=== PATIENT | female | born 1970 | race Two or more races ===

== ENCOUNTER 2024-08-23 09:55 | Outpatient (RCR) | payer MEDICAID, SELFPAY ==
--- NOTE | 2024-09-04 23:59 | CTCFLWUP_ITS ---
[address] [address] FOLLOW UP NOTE DATE OF VISIT: 08/23/2024 NAME: YAQUELIN HOPPER MR#: [id number] Account #:? : 1970 AGE: 54 DIAGNOSIS: Severe thrombocytopenia secondary to moderate hypersplenism and cirrhosis liver . History of primary biliary cirrhosis. Ms. Hopper is being followed at [facility] liver program for possibl e liver transplant in the future. Obesity. Anemia multifactorial Postmenopausal bleeding, 11/14/2023. Hysteroscopy and endometrial biopsy, benign, 11/16/2023 Endometrial biopsy, no malignancy, 02/16/2024. CKD REASON FOR TODAY?S VISIT: This is an office follow-up visit. Ms. Hopper is here at [facility]. Labs show anemia and platelets 24 . No active bleeding . Patient complaining of bruisin g easily.. Patient is pending appointment with [facility], for possible hysterectomy. Patient denie s any cough, chest pain, shortness of breath or leg cramps. Denies black bloody stool, per rectum. Denies any nosebleeds or gum bleeds. HISTORY OF PRESENT ILLNESS: PREVIOUS NOTE: Yaquelin Hopper is a 54-year-old ENG speaking female with history of diabetes since 2000 currently on multiple agents, history of primary biliary cirrhos is diagnosed by Dr. Browning of [place] with liver biopsy few years ago he is referred to hematology c darlene because of chronic thrombocytopenia which was initially noted at least 3 years ago. Platelets have been less than 50 k . She does get occasional bruising. 03/27/2018: CT scan of the abdomen and pelvis with IV contrast? 03/27/2018: Platelet count 76,000, WBC 9.3, hemoglobin 12.2. 09/30/2018: Platelet count 53,000, WBC 5.2, hemoglobin 13.4. November 2018: Patient had cholecystectomy done. 01/27/2020: Platelet count 48,000, WBC 3.3, hemoglobin 12.4 02/29/2020: Ultrasound of the abdomen? 03/09/2020: CT scan of the abdomen and pelvis with contrast? 05/09/2020: MRI of the abdomen without contrast? 11/15/2020: WBC 2.7, ANC 1.7, hemoglobin 12.6, platelets 40,000. Creatinine 1.09, AFP 2.1. 01/30/2022: WBC 2.4, ANC 1.6, hemoglobin 12.2, MCV 93, platelets 33,000, T bili 0.7, alkaline phosphata se 93, AST 27, ALT 18. 08/25/2023: WBC 2.6, ANC 1.6, hemoglobin 9.9, MCV 97, platelets unable to perform due to clumps, per lab report, alk phos 97, AST 22, ALT 11. 10/26/2023: Iron saturation 13% 11/14 to 11/21/2023: Hospitalized due to postmenopausal bleeding at [facility], transfu sed 2 units of PRBC and 2 units of platelets. 11/16/2023: Hysteroscopy and endometrial biopsy: 12/05/2023: WBC 2.2, ANC 1.4, hemoglobin 10.2, MCV 96, Platelets 18,000, creatinine 1.36, AST 24, ALT 1 2, iron saturation 26%, ferritin 91, B12 is 872, folate is>20.0 12/12/2023: WBC 2.7, ANC 1.6, hemoglobin 10.7, MCV 95, platelets 37,000, creatinine 1.39, AST 22, ALT 13, serum iron 72, ferritin 104, B12 is 873, folate is>20.0 01/14/2024: WBC 3.2, ANC 2.0, hemoglobin 11.2, MCV 96, platelets 37,000, creatinine 1.32 02/16/2024: Ultrasound pelvis transabdominal 02/16/2024: [facility] note, endometrial biopsy results 02/27/2024: WBC 3.0, ANC 1.8 hemoglobin 8.2, MCV 101, platelets 39,000 03/09/2024: WBC 2.4, ANC 1.4, hemoglobin 9.2, MCV 103, platelets 34,000, creatinine 1.38, AST 22, ALT 13 03/22/2024: WBC 2.7, ANC 1.7, hemoglobin 10.6, MCV 100, platelets 33,000, iron saturation 20%, ferriti n 65, B12 869, AFP 2.6 04/04/2024: COVID positive 04/16/2024: WBC 2.8, ANC 1.7, hemoglobin 10.4, MCV 100, platelets 37,000, no iron saturation collected , serum iron 112, ferritin 123, B12 is 2055 05/13/2024: Abdominal ultrasound Findings: Absent gallbladder Common bile duct 0.6 cm Pancreatic head 3.7 cm Aorta obscured by bowel gas Liver 16.5 cm irregular contour no focal liver lesions Normal hepatopedal portal venous flow Patent IVC Right kidney 10.9 x 6.0 x 6.1 cm renal cortex 1.5 cm Left kidney 12.3 x 5.2 x 4.8 cm cortex 1.5 cm Moderate bilateral renal parenchymal scar formation Splenomegaly 17.4 cm with portal systemic collateral vessels medial to the spleen IMPRESSION: Absent gallbladder Normal common bile duct Cirrhosis Prominent splenomegaly Portal systemic collateral vessels medial to the spleen Moderate bilateral renal parenchymal scar formation 05/18/2024: WBC 1.5, ANC 0.7, hemoglobin 10.8, MCV 97, platelets 25,000, iron saturation 56%, ferritin 170, creatinine 1.72, AST 47, ALT 25 05/27/2024: WBC 2.4, ANC 1.1, hemoglobin 11.4, MCV 97, platelets 31,000, serum iron 105, ferritin 209, AFP 3.3 06/10/2024: WBC 1.5, ANC 0.8, hemoglobin 10.1, MCV 97, platelets 24,000 07/02/2024: WBC 3.2, ANC 2.0, hemoglobin 9.0, MCV 102, platelets 40,000, iron saturation, 43%, ferriti n 103 PAST MEDICAL HISTORY: Diabetes Recurrent Necrotising faciitis Primary biliary cirrhosis, following up with Dr. Browning and [facility] CKD, following up with Dr. Neil Gout Postmenopausal bleeding, pending [facility] appt. with [facility] PAST SURGICAL HISTORY: C-sections x 2 - 1995; 2001 I and D RLQ abd - 2007 I and D for necrotizing faciitis x 12 - 2014 Abscess left breast ? 2020 Hysteroscopy and biopsy, 11/16/2023 MEDICATIONS: Vitamin C [ascorbic acid] zinc Nephro-Kathrin [b-complex with vitamin c] propranolol ursodiol Vitamin D3 [cholecalciferol (vitamin d3)] atorvastatin gabapentin [place] [hydrocodone-acetaminophen] Basaglar KwikPen U-100 Insulin [insulin glargine,human recombinant analog] furosemide insulin aspart (niacinamide) colchicine Ozempic [semaglutide] medroxyPROGESTERone Medications last reconciled by [facility] on 07/11/2024 ALLERGIES: tramadol REVIEW OF SYSTEMS Neurological: No headache, seizures or blurring of vision. Gastrointestinal: No nausea, vomiting, diarrhea or constipation. Cardiovascular: No palpitations or angina pains. Respiratory: No cough, chest pain or shortness of breath. VITAL SIGNS: Date Time PHYSICAL EXAMINATION: Alert and oriented X 4 Oral cavity: No Lesions. Chest is clear to auscultation. No wheezes or rales audible. CVS: Rhythm regular, no murmurs. Abdomen:Truncal obesity. Bruising to upper and lower abdomen, hard to touch. Extremities: No pedal edema, no cyanosis. LABORATORY DATA: Date Time ASSESSMENT AND PLAN: #1 Thrombocytopenia secondary to moderate hypersplenism. Patient?s platelets have been progressively getting worse Will like to start her on promacta Discussed side effects of drug and patient will like to get another opinion before committing to prom acta Patient is still obese. advised weight loss History of primary biliary cirrhosis. Ms. Hopper is being followed at [facility] liver program for possibl e liver transplant in the future. Abdominal ultrasound done on 05/13/2024 showed cirrhosis, no focal liver lesions, prominent splenomega ly as detailed above. F/u with GI, DR. Browning, upcoming US of abdomen 07/23/2024. AFP 3.3 on 05/27/2024. EGD, normal according to patient, 2021, Dr. Gonzales. Colonosocpy, normal according to patient, Dr. Gonzales. Will refer to [facility] for opinion on management Get EGD and colonoscopy reports 2. CKD f/u with nephrology. #3 Anemia likely multifactorial including liver and kidney disease History of iron deficiency anemia but labs stable now 10/26/2023. Hemoglobin 9.0, MCV 92, iron satur ation 43%, ferritin 103 07/02/2024. Postmenopausal bleeding, 11/14/2023. Hysteroscopy and endometrial biopsy, benign, 11/16/2023 Endometrial biopsy, no malignancy, 02/16/2024. [facility] 02/[facility]24 to 02/20/2024 due to postmenopausal bleeding, bleeding improved af ter tranexamic acid. No further bleeding episodes. #4. DM Continue f/u with PCP for management. #6. Obesity. Lifestyle modifications and advised to speak to PCP for oxempic. Will start on promacta after she had opinion with Dr Eller Patient encouraged to follow up at [facility] and follow with us as needed basis RTC in 3-[address] Gresham Electronically Signed by: {Object.Sanct_ID2*PnP.NameFL}, {Object.Sanct_ID2*PnP.Suffix} on {Object.[place] ct_Date2@d01b} at {Object.Sanct_Time2@t3b} cc: Jose Petersen MD [facility], Referring: Vivi Petersen MD [facility] This document was completed utilizing speech recognition software. Grammatical errors, random word in sertions, pronoun errors, and incomplete sentences are an occasional consequence of this system due t o software limitations, ambient noise, and hardware issues. Any formal questions or concerns about e content, text or information contained within the body of this dictation should be directly address ed to the provider for clarification. Patient: HOPPERYAQUELINMelvin : 1970 MR#: [id number] Account #: ?? FOLLOW UP NOTE Page 9 of 9
== END 2024-08-28 23:59 | disposition home or self-care (01) ==
LOC: SCTC 09:55
PROVIDERS: PCP Family Medicine; Referring Provider Family Medicine; Visit Provider Internal Medicine Hematology & Oncology
DX: D69.6 Thrombocytopenia, unspecified (principal); D73.1 Hypersplenism; E11.22 Type 2 diabetes mellitus with diabetic chronic kidney disease; N18.9 Chronic kidney disease, unspecified; D63.1 Anemia in chronic kidney disease; E66.9 Obesity, unspecified; Z68.43 Body mass index [BMI] 50.0-59.9, adult
CPT/HCPCS: 99212; G0463

== ENCOUNTER → 2024-10-28 | Outpatient (CLI) | payer MEDICAID, SELFPAY ==
[2024-10-28 10:42] LABS: Basophils % (Auto) 0 % (0-2.5); Eosinophils # (Auto) 0.1 Thou/mm3 (0.0-0.5); Eosinophils % (Auto) 4 % (0-10); Hematocrit 29.5 % (36.0-46.0); Hemoglobin 9.7 g/dL (12.0-16.0); Immature Granulocytes % (Auto) 1 % (0-0); Immature Granulocytes Auto 0.03 Thou/mm3 (0.00-0.00); Lymphocytes # (Auto) 0.8 Thou/mm3 (1.0-4.8); Lymphocytes % (Auto) 22 % (10-50); Mean Corpuscular HGB Conc 32.9 g/dl (31.0-37.0); Mean Corpuscular Hemoglobin 31.6 pg (25.0-35.0); Mean Corpuscular Volume 96 fL (80-100); Monocytes # (Auto) 0.3 Thou/mm3 (0.0-0.8); Monocytes % (Auto) 9 % (0-12); Neutrophils # (Auto) 2.2 Thou/mm3 (1.8-7.7); Neutrophils % (Auto) 64 % (37-80); Nucleated Red Blood Cell % 0 /100 WBC (0); RDW Standard Deviation 49.5 fL (36.4-46.3); Red Blood Count 3.07 Miln/mm3 (4.00-5.20); White Blood Count 3.4 Thou/mm3 (3.6-11.0)
[2024-10-28 10:53] LABS: Platelet Count 39 Thou/mm3 (140-440)
[2024-10-28 11:16] LABS: Alanine Aminotransferase 20 U/L (10-49); Albumin, Serum 3.1 gm/dL (3.5-5.0); Albumin/Globulin Ratio 0.9 (1.2-2.2); Alkaline Phosphatase 59 U/L (46-116); Anion Gap 8 (7-16); Aspartate Amino Transferase 26 U/L (0-34); BUN/Creatinine Ratio 14 Ratio (12-20); Bilirubin,Total 1.4 mg/dL (0.3-1.2); Blood Urea Nitrogen 23 mg/dL (9-23); Calcium 9.3 mg/dL (8.3-10.6); Carbon Dioxide 26.7 mMol/L (20.0-31.0); Chloride 108 mMol/L (98-107); Creatinine (Component) 1.7 mg/dL (0.6-1.3); Globulin 3.4 gm/dL (2.3-3.5); Glucose 146 mg/dL (74-106); Osmolality,Calculated 291 (275-295); Potassium 4.2 mMol/L (3.4-5.1); Sodium 143 mMol/L (136-145); Total Protein 6.5 gm/dL (5.7-8.2); eGFR 35 See Note
[2024-10-28 12:15] LABS: Slide Review Platelets confirmed
== END | disposition home or self-care (01) ==
LOC: COPL 09:49 → SCTO 09:50
PROVIDERS: PCP Optometrist; Referring Provider Internal Medicine Hematology & Oncology; Visit Provider Internal Medicine Hematology & Oncology
DX: D69.59 Other secondary thrombocytopenia (principal)
CPT/HCPCS: 36415; 80053; 82105; 85025

== ENCOUNTER 2024-11-02 08:23 | Outpatient (RCR) | payer MEDICAID, SELFPAY | END 2024-11-26 23:59 | disposition home or self-care (01) | LOC: SCTC 08:23 | PROVIDERS: PCP Optometrist; Referring Provider Optometrist; Visit Provider Nurse Practitioner Family | DX: D69.6 Thrombocytopenia, unspecified (principal); E66.9 Obesity, unspecified; Z68.43 Body mass index [BMI] 50.0-59.9, adult; D73.1 Hypersplenism; K74.3 Primary biliary cirrhosis; D50.9 Iron deficiency anemia, unspecified | CPT/HCPCS: 99212; G0463 ==

== ENCOUNTER → 2024-11-29 | Outpatient (CLI) | payer MEDICAID, SELFPAY ==
[2024-11-29 10:56] LABS: Albumin, Serum 3.4 gm/dL (3.5-5.0); Anion Gap 7 (7-16); BUN/Creatinine Ratio 19 Ratio (12-20); Blood Urea Nitrogen 37 mg/dL (9-23); Calcium 8.8 mg/dL (8.3-10.6); Calcium (Corrected) 9.3 mg/dL (8.5-10.1); Chloride 115 mMol/L (98-107); Creatinine (Component) 1.9 mg/dL (0.6-1.3); Glucose 101 mg/dL (74-106); Osmolality,Calculated 297 (275-295); Phosphorous 4.1 mg/dL (2.4-5.1); Potassium 4.8 mMol/L (3.4-5.1); Sodium 145 mMol/L (136-145); eGFR 31 See Note
== END | disposition home or self-care (01) ==
LOC: COPL 09:52
PROVIDERS: PCP Family Medicine; Referring Provider Internal Medicine; Visit Provider Internal Medicine
DX: E11.22 Type 2 diabetes mellitus with diabetic chronic kidney disease (principal); E11.65 Type 2 diabetes mellitus with hyperglycemia; I12.9 Hypertensive chronic kidney disease with stage 1 through stage 4 chronic kidney disease, or unspecified chronic kidney disease; N18.31 Chronic kidney disease, stage 3a; E66.9 Obesity, unspecified; D69.6 Thrombocytopenia, unspecified; E88.09 Other disorders of plasma-protein metabolism, not elsewhere classified; K74.3 Primary biliary cirrhosis
CPT/HCPCS: 36415; 80069

== ENCOUNTER 2024-11-30 08:38 | Outpatient (RCR) | payer MEDICAID, SELFPAY | END 2024-12-27 23:59 | disposition home or self-care (01) | LOC: SCTC 08:38 | PROVIDERS: PCP Family Medicine; Referring Provider Family Medicine; Visit Provider Nurse Practitioner Family | DX: D69.6 Thrombocytopenia, unspecified (principal); D73.1 Hypersplenism; K74.5 Biliary cirrhosis, unspecified; D50.9 Iron deficiency anemia, unspecified | CPT/HCPCS: 99212; G0463 ==

== ENCOUNTER 2024-12-27 09:16 | Emergency (ER) | payer MEDICAID, SELFPAY ==
--- NOTE | 2024-12-27 | XR_ITS ---
Examination: MRI brain without intravenous contrast. Date and time of exam: December 27, 2024 1554 hours INDICATIONS: Tremors lower extremity spasticity beginning yesterday Technique: Multiple axial and sagittal images of the brain obtained. Siemens high-resolution 1.5 Evelyn short bore scanners utilized. Sagittal sections, T1-weighted, TR 500, TE 14, are performed. Axial sections proton-density and T2-weighted have been obtained. Inversion recovery axial images, TR 9, 260, TE 111, TI 2500. Diffusion weighted images, axial sections, TR 4800, TE 128, B value 1000 Axial sections, ADC map, TR 4800, TE 128 Findings: Enlargement of the sella turcica is not present. The optic chiasm and infundibular are not remarkable. Prepontine and interpeduncular cisterns are not enlarged. There is no localized enlargement of the medulla or mar. Fourth ventricle and cerebellar tonsils appear normal in position. No subacute area of hemorrhage density is seen. Mass in the cerebellopontine angle region is not evident. Globes symmetrical. Orbital musculature including medial lateral rectus muscles do not exhibit abnormality. Diffusion-weighted images demonstrate no focus of restricted diffusion. Increased white matter signal multiple punctate foci increased signal in the white matter Mass effect upon the ventricular system is not identified. Impression: Demyelinating disease
[2024-12-27 09:16] VITALS: BMI 52.1
[2024-12-27 09:24] VITALS: BP 165/76; PULSE 82; RESP 19; TEMP 37.2; O2SAT 97
--- NOTE | 2024-12-27 09:34 | EKG_ITS ---
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1970 Requested By: Zuhair Miller (KEZIA) Order Number: [id number] Reading MD: Zuhair Miller (APPEALS BOARD REFEREE) Measurements Intervals [place] Rate: 79 P: 21 CT: 145 QRS: -20 QRSD: 82 T: 62 QT: 356 QTc: 408 Interpretive Statements SINUS RHYTHM WITH OCCASIONAL VENTRICULAR PREMATURE COMPLEXES POSSIBLE ANTERIOR MYOCARDIAL INFARCTION , PROBABLY OLD [30 ms Q WAVE IN V3/V4, OR R < 0.2 mV IN V4] Compared to ECG 10/25/2023 15:41:52 Ventricular premature complex(es) now present Myocardial infarct finding now present T-wave abnormality no longer present /store/S0/[id number]/[id number].pdf
--- NOTE | 2024-12-27 09:34 | XR_ITS ---
Examination: CT brain head without contrast. 2-D sagittal coronal reconstructions Date and time of exam:December 27, 2024 0950 hours INDICATIONS: Onset slurred speech generalized body weakness today CTDI: vol (mGy):65.7 DLP: (mGycm):1361 Technique: Multiple CT axial sections of the brain have been obtained, 5 mm slice thickness. Contrast has not been administered. 2-D sagittal, coronal reconstructions have been obtained Low dose protocols were performed. One or more of the following dose reduction techniques were used; automated exposure control, adjustment of the mA and/or KV according to patient size, use of iterative reconstruction technique. Findings: No significant ventricular enlargement. Intra-axial or extra-axial hemorrhage density is not seen. No mass effect or midline shift Basal cisterns are not remarkable. Fourth ventricle is midline. Cranial vault intact. Impression: Negative for acute hemorrhage, mass effect or midline shift As clinically warranted, brain MRI follow-up would best assess for demyelinating disease, acute ischemic change
--- NOTE | 2024-12-27 09:34 | XR_ITS ---
Examination: PA lateral chest 2 views TECHNIQUE: Upright PA lateral chest 2 views Exam date and time: December 27, 2024 0945 hours Comparison October 25, 2023 INDICATIONS: Chest pain today. FINDINGS: Mild prominence left ventricle No lobar pneumonia or pulmonary edema Moderate osteopenia IMPRESSION: No lobar pneumonia or pulmonary edema
--- NOTE | 2024-12-27 09:35 | PD.EDRME ---
Rapid Medical Screening Exam RME Arrival date/time: 12/27/24 09:16 54-year-old female presents emerged from today complains of dizziness and weakness ongoing since yesterday Chief Complaint: General Adult/Misc Complain Vital signs: Vital Signs Temperature 99.0 F 12/27/24 09:24 Pulse Rate 82 12/27/24 09:24 Respiratory Rate 19 12/27/24 09:24 Blood Pressure 165/76 H 12/27/24 09:24 Pulse Oximetry (%) 97 12/27/24 09:24 Oxygen Delivery Method Room Air 12/27/24 09:24
[2024-12-27 10:19] LABS: Collection Type, Urine Clean Catch
[2024-12-27 10:36] LABS: Basophils % (Auto) 0 % (0-2.5); Eosinophils # (Auto) 0.2 Thou/mm3 (0.0-0.5); Eosinophils % (Auto) 5 % (0-10); Hematocrit 34.7 % (36.0-46.0); Hemoglobin 11.7 g/dL (12.0-16.0); Immature Granulocytes % (Auto) 0 % (0-0); Immature Granulocytes Auto 0.01 Thou/mm3 (0.00-0.00); Lymphocytes # (Auto) 0.7 Thou/mm3 (1.0-4.8); Lymphocytes % (Auto) 17 % (10-50); Mean Corpuscular HGB Conc 33.7 g/dl (31.0-37.0); Mean Corpuscular Hemoglobin 31.7 pg (25.0-35.0); Mean Corpuscular Volume 94 fL (80-100); Monocytes # (Auto) 0.3 Thou/mm3 (0.0-0.8); Monocytes % (Auto) 8 % (0-12); Neutrophils # (Auto) 2.9 Thou/mm3 (1.8-7.7); Neutrophils % (Auto) 70 % (37-80); Nucleated Red Blood Cell % 0 /100 WBC (0); RDW Standard Deviation 48.3 fL (36.4-46.3); Red Blood Count 3.69 Miln/mm3 (4.00-5.20); White Blood Count 4.2 Thou/mm3 (3.6-11.0)
[2024-12-27 10:45] LABS: Bacteria,Urine Rare; Bilirubin,Urine Negative (Negative); Blood,Urine Negative (Negative); Clarity,Urine Clear (Clear/Hazy); Color,Urine Yellow (Lt Yel-Yel); Glucose, Urine Negative (Negative); Ketones,Urine Negative (Negative); Leukocyte Esterase,Urine Negative (Negative); Nitrite,Urine Negative (Negative); Protein,Urine 1+ (Neg - Trace); RBC,Urine < 1 /hpf (0-3); Specific Gravity,Urine 1.017 (1.001-1.035); Squamous Epithelial Cell,Urine 10 /hpf (0-5); Urobilinogen,Urine Negative mg/dL (0.0-1.0); WBC,Urine 3 /hpf (0-5)
[2024-12-27 10:45] LABS: INR 1.3 (0.9-1.3); Partial Thromboplastin Time 26.3 Seconds (22.0-36.0)
[2024-12-27 10:47] LABS: B-Type Natriuretic Peptide 54 pg/mL (0-100)
[2024-12-27 10:50] LABS: Alanine Aminotransferase 21 U/L (10-49); Albumin, Serum 3.8 gm/dL (3.5-5.0); Alkaline Phosphatase 58 U/L (46-116); Anion Gap 10 (7-16); Aspartate Amino Transferase 34 U/L (0-34); BUN/Creatinine Ratio 16 Ratio (12-20); Bilirubin,Total 2.8 mg/dL (0.3-1.2); Blood Urea Nitrogen 31 mg/dL (9-23); Calcium 10.3 mg/dL (8.3-10.6); Calcium (Corrected) 10.5 mg/dL (8.5-10.1); Carbon Dioxide 22.9 mMol/L (20.0-31.0); Chloride 111 mMol/L (98-107); Creatinine (Component) 1.9 mg/dL (0.6-1.3); Estimated Creatinine Clearance 43.7 mL/min (>60); Globulin 3.9 gm/dL (2.3-3.5); Glucose 136 mg/dL (74-106); Osmolality,Calculated 295 (275-295); Potassium 4.9 mMol/L (3.4-5.1); Sodium 144 mMol/L (136-145); Total Protein 7.7 gm/dL (5.7-8.2); Troponin I < 0.020 ng/mL (0.0-0.045); eGFR 31 See Note
[2024-12-27 10:55] LABS: Platelet Count 35 Thou/mm3 (140-440)
[2024-12-27 10:59] LABS: Amphetamine/Methamp Scrn,U Negative (Negative); Barbiturate Screen,Urine Negative (Negative); Benzodiazepines Screen,Urine Negative (Negative); Benzoylecgonine Screen, Ur Negative (Negative); Fentanyl Screen,Urine Negative (Negative); Opiate Screen,Urine Negative (Negative); THC Screen,Urine Negative (Negative)
[2024-12-27 11:44] VITALS: BP 156/51; PULSE 80; RESP 22; TEMP 36.9; O2SAT 99
--- NOTE | 2024-12-27 12:12 | PD.EDADULT ---
ED General RME/HPI General Chief complaint: General Adult/Misc Complain Stated complaint: JOSEPH/WEAKNESS X 2DAY Arrival date/time: 12/27/24 09:16 RME / HPI RME / HPI narrative: 12/27/24 09:16 54-year-old female presents emerged from today complains of dizziness and weakness ongoing since yesterday DR. ROGEL MAIN ED EVALUATION: 54 year old female with past medical history significant for thrombocytopenia, diabetes mellitus, and neuropathy presents to the Emergency Department with complaints of bilateral leg and bilateral arm jerking/ twitching movements. The patient states like when she tries to move she starts twitching and is afraid she might fall. No fall, injury, or loss of consciousness. No pain at all. No dizziness or vision changes. PCP: [facility] Related Data Home Medications ?Medication ?Instructions ?Recorded ?Confirmed liraglutide 0.6 mg/0.1 mL (18 mg/3 1.8 mg subcut QDAY 03/28/18 11/19/23 mL) subcutaneous pen injector (Victoza 3-Jose) insulin glargine 100 unit/mL (3 35 unit subcut BID 09/30/18 11/19/23 mL) subcutaneous pen (Basaglar KwikPen U-100 Insulin) ursodiol 300 mg capsule 300 mg PO TID 09/30/18 11/19/23 hydrocodone 10 mg-acetaminophen 1 tab PO DAILY PRN Pain 01/27/20 11/19/23 325 mg tablet B-complex with vitamin C 1 tab PO QDAY 10/27/23 11/19/23 ascorbic acid (vitamin C) 1,000 mg 1,000 mg PO DAILY 10/27/23 11/19/23 tablet (Vitamin C) atorvastatin 10 mg tablet 10 mg PO HS 10/27/23 11/19/23 cholecalciferol (vitamin D3) 25 25 mcg PO QDAY 10/27/23 11/19/23 mcg (1,000 unit) tablet (Vitamin D3) furosemide 20 mg tablet 20 mg PO DAILY 10/27/23 11/19/23 gabapentin 400 mg capsule 400 mg PO BID 10/27/23 11/19/23 insulin aspart U-100 100 unit/mL 10 unit subcut TIDPC 10/27/23 11/19/23 (3 mL) subcutaneous pen propranolol 10 mg tablet 10 mg PO BID 10/27/23 11/19/23 tizanidine 2 mg capsule 2 mg PO HSPRN PRN Muscle Spasm 10/27/23 11/19/23 Previous Rx's ?Medication ?Instructions ?Recorded zinc sulfate 50 mg zinc (220 mg) 220 mg (4.4 x 50 mg zinc (220 mg)) 09/08/21 capsule PO QDAY #30 caps medroxyprogesterone 10 mg tablet 10 mg PO QDAY 30 days #30 tabs 11/18/23 Allergies Allergy/AdvReac Type Severity Reaction Status Date / Time tramadol Allergy Severe Hives Verified 12/27/24 09:19 Review of Systems Review of Systems Systems Reviewed: All systems reviewed, normal except as documented Past Medical History Past Medical History CARDIAC: Positive Hypercholesterolemia and Hypertension GASTROINTESTINAL: Positive Gastrointestinal Disorders (fatty liver disease) and Obesity ENT: Positive Cataracts ENDOCRINE: Positive Endocrine Disorders and Diabetes Mellitus Type 2 HEMATOLOGIC: Positive Blood Disorders OTHER HISTORY: Positive MRSA (2007) and Chicken Pox Family History FAMILY HISTORY: Positive Family Cardiac Disorders and Family Surgery Surgical History SURGICAL: Positive Abdominal Surgery (Gall bladder removal) and Tubal Ligation Social History SMOKING STATUS: Former smoker SECOND HAND EXPOSURE: Yes SUBSTANCE USE: does not use ALCOHOL: Never ED Exam Narrative Physical exam: GENERAL APPEARANCE: alert and oriented x 4, well-developed, well-nourished, no acute distress, obese VITALS: All vitals were reviewed and the pulse ox is 99% on room air, which is normal according to my interpretation. HEENT: Normocephalic, atraumatic; pupils equal, round, reactive to light; EOMI; mucous membranes pink, moist; oropharynx clear NECK: Supple LUNGS: CTABL; no wheezes, no rales, no rhonchi HEART: Regular rate, regular rhythm; normal S1, S2; no murmurs ABDOMEN: non distended; normal BS; soft, no tenderness, no guarding, no rebound; no masses, no organomegaly, no hernia BACK: no CVA tenderness EXTREMITIES: atraumatic; no edema NEUROLOGIC: mild clonic jerking movement of the lower extremities; awake; alert and oriented x4; cranial nerves II-XII grossly intact PSYCHIATRIC: appropriate mood and affect SKIN: warm, dry, normal color; no rashes Course Quality Measures none Orders Category Date Time Status EKG (ED ONLY) *Do not use* NOW Care 12/27/24 09:34 Completed MRI Screening NOW Care 12/27/24 14:52 Active Consult to Neurology / Tele-Neurology Stat Cons 12/27/24 14:[address] head/brain wo con Stat Exams 12/27/24 09:34 Completed EKG (ED Only) Stat Exams 12/27/24 09:34 Draft MR head/brain wo con Stat Exams 12/27/24 Completed XR chest 2V Stat Exams 12/27/24 09:34 Completed B-Type Natriuretic Peptide Stat Lab 12/27/24 10:20 Completed CBC Stat Lab 12/27/24 10:20 Completed Comprehensive Metabolic Panel Stat Lab 12/27/24 10:20 Completed Drug Screen,Urine Stat Lab 12/27/24 10:08 Completed Magnesium Stat Lab 12/27/24 10:20 Completed Partial Thromboplastin Time Stat Lab 12/27/24 10:20 Completed Prothrombin Time with INR Stat Lab 12/27/24 10:20 Completed Troponin I Stat Lab 12/27/24 10:20 Completed Urinalysis Stat Lab 12/27/24 10:08 Completed Vital Signs Vital signs: Vital Signs Temperature 99.0 F 12/27/24 09:24 Pulse Rate 82 12/27/24 09:24 Respiratory Rate 19 12/27/24 09:24 Blood Pressure 165/76 H 12/27/24 09:24 Pulse Oximetry (%) 97 12/27/24 09:24 Oxygen Delivery Method Room Air 12/27/24 09:24 [facility] Patient data External records reviewed:: [facility] previous records (Reviewed oncology note for Thrombocytopenia, by Dr. Gresham, dated 09/04/24.) Clinical information provided by:: patient Social determinants that could affect healthcare access:: none Patient has the following chronic illnesses:: thrombocytopenia, diabetes mellitus, and neuropathy How is presenting disease/condition affected by chronic disease/condition?: exacerbated by Evaluation data The following diagnostics were reviewed and interpreted by me:: lab results, radiology exam(s) and EKG tracing(s) (EKG#1: EKG at 0939 hours. Interpreted by me: sinus rhythm, rate 79, no acute ischemic changes) Lab and/or radiology exams considered but not ordered:: none Interpretation Summary: Procedure(s): CT head/brain wo con Accession Number(s): [id number] cc: Paul PATTERSON),Zuhair MAST; Flip Ferraro MD; Gustavo Alfonso MD~ Examination: CT brain head without contrast. 2-D sagittal coronal reconstructions Date and time of exam:December 27, 2024 0950 hours INDICATIONS: Onset slurred speech generalized body weakness today CTDI: vol (mGy):65.7 DLP: (mGycm):1361 Technique: Multiple CT axial sections of the brain have been obtained, 5 mm slice thickness. Contrast has not been administered. 2-D sagittal, coronal reconstructions have been obtained Low dose protocols were performed. One or more of the following dose reduction techniques were used; automated exposure control, adjustment of the mA and/or KV according to patient size, use of iterative reconstruction technique. Findings: No significant ventricular enlargement. Intra-axial or extra-axial hemorrhage density is not seen. No mass effect or midline shift Basal cisterns are not remarkable. Fourth ventricle is midline. Cranial vault intact. Impression: Negative for acute hemorrhage, mass effect or midline shift As clinically warranted, brain MRI follow-up would best assess for demyelinating disease, acute ischemic change Dictated By: Gustavo Alfonso MD Procedure(s): XR chest 2V Accession Number(s): [id number] cc: Paul (KEZIA),Zuhair MAST; Gustavo Alfonso MD~ Examination: PA lateral chest 2 views TECHNIQUE: Upright PA lateral chest 2 views Exam date and time: December 27, 2024 0945 hours Comparison October 25, 2023 INDICATIONS: Chest pain today. FINDINGS: Mild prominence left ventricle No lobar pneumonia or pulmonary edema Moderate osteopenia IMPRESSION: No lobar pneumonia or pulmonary edema Dictated By: Gustavo Alfonso MD Procedure(s): MR head/brain wo con Accession Number(s): [id number] cc: Flip Ferraro MD; Gustavo Alfonso MD; Daniella Rogel MD~ Examination: MRI brain without intravenous contrast. Date and time of exam: December 27, 2024 1554 hours INDICATIONS: Tremors lower extremity spasticity beginning yesterday Technique: Multiple axial and sagittal images of the brain obtained. Siemens high-resolution 1.5 Evelyn short bore scanners utilized. Sagittal sections, T1-weighted, TR 500, TE 14, are performed. Axial sections proton-density and T2-weighted have been obtained. Inversion recovery axial images, TR 9, 260, TE 111, TI 2500. Diffusion weighted images, axial sections, TR 4800, TE 128, B value 1000 Axial sections, ADC map, TR 4800, TE 128 Findings: Enlargement of the sella turcica is not present. The optic chiasm and infundibular are not remarkable. Prepontine and interpeduncular cisterns are not enlarged. There is no localized enlargement of the medulla or mar. Fourth ventricle and cerebellar tonsils appear normal in position. No subacute area of hemorrhage density is seen. Mass in the cerebellopontine angle region is not evident. Globes symmetrical. Orbital musculature including medial lateral rectus muscles do not exhibit abnormality. Diffusion-weighted images demonstrate no focus of restricted diffusion. Increased white matter signal multiple punctate foci increased signal in the white matter Mass effect upon the ventricular system is not identified. Impression: Demyelinating disease Dictated By: Gustavo Alfonso MD Medications Medications considered but not ordered:: none Medication administrations:: see above if any Consultations Consultation(s) initiated? (list below): Yes Consultation #1 (Physician, Specialty, Details): Discussed test HPI, PMHx, lab, radiology results and/or management with Dr. Choe. Recommends MRI of the brain and then we will see about admission after MRI. Time: 14:52 Diagnosis Differential Diagnosis ED Complaint MDM: tremors, myoclonic jerking, electrolyte imbalance Most likely diagnosis given after review of the tests above:: Muscle spasticity Admission Indicated Admission indicated?: not indicated Explain why admission is indicated or not indicated:: No final disposition plan at this time, still pending diagnostic tests. Patient signout to the manufacturing supervisor 2nd shift provider. Admission Request Was there a request for admission?: No Disposition Plan Disposition Plan: other (specify) (Patient signout to the manufacturing supervisor 2nd shift provider, pending Dr. Choe's consult and final disposition.) Medical Decision Making MDM Narrative MDM Narrative: Xenia Arteaga am scribing for and in the presence of Dr. Rogel. Differential Diagnosis Differential Diagnosis: tremors, myoclonic jerking, electrolyte imbalance Lab Data 12/27/24 10:20 12/27/24 10:20 Labs: Lab Results 12/27/24 12/27/24 Range/Units 10:08 10:20 WBC 4.2 (3.6-11.0) Thou/mm3 RBC 3.69 L (4.00-5.20) Miln/mm3 Hgb 11.7 L (12.0-16.0) g/dL Hct 34.7 L (36.0-46.0) % MCV 94 (80-100) fL MCH 31.7 (25.0-35.0) pg MCHC 33.7 (31.0-37.0) g/dl RDW Std Deviation 48.3 H (36.4-46.3) fL Plt Count 35 L (140-440) Thou/mm3 Neut % (Auto) 70 (37-80) % Lymph % (Auto) 17 (10-50) % [place] % (Auto) 8 (0-12) % Eos % (Auto) 5 (0-10) % Baso % (Auto) 0 (0-2.5) % Neut # (Auto) 2.9 (1.8-7.7) Thou/mm3 Lymph # (Auto) 0.7 L (1.0-4.8) Thou/mm3 [place] # (Auto) 0.3 (0.0-0.8) Thou/mm3 Eos # (Auto) 0.2 (0.0-0.5) Thou/mm3 Baso # (Auto) 0.0 (0.0-0.2) Thou/mm3 Immature Gran # (Auto) 0.01 H (0.00-0.00) Thou/mm3 Absolute Nucleated RBC 0.00 (0.00-0.00) Thou/mm3 Immature Gran % 0 (0-0) % Nucleated RBC % 0 (0) /100 WBC PT 14.0 H (9.0-12.2) Seconds INR 1.3 (0.9-1.3) APTT 26.3 (22.0-36.0) Seconds Sodium 144 (136-145) mMol/L Potassium 4.9 (3.4-5.1) mMol/L Chloride 111 H (98-107) mMol/L Carbon Dioxide 22.9 (20.0-31.0) mMol/L Anion Gap 10 (7-16) BUN 31 H (9-23) mg/dL Creatinine 1.9 H (0.6-1.3) mg/dL Estim Creat Clear Calc 43.7 L (>60) mL/min eGFR 31 L (60 - ) See Note BUN/Creatinine Ratio 16 (12-20) Ratio Glucose 136 H (74-106) mg/dL Calculated Osmolality 295 (275-295) Calcium 10.3 (8.3-10.6) mg/dL Corrected Calcium 10.5 H (8.5-10.1) mg/dL Magnesium 2.0 (1.6-2.6) mg/dL Total Bilirubin 2.8 H (0.3-1.2) mg/dL AST 34 (0-34) U/L ALT 21 (10-49) U/L Alkaline Phosphatase 58 (46-116) U/L Troponin I < 0.020 (0.0-0.045) ng/mL B-Natriuretic Peptide 54 (0-100) pg/mL Total Protein 7.7 (5.7-8.2) gm/dL Albumin 3.8 (3.5-5.0) gm/dL Globulin 3.9 H (2.3-3.5) gm/dL Albumin/Globulin Ratio 1.0 L (1.2-2.2) Ur Collection Type Clean Catch Urine Color Yellow (Lt Yel-Yel) Urine Clarity Clear (Clear/Hazy) Urine pH 6.0 (5.0-7.0) Ur Specific [place] 1.017 (1.001-1.035) Urine Protein 1+ A (Neg - Trace) Urine Glucose (UA) Negative (Negative) Urine Ketones Negative (Negative) Urine Blood Negative (Negative) Urine Nitrite Negative (Negative) Urine Bilirubin Negative (Negative) Urine Urobilinogen (Auto) Negative (0.0-1.0) mg/dL Ur Leukocyte Esterase Negative (Negative) Urine RBC < 1 (0-3) /hpf Urine WBC 3 (0-5) /hpf Ur Squamous Epith Cells 10 H (0-5) /hpf Urine Bacteria Rare (None) Urine Opiates Screen Negative (Negative) Urine Fentanyl Screen Negative (Negative) Ur Barbiturates Screen Negative (Negative) U Amphetamin/Meth Scrn Negative (Negative) U Benzodiazepines Scrn Negative (Negative) U Cocaine Metab Screen Negative (Negative) U Marijuana (THC) Screen Negative (Negative) Misc Test Result Platelets confirmed Discharge Plan Prescriptions/Referrals Prescriptions/Med Rec: No Action hydrocodone-acetaminophen 10-325 mg tablet 1 tab PO DAILY PRN (Reason: Pain) Patient Comments: TAKE ONE TABLET BY MOUTH THREE TIMES DAILY NEEDED FOR PAIN Rx Instructions: 1-2 tabs Victoza 3-Jose 0.6 mg/0.1 mL (18 mg/3 mL) Pen Injector 1.8 mg SUB-Q QDAY ursodiol 300 mg Capsule 300 mg PO TID insulin glargine [Basaglar KwikPen U-100 Insulin] 100 unit/mL (3 mL) Insulin Pen 35 unit SUBCUT BID zinc sulfate 50 mg zinc (220 mg) Capsule 220 mg PO QDAY Qty: 30 0RF gabapentin 400 mg capsule 400 mg PO BID Patient Comments: TAKE ONE CAPSULE BY MOUTH TWICE DAILY FOR NERVE PAIN propranolol 10 mg tablet 10 mg PO BID Patient Comments: TAKE ONE TABLET BY MOUTH TWICE DAILY FOR BLOOD PRESSURE atorvastatin 10 mg tablet 10 mg PO HS Patient Comments: TAKE ONE TABLET BY MOUTH EVERY DAY FOR CHOLESTEROL furosemide 20 mg tablet 20 mg PO DAILY Patient Comments: TAKE ONE TABLET BY MOUTH EVERY MORNING A DIURETIC cholecalciferol (vitamin D3) [Vitamin D3] 25 mcg (1,000 unit) Tablet 25 mcg PO QDAY insulin aspart U-100 100 unit/mL (3 mL) Insulin Pen 10 unit SUBCUT TIDPC Rx Instructions: TID after meals B-complex with vitamin C Tablet 1 tab PO QDAY ascorbic acid (vitamin C) [Vitamin C] 1,000 mg Tablet 1,000 mg PO DAILY tizanidine 2 mg capsule 2 mg PO HSPRN PRN (Reason: Muscle Spasm) Patient Comments: TAKE ONE CAPSULE BY MOUTH TWICE DAILY NEEDED FOR MUSCLE SPASMS Rx Instructions: 1-2 tabs medroxyprogesterone 10 mg tablet 10 mg PO QDAY 30 Days Qty: 30 0RF Patient Comments: TAKE 4 TABLETS BY MOUTH EVERY DAY Rx Instructions: 1 tablet daily Referrals: Flip Ferraro MD [Primary Care Provider] - In 1 week Problem List Clinical Impression: Muscle spasticity Patient/Caregiver Discharge Instructions Print Language: Chinese
[2024-12-27 12:20] LABS: Slide Review Platelets confirmed
[2024-12-27 14:06] VITALS: BP 160/76; PULSE 81; RESP 16; TEMP 37.2; O2SAT 100
[2024-12-27 18:22] VITALS: BP 184/66; PULSE 80; RESP 20; TEMP 37.1; O2SAT 98
--- NOTE | 2024-12-27 19:15 | PD.EDADDENDU ---
Emergency Room Addendum <Thao Phillips - Last Filed: 12/27/24 21:51> Addendum Narrative: 1800 -- Care assumed from Dr. Rogel (emergency physician). Past medical, surgical, social and family history reviewed. Vitals and home medications reviewed. Results and treatment plan discussed. I will assume the care of the patient at this time and will follow the patient, pending neurology consultation by Dr. Choe and final disposition. Please refer to the emergency department record for history and examination from initial visit. The following addendum documentation note is intended to reflect any pending information, findings, or radiology results not included in the patient?s initial chart. 1829 -- Dr. Choe (neurologist) is at bedside performing a lumbar puncture. 1999 -- Dr. Choe noted that the patient exhibits signs consistent with orthostatic tremors. She recommended a 3-hour observation period in the ED prior to discharge (~1030PM). Dr. Choe has discussed the outpatient management plan directly with the patient and will be following up accordingly. She also stated that she will be ordering the necessary send-out tests for the CSF samples collected during the procedure. <Lara Ferraro - Last Filed: 12/27/24 23:11> Addendum Narrative: 1800 -- Care assumed from Dr. Rogel (emergency physician). Past medical, surgical, social and family history reviewed. Vitals and home medications reviewed. Results and treatment plan discussed. I will assume the care of the patient at this time and will follow the patient, pending neurology consultation by Dr. Choe and final disposition. Please refer to the emergency department record for history and examination from initial visit. The following addendum documentation note is intended to reflect any pending information, findings, or radiology results not included in the patient?s initial chart. 183 -- Dr. Choe (neurologist) is at bedside performing a lumbar puncture. 1999 -- Dr. Choe noted that the patient exhibits signs consistent with orthostatic tremors. She recommended a 3-hour observation period in the ED prior to discharge (~1030PM). Dr. Choe has discussed the outpatient management plan directly with the patient and will be following up accordingly. She also stated that she will be ordering the necessary send-out tests for the CSF samples collected during the procedure. 2310 -- Patient has remained stable while under my observation. Patient is stable to be discharged home and is to follow-up with Dr. Choe as discussed. MD Attestation <Thao Phillips - Last Filed: 12/27/24 21:51> MD Attestation Scribe Attestation: I, Rama Phillips, am scribing for and in the presence of Dr. Whipple. Provider Notation: Although this document has been carefully reviewed, there may still be some phonetic and other typographical errors. These errors are purely grammatical due to imperfections in the software program and should not be construed in any way to compromise the substance of the patient's medical care during this visit.
[2024-12-27 20:10] LABS: Coccid Serology, CF CSF (UCD)* See Sep Rpt
[2024-12-27 20:37] LABS: CSF Cell Count Tube # Tube # 4; CSF Color Colorless (Colorless); CSF, Appearance Clear (Clear)
[2024-12-27 20:38] LABS: CSF White Blood Cell 0 /cmm
[2024-12-27 20:41] LABS: CSF Red Blood Cell 103 /cmm
[2024-12-27 20:42] LABS: Glucose,CSF 64 mg/dL (40-70); Protein Total,CSF 65 mg/dL (8-32)
[2024-12-27 23:16] VITALS: BP 184/66; PULSE 89; RESP 24; O2SAT 96
--- NOTE | 2024-12-27 23:24 | PD.NEUROCONS ---
History of Present Illness Data of Consult Primary Care Provider: Flip Ferraro MD Consult Narrative cc:: cc: Meds Home Medications and Allergies Home Medications ?Medication ?Instructions ?Recorded ?Confirmed ?Type liraglutide 0.6 mg/0.1 mL (18 mg/3 1.8 mg subcut QDAY 03/28/18 11/19/23 History mL) subcutaneous pen injector (Victoza 3-Jose) insulin glargine 100 unit/mL (3 35 unit subcut BID 09/30/18 11/19/23 History mL) subcutaneous pen (Basaglar KwikPen U-100 Insulin) ursodiol 300 mg capsule 300 mg PO TID 09/30/18 11/19/23 History hydrocodone 10 mg-acetaminophen 1 tab PO DAILY PRN Pain 01/27/20 11/19/23 History 325 mg tablet B-complex with vitamin C 1 tab PO QDAY 10/27/23 11/19/23 History ascorbic acid (vitamin C) 1,000 mg 1,000 mg PO DAILY 10/27/23 11/19/23 History tablet (Vitamin C) atorvastatin 10 mg tablet 10 mg PO HS 10/27/23 11/19/23 History cholecalciferol (vitamin D3) 25 25 mcg PO QDAY 10/27/23 11/19/23 History mcg (1,000 unit) tablet (Vitamin D3) furosemide 20 mg tablet 20 mg PO DAILY 10/27/23 11/19/23 History gabapentin 400 mg capsule 400 mg PO BID 10/27/23 11/19/23 History insulin aspart U-100 100 unit/mL 10 unit subcut TIDPC 10/27/23 11/19/23 History (3 mL) subcutaneous pen propranolol 10 mg tablet 10 mg PO BID 10/27/23 11/19/23 History tizanidine 2 mg capsule 2 mg PO HSPRN PRN Muscle Spasm 10/27/23 11/19/23 History Allergies Allergy/AdvReac Type Severity Reaction Status Date / Time tramadol Allergy Severe Hives Verified 12/27/24 09:19 Exam - Neurology Vital Signs Temp Pulse Resp BP Pulse Ox O2 Del Method 98.8 F 89 24 H 184/66 H 96 Room Air 12/27/24 18:22 12/27/24 23:16 12/27/24 23:16 12/27/24 23:16 12/27/24 23:16 12/27/24 23:16 Results Labs 12/27/24 10:20 12/27/24 10:20 Labs: Short CBC 12/27/24 Range/Units 10:20 WBC 4.2 (3.6-11.0) Thou/mm3 Hgb 11.7 L (12.0-16.0) g/dL Hct 34.7 L (36.0-46.0) % Plt Count 35 L (140-440) Thou/mm3 BMP 12/27/24 10:20 Sodium 144 Potassium 4.9 Chloride 111 H Carbon Dioxide 22.9 BUN 31 H Creatinine 1.9 H Glucose 136 H Calcium 10.3 Cardiac Enzymes 12/27/24 Range/Units 10:20 Troponin I < 0.020 (0.0-0.045) ng/mL Liver Function 12/27/24 Range/Units 10:20 Total Bilirubin 2.8 H (0.3-1.2) mg/dL AST 34 (0-34) U/L ALT 21 (10-49) U/L Alkaline Phosphatase 58 (46-116) U/L Albumin 3.8 (3.5-5.0) gm/dL Urine 12/27/24 Range/Units 10:08 Urine Color Yellow (Lt Yel-Yel) Urine Clarity Clear (Clear/Hazy) Urine pH 6.0 (5.0-7.0) Ur Specific [place] 1.017 (1.001-1.035) Urine Protein 1+ A (Neg - Trace) Urine Glucose (UA) Negative (Negative)
--- NOTE | 2024-12-27 23:24 | EVENTNT_ITS ---
Documentation for date of: 12/27/24
--- NOTE | 2024-12-27 23:24 | PD.EVENT ---
Documentation for date of: 12/27/24
[2024-12-31 06:39] LABS: VDRL, CSF Qual* NON-REACTIVE
[2024-12-31 13:47] LABS: Albumin, CSF 33.2 mg/dL (8.0-42.0); IgG Index, CSF 0.51 (<0.70); IgG, CSF 7.8 mg/dL (0.8-7.7); IgG, Serum 1570 mg/dL (600-1640); Synthesis Rate IgG, CSF -0.2 mg/24 h (-9.9 TO +3.3)
[2025-01-03 06:59] LABS: Albumin, Serum 3.4 g/dL (3.6-5.1)
== END 2024-12-27 23:29 | disposition home or self-care (01) ==
PROVIDERS: Nurse Practitioner Primary Care; Psychiatry & Neurology Neurology; Emergency Provider Emergency Medicine; PCP Family Medicine
DX: G37.9 Demyelinating disease of central nervous system, unspecified (principal); R07.9 Chest pain, unspecified; I49.3 Ventricular premature depolarization; R47.81 Slurred speech; R53.1 Weakness
CPT/HCPCS: 36415; 70450; 70551; 71046; 80053; 80307; 81001; 82040; 82042; 82164; 82784; 82945; 83735; 83873; 83880; 83916; 84157; 84484; 85025; 85610; 85730; 86171; 86592; 89051; 93005; 99284

== ENCOUNTER 2025-01-04 22:11 | Inpatient (IN) | payer MEDICAID, SELFPAY ==
[2025-01-04 22:13] VITALS: BMI 33.8
--- NOTE | 2025-01-04 22:15 | EKG_ITS ---
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
[2025-01-04 22:28] VITALS: BP 179/74; PULSE 102; RESP 22; TEMP 38.8; O2SAT 95
--- NOTE | 2025-01-04 22:32 | XR_ITS ---
Examination: PA chest single view Technique: Upright PA chest single view Exam date and time: January 04, 2025 1040 hrs. Comparison December 27, 2024 Indications: Chest pain fever today. Findings: Mild cardiac contour Mild vascular congestion. No lobar pneumonia or pulmonary edema Moderate osteopenia Impression: Mild enlargement cardiac contour Mild vascular congestion
--- NOTE | 2025-01-04 22:34 | PD.EDRME ---
Rapid Medical Screening Exam RME Arrival date/time: 01/04/25 22:11 54F with history of thrombocytopenia and DM presents to ED with 1 day of CP, SOB, N/V, and fevers/chills. Patient was recently here where she got an LP. Chief Complaint: Chest Pain Vital signs: Vital Signs Temperature 101.9 F H 01/04/25 22:28 Pulse Rate 102 H 01/04/25 22:28 Respiratory Rate 22 H 01/04/25 22:28 Blood Pressure 179/74 H 01/04/25 22:28 Pulse Oximetry (%) 95 01/04/25 22:28 Oxygen Delivery Method Room Air 01/04/25 22:28
--- NOTE | 2025-01-04 22:52 | PD.EDCHEST ---
ED Chest Pain RME/HPI General Chief Complaint: Chest Pain Stated Complaint: FEVER, VOMITING, CHEST PAIN, SOB Time Seen by Provider: 01/04/25 22:57 Source: patient and family Arrival date/time: 01/04/25 22:11 Mode of arrival: ambulatory RME / HPI RME / HPI narrative: This section includes all my notes and documentations, including HPI, PE, and ED course.? David Green MD HPI: 54-year-old female with a past medical history of hyperlipidemia, hypertension, type II diabetes mellitus, cirrhosis, and ITP-related thrombocytopenia presents to the ED via private vehicle for evaluation of chest pain. Symptom onset began around 5:00 PM, about 5 hours prior to arrival today. She describes the pain as mild, rating it 4/10 in intensity. She also reports fever at home of 102.6?F and endorses headache. She denies cough, sore throat, urinary symptoms, or other associated complaints. She is not currently taking any anticoagulant medications. No other complaints reported. ROS: All negative except as documented in HPI. Physical Exam: General:? Alert and oriented X 3.? No acute distress when remaining still.? Fever noted. Eyes:? Conjunctivae and lids clear. PERRL. EOMI. ENT:? No nasal congestion.? Pharynx normal. TM normal bilaterally. Neck:? Supple. Heart:? RRR. Lungs:? No respiratory distress.? Good air movement with no rhonchi or wheezing or rails. Abdomen:? Soft with equivocal epigastric tenderness. Back: No CVA tenderness. Legs:? No clubbing, cyanosis, edema. Skin:? Warm and dry.? Neuro:? Alert and oriented X 3.? Cranial nerves II to XII grossly normal. No peripheral motor deficits. I reviewed all diagnostic test results. My interpretation of the EKG is sinus rhythm with no acute ST?T changes. My interpretation of the chest x-ray is increased vascular congestion. My review of the gallbladder US report is no gallbladder disease. My review of the chest/abdomen/pelvis CT report is: Cirrhosis and gastroesophageal varices. Blood tests and urine tests remarkable for WBC 2.1, PLT 22, elevated lactic acid, CR 2.5, Mg 1.5, troponin 0.061, procalcitonin 7.51, and severe UTI. COVID/influenza/strep/RSV negative. At this point, diagnoses include Sepsis, UTI (lower urinary tract infection), Thrombocytopenia, Chest pain, Cirrhosis, Acute kidney injury superimposed on CKD, Hypomagnesemia. Treatment here included Acetaminophen, IV fluid, Ceftriaxone, Magnesium Sulfate, Ketorolac Tromethamine, Morphine Sulfate. Patient remained stable. I discussed the case with our hospitalist. About the presentation and exam and diagnostics and treatments here. And need of further care in the hospital. Will accept the patient. David Green MD Related Data Home Medications ?Medication ?Instructions ?Recorded ?Confirmed liraglutide 0.6 mg/0.1 mL (18 mg/3 1.8 mg subcut QDAY 03/28/18 11/19/23 mL) subcutaneous pen injector (Victoza 3-Jose) insulin glargine 100 unit/mL (3 35 unit subcut BID 09/30/18 11/19/23 mL) subcutaneous pen (Basaglar KwikPen U-100 Insulin) ursodiol 300 mg capsule 300 mg PO TID 09/30/18 11/19/23 hydrocodone 10 mg-acetaminophen 1 tab PO DAILY PRN Pain 01/27/20 11/19/23 325 mg tablet B-complex with vitamin C 1 tab PO QDAY 10/27/23 11/19/23 ascorbic acid (vitamin C) 1,000 mg 1,000 mg PO DAILY 10/27/23 11/19/23 tablet (Vitamin C) atorvastatin 10 mg tablet 10 mg PO HS 10/27/23 11/19/23 cholecalciferol (vitamin D3) 25 25 mcg PO QDAY 10/27/23 11/19/23 mcg (1,000 unit) tablet (Vitamin D3) furosemide 20 mg tablet 20 mg PO DAILY 10/27/23 11/19/23 gabapentin 400 mg capsule 400 mg PO BID 10/27/23 11/19/23 insulin aspart U-100 100 unit/mL 10 unit subcut TIDPC 10/27/23 11/19/23 (3 mL) subcutaneous pen propranolol 10 mg tablet 10 mg PO BID 10/27/23 11/19/23 tizanidine 2 mg capsule 2 mg PO HSPRN PRN Muscle Spasm 10/27/23 11/19/23 Previous Rx's ?Medication ?Instructions ?Recorded zinc sulfate 50 mg zinc (220 mg) 220 mg (4.4 x 50 mg zinc (220 mg)) 09/08/21 capsule PO QDAY #30 caps medroxyprogesterone 10 mg tablet 10 mg PO QDAY 30 days #30 tabs 11/18/23 Allergies Allergy/AdvReac Type Severity Reaction Status Date / Time tramadol Allergy Severe Hives Verified 01/04/25 22:13 Review of Systems Review of Systems Systems Reviewed: All systems reviewed, normal except as documented Past Medical History Past Medical History NEUROLOGIC: Negative Neurological Disorders or Seizures CARDIAC: Positive Hypercholesterolemia and Hypertension; Negative Cardiac Disorders or Congestive Heart Failure RESPIRATORY: Negative Chronic Obstructive Pulmonary Disease (COPD) or Asthma GASTROINTESTINAL: Positive Gastrointestinal Disorders (fatty liver disease), Cirrhosis and Obesity GENITOURINARY: Negative Genitourinary Disorders or Renal Disease MUSCULOSKELETAL: Negative Musculoskeletal Disorders ENT: Positive Cataracts ENDOCRINE: Positive Endocrine Disorders and Diabetes Mellitus Type 2; Negative Diabetes Mellitus Type 1 HEMATOLOGIC: Positive Blood Disorders; Negative Sickle Cell Disease OTHER HISTORY: Positive MRSA (2007) and Chicken Pox; Negative Autoimmune Disease, Blood Transfusions, Blood Transfusion Reaction, Anesthesia Reactions or Cancer Family History FAMILY HISTORY: Positive Family Cardiac Disorders and Family Surgery; Negative Family Psychiatric Problems, Family Respiratory Disorders, Family Gastrointestinal Problems, Family Cancer or Family Anesthesia Reaction Surgical History SURGICAL: Positive Abdominal Surgery (Gall bladder removal) and Tubal Ligation Social History SMOKING STATUS: Former smoker SECOND HAND EXPOSURE: Yes SUBSTANCE USE: does not use Course Course Course Narrative: 2227 Sepsis alert initiated. Orders made at this time are congruent with ED Adult Sepsis Order List. Re-evaluation is to be completed. 2299 Sepsis reassessment performed consisting of lab review, vitals, physical exam including auscultation of heart, lungs, and visual evaluation of capillary refills, mucosal membranes and extremities. Quality Measures Current suspected stage: sepsis Possible source: unknown Blood cultures ordered: yes Antibiotic ordered: Yes Pertinent labs: 01/04/25 01/05/25 22:57 03:20 Lactic Acid 2.8 H mMol/L 3.4 H mMol/L (0.4-2.0) (0.4-2.0) Procalcitonin 7.51 H ng/ml (0.0-0.49) sepsis Orders Category Date Time Status Admit to Inpatient Status Routine Admission 01/05/25 04:11 Active Bedside Blood Glucose ACHS Care 01/05/25 04:14 Active Bedside COVID-19 Antigen Test NOW Care 01/04/25 22:15 Active Bedside Influenza A&B Antigen Test NOW Care 01/04/25 22:15 Completed COVID-19 Screening Questionnaire NOW Care 01/05/25 03:56 Active Decision to Admit X1 Care 01/05/25 03:56 Completed EKG (ED ONLY) *Do not use* NOW Care 01/04/25 22:15 Completed Insert IV NOW Care 01/04/25 22:31 Active Straight [In and Out Catheter] X1 Care 01/04/25 22:58 Active Consult to Cardiology Routine Cons 01/05/25 04:[address] chest abdomen pelvis wo Stat Exams 01/05/25 00:08 Ordered EKG (ED Only) Stat Exams 01/04/25 22:15 Draft US gall bladder Stat Exams 01/05/25 00:09 Taken XR chest 1V portable Stat Exams 01/04/25 22:32 Completed B-Type Natriuretic Peptide Stat Lab 01/04/25 22:57 Completed Blood Culture (Lab) Stat Lab 01/04/25 22:50 Received CBC Stat Lab 01/04/25 22:59 Completed CRP [C-Reactive Protein] Stat Lab 01/04/25 22:57 Completed Comprehensive Metabolic Panel Stat Lab 01/04/25 22:57 Completed ESR [Sed Rate (ESR)] Stat Lab 01/04/25 22:59 Completed Free T4 (Free Thyroxine) Stat Lab 01/04/25 22:57 Completed Lactate (Lactic Acid) Stat Lab 01/04/25 22:57 Completed Lactic Acid, 3 HR Stat Lab 01/05/25 03:20 Completed Lipase Stat Lab 01/04/25 22:57 Completed Magnesium Stat Lab 01/04/25 22:57 Completed Zavala Screen Stat Lab 01/04/25 22:57 Received Procalcitonin Stat Lab 01/04/25 22:57 Completed RSV [Respiratory Syncytial Virus Ag] Stat Lab 01/05/25 02:01 Completed Strep A Rapid Stat Lab 01/05/25 02:01 Completed TSH [Thyroid Stimulating Hormone] Stat Lab 01/04/25 22:57 Completed Troponin I Stat Lab 01/04/25 22:57 Completed Troponin I Stat Lab 01/05/25 01:56 Completed Urinalysis, C/S if Indicated Stat Lab 01/04/25 23:55 Completed Acetaminophen Tab [Tylenol ES Tab] Med 01/04/25 22:35 Discontinued 1,000 mg PO X1 ONE Acetaminophen Tab [Tylenol Tab] Med 01/05/25 04:01 Once 650 mg PO X1 ONE Cefepime Inj [Maxipime Inj] 1 gm Med 01/05/25 04:12 Ordered SODIUM CHLORIDE 0.9% (Popper) [Ns 0.9% (P)] 50 ml IV Q12HR Cefepime Inj [Maxipime Inj] 1 gm Med 01/05/25 04:45 Active SODIUM CHLORIDE 0.9% (Popper) [Ns 0.9% (P)] 50 ml IV X1 Dextrose 50% Syr [D50w Syringe Abboject] Med 01/05/25 04:14 Ordered 25 ml IV Q15MIN PRN Dextrose 50% Syr [D50w Syringe Abboject] Med 01/05/25 04:14 Ordered 50 ml IV Q15MIN PRN Glucagon Inj Med 01/05/25 04:14 Ordered 1 mg IM Q15MIN PRN INSULIN LISPRO (AdmeLOG) [HumaLOG] Med 01/05/25 07:30 Ordered See Protocol SC AC Insulin Glargine Inj [Lantus Inj] Med 01/05/25 09:00 Ordered 35 unit SC BID Ketorolac Inj [Toradol Inj] Med 01/04/25 22:58 Discontinued 30 mg IVP X1 ONE Magnesium Sulfate 2 GM Ivpb [Magnesium Sulfate Ivpb] Med 01/05/25 00:08 Discontinued 2 gm in 50 ml IV X1 Morphine Inj Med 01/05/25 02:58 Discontinued 4 mg IVP X1 ONE Ringers Lactated 1000 ml [Lactated Ringers] 1,000 ml Med 01/05/25 04:02 Ordered IV 999 mls/hr Sodium Chloride 0.9% 1000 ml [Ns] 1,000 ml Med 01/04/25 22:31 Discontinued IV 999 mls/hr cefTRIAXone/D5w 1gm IV premix [Rocephin/D5w 1gm IV Med 01/04/25 22:32 Discontinued premix] 1 gm in 50 ml IV X1 Vital Signs Vital signs: Vital Signs Temperature 101.9 F H 01/04/25 22:28 Pulse Rate 102 H 01/04/25 22:28 Respiratory Rate 22 H 01/04/25 22:28 Blood Pressure 179/74 H 01/04/25 22:28 Pulse Oximetry (%) 95 01/04/25 22:28 Oxygen Delivery Method Room Air 01/04/25 22:28 Chest Pain MDM Narrative MDM Narrative:: Scribe Attestation: I, Rama Phillips am scribing for and in the presence of Dr. Green. Provider Notation: Although this document has been carefully reviewed, there may still be some phonetic and other typographical errors. These errors are purely grammatical due to imperfections in the software program and should not be construed in any way to compromise the substance of the patient's medical care during this visit. Patient data External records reviewed:: [facility] previous records (Chart review reveals a recent ED visit on 12/27/2024 for muscle spasticity, during which a bedside lumbar puncture was performed by Dr. Choe (Neurology). CSF cultures were obtained and are pending outpatient follow-up.) Clinical information provided by:: patient and family Social determinants that could affect healthcare access:: none Patient has the following chronic illnesses:: HLD, HTN, NAFLD, DM2, Cirrhosis PSHx: cholecystectomy, tubal ligation How is presenting disease/condition affected by chronic disease/condition?: uneffected by Evaluation data The following diagnostics were reviewed and interpreted by me:: lab results, radiology exam(s) and EKG tracing(s) Lab and/or radiology exams considered but not ordered:: None Interpretation Summary: Sepsis, UTI (lower urinary tract infection), Thrombocytopenia, Chest pain, Cirrhosis, Acute kidney injury superimposed on CKD, Hypomagnesemia Medications / Prescriptions Medications or Prescriptions considered but not ordered:: None Medication administrations:: Medication Administration History Dextrose (Dextrose 50%-Water Inj 50 Ml Syringe) 25 ml IV Q15MIN PRN PRN Reason: BG 50-70 responsive npo pt Stop: 02/04/25 04:13 Dextrose (Dextrose 50%-Water Inj 50 Ml Syringe) 50 ml IV Q15MIN PRN PRN Reason: BG <50 OR BG <70 & pt unresponsive Stop: 02/04/25 04:13 Glucagon (Glucagon Inj 1 Mg Vial) 1 mg IM Q15MIN PRN PRN Reason: BG <70, and no IV access Lactated Ringer's (Lactated Ringers) 1,000 mls @ 999 mls/hr IV .Q1H1M ONE Stop: 01/05/25 05:02 Cefepime HCl 1 gm/ Sodium (Chloride) 50 mls @ 100 mls/hr IV Q12HR SHERYL Stop: 01/12/25 04:11 Cefepime HCl 1 gm/ Sodium (Chloride) 50 mls @ 100 mls/hr IV X1 ONE Stop: 01/05/25 05:14 Insulin Glargine (Insulin Glargine (Lantus) 5 Unit/0.05 Ml (Per 5 Units)) 35 unit SC BID SHERYL Stop: 02/04/25 08:59 Insulin Human Lispro (Insulin Lispro (Admelog) 1 Unit/0.01 Ml Unit) 0 unit SC AC [facility]; Protocol Stop: 02/04/25 07:29 Discontinued Medications Acetaminophen (Acetaminophen 500 Mg Tablet) 1,000 mg PO X1 ONE Stop: 01/04/25 22:36 Last Admin: 01/04/25 22:58 Dose: 1,000 mg Documented By: EF Acetaminophen (Acetaminophen 325 Mg Tablet) 650 mg PO X1 ONE Stop: 01/05/25 04:02 Sodium Chloride (Ns) 1,000 mls @ 999 mls/hr IV .Q1H1M ONE Stop: 01/04/25 23:31 Last Infusion: 01/05/25 00:46 Dose: Infused Documented By: Admin: 01/04/25 22:59 Dose: 999 mls/hr Documented By: EF Ceftriaxone Sodium/Dextrose (Rocephin/D5w 1gm Iv Premix) 1 gm in 50 mls @ 100 mls/hr IV X1 ONE Stop: 01/04/25 23:01 Last Infusion: 01/04/25 23:28 Dose: Infused Documented By: Admin: 01/04/25 22:58 Dose: 100 mls/hr Documented By: LUIS Magnesium Sulfate (Magnesium Sulfate Ivpb) 2 gm in 50 mls @ 25 mls/hr IV X1 ONE Stop: 01/05/25 02:07 Last Infusion: 01/05/25 02:36 Dose: Infused Documented By: Admin: 01/05/25 00:36 Dose: 25 mls/hr Documented By: JOSE Ketorolac Tromethamine (Ketorolac Inj 30 Mg/Ml Vial) 30 mg IVP X1 ONE Stop: 01/04/25 22:59 Last Admin: 01/04/25 23:15 Dose: 30 mg Documented By: BARRON Morphine Sulfate (Morphine Sulf Inj 10 Mg/Ml Vial) 4 mg IVP X1 ONE Stop: 01/05/25 02:59 Last Admin: 01/05/25 03:18 Dose: 4 mg Documented By: EF Treatment here included Acetaminophen, IV fluid, Ceftriaxone, Magnesium Sulfate, Ketorolac Tromethamine, Morphine Sulfate. Consultations Consultation(s) initiated? (list below): No Diagnosis Chest Pain Differential Diagnosis: pneumothorax, stable angina, unstable angina pectoris, atypical chest pain, st elevation myocardial infarction, costochondritis, chest pain, biliary colic and other (UTI, pneumonia, COVID, influenza, RSV, strep, sepsis) Most likely diagnosis given after review of the tests above:: Sepsis, UTI (lower urinary tract infection), Thrombocytopenia, Chest pain, Cirrhosis, Acute kidney injury superimposed on CKD, Hypomagnesemia Admission Indicated Admission indicated?: indicated Explain why admission is indicated or not indicated:: Sepsis, UTI (lower urinary tract infection), Thrombocytopenia, Chest pain, Cirrhosis, Acute kidney injury superimposed on CKD, Hypomagnesemia Admission Request Was there a request for admission?: Yes Admission Attestation Admission request attestation: Discussed case with Hospitalist service regarding admission. Discussed patients ED course, exam findings, labs, and radiology results. The Hospitalist [agrees] to accept the patient for admission. Disposition Plan Disposition Plan: Admit Critical Care Time Critical Care Time Critical Care Time: Yes Total Critical Care Time (min.): 35 Attestation: The high probability of sudden, clinically significant deterioration in the patient?s condition required the highest level of my preparedness to intervene urgently. ? The services I provided to this patient were to treat and/or prevent clinically significant deterioration. Services included the following: chart data review, reviewing nursing notes and/or old charts, documentation time, homemaking rehabilitation consultant collaboration regarding findings and treatment options, medication orders and management, direct patient care, vital sign assessments and ordering, interpreting and reviewing diagnostic studies and lab tests. ? Aggregate critical care time includes only time during which I was engaged in work directly related to the patient?s care, as described above, whether at bedside or elsewhere in the Emergency Department. It did not include time spent performing other reported procedures or the services of residents, students, nurses or physician assistants. Discharge Plan Plan Patient Disposition: Admit Acute Care w/in Hospital Prescriptions/Referrals Prescriptions/Med Rec: No Action hydrocodone-acetaminophen 10-325 mg tablet 1 tab PO DAILY PRN (Reason: Pain) Patient Comments: TAKE ONE TABLET BY MOUTH THREE TIMES DAILY NEEDED FOR PAIN Rx Instructions: 1-2 tabs Victoza 3-Jose 0.6 mg/0.1 mL (18 mg/3 mL) Pen Injector 1.8 mg SUB-Q QDAY ursodiol 300 mg Capsule 300 mg PO TID insulin glargine [Basaglar KwikPen U-100 Insulin] 100 unit/mL (3 mL) Insulin Pen 35 unit SUBCUT BID zinc sulfate 50 mg zinc (220 mg) Capsule 220 mg PO QDAY Qty: 30 0RF gabapentin 400 mg capsule 400 mg PO BID Patient Comments: TAKE ONE CAPSULE BY MOUTH TWICE DAILY FOR NERVE PAIN propranolol 10 mg tablet 10 mg PO BID Patient Comments: TAKE ONE TABLET BY MOUTH TWICE DAILY FOR BLOOD PRESSURE atorvastatin 10 mg tablet 10 mg PO HS Patient Comments: TAKE ONE TABLET BY MOUTH EVERY DAY FOR CHOLESTEROL furosemide 20 mg tablet 20 mg PO DAILY Patient Comments: TAKE ONE TABLET BY MOUTH EVERY MORNING A DIURETIC cholecalciferol (vitamin D3) [Vitamin D3] 25 mcg (1,000 unit) Tablet 25 mcg PO QDAY insulin aspart U-100 100 unit/mL (3 mL) Insulin Pen 10 unit SUBCUT TIDPC Rx Instructions: TID after meals B-complex with vitamin C Tablet 1 tab PO QDAY ascorbic acid (vitamin C) [Vitamin C] 1,000 mg Tablet 1,000 mg PO DAILY tizanidine 2 mg capsule 2 mg PO HSPRN PRN (Reason: Muscle Spasm) Patient Comments: TAKE ONE CAPSULE BY MOUTH TWICE DAILY NEEDED FOR MUSCLE SPASMS Rx Instructions: 1-2 tabs medroxyprogesterone 10 mg tablet 10 mg PO QDAY 30 Days Qty: 30 0RF Patient Comments: TAKE 4 TABLETS BY MOUTH EVERY DAY Rx Instructions: 1 tablet daily Referrals: Franko Aguilar MD [Primary Care Provider] - In 1 week Problem List Clinical Impression: Sepsis, UTI (lower urinary tract infection), Thrombocytopenia, Chest pain, Cirrhosis, Acute kidney injury superimposed on CKD, Hypomagnesemia Patient/Caregiver Discharge Instructions Print Language: Faroese Stand Alone Forms: Lucie Award Info., Patient Portal Info Letter
[2025-01-04 22:58] VITALS: TEMP 38.8
[2025-01-04] MEDS: cefTRIAXone/D5w 1gm IV premix 1 GM/50 ML BAG IV (22:58)
[2025-01-04] MEDS: ACETAMINOPHEN 500 MG TABLET 1000 MG PO (22:58)
--- NOTE | 2025-01-04 22:58 | PD.EDFEVER ---
ED Fever RME/HPI General Chief Complaint: Chest Pain Stated Complaint: FEVER, VOMITING, CHEST PAIN, SOB Time Seen by Provider: 01/04/25 22:57 Source: patient and family Arrival date/time: 01/04/25 22:11 Mode of arrival: ambulatory Limitations: no limitations RME / HPI RME / HPI Narrative: 01/04/25 22:11 54F with history of thrombocytopenia and DM presents to ED with 1 day of CP, SOB, N/V, and fevers/chills. Patient was recently here where she got an LP. This section includes all my notes and documentations, including HPI, PE, and ED course.? David Green MD HPI: ROS: All negative except as documented in HPI. Physical Exam: General:? Alert and oriented.? No acute distress when remaining still.? Eyes:? Conjunctivae and lids clear. ENT:? No nasal congestion.? ? Neck:? Supple. Heart:? RRR. Lungs:? No respiratory distress.? Good air movement.? No rhonchi, wheezing, rales.? Abdomen:? Soft and nontender.? Legs:? No clubbing, cyanosis, edema. Skin:? Warm and dry.? Neuro:? Alert and oriented X 3.? I reviewed all diagnostic test results. My interpretation of the EKG is My interpretation of the chest x-ray is My review of the CT report is Blood tests and urine tests At this point, diagnoses include Treatment here included Significant improvement Not yet done: I discussed the case with our hospitalist. About the presentation and exam and diagnostics and treatments here. And need of further care in the hospital. Will accept the patient. Not yet done: Based on my best medical judgment, made decision no further evaluation or treatment indicated at this time. Patient understands and agrees to the discharge instructions customized and printed, see below. David Green MD Related Data Home Medications ?Medication ?Instructions ?Recorded ?Confirmed liraglutide 0.6 mg/0.1 mL (18 mg/3 1.8 mg subcut QDAY 03/28/18 11/19/23 mL) subcutaneous pen injector (Victoza 3-Jose) insulin glargine 100 unit/mL (3 35 unit subcut BID 09/30/18 11/19/23 mL) subcutaneous pen (Basaglar KwikPen U-100 Insulin) ursodiol 300 mg capsule 300 mg PO TID 09/30/18 11/19/23 hydrocodone 10 mg-acetaminophen 1 tab PO DAILY PRN Pain 01/27/20 11/19/23 325 mg tablet B-complex with vitamin C 1 tab PO QDAY 10/27/23 11/19/23 ascorbic acid (vitamin C) 1,000 mg 1,000 mg PO DAILY 10/27/23 11/19/23 tablet (Vitamin C) atorvastatin 10 mg tablet 10 mg PO HS 10/27/23 11/19/23 cholecalciferol (vitamin D3) 25 25 mcg PO QDAY 10/27/23 11/19/23 mcg (1,000 unit) tablet (Vitamin D3) furosemide 20 mg tablet 20 mg PO DAILY 10/27/23 11/19/23 gabapentin 400 mg capsule 400 mg PO BID 10/27/23 11/19/23 insulin aspart U-100 100 unit/mL 10 unit subcut TIDPC 10/27/23 11/19/23 (3 mL) subcutaneous pen propranolol 10 mg tablet 10 mg PO BID 10/27/23 11/19/23 tizanidine 2 mg capsule 2 mg PO HSPRN PRN Muscle Spasm 10/27/23 11/19/23 Previous Rx's ?Medication ?Instructions ?Recorded zinc sulfate 50 mg zinc (220 mg) 220 mg (4.4 x 50 mg zinc (220 mg)) 09/08/21 capsule PO QDAY #30 caps medroxyprogesterone 10 mg tablet 10 mg PO QDAY 30 days #30 tabs 11/18/23 Allergies Allergy/AdvReac Type Severity Reaction Status Date / Time tramadol Allergy Severe Hives Verified 01/04/25 22:13 Physical Exam General Limitations: no limitations ED Exam General Limitations: Present no limitations Course Orders Category Date Time Status Bedside COVID-19 Antigen Test NOW Care 01/04/25 22:15 Active Bedside Influenza A&B Antigen Test NOW Care 01/04/25 22:15 Active EKG (ED ONLY) *Do not use* NOW Care 01/04/25 22:15 Completed Insert IV NOW Care 01/04/25 22:31 Active EKG (ED Only) Stat Exams 01/04/25 22:15 Draft XR chest 1V portable Stat Exams 01/04/25 22:32 Taken B-Type Natriuretic Peptide Stat Lab 01/04/25 22:31 Ordered Blood Culture (Lab) Stat Lab 01/04/25 22:31 Ordered CBC Stat Lab 01/04/25 22:31 Ordered Comprehensive Metabolic Panel Stat Lab 01/04/25 22:31 Ordered Lactate (Lactic Acid) Stat Lab 01/04/25 22:31 Ordered Lipase Stat Lab 01/04/25 22:31 Ordered Magnesium Stat Lab 01/04/25 22:31 Ordered Procalcitonin Stat Lab 01/04/25 22:31 Ordered Troponin I Stat Lab 01/04/25 22:31 Ordered Urinalysis, C/S if Indicated Stat Lab 01/04/25 22:31 Ordered Acetaminophen Tab [Tylenol ES Tab] Med 01/04/25 22:35 Discontinued 1,000 mg PO X1 ONE Sodium Chloride 0.9% 1000 ml [Ns] 1,000 ml Med 01/04/25 22:31 Active IV 999 mls/hr cefTRIAXone/D5w 1gm IV premix [Rocephin/D5w 1gm IV Med 01/04/25 22:32 Active premix] 1 gm in 50 ml IV X1 Vital Signs Vital signs: Vital Signs Temperature 101.9 F H 01/04/25 22:28 Pulse Rate 102 H 01/04/25 22:28 Respiratory Rate 22 H 01/04/25 22:28 Blood Pressure 179/74 H 01/04/25 22:28 Pulse Oximetry (%) 95 01/04/25 22:28 Oxygen Delivery Method Room Air 01/04/25 22:28 Fever Medications / Prescriptions Medication administrations:: Medication Administration History Sodium Chloride (Ns) 1,000 mls @ 999 mls/hr IV .Q1H1M ONE Stop: 01/04/25 23:31 Ceftriaxone Sodium/Dextrose (Rocephin/D5w 1gm Iv Premix) 1 gm in 50 mls @ 100 mls/hr IV X1 ONE Stop: 01/04/25 23:01 Discontinued Medications Acetaminophen (Acetaminophen 500 Mg Tablet) 1,000 mg PO X1 ONE Stop: 01/04/25 22:36 Discharge Plan Prescriptions/Referrals Prescriptions/Med Rec: No Action hydrocodone-acetaminophen 10-325 mg tablet 1 tab PO DAILY PRN (Reason: Pain) Patient Comments: TAKE ONE TABLET BY MOUTH THREE TIMES DAILY NEEDED FOR PAIN Rx Instructions: 1-2 tabs Victoza 3-Jose 0.6 mg/0.1 mL (18 mg/3 mL) Pen Injector 1.8 mg SUB-Q QDAY ursodiol 300 mg Capsule 300 mg PO TID insulin glargine [Basaglar KwikPen U-100 Insulin] 100 unit/mL (3 mL) Insulin Pen 35 unit SUBCUT BID zinc sulfate 50 mg zinc (220 mg) Capsule 220 mg PO QDAY Qty: 30 0RF gabapentin 400 mg capsule 400 mg PO BID Patient Comments: TAKE ONE CAPSULE BY MOUTH TWICE DAILY FOR NERVE PAIN propranolol 10 mg tablet 10 mg PO BID Patient Comments: TAKE ONE TABLET BY MOUTH TWICE DAILY FOR BLOOD PRESSURE atorvastatin 10 mg tablet 10 mg PO HS Patient Comments: TAKE ONE TABLET BY MOUTH EVERY DAY FOR CHOLESTEROL furosemide 20 mg tablet 20 mg PO DAILY Patient Comments: TAKE ONE TABLET BY MOUTH EVERY MORNING A DIURETIC cholecalciferol (vitamin D3) [Vitamin D3] 25 mcg (1,000 unit) Tablet 25 mcg PO QDAY insulin aspart U-100 100 unit/mL (3 mL) Insulin Pen 10 unit SUBCUT TIDPC Rx Instructions: TID after meals B-complex with vitamin C Tablet 1 tab PO QDAY ascorbic acid (vitamin C) [Vitamin C] 1,000 mg Tablet 1,000 mg PO DAILY tizanidine 2 mg capsule 2 mg PO HSPRN PRN (Reason: Muscle Spasm) Patient Comments: TAKE ONE CAPSULE BY MOUTH TWICE DAILY NEEDED FOR MUSCLE SPASMS Rx Instructions: 1-2 tabs medroxyprogesterone 10 mg tablet 10 mg PO QDAY 30 Days Qty: 30 0RF Patient Comments: TAKE 4 TABLETS BY MOUTH EVERY DAY Rx Instructions: 1 tablet daily Patient/Caregiver Discharge Instructions Print Language: Singaporean
[2025-01-04] MEDS: SODIUM CHLORIDE 0.9% 1000 ML 1,000 ML 999 ML IV (22:59)
[2025-01-04 23:00] VITALS: BP 142/66; PULSE 105; RESP 18; O2SAT 97
[2025-01-04 23:05] LABS: Lactate (Lactic Acid) 2.8 mMol/L (0.4-2.0)
[2025-01-04 23:11] LABS: Basophils % (Auto) 1 % (0-2.5); Eosinophils % (Auto) 2 % (0-10); Hematocrit 31.5 % (36.0-46.0); Hemoglobin 11.1 g/dL (12.0-16.0); Immature Granulocytes % (Auto) 1 % (0-0); Immature Granulocytes Auto 0.01 Thou/mm3 (0.00-0.00); Lymphocytes # (Auto) 0.2 Thou/mm3 (1.0-4.8); Lymphocytes % (Auto) 7 % (10-50); Mean Corpuscular HGB Conc 35.2 g/dl (31.0-37.0); Mean Corpuscular Hemoglobin 31.9 pg (25.0-35.0); Mean Corpuscular Volume 91 fL (80-100); Monocytes # (Auto) 0.1 Thou/mm3 (0.0-0.8); Monocytes % (Auto) 3 % (0-12); Neutrophils # (Auto) 1.9 Thou/mm3 (1.8-7.7); Neutrophils % (Auto) 87 % (37-80); Nucleated Red Blood Cell % 0 /100 WBC (0); RDW Standard Deviation 47.3 fL (36.4-46.3); Red Blood Count 3.48 Miln/mm3 (4.00-5.20)
[2025-01-04] MEDS: KETOROLAC INJ 30 MG/ML VIAL IVP (23:15)
[2025-01-04 23:22] LABS: Platelet Count 22 Thou/mm3 (140-440); White Blood Count 2.1 Thou/mm3 (3.6-11.0)
[2025-01-04 23:38] LABS: B-Type Natriuretic Peptide 178 pg/mL (0-100)
[2025-01-04 23:51] LABS: Alanine Aminotransferase 24 U/L (10-49); Albumin, Serum 3.7 gm/dL (3.5-5.0); Albumin/Globulin Ratio 1.1 (1.2-2.2); Alkaline Phosphatase 81 U/L (46-116); Anion Gap 12 (7-16); Aspartate Amino Transferase 35 U/L (0-34); BUN/Creatinine Ratio 14 Ratio (12-20); Bilirubin,Total 3.1 mg/dL (0.3-1.2); Blood Urea Nitrogen 35 mg/dL (9-23); Calcium 9.7 mg/dL (8.3-10.6); Calcium (Corrected) 9.9 mg/dL (8.5-10.1); Chloride 112 mMol/L (98-107); Creatinine (Component) 2.5 mg/dL (0.6-1.3); Estimated Creatinine Clearance 25.8 mL/min (>60); Free T4 (Free Thyroxine) 1.27 ng/dL (0.89-1.76); Globulin 3.5 gm/dL (2.3-3.5); Glucose 186 mg/dL (74-106); Lipase 225 U/L (12-53); Magnesium 1.5 mg/dL (1.6-2.6); Osmolality,Calculated 299 (275-295); Potassium 3.9 mMol/L (3.4-5.1); Procalcitonin 7.51 ng/ml (0.0-0.49); Sodium 144 mMol/L (136-145); Thyroid Stimulating Hormone 2.75 uIU/mL (0.55-4.78); Total Protein 7.2 gm/dL (5.7-8.2); eGFR 22 See Note
[2025-01-04 23:58] LABS: Troponin I 0.061 ng/mL (0.0-0.045)
[2025-01-05] VITALS (17 sets, daily range): BP systolic 146–180; BP diastolic 58–89; PULSE 80–96; RESP 16–97; TEMP 36.4–38.1; O2SAT 95–98
--- NOTE | 2025-01-05 00:08 | XR_ITS ---
Examination: CT chest, without intravenous contrast. CT abdomen, without intravenous contrast. CT pelvis, without intravenous contrast. 2-D sagittal and coronal reconstructions. 3-D reconstructions. Date and time of exam:January 05, 2025 0203 hrs. Indications: Chest pain shortness of breath fever chills beginning 9.5 hours ago CTDI vol (mgy) 22.5 DLP (MGycm)[id number] Technique: Multiple CT images, 3.0 mm slice thickness, obtained chest, abdomen, pelvis, with the high-resolution 64 slice scanner.. Sagittal and coronal 2-D reconstructions are obtained. 3-D reconstructions Low dose protocols were performed. One or more of the following dose reduction techniques were used; automated exposure control, adjustment of the mA and/or KV according to patient size, use of iterative reconstruction technique. Findings: No thoracic aortic aneurysm dilatation Pulmonary artery segments do not show significant enlargement Mild enlargement cardiac contour No paratracheal tracheobronchial or bronchopulmonary adenopathy 4 mm pulmonary nodule right lower lobe No pneumonia or pulmonary edema Cirrhosis, liver nodular in contour Absent gallbladder Marked splenomegaly Portosystemic collateral vessels medial to the spleen Perigastric varices No pancreatic mass Moderate renal parenchymal scar formation, no hydronephrosis No bowel obstruction Normal appendix No diverticulitis Contracted urinary bladder 24 mm endometrial stripe Moderate osteopenia Impression: Mild enlargement cardiac contour 4 mm pulmonary nodule right lower lobe No pneumonia or pulmonary edema Cirrhosis Marked splenomegaly Perigastric varices No bowel obstruction Normal appendix Recommend pelvic sonography to assess abnormally thickened endometrial stripe
--- NOTE | 2025-01-05 00:09 | XR_ITS ---
Examination: Abdomen sonogram, Limited Date and time of exam: January 05, 2025 0123 hrs. Indications: Epigastric pain beginning 8 hours ago Technique: Real-time bourgeois scale transabdominal sonographic images of the upper abdomen obtained. Findings: Absent gallbladder Common bile duct 0.8 cm no stones Pancreatic head appears prominent 4.1 Liver 15.9 cm probable perigastric varix, slow flow in the portal vein, dilated splenic vein, liver irregular in contour Patent IVC Impression: Cirrhosis Gastroesophageal varices
[2025-01-05 00:12] LABS: Sed Rate (ESR) 8 mm/hr (0-30); Slide Review Platelets confirmed
[2025-01-05 00:20] LABS: C-Reactive Protein < 0.5 mg/dL (0.0-0.9)
[2025-01-05 00:25] LABS: Collection Type, Urine Clean Catch
[2025-01-05] MEDS: Magnesium Sulfate 2 GM Ivpb 2 GM/50 ML BAG IV (00:36)
[2025-01-05 00:55] LABS: Bacteria,Urine 4+; Bilirubin,Urine Negative (Negative); Blood,Urine 3+ (Negative); Color,Urine Yellow (Lt Yel-Yel); Culture Indicated,Urine Contaminated; Glucose, Urine Negative (Negative); Ketones,Urine Negative (Negative); Leukocyte Esterase,Urine Positive (Negative); Nitrite,Urine Negative (Negative); Protein,Urine 2+ (Neg - Trace); RBC,Urine 89 /hpf (0-3); Specific Gravity,Urine 1.018 (1.001-1.035); Squamous Epithelial Cell,Urine 21 /hpf (0-5); WBC,Urine 563 /hpf (0-5)
[2025-01-05 00:56] LABS: Clarity,Urine Turbid (Clear/Hazy)
[2025-01-05 02:03] LABS: Reflex Lactate? Y
[2025-01-05 02:30] LABS: Troponin I 0.061 ng/mL (0.0-0.045)
[2025-01-05 02:55] LABS: Respiratory Syncytial Virus Ag Negative (Negative); Strep A Rapid Negative (Negative)
[2025-01-05] MEDS: MORPHINE SULF INJ 10 MG/ML VIAL 4 MG IVP (03:18)
--- NOTE | 2025-01-05 03:23 | PRELIM_ITS ---
Right upper quadrant abdominal ultrasound with Doppler and wave Doppler spectral analysis. January 05, 2025 0123 hours Clinical history: RUQ tenderness Technique: Grayscale and color flow images of the right upper quadrant are provided. Hepatic and portal veins were also imaged with color flow images. Comparison: None. Findings: The sonography worksheet is not available at the time of this report. The liver demonstrates scars echogenicity. Irregular liver margins. No intrahepatic biliary ductal dilatation. No gallbladder calculus, wall thickening or pericholecystic fluid is demonstrated. The common bile duct is normal in caliber at 11.0 mm. The pancreas is unremarkable to the extent visualized. The portal vein is patent with hepatopetal flow normal wave Doppler spectral analysis. The hepatic artery is patent with normal blood flow and wave Doppler spectral analysis. The inferior vena cava is patent with normal wave Doppler spectral analysis. Probable gastroesophageal varices. Impression: Cirrhosis. The portal vein is patent with hepatopetal flow. Probable gastroesophageal varices. Report Electronically Signed By: Nayan Santoro 01/05/2025 3:22:33 AM [EST]
[2025-01-05 03:26] LABS: Lactic Acid, 3 HR 3.4 mMol/L (0.4-2.0)
--- NOTE | 2025-01-05 03:30 | PRELIM_ITS ---
CT scan of the chest, abdomen and pelvis without intravenous contrast (axial sections with sagittal and coronal reformats) January 05, 2025 at 0203 hours Clinical History: Chest pain and abdominal pain. Comparison: No prior study is available for comparison. Findings: The lungs are clear. There is no pleural effusion or pneumothorax. The aorta is within normal limits for age on this noncontrast study. No evidence of mediastinal mass or lymphadenopathy. There is no pericardial effusion. The pancreas, adrenals and kidneys are unremarkable on this noncontrast study. Irregular liver margins. Status post cholecystectomy. Splenomegaly with anteroposterior diameter of 18.5 cm. No evidence of bowel obstruction. The appendix is within normal limits. The uterus and ovaries are within normal limits. The urinary bladder is unremarkable. There is no free air. Trace of perihepatic ascites. The osseous structures are unremarkable. Coronary arteries calcifications. Endometrial thickening. Large gastroesophageal varices. Impression: 1. Cirrhosis associated with splenomegaly and trace of ascites. 2. Large gastroesophageal varices. 3. Coronary arteries calcifications. If acute myocardial infarction is clinically suspected consider correlation with troponin. 4. Endometrial thickening, consider correlation with pelvic ultrasound. Report Electronically Signed By: Nayan Santoro 01/05/2025 3:29:52 AM [EST]
--- NOTE | 2025-01-05 04:00 | PD.EVENT ---
Documentation for date of: 01/05/25 Event Note Event Note: A 54-year-old female presented to the ER with the chief complaint of fever and chest pain. She reports the onset of fever around 5:00 PM on the day of presentation, with temperatures peaking at 103.1?F and associated chills. She also reports chest pain rated at 7/10 at the time of evaluation, previously 10/10, described as radiating to the back and initially beginning as painful throat discomfort while at a restaurant earlier that afternoon. Associated symptoms include headache and approximately six episodes of vomiting. She denies cough, dyspnea at rest, dysuria, and diarrhea. She also complains of persistent back pain in the region of recent lumbar puncture sites, extending to the mid-scapular area. Due to these symptoms, she came to the ER. 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 Surgical history includes C-sections, multiple I&Ds for necrotizing fasciitis, abscess drainage, and recent hysteroscopy with biopsy. Current medications include Gabapentin, Propranolol, Ursodiol, Ozempic, Basaglar, Atorvastatin, Aspart Insulin, Furosemide, Medroxyprogesterone, Vitamin D, Ferrous Sulfate, Nephron Kathrin, Vitamin C, Zinc, and Colchicine. Social history includes former tobacco use (quit in 2016) and rare alcohol use. She lives with family for easier access to medical appointments and is functionally independent without assistive devices. A liver transplant has been deferred pending weight loss. She is followed by cardiology but has not had an angiogram. She had a lumbar puncture last week for new-onset twitching, and prior MRI brain showed demyelinating disease. In the ER, vital signs recorded as temp 101.9?F, HR 102 bpm, RR 22, BP 179/74 mmHg. Sepsis alert was called. Labs revealed WBC 2.1, Hgb 11.1, Plt 22, Na 144, K 3.9, BUN 35, Cr 2.5(1.9 a week ago), glucose 186, lactic acid 2.8, magnesium 1.5, total bilirubin 3.1, AST 35, ALT 24, troponin 0.061, BNP 178, and procalcitonin 7.51. UA showed turbidity with WBC 563 and RBC 89. CXR showed mild cardiomegaly and vascular congestion. Abdominal US demonstrated cirrhosis with hepatopetal flow and probable gastroesophageal varices. CT revealed cirrhosis with splenomegaly, trace ascites, large gastroesophageal varices, coronary artery calcifications, and endometrial thickening. EKG revealed sinus tachycardia. Despite administration of morphine, chest pain persisted, though headache improved. The patient is going to be admitted for further management. #Sepsis Assessment: Fever (Tmax 103.1?F), HR 102, RR 22, WBC 2.1, Cr 2.5 (baseline 1.9), lactate 2.8, procalcitonin 7.51, immunocompromised (cirrhosis, thrombocytopenia, CKD) ? meets SIRS (3/4). UA positive. Plan: - Broad-spectrum IV antibiotics - Blood/urine culture - Monitor vitals, strict I&Os, lactic acid trending - IV fluids - Monitor for clinical deterioration/septic shock #Chest Pain, r/o ACS Assessment: Pleuritic chest pain radiating to back, improved but persistent post-morphine; sinus tachycardia, normal troponin trend, no ECG ischemia, CXR without acute infiltrate. Coronary arteries calcifications on CT. Plan: - Continue telemetry monitoring - Serial troponins and ECGs - Analgesia with non-NSAID regimen (due to CKD/cirrhosis) - Monitor for progression or new focal deficits - Cardiology consult #Thrombocytopenia (Chronic, secondary to cirrhosis/hypersplenism) Assessment: Plt 22, stable chronic severe thrombocytopenia. Plan: - Platelet transfusion if bleeding, prior to invasive procedures, or <20 - Monitor for signs of spontaneous bleeding - Avoid anticoagulation unless strongly indicated #Chronic Liver Disease - Primary Biliary Cirrhosis Assessment: Decompensated features (ascites, varices), total bili 3.1, history of transplant evaluation, stable LFTs. Plan: - Continue Ursodiol - GI/hepatology outpatient f/u - Monitor LFTs, ammonia, coagulation panel - Sodium restriction, diuretics for ascites if symptomatic - Consider propranolol #Acute on Chronic Kidney Disease Assessment: Baseline Cr 1.9, now 2.5; at risk for JULIUS in sepsis and volume shifts. Plan: - Renal dosing of medications - Monitor daily BMP - Avoid nephrotoxic agents #Obesity (Class II) Assessment: BMI 33.8. Plan: - Reinforce dietary recommendations - Encourage mobilization as tolerated - Outpatient weight management and transplant re-evaluation #Multifactorial Anemia Assessment: Hgb 11.1, chronic condition in setting of CKD, cirrhosis, possible GI losses. Plan: - Monitor CBC daily - Iron supplementation continuation
[2025-01-05] MEDS: ACETAMINOPHEN 325 MG TABLET 650 MG PO (04:41)
[2025-01-05] MEDS: RINGERS LACTATED 1000 ML 1,000 ML 999 ML IV (04:42)
[2025-01-05] MEDS: CEFEPIME INJ 1 GM in SODIUM CHLORIDE 0.9% (Popper) 50 ML IV (04:42)
--- NOTE | 2025-01-05 04:46 | PD.RESHP ---
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 The patient reported that she had a really good day, and towards the evening ate in a restaurant and went home when she started feeling chills. She took her temperature and it was 102.6, followed by 103 degree F. She had few episodes of vomiting, after which she developed chest pain, radiating from epigastric to mid chest, 10 /10 in intensity. She denied any headache, lightheadedness, cough, SOB, abdominal pain, any changes in bowel or bladder habit or leg swelling. In the ED her vitals were significant for temperature 101.9 degree of, HR 102, RR 22 and blood pressure 179/74. Sepsis alert was called. Labs were significant for WBC 2.1, hemoglobin 11.1, platelet 22, sodium 144, potassium 3.9, BUN 35, creatinine 2.5 with previous creatinine 1.9 a week ago, blood sugar 186, lactic acid 2.8, magnesium 1.5, total bilirubin 3.1, AST 35, ALT 24, troponin 0.061, BNP 178 and Pro-Feliberto 7.51. UA revealed turbid urine with WBC 563 and RBC 89. CXR significant for mild cardiomegaly and vascular congestion, abdominal US revealed cirrhosis with hepatopetal flow and possible gastroesophageal varices. CT abdomen revealed cirrhosis with splenomegaly, trace ascites, large gastroesophageal varices, coronary artery calcifications, and endometrial thickening. EKG revealed sinus tachycardia. PMH: As mentioned above SHX: , multiple I&D for necrotizing fasciitis secondary to MRSA infection, recent hysteroscopy with biopsy. Medications: Gabapentin, propranolol, ursodiol, Ozempic, Basaglar, atorvastatin, aspart insulin, furosemide, Medroxyprogesteron, vitamin D, ferrous sulfate, Nephro-Kathrin, vitamin C, zinc, colchicine. Social history: Former smoker quit in 2016, occasional alcohol use, denies any illicit drug use. Allergies: Tramadol gives hives, hydroxyzine gives hives Patient admitted to telemetry unit for further management of sepsis secondary to UTI. Review of Systems Review of Systems Systems Reviewed: All systems reviewed, normal except as documented Exam Vital Signs Temp Pulse Resp BP Pulse Ox O2 Del Method 100.6 F H 95 20 179/67 H 95 Room Air 01/05/25 04:41 01/05/25 03:57 01/05/25 03:57 01/05/25 03:57 01/05/25 03:57 01/05/25 03:57 Narrative Exam General: Morbidly obese female, no acute distress, Alert and Oriented x 3 HEENT: Moist mucous membranes, oropharynx clear Neck: Supple, No masses, No JVD CVS: S1S2 Regular rate and rhythm, No murmurs, rubs or gallops Lungs: Clear to auscultation with no accessory use, no wheeze no rhonchi Abd: Soft, NT/ND, +BS, no organomegaly Ext: No edema, warm and well perfused Skin: No rash Psych: Appropriate mood and affect Results: Labs 01/05/25 04:50 01/05/25 04:50 Labs: Short CBC 01/04/25 Range/Units 22:59 WBC 2.1 L (3.6-11.0) Thou/mm3 Hgb 11.1 L (12.0-16.0) g/dL Hct 31.5 L (36.0-46.0) % Plt Count 22 L* D (140-440) Thou/mm3 BMP 01/04/25 22:57 Sodium 144 Potassium 3.9 Chloride 112 H Carbon Dioxide 20.0 BUN 35 H Creatinine 2.5 H Glucose 186 H Calcium 9.7 Cardiac Enzymes 01/04/25 01/05/25 Range/Units 22:57 01:56 Troponin I 0.061 H* 0.061 H* (0.0-0.045) ng/mL Liver Function 01/04/25 Range/Units 22:57 Total Bilirubin 3.1 H (0.3-1.2) mg/dL AST 35 H (0-34) U/L ALT 24 (10-49) U/L Alkaline Phosphatase 81 (46-116) U/L Albumin 3.7 (3.5-5.0) gm/dL Urine 01/04/25 Range/Units 23:55 Urine Color Yellow (Lt Yel-Yel) Urine Clarity Turbid A (Clear/Hazy) Urine pH 6.0 (5.0-7.0) Ur Specific [place] 1.018 (1.001-1.035) Urine Protein 2+ A (Neg - Trace) Urine Glucose (UA) Negative (Negative) Quality Measures Quality Measures sepsis Current suspected stage: sepsis Possible source: unknown Blood cultures ordered: yes Antibiotic ordered: Yes Medications Home Medications and Allergies Home Medications ?Medication ?Instructions ?Recorded ?Confirmed ?Type liraglutide 0.6 mg/0.1 mL (18 mg/3 1.8 mg subcut QDAY 03/28/18 11/19/23 History mL) subcutaneous pen injector (Victoza 3-Jose) insulin glargine 100 unit/mL (3 35 unit subcut BID 09/30/18 11/19/23 History mL) subcutaneous pen (Basaglar KwikPen U-100 Insulin) ursodiol 300 mg capsule 300 mg PO TID 09/30/18 11/19/23 History hydrocodone 10 mg-acetaminophen 1 tab PO DAILY PRN Pain 01/27/20 11/19/23 History 325 mg tablet B-complex with vitamin C 1 tab PO QDAY 10/27/23 11/19/23 History ascorbic acid (vitamin C) 1,000 mg 1,000 mg PO DAILY 10/27/23 11/19/23 History tablet (Vitamin C) atorvastatin 10 mg tablet 10 mg PO HS 10/27/23 11/19/23 History cholecalciferol (vitamin D3) 25 25 mcg PO QDAY 10/27/23 11/19/23 History mcg (1,000 unit) tablet (Vitamin D3) furosemide 20 mg tablet 20 mg PO DAILY 10/27/23 11/19/23 History gabapentin 400 mg capsule 400 mg PO BID 10/27/23 11/19/23 History insulin aspart U-100 100 unit/mL 10 unit subcut TIDPC 10/27/23 11/19/23 History (3 mL) subcutaneous pen propranolol 10 mg tablet 10 mg PO BID 10/27/23 11/19/23 History tizanidine 2 mg capsule 2 mg PO HSPRN PRN Muscle Spasm 10/27/23 11/19/23 History Allergies Allergy/AdvReac Type Severity Reaction Status Date / Time tramadol Allergy Severe Hives Verified 01/04/25 22:13 Visit Medications Acetaminophen (Acetaminophen 325 Mg Tablet) 650 mg PO Q6H PRN PRN Reason: PAIN SCALE 1-3 (mild Stop: 02/04/25 04:30 Hydrocodone Bitart/Acetaminophen (Hydrocodone/Apap 5/325 Tablet) 1 tab PO Q4HR PRN PRN Reason: PAIN SCALE 4-6 (Moderate Stop: 01/10/25 04:30 Dextrose (Dextrose 50%-Water Inj 50 Ml Syringe) 25 ml IV Q15MIN PRN PRN Reason: BG 50-70 responsive npo pt Stop: 02/04/25 04:13 Dextrose (Dextrose 50%-Water Inj 50 Ml Syringe) 50 ml IV Q15MIN PRN PRN Reason: BG <50 OR BG <70 & pt unresponsive Stop: 02/04/25 04:13 Glucagon (Glucagon Inj 1 Mg Vial) 1 mg IM Q15MIN PRN PRN Reason: BG <70, and no IV access Hydromorphone HCl (Hydromorphone Inj 2 Mg/Ml Vial) 0.5 mg IVP Q4H PRN PRN Reason: PAIN SCALE 7-10 (Severe Stop: 01/10/25 04:30 Lactated Ringer's (Lactated Ringers) 1,000 mls @ 999 mls/hr IV .Q1H1M ONE Stop: 01/05/25 05:02 Last Admin: 01/05/25 04:42 Dose: 999 mls/hr Cefepime HCl 1 gm/ Sodium (Chloride) 50 mls @ 100 mls/hr IV Q12HR SHERYL Stop: 01/12/25 04:11 Cefepime HCl 1 gm/ Sodium (Chloride) 50 mls @ 100 mls/hr IV X1 ONE Stop: 01/05/25 05:14 Last Admin: 01/05/25 04:42 Dose: 100 mls/hr Insulin Glargine (Insulin Glargine (Lantus) 5 Unit/0.05 Ml (Per 5 Units)) 35 unit SC BID SHERYL Stop: 02/04/25 08:59 Insulin Human Lispro (Insulin Lispro (Admelog) 1 Unit/0.01 Ml Unit) 0 unit SC AC SHERYL; Protocol Stop: 02/04/25 07:29 Ondansetron HCl (Ondansetron Inj 2 Mg/Ml Inj 2 Ml) 4 mg IV Q6H PRN; Protocol PRN Reason: NAUSEA OR VOMITING Stop: 02/04/25 04:30 Pantoprazole Sodium (Pantoprazole Inj 40 Mg Vial) 40 mg IVP QDAY SHERYL Stop: 02/04/25 08:59 Discontinued Medications Acetaminophen (Acetaminophen 500 Mg Tablet) 1,000 mg PO X1 ONE Stop: 01/04/25 22:36 Last Admin: 01/04/25 22:58 Dose: 1,000 mg Acetaminophen (Acetaminophen 325 Mg Tablet) 650 mg PO X1 ONE Stop: 01/05/25 04:02 Last Admin: 01/05/25 04:41 Dose: 650 mg Sodium Chloride (Ns) 1,000 mls @ 999 mls/hr IV .Q1H1M ONE Stop: 01/04/25 23:31 Last Infusion: 01/05/25 00:46 Dose: Infused Ceftriaxone Sodium/Dextrose (Rocephin/D5w 1gm Iv Premix) 1 gm in 50 mls @ 100 mls/hr IV X1 ONE Stop: 01/04/25 23:01 Last Infusion: 01/04/25 23:28 Dose: Infused Magnesium Sulfate (Magnesium Sulfate Ivpb) 2 gm in 50 mls @ 25 mls/hr IV X1 ONE Stop: 01/05/25 02:07 Last Infusion: 01/05/25 02:36 Dose: Infused Ketorolac Tromethamine (Ketorolac Inj 30 Mg/Ml Vial) 30 mg IVP X1 ONE Stop: 01/04/25 22:59 Last Admin: 01/04/25 23:15 Dose: 30 mg Morphine Sulfate (Morphine Sulf Inj 10 Mg/Ml Vial) 4 mg IVP X1 ONE Stop: 01/05/25 02:59 Last Admin: 01/05/25 03:18 Dose: 4 mg Assessment & Plan Plan The patient is a 54-year-old female with significant past medical history of severe thrombocytopenia 2/2 cirrhosis and hypersplenism, PBC, recurrent necrotizing fasciitis, obesity, CKD, multiple staph infection requiring I&D's presented to ED with chief complaint of fever and chills associated with nausea and vomiting is admitted to telemetry unit for further management of sepsis secondary to UTI. #Sepsis secondary to UTI #Lactic acidosis Patient met 3/4 SIRS criteria with temperature 101.9, heart rate 102, WBC 2.1 and source of infection as UTI with WBC 563 and RBC 89, leukocyte esterase positive, 4+ urine bacteria, lactic acid 2.8, Pro-Feliberto 7.51 Presented with severe chills, fever, nausea and vomiting. Patient received 2 L of IV bolus fluid in the ED, and 1 g IV ceftriaxone - Started on cefepime 2 g every 12 hourly - Blood and urine culture ordered - Daily a.m. labs for CBC, CMP and electrolytes #Severe thrombocytopenia Patient has history of severe thrombocytopenia secondary to cirrhosis and hypersplenism Platelet level of 22 during presentation, no cassi bleeding assessed - Continue to monitor platelet level and transfuse as needed #NSTEMI, likely type II Presented with chest pain, but most likely associated with severe vomiting EKG revealed sinus tachycardia, no ST or T wave changes, troponin 0.061 - Trend troponin until delta is received #Hypomagnesemia Presented with magnesium of 1.5 - 2 g of magnesium sulfate given - Monitor magnesium level daily, and replete as needed #JULIUS on stage IIIb CKD Likely prerenal in the setting of sepsis Presented with creatinine of 2.5, baseline creatinine 1.9 - Patient received 2 L of IV bolus crystalloid fluid - Avoid nephrotoxic drugs - Renally dose medications - Daily a.m. 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 Presented with total bilirubin of 3.1 - Continue to monitor liver function test daily in the a.m. #Mild anemia Likely multifactorial in the setting 2/2 CKD stage IIIb, with possible GI bleed versus iron deficiency anemia -Continue to monitor H&H daily Health maintenance: Dispo: Patient admitted to telemetry unit for further management of sepsis secondary to UTI Diet: Carb consistent diet DVT prophylaxis: SCDs CODE STATUS: Full code The patient's management plan was discussed with my attending physician MD Chino Radford MD, PGY2 Attending Provider Attestation/Addendum Pt was evaluated and plan formulated together with the housestaff team. I have reviewed the residents note above and agree with most of its content. Please refer to the residents note for additional details.
[2025-01-05 04:56] LABS: Basophils % (Auto) 0 % (0-2.5); Eosinophils % (Auto) 0 % (0-10); Monocytes # (Auto) 0.1 Thou/mm3 (0.0-0.8); Monocytes % (Auto) 4 % (0-12); Nucleated Red Blood Cell % 0 /100 WBC (0)
[2025-01-05 04:58] LABS: Hematocrit 29.3 % (36.0-46.0); Hemoglobin 10.1 g/dL (12.0-16.0); Immature Granulocytes % (Auto) 1 % (0-0); Immature Granulocytes Auto 0.02 Thou/mm3 (0.00-0.00); Lymphocytes # (Auto) 0.2 Thou/mm3 (1.0-4.8); Lymphocytes % (Auto) 6 % (10-50); Mean Corpuscular HGB Conc 34.5 g/dl (31.0-37.0); Mean Corpuscular Volume 93 fL (80-100); Neutrophils # (Auto) 2.7 Thou/mm3 (1.8-7.7); Neutrophils % (Auto) 89 % (37-80); Red Blood Count 3.16 Miln/mm3 (4.00-5.20)
[2025-01-05 05:03] LABS: Platelet Count 18 Thou/mm3 (140-440)
[2025-01-05 05:20] LABS: Alanine Aminotransferase 22 U/L (10-49); Albumin, Serum 3.4 gm/dL (3.5-5.0); Albumin/Globulin Ratio 1.1 (1.2-2.2); Alkaline Phosphatase 72 U/L (46-116); Anion Gap 12 (7-16); Aspartate Amino Transferase 34 U/L (0-34); BUN/Creatinine Ratio 14 Ratio (12-20); Bilirubin,Total 3.5 mg/dL (0.3-1.2); Blood Urea Nitrogen 40 mg/dL (9-23); Calcium (Corrected) 9.5 mg/dL (8.5-10.1); Carbon Dioxide 20.3 mMol/L (20.0-31.0); Cardiac Risk Estimate 2.2 RATIO (3.7-5.6); Chloride 112 mMol/L (98-107); Cholesterol 85 mg/dL (132-200); Creatinine (Component) 2.9 mg/dL (0.6-1.3); Estimated Creatinine Clearance 22.3 mL/min (>60); Globulin 3.1 gm/dL (2.3-3.5); Glucose 177 mg/dL (74-106); HDL Cholesterol 38 mg/dL (40-60); LDL Cholesterol,Calculated 28 mg/dL (0-130); Magnesium 1.6 mg/dL (1.6-2.6); Osmolality,Calculated 300 (275-295); Potassium 5.1 mMol/L (3.4-5.1); Sodium 144 mMol/L (136-145); Thyroid Stimulating Hormone 1.63 uIU/mL (0.55-4.78); Total Protein 6.5 gm/dL (5.7-8.2); Triglycerides 97 mg/dL (30-150); eGFR 19 See Note
[2025-01-05 05:34] LABS: Troponin I 0.055 ng/mL (0.0-0.045)
--- NOTE | 2025-01-05 07:45 | PC.NURSE ---
breakfast tray provided.
[2025-01-05 08:05] LABS: Slide Review Platelets confirmed
--- NOTE | 2025-01-05 08:09 | PC.CC ---
Patient is a 54 year-old female who presents to the hospital for Sepsis. Ebony ASHLEY made [id number] contact with patient. ASW introduced self, role, and reason for visit. Patient appeared alert and oriented to self, location, and situation. Patient was pleasant and engaged in initial assessment. Patient confirmed information on demographics and reports she lives with her sister, Cristin and her son Eduardo. Patient reports that her medical decision maker in the event she is unable to make her own decision is her sister, Cristin Hopper . At home patient ambulates independently and completes her own ADLs. Patient does not require any DME. Patient is seen for primary care at [facility] and uses [facility] for prescription medication. Upon discharge the patient plans to return home. administrative services specialist to follow up with any discharge needs.
[2025-01-05 08:48] LABS: Lactate (Lactic Acid) 3.2 mMol/L (0.4-2.0)
[2025-01-05 09:16] LABS: Troponin I 0.042 ng/mL (0.0-0.045)
[2025-01-05 09:34] LABS: INR 1.5 (0.9-1.3); Prothrombin Time 15.6 Seconds (9.0-12.2)
[2025-01-05 10:09] LABS: Collection Type, Urine Clean Catch
[2025-01-05 10:22] LABS: Bilirubin,Urine Negative (Negative); Blood,Urine 2+ (Negative); Color,Urine Yellow (Lt Yel-Yel); Glucose, Urine Negative (Negative); Hyaline Casts,Urine < 1 /hpf (0-1); Ketones,Urine Negative (Negative); Leukocyte Esterase,Urine Positive (Negative); Nitrite,Urine Negative (Negative); PH,Urine 5.5 (5.0-7.0); Protein,Urine 2+ (Neg - Trace); RBC,Urine 36 /hpf (0-3); Specific Gravity,Urine 1.019 (1.001-1.035); Squamous Epithelial Cell,Urine 5 /hpf (0-5); Urobilinogen,Urine Negative mg/dL (0.0-1.0); WBC,Urine 825 /hpf (0-5)
[2025-01-05 10:30] LABS: Clarity,Urine Cloudy (Clear/Hazy); Culture Indicated,Urine Yes
--- NOTE | 2025-01-05 10:35 | ESCONSULT_ITS ---
<Statement entered by Hadley Aquino MD - 01/06/25 01:10> I have personally seen and examined the patient separately on the above date of service and discussed the plan of care with the resident. I reviewed the resident Dr. Willis Ta consultation progress note and agree with the resident findings and plan in the note above and have also edited the documentation to reflect my findings and plan. A 54-year-old female with a past medical history of morbid obesity, cirrhosis with esophageal varices, severe thrombocytopenia less than 20,000, primary biliary cholangitis, CKD stage III, obstructive sleep apnea, recurrent staph infections and necrotizing fasciitis, now with pancytopenia presented to the emergency department for further evaluation of nausea vomiting, fever and chills which is discomfort. Patient does complain of some chest discomfort a pressure-like sensation mostly in the substernal area and epigastric which she describes 10/10 in intensity started around 5 PM yesterday after eating dinner radiated to the back and lasted for less than 5 minutes. She has been having this intermittent pain on and off and she feels worse on laying down is better with sitting but does not distinguish any pain difference with respiration of note patient does follow with cardiology in [place] and she did have echocardiogram previously and does have some family history of CAD with brothers as well as mother with some stents. Patient also complained of self-reported fever of 102.6 and an L3-and in the emergency room also temperature was elevated to 100 2F. Patient just complained of some epigastric pain also along with a fever and chills denied any kind of other PND or orthopnea or dizziness or syncope or fall or palpitations are leg swelling. She does have some shortness of breath at baseline given her obesity. In the emergency department patient did have an elevated temperature of 102 F, blood pressure elevated 117/74 mmHg, heart rate of 192/min and respirations were 18 to 20/min. Labs showed severe pancytopenia with WBC of 3, platelets of 22,000 and then 18,000, hemoglobin of less than 10, magnesium of 1.5 creatinine of 2.5, patient creatinine is around 1.7, T. bili 3.1, lipase 225, BNP 178, procalcitonin elevated to 7.5. Initial troponin was 0.06 and the repeat troponin decreased to 0.05. Sodium 144, potassium 5.1, BUN 40, glucose 177, lactate 2.7, LFTs normal except for the bilirubin at 3.5 TSH normal at 1.63 Free T1.27,, LDL 28 total cholesterol 85, HDL 38 cholesterol 85 TG 97. EKG showed sinus tachycardia with nonspecific T wave changes unchanged from previous EKGs. Chest x-ray with pulm vascular congestion and cardiomegaly. A CT abdominal pelvis was performed which showed 4 mm pulmonary nodule in right lower lobe, cirrhosis, splenomegaly, perigastric varices, thickened endometrial stripe. US gallbladder showed CBD 0.8 cm without stones, prominent pancreatic head L4 0.1 cm, patent IVC, gastroesophageal varices. PSHx: , multiple I&D for nec fasc 2/2 MRSA infection, recent hysteroscopy with biopsy Medications: Gabapentin, propranolol, ursodiol, Ozempic, Basaglar, atorvastatin, aspart insulin, furosemide, Medroxyprogesteron, vitamin D, ferrous sulfate, Nephro-Kathrin, vitamin C, zinc, colchicine Social history: Smoked 6 to 10 cigarettes/day for 10 years (quit 2015), occasional alcohol use, denies illicit drug use, lives with oldest son and niece for convenience given multiple doctor's appointments Allergies: Tramadol gives hives, hydroxyzine gives hives Assessment and plan: 1. Elevated troponins-NSTEMI type II demand ischemia 2. Atypical chest pain-rule out pericarditis 3. Sepsis secondary to possible UTI 4. Cirrhosis with gastroesophageal varices and thrombocytopenia 5. Pulmonary biliary cholangitis 6. JULIUS on CKD stage IIIb 7. Gastroesophageal varices 8. Pancytopenia including thrombocytopenia 9. Lactic acidosis 10. Chronic anemia 11. Hypomagnesemia 12. Morbid obesity 13. PHUONG on CPAP 14. History of recurrent staph infections and necrotizing fasciitis Patient pain has both atypical and typical features but she gives some history of increased chest pain or chest pressure on lying down but cannot differentiate with inspiration or expiration. Does not appear to be acute coronary syndrome. Troponin is elevated only minimally at 0.06 which could be secondary to supply/demand mismatch and downtrending. Patient does not have any chest pain during my interview today. EKG showed normal sinus rhythm without any acute ST- T changes. Recommend to check echocardiogram to rule out regional wall motion abnormalities and to evaluate LV function RV function as well as diastolic function. No need to trend further troponins and no heparin drip given the severe thrombocytopenia TSH and lipid profile in normal range as noted above. Check A1c. She does have cysts only worsening chest pressure on lying down and improved with sitting but no changes much with respiration and no ST T changes history of pericarditis on the EKG but will check an ESR and CRP with echocardiogram for any kind of pericardial effusion to see if patient has any evidence of pericarditis. Otherwise patient appears to have presented with sepsis secondary to possible UTI as the UA was positive with cloudy urine as well as elevated WBC. Pancytopenia seen. Further management as per primary team regarding the sepsis. Patient also has evidence of cirrhosis with gastroesophageal varices in the severe thrombocytopenia which primary team will continue to workup. Etiology of cirrhosis thought to be primary biliary cholangitis. JULIUS on CKD stage III Hypomagnesemia-1.5-recommend aggressive electrolyte replacement. Management of rest of the medical conditions as per primary team and other consultants. Thank you for the consult and allowing me to participate in the care of the patient. Cardiology will continue to follow. Hadley Aquino M.D. Interventional Cardiology HPI Data of Consult Patient: new to practice Requesting Physician: Yonis Smith MD Admitting Provider: Mika Mccarty MD Attending Provider: Yonis Smith MD Primary Care Provider: Franko Aguilar MD Consult Narrative History of present illness: Sharonda Hopper is a 54-year-old female with a past medical history of primary biliary cholangitis, cirrhosis, severe thrombocytopenia (follows at cancer center), CKD (follows Dr. Neil), sleep apnea, and recurrent staph infections and necrotizing fasciitis who presents with chest discomfort, nausea, vomiting, and fever. After eating dinner with her family, states that around 5 PM she developed 10/10, throbbing chest discomfort in her epigastrium and substernal region that radiated to her back that self resolved within minutes. Subsequently developed nausea, 6 episodes of nonbloody emesis, epistaxis, and had a self-reported fever of 102.6 and 103 ?F. Endorses some shortness of breath but she attributes it to pain. Otherwise, denies palpitations, orthopnea, paroxysmal nocturnal dyspnea, but does have some lower extremity swelling. Of note, patient states she has had episodes of chest discomfort for a while now and due to her family history of coronary artery disease (stents placed in 2 brothers in their 50s and 60s, mother, and questionably in father), she follows with administration physician, Dr. Lima, in [place]. States that she has undergone echocardiogram and does not recall ever being told of any abnormalities, no stress test or angiogram. This is the worst her chest pain has ever gotten and has never had it radiate to the back before. Additionally, patient states that chest discomfort is worse when in laying position and improves when sitting and leaning forward. Subsequently came to ED and found to have BP 179/74, HR 102, temp 101.9 ?F. Labs show pancytopenia (WBC 3, Hgb 10, platelets 18), K 3.9, Mg 1.5, Cr 2.5 (BL 1.5-1.7), T. bili 3.1, BNP 178, lipase 225, Pro-Feliberto 7.5. Troponin 0.06 -> 0.06 -> 0.05. UA contaminated but showed 4+ bacteria, 563 WBC, 89 RBC, LE positive. EKG showed sinus tachycardia, heart rate 101, nonspecific T wave abnormalities but unchanged from prior EKG a week earlier. CXR showed mild vascular congestion and enlarged cardiac contour. CT A/P showed 4 mm pulmonary nodule in RLL, cirrhosis, splenomegaly, perigastric varices, thickened endometrial stripe. US gallbladder showed CBD 0.8 cm without stones, prominent pancreatic head L4 0.1 cm, patent IVC, gastroesophageal varices. PSHx: , multiple I&D for nec fasc 2/2 MRSA infection, recent hysteroscopy with biopsy Medications: Gabapentin, propranolol, ursodiol, Ozempic, Basaglar, atorvastatin, aspart insulin, furosemide, Medroxyprogesteron, vitamin D, ferrous sulfate, Nephro-Kathrin, vitamin C, zinc, colchicine Social history: Smoked 6 to 10 cigarettes/day for 10 years (quit 2016), occasional alcohol use, denies illicit drug use, lives with oldest son and niece for convenience given multiple doctor's appointments Allergies: Tramadol gives hives, hydroxyzine gives hives cc:: cc: Yonis Smith MD Review of Systems Review of Systems Systems Reviewed: All systems reviewed, normal except as documented Exam Vital Signs Temp Pulse Resp BP Pulse Ox O2 Del Method 98.9 F 88 18 165/70 H 96 Room Air 01/05/25 10:18 01/05/25 10:18 01/05/25 10:18 01/05/25 10:18 01/05/25 10:18 01/05/25 10:18 Narrative Exam General: AOx3, pleasant, obese, mild distress from pain, able to speak full sentences, answers questions appropriately HEENT: NC/AT, mucous membranes moist, bilateral sclera anicteric Cardiovascular: S1/S2 auscultated with possible third sound, regular rate and rhythm Pulmonary: clear to auscultation bilaterally, no rales/rhonchi/wheezes Abdominal: tenderness to palpation in epigastrium, obese, soft, non-distended, no rebound/guarding Musculoskeletal: 1+ bilateral lower extremity pitting edema, normal ROM Skin: hirsutism, possible early venous stasis changes, warm and dry, intact, no rashes Neuro: CN II-XII intact, no focal deficits Results Labs 01/05/25 04:50 01/05/25 04:50 Labs: Short CBC 01/04/25 01/05/25 Range/Units 22:59 04:50 WBC 2.1 L 3.0 L D (3.6-11.0) Thou/mm3 Hgb 11.1 L 10.1 L (12.0-16.0) g/dL Hct 31.5 L 29.3 L (36.0-46.0) % Plt Count 22 L* D 18 L* (140-440) Thou/mm3 BMP 01/04/25 01/05/25 22:57 04:50 Sodium 144 144 Potassium 3.9 5.1 D Chloride 112 H 112 H Carbon Dioxide 20.0 20.3 BUN 35 H 40 H Creatinine 2.5 H 2.9 H Glucose 186 H 177 H Calcium 9.7 9.0 Cardiac Enzymes 01/04/25 01/05/25 01/05/25 Range/Units 22:57 01:56 04:50 Troponin I 0.061 H* 0.061 H* 0.055 H* (0.0-0.045) ng/mL 01/05/25 Range/Units 08:40 Troponin I 0.042 (0.0-0.045) ng/mL Liver Function 01/04/25 01/05/25 Range/Units 22:57 04:50 Total Bilirubin 3.1 H 3.5 H (0.3-1.2) mg/dL AST 35 H 34 (0-34) U/L ALT 24 22 (10-49) U/L Alkaline Phosphatase 81 72 (46-116) U/L Albumin 3.7 3.4 L (3.5-5.0) gm/dL Urine 01/04/25 01/05/25 Range/Units 23:55 09:55 Urine Color Yellow Yellow (Lt Yel-Yel) Urine Clarity Turbid A Cloudy A (Clear/Hazy) Urine pH 6.0 5.5 (5.0-7.0) Ur Specific [place] 1.018 1.019 (1.001-1.035) Urine Protein 2+ A 2+ A (Neg - Trace) Urine Glucose (UA) Negative Negative (Negative) Quality Measures Quality Measures sepsis Current suspected stage: ruled out Possible source: unknown Blood cultures ordered: yes Antibiotic ordered: Yes Medications Home Medications and Allergies Home Medications ?Medication ?Instructions ?Recorded ?Confirmed ?Type liraglutide 0.6 mg/0.1 mL (18 mg/3 1.8 mg subcut QDAY 03/28/18 11/19/23 History mL) subcutaneous pen injector (Victoza 3-Jose) insulin glargine 100 unit/mL (3 35 unit subcut BID 11/1701/05/25 History mL) subcutaneous pen (Basaglar KwikPen U-100 Insulin) ursodiol 300 mg capsule 300 mg PO TID 09/30/1801/05 History hydrocodone 10 mg-acetaminophen 1 tab PO DAILY PRN [place] n 01/27/20 01/05/25 History 325 mg tablet B-complex with vitamin C 1 tab PO QDAY 10/27/2301/05 History ascorbic acid (vitamin C) 1,000 mg 1,000 mg PO DAILY 0 10/27/23 01/05/25 History tablet (Vitamin C) atorvastatin 10 mg tablet 10 mg PO HS 10/27/23 5 History cholecalciferol (vitamin D3) 25 25 mcg PO QDAY 4 01/05/25 History mcg (1,000 unit) tablet (Vitamin D3) furosemide 20 mg tablet 20 mg PO DAILY 10/27/23/06/23 History gabapentin 400 mg capsule 400 mg PO BID 10/27/2301/05 History insulin aspart U-100 100 unit/mL 10 unit subcut TIDPC 10/27/23 01/05/25 History (3 mL) subcutaneous pen propranolol 10 mg tablet 10 mg PO BID 10/27/23 History tizanidine 2 mg capsule 2 mg PO HSPRN PRN [place] sm 10/27/23 11/19/23 History diclofenac sodium 1 % topical gel 2 g topical .every 6 hr 01/05/25 01/05/25 History ferrous sulfate 325 mg (65 mg 325 mg PO 2XD 01/05/25 0 01/05/25 History iron) tablet (FeroSul) medroxyprogesterone 10 mg tablet 10 mg PO 3XD 01/05/25 01/05/25 History semaglutide 0.25 mg or 0.5 mg (2 0.5 mg subcut .abdullahi [place] 01/05/25 01/05/25 History mg/3 mL) subcutaneous pen injector (Ozempic) tizanidine 2 mg tablet 2 mg PO QPM 01/05/25 5 History zinc sulfate 50 mg zinc (220 mg) 50 mg PO QDAY 5 01/05/25 History capsule Allergies Allergy/AdvReac Type Severity Reaction Status Date / Time tramadol Allergy Severe Hives Verified 01/04/25 22:13 Visit Medications Acetaminophen (Acetaminophen 325 Mg Tablet) 650 mg PO Q6H PRN PRN Reason: PAIN SCALE 1-3 (mild Stop: 02/04/25 04:30 Hydrocodone Bitart/Acetaminophen (Hydrocodone/Apap 5/325 Tablet) 1 tab PO Q4HR PRN PRN Reason: PAIN SCALE 4-6 (Moderate Stop: 01/10/25 04:30 Dextrose (Dextrose 50%-Water Inj 50 Ml Syringe) 25 ml IV Q15MIN PRN PRN Reason: BG 50-70 responsive npo pt Stop: 02/04/25 04:13 Dextrose (Dextrose 50%-Water Inj 50 Ml Syringe) 50 ml IV Q15MIN PRN PRN Reason: BG <50 OR BG <70 & pt unresponsive Stop: 02/04/25 04:13 Glucagon (Glucagon Inj 1 Mg Vial) 1 mg IM Q15MIN PRN PRN Reason: BG <70, and no IV access Hydromorphone HCl (Hydromorphone Inj 2 Mg/Ml Vial) 0.5 mg IVP Q4H PRN PRN Reason: PAIN SCALE 7-10 (Severe Stop: 01/10/25 04:30 Cefepime HCl 1 gm/ Sodium (Chloride) 50 mls @ 100 mls/hr IV Q12HR [facility] Stop: 01/12/25 20:59 Insulin Glargine (Insulin Glargine (Lantus) 5 Unit/0.05 Ml (Per 5 Units)) 15 unit SC BID [facility] Stop: 02/04/25 08:59 Insulin Human Lispro (Insulin Lispro (Admelog) 1 Unit/0.01 Ml Unit) 0 unit SC AC [facility]; Protocol Stop: 02/04/25 07:29 Last Admin: 01/05/25 07:30 Dose: Not Given Ondansetron HCl (Ondansetron Inj 2 Mg/Ml Inj 2 Ml) 4 mg IV Q6H PRN; Protocol PRN Reason: NAUSEA OR VOMITING Stop: 02/04/25 04:30 Pantoprazole Sodium (Pantoprazole Inj 40 Mg Vial) 40 mg IVP QDAY [facility] Stop: 02/04/25 08:59 Discontinued Medications Acetaminophen (Acetaminophen 500 Mg Tablet) 1,000 mg PO X1 ONE Stop: 01/04/25 22:36 Last Admin: 01/04/25 22:58 Dose: 1,000 mg Acetaminophen (Acetaminophen 325 Mg Tablet) 650 mg PO X1 ONE Stop: 01/05/25 04:02 Last Admin: 01/05/25 04:41 Dose: 650 mg Sodium Chloride (Ns) 1,000 mls @ 999 mls/hr IV .Q1H1M ONE Stop: 01/04/25 23:31 Last Infusion: 01/05/25 00:46 Dose: Infused Ceftriaxone Sodium/Dextrose (Rocephin/D5w 1gm Iv Premix) 1 gm in 50 mls @ 100 mls/hr IV X1 ONE Stop: 01/04/25 23:01 Last Infusion: 01/04/25 23:28 Dose: Infused Magnesium Sulfate (Magnesium Sulfate Ivpb) 2 gm in 50 mls @ 25 mls/hr IV X1 ONE Stop: 01/05/25 02:07 Last Infusion: 01/05/25 02:36 Dose: Infused Lactated Ringer's (Lactated Ringers) 1,000 mls @ 999 mls/hr IV .Q1H1M ONE Stop: 01/05/25 05:02 Last Infusion: 01/05/25 07:53 Dose: Infused Cefepime HCl 1 gm/ Sodium (Chloride) 50 mls @ 100 mls/hr IV X1 ONE Stop: 01/05/25 05:14 Last Infusion: 01/05/25 05:12 Dose: Infused Ketorolac Tromethamine (Ketorolac Inj 30 Mg/Ml Vial) 30 mg IVP X1 ONE Stop: 01/04/25 22:59 Last Admin: 01/04/25 23:15 Dose: 30 mg Morphine Sulfate (Morphine Sulf Inj 10 Mg/Ml Vial) 4 mg IVP X1 ONE Stop: 01/05/25 02:59 Last Admin: 01/05/25 03:18 Dose: 4 mg Assessment & Plan Plan Sharonda Hopper is a 54-year-old female with a past medical history of primary biliary cholangitis, cirrhosis, severe thrombocytopenia (follows at [facility] [place]), CKD (follows Dr. Neil), sleep apnea, and recurrent staph infections and necrotizing fasciitis who presents with chest discomfort, nausea, vomiting, and fever. Cardiology consulted for ACS rule-out given atypical chest discomfort and elevated troponins. #NSTEMI type II, demand ischemia #Hypertensive urgency #Atypical chest pain #Elevated troponins Presents with atypical chest pain that is to the back elevated troponins that peaked at 0.06 and now downtrending. EKG showed sinus tachycardia with nonspecific T wave abnormalities but unchanged from prior EKG approximately 1 week earlier. States that she follows up with Dr. Lima in [place] and has undergone echo without any reported abnormalities, no stress test or angiogram. Elevated troponins likely demand ischemia in setting of hypertensive urgency with max recorded BP of 184/66 as patient does not take any antihypertensives at home and had episode of epistaxis. ? Follow-up cardiac echo ? Poor surgical candidate given cirrhosis and severe thrombocytopenia ? Recommend goal of reducing BP to <160/<100 mmHg without lowering MAP > 25-30% over first several hours #? Pericarditis Additionally, patient states that chest discomfort is worse when in laying position and improves when sitting and leaning forward. ESR and CRP noted to be within normal limits, but will follow-up with echo to further evaluate. ? Follow-up cardiac echo #Sepsis secondary to UTI #Lactic acidosis #Severe thrombocytopenia #Hypomagnesemia #JULIUS on stage IIIb CKD #Cirrhosis 2/2 #Primary biliary cholangitis #Hyperbilirubinemia #Mild anemia ? Management per primary team and other consultants ----- Plan discussed with attending physician Dr. Miles Ta MD PGY-1 Internal Medicine
[2025-01-05] MEDS: HYDROcodone/APAP 5/325 TABLET 1 TAB PO (10:38)
[2025-01-05] MEDS: PANTOPRAZOLE INJ 40 MG VIAL IVP (10:39)
[2025-01-05] MEDS: INSULIN GLARGINE (Lantus) 5 UNIT/0.05 ML (PER 5 UNITS) 15 UNIT SC ×2 (10:39→20:52)
[2025-01-05 11:46] LABS: Reflex Lactate? Y
--- NOTE | 2025-01-05 11:48 | ESPR_ITS ---
Documentation for date of: 01/05/25 Subjective Subjective Interval history: Patient seen and examined at bedside. Patient admitted overnight for sepsis secondary to UTI. Patient denies any symptoms of urinary tract infection, urine analysis was contaminated, patient's likely source of sepsis gastroenteritis. Patient does have a complicated history of PBC and cirrhosis, follows Dr. Wren outpatient, recently had EGD done showed gastric portal varices. Patient was referred to [place] for further management. Patient follows Dr. 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 Patient follows cancer treatment center Dr. 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 Neil for chronic kidney disease Antibiotic therapy will be changed to ciprofloxacin IV, cefepime discontinued Patient will be started on IV maintenance fluid, had elevated lactate, will continue to monitor. Gastroenterology will be consulted considering patient's advanced cirrhosis with significant thrombocytopenia and INR of 1.5. Exam Vital Signs Temp Pulse Resp BP Pulse Ox O2 Del Method 98.9 F 88 18 165/70 H 96 Room Air 01/05/25 10:18 01/05/25 10:18 01/05/25 10:18 01/05/25 10:18 01/05/25 10:18 01/05/25 10:18 Narrative Exam Physical Exam General: Awake and in no acute distress. Conversational and non-toxic appearing. HEENT: Normocephalic, atraumatic, mucous membranes moist. Heart: Regular rate and rhythm, no murmurs. Lungs: Clear to auscultation with no wheezing or crackles. Reduced breath sounds right due to patient's body habitus. Abdomen: Soft, obese nondistended, tender in epigastrium, left upper quadrant, positive bowel sounds. ?No guarding or rebound tenderness. No signs of ascites. Neurologic: Alert and oriented x3, no gross neurological deficit, and patient able to move all 4 extremities. Extremities: Trace bilateral lower extremity edema noted. Skin: No rash or ecchymoses. Objective Labs 01/06/25 04:15 01/06/25 04:15 Labs: Laboratory Results - last 24 hr 01/04/25 01/04/25 01/04/25 22:57 22:59 23:55 WBC 2.1 L RBC 3.48 L Hgb 11.1 L Hct 31.5 L MCV 91 MCH 31.9 MCHC 35.2 RDW Std Deviation 47.3 H Plt Count 22 L* D Neut % (Auto) 87 H Lymph % (Auto) 7 L [place] % (Auto) 3 Eos % (Auto) 2 Baso % (Auto) 1 Neut # (Auto) 1.9 Lymph # (Auto) 0.2 L [place] # (Auto) 0.1 Eos # (Auto) 0.0 Baso # (Auto) 0.0 Immature Gran # (Auto) 0.01 H Absolute Nucleated RBC 0.00 Immature Gran % 1 H Nucleated RBC % 0 ESR 8 PT INR Sodium 144 Potassium 3.9 Chloride 112 H Carbon Dioxide 20.0 Anion Gap 12 BUN 35 H Creatinine 2.5 H Estim Creat Clear Calc 25.8 L eGFR 22 L BUN/Creatinine Ratio 14 Glucose 186 H Calculated Osmolality 299 H Lactic Acid 2.8 H Calcium 9.7 Corrected Calcium 9.9 Magnesium 1.5 L Total Bilirubin 3.1 H AST 35 H ALT 24 Alkaline Phosphatase 81 Troponin I 0.061 H* C-Reactive Prot, Quant < 0.5 B-Natriuretic Peptide 178 H Total Protein 7.2 Albumin 3.7 Globulin 3.5 Albumin/Globulin Ratio 1.1 L Triglycerides Cholesterol LDL Cholesterol, Calc HDL Cholesterol Cholesterol/HDL Ratio Lipase 225 H Procalcitonin 7.51 H TSH 2.75 Free T4 1.27 Ur Collection Type Clean Catch Urine Color Yellow Urine Clarity Turbid A Urine pH 6.0 Ur Specific [place] 1.018 Urine Protein 2+ A Urine Glucose (UA) Negative Urine Ketones Negative Urine Blood 3+ A Urine Nitrite Negative Urine Bilirubin Negative Urine Urobilinogen (Auto) 2.0 Ur Leukocyte Esterase Positive Urine RBC 89 H Urine WBC 563 H Ur Squamous Epith Cells 21 H Urine Bacteria 4+ A Hyaline Casts Ur Culture Indicated? Contaminated RSV Rapid Group A Strep Rapid Misc Test Result Platelets confirmed 01/05/25 01/05/25 01/05/25 01:56 02:01 03:20 WBC RBC Hgb Hct MCV MCH MCHC RDW Std Deviation Plt Count Neut % (Auto) Lymph % (Auto) [place] % (Auto) Eos % (Auto) Baso % (Auto) Neut # (Auto) Lymph # (Auto) [place] # (Auto) Eos # (Auto) Baso # (Auto) Immature Gran # (Auto) Absolute Nucleated RBC Immature Gran % Nucleated RBC % ESR PT INR Sodium Potassium Chloride Carbon Dioxide Anion Gap BUN Creatinine Estim Creat Clear Calc eGFR BUN/Creatinine Ratio Glucose Calculated Osmolality Lactic Acid 3.4 H Calcium Corrected Calcium Magnesium Total Bilirubin AST ALT Alkaline Phosphatase Troponin I 0.061 H* C-Reactive Prot, Quant B-Natriuretic Peptide Total Protein Albumin Globulin Albumin/Globulin Ratio Triglycerides Cholesterol LDL Cholesterol, Calc HDL Cholesterol Cholesterol/HDL Ratio Lipase Procalcitonin TSH Free T4 Ur Collection Type Urine Color Urine Clarity Urine pH Ur Specific [place] Urine Protein Urine Glucose (UA) Urine Ketones Urine Blood Urine Nitrite Urine Bilirubin Urine Urobilinogen (Auto) Ur Leukocyte Esterase Urine RBC Urine WBC Ur Squamous Epith Cells Urine Bacteria Hyaline Casts Ur Culture Indicated? RSV Rapid Negative Group A Strep Rapid Negative Misc Test Result 01/05/25 01/05/25 01/05/25 04:50 08:40 09:55 WBC 3.0 L D RBC 3.16 L Hgb 10.1 L Hct 29.3 L MCV 93 MCH 32.0 MCHC 34.5 RDW Std Deviation 49.0 H Plt Count 18 L* Neut % (Auto) 89 H Lymph % (Auto) 6 L [place] % (Auto) 4 Eos % (Auto) 0 Baso % (Auto) 0 Neut # (Auto) 2.7 Lymph # (Auto) 0.2 L [place] # (Auto) 0.1 Eos # (Auto) 0.0 Baso # (Auto) 0.0 Immature Gran # (Auto) 0.02 H Absolute Nucleated RBC 0.00 Immature Gran % 1 H Nucleated RBC % 0 ESR PT 15.6 H INR 1.5 H Sodium 144 Potassium 5.1 D Chloride 112 H Carbon Dioxide 20.3 Anion Gap 12 BUN 40 H Creatinine 2.9 H Estim Creat Clear Calc 22.3 L eGFR 19 L BUN/Creatinine Ratio 14 Glucose 177 H Calculated Osmolality 300 H Lactic Acid 3.2 H Calcium 9.0 Corrected Calcium 9.5 Magnesium 1.6 Total Bilirubin 3.5 H AST 34 ALT 22 Alkaline Phosphatase 72 Troponin I 0.055 H* 0.042 C-Reactive Prot, Quant B-Natriuretic Peptide Total Protein 6.5 Albumin 3.4 L Globulin 3.1 Albumin/Globulin Ratio 1.1 L Triglycerides 97 Cholesterol 85 L LDL Cholesterol, Calc 28 HDL Cholesterol 38 L Cholesterol/HDL Ratio 2.2 L Lipase Procalcitonin TSH 1.63 Free T4 Ur Collection Type Clean Catch Urine Color Yellow Urine Clarity Cloudy A Urine pH 5.5 Ur Specific [place] 1.019 Urine Protein 2+ A Urine Glucose (UA) Negative Urine Ketones Negative Urine Blood 2+ A Urine Nitrite Negative Urine Bilirubin Negative Urine Urobilinogen (Auto) Negative Ur Leukocyte Esterase Positive Urine RBC 36 H Urine WBC 825 H Ur Squamous Epith Cells 5 Urine Bacteria None Hyaline Casts < 1 Ur Culture Indicated? Yes RSV Rapid Group A Strep Rapid Misc Test Result Platelets confirmed Quality Measures Quality Measures sepsis Current suspected stage: ruled out Possible source: unknown Blood cultures ordered: yes Antibiotic ordered: Yes Assessment & Plan Assessment Current Active Medications: Generic Name Dose Route Start Last Admin Trade Name Freq PRN Reason Stop Dose Admin Acetaminophen 325 mg 01/05/25 10:55 Acetaminophen 325 Mg Tablet PO 02/04/25 04:30 Q6H PRN PAIN SCALE 1-3 (mild Hydrocodone Bitart/Acetaminophen 1 tab 01/05/25 04:31 01/05/25 10:38 Hydrocodone/Apap 5/325 Tablet PO 01/10/25 04:30 1 tab Q4HR PRN Administration PAIN SCALE 4-6 (Moderate Dextrose 25 ml 01/05/25 04:14 Dextrose 50%-Water Inj 50 Ml Syringe IV 02/04/25 04:13 Q15MIN PRN BG 50-70 responsive npo pt Dextrose 50 ml 01/05/25 04:14 Dextrose 50%-Water Inj 50 Ml Syringe IV 02/04/25 04:13 Q15MIN PRN BG <50 OR BG <70 & pt unresponsive Glucagon 1 mg 01/05/25 04:14 Glucagon Inj 1 Mg Vial IM Q15MIN PRN BG <70, and no IV access Hydromorphone HCl 0.5 mg 01/05/25 04:31 Hydromorphone Inj 2 Mg/Ml Vial IVP 01/10/25 04:30 Q4H PRN PAIN SCALE 7-10 (Severe Lactated Ringer's 1,000 mls @ 75 mls/hr 01/05/25 10:52 Lactated Ringers IV 02/04/25 10:51 .[id number] [facility] Ciprofloxacin/Dextrose 400 mg in 200 mls @ 200 mls/hr 01/05/25 10:53 Cipro Ivpb IV 01/12/25 10:52 Q12HR [facility] Insulin Glargine 15 unit 01/05/25 09:00 01/05/25 10:39 Insulin Glargine (Lantus) 5 Unit/0.05 Ml (Per 5 Units) SC 02/04/25 08:59 15 unit BID SHERYL Administration Insulin Human Lispro 0 unit 01/05/25 07:30 01/05/25 07:30 Insulin Lispro (Admelog) 1 Unit/0.01 Ml Unit SC 02/04/25 07:29 Not Given AC SHERYL Protocol Ondansetron HCl 4 mg 01/05/25 04:31 Ondansetron Inj 2 Mg/Ml Inj 2 Ml IV 02/04/25 04:30 Q6H PRN NAUSEA OR VOMITING Protocol Pantoprazole Sodium 40 mg 01/05/25 09:00 01/05/25 10:39 Pantoprazole Inj 40 Mg Vial IVP 02/04/25 08:59 40 mg QDAY SHERYL Administration Plan Assessment and plan: Summary: The patient is a 54-year-old female with significant past medical history of 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 #Sepsis secondary to gastroenteritis #Lactic acidosis #Ruled out urinary tract infection Patient met 4/4 SIRS criteria with temperature 101.9, heart rate 102, respiratory rate 22, WBC 2.1 and source of infection as gastroenteritis, endorgan damage as evidenced by acute kidney injury, lactic acid 2.8, Pro-Feliberto 7.51. qSOFA score 1 Initially urine analysis showed with WBC 563 and RBC 89, leukocyte esterase positive, 4+ urine bacteria, patient's urine had increased squamous cells and she was repeated repeat UA is negative for bacteria. Presented with severe chills, fever, nausea and vomiting. Patient reports eating hamburger before getting symptoms. Patient received 2 L of IV bolus fluid in the ED, and 1 g IV ceftriaxone. Patient was started on cefepime by night team. -Started on IV ciprofloxacin (01/05- -IV maintenance fluids LR -follow-up blood urine culture -Monitor closely. 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 Neil for chronic kidney disease - Patient received 2 L of IV bolus crystalloid fluid - IV maintenance fluids LR - Avoid nephrotoxic drugs - Renally dose medications - Daily a.m. labs for renal panel - Will consider nephrology consult in a.m. 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 Presented with total bilirubin of 3.1 INR 1.5, significant thrombocytopenia, platelet count 18,[address] Wren outpatient, recently had EGD done showed gastric portal varices. Patient was referred to [facility] for further management. Plan: -Resume home dose ursodiol -Resume home dose propranolol -Resume home dose p.o. Lasix -Monitor INR daily -Continue to monitor liver function test daily in the a.m. -GI consulted, appreciate recommendations #Severe thrombocytopenia Patient has history of severe thrombocytopenia secondary to cirrhosis and hypersplenism Follows cancer treatment center Dr. Gresham for thrombocytopenia Platelet level of 22 during presentation, no cassi bleeding assessed - Continue to monitor platelet level and transfuse as needed #NSTEMI, likely type II # Trace bilateral pitting edema Presented with chest pain, but most likely associated with severe vomiting EKG revealed sinus tachycardia, no ST or T wave changes, troponin 0.[address] 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 Reports extensive history of cardiac disease in family Troponin 0.061-> 0.061-> 0.055 Does have trace bilateral pitting edema on examination, there is concern of heart failure. -Follow echocardiogram - Cardiology consulted, appreciate recommendations #Electrolyte abnormalities #Hypomagnesemia - Corrected replace electrolytes as needed #Mild anemia Likely multifactorial in the setting 2/2 CKD stage IIIb, with possible GI bleed versus iron deficiency anemia -Continue to monitor H&H daily #Dysfunctional uterine bleeding #Thickened endometrium Patient complains of on and off vaginal bleeding Does have finding of thickened endometrium on CT scan Patient follows [facility] outpatient, reports scheduled for hysterectomy in future Plan: - Resumed home dose medroxyprogesterone 3 times daily #Gout Patient reports history of gout Plan: Resume home dose colchicine #Chronic pain Resume home dose gabapentin Will hold tizanidine considering patient is on ciprofloxacin Health maintenance: Dispo: Patient admitted to telemetry unit for further management of sepsis secondary to UTI Diet: Carb consistent diet DVT prophylaxis: SCDs CODE STATUS: Full code Case discussed with Attending Dr. Smith. Sonia Lang PGY1 Disclaimer: This note was dictated by speech recognition. Minor errors in architectural technician may be present due to voice recognition software. Attending Provider Attestation/Addendum I reviewed labs, imaging, EKG, home medications and prior available records. Face to face evaluation was performed by me. I have personally examined the patient and discussed assessment and plan with the IM team. I reviewed the resident note and agree with the plan with exceptions as below. Liver cirrhosis Primary biliary cirrhosis Sepsis secondary to acute gastroenteritis versus SBP Pancytopenia Non-STEMI JULIUS on CKD Insulin-dependent diabetes mellitus with hyperglycemia Started the patient on ciprofloxacin Follow-up cultures Trend WBC Monitor platelet level and monitor for bleeding She received gentle IV fluids Monitor kidney function. Avoid nephrotoxins Continue insulin long-acting plus sliding scale insulin and monitor fingersticks Troponin peaked Consulted cardiology given the chest pain and elevated troponin Ordered PT evaluation
[2025-01-05] MEDS: CIPROFLOXACIN/D5w 400 MG IVPB 400 MG/200 ML BAG 200 MG IV ×2 (11:50→20:51)
[2025-01-05] MEDS: RINGERS LACTATED 1000 ML 1,000 ML 75 ML IV (11:50)
[2025-01-05] MEDS: INSULIN LISPRO (AdmeLOG) 1 UNIT/0.01 ML UNIT SC ×2 (12:03→16:49)
[2025-01-05 12:13] LABS: Lactic Acid, 3 HR 2.7 mMol/L (0.4-2.0)
[2025-01-05 12:55] LABS: Mono Screen Negative (Negative)
[2025-01-05] MEDS: HYDROmorphone INJ 2 MG/ML VIAL 0.5 MG IVP ×2 (14:32→20:51)
[2025-01-05] MEDS: LABETALOL INJ 5 MG/ML VIAL 20 ML 10 MG IVP (18:23)
[2025-01-05] MEDS: PROPRANOLOL 10 MG TABLET PO (20:50)
[2025-01-05] MEDS: ursodioL 300 MG CAPSULE PO (20:51)
[2025-01-05] MEDS: MEDRoxyPROGESTERone ACET 2.5 MG TABLET 10 MG PO (20:51)
[2025-01-05] MEDS: COLCHICINE 0.6 MG TABLET PO (20:51)
[2025-01-05] MEDS: GABAPENTIN 100 MG CAPSULE 400 MG PO (20:51)
--- NOTE | 2025-01-05 22:39 | PD.IMCONS ---
HPI Data of Consult Requesting Physician: Yonis Smith MD Primary Care Provider: Franko Aguilar MD Consult Narrative Reason for consult: Chest pain, abnormal CTAP History of present illness: 54-year-old female presented to hospital with nausea vomiting chest pain and a temperature of 102 ?F He was admitted with sepsis secondary to UTI lactic acidosis NSTEMI type II CT scan of the chest abdomen pelvis without contrast showed cirrhosis with marked splenomegaly Gallbladder ultrasound showed absent gallbladder perigastric varices Patient has history of hyperlipidemia and hypertension diabetes mellitus type 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 Her chronic liver disease related to ROSE as well as possible history of primary biliary cirrhosis At 1 point she was on a transplant list taken off because of the marked obesity cc:: cc: Yonis Smith MD Review of Systems Review of Systems Systems Reviewed: All systems reviewed, normal except as documented Past Medical History Surgical History OTHER SURGICAL HX: As in the history of present illness Meds Home Medications and Allergies Home Medications ?Medication ?Instructions ?Recorded ?Confirmed ?Type liraglutide 0.6 mg/0.1 mL (18 mg/3 1.8 mg subcut QDAY 03/28/18 11/19/23 History mL) subcutaneous pen injector (Victoza 3-Jose) insulin glargine 100 unit/mL (3 35 unit subcut BID 09/30/18 01/05/25 History mL) subcutaneous pen (Basaglar KwikPen U-100 Insulin) ursodiol 300 mg capsule 300 mg PO TID 09/30/18 01/05/25 History hydrocodone 10 mg-acetaminophen 1 tab PO DAILY PRN Pain 01/27/20 01/05/25 History 325 mg tablet B-complex with vitamin C 1 tab PO QDAY 10/27/23 01/05/25 History ascorbic acid (vitamin C) 1,000 mg 1,000 mg PO DAILY 10/27/23 01/05/25 History tablet (Vitamin C) atorvastatin 10 mg tablet 10 mg PO HS 10/27/23 01/05/25 History cholecalciferol (vitamin D3) 25 25 mcg PO QDAY 10/27/23 01/05/25 History mcg (1,000 unit) tablet (Vitamin D3) furosemide 20 mg tablet 20 mg PO DAILY 10/27/23 01/05/25 History gabapentin 400 mg capsule 400 mg PO BID 10/27/23 01/05/25 History insulin aspart U-100 100 unit/mL 10 unit subcut TIDPC 10/27/23 01/05/25 History (3 mL) subcutaneous pen propranolol 10 mg tablet 10 mg PO BID 10/27/23 01/05/25 History tizanidine 2 mg capsule 2 mg PO HSPRN PRN Muscle Spasm 10/27/23 11/19/23 History diclofenac sodium 1 % topical gel 2 g topical .every 6 hr 01/05/25 01/05/25 History ferrous sulfate 325 mg (65 mg 325 mg PO 2XD 01/05/25 01/05/25 History iron) tablet (FeroSul) medroxyprogesterone 10 mg tablet 10 mg PO 3XD 01/05/25 01/05/25 History semaglutide 0.25 mg or 0.5 mg (2 0.5 mg subcut .abdullahi week 01/05/25 01/05/25 History mg/3 mL) subcutaneous pen injector (Ozempic) tizanidine 2 mg tablet 2 mg PO QPM 01/05/25 01/05/25 History zinc sulfate 50 mg zinc (220 mg) 50 mg PO QDAY 01/05/25 01/05/25 History capsule Allergies Allergy/AdvReac Type Severity Reaction Status Date / Time tramadol Allergy Severe Hives Verified 01/04/25 22:13 Exam Vital Signs Temp Pulse Resp BP Pulse Ox O2 Del Method 97.5 F 86 16 172/70 H 97 Room Air 01/05/25 20:00 01/05/25 20:50 01/05/25 20:00 01/05/25 20:50 01/05/25 20:00 01/05/25 20:00 Constitutional Comments: Chronically ill-appearing Routine Respiratory Exam Comments: Normal to auscultation Routine Abdominal Exam Comments: Positive for ascites Results Labs 01/05/25 04:50 01/05/25 04:50 Labs: Short CBC 01/04/25 01/05/25 Range/Units 22:59 04:50 WBC 2.1 L 3.0 L D (3.6-11.0) Thou/mm3 Hgb 11.1 L 10.1 L (12.0-16.0) g/dL Hct 31.5 L 29.3 L (36.0-46.0) % Plt Count 22 L* D 18 L* (140-440) Thou/mm3 BMP 01/04/25 01/05/25 22:57 04:50 Sodium 144 144 Potassium 3.9 5.1 D Chloride 112 H 112 H Carbon Dioxide 20.0 20.3 BUN 35 H 40 H Creatinine 2.5 H 2.9 H Glucose 186 H 177 H Calcium 9.7 9.0 Cardiac Enzymes 01/04/25 01/05/25 01/05/25 Range/Units 22:57 01:56 04:50 Troponin I 0.061 H* 0.061 H* 0.055 H* (0.0-0.045) ng/mL 01/05/25 Range/Units 08:40 Troponin I 0.042 (0.0-0.045) ng/mL Liver Function 01/04/25 01/05/25 Range/Units 22:57 04:50 Total Bilirubin 3.1 H 3.5 H (0.3-1.2) mg/dL AST 35 H 34 (0-34) U/L ALT 24 22 (10-49) U/L Alkaline Phosphatase 81 72 (46-116) U/L Albumin 3.7 3.4 L (3.5-5.0) gm/dL Urine 01/04/25 01/05/25 Range/Units 23:55 09:55 Urine Color Yellow Yellow (Lt Yel-Yel) Urine Clarity Turbid A Cloudy A (Clear/Hazy) Urine pH 6.0 5.5 (5.0-7.0) Ur Specific [place] 1.018 1.019 (1.001-1.035) Urine Protein 2+ A 2+ A (Neg - Trace) Urine Glucose (UA) Negative Negative (Negative) Assessment and Plan Additional Assessment & Plan Additional Plan: # Cirrhosis liver ROES versus PBC with splenomegaly ascites and portosystemic collaterals # Chest pain cardiology on board # Sepsis due to UTI # JULIUS on CKD # Essential hypertension # Anasarca Plan Patient can have clear liquid diet N.p.o. tomorrow at 11:00 Consent obtained for fiberoptic esophagogastroduodenoscopy with possible therapeutic intervention under intravenous moderate sedation No biopsies because of the thrombocytopenia on the procedure Will follow the patient Antimitochondrial antibody ordered with the titers Thank you for the opportunity to participate in care of this patient
[2025-01-05] MEDS: DiphenhydrAMINE INJ 50 MG/ML VIAL 12.5 MG IV (23:20)
[2025-01-06] VITALS (16 sets, daily range): BP systolic 134–163; BP diastolic 65–88; PULSE 72–95; RESP 14–96; TEMP 36.2–36.8; O2SAT 92–100; BMI 52.9
[2025-01-06] MEDS: RINGERS LACTATED 1000 ML 1,000 ML 75 ML IV (03:20)
[2025-01-06] MEDS: MEDRoxyPROGESTERone ACET 2.5 MG TABLET 10 MG PO ×3 (05:18→20:34)
[2025-01-06] MEDS: ursodioL 300 MG CAPSULE PO ×3 (05:18→20:33)
[2025-01-06 05:43] LABS: Basophils % (Auto) 0 % (0-2.5); Eosinophils # (Auto) 0.1 Thou/mm3 (0.0-0.5); Eosinophils % (Auto) 2 % (0-10); Hematocrit 27.5 % (36.0-46.0); Hemoglobin 9.5 g/dL (12.0-16.0); Immature Granulocytes % (Auto) 1 % (0-0); Immature Granulocytes Auto 0.02 Thou/mm3 (0.00-0.00); Lymphocytes # (Auto) 0.5 Thou/mm3 (1.0-4.8); Lymphocytes % (Auto) 13 % (10-50); Mean Corpuscular HGB Conc 34.5 g/dl (31.0-37.0); Mean Corpuscular Hemoglobin 32.1 pg (25.0-35.0); Mean Corpuscular Volume 93 fL (80-100); Monocytes # (Auto) 0.4 Thou/mm3 (0.0-0.8); Monocytes % (Auto) 11 % (0-12); Neutrophils # (Auto) 2.8 Thou/mm3 (1.8-7.7); Neutrophils % (Auto) 73 % (37-80); Nucleated Red Blood Cell % 0 /100 WBC (0); RDW Standard Deviation 51.4 fL (36.4-46.3); Red Blood Count 2.96 Miln/mm3 (4.00-5.20); White Blood Count 3.8 Thou/mm3 (3.6-11.0)
[2025-01-06 05:47] LABS: Platelet Count 18 Thou/mm3 (140-440); Slide Review Platelets confirmed
[2025-01-06 05:51] LABS: INR 1.7 (0.9-1.3); Prothrombin Time 18.2 Seconds (9.0-12.2)
[2025-01-06 06:27] LABS: Alanine Aminotransferase 22 U/L (10-49); Albumin, Serum 3.2 gm/dL (3.5-5.0); Albumin/Globulin Ratio 1.1 (1.2-2.2); Alkaline Phosphatase 59 U/L (46-116); Anion Gap 10 (7-16); Aspartate Amino Transferase 38 U/L (0-34); BUN/Creatinine Ratio 18 Ratio (12-20); Bilirubin,Total 2.5 mg/dL (0.3-1.2); Blood Urea Nitrogen 53 mg/dL (9-23); Calcium 8.7 mg/dL (8.3-10.6); Calcium (Corrected) 9.3 mg/dL (8.5-10.1); Carbon Dioxide 21.3 mMol/L (20.0-31.0); Chloride 110 mMol/L (98-107); Creatinine (Component) 2.9 mg/dL (0.6-1.3); Estimated Creatinine Clearance 28.9 mL/min (>60); Globulin 2.9 gm/dL (2.3-3.5); Glucose 176 mg/dL (74-106); Osmolality,Calculated 299 (275-295); Phosphorous 4.1 mg/dL (2.4-5.1); Potassium 4.9 mMol/L (3.4-5.1); Sodium 141 mMol/L (136-145); Total Protein 6.1 gm/dL (5.7-8.2); eGFR 19 See Note
[2025-01-06] MEDS: INSULIN LISPRO (AdmeLOG) 1 UNIT/0.01 ML UNIT SC (07:38)
[2025-01-06] MEDS: HYDROcodone/APAP 5/325 TABLET 1 TAB PO (07:39)
[2025-01-06] MEDS: PANTOPRAZOLE INJ 40 MG VIAL IVP (09:43)
[2025-01-06] MEDS: PROPRANOLOL 10 MG TABLET PO ×2 (09:43→20:33)
[2025-01-06] MEDS: COLCHICINE 0.6 MG TABLET PO (09:43)
[2025-01-06] MEDS: GABAPENTIN 100 MG CAPSULE 400 MG PO (09:44)
[2025-01-06] MEDS: Furosemide 20 MG TABLET PO (09:44)
--- NOTE | 2025-01-06 10:05 | ECHO_ITS ---
Transthoracic Echo Report Ht (in): 62 Wt (lb): 289 Exam Location: [facility] Status: Inpatient Spinning Operator: DANIEL Mejia^^^^ Indications: Procedure Performed: BP: 137 / 81 HR: 81 Technical Quality: Fair MEASUREMENTS (Male / Female) Normal Values 2D ECHO LV Diastolic Diameter PLAX 5.0 cm 4.2 - 5.9 / 3.9 - 5.3 cm LV Systolic Diameter PLAX 3.3 cm IVS Diastolic Thickness 1.1 cm 0.6 - 1.0 / 0.6 - 0.9 cm LVPW Diastolic Thickness 1.3 cm 0.6 - 1.0 / 0.6 - 0.9 cm LV Relative Wall Thickness 0.5 LVOT Diameter 1.6 cm Aortic Root Diameter 3.2 cm LA Systolic Diameter LX 3.8 cm 3.0 - 4.0 / 2.7 - 3.8 cm LV Ejection Fraction MOD 4C 68.5 % LV Cardiac Index MOD 4C 3825.0 cm?/min?m? LV Ejection Fraction 4C AL 70.1 % LV Cardiac Index 4C AL 4212.3 cm?/min?m? LA Volume Index 43.6 cm?/m? 16 - 28 cm?/m? DOPPLER AV Peak Velocity 240.0 cm/s AV Peak Gradient 23.0 mmHg AV Mean Gradient 14.0 mmHg AV Velocity Time Integral 56.3 cm LVOT Peak Velocity 129.0 cm/s LVOT Peak Gradient 6.7 mmHg LVOT Velocity Time Integral 39.9 cm LVOT Cardiac Index 2618.2 cm?/min?m? AV Area Cont Eq vti 1.4 cm? AV Area Cont Eq pk 1.1 cm? MV Area PHT 4.5 cm? MR Peak Velocity 573.0 cm/s MR Peak Gradient 131.3 mmHg Mitral E Point Velocity 121.0 cm/s Mitral A Point Velocity 134.0 cm/s Mitral E to A Ratio 0.9 TR Peak Velocity 338.8 cm/s TR Peak Gradient 45.9 mmHg PV Peak Velocity 125.0 cm/s PV Peak Gradient 6.3 mmHg RVOT Peak Velocity 69.5 cm/s FINDINGS Left Ventricle Normal left ventricular size, wall thickness, systolic function with no obvious regional wall motion abnormalities. There is grade II diastolic dysfunction of the left ventricle (pseudonormal filling pattern).the left ventricular ejection fraction is normal, estimated at 55-60%. Right Ventricle The right ventricle is normal in size and systolic function. The estimated right ventricular systolic pressure, 48 mmHg. Left Atrium Mildly increased left atrial volume 43.6 mL/m?. Right Atrium The right atrium is normal by two-dimensional imaging, color flow and Doppler imaging with no structural abnormalities, no thrombus formation present. Atrial Septum The interatrial septum appears normal with no evidence of a shunt. Aorta The aorta is normal by two-dimensional, color flow and Doppler interrogation. Mitral Valve Mild mitral annular calcification. Mild mitral regurgitation. Aortic Valve Mild aortic valve stenosis, mean gradient 14 mmHg, GREG 1.4 cm?. Tricuspid Valve There is mild to moderate tricuspid valve regurgitation. Pulmonic Valve The pulmonic valve is not well visualized. There is no significant pulmonic valve regurgitation. Vessels The pulmonary artery appears normal. The inferior vena cava pulmonary and hepatic veins appear normal. Pericardium The pericardium is normal by two-dimensional imaging. There is no significant pericardial effusion. CONCLUSIONS Indication: Elevated troponins Normal LV size and function with an LVEF of 55 to 60%. Diastolic dysfunction Stage I Normal RV size and function with moderately elevated RVSP at 45 and 50 mmHg. Mild aortic stenosis with a V-max of 2.6 m/s and mean PG of 30 mmHg. Moderate TR, mild to moderate MR, mild MAC Hadley Aquino (Electronically Signed) Final Date: 06 January 2025 19:56
--- NOTE | 2025-01-06 10:11 | PD.RESPRO ---
Documentation for date of: 01/06/25 Subjective Subjective Interval history: Patient seen and examined at bedside labs and vitals reviewed. Patient's INR around the range 1.5?1.7, bilirubin trended down to 2.5, platelet count stable at 18,000. Patient's renal function did not improve with IV fluids, will consult nephrology today Patient's blood culture positive for GNR, will start on cefepime renally dosed. Patient's lactate did trend down yesterday Patient on clear liquid diet currently scheduled for EGD later today with gastroenterology Will continue to monitor closely, pending echocardiogram as well. Exam Vital Signs Temp Pulse Resp BP Pulse Ox O2 Del Method 97.6 F 82 14 153/79 H 99 Room Air 01/06/25 08:00 01/06/25 09:44 01/06/25 08:00 01/06/25 09:44 01/06/25 08:00 01/06/25 08:00 Narrative Exam Physical Exam General: Awake and in no acute distress. Conversational and non-toxic appearing. HEENT: Normocephalic, atraumatic, mucous membranes moist. Heart: Regular rate and rhythm, no murmurs. Lungs: Clear to auscultation with no wheezing or crackles. Reduced breath sounds right due to patient's body habitus. Abdomen: Soft, obese nondistended, tender in epigastrium, left upper quadrant, positive bowel sounds. ?No guarding or rebound tenderness. No signs of ascites. Neurologic: Alert and oriented x3, no gross neurological deficit, and patient able to move all 4 extremities. Extremities: Trace bilateral lower extremity edema noted. Skin: No rash or ecchymoses. Objective Labs 01/06/25 04:15 01/06/25 04:15 Labs: Laboratory Results - last 24 hr 01/04/25 01/05/25 01/05/25 22:57 09:55 12:10 WBC RBC Hgb Hct MCV MCH MCHC RDW Std Deviation Plt Count Neut % (Auto) Lymph % (Auto) [place] % (Auto) Eos % (Auto) Baso % (Auto) Neut # (Auto) Lymph # (Auto) [place] # (Auto) Eos # (Auto) Baso # (Auto) Immature Gran # (Auto) Absolute Nucleated RBC Immature Gran % Nucleated RBC % PT INR Sodium Potassium Chloride Carbon Dioxide Anion Gap BUN Creatinine Estim Creat Clear Calc eGFR BUN/Creatinine Ratio Glucose Calculated Osmolality Lactic Acid 2.7 H Calcium Corrected Calcium Phosphorus Magnesium Total Bilirubin AST ALT Alkaline Phosphatase Total Protein Albumin Globulin Albumin/Globulin Ratio Ur Collection Type Clean Catch Urine Color Yellow Urine Clarity Cloudy A Urine pH 5.5 Ur Specific [place] 1.019 Urine Protein 2+ A Urine Glucose (UA) Negative Urine Ketones Negative Urine Blood 2+ A Urine Nitrite Negative Urine Bilirubin Negative Urine Urobilinogen (Auto) Negative Ur Leukocyte Esterase Positive Urine RBC 36 H Urine WBC 825 H Ur Squamous Epith Cells 5 Urine Bacteria None Hyaline Casts < 1 Ur Culture Indicated? Yes Monoscreen Negative Misc Test Result 01/06/25 04:15 WBC 3.8 RBC 2.96 L Hgb 9.5 L Hct 27.5 L MCV 93 MCH 32.1 MCHC 34.5 RDW Std Deviation 51.4 H Plt Count 18 L* Neut % (Auto) 73 Lymph % (Auto) 13 [place] % (Auto) 11 Eos % (Auto) 2 Baso % (Auto) 0 Neut # (Auto) 2.8 Lymph # (Auto) 0.5 L [place] # (Auto) 0.4 Eos # (Auto) 0.1 Baso # (Auto) 0.0 Immature Gran # (Auto) 0.02 H Absolute Nucleated RBC 0.00 Immature Gran % 1 H Nucleated RBC % 0 PT 18.2 H INR 1.7 H Sodium 141 Potassium 4.9 Chloride 110 H Carbon Dioxide 21.3 Anion Gap 10 BUN 53 H Creatinine 2.9 H Estim Creat Clear Calc 28.9 L eGFR 19 L BUN/Creatinine Ratio 18 Glucose 176 H Calculated Osmolality 299 H Lactic Acid Calcium 8.7 Corrected Calcium 9.3 Phosphorus 4.1 Magnesium 2.0 Total Bilirubin 2.5 H D AST 38 H ALT 22 Alkaline Phosphatase 59 Total Protein 6.1 Albumin 3.2 L Globulin 2.9 Albumin/Globulin Ratio 1.1 L Ur Collection Type Urine Color Urine Clarity Urine pH Ur Specific [place] Urine Protein Urine Glucose (UA) Urine Ketones Urine Blood Urine Nitrite Urine Bilirubin Urine Urobilinogen (Auto) Ur Leukocyte Esterase Urine RBC Urine WBC Ur Squamous Epith Cells Urine Bacteria Hyaline Casts Ur Culture Indicated? Monoscreen Misc Test Result Platelets confirmed Quality Measures Quality Measures sepsis Current suspected stage: ruled out Possible source: unknown Blood cultures ordered: yes Antibiotic ordered: Yes Assessment & Plan Assessment Current Active Medications: Generic Name Dose Route Start Last Admin Trade Name Jimmieq PRN Reason Stop Dose Admin Acetaminophen 325 mg 01/05/25 10:55 Acetaminophen 325 Mg Tablet PO 02/04/25 04:30 Q6H PRN PAIN SCALE 1-3 (mild Hydrocodone Bitart/Acetaminophen 1 tab 01/05/25 04:31 01/06/25 07:39 Hydrocodone/Apap 5/325 Tablet PO 01/10/25 04:30 1 tab Q4HR PRN Administration PAIN SCALE 4-6 (Moderate Colchicine 0.6 mg 01/06/25 09:30 01/06/25 09:43 Colchicine 0.6 Mg Tablet PO 02/04/25 20:59 0.6 mg DAILY SHERYL Administration Dextrose 25 ml 01/05/25 04:14 Dextrose 50%-Water Inj 50 Ml Syringe IV 02/04/25 04:13 Q15MIN PRN BG 50-70 responsive npo pt Dextrose 50 ml 01/05/25 04:14 Dextrose 50%-Water Inj 50 Ml Syringe IV 02/04/25 04:13 Q15MIN PRN BG <50 OR BG <70 & pt unresponsive Furosemide 20 mg 01/06/25 09:00 01/06/25 09:44 Furosemide 20 Mg Tablet PO 02/05/25 08:59 20 mg DAILY SHERYL Administration Gabapentin 400 mg 01/05/25 21:00 01/06/25 09:44 Gabapentin 100 Mg Capsule PO 02/04/25 20:59 400 mg BID SHERYL Administration Glucagon 1 mg 01/05/25 04:14 Glucagon Inj 1 Mg Vial IM Q15MIN PRN BG <70, and no IV access Hydromorphone HCl 0.5 mg 01/05/25 04:31 01/05/25 20:51 Hydromorphone Inj 2 Mg/Ml Vial IVP 01/10/25 04:30 0.5 mg Q4H PRN Administration PAIN SCALE 7-10 (Severe Cefepime HCl 2 gm/ Sodium 50 mls @ 100 mls/hr 01/06/25 10:15 Chloride IV 01/13/25 10:14 DAILY [facility] Insulin Glargine 15 unit 01/05/25 09:00 01/06/25 09:44 Insulin Glargine (Lantus) 5 Unit/0.05 Ml (Per 5 Units) SC 02/04/25 08:59 Not Given BID [facility] Insulin Human Lispro 0 unit 01/05/25 07:30 01/06/25 07:38 Insulin Lispro (Admelog) 1 Unit/0.01 Ml Unit SC 02/04/25 07:29 2 unit AC SHERYL Administration Protocol Medroxyprogesterone Acetate 10 mg 01/05/25 22:00 01/06/25 05:18 Medroxyprogesterone Acet 2.5 Mg Tablet PO 02/04/25 21:59 10 mg TID SHERYL Administration Ondansetron HCl 4 mg 01/05/25 04:31 Ondansetron Inj 2 Mg/Ml Inj 2 Ml IV 02/04/25 04:30 Q6H PRN NAUSEA OR VOMITING Protocol Pantoprazole Sodium 40 mg 01/05/25 09:00 01/06/25 09:43 Pantoprazole Inj 40 Mg Vial IVP 02/04/25 08:59 40 mg QDAY SHERYL Administration Propranolol HCl 10 mg 01/05/25 21:00 01/06/25 09:43 Propranolol 10 Mg Tablet PO 02/04/25 20:59 10 mg BID SHERYL Administration Ursodiol 300 mg 01/05/25 22:00 01/06/25 05:18 Ursodiol 300 Mg Capsule PO 02/04/25 21:59 300 mg TID SHERYL Administration Plan Assessment and plan: Summary: The patient is a 54-year-old female with significant past medical history of 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 #Sepsis secondary to gastroenteritis #GNR bacteremia #Lactic acidosis #Ruled out urinary tract infection Patient met 4/4 SIRS criteria with temperature 101.9, heart rate 102, respiratory rate 22, WBC 2.1 and source of infection as gastroenteritis, endorgan damage as evidenced by acute kidney injury, lactic acid 2.8, Pro-Feliberto 7.51. qSOFA score 1 Initially urine analysis showed with WBC 563 and RBC 89, leukocyte esterase positive, 4+ urine bacteria, patient's urine had increased squamous cells and she was repeated repeat UA is negative for bacteria. Presented with severe chills, fever, nausea and vomiting. Patient reports eating hamburger before getting symptoms. Patient received 2 L of IV bolus fluid in the ED, and 1 g IV ceftriaxone. Patient was started on cefepime by night team. Patient had mild allergic reaction to ciprofloxacin, had itching was given hydroxyzine overnight, considering blood culture positive for GNR -Started on IV cefepime (01/06- -follow-up blood urine culture -Monitor closely. #JULIUS on stage IIIb CKD Likely prerenal in the setting of sepsis Presented with creatinine of 2.5, baseline creatinine 1.[address] instructor [address] Neil for chronic kidney disease Patient received 2 L of IV bolus crystalloid fluid got IV maintenance fluids LR overnight Plan: -Consulted nephrology, appreciate recommendations - Avoid nephrotoxic drugs - Renally dose medications - Daily a.m. labs for renal panel - Will hold Lasix per nephrology recs. 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 Presented with total bilirubin of 3.1 INR 1.5, significant thrombocytopenia, platelet count 18,[address] Wren outpatient, recently had EGD done showed gastric portal varices. Patient was referred to [facility] for further management. Plan: -Resume home dose ursodiol -Resume home dose propranolol -Hold home dose p.o. Lasix per nephrology recommendations -Monitor INR daily -Continue to monitor liver function test daily in the a.m. -GI consulted, appreciate recommendations #Severe thrombocytopenia Patient has history of severe thrombocytopenia secondary to cirrhosis and hypersplenism Follows cancer treatment center Dr. G[place]am for thrombocytopenia Platelet level of 22 during presentation, no cassi bleeding assessed - Continue to monitor platelet level and transfuse as needed #NSTEMI, likely type II # Trace bilateral pitting edema Presented with chest pain, but most likely associated with severe vomiting EKG revealed sinus tachycardia, no ST or T wave changes, troponin 0.[address] Lima, patient [facility] liaison at [facility], reports having echocardiogram done, no stress test done outpatient. Reports extensive history of cardiac disease in family Troponin 0.061-> 0.061-> 0.055 Does have trace bilateral pitting edema on examination, there is concern of heart failure. -Follow echocardiogram - Cardiology consulted, appreciate recommendations #Electrolyte abnormalities #Hypomagnesemia - Corrected replace electrolytes as needed #Mild anemia Likely multifactorial in the setting 2/2 CKD stage IIIb, with possible GI bleed versus iron deficiency anemia -Continue to monitor H&H daily #Dysfunctional uterine bleeding #Thickened endometrium Patient complains of on and off vaginal bleeding Does have finding of thickened endometrium on CT scan Patient follows [facility] outpatient, reports scheduled for hysterectomy in future Plan: - Resumed home dose medroxyprogesterone 3 times daily #Gout Patient reports history of gout Plan: Resume home dose colchicine #Chronic pain Resume home dose gabapentin Will hold tizanidine considering patient is on ciprofloxacin Health maintenance: Dispo: Patient admitted to telemetry unit for further management of sepsis secondary to UTI Diet: Carb consistent diet DVT prophylaxis: SCDs CODE STATUS: Full code Case discussed with Attending Dr. Smith. Sonia Lang PGY1 Disclaimer: This note was dictated by speech recognition. Minor errors in public health outreach worker may be present due to voice recognition software.
--- NOTE | 2025-01-06 10:18 | PD.RESPRO ---
Documentation for date of: 01/06/25 Subjective Subjective Interval history: No acute overnight events reported. Seen and examined at bedside and patient just had echo done. States that she continues to have epigastric and chest discomfort that improves from 10/10 to 7/10 with Dilaudid. Also states that she takes [place] 10 at home. Endorses that she feels short of breath when laying on her back and improves when laying on her side or sitting up. Also endorsed nausea but no vomiting, blood in urine, and aches under her ears/near angle of mandible bilaterally. Currently plans are to to undergo EGD. Vital signs stable, telemetry reviewed and heart rate in 80s and normal sinus rhythm. CBC significant for platelet count of 18, hemoglobin 9.5. CHEM panel showed K 4.9, Mg 2.0, improvement in T. bili from 3.5 to 2.5, creatinine 2.9. Exam Vital Signs Temp Pulse Resp BP Pulse Ox O2 Del Method 97.6 F 82 14 153/79 H 99 Room Air 01/06/25 08:00 01/06/25 09:44 01/06/25 08:00 01/06/25 09:44 01/06/25 08:00 01/06/25 08:00 Narrative Exam General: AOx3, pleasant, obese, mild distress from pain, able to speak full sentences, answers questions appropriately HEENT: NC/AT, mucous membranes moist, bilateral sclera anicteric Cardiovascular: S1/S2 auscultated with possible third sound, regular rate and rhythm Pulmonary: clear to auscultation bilaterally, no rales/rhonchi/wheezes Abdominal: tenderness to palpation in epigastrium, obese, soft, non-distended, no rebound/guarding Musculoskeletal: 1+ bilateral lower extremity pitting edema, normal ROM Skin: hirsutism, possible early venous stasis changes, warm and dry, intact, no rashes Neuro: CN II-XII intact, no focal deficits Objective Labs 01/06/25 04:15 01/06/25 04:15 Labs: Laboratory Results - last 24 hr 01/04/25 01/05/25 01/05/25 22:57 09:55 12:10 WBC RBC Hgb Hct MCV MCH MCHC RDW Std Deviation Plt Count Neut % (Auto) Lymph % (Auto) [place] % (Auto) Eos % (Auto) Baso % (Auto) Neut # (Auto) Lymph # (Auto) [place] # (Auto) Eos # (Auto) Baso # (Auto) Immature Gran # (Auto) Absolute Nucleated RBC Immature Gran % Nucleated RBC % PT INR Sodium Potassium Chloride Carbon Dioxide Anion Gap BUN Creatinine Estim Creat Clear Calc eGFR BUN/Creatinine Ratio Glucose Calculated Osmolality Lactic Acid 2.7 H Calcium Corrected Calcium Phosphorus Magnesium Total Bilirubin AST ALT Alkaline Phosphatase Total Protein Albumin Globulin Albumin/Globulin Ratio Ur Collection Type Clean Catch Urine Color Yellow Urine Clarity Cloudy A Urine pH 5.5 Ur Specific [place] 1.019 Urine Protein 2+ A Urine Glucose (UA) Negative Urine Ketones Negative Urine Blood 2+ A Urine Nitrite Negative Urine Bilirubin Negative Urine Urobilinogen (Auto) Negative Ur Leukocyte Esterase Positive Urine RBC 36 H Urine WBC 825 H Ur Squamous Epith Cells 5 Urine Bacteria None Hyaline Casts < 1 Ur Culture Indicated? Yes Monoscreen Negative Misc Test Result 01/06/25 04:15 WBC 3.8 RBC 2.96 L Hgb 9.5 L Hct 27.5 L MCV 93 MCH 32.1 MCHC 34.5 RDW Std Deviation 51.4 H Plt Count 18 L* Neut % (Auto) 73 Lymph % (Auto) 13 [place] % (Auto) 11 Eos % (Auto) 2 Baso % (Auto) 0 Neut # (Auto) 2.8 Lymph # (Auto) 0.5 L [place] # (Auto) 0.4 Eos # (Auto) 0.1 Baso # (Auto) 0.0 Immature Gran # (Auto) 0.02 H Absolute Nucleated RBC 0.00 Immature Gran % 1 H Nucleated RBC % 0 PT 18.2 H INR 1.7 H Sodium 141 Potassium 4.9 Chloride 110 H Carbon Dioxide 21.3 Anion Gap 10 BUN 53 H Creatinine 2.9 H Estim Creat Clear Calc 28.9 L eGFR 19 L BUN/Creatinine Ratio 18 Glucose 176 H Calculated Osmolality 299 H Lactic Acid Calcium 8.7 Corrected Calcium 9.3 Phosphorus 4.1 Magnesium 2.0 Total Bilirubin 2.5 H D AST 38 H ALT 22 Alkaline Phosphatase 59 Total Protein 6.1 Albumin 3.2 L Globulin 2.9 Albumin/Globulin Ratio 1.1 L Ur Collection Type Urine Color Urine Clarity Urine pH Ur Specific [place] Urine Protein Urine Glucose (UA) Urine Ketones Urine Blood Urine Nitrite Urine Bilirubin Urine Urobilinogen (Auto) Ur Leukocyte Esterase Urine RBC Urine WBC Ur Squamous Epith Cells Urine Bacteria Hyaline Casts Ur Culture Indicated? Monoscreen Misc Test Result Platelets confirmed Quality Measures Quality Measures sepsis Current suspected stage: ruled out Possible source: unknown Blood cultures ordered: yes Antibiotic ordered: Yes Assessment & Plan Assessment Current Active Medications: Generic Name Dose Route Start Last Admin Trade Name Freq PRN Reason Stop Dose Admin Acetaminophen 325 mg 01/05/25 10:55 Acetaminophen 325 Mg Tablet PO 02/04/25 04:30 Q6H PRN PAIN SCALE 1-3 (mild Hydrocodone Bitart/Acetaminophen 1 tab 01/05/25 04:31 01/06/25 07:39 Hydrocodone/Apap 5/325 Tablet PO 01/10/25 04:30 1 tab Q4HR PRN Administration PAIN SCALE 4-6 (Moderate Colchicine 0.6 mg 01/06/25 09:30 01/06/25 09:43 Colchicine 0.6 Mg Tablet PO 02/04/25 20:59 0.6 mg DAILY SHERYL Administration Dextrose 25 ml 01/05/25 04:14 Dextrose 50%-Water Inj 50 Ml Syringe IV 02/04/25 04:13 Q15MIN PRN BG 50-70 responsive npo pt Dextrose 50 ml 01/05/25 04:14 Dextrose 50%-Water Inj 50 Ml Syringe IV 02/04/25 04:13 Q15MIN PRN BG <50 OR BG <70 & pt unresponsive Furosemide 20 mg 01/06/25 09:00 01/06/25 09:44 Furosemide 20 Mg Tablet PO 02/05/25 08:59 20 mg DAILY SHERYL Administration Gabapentin 400 mg 01/05/25 21:00 01/06/25 09:44 Gabapentin 100 Mg Capsule PO 02/04/25 20:59 400 mg BID SHERYL Administration Glucagon 1 mg 01/05/25 04:14 Glucagon Inj 1 Mg Vial IM Q15MIN PRN BG <70, and no IV access Hydromorphone HCl 0.5 mg 01/05/25 04:31 01/05/25 20:51 Hydromorphone Inj 2 Mg/Ml Vial IVP 01/10/25 04:30 0.5 mg Q4H PRN Administration PAIN SCALE 7-10 (Severe Cefepime HCl 2 gm/ Sodium 50 mls @ 100 mls/hr 01/06/25 10:15 Chloride IV 01/13/25 10:14 DAILY SHERYL Insulin Glargine 15 unit 01/05/25 09:00 01/06/25 09:44 Insulin Glargine (Lantus) 5 Unit/0.05 Ml (Per 5 Units) SC 02/04/25 08:59 Not Given BID SHERYL Insulin Human Lispro 0 unit 01/05/25 07:30 01/06/25 07:38 Insulin Lispro (Admelog) 1 Unit/0.01 Ml Unit SC 02/04/25 07:29 2 unit AC SHERYL Administration Protocol Medroxyprogesterone Acetate 10 mg 01/05/25 22:00 01/06/25 05:18 Medroxyprogesterone Acet 2.5 Mg Tablet PO 02/04/25 21:59 10 mg TID SHERYL Administration Ondansetron HCl 4 mg 01/05/25 04:31 Ondansetron Inj 2 Mg/Ml Inj 2 Ml IV 02/04/25 04:30 Q6H PRN NAUSEA OR VOMITING Protocol Pantoprazole Sodium 40 mg 01/05/25 09:00 01/06/25 09:43 Pantoprazole Inj 40 Mg Vial IVP 02/04/25 08:59 40 mg QDAY SHERYL Administration Propranolol HCl 10 mg 01/05/25 21:00 01/06/25 09:43 Propranolol 10 Mg Tablet PO 02/04/25 20:59 10 mg BID SHERYL Administration Ursodiol 300 mg 01/05/25 22:00 01/06/25 05:18 Ursodiol 300 Mg Capsule PO 02/04/25 21:59 300 mg TID SHERYL Administration Plan Sharonda Hopper is a 54-year-old female with a past medical history of primary biliary cholangitis, cirrhosis, severe thrombocytopenia (follows at cancer center), CKD (follows Dr. Neil), sleep apnea, and recurrent staph infections and necrotizing fasciitis who presents with chest discomfort, nausea, vomiting, and fever. Cardiology consulted for ACS rule-out given atypical chest discomfort and elevated troponins. #NSTEMI type II, demand ischemia #Hypertensive urgency #Atypical chest pain #Elevated troponins Presents with atypical chest pain that is to the back elevated troponins that peaked at 0.06 and now downtrending. EKG showed sinus tachycardia with nonspecific T wave abnormalities but unchanged from prior EKG approximately 1 week earlier. States that she follows up with Dr. Lima in [place] and has undergone echo without any reported abnormalities, no stress test or angiogram. Elevated troponins likely demand ischemia in setting of hypertensive urgency with max recorded BP of 184/66 as patient does not take any antihypertensives at home and had episode of epistaxis. Troponins down trended to within normal limits. A1c 7.3%. ? Follow-up cardiac echo ? Poor surgical candidate given cirrhosis and severe thrombocytopenia ? Currently on propranolol 10 mg PO BID, consider uptitrating as needed as HR tolerates given mildly elevated BPs #? Pericarditis Additionally, patient states that chest discomfort is worse when in laying position and improves when sitting and leaning forward. ESR and CRP noted to be within normal limits, but will follow-up with echo to further evaluate. ? Follow-up cardiac echo #Sepsis secondary to UTI #Lactic acidosis #Severe thrombocytopenia #Hypomagnesemia #JULIUS on stage IIIb CKD #Cirrhosis 2/2 #Primary biliary cholangitis #Hyperbilirubinemia #Mild anemia ? Management per primary team and other consultants ----- Plan discussed with attending physician Dr. Miles Ta MD PGY-1 Internal Medicine Attending Provider Attestation/Addendum I have personally seen and examined the patient separately on the above date of service and discussed the plan of care with the resident. I reviewed the resident Dr. Willis Ta consultation progress note and agree with the resident findings and plan in the note above and have also edited the documentation to reflect my findings and plan. Hadley Aquino M.D. Interventional Cardiology
[2025-01-06] MEDS: CEFEPIME INJ 2 GM in SODIUM CHLORIDE 0.9% (Popper) 50 ML IV (11:17)
--- NOTE | 2025-01-06 11:29 | PD.RESCONSUL ---
HPI Data of Consult Consult date: 01/06/25 Requesting Physician: Yonis Smith MD Admitting Provider: Mika Mccarty MD Attending Provider: Yonis Smith MD Primary Care Provider: Franko Aguilar MD Consult Narrative Reason for consult: JULIUS History of present illness: Ms. 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 Admitted for sepsis secondary to UTI. She reports mild stomach pain and decreased appetite which started after eating half a burger and fries at [employer] last week. Associated with that was acute episode of chest pain, retrosternal, lasting about 2 minutes. Additionally, reports symptoms of fever of 102 and nausea and recurrent vomiting that started 2 days ago. At the same time, she began experiencing mild,, radiating to her back, appears to be positional, worsening with laying back, not related to activity, not worsened by deep inspiration. Denied headaches, chills, abnormal weight changes, seizures, recent or active respiratory illness, cough, chest pain, SOB, abdominal pain, dysuria, hematuria, or changes in urinary frequency. She has 2 months of intermittent SOB when laying flat. Recently was diagnosed with sleep apnea, pending CPAP. She admits to recurrent bilateral lower extremity edema for which she was prescribed LASIX [address] Morgan. She is diagnosed of IDDM and 2011 for which she has been on INSULIN, with A1C around 7.5. She's had CKD for about 4 to 5 years, sees Dr. Morgan, recently told she's had worsening renal function scheduled for follow-up later this month. Cirrhosis was diagnosed in 2019 for which she follows up with [facility]. Reports postmenopausal bleed. Currently having active symptoms. Earlier this month, she presented to ED with bilateral LE/UE spams. Initially thought she was experiencing seizures, but clarified that there was no loss of consciousness or incontinence. The provider suggested they might be spasms rather than focal seizures. Currently seeing Dr. Choe. On presentation she was septic with workup significant for T101, HR 102, RR 22, BP 179/74, WBC 2.1, Hgb 11.1, PLT 22, sodium 144, potassium 3.9, BUN/Cr 35/2.5, BS 186, LA 2.8, magnesium 1.5, TB 3.1, AST 35, ALT 24, Trope 0.061, BNP 178, PRO-DIAZ 7.5. UA was turbid with WBCs 563, RBCs 89, 2+ RBCs, 2+ protein. EKG showed sinus tachycardia on EKG, HR 101. CXR vascular congestion. CT CAP splenomegaly, perigastric varices, cirrhosis, splenomegaly, 4 mm pulmonary nodule of right lobe. Gallbladder ultrasound showed gastroesophageal varices and cirrhosis. She received adequate amount of fluid, currently on maintenance. CR appears to have worsened despite adequate fluids, currently, CR 2.9. Home FUROSEMIDE 20 mg was restarted today. Reports normal urine output. Currently n.p.o. for EGD later today. Cardiology team following for NSTEMI. Echocardiogram was taken, pending final read. Primary team also suspecting pericarditis. She was recently started on CHOLCHICINE outpatient for gout, which likely worsened renal function. Nephrology was consulted for elevated creatinine levels and will undergo further evaluation for postmenopausal bleeding. cc:: cc: Yonis Smith MD Exam Vital Signs Temp Pulse Resp BP Pulse Ox O2 Del Method 97.6 F 82 14 153/79 H 99 Room Air 01/06/25 08:00 01/06/25 09:44 01/06/25 08:00 01/06/25 09:44 01/06/25 08:00 01/06/25 08:00 Narrative Exam GENERAL Obese middle-aged female, on room air, NAD. HEENT NCAT.?JOSE FRANCISCO. Oral mucosa is moist. Patent Nares NECK Supple, nontender, no thyromegaly, no meningismus, no JVD, no step offs CHEST Suspected grade 1 systolic murmur, tachycardic, normal rhythm. No rubs or gallops Trace bibasilar crackles, no wheezing. Symmetrical chest rise. No intercostal subcostal retraction Atraumatic, nontender, no crepitus, symmetrical expansion. ABDOMEN Soft, flat, nontender. No guarding/rebound tenderness/masses. Bowel sounds presents EXTREMITIES No edema/cyanosis.? SKIN Warm and dry, no jaundice/rashes. NEUROMUSCULAR No lumbar or midline, no CVA, no paraspinal muscle spasm or tenderness. Moves all 4 extremities well, with full ROM and good CSM. ORTIZ x4, CN II-XII grossly intact. No focal neurologic deficits. PSYCHIATRY Normal mood and affect, cooperative, no SI or HI or hallucinations. Results Labs 01/06/25 04:15 01/06/25 04:15 Labs: Short CBC 01/06/25 Range/Units 04:15 WBC 3.8 (3.6-11.0) Thou/mm3 Hgb 9.5 L (12.0-16.0) g/dL Hct 27.5 L (36.0-46.0) % Plt Count 18 L* (140-440) Thou/mm3 BMP 01/06/25 04:15 Sodium 141 Potassium 4.9 Chloride 110 H Carbon Dioxide 21.3 BUN 53 H Creatinine 2.9 H Glucose 176 H Calcium 8.7 Liver Function 01/06/25 Range/Units 04:15 Total Bilirubin 2.5 H D (0.3-1.2) mg/dL AST 38 H (0-34) U/L ALT 22 (10-49) U/L Alkaline Phosphatase 59 (46-116) U/L Albumin 3.2 L (3.5-5.0) gm/dL Quality Measures Quality Measures sepsis Current suspected stage: sepsis Possible source: unknown Blood cultures ordered: yes Antibiotic ordered: Yes Medications Home Medications and Allergies Home Medications ?Medication ?Instructions ?Recorded ?Confirmed ?Type liraglutide 0.6 mg/0.1 mL (18 mg/3 1.8 mg subcut QDAY 03/28/18 11/19/23 History mL) subcutaneous pen injector (Victoza 3-Jose) insulin glargine 100 unit/mL (3 35 unit subcut BID 09/30/18 01/05/25 History mL) subcutaneous pen (Basaglar KwikPen U-100 Insulin) ursodiol 300 mg capsule 300 mg PO TID 09/30/18 01/05/25 History hydrocodone 10 mg-acetaminophen 1 tab PO DAILY PRN Pain 01/27/20 01/05/25 History 325 mg tablet B-complex with vitamin C 1 tab PO QDAY 10/27/23 01/05/25 History ascorbic acid (vitamin C) 1,000 mg 1,000 mg PO DAILY 10/27/23 01/05/25 History tablet (Vitamin C) atorvastatin 10 mg tablet 10 mg PO HS 10/27/23 01/05/25 History cholecalciferol (vitamin D3) 25 25 mcg PO QDAY 10/27/23 01/05/25 History mcg (1,000 unit) tablet (Vitamin D3) furosemide 20 mg tablet 20 mg PO DAILY 10/27/23 01/05/25 History gabapentin 400 mg capsule 400 mg PO BID 10/27/23 01/05/25 History insulin aspart U-100 100 unit/mL 10 unit subcut TIDPC 10/27/23 01/05/25 History (3 mL) subcutaneous pen propranolol 10 mg tablet 10 mg PO BID 10/27/23 01/05/25 History tizanidine 2 mg capsule 2 mg PO HSPRN PRN Muscle Spasm 10/27/23 11/19/23 History diclofenac sodium 1 % topical gel 2 g topical .every 6 hr 01/05/25 01/05/25 History ferrous sulfate 325 mg (65 mg 325 mg PO 2XD 01/05/25 01/05/25 History iron) tablet (FeroSul) medroxyprogesterone 10 mg tablet 10 mg PO 3XD 01/05/25 01/05/25 History semaglutide 0.25 mg or 0.5 mg (2 0.5 mg subcut .abdullahi week 01/05/25 01/05/25 History mg/3 mL) subcutaneous pen injector (Ozempic) tizanidine 2 mg tablet 2 mg PO QPM 01/05/25 01/05/25 History zinc sulfate 50 mg zinc (220 mg) 50 mg PO QDAY 01/05/25 01/05/25 History capsule Allergies Allergy/AdvReac Type Severity Reaction Status Date / Time tramadol Allergy Severe Hives Verified 01/06/25 18:15 Visit Medications Acetaminophen (Acetaminophen 325 Mg Tablet) 325 mg PO Q6H PRN PRN Reason: PAIN SCALE 1-3 (mild Stop: 02/04/25 04:30 Hydrocodone Bitart/Acetaminophen (Hydrocodone/Apap 5/325 Tablet) 1 tab PO Q4HR PRN PRN Reason: PAIN SCALE 4-6 (Moderate Stop: 01/10/25 04:30 Last Admin: 01/06/25 07:39 Dose: 1 tab Colchicine (Colchicine 0.6 Mg Tablet) 0.6 mg PO DAILY SHERYL Stop: 02/04/25 20:59 Last Admin: 01/06/25 09:43 Dose: 0.6 mg Dextrose (Dextrose 50%-Water Inj 50 Ml Syringe) 25 ml IV Q15MIN PRN PRN Reason: BG 50-70 responsive npo pt Stop: 02/04/25 04:13 Dextrose (Dextrose 50%-Water Inj 50 Ml Syringe) 50 ml IV Q15MIN PRN PRN Reason: BG <50 OR BG <70 & pt unresponsive Stop: 02/04/25 04:13 Furosemide (Furosemide 20 Mg Tablet) 20 mg PO DAILY [facility] Stop: 02/05/25 08:59 Last Admin: 01/06/25 09:44 Dose: 20 mg Gabapentin (Gabapentin 100 Mg Capsule) 400 mg PO BID [facility] Stop: 02/04/25 20:59 Last Admin: 01/06/25 09:44 Dose: 400 mg Glucagon (Glucagon Inj 1 Mg Vial) 1 mg IM Q15MIN PRN PRN Reason: BG <70, and no IV access Hydromorphone HCl (Hydromorphone Inj 2 Mg/Ml Vial) 0.5 mg IVP Q4H PRN PRN Reason: PAIN SCALE 7-10 (Severe Stop: 01/10/25 04:30 Last Admin: 01/05/25 20:51 Dose: 0.5 mg Cefepime HCl 2 gm/ Sodium (Chloride) 50 mls @ 100 mls/hr IV DAILY [facility] Stop: 01/13/25 10:14 Last Admin: 01/06/25 11:17 Dose: 100 mls/hr Insulin Glargine (Insulin Glargine (Lantus) 5 Unit/0.05 Ml (Per 5 Units)) 15 unit SC BID [facility] Stop: 02/04/25 08:59 Last Admin: 01/06/25 09:44 Dose: Not Given Insulin Human Lispro (Insulin Lispro (Admelog) 1 Unit/0.01 Ml Unit) 0 unit SC AC [facility]; Protocol Stop: 02/04/25 07:29 Last Admin: 01/06/25 07:38 Dose: 2 unit Medroxyprogesterone Acetate (Medroxyprogesterone Acet 2.5 Mg Tablet) 10 mg PO TID [facility] Stop: 02/04/25 21:59 Last Admin: 01/06/25 05:18 Dose: 10 mg Ondansetron HCl (Ondansetron Inj 2 Mg/Ml Inj 2 Ml) 4 mg IV Q6H PRN; Protocol PRN Reason: NAUSEA OR VOMITING Stop: 02/04/25 04:30 Pantoprazole Sodium (Pantoprazole Inj 40 Mg Vial) 40 mg IVP QDAY SHERYL Stop: 02/04/25 08:59 Last Admin: 01/06/25 09:43 Dose: 40 mg Propranolol HCl (Propranolol 10 Mg Tablet) 10 mg PO BID SHERYL Stop: 02/04/25 20:59 Last Admin: 01/06/25 09:43 Dose: 10 mg Ursodiol (Ursodiol 300 Mg Capsule) 300 mg PO TID SHERYL Stop: 02/04/25 21:59 Last Admin: 01/06/25 05:18 Dose: 300 mg Discontinued Medications Acetaminophen (Acetaminophen 500 Mg Tablet) 1,000 mg PO X1 ONE Stop: 01/04/25 22:36 Last Admin: 01/04/25 22:58 Dose: 1,000 mg Acetaminophen (Acetaminophen 325 Mg Tablet) 650 mg PO X1 ONE Stop: 01/05/25 04:02 Last Admin: 01/05/25 04:41 Dose: 650 mg Acetaminophen (Acetaminophen 325 Mg Tablet) 650 mg PO Q6H PRN PRN Reason: PAIN SCALE 1-3 (mild Stop: 02/04/25 04:30 Colchicine (Colchicine 0.6 Mg Tablet) 0.6 mg PO BID [facility] Stop: 02/04/25 20:59 Last Admin: 01/05/25 20:51 Dose: 0.6 mg Diphenhydramine HCl (Diphenhydramine Inj 50 Mg/Ml Vial) 12.5 mg IV X1 ONE Stop: 01/05/25 23:13 Last Admin: 01/05/25 23:20 Dose: 12.5 mg Sodium Chloride (Ns) 1,000 mls @ 999 mls/hr IV .Q1H1M ONE Stop: 01/04/25 23:31 Last Infusion: 01/05/25 00:46 Dose: Infused Ceftriaxone Sodium/Dextrose (Rocephin/D5w 1gm Iv Premix) 1 gm in 50 mls @ 100 mls/hr IV X1 ONE Stop: 01/04/25 23:01 Last Infusion: 01/04/25 23:28 Dose: Infused Magnesium Sulfate (Magnesium Sulfate Ivpb) 2 gm in 50 mls @ 25 mls/hr IV X1 ONE Stop: 01/05/25 02:07 Last Infusion: 01/05/25 02:36 Dose: Infused Lactated Ringer's (Lactated Ringers) 1,000 mls @ 999 mls/hr IV .Q1H1M ONE Stop: 01/05/25 05:02 Last Infusion: 01/05/25 07:53 Dose: Infused Cefepime HCl 1 gm/ Sodium (Chloride) 50 mls @ 100 mls/hr IV Q12HR SHERYL Stop: 01/12/25 20:59 Cefepime HCl 1 gm/ Sodium (Chloride) 50 mls @ 100 mls/hr IV X1 ONE Stop: 01/05/25 05:14 Last Infusion: 01/05/25 05:12 Dose: Infused Lactated Ringer's (Lactated Ringers) 1,000 mls @ 75 mls/hr IV .[id number] SHERYL Stop: 02/04/25 10:51 Last Admin: 01/06/25 03:20 Dose: 75 mls/hr Ciprofloxacin/Dextrose (Cipro Ivpb) 400 mg in 200 mls @ 200 mls/hr IV Q12HR SHERYL Stop: 01/12/25 10:52 Last Admin: 01/06/25 09:56 Dose: Not Given Ketorolac Tromethamine (Ketorolac Inj 30 Mg/Ml Vial) 30 mg IVP X1 ONE Stop: 01/04/25 22:59 Last Admin: 01/04/25 23:15 Dose: 30 mg Labetalol HCl (Labetalol Inj 5 Mg/Ml Vial 20 Ml) 10 mg IVP X1 ONE Stop: 01/05/25 18:09 Last Admin: 01/05/25 18:23 Dose: 10 mg Morphine Sulfate (Morphine Sulf Inj 10 Mg/Ml Vial) 4 mg IVP X1 ONE Stop: 01/05/25 02:59 Last Admin: 01/05/25 03:18 Dose: 4 mg Tizanidine HCl (Tizanidine Hcl 2 Mg Tablet) 2 mg PO QPM SHERYL Stop: 02/04/25 20:59 Assessment & Plan Plan 50-year-old female PMHx of CKD (Dr Neil), 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 Admitted for sepsis secondary to UTI. Has worsening renal function since admission. JULIUS on CKD 3B JULIUS in setting of sepsis. volume loss, vomiting. Likely CKD 3B based on GFR 31 from 11/2024. Presented with CR 2.5 > 2.9 (baseline 1.9). UA cloudy with 2+ protein, 2+ blood, +LE, WBC 825 Noted trace bibasilar crackles on exam. No LE edema on exam. ? Discontinue LASIX ? Continue maintanance IVF ? Prefer PREDNISONE over CHOLCHINE which was started recently outpatient fro gout. ? Pending urine nitrogen and creatinine ? Renally dose meds, avoid overdiuresis and NEPHROTOXINS ? Daily CMP Sepsis secondary to gastroenteritis ?GNR bacteremia Lactic acidosis Ruled out urinary tract infection Cirrhosis secondary to PBC Hyperbilirubinemia Gastric and esophageal varices by history Severe thrombocytopenia NSTEMI, likely type II Trace bilateral pitting edema Electrolyte abnormalities Hypomagnesemia Mild anemia Dysfunctional uterine bleeding Thickened endometrium Gout Chronic pain ? Managed by primary team. Thank you for the opportunity to participate in the patient's care Case was discussed with attending, Dr. [place]. Sonali Amaya, DO PGYI Attending Provider Attestation/Addendum Patient seen and examined with resident physician Dr. Lyon. Note reviewed, agree with findings and recommendations. Patient admitted with sepsis, GI symptoms of nausea, vomiting. Going for endoscopy. Clinically looks rather hypovolemic. Agree with IV fluids for now. She is morbidly obese with a BMI of 52.9. Hold diuretics. Plan of care discussed with primary care. Patient going for endoscopy today with Dr. Ny. Thank you Yonis for allowing me to participate in the care of Ms. Hopper
[2025-01-06 12:45] LABS: HCG,Qualitative Serum Negative
[2025-01-06 13:22] LABS: Glucose Estimated Average 163 mg/dL (80-131); Hemoglobin A1C 7.3 % Hgb (4.8-6.0)
[2025-01-06 16:30] LABS: Creatinine,Urine 98 mg/dL (30-125); Patient Height,Urine 62 Inches; Patient Weight,Urine 289 Pounds; Serum Creatinine Result 2.9 mg/dL
[2025-01-06] MEDS: SODIUM CHLORIDE 0.45 % 1,000 ML 100 ML IV (16:39)
[2025-01-06] MEDS: RINGERS LACTATED 1000 ML 1,000 ML 125 ML IV (17:40)
--- NOTE | 2025-01-06 18:05 | SUR.PHASEI ---
Pt. arrived to recovery via [place], AAOx3, no c/o pain or nausea at this time, VSS, lung sounds clear, equal expansion landry., pt. receiving 5 liters 02 via NC, blood glucose assessed on arrival 139. Report received from Ary BONNER and Dr. Browning.
--- NOTE | 2025-01-06 18:26 | SUR.PHASEI ---
Called and gave report on pt. s/p procedure to Lucia BONNER on telemetry unit.
--- NOTE | 2025-01-06 18:30 | SUR.PHASEI ---
Pt. transferred to room 264 via ALEAH munson, no c/o pain or nausea at this time, Lucia BONNER assumed care of pt.
[2025-01-06] MEDS: GABAPENTIN 100 MG, GABAPENTIN 300 MG 400 MG PO (20:33)
[2025-01-06] MEDS: INSULIN GLARGINE (Lantus) 5 UNIT/0.05 ML (PER 5 UNITS) 15 UNIT SC (20:33)
--- NOTE | 2025-01-06 20:43 | PC.NURSE ---
Pt requested 2200 meds be given early so she can sleep. You approved.
[2025-01-06 21:59] LABS: Collection Time,Urine 24 Hours; Creatinine 24 Hour,Urine 1.3 gm/24hr (0.6-1.5); Creatinine Clearance Urine 23 mL/min (90-139); Total Volume,Urine 1280 mL (600-1800)
[2025-01-07] VITALS (10 sets, daily range): BP systolic 124–159; BP diastolic 60–89; PULSE 74–95; RESP 14–100; TEMP 36.1–36.7; O2SAT 94–99; BMI 53.4
[2025-01-07] MEDS: ursodioL 300 MG CAPSULE PO ×3 (05:28→21:15)
[2025-01-07] MEDS: MEDRoxyPROGESTERone ACET 2.5 MG TABLET 10 MG PO ×3 (05:28→21:15)
[2025-01-07 05:45] LABS: Basophils % (Auto) 1 % (0-2.5); Eosinophils # (Auto) 0.1 Thou/mm3 (0.0-0.5); Eosinophils % (Auto) 4 % (0-10); Hematocrit 26.6 % (36.0-46.0); Hemoglobin 9.2 g/dL (12.0-16.0); Immature Granulocytes % (Auto) 0 % (0-0); Immature Granulocytes Auto 0.01 Thou/mm3 (0.00-0.00); Lymphocytes # (Auto) 0.5 Thou/mm3 (1.0-4.8); Lymphocytes % (Auto) 14 % (10-50); Mean Corpuscular HGB Conc 34.6 g/dl (31.0-37.0); Mean Corpuscular Hemoglobin 32.3 pg (25.0-35.0); Mean Corpuscular Volume 93 fL (80-100); Monocytes # (Auto) 0.5 Thou/mm3 (0.0-0.8); Monocytes % (Auto) 14 % (0-12); Neutrophils # (Auto) 2.3 Thou/mm3 (1.8-7.7); Neutrophils % (Auto) 68 % (37-80); Nucleated Red Blood Cell % 0 /100 WBC (0); RDW Standard Deviation 50.9 fL (36.4-46.3); Red Blood Count 2.85 Miln/mm3 (4.00-5.20); White Blood Count 3.3 Thou/mm3 (3.6-11.0)
[2025-01-07 05:53] LABS: INR 1.3 (0.9-1.3); Prothrombin Time 14.3 Seconds (9.0-12.2)
[2025-01-07 05:59] LABS: Platelet Count 26 Thou/mm3 (140-440)
[2025-01-07 06:01] LABS: Slide Review Platelets confirmed
[2025-01-07 06:06] LABS: Alanine Aminotransferase 19 U/L (10-49); Alkaline Phosphatase 54 U/L (46-116); Anion Gap 7 (7-16); Aspartate Amino Transferase 28 U/L (0-34); BUN/Creatinine Ratio 20 Ratio (12-20); Bilirubin,Total 1.6 mg/dL (0.3-1.2); Blood Urea Nitrogen 49 mg/dL (9-23); Calcium 8.6 mg/dL (8.3-10.6); Calcium (Corrected) 9.4 mg/dL (8.5-10.1); Carbon Dioxide 22.7 mMol/L (20.0-31.0); Chloride 110 mMol/L (98-107); Creatinine (Component) 2.4 mg/dL (0.6-1.3); Estimated Creatinine Clearance 34.9 mL/min (>60); Globulin 2.9 gm/dL (2.3-3.5); Glucose 224 mg/dL (74-106); Magnesium 1.9 mg/dL (1.6-2.6); Osmolality,Calculated 299 (275-295); Phosphorous 3.7 mg/dL (2.4-5.1); Potassium 4.8 mMol/L (3.4-5.1); Sodium 140 mMol/L (136-145); Total Protein 5.9 gm/dL (5.7-8.2); eGFR 23 See Note
--- NOTE | 2025-01-07 08:03 | ESPR_ITS ---
Documentation for date of: 01/07/25 Subjective Subjective Interval history: Patient seen and examined at bedside. Patient's renal function improved overnight, nephrology consulted. Recommended holding fluids for now. Will follow kidney function in a.m. Patient's bilirubin INR and platelet count is improved compared to yesterday. Patient is status post EGD, EGD findings significant for esophageal varices grade 1, gastric varices. Gastric varices were not banded as patient had thrombocytopenia Otherwise patient's clinical status is improved, will monitor renal function in a.m. ordered physical therapy Anticipate discharge in the next 24 hours if renal function is improving or stable. Exam Vital Signs Temp Pulse Resp BP Pulse Ox O2 Del Method O2 Flow Rate 97.0 F 95 18 146/60 H 95 Room Air 2 01/07/25 04:00 01/07/25 04:00 01/07/25 04:00 01/07/25 04:00 01/07/25 04:00 01/07/25 04:00 01/06/25 18:10 Narrative Exam General: AOx3, pleasant, obese, mild distress from pain, able to speak full sentences, answers questions appropriately HEENT: NC/AT, mucous membranes moist, bilateral sclera anicteric Cardiovascular: S1/S2 auscultated with possible third sound, regular rate and rhythm Pulmonary: clear to auscultation bilaterally, no rales/rhonchi/wheezes Abdominal: tenderness to palpation in epigastrium, obese, soft, non-distended, no rebound/guarding Musculoskeletal: 1+ bilateral lower extremity pitting edema, normal ROM Skin: hirsutism, possible early venous stasis changes, warm and dry, intact, no rashes Neuro: CN II-XII intact, no focal deficits Objective Labs 01/07/25 05:03 01/07/25 05:03 Labs: Laboratory Results - last 24 hr 01/06/25 01/06/25 01/07/25 04:15 11: 05:03 WBC 3.3 L RBC 2.85 L Hgb 9.2 L Hct 26.6 L MCV 93 MCH 32.3 MCHC 34.6 RDW Std Deviation 50.9 H Plt Count 26 L* D Neut % (Auto) 68 Lymph % (Auto) 14 [place] % (Auto) 14 H Eos % (Auto) 4 Baso % (Auto) 1 Neut # (Auto) 2.3 Lymph # (Auto) 0.5 L [place] # (Auto) 0.5 Eos # (Auto) 0.1 Baso # (Auto) 0.0 Immature Gran # (Auto) 0.01 H Absolute Nucleated RBC 0.00 Immature Gran % 0 Nucleated RBC % 0 PT 14.3 H D INR 1.3 Sodium 140 Potassium 4.8 Chloride 110 H Carbon Dioxide 22.7 Anion Gap 7 BUN 49 H Creatinine 2.4 H D Estim Creat Clear Calc 34.9 L eGFR 23 L BUN/Creatinine Ratio [address] Glu mg/dL 163 H Hemoglobin A1c 7.3 H Calculated Osmolality 299 H Calcium 8.6 Corrected Calcium 9.4 Phosphorus 3.7 Magnesium 1.9 Total Bilirubin 1.6 H D AST 28 ALT 19 Alkaline Phosphatase 54 Total Protein 5.9 Albumin 3.0 L Globulin 2.9 Albumin/Globulin Ratio 1.0 L HCG, Qual Negative Ur Random Urea Nitrogn 866.0 Urine Collection Time 24 Urine Total Volume 1280 Ur Creatinine mg% 98 Ur Creatinine 24 Hour 1.3 Height (in) 62 Weight (lb) 289 Creatinine Clearance 23 L Misc Test Result Platelets confirmed Quality Measures Quality Measures sepsis Current suspected stage: sepsis Possible source: unknown Blood cultures ordered: yes Antibiotic ordered: Yes Assessment & Plan Assessment Current Active Medications: Generic Name Dose Route Start Last Admin Trade Name Freq PRN Reason Stop Dose Admin Acetaminophen 325 mg 01/05/25 10:55 Acetaminophen 325 Mg Tablet PO 02/04/25 04:30 Q6H PRN PAIN SCALE 1-3 (mild Hydrocodone Bitart/Acetaminophen 1 tab 01/05/25 04:31 01/06/25 07:39 Hydrocodone/Apap 5/325 Tablet PO 01/10/25 04:30 1 tab Q4HR PRN Administration PAIN SCALE 4-6 (Moderate Colchicine 0.6 mg 01/06/25 09:30 01/06/25 09:43 Colchicine 0.6 Mg Tablet PO 02/04/25 20:59 0.6 mg DAILY SHERYL Administration Dextrose 25 ml 01/05/25 04:14 Dextrose 50%-Water Inj 50 Ml Syringe IV 02/04/25 04:13 Q15MIN PRN BG 50-70 responsive npo pt Dextrose 50 ml 01/05/25 04:14 Dextrose 50%-Water Inj 50 Ml Syringe IV 02/04/25 04:13 Q15MIN PRN BG <50 OR BG <70 & pt unresponsive Furosemide 20 mg 01/06/25 09:00 01/06/25 09:44 Furosemide 20 Mg Tablet PO 02/05/25 08:59 20 mg DAILY SHERYL Administration Gabapentin 100 mg/ Gabapentin 400 mg 01/06/25 21:00 01/06/25 20:33 300 mg PO 02/04/25 20:59 400 mg BID SHERYL Administration Glucagon 1 mg 01/05/25 04:14 Glucagon Inj 1 Mg Vial IM Q15MIN PRN BG <70, and no IV access Hydromorphone HCl 0.5 mg 01/05/25 04:31 01/05/25 20:51 Hydromorphone Inj 2 Mg/Ml Vial IVP 01/10/25 04:30 0.5 mg Q4H PRN Administration PAIN SCALE 7-10 (Severe Cefepime HCl 2 gm/ Sodium 50 mls @ 100 mls/hr 01/06/25 10:15 01/06/25 19:30 Chloride IV 01/13/25 10:14 Infused DAILY SHERYL Infusion Insulin Glargine 15 unit 01/05/25 09:00 01/06/25 20:33 Insulin Glargine (Lantus) 5 Unit/0.05 Ml (Per 5 Units) SC 02/04/25 08:59 15 unit BID SHERYL Administration Insulin Human Lispro 0 unit 01/05/25 07:30 01/06/25 19:36 Insulin Lispro (Admelog) 1 Unit/0.01 Ml Unit SC 02/04/25 07:29 Not Given AC [facility] Protocol Medroxyprogesterone Acetate 10 mg 01/05/25 22:00 01/07/25 05:28 Medroxyprogesterone Acet 2.5 Mg Tablet PO 02/04/25 21:59 10 mg TID SHERYL Administration Ondansetron HCl 4 mg 01/05/25 04:31 Ondansetron Inj 2 Mg/Ml Inj 2 Ml IV 02/04/25 04:30 Q6H PRN NAUSEA OR VOMITING Protocol Pantoprazole Sodium 40 mg 01/05/25 09:00 01/06/25 09:43 Pantoprazole Inj 40 Mg Vial IVP 02/04/25 08:59 40 mg QDAY SHERYL Administration Propranolol HCl 10 mg 01/05/25 21:00 01/06/25 20:33 Propranolol 10 Mg Tablet PO 02/04/25 20:59 10 mg BID SHERYL Administration Ursodiol 300 mg 01/05/25 22:00 01/07/25 05:28 Ursodiol 300 Mg Capsule PO 02/04/25 21:59 300 mg TID SHERYL Administration Plan Assessment and plan: Summary: The patient is a 54-year-old female with significant past medical history of 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 #Sepsis secondary to gastroenteritis #GNR bacteremia #Lactic acidosis #Ruled out urinary tract infection Patient met 4/4 SIRS criteria with temperature 101.9, heart rate 102, respiratory rate 22, WBC 2.1 and source of infection as gastroenteritis, endorgan damage as evidenced by acute kidney injury, lactic acid 2.8, Pro-Feliberto 7.51. qSOFA score 1 Initially urine analysis showed with WBC 563 and RBC 89, leukocyte esterase positive, 4+ urine bacteria, patient's urine had increased squamous cells and she was repeated repeat UA is negative for bacteria. Presented with severe chills, fever, nausea and vomiting. Patient reports eating hamburger before getting symptoms. Patient received 2 L of IV bolus fluid in the ED, and 1 g IV ceftriaxone. Patient was started on cefepime by night team. Patient had mild allergic reaction to ciprofloxacin, had itching was given hydroxyzine overnight, considering blood culture positive for GNR -Started on IV cefepime (01/06- -follow-up blood culture for speciation -Monitor closely. #JULIUS on stage IIIb CKD, including Likely prerenal in the setting of sepsis Presented with creatinine of 2.5, baseline creatinine 1.[address] Neil for chronic kidney disease Patient received 2 L of IV bolus crystalloid fluid got IV maintenance fluids LR overnight Patient was given half NS overnight per nephrology recommendations renal function is improved Plan: -Consulted nephrology, appreciate recommendations - Avoid nephrotoxic drugs - Renally dose medications - Daily a.m. labs for renal panel - Will hold Lasix per nephrology recs. 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 Presented with total bilirubin of 3.1 INR 1.5, significant thrombocytopenia, platelet count 18,[address] Wren outpatient, recently had EGD done showed gastric portal varices. Patient was referred to [facility] for further management. EGD 01/06/2025: Significant for grade 1 esophageal varices, gastric varices gastritis Plan: -Resume home dose ursodiol -Resume home dose propranolol -Hold home dose p.o. Lasix per nephrology recommendations -Continue daily IV Protonix -Monitor INR daily -Continue to monitor liver function test daily in the a.m. -GI consulted, appreciate recommendations #Severe thrombocytopenia Patient has history of severe thrombocytopenia secondary to cirrhosis and hypersplenism Follows cancer treatment [facility] Dr. Gresham for thrombocytopenia Platelet level of 22 during presentation, no cassi bleeding assessed - Continue to monitor platelet level and transfuse as needed #NSTEMI, likely type II #Trace bilateral pitting edema #Mild aortic stenosis #Diastolic dysfunction stage I Presented with chest pain, but most likely associated with severe vomiting EKG revealed sinus tachycardia, no ST or T wave changes, troponin 0.[address] 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 Reports extensive history of cardiac disease in family Troponin 0.061-> 0.061-> 0.055 Does have trace bilateral pitting edema on examination, there is concern of heart failure. Echocardiogram 01/06/2025: Normal LV size and function with an LVEF of 55 to 60%. Diastolic dysfunction Stage I Normal RV size and function with moderately elevated RVSP at 45 and 50 mmHg. Mild aortic stenosis with a V-max of 2.6 m/s and mean PG of 30 mmHg. Moderate TR, mild to moderate MR, mild MAC - Cardiology consulted, appreciate recommendations #Electrolyte abnormalities #Hypomagnesemia - Corrected replace electrolytes as needed #Mild anemia Likely multifactorial in the setting 2/2 CKD stage IIIb, with possible GI bleed versus iron deficiency anemia -Continue to monitor H&H daily #Dysfunctional uterine bleeding #Thickened endometrium Patient complains of on and off vaginal bleeding Does have finding of thickened endometrium on CT scan Patient follows [facility] outpatient, reports scheduled for hysterectomy in future Plan: - Resumed home dose medroxyprogesterone 3 times daily #Gout Patient reports history of gout Plan: Resume home dose colchicine #Chronic pain Resume home dose gabapentin Will hold tizanidine considering patient is on ciprofloxacin Health maintenance: Dispo: Patient admitted to telemetry unit for further management of sepsis secondary to UTI Diet: Carb consistent diet DVT prophylaxis: SCDs CODE STATUS: Full code Case discussed with Attending Dr. Smith. Sonia Lang PGY1 Disclaimer: This note was dictated by speech recognition. Minor errors in product sales representative may be present due to voice recognition software. Attending Provider Attestation/Addendum I reviewed labs, imaging, EKG, home medications and prior available records. Face to face evaluation was performed by me. I have personally examined the patient and discussed assessment and plan with the IM team. I reviewed the resident note and agree with the plan with exceptions as below. Liver cirrhosis Primary biliary cirrhosis Sepsis secondary to acute gastroenteritis versus SBP Pancytopenia Non-STEMI JULIUS on CKD Insulin-dependent diabetes mellitus with hyperglycemia Got allergy to ciprofloxacin (rash) Changed antibiotics to cefipime Follow-up cultures: showed gram negative rods Trend WBC: Stable Monitor platelet level and monitor for bleeding: Slightly improved Liver US showed gastritis and esophageal vaaricies. Started Protonix 40 mg daily. Consulted GI: Status post EGD that showed esophageal varices but no banding secondary to thrombocytopenia Monitor kidney function: Creatinine improved after IV hydration. Avoid nephrotoxins. Nephrology is following and okay to discharge from nephrology standpoint Continue insulin long-acting plus sliding scale insulin and monitor fingersticks Troponin peaked continue ursodiol and propranolol Consulted cardiology given the chest pain and elevated troponin: recommended echo that showed preserved EF of 55 to 60%, elevated RVSP of 45-50, and stage I diastolic dysfunction Ordered PT evaluation May discharge tomorrow 01/08 if creatinine continues to improve, pending full results of the blood cultures, stable CBC, and further cardiology recommendations
[2025-01-07] MEDS: INSULIN LISPRO (AdmeLOG) 1 UNIT/0.01 ML UNIT SC ×3 (08:13→17:50)
[2025-01-07] MEDS: PANTOPRAZOLE INJ 40 MG VIAL IVP (08:14)
[2025-01-07] MEDS: CEFEPIME INJ 2 GM in SODIUM CHLORIDE 0.9% (Popper) 50 ML IV (08:14)
[2025-01-07] MEDS: PROPRANOLOL 10 MG TABLET PO ×2 (08:15→21:15)
[2025-01-07] MEDS: COLCHICINE 0.6 MG TABLET PO (08:15)
[2025-01-07] MEDS: GABAPENTIN 100 MG, GABAPENTIN 300 MG 400 MG PO ×2 (08:16→21:14)
[2025-01-07] MEDS: INSULIN GLARGINE (Lantus) 5 UNIT/0.05 ML (PER 5 UNITS) 15 UNIT SC ×2 (08:21→21:15)
--- NOTE | 2025-01-07 08:43 | ESPR_ITS ---
Documentation for date of: 01/07/25 Subjective Subjective Interval history: Ms. 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 Admitted for sepsis secondary to UTI. She reports mild stomach pain and decreased appetite which started after eating half a burger and fries at [employer] last week. Associated with that was acute episode of chest pain, retrosternal, lasting about 2 minutes. Additionally, reports symptoms of fever of 102 and nausea and recurrent vomiting that started 2 days ago. At the same time, she began experiencing mild,, radiating to her back, appears to be positional, worsening with laying back, not related to activity, not worsened by deep inspiration. Denied headaches, chills, abnormal weight changes, seizures, recent or active respiratory illness, cough, chest pain, SOB, abdominal pain, dysuria, hematuria, or changes in urinary frequency. She has 2 months of intermittent SOB when laying flat. Recently was diagnosed with sleep apnea, pending CPAP. She admits to recurrent bilateral lower extremity edema for which she was prescribed LASIX [address] Morgan. She is diagnosed of IDDM and 2011 for which she has been on INSULIN, with A1C around 7.5. She's had CKD for about 4 to 5 years, sees Dr. Morgan, recently told she's had worsening renal function scheduled for follow-up later this month. Cirrhosis was diagnosed in 2019 for which she follows up with [facility]. Reports postmenopausal bleed. Currently having active symptoms. Earlier this month, she presented to ED with bilateral LE/UE spams. Initially thought she was experiencing seizures, but clarified that there was no loss of consciousness or incontinence. The provider suggested they might be spasms rather than focal seizures. Currently seeing Dr. Choe. On presentation she was septic with workup significant for T101, HR 102, RR 22, BP 179/74, WBC 2.1, Hgb 11.1, PLT 22, sodium 144, potassium 3.9, BUN/Cr 35/2.5, BS 186, LA 2.8, magnesium 1.5, TB 3.1, AST 35, ALT 24, Trope 0.061, BNP 178, PRO-DIAZ 7.5. UA was turbid with WBCs 563, RBCs 89, 2+ RBCs, 2+ protein. EKG showed sinus tachycardia on EKG, HR 101. CXR vascular congestion. CT CAP splenomegaly, perigastric varices, cirrhosis, splenomegaly, 4 mm pulmonary nodule of right lobe. Gallbladder ultrasound showed gastroesophageal varices and cirrhosis. She received adequate amount of fluid, currently on maintenance. CR appears to have worsened despite adequate fluids, currently, CR 2.9. Home FUROSEMIDE 20 mg was restarted today. Reports normal urine output. Currently n.p.o. for EGD later today. Cardiology team following for NSTEMI. Echocardiogram was taken, pending final read. Primary team also suspecting pericarditis. She was recently started on CHOLCHICINE outpatient for gout, which likely worsened renal function. Nephrology was consulted for elevated creatinine levels and will undergo further evaluation for postmenopausal bleeding. 01/07/2025 examined at bedside. Appears well today. Reports feeling better this morning. Denies fever, chills, headaches, chest pain, sob, cough, GI or urinary symptoms. Renal function improving, CR 2.4, EGFR 23. 24-hour urine output 680 cc. Will continue with oral hydration for now. Exam Vital Signs Temp Pulse Resp BP Pulse Ox O2 Del Method O2 Flow Rate 97.2 F 79 26 H 159/70 H 94 L Room Air 2 01/07/25 08:00 01/07/25 08:00 01/07/25 08:00 01/07/25 08:00 01/07/25 08:00 01/07/25 08:00 01/06/25 18:10 Narrative Exam GENERAL * Obese middle-aged female, on room air, NAD. HEENT * NCAT.?[place]ANCIS[place]. Oral mucosa is moist. Patent Nares NECK * Supple, nontender, no thyromegaly, no meningismus, no JVD, no step offs CHEST * Suspected grade 1 systolic murmur, tachycardic, normal rhythm. No rubs or gallops * CTAB, no wheezing. Symmetrical chest rise. No intercostal subcostal retraction * Atraumatic, nontender, no crepitus, symmetrical expansion. ABDOMEN * Soft, flat, nontender. No guarding/rebound tenderness/masses. * Bowel sounds presents EXTREMITIES * No edema/cyanosis.? SKIN * Warm and dry, no jaundice/rashes. NEUROMUSCULAR * No lumbar or midline, no CVA, no paraspinal muscle spasm or tenderness. * Moves all 4 extremities well, with full ROM and good CSM. * ORTIZ x4, CN II-XII grossly intact. * No focal neurologic deficits. PSYCHIATRY * Normal mood and affect, cooperative, no SI or HI or hallucinations. Objective Labs 01/08/25 04:32 01/08/25 04:32 Labs: Laboratory Results - last 24 hr 01/06/25 01/06/25 01/07/25 04:15 11:25 05:03 WBC 3.3 L RBC 2.85 L Hgb 9.2 L Hct 26.6 L MCV 93 MCH 32.3 MCHC 34.6 RDW Std Deviation 50.9 H Plt Count 26 L* D Neut % (Auto) 68 Lymph % (Auto) 14 [place] % (Auto) 14 H Eos % (Auto) 4 Baso % (Auto) 1 Neut # (Auto) 2.3 Lymph # (Auto) 0.5 L [place] # (Auto) 0.5 Eos # (Auto) 0.1 Baso # (Auto) 0.0 Immature Gran # (Auto) 0.01 H Absolute Nucleated RBC 0.00 Immature Gran % 0 Nucleated RBC % 0 PT 14.3 H D INR 1.3 Sodium 140 Potassium 4.8 Chloride 110 H Carbon Dioxide 22.7 Anion Gap 7 BUN 49 H Creatinine 2.4 H D Estim Creat Clear Calc 34.9 L eGFR 23 L BUN/Creatinine Ratio [address] Glu mg/dL 163 H Hemoglobin A1c 7.3 H Calculated Osmolality 299 H Calcium 8.6 Corrected Calcium 9.4 Phosphorus 3.7 Magnesium 1.9 Total Bilirubin 1.6 H D AST 28 ALT 19 Alkaline Phosphatase 54 Total Protein 5.9 Albumin 3.0 L Globulin 2.9 Albumin/Globulin Ratio 1.0 L HCG, Qual Negative Ur Random Urea Nitrogn 866.0 Urine Collection Time 24 Urine Total Volume 1280 Ur Creatinine mg% 98 Ur Creatinine 24 Hour 1.3 Height (in) 62 Weight (lb) 289 Creatinine Clearance 23 L Misc Test Result Platelets confirmed Quality Measures Quality Measures sepsis Current suspected stage: sepsis Possible source: unknown Blood cultures ordered: yes Antibiotic ordered: Yes Assessment & Plan Assessment Current Active Medications: Generic Name Dose Route Start Last Admin Trade Name Freq PRN Reason Stop Dose Admin Acetaminophen 325 mg 01/05/25 10:55 Acetaminophen 325 Mg Tablet PO 02/04/25 04:30 Q6H PRN PAIN SCALE 1-3 (mild Hydrocodone Bitart/Acetaminophen 1 tab 01/05/25 04:31 01/06/25 07:39 Hydrocodone/Apap 5/325 Tablet PO 01/10/25 04:30 1 tab Q4HR PRN Administration PAIN SCALE 4-6 (Moderate Colchicine 0.6 mg 01/06/25 09:30 01/06/25 09:43 Colchicine 0.6 Mg Tablet PO 02/04/25 20:59 0.6 mg DAILY SHERYL Administration Dextrose 25 ml 01/05/25 04:14 Dextrose 50%-Water Inj 50 Ml Syringe IV 02/04/25 04:13 Q15MIN PRN BG 50-70 responsive npo pt Dextrose 50 ml 01/05/25 04:14 Dextrose 50%-Water Inj 50 Ml Syringe IV 02/04/25 04:13 Q15MIN PRN BG <50 OR BG <70 & pt unresponsive Furosemide 20 mg 01/06/25 09:00 01/06/25 09:44 Furosemide 20 Mg Tablet PO 02/05/25 08:59 20 mg DAILY SHERYL Administration Gabapentin 100 mg/ Gabapentin 400 mg 01/06/25 21:00 01/06/25 20:33 300 mg PO 02/04/25 20:59 400 mg BID SHERYL Administration Glucagon 1 mg 01/05/25 04:14 Glucagon Inj 1 Mg Vial IM Q15MIN PRN BG <70, and no IV access Hydromorphone HCl 0.5 mg 01/05/25 04:31 01/05/25 20:51 Hydromorphone Inj 2 Mg/Ml Vial IVP 01/10/25 04:30 0.5 mg Q4H PRN Administration PAIN SCALE 7-10 (Severe Cefepime HCl 2 gm/ Sodium 50 mls @ 100 mls/hr 01/06/25 10:15 01/06/25 19:30 Chloride IV 01/13/25 10:14 Infused DAILY SHERYL Infusion Insulin Glargine 15 unit 01/05/25 09:00 01/06/25 20:33 Insulin Glargine (Lantus) 5 Unit/0.05 Ml (Per 5 Units) SC 02/04/25 08:59 15 unit BID SHERYL Administration Insulin Human Lispro 0 unit 01/05/25 07:30 01/06/25 19:36 Insulin Lispro (Admelog) 1 Unit/0.01 Ml Unit SC 02/04/25 07:29 Not Given AC SHERYL Protocol Medroxyprogesterone Acetate 10 mg 01/05/25 22:00 01/07/25 05:28 Medroxyprogesterone Acet 2.5 Mg Tablet PO 02/04/25 21:59 10 mg TID SHERYL Administration Ondansetron HCl 4 mg 01/05/25 04:31 Ondansetron Inj 2 Mg/Ml Inj 2 Ml IV 02/04/25 04:30 Q6H PRN NAUSEA OR VOMITING Protocol Pantoprazole Sodium 40 mg 01/05/25 09:00 01/06/25 09:43 Pantoprazole Inj 40 Mg Vial IVP 02/04/25 08:59 40 mg QDAY SHERYL Administration Propranolol HCl 10 mg 01/05/25 21:00 01/06/25 20:33 Propranolol 10 Mg Tablet PO 02/04/25 20:59 10 mg BID SHERYL Administration Ursodiol 300 mg 01/05/25 22:00 01/07/25 05:28 Ursodiol 300 Mg Capsule PO 02/04/25 21:59 300 mg TID SHERYL Administration Plan 50-year-old female PMHx of CKD (Dr Neil), 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 Admitted for sepsis secondary to UTI. Has worsening renal function since admission. Renal function improving overall. Will continue with oral hydration. JULIUS on CKD 3B JULIUS in setting of sepsis. volume loss, vomiting. Likely CKD 3B based on GFR 31 from 11/2024. Presented with CR 2.5 > 2.9 (baseline 1.9). UA cloudy with 2+ protein, 2+ blood, +LE, WBC 825 No signs of fluid overload, lungs clear to auscultation, no lower extremity edema CR 2.4, BUN 49, EGFR 23. ? Current oral hydration ? Prefer PREDNISONE over CHOLCHINE which was started recently outpatient fro gout. ? Pending urine nitrogen and creatinine ? Renally dose meds, avoid overdiuresis and NEPHROTOXINS ? Daily CMP Sepsis secondary to gastroenteritis ?GNR bacteremia Lactic acidosis Ruled out urinary tract infection Cirrhosis secondary to PBC Hyperbilirubinemia Gastric and esophageal varices by history Severe thrombocytopenia NSTEMI, likely type II Trace bilateral pitting edema Electrolyte abnormalities Hypomagnesemia Mild anemia Dysfunctional uterine bleeding Thickened endometrium Gout Chronic pain ? Managed by primary team. Thank you for the opportunity to participate in the patient's care Case was discussed with attending, Dr. [place]. Sonali Amaya DO PGYI Attending Provider Attestation/Addendum Patient seen and examined with resident physician Dr. Lyon. Note reviewed, agree with findings and recommendations. Patient admitted with sepsis, GI symptoms of nausea, vomiting. Patient had endoscopy yesterday. She is feeling much better today. She is morbidly obese with a BMI of 52.9. Hold diuretics. Creatinine improved to 2.4. Recommended to ambulate
--- NOTE | 2025-01-07 09:18 | ESPR_ITS ---
Documentation for date of: 01/07/25 Subjective Subjective Interval history: No acute overnight events reported. Seen and examined at bedside and patient states that yesterday evening she had another episode of chest pain that woke her up from her sleep priot to EGD. Pain was substernal, subsided within 10 minutes without intervention, and did not radiate anywhere (including jaws, neck, back). Underwent EGD on 01/06 that showed grade 1 esophageal varices, gastritis, and gastric varices in fundus and no interventions done. Echo on 01/06 showed EF 55-60%, grade 1 diastolic dysfunction, normal LV size and function; RVSP 45-50 mmHg with normal RV size and function, mild with Vmax 2.6 m/s, PG of 30 mmHg; no signs of pericarditis or any WMA. BP 151/89, otherwise vital signs stable. Labs reviewed and hgb stable at 9.2, platelets 26, K 4.8, Mg 1.9, t bili 1.6, Cr improving at 2.4. Exam Vital Signs Temp Pulse Resp BP Pulse Ox O2 Del Method O2 Flow Rate 97.2 F 79 26 H 159/70 H 94 L Room Air 2 01/07/25 08:00 01/07/25 08:15 01/07/25 08:00 01/07/25 08:15 01/07/25 08:00 01/07/25 08:00 01/06/25 18:10 Narrative Exam General: AOx3, pleasant, obese, mild distress from pain, able to speak full sentences, answers questions appropriately HEENT: NC/AT, mucous membranes moist, bilateral sclera anicteric Cardiovascular: S1/S2 auscultated with possible third sound, regular rate and rhythm Pulmonary: clear to auscultation bilaterally, no rales/rhonchi/wheezes Abdominal: tenderness to palpation in epigastrium, obese, soft, non-distended, no rebound/guarding Musculoskeletal: 1+ bilateral lower extremity pitting edema, normal ROM Skin: hirsutism, possible early venous stasis changes, warm and dry, intact, no rashes Neuro: CN II-XII intact, no focal deficits Objective Labs 01/07/25 05:03 01/07/25 05:03 Labs: Laboratory Results - last 24 hr 01/04/25 01/06/25 01/06/25 22:59 04:15 11:25 WBC 2.1 L RBC 3.48 L Hgb 11.1 L Hct 31.5 L MCV 91 MCH 31.9 MCHC 35.2 RDW Std Deviation 47.3 H Plt Count 22 L* D Neut % (Auto) 87 H Lymph % (Auto) 7 L [place] % (Auto) 3 Eos % (Auto) 2 Baso % (Auto) 1 Neut # (Auto) 1.9 Lymph # (Auto) 0.2 L [place] # (Auto) 0.1 Eos # (Auto) 0.0 Baso # (Auto) 0.0 Immature Gran # (Auto) 0.01 H Absolute Nucleated RBC 0.00 Immature Gran % 1 H Nucleated RBC % 0 ESR 8 PT INR Sodium Potassium Chloride Carbon Dioxide Anion Gap BUN Creatinine Estim Creat Clear Calc eGFR BUN/Creatinine Ratio Glucose Estimated Ave Glu mg/dL 163 H Hemoglobin A1c 7.3 H Calculated Osmolality Calcium Corrected Calcium Phosphorus Magnesium Total Bilirubin AST ALT Alkaline Phosphatase Total Protein Albumin Globulin Albumin/Globulin Ratio HCG, Qual Negative Ur Random Urea Nitrogn 866.0 Urine Collection Time 24 Urine Total Volume 1280 Ur Creatinine mg% 98 Ur Creatinine 24 Hour 1.3 Height (in) 62 Weight (lb) 289 Creatinine Clearance 23 L Misc Test Result Platelets confirmed 01/07/25 05:03 WBC 3.3 L RBC 2.85 L Hgb 9.2 L Hct 26.6 L MCV 93 MCH 32.3 MCHC 34.6 RDW Std Deviation 50.9 H Plt Count 26 L* D Neut % (Auto) 68 Lymph % (Auto) 14 [place] % (Auto) 14 H Eos % (Auto) 4 Baso % (Auto) 1 Neut # (Auto) 2.3 Lymph # (Auto) 0.5 L [place] # (Auto) 0.5 Eos # (Auto) 0.1 Baso # (Auto) 0.0 Immature Gran # (Auto) 0.01 H Absolute Nucleated RBC 0.00 Immature Gran % 0 Nucleated RBC % 0 ESR PT 14.3 H D INR 1.3 Sodium 140 Potassium 4.8 Chloride 110 H Carbon Dioxide 22.7 Anion Gap 7 BUN 49 H Creatinine 2.4 H D Estim Creat Clear Calc 34.9 L eGFR 23 L BUN/Creatinine Ratio [address]ucose [address] Glu mg/dL Hemoglobin A1c Calculated Osmolality 299 H Calcium 8.6 Corrected Calcium 9.4 Phosphorus 3.7 Magnesium 1.9 Total Bilirubin 1.6 H D AST 28 ALT 19 Alkaline Phosphatase 54 Total Protein 5.9 Albumin 3.0 L Globulin 2.9 Albumin/Globulin Ratio 1.0 L HCG, Qual Ur Random Urea Nitrogn Urine Collection Time Urine Total Volume Ur Creatinine mg% Ur Creatinine 24 Hour Height (in) Weight (lb) Creatinine Clearance Misc Test Result Platelets confirmed Quality Measures Quality Measures sepsis Current suspected stage: ruled out Possible source: unknown Blood cultures ordered: yes Antibiotic ordered: Yes Assessment & Plan Assessment Current Active Medications: Generic Name Dose Route Start Last Admin Trade Name Freq PRN Reason Stop Dose Admin Acetaminophen 325 mg 01/05/25 10:55 Acetaminophen 325 Mg Tablet PO 02/04/25 04:30 Q6H PRN PAIN SCALE 1-3 (mild Hydrocodone Bitart/Acetaminophen 1 tab 01/05/25 04:31 01/06/25 07:39 Hydrocodone/Apap 5/325 Tablet PO 01/10/25 04:30 1 tab Q4HR PRN Administration PAIN SCALE 4-6 (Moderate Colchicine 0.6 mg 01/06/25 09:30 01/07/25 08:15 Colchicine 0.6 Mg Tablet PO 02/04/25 20:59 0.6 mg DAILY SHERYL Administration Dextrose 25 ml 01/05/25 04:14 Dextrose 50%-Water Inj 50 Ml Syringe IV 02/04/25 04:13 Q15MIN PRN BG 50-70 responsive npo pt Dextrose 50 ml 01/05/25 04:14 Dextrose 50%-Water Inj 50 Ml Syringe IV 02/04/25 04:13 Q15MIN PRN BG <50 OR BG <70 & pt unresponsive Furosemide 20 mg 01/06/25 09:00 01/06/25 09:44 Furosemide 20 Mg Tablet PO 02/05/25 08:59 20 mg DAILY SHERYL Administration Gabapentin 100 mg/ Gabapentin 400 mg 01/06/25 21:00 01/07/25 08:16 300 mg PO 02/04/25 20:59 400 mg BID SHERYL Administration Glucagon 1 mg 01/05/25 04:14 Glucagon Inj 1 Mg Vial IM Q15MIN PRN BG <70, and no IV access Hydromorphone HCl 0.5 mg 01/05/25 04:31 01/05/25 20:51 Hydromorphone Inj 2 Mg/Ml Vial IVP 01/10/25 04:30 0.5 mg Q4H PRN Administration PAIN SCALE 7-10 (Severe Cefepime HCl 2 gm/ Sodium 50 mls @ 100 mls/hr 01/06/25 10:15 01/07/25 08:14 Chloride IV 01/13/25 10:14 100 mls/hr DAILY SHERYL Administration Insulin Glargine 15 unit 01/05/25 09:00 01/07/25 08:21 Insulin Glargine (Lantus) 5 Unit/0.05 Ml (Per 5 Units) SC 02/04/25 08:59 15 unit BID SHERYL Administration Insulin Human Lispro 0 unit 01/05/25 07:30 01/07/25 08:13 Insulin Lispro (Admelog) 1 Unit/0.01 Ml Unit SC 02/04/25 07:29 2 unit AC SHERYL Administration Protocol Medroxyprogesterone Acetate 10 mg 01/05/25 22:00 01/07/25 05:28 Medroxyprogesterone Acet 2.5 Mg Tablet PO 02/04/25 21:59 10 mg TID SHERYL Administration Ondansetron HCl 4 mg 01/05/25 04:31 Ondansetron Inj 2 Mg/Ml Inj 2 Ml IV 02/04/25 04:30 Q6H PRN NAUSEA OR VOMITING Protocol Pantoprazole Sodium 40 mg 01/05/25 09:00 01/07/25 08:14 Pantoprazole Inj 40 Mg Vial IVP 02/04/25 08:59 40 mg QDAY SHERYL Administration Propranolol HCl 10 mg 01/05/25 21:00 01/07/25 08:15 Propranolol 10 Mg Tablet PO 02/04/25 20:59 10 mg BID SHERYL Administration Ursodiol 300 mg 01/05/25 22:00 01/07/25 05:28 Ursodiol 300 Mg Capsule PO 02/04/25 21:59 300 mg TID SHERYL Administration Plan Sharonda Hopper is a 54-year-old female with a past medical history of primary biliary cholangitis, cirrhosis, severe thrombocytopenia (follows at cancer center), CKD (follows Dr. Neil), sleep apnea, and recurrent staph infections and necrotizing fasciitis who presents with chest discomfort, nausea, vomiting, and fever. Cardiology consulted for ACS rule-out given atypical chest discomfort and elevated troponins. #NSTEMI type II, demand ischemia #Hypertensive urgency #Atypical chest pain #Elevated troponins Presents with atypical chest pain that is to the back elevated troponins that peaked at 0.06 and now downtrending. EKG showed sinus tachycardia with nonspecific T wave abnormalities but unchanged from prior EKG approximately 1 week earlier. States that she follows up with Dr. Lima in [place] and has undergone echo without any reported abnormalities, no stress test or angiogram. Elevated troponins likely demand ischemia in setting of hypertensive urgency with max recorded BP of 184/66 as patient does not take any antihypertensives at home and had episode of epistaxis. Troponins down trended to within normal limits. A1c 7.3%. Echo on 01/06 showed EF 55-60%, grade 1 diastolic dysfunction, normal LV size and function; RVSP 45-50 mmHg with normal RV size and function, mild with Vmax 2.6 m/s, PG of 30 mmHg; no signs of pericarditis or any WMA. ? Poor surgical candidate given cirrhosis and severe thrombocytopenia ? Currently on propranolol 10 mg PO BID, consider uptitrating as needed as HR tolerates given mildly elevated BPs #Pericarditis ruled out Additionally, patient states that chest discomfort is worse when in laying position and improves when sitting and leaning forward. ESR and CRP noted to be within normal limits. Echo on 01/06 showed EF 55-60%, grade 1 diastolic dysfunction, normal LV size and function; RVSP 45-50 mmHg with normal RV size and function, mild with Vmax 2.6 m/s, PG of 30 mmHg; no signs of pericarditis or any WMA. #Sepsis secondary to UTI #Lactic acidosis #Severe thrombocytopenia #Hypomagnesemia #JULIUS on stage IIIb CKD #Cirrhosis 2/2 #Primary biliary cholangitis #Hyperbilirubinemia #Mild anemia ? Management per primary team and other consultants ----- Plan discussed with attending physician Dr. Miles Ta MD PGY-1 Internal Medicine
[2025-01-07] MEDS: HYDROmorphone INJ 2 MG/ML VIAL 0.5 MG IVP ×2 (09:24→21:24)
--- NOTE | 2025-01-07 10:23 | PC.SS ---
Follow up note: Pending neprology consult. Blood cultures are positive. Pt will return home upon dc.
--- NOTE | 2025-01-07 19:15 | PD.IMPROG ---
Documentation for date of: 01/07/25 Subjective Subjective Interval history: Hemoglobin marker 9.2 and 28.6 with a platelet count of 26,000 upper endoscopy showed gastric varices 1+ not large in for band ligation And also gastric varices in the fundic portion stomach left long because of the thrombocytopenia Exam Vital Signs Temp Pulse Resp BP Pulse Ox O2 Del Method O2 Flow Rate 98.1 F 74 20 124/84 99 Room Air 2 01/07/25 16:00 01/07/25 16:00 01/07/25 16:00 01/07/25 16:00 01/07/25 16:00 01/07/25 16:00 01/06/25 18:10 Objective Labs 01/07/25 05:03 01/07/25 05:03 Labs: Laboratory Results - last 24 hr 01/04/25 01/06/25 01/07/25 22:59 11:25 05:03 WBC 2.1 L 3.3 L RBC 3.48 L 2.85 L Hgb 11.1 L 9.2 L Hct 31.5 L 26.6 L MCV 91 93 MCH 31.9 32.3 MCHC 35.2 34.6 RDW Std Deviation 47.3 H 50.9 H Plt Count 22 L* D 26 L* D Neut % (Auto) 87 H 68 Lymph % (Auto) 7 L 14 [place] % (Auto) 3 14 H Eos % (Auto) 2 4 Baso % (Auto) 1 1 Neut # (Auto) 1.9 2.3 Lymph # (Auto) 0.2 L 0.5 L [place] # (Auto) 0.1 0.5 Eos # (Auto) 0.0 0.1 Baso # (Auto) 0.0 0.0 Immature Gran # (Auto) 0.01 H 0.01 H Absolute Nucleated RBC 0.00 0.00 Immature Gran % 1 H 0 Nucleated RBC % 0 0 ESR 8 PT 14.3 H D INR 1.3 Sodium 140 Potassium 4.8 Chloride 110 H Carbon Dioxide 22.7 Anion Gap 7 BUN 49 H Creatinine 2.4 H D Estim Creat Clear Calc 34.9 L eGFR 23 L BUN/Creatinine Ratio 20 Glucose 224 H Calculated Osmolality 299 H Calcium 8.6 Corrected Calcium 9.4 Phosphorus 3.7 Magnesium 1.9 Total Bilirubin 1.6 H D AST 28 ALT 19 Alkaline Phosphatase 54 Total Protein 5.9 Albumin 3.0 L Globulin 2.9 Albumin/Globulin Ratio 1.0 L Urine Collection Time 24 Urine Total Volume 1280 Ur Creatinine 24 Hour 1.3 Creatinine Clearance 23 L Misc Test Result Platelets confirmed Platelets confirmed Impressions Impression: 1+ esophageal varices Gastric fundic varices Patient should be considered as an outpatient for a possible TIPS shunt placement And once the platelet count improves consider upper endoscopy with band ligation of the varices there is the gastric fundic varices Assessment & Plan A&P Narrative # Cirrhosis liver ROSE versus PBC with splenomegaly ascites and portosystemic collaterals # Chest pain cardiology on board # Sepsis due to UTI # JULIUS on CKD # Essential hypertension # Anasarca Plan Patient can have clear liquid diet N.p.o. tomorrow at 11:00 Consent obtained for fiberoptic esophagogastroduodenoscopy with possible therapeutic intervention under intravenous moderate sedation No biopsies because of the thrombocytopenia on the procedure Will follow the patient Antimitochondrial antibody ordered with the titers Thank you for the opportunity to participate in care of this patient Time Spent With Patient Time: Total time spent is greater than 50% in coordination of care (as documented) at patient's floor/unit and/or counseling patient:
[2025-01-08] VITALS (7 sets, daily range): BP systolic 133–162; BP diastolic 59–93; PULSE 75–81; RESP 13–99; TEMP 36.1–36.4; O2SAT 96–98; BMI 53.5
[2025-01-08] MEDS: ursodioL 300 MG CAPSULE PO ×2 (05:06→14:24)
[2025-01-08] MEDS: MEDRoxyPROGESTERone ACET 2.5 MG TABLET 10 MG PO ×2 (05:06→14:24)
[2025-01-08 05:33] LABS: Basophils % (Auto) 0 % (0-2.5); Eosinophils # (Auto) 0.1 Thou/mm3 (0.0-0.5); Eosinophils % (Auto) 4 % (0-10); Hematocrit 27.3 % (36.0-46.0); Hemoglobin 8.9 g/dL (12.0-16.0); Immature Granulocytes % (Auto) 1 % (0-0); Immature Granulocytes Auto 0.04 Thou/mm3 (0.00-0.00); Lymphocytes # (Auto) 0.5 Thou/mm3 (1.0-4.8); Lymphocytes % (Auto) 19 % (10-50); Mean Corpuscular HGB Conc 32.6 g/dl (31.0-37.0); Mean Corpuscular Hemoglobin 31.9 pg (25.0-35.0); Mean Corpuscular Volume 98 fL (80-100); Monocytes # (Auto) 0.5 Thou/mm3 (0.0-0.8); Monocytes % (Auto) 18 % (0-12); Neutrophils # (Auto) 1.6 Thou/mm3 (1.8-7.7); Neutrophils % (Auto) 57 % (37-80); Nucleated Red Blood Cell % 0 /100 WBC (0); Red Blood Count 2.79 Miln/mm3 (4.00-5.20)
[2025-01-08 05:51] LABS: INR 1.3 (0.9-1.3); Prothrombin Time 14.1 Seconds (9.0-12.2)
[2025-01-08 06:02] LABS: Alanine Aminotransferase 16 U/L (10-49); Albumin, Serum 2.9 gm/dL (3.5-5.0); Alkaline Phosphatase 56 U/L (46-116); Anion Gap 5 (7-16); Aspartate Amino Transferase 22 U/L (0-34); BUN/Creatinine Ratio 21 Ratio (12-20); Blood Urea Nitrogen 42 mg/dL (9-23); Calcium 8.8 mg/dL (8.3-10.6); Calcium (Corrected) 9.7 mg/dL (8.5-10.1); Carbon Dioxide 22.7 mMol/L (20.0-31.0); Chloride 110 mMol/L (98-107); Estimated Creatinine Clearance 42.2 mL/min (>60); Globulin 2.9 gm/dL (2.3-3.5); Glucose 231 mg/dL (74-106); Magnesium 1.8 mg/dL (1.6-2.6); Osmolality,Calculated 293 (275-295); Phosphorous 3.1 mg/dL (2.4-5.1); Potassium 4.9 mMol/L (3.4-5.1); Sodium 138 mMol/L (136-145); Total Protein 5.8 gm/dL (5.7-8.2); eGFR 29 See Note
[2025-01-08 06:41] LABS: Platelet Count 26 Thou/mm3 (140-440); White Blood Count 2.8 Thou/mm3 (3.6-11.0)
--- NOTE | 2025-01-08 06:44 | PC.NURSE ---
In chart assisting primary rn.
[2025-01-08] MEDS: INSULIN LISPRO (AdmeLOG) 1 UNIT/0.01 ML UNIT SC ×2 (07:30→11:27)
[2025-01-08 08:59] LABS: Slide Review Platelets confirmed
[2025-01-08] MEDS: COLCHICINE 0.6 MG TABLET PO (09:48)
[2025-01-08] MEDS: CEFEPIME INJ 2 GM in SODIUM CHLORIDE 0.9% (Popper) 50 ML IV (09:48)
[2025-01-08] MEDS: PROPRANOLOL 10 MG TABLET PO (09:48)
[2025-01-08] MEDS: PANTOPRAZOLE INJ 40 MG VIAL IVP (09:48)
[2025-01-08] MEDS: GABAPENTIN 100 MG, GABAPENTIN 300 MG 400 MG PO (09:49)
[2025-01-08] MEDS: INSULIN GLARGINE (Lantus) 5 UNIT/0.05 ML (PER 5 UNITS) 15 UNIT SC (09:49)
--- NOTE | 2025-01-08 11:11 | ESPR_ITS ---
Documentation for date of: 01/08/25 Subjective Subjective Interval history: Ms. 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 Admitted for sepsis secondary to UTI. She reports mild stomach pain and decreased appetite which started after eating half a burger and fries at [employer] last week. Associated with that was acute episode of chest pain, retrosternal, lasting about 2 minutes. Additionally, reports symptoms of fever of 102 and nausea and recurrent vomiting that started 2 days ago. At the same time, she began experiencing mild,, radiating to her back, appears to be positional, worsening with laying back, not related to activity, not worsened by deep inspiration. Denied headaches, chills, abnormal weight changes, seizures, recent or active respiratory illness, cough, chest pain, SOB, abdominal pain, dysuria, hematuria, or changes in urinary frequency. She has 2 months of intermittent SOB when laying flat. Recently was diagnosed with sleep apnea, pending CPAP. She admits to recurrent bilateral lower extremity edema for which she was prescribed LASIX [address] Morgan. She is diagnosed of IDDM and 2011 for which she has been on INSULIN, with A1C around 7.5. She's had CKD for about 4 to 5 years, sees Dr. Morgan, recently told she's had worsening renal function scheduled for follow-up later this month. Cirrhosis was diagnosed in 2019 for which she follows up with [facility]. Reports postmenopausal bleed. Currently having active symptoms. Earlier this month, she presented to ED with bilateral LE/UE spams. Initially thought she was experiencing seizures, but clarified that there was no loss of consciousness or incontinence. The provider suggested they might be spasms rather than focal seizures. Currently seeing Dr. Choe. On presentation she was septic with workup significant for T101, HR 102, RR 22, BP 179/74, WBC 2.1, Hgb 11.1, PLT 22, sodium 144, potassium 3.9, BUN/Cr 35/2.5, BS 186, LA 2.8, magnesium 1.5, TB 3.1, AST 35, ALT 24, Trope 0.061, BNP 178, PRO-DIAZ 7.5. UA was turbid with WBCs 563, RBCs 89, 2+ RBCs, 2+ protein. EKG showed sinus tachycardia on EKG, HR 101. CXR vascular congestion. CT CAP splenomegaly, perigastric varices, cirrhosis, splenomegaly, 4 mm pulmonary nodule of right lobe. Gallbladder ultrasound showed gastroesophageal varices and cirrhosis. She received adequate amount of fluid, currently on maintenance. CR appears to have worsened despite adequate fluids, currently, CR 2.9. Home FUROSEMIDE 20 mg was restarted today. Reports normal urine output. Currently n.p.o. for EGD later today. Cardiology team following for NSTEMI. Echocardiogram was taken, pending final read. Primary team also suspecting pericarditis. She was recently started on CHOLCHICINE outpatient for gout, which likely worsened renal function. Nephrology was consulted for elevated creatinine levels and will undergo further evaluation for postmenopausal bleeding. 01/07/2025 examined at bedside. Appears well today. Reports feeling better this morning. Denies fever, chills, headaches, chest pain, sob, cough, GI or urinary symptoms. Renal function improving, CR 2.4, EGFR 23. 24-hour urine output 680 cc. Will continue with oral hydration for now. 01/08/2025 examined at bedside. Complaining of back pain, has chronic back pain, added CYCLOBENZAPRINE. Denies fever, chills, headaches, chest pain, sob, cough, GI or urinary symptoms. Renal function improving, CR 2.0, BUN 42, EGFR 29, euvolemic on exam, -1.6L fluids overall. Continue holding IVF. Resume home LASIX 20 mg on discharge. Exam Vital Signs Temp Pulse Resp BP Pulse Ox O2 Del Method O2 Flow Rate 97.0 F 77 23 H 133/84 H 97 Room Air 2 01/08/25 08:00 01/08/25 09:48 01/08/25 08:00 01/08/25 09:48 01/08/25 08:00 01/08/25 08:00 01/06/25 18:10 Narrative Exam General: AOx3, pleasant, obese, mild distress from pain, able to speak full sentences, answers questions appropriately HEENT: NC/AT, mucous membranes moist, bilateral sclera anicteric Cardiovascular: S1/S2 auscultated with possible third sound, regular rate and rhythm Pulmonary: clear to auscultation bilaterally, no rales/rhonchi/wheezes Abdominal: tenderness to palpation in epigastrium, obese, soft, non-distended, no rebound/guarding Musculoskeletal: No edema, normal ROM Skin: hirsutism, possible early venous stasis changes, warm and dry, intact, no rashes Neuro: CN II-XII intact, no focal deficits Objective Labs 01/08/25 04:32 01/08/25 04:32 Labs: Laboratory Results - last 24 hr 01/08/25 04:32 WBC 2.8 L RBC 2.79 L Hgb 8.9 L Hct 27.3 L MCV 98 MCH 31.9 MCHC 32.6 RDW Std Deviation 52.0 H Plt Count 26 L* Neut % (Auto) 57 Lymph % (Auto) 19 [place] % (Auto) 18 H Eos % (Auto) 4 Baso % (Auto) 0 Neut # (Auto) 1.6 L Lymph # (Auto) 0.5 L [place] # (Auto) 0.5 Eos # (Auto) 0.1 Baso # (Auto) 0.0 Immature Gran # (Auto) 0.04 H Absolute Nucleated RBC 0.00 Immature Gran % 1 H Nucleated RBC % 0 PT 14.1 H INR 1.3 Sodium 138 Potassium 4.9 Chloride 110 H Carbon Dioxide 22.7 Anion Gap 5 L BUN 42 H Creatinine 2.0 H Estim Creat Clear Calc 42.2 L eGFR 29 L BUN/Creatinine Ratio 21 H Glucose 231 H Calculated Osmolality 293 Calcium 8.8 Corrected Calcium 9.7 Phosphorus 3.1 Magnesium 1.8 Total Bilirubin 2.0 H AST 22 ALT 16 Alkaline Phosphatase 56 Total Protein 5.8 Albumin 2.9 L Globulin 2.9 Albumin/Globulin Ratio 1.0 L Misc Test Result Platelets confirmed Quality Measures Quality Measures sepsis Current suspected stage: sepsis Possible source: unknown Blood cultures ordered: yes Antibiotic ordered: Yes Assessment & Plan Assessment Current Active Medications: Generic Name Dose Route Start Last Admin Trade Name Freq PRN Reason Stop Dose Admin Acetaminophen 325 mg 01/05/25 10:55 Acetaminophen 325 Mg Tablet PO 02/04/25 04:30 Q6H PRN PAIN SCALE 1-3 (mild Hydrocodone Bitart/Acetaminophen 1 tab 01/05/25 04:31 01/06/25 07:39 Hydrocodone/Apap 5/325 Tablet PO 01/10/25 04:30 1 tab Q4HR PRN Administration PAIN SCALE 4-6 (Moderate Colchicine 0.6 mg 01/06/25 09:30 01/08/25 09:48 Colchicine 0.6 Mg Tablet PO 02/04/25 20:59 0.6 mg DAILY SHERYL Administration Dextrose 25 ml 01/05/25 04:14 Dextrose 50%-Water Inj 50 Ml Syringe IV 02/04/25 04:13 Q15MIN PRN BG 50-70 responsive npo pt Dextrose 50 ml 01/05/25 04:14 Dextrose 50%-Water Inj 50 Ml Syringe IV 02/04/25 04:13 Q15MIN PRN BG <50 OR BG <70 & pt unresponsive Furosemide 20 mg 01/06/25 09:00 01/06/25 09:44 Furosemide 20 Mg Tablet PO 02/05/25 08:59 20 mg DAILY SHERYL Administration Gabapentin 100 mg/ Gabapentin 400 mg 01/06/25 21:00 01/08/25 09:49 300 mg PO 02/04/25 20:59 400 mg BID SHERYL Administration Glucagon 1 mg 01/05/25 04:14 Glucagon Inj 1 Mg Vial IM Q15MIN PRN BG <70, and no IV access Hydromorphone HCl 0.5 mg 01/05/25 04:31 01/07/25 21:24 Hydromorphone Inj 2 Mg/Ml Vial IVP 01/10/25 04:30 0.5 mg Q4H PRN Administration PAIN SCALE 7-10 (Severe Cefepime HCl 2 gm/ Sodium 50 mls @ 100 mls/hr 01/06/25 10:15 01/08/25 09:48 Chloride IV 01/13/25 10:14 100 mls/hr DAILY SHERYL Administration Insulin Glargine 15 unit 01/05/25 09:00 01/08/25 09:49 Insulin Glargine (Lantus) 5 Unit/0.05 Ml (Per 5 Units) SC 02/04/25 08:59 15 unit BID SHERYL Administration Insulin Human Lispro 0 unit 01/05/25 07:30 01/08/25 07:30 Insulin Lispro (Admelog) 1 Unit/0.01 Ml Unit SC 02/04/25 07:29 2 unit AC SHERYL Administration Protocol Medroxyprogesterone Acetate 10 mg 01/05/25 22:00 01/08/25 05:06 Medroxyprogesterone Acet 2.5 Mg Tablet PO 02/04/25 21:59 10 mg TID SHERYL Administration Ondansetron HCl 4 mg 01/05/25 04:31 Ondansetron Inj 2 Mg/Ml Inj 2 Ml IV 02/04/25 04:30 Q6H PRN NAUSEA OR VOMITING Protocol Pantoprazole Sodium 40 mg 01/05/25 09:00 01/08/25 09:48 Pantoprazole Inj 40 Mg Vial IVP 02/04/25 08:59 40 mg QDAY SHERYL Administration Propranolol HCl 10 mg 01/05/25 21:00 01/08/25 09:48 Propranolol 10 Mg Tablet PO 02/04/25 20:59 10 mg BID SEHRYL Administration Ursodiol 300 mg 01/05/25 22:00 01/08/25 05:06 Ursodiol 300 Mg Capsule PO 02/04/25 21:59 300 mg TID SHERYL Administration Plan 50-year-old female PMHx of CKD (Dr Neil), 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 Admitted for sepsis secondary to UTI. Has worsening renal function since admission. Renal function improving overall. Will continue with oral hydration. Cleared for discharge from nephrology's perspective. Send on home LASIX 20 mg daily. JULIUS on CKD 3B JULIUS in setting of sepsis. volume loss, vomiting. Likely CKD 3B based on GFR 31 from 11/2024. Presented with CR 2.5 > 2.9 (baseline 1.9). UA cloudy with 2+ protein, 2+ blood, +LE, WBC 825 No signs of fluid overload, lungs clear to auscultation, no lower extremity edema CR 2.0, BUN 42, GFR 29. Euvolemic on exam ? Current oral hydration ? Renally dose meds, avoid overdiuresis and NEPHROTOXINS ? Daily CMP ? Resume home LASIX on discharge Sepsis secondary to gastroenteritis ?GNR bacteremia Lactic acidosis Ruled out urinary tract infection Cirrhosis secondary to PBC Hyperbilirubinemia Gastric and esophageal varices by history Severe thrombocytopenia NSTEMI, likely type II Trace bilateral pitting edema Electrolyte abnormalities Hypomagnesemia Mild anemia Dysfunctional uterine bleeding Thickened endometrium Gout Chronic pain ? Managed by primary team. Thank you for the opportunity to participate in the patient's care Case was discussed with attending, Dr. [place]. Sonali Amaya DO PGYI Attending Provider Attestation/Addendum Patient seen and examined with resident physician Dr. Lyon. Note reviewed, agree with findings and recommendations. Patient admitted with sepsis, GI symptoms of nausea, vomiting. Patient had endoscopy yesterday. She is feeling much better today. She is morbidly obese with a BMI of 52.9. Creatinine improved to 2.0 renal ravi stable for discharge on Lasix. Follow- up with her medical asst.. Recommended to ambulate
[2025-01-08] MEDS: CYCLObenzaPRINE 5 MG TABLET PO (11:28)
--- NOTE | 2025-01-08 11:38 | ESDS_ITS ---
<Statement entered by Mika Jaime MD - 01/13/25 11:45> Patient seen and examined at bedside with resident. Agree with assessment and plan as dictated below. Patient cleared for discharge at this time. Advised follow-up with primary care within 1 week. Given additional doses of antibiotics to complete full course for gram-negative bacteremia. Mika Jaime MD Planned Discharge Date 01/08/25 DS: Providers Provider Date of admission: 01/05/25 04:11 Primary care physician: Franko Aguilar MD Admitting Provider: Mika Mccarty MD Attending Provider on Admission: Yonis Smith MD Consults: 01/05/25 04:13 Consult to Cardiology Routine Comment: chest pain Consulting Provider: Hadley Aquino 01/05/25 10:55 Consult to Gastroenterology Routine Comment: PBC, Cirrhosis Consulting Provider: Kajal Ny 01/05/25 15:40 [facility] Referral - Transportation Routine Comment: Positive screening for transportation needs. [facility] Referral - Utilities Routine Comment: Positive screening for utility assistance needs. 01/06/25 10:01 Consult to Nephrology Routine Comment: JULIUS on CKD Consulting Provider: Lynette Montana 01/07/25 08:00 Referral Physical Therapy Routine Comment: Physician Instructions: Attending Provider on DC: Mika Jaime MD Discharging Provider: Mika Jaime MD Anticipated date of discharge: 01/08/25 DS: Diagnosis Problem List Completed Was Problem List Reviewed/Reconciled?: Yes Hospital Course Hospital Course Hospital course: Hospital course: Ms. 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 Gresham), CKD Stage III (follows Dr Neil), dysfunctional uterine bleeding, recurrent necrotizing fasciitis, diabetes mellitus type 2 and recurrent chest pain (follows Dr. Lima) who presented to [facility] ED/05/2025 chief complaint of chest pain and abdominal pain. Patient was found to be septic, initially the source was thought to be urinary tract infection, but pa tient had significant nausea and vomiting secondary to gastroenteritis. Cardiology was consulted due to elevated troponin and chest pain, patient was found to have NSTEMI type II secondary to demand supply mismatch, gastroenterology was consulted considering underlying PBC and patient's complaining of blood likely from the nosebleed, patient underwent EGD and was found to have esophageal varices and gastric varices which were not banded. Nephrology was consulted for patient's edema and acute kidney injury with trace bleeding noted and improvement IV fluids. With the progression of hospital course patient was found to have bacteremia which was identified as E. coli patient was on IV antibiotics throughout the hospital course. Patient's symptoms did improve with the progression of hospital course, physical therapy was consulted and patient had no significant requirement of PT outpatient. Further plan is to discharge patient home on Augmentin to to complete her antibiotic therapy for bacteremia and follow-up with gastroenterology in 1 week. Patient to follow-up with primary care physician, nephrology, cardiology and hematology. Patient. Patient is stable for discharged, patient responded to hospital. Discharge diagnosis: #Sepsis secondary to bacteremia #E. coli bacteremia #Gastroenteritis #Ruled out UTI #Acute kidney injury on CKD stage IIIb #Cirrhosis #Primary biliary cirrhosis #Hyperbilirubinemia #Metabolic dysfunction associated steatotic liver disease #Morbid obesity #Hyperbilirubinemia #Grade 1 esophageal varices #Gastric varices #Status post EGD 01/06/2025 #Severe thrombocytopenia #NSTEMI, likely type II #Trace bilateral pitting edema #Mild aortic stenosis #Diastolic dysfunction stage I #Electrolyte abnormalities #Hypomagnesemia #Dysfunctional uterine bleeding #Thickened endometrium # Gout # Anemia # Chronic pain Case discussed with Attending Dr. Jaime. Sonia Lang PGY1 Disclaimer: This note was dictated by speech recognition. Minor errors in industrial ecology technician may be present due to voice recognition software. Status at Discharge Functional status at discharge: independent ambulation Overall status at discharge: patient is progressing back to baseline Time Spent with Patient Time attestation: Total time spent providing and/or coordinating discharge services: Greater than 35 minutes Time spent: Greater than 30 minutes Exam Vital Signs Temp Pulse Resp BP Pulse Ox O2 Del Method O2 Flow Rate 97.0 F 77 23 H 133/84 H 97 Room Air 2 01/08/25 08:00 01/08/25 09:48 01/08/25 08:00 01/08/25 09:48 01/08/25 08:00 01/08/25 08:00 01/06/25 18:10 Narrative Exam General: AOx3, pleasant, obese, mild distress from pain, able to speak full sentences, answers questions appropriately HEENT: NC/AT, mucous membranes moist, bilateral sclera anicteric Cardiovascular: S1/S2 auscultated with possible third sound, regular rate and rhythm Pulmonary: clear to auscultation bilaterally, no rales/rhonchi/wheezes Abdominal: tenderness to palpation in epigastrium, obese, soft, non-distended, no rebound/guarding Musculoskeletal: 1+ bilateral lower extremity pitting edema, normal ROM Skin: hirsutism, possible early venous stasis changes, warm and dry, intact, no rashes Neuro: CN II-XII intact, no focal deficits Discharge Plan Plan Patient Disposition: HOME (Self Care) Patient condition on transfer: Stable Care Plan Goals: Continue Augmentin to complete the course of antibiotic, for underlying bacteremia. Continue all home medications. Follow-up with primary care physician in 1 to 2 weeks. Follow-up with switch tender in 1 week. Discuss EGD findings of grade 1 esophageal varices and gastric varices. Follow-up with lift team technician in 1 week. Follow-up with MEASUREMENT ADVISOR regarding thickened endometrial lining and intermittent bleeding in 1 week. Follow-up with assistant professor of life sciences in 2 to 4 weeks. Return to emergency department if symptoms worsen. Prescriptions/Referrals Prescriptions/Med Rec: New amoxicillin-pot clavulanate 875-125 mg tablet 1 tab PO BID 11 Days Qty: 22 0RF colchicine 0.6 mg Tablet 0.6 mg PO DAILY 30 Days Qty: 30 0RF Continued hydrocodone-acetaminophen 10-325 mg tablet 1 tab PO DAILY PRN (Reason: Pain) Patient Comments: TAKE ONE TABLET BY MOUTH THREE TIMES DAILY NEEDED FOR PAIN Rx Instructions: 1-2 tabs ursodiol 300 mg Capsule 300 mg PO TID insulin glargine [Basaglar KwikPen U-100 Insulin] 100 unit/mL (3 mL) Insulin Pen 35 unit SUBCUT BID gabapentin 400 mg capsule 400 mg PO BID Patient Comments: TAKE ONE CAPSULE BY MOUTH TWICE DAILY FOR NERVE PAIN propranolol 10 mg tablet 10 mg PO BID Patient Comments: TAKE ONE TABLET BY MOUTH TWICE DAILY FOR BLOOD PRESSURE atorvastatin 10 mg tablet 10 mg PO HS Patient Comments: TAKE ONE TABLET BY MOUTH EVERY DAY FOR CHOLESTEROL cholecalciferol (vitamin D3) [Vitamin D3] 25 mcg (1,000 unit) Tablet 25 mcg PO QDAY insulin aspart U-100 100 unit/mL (3 mL) Insulin Pen 10 unit SUBCUT TIDPC Rx Instructions: TID after meals B-complex with vitamin C Tablet 1 tab PO QDAY ascorbic acid (vitamin C) [Vitamin C] 1,000 mg Tablet 1,000 mg PO DAILY tizanidine 2 mg capsule 2 mg PO HSPRN PRN (Reason: Muscle Spasm) Patient Comments: TAKE ONE CAPSULE BY MOUTH TWICE DAILY NEEDED FOR MUSCLE SPASMS Rx Instructions: 1-2 tabs Ozempic 0.25 mg or 0.5 mg (2 mg/3 mL) pen injector 0.5 mg SUBCUT .abdullahi week Patient Comments: INJECT 0.5 MG SUBCUTANEOUSLY EVERY WEEK FOR DIABETES ferrous sulfate [FeroSul] 325 mg (65 mg iron) tablet 325 mg PO 2XD Patient Comments: TAKE ONE TABLET BY MOUTH TWICE DAILY WITH ORANGE JUICE diclofenac sodium 1 % gel 2 g TOPICAL .every 6 hr Patient Comments: APPLY TWO GRAM EXTERNALLY EVERY 6 HOURS NEEDED FOR PAIN medroxyprogesterone 10 mg tablet 10 mg PO 3XD Rx Instructions: 3 tablets daily zinc sulfate 50 mg zinc (220 mg) Capsule 50 mg PO QDAY furosemide 20 mg tablet 20 mg PO DAILY Qty: 7 0RF Patient Comments: TAKE ONE TABLET BY MOUTH EVERY MORNING A DIURETIC Discontinued liraglutide [Victoza 3-Jose] 0.6 mg/0.1 mL (18 mg/3 mL) Pen Injector 1.8 mg SUB-Q QDAY tizanidine 2 mg tablet 2 mg PO QPM Patient Comments: TAKE ONE TABLET BY MOUTH TWICE DAILY NEEDED FOR MUSCLE SPASMS Referrals: Franko Aguilar MD [Primary Care Provider] - Patient/Caregiver Discharge Instructions Discharge Activity: activity as tolerated Other Discharge Activity Instructions:: Continue Augmentin to complete the course of antibiotic, for underlying bacteremia. Continue all home medications. Follow-up with primary care physician in 1 to 2 weeks. Follow-up with switch tender in 1 week. Discuss EGD findings of grade 1 esophageal varices and gastric varices. Follow-up with lift team technician in 1 week. Follow-up with MEASUREMENT ADVISOR regarding thickened endometrial lining and intermittent bleeding in 1 week. Follow-up with assistant professor of life sciences in 2 to 4 weeks. Return to emergency department if symptoms worsen. Other Discharge Diet Instructions: Low-sodium diet, fluid restriction less than 2 L in a day. Education Materials: Sepsis, Identifying Your Heart Risks, Understanding Sepsis, ED Bacteremia, Suspected (Adult) Print Language: Italian Stand Alone Forms: Lucie Award Info., Patient Portal Info Letter Discharge Order Discharge Orders: Discharge (Routine); Ordered 01/08/25 Ordered By: Sonia Lang Quality Discharge Quality Measures VTE prophylaxis
--- NOTE | 2025-01-08 13:34 | PD.IMPROG ---
Documentation for date of: 01/08/25 Subjective Subjective Interval history: No acute overnight events reported. No new cardiac complaints. Underwent EGD on 01/06 that showed grade 1 esophageal varices, gastritis, and gastric varices in fundus and no interventions done. Echo on 01/06 showed EF 55-60%, grade 1 diastolic dysfunction, normal LV size and function; RVSP 45-50 mmHg with normal RV size and function, mild with Vmax 2.6 m/s, PG of 30 mmHg; no signs of pericarditis or any WMA. BP 151/89, otherwise vital signs stable. Exam Vital Signs Temp Pulse Resp BP Pulse Ox O2 Del Method O2 Flow Rate 97.5 F 75 18 162/71 H 96 Room Air 2 01/08/25 12:00 01/08/25 12:00 01/08/25 12:00 01/08/25 12:00 01/08/25 12:00 01/08/25 12:00 01/06/25 18:10 Narrative Exam General: AOx3, pleasant, obese, mild distress from pain, able to speak full sentences, answers questions appropriately HEENT: NC/AT, mucous membranes moist, bilateral sclera anicteric Cardiovascular: S1/S2 auscultated with possible third sound, regular rate and rhythm Pulmonary: clear to auscultation bilaterally, no rales/rhonchi/wheezes Abdominal: tenderness to palpation in epigastrium, obese, soft, non-distended, no rebound/guarding Musculoskeletal: 1+ bilateral lower extremity pitting edema, normal ROM Skin: hirsutism, possible early venous stasis changes, warm and dry, intact, no rashes Neuro: CN II-XII intact, no focal deficits Objective Labs 01/08/25 04:32 01/08/25 04:32 Labs: Laboratory Results - last 24 hr 01/08/25 04:32 WBC 2.8 L RBC 2.79 L Hgb 8.9 L Hct 27.3 L MCV 98 MCH 31.9 MCHC 32.6 RDW Std Deviation 52.0 H Plt Count 26 L* Neut % (Auto) 57 Lymph % (Auto) 19 [place] % (Auto) 18 H Eos % (Auto) 4 Baso % (Auto) 0 Neut # (Auto) 1.6 L Lymph # (Auto) 0.5 L Tyler # (Auto) 0.5 Eos # (Auto) 0.1 Baso # (Auto) 0.0 Immature Gran # (Auto) 0.04 H Absolute Nucleated RBC 0.00 Immature Gran % 1 H Nucleated RBC % 0 PT 14.1 H INR 1.3 Sodium 138 Potassium 4.9 Chloride 110 H Carbon Dioxide 22.7 Anion Gap 5 L BUN 42 H Creatinine 2.0 H Estim Creat Clear Calc 42.2 L eGFR 29 L BUN/Creatinine Ratio 21 H Glucose 231 H Calculated Osmolality 293 Calcium 8.8 Corrected Calcium 9.7 Phosphorus 3.1 Magnesium 1.8 Total Bilirubin 2.0 H AST 22 ALT 16 Alkaline Phosphatase 56 Total Protein 5.8 Albumin 2.9 L Globulin 2.9 Albumin/Globulin Ratio 1.0 L Misc Test Result Platelets confirmed Assessment & Plan A&P Raya Hopper is a 54-year-old female with a past medical history of primary biliary cholangitis, cirrhosis, severe thrombocytopenia (follows at [facility] [place]), CKD (follows Dr. Neil), sleep apnea, and recurrent staph infections and necrotizing fasciitis who presents with chest discomfort, nausea, vomiting, and fever. Cardiology consulted for ACS rule-out given atypical chest discomfort and elevated troponins. #NSTEMI type II, demand ischemia #Hypertensive urgency #Atypical chest pain #Elevated troponins Presents with atypical chest pain that is to the back elevated troponins that peaked at 0.06 and now downtrending. EKG showed sinus tachycardia with nonspecific T wave abnormalities but unchanged from prior EKG approximately 1 week earlier. States that she follows up with Dr. Lima in [place] and has undergone echo without any reported abnormalities, no stress test or angiogram. Elevated troponins likely demand ischemia in setting of hypertensive urgency with max recorded BP of 184/66 as patient does not take any antihypertensives at home and had episode of epistaxis. Troponins down trended to within normal limits. A1c 7.3%. Echo on 01/06 showed EF 55-60%, grade 1 diastolic dysfunction, normal LV size and function; RVSP 45-50 mmHg with normal RV size and function, mild with Vmax 2.6 m/s, PG of 30 mmHg; no signs of pericarditis or any WMA. ? Poor surgical candidate given cirrhosis and severe thrombocytopenia ? Currently on propranolol 10 mg PO BID, consider uptitrating as needed as HR tolerates given mildly elevated BPs #Pericarditis ruled out Additionally, patient states that chest discomfort is worse when in laying position and improves when sitting and leaning forward. ESR and CRP noted to be within normal limits. Echo on 01/06 showed EF 55-60%, grade 1 diastolic dysfunction, normal LV size and function; RVSP 45-50 mmHg with normal RV size and function, mild with Vmax 2.6 m/s, PG of 30 mmHg; no signs of pericarditis or any WMA. #Sepsis secondary to UTI #Lactic acidosis #Severe thrombocytopenia #Hypomagnesemia #JULIUS on stage IIIb CKD #Cirrhosis 2/2 #Primary biliary cholangitis #Hyperbilirubinemia #Mild anemia Management of rest of the medical conditions as per primary team and other consultants. Thank you for the consult and allowing me to participate in the care of the patient. Cardiology will continue to follow. Hadley Aquino M.D. Interventional Cardiology Time Spent With Patient Time: Total time spent is greater than 50% in coordination of care (as documented) at patient's floor/unit and/or counseling patient:
--- NOTE | 2025-01-08 13:55 | PD.IMPROG ---
Documentation for date of: 01/08/25 Subjective Subjective Interval history: Case discussed with internal medicine team okay to discharge patient home I will see the patient back in follow-up Exam Vital Signs Temp Pulse Resp BP Pulse Ox O2 Del Method O2 Flow Rate 97.5 F 75 18 162/71 H 96 Room Air 2 01/08/25 12:00 01/08/25 12:00 01/08/25 12:00 01/08/25 12:00 01/08/25 12:00 01/08/25 12:00 01/06/25 18:10 Objective Labs 01/08/25 04:32 01/08/25 04:32 Labs: Laboratory Results - last 24 hr 01/08/25 04:32 WBC 2.8 L RBC 2.79 L Hgb 8.9 L Hct 27.3 L MCV 98 MCH 31.9 MCHC 32.6 RDW Std Deviation 52.0 H Plt Count 26 L* Neut % (Auto) 57 Lymph % (Auto) 19 [place] % (Auto) 18 H Eos % (Auto) 4 Baso % (Auto) 0 Neut # (Auto) 1.6 L Lymph # (Auto) 0.5 L [place] # (Auto) 0.5 Eos # (Auto) 0.1 Baso # (Auto) 0.0 Immature Gran # (Auto) 0.04 H Absolute Nucleated RBC 0.00 Immature Gran % 1 H Nucleated RBC % 0 PT 14.1 H INR 1.3 Sodium 138 Potassium 4.9 Chloride 110 H Carbon Dioxide 22.7 Anion Gap 5 L BUN 42 H Creatinine 2.0 H Estim Creat Clear Calc 42.2 L eGFR 29 L BUN/Creatinine Ratio 21 H Glucose 231 H Calculated Osmolality 293 Calcium 8.8 Corrected Calcium 9.7 Phosphorus 3.1 Magnesium 1.8 Total Bilirubin 2.0 H AST 22 ALT 16 Alkaline Phosphatase 56 Total Protein 5.8 Albumin 2.9 L Globulin 2.9 Albumin/Globulin Ratio 1.0 L Misc Test Result Platelets confirmed Impressions Impression: Gastric varices left alone because of thrombocytopenia 1+ esophageal varices Outpatient follow-up Assessment & Plan A&P Narrative Sharonda Hopper is a 54-year-old female with a past medical history of primary biliary cholangitis, cirrhosis, severe thrombocytopenia (follows at cancer center), CKD (follows Dr. Neil), sleep apnea, and recurrent staph infections and necrotizing fasciitis who presents with chest discomfort, nausea, vomiting, and fever. Cardiology consulted for ACS rule-out given atypical chest discomfort and elevated troponins. #NSTEMI type II, demand ischemia #Hypertensive urgency #Atypical chest pain #Elevated troponins Presents with atypical chest pain that is to the back elevated troponins that peaked at 0.06 and now downtrending. EKG showed sinus tachycardia with nonspecific T wave abnormalities but unchanged from prior EKG approximately 1 week earlier. States that she follows up with Dr. Lima in [place] and has undergone echo without any reported abnormalities, no stress test or angiogram. Elevated troponins likely demand ischemia in setting of hypertensive urgency with max recorded BP of 184/66 as patient does not take any antihypertensives at home and had episode of epistaxis. Troponins down trended to within normal limits. A1c 7.3%. Echo on 01/06 showed EF 55-60%, grade 1 diastolic dysfunction, normal LV size and function; RVSP 45-50 mmHg with normal RV size and function, mild with Vmax 2.6 m/s, PG of 30 mmHg; no signs of pericarditis or any WMA. ? Poor surgical candidate given cirrhosis and severe thrombocytopenia ? Currently on propranolol 10 mg PO BID, consider uptitrating as needed as HR tolerates given mildly elevated BPs #Pericarditis ruled out Additionally, patient states that chest discomfort is worse when in laying position and improves when sitting and leaning forward. ESR and CRP noted to be within normal limits. Echo on 01/06 showed EF 55-60%, grade 1 diastolic dysfunction, normal LV size and function; RVSP 45-50 mmHg with normal RV size and function, mild with Vmax 2.6 m/s, PG of 30 mmHg; no signs of pericarditis or any WMA. #Sepsis secondary to UTI #Lactic acidosis #Severe thrombocytopenia #Hypomagnesemia #JULIUS on stage IIIb CKD #Cirrhosis 2/2 #Primary biliary cholangitis #Hyperbilirubinemia #Mild anemia Management of rest of the medical conditions as per primary team and other consultants. Thank you for the consult and allowing me to participate in the care of the patient. Cardiology will continue to follow. Hadley Aquino M.D. Interventional Cardiology Time Spent With Patient Time: Total time spent is greater than 50% in coordination of care (as documented) at patient's floor/unit and/or counseling patient:
--- NOTE | 2025-01-08 16:19 | PC.NURSE ---
Pt verbalized understanding of [address] Lang notified of BP 152/65 ok to still discharge. Dr. Lang notified of platelets 25 ok to still discharge. Pt verbalized feels safe and ready to go home. Dr. Montana called and ok to discharge. Dr. Ny called and ok to discharge.
== END 2025-01-08 15:20 | disposition home or self-care (01) | DRG 720 ==
LOC: SERX 01-05 03:57 → SERHOLD 01-05 04:37 → S2NX 01-05 15:20
PROVIDERS: Physician Assistant; Specialist; Student in an Organized Health Care Education/Training Program; Admitting Provider Internal Medicine; Emergency Provider Emergency Medicine; PCP Internal Medicine; Visit Provider Student in an Organized Health Care Education/Training Program
PROC: 0DJ08ZZ Inspection of Upper Intestinal Tract, Via Natural or Artificial Opening Endoscopic (ICD-10-PCS; CPT 43239; principal; 2025-01-06 17:30)
DX: A41.50 Gram-negative sepsis, unspecified (principal); N18.32 Chronic kidney disease, stage 3b; I12.9 Hypertensive chronic kidney disease with stage 1 through stage 4 chronic kidney disease, or unspecified chronic kidney disease; E78.5 Hyperlipidemia, unspecified; E11.22 Type 2 diabetes mellitus with diabetic chronic kidney disease; D73.1 Hypersplenism; K74.3 Primary biliary cirrhosis; D69.59 Other secondary thrombocytopenia; N39.0 Urinary tract infection, site not specified; I21.A1 Myocardial infarction type 2; E83.42 Hypomagnesemia; N17.9 Acute kidney failure, unspecified; D63.1 Anemia in chronic kidney disease; D63.8 Anemia in other chronic diseases classified elsewhere; E66.812 Obesity, class 2; Z87.891 Personal history of nicotine dependence; Z68.33 Body mass index [BMI] 33.0-33.9, adult; Z68.43 Body mass index [BMI] 50.0-59.9, adult; D61.818 Other pancytopenia; D84.9 Immunodeficiency, unspecified; E11.65 Type 2 diabetes mellitus with hyperglycemia; E86.1 Hypovolemia; E87.20 Acidosis, unspecified; G47.33 Obstructive sleep apnea (adult) (pediatric); G89.29 Other chronic pain; I16.0 Hypertensive urgency; I85.00 Esophageal varices without bleeding; K29.70 Gastritis, unspecified, without bleeding; K52.9 Noninfective gastroenteritis and colitis, unspecified; K76.0 Fatty (change of) liver, not elsewhere classified; K83.09 Other cholangitis; M1A.9XX0 Chronic gout, unspecified, without tophus (tophi); M72.6 Necrotizing fasciitis; R65.20 Severe sepsis without septic shock; I86.4 Gastric varices; T36.8X5A Adverse effect of other systemic antibiotics, initial encounter; Z79.4 Long term (current) use of insulin; R93.89 Abnormal findings on diagnostic imaging of other specified body structures; Z79.899 Other long term (current) drug therapy; Z86.14 Personal history of Methicillin resistant Staphylococcus aureus infection; N93.8 Other specified abnormal uterine and vaginal bleeding; Z99.81 Dependence on supplemental oxygen
CPT/HCPCS: 36415; 71045; 71250; 74176; 76705; 80053; 80061; 81001; 82575; 83036; 83605; 83690; 83735; 83880; 84100; 84145; 84439; 84443; 84484; 84540; 84703; 85025; 85610; 85652; 86140; 86308; 87040; 87077; 87086; 87186; 87400; 87634; 87651; 87811; 93005; 93306; 96361; 96365; 96366; 96367; 96372; 96375; 97161; 99291; J0692; J0696; J0744; J1200; J1815; J1885; J2270; J2470; J3475; J3490; J7030; J7050; J7120; A9270; J1920

== ENCOUNTER 2025-01-20 14:03 | Outpatient (RCR) | payer MEDICAID, SELFPAY | END 2025-01-26 23:59 | disposition home or self-care (01) | LOC: SCTC 14:03 | PROVIDERS: Referring Provider Nurse Practitioner Family; Visit Provider Nurse Practitioner Family | DX: D69.6 Thrombocytopenia, unspecified (principal); D73.1 Hypersplenism; E66.9 Obesity, unspecified; Z68.43 Body mass index [BMI] 50.0-59.9, adult; K74.3 Primary biliary cirrhosis | CPT/HCPCS: 99212; G0463 ==

== ENCOUNTER → 2025-01-24 | Outpatient (CLI) | payer MEDICAID, SELFPAY ==
[2025-01-24 10:57] LABS: Alanine Aminotransferase 16 U/L (10-49); Albumin, Serum 3.4 gm/dL (3.5-5.0); Albumin/Globulin Ratio 1.1 (1.2-2.2); Alkaline Phosphatase 62 U/L (46-116); Anion Gap 7 (7-16); Aspartate Amino Transferase 33 U/L (0-34); BUN/Creatinine Ratio 18 Ratio (12-20); Bilirubin,Total 1.8 mg/dL (0.3-1.2); Blood Urea Nitrogen 41 mg/dL (9-23); Calcium 9.1 mg/dL (8.3-10.6); Calcium (Corrected) 9.6 mg/dL (8.5-10.1); Carbon Dioxide 23.8 mMol/L (20.0-31.0); Chloride 112 mMol/L (98-107); Creatinine (Component) 2.3 mg/dL (0.6-1.3); Globulin 3.2 gm/dL (2.3-3.5); Glucose 128 mg/dL (74-106); Osmolality,Calculated 297 (275-295); Potassium 4.7 mMol/L (3.4-5.1); Sodium 143 mMol/L (136-145); Total Protein 6.6 gm/dL (5.7-8.2); eGFR 25 See Note
[2025-01-24 11:03] LABS: Ferritin 78 ng/mL (7.3-270.7); Iron 126 mcg/dL (50-170); Percent Iron Saturation 42 % (20-55); Total Iron Binding Capacity 298 mcg/dL (250-425); Unsaturated Iron Binding 172 (225-295)
[2025-01-24 11:04] LABS: Folate > 24.00 ng/mL (>5.38); Vitamin B12 1127 pg/mL (211-911)
[2025-01-24 11:34] LABS: Basophils % (Auto) 0 % (0-2.5); Eosinophils # (Auto) 0.1 Thou/mm3 (0.0-0.5); Eosinophils % (Auto) 4 % (0-10); Hematocrit 28.9 % (36.0-46.0); Hemoglobin 9.3 g/dL (12.0-16.0); Immature Granulocytes % (Auto) 1 % (0-0); Immature Granulocytes Auto 0.01 Thou/mm3 (0.00-0.00); Immature Reticulocyte Fraction 16.2 % (3.0-15.9); Lymphocytes # (Auto) 0.4 Thou/mm3 (1.0-4.8); Lymphocytes % (Auto) 26 % (10-50); Mean Corpuscular HGB Conc 32.2 g/dl (31.0-37.0); Mean Corpuscular Hemoglobin 32.1 pg (25.0-35.0); Mean Corpuscular Volume 100 fL (80-100); Monocytes # (Auto) 0.2 Thou/mm3 (0.0-0.8); Monocytes % (Auto) 12 % (0-12); Neutrophils % (Auto) 58 % (37-80); Nucleated Red Blood Cell % 0 /100 WBC (0); RDW Standard Deviation 55.6 fL (36.4-46.3); Reticulocyte % (Auto) 3.9 % (0.5-1.5); Reticulocyte Absolute Auto 114.3 Biln/L (25.0-75.0)
[2025-01-24 11:40] LABS: White Blood Count 1.7 Thou/mm3 (3.6-11.0)
[2025-01-24 11:41] LABS: Platelet Count 29 Thou/mm3 (140-440)
[2025-01-24 12:38] LABS: Slide Review Platelets confirmed
[2025-01-24 12:43] LABS: Path Review Blood Smear Sent to Pathologist
== END | disposition home or self-care (01) ==
LOC: SCTO 09:04
PROVIDERS: PCP Family Medicine; Referring Provider Nurse Practitioner Family; Visit Provider Nurse Practitioner Family
DX: D69.59 Other secondary thrombocytopenia (principal)
CPT/HCPCS: 36415; 80053; 82105; 82607; 82728; 82746; 83540; 83550; 85025; 85046

== ENCOUNTER 2025-02-09 10:08 | Outpatient (RCR) | payer MEDICAID, SELFPAY | END 2025-02-26 23:59 | disposition home or self-care (01) | LOC: SCTC 10:08 | PROVIDERS: PCP Family Medicine; Referring Provider Family Medicine; Visit Provider Nurse Practitioner Family | DX: D69.6 Thrombocytopenia, unspecified (principal); D73.1 Hypersplenism; D64.9 Anemia, unspecified; N93.9 Abnormal uterine and vaginal bleeding, unspecified | CPT/HCPCS: 99212; G0463 ==

== ENCOUNTER 2025-03-03 15:25 | Outpatient (RCR) | payer MEDICAID, SELFPAY | END 2025-03-28 23:59 | disposition home or self-care (01) | LOC: SCTC 15:25 | PROVIDERS: PCP Family Medicine; Referring Provider Family Medicine; Visit Provider Nurse Practitioner Family | DX: D69.6 Thrombocytopenia, unspecified (principal); D73.1 Hypersplenism; K74.60 Unspecified cirrhosis of liver; N93.8 Other specified abnormal uterine and vaginal bleeding; E11.9 Type 2 diabetes mellitus without complications; E66.9 Obesity, unspecified | CPT/HCPCS: 99212; G0463 ==

== ENCOUNTER 2025-03-25 18:22 | Inpatient (IN) | payer MEDICAID, SELFPAY ==
[2025-03-25 19:05] VITALS: BP 155/67; PULSE 108; RESP 20; TEMP 39.4; O2SAT 93; BMI 69.7
--- NOTE | 2025-03-25 19:13 | XR_ITS ---
Examination: PA chest single view TECHNIQUE: Upright PA chest single view Date and time: March 25, 2025 1942 hours INDICATIONS: Fever shortness of breath headache chest pain beginning 2 days ago. FINDINGS: Normal heart size Lungs are clear. The osseous structures are intact IMPRESSION: No active disease
--- NOTE | 2025-03-25 19:13 | EKG_ITS ---
[facility] Test Date: 2025-03-25 Pat Name: YAQUELIN STONE Department: Room: - Gender: Female Ivf Embryologist: : 1970 Requested By: Edvin Yao Order Number: [id number] Reading MD: Edvin Yao Measurements Intervals [place] Rate: 105 P: 24 WI: 133 QRS: -25 QRSD: 84 T: 75 QT: 303 QTc: 401 Interpretive Statements SINUS TACHYCARDIA WITH OCCASIONAL ECTOPIC PREMATURE COMPLEXES POSSIBLE ANTERIOR MYOCARDIAL INFARCTION , OF INDETERMINATE AGE [30 ms Q WAVE IN V3/V4, OR R < 0.2 mV IN V4] Compared to ECG 01/04/2025 22:25:02 Myocardial infarct finding now present Short WI interval no longer present T-wave abnormality no longer present /store/S0/[id number]/[id number].pdf
--- NOTE | 2025-03-25 19:16 | PD.EDRME ---
Rapid Medical Screening Exam [facility] Arrival date/time: 03/25/25 18:22 54F with history of cirrhosis 2/2 to PBC and NAFLD (follows Dr. 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 Gresham), CKD Stage III (follows Dr Neil), dysfunctional uterine bleeding, recurrent necrotizing fasciitis, diabetes mellitus type 2 and recurrent chest pain (follows Dr. Lima) presents to ED with several days of fevers/chills, JOSEPH, excess phlegm production, back pain, chest pain, and some bloody emesis. No gross ab pain. Chief Complaint: Fever Vital signs: Vital Signs Temperature 102.9 F H 03/25/25 19:05 Pulse Rate 108 H 03/25/25 19:05 Respiratory Rate 20 03/25/25 19:05 Blood Pressure 155/67 H 03/25/25 19:05 Pulse Oximetry (%) 93 L 03/25/25 19:05 Oxygen Delivery Method Room Air 03/25/25 19:05
[2025-03-25 19:42] LABS: Lactate (Lactic Acid) 2.4 mMol/L (0.4-2.0)
[2025-03-25 19:49] LABS: Basophils # (Auto) 0.0 Thou/mm3 (0.0-0.2); Basophils % (Auto) 1 % (0-2.5); Eosinophils # (Auto) 0.1 Thou/mm3 (0.0-0.5); Eosinophils % (Auto) 3 % (0-10); Hematocrit 27.8 % (36.0-46.0); Hemoglobin 9.5 g/dL (12.0-16.0); Immature Granulocytes Auto 0.02 Thou/mm3 (0.00-0.00); Lymphocytes # (Auto) 0.1 Thou/mm3 (1.0-4.8); Lymphocytes % (Auto) 7 % (10-50); Mean Corpuscular HGB Conc 34.2 g/dl (31.0-37.0); Mean Corpuscular Hemoglobin 32.5 pg (25.0-35.0); Mean Corpuscular Volume 95 fL (80-100); Monocytes # (Auto) 0.2 Thou/mm3 (0.0-0.8); Monocytes % (Auto) 9 % (0-12); Neutrophils # (Auto) 1.4 Thou/mm3 (1.8-7.7); Neutrophils % (Auto) 80 % (37-80); Nucleated Red Blood Cell # 0.00 Thou/mm3 (0.00-0.00); Nucleated Red Blood Cell % 0 /100 WBC (0); RDW Standard Deviation 53.8 fL (36.4-46.3); Red Blood Count 2.92 Miln/mm3 (4.00-5.20)
[2025-03-25 20:03] LABS: B-Type Natriuretic Peptide 103 pg/mL (0-100)
[2025-03-25 20:12] LABS: Alanine Aminotransferase 21 U/L (10-49); Albumin, Serum 3.4 gm/dL (3.5-5.0); Albumin/Globulin Ratio 1.0 (1.2-2.2); Alkaline Phosphatase 65 U/L (46-116); Anion Gap 11 (7-16); Aspartate Amino Transferase 30 U/L (0-34); BUN/Creatinine Ratio 12 Ratio (12-20); Bilirubin,Total 2.9 mg/dL (0.3-1.2); Blood Urea Nitrogen 40 mg/dL (9-23); Calcium 8.9 mg/dL (8.3-10.6); Calcium (Corrected) 9.4 mg/dL (8.5-10.1); Carbon Dioxide 18.7 mMol/L (20.0-31.0); Chloride 108 mMol/L (98-107); Creatinine (Component) 3.4 mg/dL (0.6-1.3); Estimated Creatinine Clearance 29.6 mL/min (>60); Globulin 3.3 gm/dL (2.3-3.5); Glucose 238 mg/dL (74-106); Lipase 85 U/L (12-53); Osmolality,Calculated 293 (275-295); Potassium 5.1 mMol/L (3.4-5.1); Procalcitonin 29.10 ng/ml (0.0-0.49); Sodium 138 mMol/L (136-145); Total Protein 6.7 gm/dL (5.7-8.2); Troponin I 0.027 ng/mL (0.0-0.045); White Blood Count 1.8 Thou/mm3 (3.6-11.0); eGFR 15 See Note
[2025-03-25 20:13] LABS: Platelet Count 15 Thou/mm3 (140-440)
[2025-03-25 20:31] LABS: Slide Review Platelets confirmed
[2025-03-25 21:26] LABS: Collection Type, Urine Clean Catch
[2025-03-25 21:46] VITALS: BP 151/59; PULSE 98; RESP 20; TEMP 37.9; O2SAT 97
--- NOTE | 2025-03-25 21:47 | PC.NURSE ---
RECEIVED PT FROM EVETTE MERAZ AT THIS TIME.
[2025-03-25 21:52] LABS: Bacteria,Urine 3+; Bilirubin,Urine Negative (Negative); Blood,Urine 2+ (Negative); Clarity,Urine Turbid (Clear/Hazy); Color,Urine Yellow (Lt Yel-Yel); Glucose, Urine Negative (Negative); Ketones,Urine Negative (Negative); Leukocyte Esterase,Urine Positive (Negative); Nitrite,Urine Negative (Negative); PH,Urine 5.5 (5.0-7.0); Protein,Urine 1+ (Neg - Trace); RBC,Urine 75 /hpf (0-3); Specific Gravity,Urine 1.018 (1.001-1.035); Squamous Epithelial Cell,Urine 30 /hpf (0-5); Transitional Epi Cells,Urine < 1 /hpf (0-5); Urobilinogen,Urine Negative mg/dL (0.0-1.0); WBC,Urine 79 /hpf (0-5)
[2025-03-25] MEDS: ONDANSETRON INJ 2 MG/ML INJ 2 ML 4 MG IV (21:57)
[2025-03-25] MEDS: SODIUM CHLORIDE 0.9% 1000 ML 1,000 ML 999 ML IV (21:59)
[2025-03-25] MEDS: cefTRIAXone/D5w 1gm IV premix 1 GM/50 ML BAG IV (22:00)
[2025-03-25 22:01] VITALS: TEMP 37.9
[2025-03-25] MEDS: ACETAMINOPHEN 500 MG TABLET PO (22:01)
--- NOTE | 2025-03-25 22:36 | EDNOTE_ITS ---
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 Gresham), CKD Stage III (follows Dr Neil), dysfunctional uterine bleeding, recurrent necrotizing fasciitis, diabetes mellitus type 2 and recurrent chest pain (follows Dr. Lima) presents to ED with several days of fevers/chills, JOSEPH, excess phlegm production, back pain, chest pain, and some bloody emesis. No gross ab pain. DR ROGEL MAIN ED EVALUATION: 54 y/o female with Hx of Thrombocytopenia, Hypertension, Cirrhosis, Colitis, Obesity, Diabetes Mellitus Type 2, and CKD Stage III presents to ED c/o 104.9F fever, chest pain, pounding headache, and lower back and hip pain x 1 day. Patient also reports chills, fever, sweats, shortness of breath, vomiting, and severe headache 2 days ago. She took Ibuprofen at home and reduced fever to 100.5F. Patient does is not treated with steroids for Thrombocytopenia, but reports an upcoming appointment with a new stallion manager on 04/20/2025 in [place]. Patient denies numbness, tingling, blurred vision or any other associated symptoms or aggravating factors. No modifying factors, no radiation, no migrati on. No other pain reported overall. Related Data Home Medications ?Medication ?Instructions ?Recorded ?Confirmed insulin glargine 100 unit/mL (3 35 unit subcut BID 11/1701/05/25 mL) subcutaneous pen (Basaglar KwikPen U-100 Insulin) ursodiol 300 mg capsule 300 mg PO TID 09/30/1801/05 hydrocodone 10 mg-acetaminophen 1 tab PO DAILY PRN Sabas n 01/27/20 01/05/25 325 mg tablet B-complex with vitamin C 1 tab PO QDAY 10/27/2301/05 ascorbic acid (vitamin C) 1,000 mg 1,000 mg PO DAILY 0 10/27/23 01/05/25 tablet (Vitamin C) atorvastatin 10 mg tablet 10 mg PO HS 10/27/23 5 cholecalciferol (vitamin D3) 25 25 mcg PO QDAY 4 01/05/25 mcg (1,000 unit) tablet (Vitamin D3) gabapentin 400 mg capsule 400 mg PO BID 10/27/2301/05 insulin aspart U-100 100 unit/mL 10 unit subcut TIDPC 10/27/23 01/05/25 (3 mL) subcutaneous pen propranolol 10 mg tablet 10 mg PO BID 10/27/23 tizanidine 2 mg capsule 2 mg PO HSPRN PRN Muscle [place] sm 10/27/23 11/19/23 diclofenac sodium 1 % topical gel 2 g topical .every 6 hr 01/05/25 01/05/25 ferrous sulfate 325 mg (65 mg 325 mg PO 2XD 01/05/25 0 01/05/25 iron) tablet (FeroSul) medroxyprogesterone 10 mg tablet 10 mg PO 3XD 01/05/25 01/05/25 semaglutide 0.25 mg or 0.5 mg (2 0.5 mg subcut .abdullahi [place] 01/05/25 01/05/25 mg/3 mL) subcutaneous pen injector (Ozempic) zinc sulfate 50 mg zinc (220 mg) 50 mg PO QDAY 5 01/05/25 capsule Previous Rx's ?Medication ?Instructions ?Recorded furosemide 20 mg tablet 20 mg PO DAILY Shortness of 01/08/25 Breath, Increased weight by 1-2kg in a day #7 tabs Allergies Allergy/AdvReac Type Severity Reaction Status Date / Time tramadol Allergy Severe Hives Verified 03/25/25 18:27 ciprofloxacin Allergy Mild Rash Verified 03/25/25 18:27 Review of Systems Review of Systems Systems Reviewed: All systems reviewed, normal except as documented Past Medical History Past Medical History CARDIAC: Positive Hypercholesterolemia and Hypertension GASTROINTESTINAL: Positive Gastrointestinal Disorders, Cirrhosis, Colitis and Obesity REPRODUCTIVE: Positive Previous Pregnancies MUSCULOSKELETAL: Positive Gout ENT: Positive Cataracts ENDOCRINE: Positive Endocrine Disorders and Diabetes Mellitus Type 2 HEMATOLOGIC: Positive Blood Disorders and Anemia PSYCHO/SOCIAL: Positive Anxiety OTHER HISTORY: Positive Blood Transfusions, MRSA and Chicken Pox Family History FAMILY HISTORY: Positive Family Cardiac Disorders and Family Surgery Surgical History SURGICAL: Positive Abdominal Surgery, Tubal Ligation and Section Social History SMOKING STATUS: Former smoker SECOND HAND EXPOSURE: Yes Past Medical History Comments PMH COMMENT: Thrombocytopenia Physical Exam Narrative Physical exam: GENERAL APPEARANCE: alert and oriented x 4, well-developed, well-nourished, no acute distress VITALS: All vitals were reviewed and the pulse ox is 97% on room air, which is normal according to my interpretation. HEENT: Normocephalic, atraumatic; pupils equal, round, reactive to light; EOMI; mucous membranes pink, moist; oropharynx clear NECK: Supple LUNGS: CTABL; no wheezes, no rales, no rhonchi HEART: Tachycardia, regular rhythm; normal S1, S2; no murmurs ABDOMEN: non distended; normal BS; soft, no tenderness, no guarding, no rebound; no masses, no organomegaly, no hernia, obese BACK: no CVA tenderness, tenderness to BL SI joints EXTREMITIES: atraumatic; no edema NEUROLOGIC: awake; alert and oriented x4; cranial nerves II-XII grossly intact; no focal sensory or motor deficits PSYCHIATRIC: appropriate mood and affect SKIN: warm, dry, normal color; no rashes Course Course Course Narrative: CXR is ordered for determining the etiology of shortness of breath. Quality Measures none Orders Category Date Time Status Admit to Inpatient Status Routine Admission 03/26/25 05:02 Active Patient Condition Routine Admission 03/26/25 05:01 Ordered Bedside Blood Glucose ACHS Care 03/26/25 05:06 Active Bedside Blood Glucose NOW Care 03/26/25 05:07 Active Bedside COVID-19 Antigen Test NOW Care 03/25/25 19:26 Completed Bedside Influenza A&B Antigen Test NOW Care 03/25/25 19:13 Completed COVID-19 Screening Questionnaire NOW Care 03/26/25 05:07 Active EKG (ED ONLY) *Do not use* NOW Care 03/25/25 19:13 Completed Insert IV NOW Care 03/25/25 19:13 Active Notify provider NEEDED Care 03/26/25 05:01 Active Sequential Compression Device QSHIFT Care 03/26/25 05:06 Active Strict Intake and Output Routine Care 03/26/25 05:03 Ordered Diet Carbohydrate Consistent Low Diet 03/26/[address] abdomen pelvis wo con Stat Exams 03/25/25 23:[address] lumbar spine wo con Stat Exams 03/25/25 23:04 Taken EKG (ED Only) Stat Exams 03/25/25 19:13 Draft US liver Stat Exams 03/26/25 05:12 Ordered XR chest 1V portable Stat Exams 03/25/25 19:13 Completed B-Type Natriuretic Peptide Stat Lab 03/25/25 19:24 Completed Blood Culture (Lab) Stat Lab 03/25/25 19:26 Received CBC AM DRAW Lab 03/27/25 05:00 Ordered CBC AM DRAW Lab 03/28/25 05:00 Ordered CBC AM DRAW Lab 03/29/25 05:00 Ordered CBC Routine Lab 03/26/25 05:05 Ordered CBC Stat Lab 03/25/25 19:24 Completed CMP [Comprehensive Metabolic Panel] AM DRAW Lab 03/27/25 05:00 Ordered CMP [Comprehensive Metabolic Panel] AM DRAW Lab 03/28/25 05:00 Ordered CMP [Comprehensive Metabolic Panel] AM DRAW Lab 03/29/25 05:00 Ordered Cocci Serology IgM with reflex to IgG [Cocci Serology, Lab 03/26/25 05:31 Ordered Unk History] Stat Comprehensive Metabolic Panel Routine Lab 03/26/25 05:05 Ordered Comprehensive Metabolic Panel Stat Lab 03/25/25 19:24 Completed Lactate (Lactic Acid) Stat Lab 03/25/25 19:24 Completed Lactic Acid, 3 HR Stat Lab 03/25/25 23:09 Completed Lipase Stat Lab 03/25/25 19:24 Completed Lipid Panel AM DRAW Lab 03/27/25 05:00 Ordered Lipid Panel AM DRAW Lab 03/28/25 05:00 Ordered Lipid Panel AM DRAW Lab 03/29/25 05:00 Ordered Magnesium AM DRAW Lab 03/27/25 05:00 Ordered Magnesium AM DRAW Lab 03/28/25 05:00 Ordered Magnesium AM DRAW Lab 03/29/25 05:00 Ordered Magnesium Routine Lab 03/26/25 05:05 Ordered Partial Thromboplastin Time Routine Lab 03/27/25 05:06 Ordered Phosphorous AM DRAW Lab 03/27/25 05:00 Ordered Phosphorous AM DRAW Lab 03/28/25 05:00 Ordered Phosphorous AM DRAW Lab 03/29/25 05:00 Ordered Phosphorous Routine Lab 03/27/25 05:05 Ordered Procalcitonin Stat Lab 03/25/25 19:24 Completed Prothrombin Time with INR Routine Lab 03/27/25 05:06 Ordered Troponin I Stat Lab 03/25/25 19:24 Completed Urinalysis Stat Lab 03/25/25 21:00 Completed Urinalysis Stat Lab 03/26/25 05:07 Ordered Urine Culture Stat Lab 03/26/25 05:06 Ordered Acetaminophen Tab [Tylenol ES Tab] Med 03/25/25 19:14 Discontinued 500 mg PO X1 ONE Acetaminophen Tab [Tylenol Tab] Med 03/26/25 05:01 Active 650 mg PO Q6H PRN Acetaminophen Tab [Tylenol Tab] Med 03/26/25 05:01 Active 650 mg PO Q6H PRN Dextrose 50% Syr [D50w Syringe Abboject] Med 03/26/25 05:06 Active 25 ml IV Q15MIN PRN Dextrose 50% Syr [D50w Syringe Abboject] Med 03/26/25 05:06 Active 50 ml IV Q15MIN PRN Glucagon Inj Med 03/26/25 05:06 Active 1 mg IM Q15MIN PRN HYDROmorphone INJ [Dilaudid Inj] Med 03/26/25 05:01 Pending 1 mg IVP Q4H PRN INSULIN LISPRO (AdmeLOG) [HumaLOG] Med 03/26/25 07:30 Active See Protocol SC AC Insulin Glargine Inj [Lantus Inj] Med 03/26/25 21:00 Active 10 unit SC HS Lactulose Syrup [Enulose Syrup] Med 03/26/25 05:12 Discontinued 10 gm PO X1 ONE Lidocaine 5% Patch Med 03/26/25 05:17 Discontinued 1 patch TOP X1 ONE Morphine Inj Med 03/26/25 01:39 Discontinued 5 mg IVP X1 ONE Octreotide Acet Inj [SandoSTATIN Inj] Med 03/25/25 19:13 Discontinued 50 mcg IV X1 ONE Ondansetron Inj [Zofran Inj] Med 03/25/25 19:13 Discontinued 4 mg IV X1 ONE Ondansetron Inj [Zofran Inj] Med 03/26/25 05:01 Active 4 mg IVP Q6H PRN Ondansetron Inj [Zofran Inj] Med 03/26/25 01:40 Discontinued 4 mg IVP X1 ONE Pantoprazole Inj [Protonix Inj] Med 03/26/25 09:00 Active 40 mg IVP Q12HR Pantoprazole Inj [Protonix Inj] Med 03/25/25 19:13 Discontinued 80 mg IVP X1 ONE Pharmacy Renal Dose Adjustment Med 03/26/25 05:12 Pending 1 each XX PRN PRN Piper/Tazo 2.25 gm [Zosyn] Med 03/26/25 05:15 Pending 2.25 gm in 50 ml IV Q6H Piper/Tazo 2.25 gm [Zosyn] Med 03/26/25 05:30 Active 2.25 gm in 50 ml IV X1 Senna [Senokot] Med 03/26/25 05:01 Active 1 tab PO BID PRN Sodium Chloride 0.9% 1000 ml [Ns] 1,000 ml Med 03/25/25 19:13 Discontinued IV 999 mls/hr cefTRIAXone/D5w 1gm IV premix [Rocephin/D5w 1gm IV Med 03/25/25 19:18 Discontinued premix] 1 gm in 50 ml IV X1 oxyCODONE/APAP 5/325 [Percocet 5/325] Med 03/26/25 05:01 Active 1 tab PO Q6H PRN Code Status Routine Oth 03/26/25 05:01 Ordered Oxygen Delivery PRN RT 03/26/25 05:01 Active Vital Signs Vital signs: Vital Signs Temperature 102.9 F H 03/25/25 19:05 Pulse Rate 108 H 03/25/25 19:05 Respiratory Rate 20 03/25/25 19:05 Blood Pressure 155/67 H 03/25/25 19:05 Pulse Oximetry (%) 93 L 03/25/25 19:05 Oxygen Delivery Method Room Air 03/25/25 19:05 Fever MDM Narrative MDM Narrative:: Scribe Attestation: Lisa Arteaga am scribing for and in the presence of Dr. Rogel. Provider Notation: Although this document has been carefully reviewed, there may still be some phonetic and other typographical errors.? These errors are purely grammatical due to imperfections in the software program and should not be construed in any way to? compromise the substance of the patient's medical care during this visit. Urine is contaminated therefore unable to interpret properly. Patient data External records reviewed:: [facility] previous records (Reviewed prior ED records from 01/04/25. Patient was seen for Acute kidney injury superimposed on CKD.) Clinical information provided by:: patient Social determinants that could affect healthcare access:: none Patient has the following chronic illnesses:: Hypercholesterolemia, Hypertension, Cirrhosis, Colitis, Obesity, Gout, Cataracts, Diabetes Mellitus Type 2, Anemia, Thrombocytopenia, Anxiety, CKD Stage III How is presenting disease/condition affected by chronic disease/condition?: exacerbated by Evaluation data The following diagnostics were reviewed and interpreted by me:: lab results, radiology exam(s) and EKG tracing(s) (1927: EKG manual reading, my interpretation: sinus tachycardia, rate: 105 bpm, Q-wave in III and aVF, poor R- wave progression, occasional PVC, no acute ischemic changes.) Lab and/or radiology exams considered but not ordered:: None Interpretation Summary: RADIOLOGY Chest X-Ray: Patient: YAQUELIN STONE. Record#: [id number] Birthdate: 1970 Age/Sex: 54 / F Location: [facility] Attending Dr: Ordering Physician: Edvin Yao PA-C Date of Service: 03/25/25 Procedure(s): XR chest 1V portable Accession Number(s): [id number] cc: Franko Aguilar MD; Gustavo Alfonso MD; Edvin Yao PA-C~ Examination: PA chest single view TECHNIQUE: Upright PA chest single view Date and time: March 25, 2025 1942 hours INDICATIONS: Fever shortness of breath headache chest pain beginning 2 days ago. FINDINGS: Normal heart size Lungs are clear. The osseous structures are intact IMPRESSION: No active disease Dictated By: Gustavo Alfonso MD Signed By: <Electronically signed by Gustavo Alfonso MD in OV> 03/25/252032 Abdomen/Pelvis CT: CT scan of the abdomen and pelvis without intravenous contrast (axial sections with sagittal and coronal reformats) March 26, 2025 0049 hours Clinical History: sepsis Comparison: None Findings: The lung bases are clear. The liver demonstrates surface nodularity, suggestive of cirrhosis. There are multiple collaterals in the upper gastroesophageal region. Gallbladder is surgically absent. There is a stent within the distal common bile duct . There is moderate splenomegaly. The pancreas, kidneys and adrenals are unremarkable on this noncontrast study. No evidence of bowel obstruction. The appendix is within normal limits . There is no mesenteric or retroperitoneal adenopathy. The urinary bladder is incompletely distended at the time of examination . Uterus and adnexa are unremarkable. There are multiple colonic diverticula without evidence of diverticulitis. There is no free fluid or free a ir.Degenerative changes are identified in the spine. Impression: No evidence of acute intra-abdominal or pelvic pathology. Findings suggestive of cirrhosis of liver with portal hypertension. Other findings as described above. Report Electronically Signed By: Rosa Maher 03/26/2025 3:15:17 AM [EST] L-Spine CT: CT scan of the lumbar spine without intravenous contrast (axial sections with sagittal and coronal reformats) March 26, 2025 0052 hours Clinical History: low back pain, sacroiliac joint pain, fever Comparison: No prior study is available for comparison. Findings: There is no fracture or subluxation.Degenerative changes are noted in the form of multilevel marginal osteophytes, reduced disc spaces and facet arthropathy, without spinal canal or neural foraminal stenosis. Vacuum phenomenon is seen at the T10-L1 level. Degenerative changes are noted at the sacroiliac joints in the form of small periarticular osteophytes and subchondral sclerosis. The soft tissues are unremarkable. Impression: No evidence of fracture, subluxation or significant soft tissue injury. Mild degenerative changes as described. Report Electronically Signed By: Rosa Maher 03/26/2025 3:15:27 AM [EST] Medications / Prescriptions Medications or Prescriptions considered but not ordered:: None Medication administrations:: Medication Administration History Acetaminophen (Acetaminophen 325 Mg Tablet) 650 mg PO Q6H PRN PRN Reason: Fever >101.5 Stop: 04/25/25 05:00 Acetaminophen (Acetaminophen 325 Mg Tablet) 650 mg PO Q6H PRN PRN Reason: PAIN SCALE 1-3 (mild Stop: 04/25/25 05:00 Dextrose (Dextrose 50%-Water Inj 50 Ml Syringe) 25 ml IV Q15MIN PRN PRN Reason: BG 50-70 responsive npo pt Stop: 04/25/25 05:05 Dextrose (Dextrose 50%-Water Inj 50 Ml Syringe) 50 ml IV Q15MIN PRN PRN Reason: BG <50 OR BG <70 & pt unresponsive Stop: 04/25/25 05:05 Glucagon (Glucagon Inj 1 Mg Vial) 1 mg IM Q15MIN PRN PRN Reason: BG <70, and no IV access Hydromorphone HCl (Hydromorphone Inj 2 Mg/Ml Vial) 1 mg IVP Q4H PRN PRN Reason: PAIN Stop: 03/31/25 05:00 Piperacillin/Tazobactam/Dextrose (Zosyn) 2.25 gm in 50 mls @ 100 mls/hr IV Q6H SHERYL Stop: 04/02/25 05:14 Piperacillin/Tazobactam/Dextrose (Zosyn) 2.25 gm in 50 mls @ 100 mls/hr IV X1 ONE Stop: 03/26/25 05:59 Insulin Glargine (Insulin Glargine (Lantus) 5 Unit/0.05 Ml (Per 5 Units)) 10 unit SC [facility] Stop: 04/25/25 20:59 Insulin Human Lispro (Insulin Lispro (Admelog) 1 Unit/0.01 Ml Unit) 0 unit SC AC SHERYL; Protocol Stop: 04/25/25 07:29 Ondansetron HCl (Ondansetron Inj 2 Mg/Ml Inj 2 Ml) 4 mg IVP Q6H PRN; Protocol PRN Reason: NAUSEA OR VOMITING Stop: 04/25/25 05:00 Oxycodone/Acetaminophen (Oxycodone/Apap 5/325 Tablet) 1 tab PO Q6H PRN PRN Reason: PAIN SCALE 4-6 (Moderate Stop: 03/31/25 05:00 Pantoprazole Sodium (Pantoprazole Inj 40 Mg Vial) 40 mg IVP Q12HR SHERYL Stop: 04/25/25 08:59 Pharmacy Consult (Pharmacy Renal Dose Adjustment 1 Ea) 1 each XX PRN PRN PRN Reason: CONSULT Stop: 04/25/25 05:11 Sennosides (Senna Tablet) 1 tab PO BID PRN; Protocol PRN Reason: CONSTIPATION Stop: 04/25/25 05:00 Discontinued Medications Acetaminophen (Acetaminophen 500 Mg Tablet) 500 mg PO X1 ONE Stop: 03/25/25 19:15 Last Admin: 03/25/25 22:01 Dose: 500 mg Documented By: CVL Sodium Chloride (Ns) 1,000 mls @ 999 mls/hr IV .Q1H1M ONE Stop: 03/25/25 20:13 Last Infusion: 03/25/25 23:02 Dose: Infused Documented By: Admin: 03/25/25 21:59 Dose: 999 mls/hr Documented By: CVL Ceftriaxone Sodium/Dextrose (Rocephin/D5w 1gm Iv Premix) 1 gm in 50 mls @ 100 mls/hr IV X1 ONE Stop: 03/25/25 19:47 Last Infusion: 03/25/25 22:44 Dose: Infused Documented By: Admin: 03/25/25 22:00 Dose: 100 mls/hr Documented By: CVL Lactulose (Lactulose Syrup 20 Gm/30 Ml Udc) 10 gm PO X1 ONE; Protocol Stop: 03/26/25 05:13 Lidocaine (Lidocaine 5% 1 Patch) 1 patch TOP X1 ONE Stop: 03/26/25 05:18 Morphine Sulfate (Morphine Sulf Inj 10 Mg/Ml Vial) 5 mg IVP X1 ONE Stop: 03/26/25 01:40 Last Admin: 03/26/25 02:17 Dose: 5 mg Documented By: CVL Octreotide Acetate (Octreotide Acet Inj 50 Mcg/Ml Vial) 50 mcg IV X1 ONE Stop: 03/25/25 19:14 Last Admin: 03/25/25 23:03 Dose: Not Given Documented By: CVL Non-Admin Reason: Change of Condition Ondansetron HCl (Ondansetron Inj 2 Mg/Ml Inj 2 Ml) 4 mg IV X1 ONE; Protocol Stop: 03/25/25 19:14 Last Admin: 03/25/25 21:57 Dose: 4 mg Documented By: CVL Ondansetron HCl (Ondansetron Inj 2 Mg/Ml Inj 2 Ml) 4 mg IVP X1 ONE; Protocol Stop: 03/26/25 01:41 Last Admin: 03/26/25 02:15 Dose: 4 mg Documented By: CVL Pantoprazole Sodium (Pantoprazole Inj 40 Mg Vial) 80 mg IVP X1 ONE Stop: 03/25/25 19:14 Last Admin: 03/25/25 23:03 Dose: Not Given Documented By: CVL Non-Admin Reason: Change of Condition See above Consultations Consultation(s) initiated? (list below): Yes Consultation #1 (Physician, Specialty, Details): Discussed with Dr. Dominguez for admission. Reviewed the patient?s HPI, PMHx, lab and/or radiology results. Discussed treatment plan. Will consult an admission to the hospitalist. Time: 03:57 Diagnosis Fever Differential Diagnosis: fever of unknown origin, gastroenteritis, community acquired pneumonia, pyelonephritis, viral infection, sepsis and influ keny Most likely diagnosis given after review of the tests above:: Sepsis, Thrombocytopenia, Neutropenia Admission Indicated Admission indicated?: indicated Explain why admission is indicated or not indicated:: Sepsis, Thrombocytopenia, Neutropenia Admission Request Was there a request for admission?: Yes Admission Attestation Admission request attestation: Discussed case with [] from Hospitalist service regarding admission. Discussed patients ED course, exam findings, labs, and radiology results. The Hospitalist [agrees,declines] to accept the patient for admission. Disposition Plan Disposition Plan: Admit Discharge Plan Plan Patient Disposition: Admit Acute Care w/in Hospital Prescriptions/Referrals Prescriptions/Med Rec: No Action hydrocodone-acetaminophen 10-325 mg tablet 1 tab PO DAILY PRN (Reason: Pain) Patient Comments: TAKE ONE TABLET BY MOUTH THREE TIMES DAILY NEEDED FOR PAIN Rx Instructions: 1-2 tabs ursodiol 300 mg Capsule 300 mg PO TID insulin glargine [Basaglar KwikPen U-100 Insulin] 100 unit/mL (3 mL) Insulin Pen 35 unit SUBCUT BID gabapentin 400 mg capsule 400 mg PO BID Patient Comments: TAKE ONE CAPSULE BY MOUTH TWICE DAILY FOR NERVE PAIN propranolol 10 mg tablet 10 mg PO BID Patient Comments: TAKE ONE TABLET BY MOUTH TWICE DAILY FOR BLOOD PRESSURE atorvastatin 10 mg tablet 10 mg PO HS Patient Comments: TAKE ONE TABLET BY MOUTH EVERY DAY FOR CHOLESTEROL cholecalciferol (vitamin D3) [Vitamin D3] 25 mcg (1,000 unit) Tablet 25 mcg PO QDAY insulin aspart U-100 100 unit/mL (3 mL) Insulin Pen 10 unit SUBCUT TIDPC Rx Instructions: TID after meals B-complex with vitamin C Tablet 1 tab PO QDAY ascorbic acid (vitamin C) [Vitamin C] 1,000 mg Tablet 1,000 mg PO DAILY tizanidine 2 mg capsule 2 mg PO HSPRN PRN (Reason: Muscle Spasm) Patient Comments: TAKE ONE CAPSULE BY MOUTH TWICE DAILY NEEDED FOR MUSCLE SPASMS Rx Instructions: 1-2 tabs Ozempic 0.25 mg or 0.5 mg (2 mg/3 mL) pen injector 0.5 mg SUBCUT .abdullahi week Patient Comments: INJECT 0.5 MG SUBCUTANEOUSLY EVERY WEEK FOR DIABETES ferrous sulfate [FeroSul] 325 mg (65 mg iron) tablet 325 mg PO 2XD Patient Comments: TAKE ONE TABLET BY MOUTH TWICE DAILY WITH ORANGE JUICE diclofenac sodium 1 % gel 2 g TOPICAL .every 6 hr Patient Comments: APPLY TWO GRAM EXTERNALLY EVERY 6 HOURS NEEDED FOR PAIN medroxyprogesterone 10 mg tablet 10 mg PO 3XD Rx Instructions: 3 tablets daily zinc sulfate 50 mg zinc (220 mg) Capsule 50 mg PO QDAY furosemide 20 mg tablet 20 mg PO DAILY Qty: 7 0RF Patient Comments: TAKE ONE TABLET BY MOUTH EVERY MORNING A DIURETIC Referrals: Franko Aguilar MD [Primary Care Provider] - In 1 week Problem List Clinical Impression: Sepsis, Thrombocytopenia, Neutropenia Patient/Caregiver Discharge Instructions Print Language: [place]serratian Stand Alone Forms: Lucie Award Info., Patient Portal Info Letter
[2025-03-25 22:39] LABS: Reflex Lactate? Y
[2025-03-25 22:49] VITALS: TEMP 37.7
[2025-03-25 22:50] VITALS: BP 132/51; PULSE 97; RESP 16; TEMP 37.7
--- NOTE | 2025-03-25 23:04 | XR_ITS ---
Examination: CT lumbar spine, without contrast. 2-D sagittal reconstructions. 2-D coronal reconstructions. 3-D reconstructions. Date and time of exam:March 26, 2025, 12:52 AM INDICATIONS: Onset low back pain this week CTDI: vol (mGy):74 DLP: (mGycm):2022 Technique: Multiple 1.25 mm axial sections of the lumbar spine without intravenous contrast have been obtained. 2-D sagittal and coronal reconstructions have been obtained. 3-D reconstructions have been obtained. Low dose protocols were performed. One or more of the following dose reduction techniques were used; automated exposure control, adjustment of the mA and/or KV according to patient size, use of iterative reconstruction technique. Findings: Prominent osteopenia. Adequate alignment lumbar vertebral bodies. No lumbar vertebral body compression fracture Moderate degenerative disc disease T12-L1 L5-S1 6 mm central lumbar disc bulge L4-L5 5 mm central lumbar disc bulge IMPRESSION: No lumbar fracture L5-S1 6 mm simple lumbar disc bulge L4-L5 5 mm on the lumbar disc bulge
--- NOTE | 2025-03-25 23:04 | XR_ITS ---
Examination: CT abdomen and pelvis without contrast. Coronal 3-D reconstructions. Sagittal 2-D reconstructions. Date and time of exam:March 26, 2025, 0049 hours Comparison January 05, 2025. INDICATIONS: Sepsis alert today with abdominal pain. CTDI: vol (mGy): 25. DLP: (mGycm): 1404. Technique: Axial images of the abdomen have been obtained, 3 mm slice thickness Intravenous contrast material has not been administered. Low dose protocols were performed. One or more of the following dose reduction techniques were used; automated exposure control, adjustment of the mA and/or KV according to patient size, use of iterative reconstruction technique. Findings: Cirrhosis, liver is irregular in contour and no focal liver lesions Massive splenomegaly Absent gallbladder No pancreatic mass Portosystemic collateral vessels medial to the spleen Aorta normal size No hydronephrosis Normal appendix No bowel obstruction Colonic diverticulosis, no diverticulitis Bladder intact IMPRESSION: Cirrhosis Massive splenomegaly Portal hypertension
[2025-03-25 23:24] LABS: Lactic Acid, 3 HR 1.5 mMol/L (0.4-2.0)
[2025-03-25 23:56] LABS: HIV (1&2) Antibody Rapid Non-Reactive
[2025-03-26] VITALS (15 sets, daily range): BP systolic 132–163; BP diastolic 50–75; PULSE 78–91; RESP 16–20; TEMP 36.6–37.8; O2SAT 92–100
--- NOTE | 2025-03-26 01:35 | PC.NURSE ---
PT BEEN C/O LOWER BACK PAIN, DR. WATT AWARE AND NEW ORDER GIVEN AND CARRIED OUT.
[2025-03-26] MEDS: ONDANSETRON INJ 2 MG/ML INJ 2 ML 4 MG IVP (02:15)
[2025-03-26] MEDS: MORPHINE SULF INJ 10 MG/ML VIAL 5 MG IVP (02:17)
--- NOTE | 2025-03-26 03:15 | PRELIM_ITS ---
CT scan of the abdomen and pelvis without intravenous contrast (axial sections with sagittal and coronal reformats) March 26, 2025 0049 hours Clinical History: sepsis Comparison: None Findings: The lung bases are clear. The liver demonstrates surface nodularity, suggestive of cirrhosis. There are multiple collaterals in the upper gastroesophageal region. Gallbladder is surgically absent. There is a stent within the distal common bile duct . There is moderate splenomegaly. The pancreas, kidneys and adrenals are unremarkable on this noncontrast study. No evidence of bowel obstruction. The appendix is within normal limits . There is no mesenteric or retroperitoneal adenopathy. The urinary bladder is incompletely distended at the time of examination . Uterus and adnexa are unremarkable. There are multiple colonic diverticula without evidence of diverticulitis. There is no free fluid or free air.Degenerative changes are identified in the spine. Impression: No evidence of acute intra-abdominal or pelvic pathology. Findings suggestive of cirrhosis of liver with portal hypertension. Other findings as described above. Report Electronically Signed By: Rosa Maher 03/26/2025 3:15:17 AM [EST]
--- NOTE | 2025-03-26 03:15 | PRELIM_ITS ---
CT scan of the lumbar spine without intravenous contrast (axial sections with sagittal and coronal reformats) March 26, 2025 0052 hours Clinical History: low back pain, sacroiliac joint pain, fever Comparison: No prior study is available for comparison. Findings: There is no fracture or subluxation.Degenerative changes are noted in the form of multilevel marginal osteophytes, reduced disc spaces and facet arthropathy, without spinal canal or neural foraminal stenosis. Vacuum phenomenon is seen at the T10-L1 level. Degenerative changes are noted at the sacroiliac joints in the form of small periarticular osteophytes and subchondral sclerosis. The soft tissues are unremarkable. Impression: No evidence of fracture, subluxation or significant soft tissue injury. Mild degenerative changes as described. z Report Electronically Signed By: Rosa Maher 03/26/2025 3:15:27 AM [EST]
--- NOTE | 2025-03-26 05:12 | XR_ITS ---
Examination: Abdomen sonogram, Limited Date and time of exam: March 18, 2025 0757 hours INDICATIONS: Elevated total bilirubin on laboratory examination today Technique: Real-time bourgeois scale transabdominal sonographic images of the upper abdomen obtained. Findings: Absent gallbladder Common bile duct 0.6 cm no stones Pancreatic head 3.2 cm Liver 14.2 cm irregular contour Normal hepatopedal portal venous flow Patent IVC IMPRESSION: Normal common bile duct, no common bile duct stones Cirrhosis, no focal liver lesions
--- NOTE | 2025-03-26 05:18 | PD.RESHP ---
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 Gresham and going to follow new tiger machine operator), CKD Stage III (follows Dr Neil), dysfunctional uterine bleeding, recurrent necrotizing fasciitis, diabetes mellitus type 2 and recurrent chest pain (follows Dr. Lima) presented to the ED on 03/26/2025 chief complaint of recurrent episodes of fever/chills spiking up to 104. She reported that she started having fever since Friday and she took ibuprofen which only relieved it partially. She also had associated headache and pain in the ribs due to episodes of vomiting x 2. She reported the vomitus contained digested food particles with mild frothy phlegm. She had nosebleeding which she said might have contributed to her frothy phlegm. She also reported to have some back pain. This morning, she noticed that she had another fever spike of 101 when she took ibuprofen however fever went up to 104.9 when she decided to come to the ER. She reported that she visited content management specialist and initially dose of Lasix was increased due to fluid overload and able but the dose was reduced due to decreasing kidney functions by content management specialist, Dr. Neil. Of note she reported that she had a CT abdomen with contrast on Friday as she is possibly getting a procedure similar to TIPS recommended by GI specialist for her liver cirrhosis. She is also due for appointment to follow-up with a new tiger machine operator for thrombocytopenia and neutropenia recommended by tiger machine operator Dr. Gresham. She denied any burning or dysuria. She reported to have mild chest discomfort rated as 2/10. In the ED, patient was hypertensive blood pressure 155/67, heart rate 108, respiratory rate 20 and febrile with 102.9. She was saturating well on room air. Labs were significant for pancytopenia with white count 1.8, hemoglobin 9.5, platelet count 15. Chemistry panel showed sodium 138, potassium 5.1. Non-anion gap metabolic acidosis. Bicarb 18.7. Elevated kidney functions with BUN 40 and creatinine 3.4. GFR 15. Blood glucose 238. Lactic acid 1.5. T. bili 2.9. BNP 103. Lipase was 85. Procalcitonin 29.10 urinalysis was contaminated therefore repeated. Based on first urinalysis patient does have proteinuria, blood, RBC, WBC, squamous epithelial cells and bacteria. HIV negative. Cocci serology ordered. Chest x-ray showed no acute pathology. EKG showed sinus rhythm with frequent PVCs. QTc 401. CT abdomen pelvis without contrast showed no evidence of intra abdominal pathology. Liver cirrhosis with portal hypertension seen. CT lumbar spine showed no evidence of fracture. Degenerative changes only. Sepsis alert was initiated. Blood cultures were sent. In the ED, patient received Tylenol 500 mg p.o. x 1, normal saline 1 L x 1, Rocephin 1 g x 1, morphine 5 mg IV x 1, octreotide 50 mcg x 1, Zofran 4 mg x 2 and Protonix 80 mg IV x 1. Blood cultures were ordered. Of note, patient was admitted previously for bacteremia in December 2024. She did had an EGD in December which showed varices which were not banded. PMH: As mentioned above SHX: , multiple I&D for necrotizing fasciitis secondary to MRSA infection, recent hysteroscopy with biopsy. Social history: Former smoker quit in 2015, occasional alcohol use, denies any illicit drug use. Allergies: Tramadol gives hives, hydroxyzine gives hives Home medications: Gabapentin, propranolol, ursodiol, Ozempic, Basaglar, atorvastatin, aspart insulin, furosemide, Medroxyprogesteron, vitamin D, ferrous sulfate, Nephro-Kathrin, vitamin C, zinc, colchicine. Patient is admitted for further workup and management of sepsis likely possible source urine in the setting of immunocompromised state. Review of Systems Review of Systems Systems Reviewed: All systems reviewed, normal except as documented Past Medical History Past Medical History CARDIAC: Positive Hypercholesterolemia and Hypertension GASTROINTESTINAL: Positive Gastrointestinal Disorders, Cirrhosis, Colitis and Obesity REPRODUCTIVE: Positive Previous Pregnancies MUSCULOSKELETAL: Positive Gout ENT: Positive Cataracts ENDOCRINE: Positive Endocrine Disorders and Diabetes Mellitus Type 2 HEMATOLOGIC: Positive Blood Disorders and Anemia PSYCHO/SOCIAL: Positive Anxiety OTHER HISTORY: Positive Blood Transfusions, MRSA and Chicken Pox Family History FAMILY HISTORY: Positive Family Cardiac Disorders and Family Surgery Surgical History SURGICAL: Positive Abdominal Surgery, Tubal Ligation and Section Social History SMOKING STATUS: Former smoker SECOND HAND EXPOSURE: Yes Past Medical History Comments PMH COMMENT: Thrombocytopenia Exam Vital Signs Temp Pulse Resp BP Pulse Ox O2 Del Method 99.0 F 85 18 152/64 H 97 Room Air 03/26/25 04:22 03/26/25 04:22 03/26/25 04:22 03/26/25 04:22 03/26/25 04:22 03/26/25 04:22 Narrative Exam GENERAL APPEARANCE: AxOx4, obese female in no acute distress. HEENT: NC, AT. MMM. EOMI, clear conjunctiva, oropharynx clear. NECK: Supple without lymphadenopathy. No stiffness or restricted ROM. HEART: Regular rate and regular rhythm, normal S1/S2, no m/r/g LUNGS: CTAB, moving air well. No crackles or wheezes are heard. ABDOMEN: Soft, nontender, nondistended with good bowel sounds heard. BACK: No CVAT, no obvious deformity. Mild sacroiliac pain EXTREMITIES: Without cyanosis, clubbing or edema. NEUROLOGICAL: Grossly nonfocal. Alert and oriented, moving all 4 extremities. CN not formally tested but appear grossly intact. Observed to ambulate with normal gait. Skin: Warm and dry without any rash. Psych: Appropriate mood and affect Results: Labs 03/26/25 05:48 03/26/25 05:48 Labs: Short CBC 03/25/25 Range/Units 19:24 WBC 1.8 L (3.6-11.0) Thou/mm3 Hgb 9.5 L (12.0-16.0) g/dL Hct 27.8 L (36.0-46.0) % Plt Count 15 L* (140-440) Thou/mm3 BMP 03/25/25 19:24 Sodium 138 Potassium 5.1 Chloride 108 H Carbon Dioxide 18.7 L BUN 40 H Creatinine 3.4 H Glucose 238 H Calcium 8.9 Cardiac Enzymes 03/25/25 Range/Units 19:24 Troponin I 0.027 (0.0-0.045) ng/mL Liver Function 03/25/25 Range/Units 19:24 Total Bilirubin 2.9 H (0.3-1.2) mg/dL AST 30 (0-34) U/L ALT 21 (10-49) U/L Alkaline Phosphatase 65 (46-116) U/L Albumin 3.4 L (3.5-5.0) gm/dL Urine 06/27/25 Range/Units 21:00 Urine Color Yellow (Lt Yel-Yel) Urine Clarity Turbid A (Clear/Hazy) Urine pH 5.5 (5.0-7.0) Ur Specific [place] 1.018 (1.001-1.035) Urine Protein 1+ A (Neg - Trace) Urine Glucose (UA) Negative (Negative) Quality Measures Quality Measures VTE prophylaxis (SCDs) Medications Home Medications and Allergies Home Medications ?Medication ?Instructions ?Recorded ?Confirmed ?Type insulin glargine 100 unit/mL (3 35 unit subcut BID 09/30/18 01/05/25 History mL) subcutaneous pen (Basaglar KwikPen U-100 Insulin) ursodiol 300 mg capsule 300 mg PO TID 09/30/18 01/05/25 History hydrocodone 10 mg-acetaminophen 1 tab PO DAILY PRN Pain 01/27/20 01/05/25 History 325 mg tablet B-complex with vitamin C 1 tab PO QDAY 10/27/23 01/05/25 History ascorbic acid (vitamin C) 1,000 mg 1,000 mg PO DAILY 10/27/23 01/05/25 History tablet (Vitamin C) atorvastatin 10 mg tablet 10 mg PO HS 10/27/23 01/05/25 History cholecalciferol (vitamin D3) 25 25 mcg PO QDAY 10/27/23 01/05/25 History mcg (1,000 unit) tablet (Vitamin D3) gabapentin 400 mg capsule 400 mg PO BID 10/27/23 01/05/25 History insulin aspart U-100 100 unit/mL 10 unit subcut TIDPC 10/27/23 01/05/25 History (3 mL) subcutaneous pen propranolol 10 mg tablet 10 mg PO BID 10/27/23 01/05/25 History tizanidine 2 mg capsule 2 mg PO HSPRN PRN Muscle Spasm 10/27/23 11/19/23 History diclofenac sodium 1 % topical gel 2 g topical .every 6 hr 01/05/25 01/05/25 History ferrous sulfate 325 mg (65 mg 325 mg PO 2XD 01/05/25 01/05/25 History iron) tablet (FeroSul) medroxyprogesterone 10 mg tablet 10 mg PO 3XD 01/05/25 01/05/25 History semaglutide 0.25 mg or 0.5 mg (2 0.5 mg subcut .abdullahi week 01/05/25 01/05/25 History mg/3 mL) subcutaneous pen injector (Ozempic) zinc sulfate 50 mg zinc (220 mg) 50 mg PO QDAY 01/05/25 01/05/25 History capsule Allergies Allergy/AdvReac Type Severity Reaction Status Date / Time tramadol Allergy Severe Hives Verified 03/25/25 18:27 ciprofloxacin Allergy Mild Rash Verified 03/25/25 18:27 Visit Medications Acetaminophen (Acetaminophen 325 Mg Tablet) 650 mg PO Q6H PRN PRN Reason: Fever >101.5 Stop: 04/25/25 05:00 Acetaminophen (Acetaminophen 325 Mg Tablet) 650 mg PO Q6H PRN PRN Reason: PAIN SCALE 1-3 (mild Stop: 04/25/25 05:00 Dextrose (Dextrose 50%-Water Inj 50 Ml Syringe) 25 ml IV Q15MIN PRN PRN Reason: BG 50-70 responsive npo pt Stop: 04/25/25 05:05 Dextrose (Dextrose 50%-Water Inj 50 Ml Syringe) 50 ml IV Q15MIN PRN PRN Reason: BG <50 OR BG <70 & pt unresponsive Stop: 04/25/25 05:05 Glucagon (Glucagon Inj 1 Mg Vial) 1 mg IM Q15MIN PRN PRN Reason: BG <70, and no IV access Hydromorphone HCl (Hydromorphone Inj 2 Mg/Ml Vial) 1 mg IVP Q4H PRN PRN Reason: PAIN Stop: 03/31/25 05:00 Piperacillin/Tazobactam/Dextrose (Zosyn) 2.25 gm in 50 mls @ 100 mls/hr IV Q6H SHERYL Stop: 04/02/25 05:14 Insulin Glargine (Insulin Glargine (Lantus) 5 Unit/0.05 Ml (Per 5 Units)) 10 unit SC HS SHERYL Stop: 04/25/25 20:59 Insulin Human Lispro (Insulin Lispro (Admelog) 1 Unit/0.01 Ml Unit) 0 unit SC AC SHERYL; Protocol Stop: 04/25/25 07:29 Lactulose (Lactulose Syrup 20 Gm/30 Ml Udc) 10 gm PO X1 ONE; Protocol Stop: 03/26/25 05:13 Ondansetron HCl (Ondansetron Inj 2 Mg/Ml Inj 2 Ml) 4 mg IVP Q6H PRN; Protocol PRN Reason: NAUSEA OR VOMITING Stop: 04/25/25 05:00 Oxycodone/Acetaminophen (Oxycodone/Apap 5/325 Tablet) 1 tab PO Q6H PRN PRN Reason: PAIN SCALE 4-6 (Moderate Stop: 03/31/25 05:00 Pantoprazole Sodium (Pantoprazole Inj 40 Mg Vial) 40 mg IVP Q12HR SHERYL Stop: 04/25/25 08:59 Pharmacy Consult (Pharmacy Renal Dose Adjustment 1 Ea) 1 each XX PRN PRN PRN Reason: CONSULT Stop: 04/25/25 05:11 Sennosides (Senna Tablet) 1 tab PO BID PRN; Protocol PRN Reason: CONSTIPATION Stop: 04/25/25 05:00 Discontinued Medications Acetaminophen (Acetaminophen 500 Mg Tablet) 500 mg PO X1 ONE Stop: 03/25/25 19:15 Last Admin: 03/25/25 22:01 Dose: 500 mg Sodium Chloride (Ns) 1,000 mls @ 999 mls/hr IV .Q1H1M ONE Stop: 03/25/25 20:13 Last Infusion: 03/25/25 23:02 Dose: Infused Ceftriaxone Sodium/Dextrose (Rocephin/D5w 1gm Iv Premix) 1 gm in 50 mls @ 100 mls/hr IV X1 ONE Stop: 03/25/25 19:47 Last Infusion: 03/25/25 22:44 Dose: Infused Morphine Sulfate (Morphine Sulf Inj 10 Mg/Ml Vial) 5 mg IVP X1 ONE Stop: 03/26/25 01:40 Last Admin: 03/26/25 02:17 Dose: 5 mg Octreotide Acetate (Octreotide Acet Inj 50 Mcg/Ml Vial) 50 mcg IV X1 ONE Stop: 03/25/25 19:14 Last Admin: 03/25/25 23:03 Dose: Not Given Ondansetron HCl (Ondansetron Inj 2 Mg/Ml Inj 2 Ml) 4 mg IV X1 ONE; Protocol Stop: 03/25/25 19:14 Last Admin: 03/25/25 21:57 Dose: 4 mg Ondansetron HCl (Ondansetron Inj 2 Mg/Ml Inj 2 Ml) 4 mg IVP X1 ONE; Protocol Stop: 03/26/25 01:41 Last Admin: 03/26/25 02:15 Dose: 4 mg Pantoprazole Sodium (Pantoprazole Inj 40 Mg Vial) 80 mg IVP X1 ONE Stop: 03/25/25 19:14 Last Admin: 03/25/25 23:03 Dose: Not Given Assessment & Plan Plan The patient is a 54-year-old female with significant past medical history of 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 She is admitted to telemetry for further workup and management of sepsis due to UTI. #Sepsis likely source/secondary to UTI -in setting of immunocompromised state ?Patient presented with fever spikes started 3 days ago associated with vomiting x 2. She denied any dysuria or burning sensation in urination. ?In the ED, patient was hypertensive blood pressure 155/67, heart rate 108, respiratory rate 20 and febrile with 102.9. She was saturating well on room air. Labs were significant for pancytopenia with white count 1.8, hemoglobin 9.5, platelet count 15.?Chemistry panel showed sodium 138, potassium 5.1. Non-anion gap metabolic acidosis. Bicarb 18.7. Elevated kidney functions with BUN 40 and creatinine 3.4. GFR 15. Blood glucose 238. Lactic acid 1.5. T. bili 2.9. BNP 103. Lipase was 85. Procalcitonin 29.10. ?Urinalysis was contaminated therefore repeated. Based on first urinalysis patient does have proteinuria, blood, RBC, WBC, squamous epithelial cells and bacteria. HIV negative. Cocci serology ordered. ?EKG showed sinus rhythm with frequent PVCs. QTc 401. ?CT abdomen pelvis without contrast showed no evidence of intra abdominal pathology. Liver cirrhosis with portal hypertension seen. CT lumbar spine showed no evidence of fracture. Degenerative changes only. ?Sepsis alert was initiated. Blood cultures were sent. In the ED, patient received Tylenol 500 mg p.o. x 1, normal saline 1 L x 1, Rocephin 1 g x 1, morphine 5 mg IV x 1, octreotide 50 mcg x 1, Zofran 4 mg x 2 and Protonix 80 mg IV x 1. ?Of note, patient was admitted previously for bacteremia in December 2024. HIV negative. Plan: ? Started IV Zosyn 2.25 g Q6 hourly renally dosed ? Follow-up on blood and urine cultures ? Pain management as needed ? Protonix 40 mg IV every 12 hourly ?Repeating urinalysis as first urinalysis is likely contaminated ?Source of sepsis is unknown at this point most likely attributed to urine. CT abdomen did report stent in the CBD therefore liver ultrasound was ordered to evaluate common bile duct size ? Patient denied any right upper quadrant tenderness or elevation in liver enzymes therefore MRCP was not proceeded ?Ordered cocci to rule out valley fever given sepsis #JULIUS on stage IIIb CKD, including #Non-anion gap metabolic acidosis ?Likely prerenal due to contrast nephropathy vs in the setting of sepsis ?Elevated BUN 40 and creatinine 3.4 baseline creatinine 2.3 ?Follows content management specialist Dr. Neil for chronic kidney disease Plan: - Ordered sodium bicarbonate 650 mg x 1 - Consulted nephrology, appreciate recommendations - Avoid nephrotoxic drugs - Renally dose medications - Daily a.m. 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 Follows Dr. Wren outpatient, recently had EGD done showed gastric portal varices. Patient was referred to [facility] for further management. EGD 01/06/2025: Significant for grade 1 esophageal varices, gastric varices gastritis Patient had [address] abdomen only showed liver cirrhosis with portal hypertension. Patient had an CT abdomen with contrast on Wednesday 03/21 as she is getting a procedure similar to TIPS. Plan: -Resume home dose ursodiol -Resume home dose propranolol -Hold home dose p.o. Lasix due to JULIUS -Continue IV Protonix every 12 hourly -Monitor INR daily -Continue to monitor liver function test daily in the a.m. #Severe thrombocytopenia Patient has history of severe thrombocytopenia secondary to cirrhosis and hypersplenism Follows cancer treatment center Dr. Gresham for thrombocytopenia Plan: ? Patient had appointment with new tiger machine operator next week - Continue to monitor platelet level and transfuse as needed #History of mild aortic stenosis #Diastolic dysfunction stage I Presented with substernal chest pain, but most likely associated with severe vomiting EKG revealed sinus tachycardia, no ST or T wave changes, troponin 0.[address] Lima, car shakeout operator at [facility], reports having echocardiogram done, no stress test done outpatient. Reports extensive history of cardiac disease in family Troponin I was negative Echocardiogram 01/06/2025: Normal LV size and function with an LVEF of 55 to 60%. Diastolic dysfunction Stage I Normal RV size and function with moderately elevated RVSP at 45 and 50 mmHg. Mild aortic stenosis with a V-max of 2.6 m/s and mean PG of 30 mmHg. Moderate TR, mild to moderate MR, mild MAC Plan: ?Outpatient cardiology follow-up ?Monitor for chest pain #Pancytopenia Likely multifactorial in the setting 2/2 CKD stage IIIb, with possible GI bleed versus iron deficiency anemia ? White count 1.8, hemoglobin 9.5, platelet 15 Plan: -Continue to monitor H&H daily ? Neutropenic precautions #Dysfunctional uterine bleeding #Thickened endometrium Patient follows OB?DIGITAL RESEARCH ANALYST outpatient, reports scheduled for hysterectomy in future Plan: - Resumed home dose medroxyprogesterone 3 times daily #Gout Patient reports history of gout Plan: Holding home colchicine due to JULIUS #Chronic pain Resume home dose gabapentin Health maintenance: Diet: Carb consistent diet with renal GI prophylaxis: Protonix 40 mg IV every 12 hourly DVT prophylaxis: SCDs CODE STATUS: Full code Dispo: Patient admitted to telemetry unit for further management of sepsis secondary to UTI. Patient was seen and discussed with attending physician, Dr.Macaranas Dr Alberto MD PGY-2 Attending Provider Attestation/Addendum 54-year-old obese lady with liver cirrhosis, history of gastric and esophageal varices, chronic severe thrombocytopenia secondary to hypersplenism was admitted for fever secondary to complicated UTI. Patient was started on empiric antibiotic treatment. Patient has been having on and off fever for few days. She denies headache. She has no chest pain. She has no abdominal pain. Patient does not report of active GI bleeding. I discussed with and supervised the resident physician who took care of this patient. I agree with the assessment and plan as above.
[2025-03-26] MEDS: LACTULOSE SYRUP 20 GM/30 ML UDC 10 GM PO (05:35)
[2025-03-26] MEDS: LIDOCAINE 5% 1 PATCH TOP (05:37)
[2025-03-26] MEDS: PIPER/TAZO 2.25 GM 2.25 GM/50 ML BAG IV (06:00)
[2025-03-26 06:24] LABS: Eosinophils # (Auto) 0.0 Thou/mm3 (0.0-0.5); Hematocrit 25.5 % (36.0-46.0); Immature Granulocytes Auto 0.01 Thou/mm3 (0.00-0.00); Lymphocytes # (Auto) 0.2 Thou/mm3 (1.0-4.8); Neutrophils % (Auto) 74 % (37-80)
[2025-03-26 06:26] LABS: Basophils # (Auto) 0.0 Thou/mm3 (0.0-0.2); Basophils % (Auto) 1 % (0-2.5); Nucleated Red Blood Cell # 0.00 Thou/mm3 (0.00-0.00); Nucleated Red Blood Cell % 0 /100 WBC (0); Red Blood Count 2.58 Miln/mm3 (4.00-5.20)
[2025-03-26 06:29] LABS: White Blood Count 1.3 Thou/mm3 (3.6-11.0)
[2025-03-26 06:31] LABS: Eosinophils % (Auto) 2 % (0-10); Lymphocytes % (Auto) 16 % (10-50); Mean Corpuscular HGB Conc 34.1 g/dl (31.0-37.0); Mean Corpuscular Hemoglobin 33.7 pg (25.0-35.0); Mean Corpuscular Volume 99 fL (80-100); Monocytes # (Auto) 0.1 Thou/mm3 (0.0-0.8); Monocytes % (Auto) 7 % (0-12); Neutrophils # (Auto) 1.0 Thou/mm3 (1.8-7.7); RDW Standard Deviation 56.4 fL (36.4-46.3)
[2025-03-26 06:47] LABS: Alanine Aminotransferase 19 U/L (10-49); Albumin, Serum 3.0 gm/dL (3.5-5.0); Albumin/Globulin Ratio 1.0 (1.2-2.2); Alkaline Phosphatase 53 U/L (46-116); Anion Gap 9 (7-16); Aspartate Amino Transferase 27 U/L (0-34); BUN/Creatinine Ratio 14 Ratio (12-20); Bilirubin,Total 2.3 mg/dL (0.3-1.2); Blood Urea Nitrogen 48 mg/dL (9-23); Calcium 8.5 mg/dL (8.3-10.6); Calcium (Corrected) 9.3 mg/dL (8.5-10.1); Carbon Dioxide 19.6 mMol/L (20.0-31.0); Chloride 110 mMol/L (98-107); Creatinine (Component) 3.4 mg/dL (0.6-1.3); Estimated Creatinine Clearance 29.6 mL/min (>60); Globulin 2.9 gm/dL (2.3-3.5); Glucose 219 mg/dL (74-106); Magnesium 2.0 mg/dL (1.6-2.6); Osmolality,Calculated 297 (275-295); Potassium 5.0 mMol/L (3.4-5.1); Sodium 139 mMol/L (136-145); Total Protein 5.9 gm/dL (5.7-8.2); eGFR 15 See Note
[2025-03-26 06:58] LABS: Hemoglobin 8.7 g/dL (12.0-16.0)
[2025-03-26 06:59] LABS: Platelet Count 17 Thou/mm3 (140-440)
[2025-03-26 07:10] LABS: Slide Review Platelets confirmed
--- NOTE | 2025-03-26 07:44 | PC.LAC ---
RECEIVED REPORT FORM HA MACHUCA. PATIENT ASSESSMENT COMPLETED, PATIENT WITH COMPLAINT OF CHRONIC BACK PAIN 2/10 ON PAIN SCALE. PATIENT ALERT AND ORIENTED WITH NO COMPLAINTS AT TIME FO ASSESSMENT. CALL LIGHT WITHIN REACH. WILL CONTINUE TO MONITOR.
[2025-03-26] MEDS: INSULIN LISPRO (AdmeLOG) 1 UNIT/0.01 ML UNIT SC ×3 (08:04→18:17)
[2025-03-26] MEDS: GABAPENTIN 100 MG CAPSULE 400 MG PO ×2 (08:43→20:28)
--- NOTE | 2025-03-26 09:22 | PC.NURSE ---
PATIENT ATE 75% OF BREAKFAST. PATIENT DENIES COMPLAINT AT THIS TIME, PATIENT RESTING WITH CALL LIGHT WITHIN REACH. CONTINUING TO WAIT ON ORDERED MEDICATION FROM PHARMACY.
[2025-03-26] MEDS: PROPRANOLOL 10 MG TABLET PO ×2 (09:34→20:29)
[2025-03-26] MEDS: VIT B12/Vit C/FA (Nephrovite) TABLET 1 TAB PO (09:37)
[2025-03-26] MEDS: ZINC GLUCONATE 50 MG TABLET PO (09:39)
[2025-03-26] MEDS: ASCORBIC ACID 250 MG TABLET 500 MG PO ×2 (09:39→20:28)
[2025-03-26] MEDS: SODIUM BICARBONATE 650 MG TABLET PO (10:50)
[2025-03-26 10:51] LABS: Collection Type, Urine Clean Catch
[2025-03-26 11:08] LABS: Bacteria,Urine Rare; Bilirubin,Urine Negative (Negative); Blood,Urine 2+ (Negative); Clarity,Urine Turbid (Clear/Hazy); Color,Urine Yellow (Lt Yel-Yel); Glucose, Urine Negative (Negative); Ketones,Urine Negative (Negative); Leukocyte Esterase,Urine Positive (Negative); Nitrite,Urine Negative (Negative); PH,Urine 6.0 (5.0-7.0); Protein,Urine Trace (Neg - Trace); RBC,Urine 18 /hpf (0-3); Specific Gravity,Urine 1.019 (1.001-1.035); Squamous Epithelial Cell,Urine 6 /hpf (0-5); Urobilinogen,Urine Negative mg/dL (0.0-1.0); WBC,Urine 47 /hpf (0-5)
--- NOTE | 2025-03-26 13:24 | PD.RESPRO ---
Documentation for date of: 03/26/25 Subjective Subjective Interval history: Patient seen and examined at bedside. Patient admitted overnight for urinary tract infection, complicated UTI in setting of immunocompromise state. Patient also noted to have acute kidney injury, bilateral lower extremity edema noted, patient did receive 1 L fluid in ED. Will start patient on IV diuresis, suspicion of cardiorenal syndrome, ordered Lasix 40mg x 1. Liver ultrasound ordered by night team shows normal CBD. Patient otherwise alert and oriented x 3, has no current complaints, denies any fevers postadmission. Will follow-up blood culture, urine culture and continue IV antibiotics. Exam Vital Signs Temp Pulse Resp BP Pulse Ox O2 Del Method 99.0 F 85 20 132/55 H 98 Room Air 03/26/25 07:41 03/26/25 13:15 03/26/25 13:15 03/26/25 13:15 03/26/25 13:15 03/26/25 13:15 Narrative Exam GENERAL APPEARANCE: AxOx4, obese female in no acute distress. HEENT: NC, AT. MMM. EOMI, clear conjunctiva, oropharynx clear. NECK: Supple without lymphadenopathy. No stiffness or restricted ROM. HEART: Regular rate and regular rhythm, normal S1/S2, no m/r/g LUNGS: CTAB, moving air well. No crackles or wheezes are heard. ABDOMEN: Soft, nontender, nondistended with good bowel sounds heard. Palpable spleen. BACK: No CVAT, no obvious deformity. Mild sacroiliac pain EXTREMITIES: 2 + bilateral lower extremity edema NEUROLOGICAL: Grossly nonfocal. Alert and oriented, moving all 4 extremities. CN not formally tested but appear grossly intact. Skin: Warm and dry without any rash. Psych: Appropriate mood and affect Objective Labs 03/26/25 05:48 03/26/25 05:48 Labs: Laboratory Results - last 24 hr 03/25/25 03/25/25 03/25/25 19:24 21:00 23:09 WBC 1.8 L RBC 2.92 L Hgb 9.5 L Hct 27.8 L MCV 95 MCH 32.5 MCHC 34.2 RDW Std Deviation 53.8 H Plt Count 15 L* Neut % (Auto) 80 Lymph % (Auto) 7 L [place] % (Auto) 9 Eos % (Auto) 3 Baso % (Auto) 1 Neut # (Auto) 1.4 L Lymph # (Auto) 0.1 L [place] # (Auto) 0.2 Eos # (Auto) 0.1 Baso # (Auto) 0.0 Immature Gran # (Auto) 0.02 H Absolute Nucleated RBC 0.00 Immature Gran % 1 H Nucleated RBC % 0 Sodium 138 Potassium 5.1 Chloride 108 H Carbon Dioxide 18.7 L Anion Gap 11 BUN 40 H Creatinine 3.4 H Estim Creat Clear Calc 29.6 L eGFR 15 L BUN/Creatinine Ratio 12 Glucose 238 H Calculated Osmolality 293 Lactic Acid 2.4 H 1.5 Calcium 8.9 Corrected Calcium 9.4 Magnesium Total Bilirubin 2.9 H AST 30 ALT 21 Alkaline Phosphatase 65 Troponin I 0.027 B-Natriuretic Peptide 103 H Total Protein 6.7 Albumin 3.4 L Globulin 3.3 Albumin/Globulin Ratio 1.0 L Lipase 85 H Procalcitonin 29.10 H Ur Collection Type Clean Catch Urine Color Yellow Urine Clarity Turbid A Urine pH 5.5 Ur Specific [place] 1.018 Urine Protein 1+ A Urine Glucose (UA) Negative Urine Ketones Negative Urine Blood 2+ A Urine Nitrite Negative Urine Bilirubin Negative Urine Urobilinogen (Auto) Negative Ur Leukocyte Esterase Positive Urine RBC 75 H Urine WBC 79 H Ur Squamous Epith Cells 30 H Ur Transition Epith Cell < 1 Urine Bacteria 3+ A HIV 1&2 Antibody Rapid Non-Reactive Misc Test Result Platelets confirmed 03/26/25 03/26/25 05:48 10:15 WBC 1.3 L RBC 2.58 L Hgb 8.7 L Hct 25.5 L MCV 99 MCH 33.7 MCHC 34.1 RDW Std Deviation 56.4 H Plt Count 17 L* Neut % (Auto) 74 Lymph % (Auto) 16 [place] % (Auto) 7 Eos % (Auto) 2 Baso % (Auto) 1 Neut # (Auto) 1.0 L Lymph # (Auto) 0.2 L [place] # (Auto) 0.1 Eos # (Auto) 0.0 Baso # (Auto) 0.0 Immature Gran # (Auto) 0.01 H Absolute Nucleated RBC 0.00 Immature Gran % 1 H Nucleated RBC % 0 Sodium 139 Potassium 5.0 Chloride 110 H Carbon Dioxide 19.6 L Anion Gap 9 BUN 48 H Creatinine 3.4 H Estim Creat Clear Calc 29.6 L eGFR 15 L BUN/Creatinine Ratio 14 Glucose 219 H Calculated Osmolality 297 H Lactic Acid Calcium 8.5 Corrected Calcium 9.3 Magnesium 2.0 Total Bilirubin 2.3 H D AST 27 ALT 19 Alkaline Phosphatase 53 Troponin I B-Natriuretic Peptide Total Protein 5.9 Albumin 3.0 L Globulin 2.9 Albumin/Globulin Ratio 1.0 L Lipase Procalcitonin Ur Collection Type Clean Catch Urine Color Yellow Urine Clarity Turbid A Urine pH 6.0 Ur Specific [place] 1.019 Urine Protein Trace Urine Glucose (UA) Negative Urine Ketones Negative Urine Blood 2+ A Urine Nitrite Negative Urine Bilirubin Negative Urine Urobilinogen (Auto) Negative Ur Leukocyte Esterase Positive Urine RBC 18 H Urine WBC 47 H Ur Squamous Epith Cells 6 H Ur Transition Epith Cell Urine Bacteria Rare HIV 1&2 Antibody Rapid Misc Test Result Platelets confirmed Quality Measures Quality Measures VTE prophylaxis (SCDs) Assessment & Plan Assessment Current Active Medications: Generic Name Dose Route Start Last Admin Trade Name Freq PRN Reason Stop Dose Admin Acetaminophen 650 mg 03/26/25 05:01 Acetaminophen 325 Mg Tablet PO 04/25/25 05:00 Q6H PRN Fever >101.5 Acetaminophen 650 mg 03/26/25 05:01 Acetaminophen 325 Mg Tablet PO 04/25/25 05:00 Q6H PRN PAIN SCALE 1-3 (mild Ascorbic Acid 500 mg 03/26/25 09:00 03/26/25 09:39 Ascorbic Acid 250 Mg Tablet PO 04/25/25 08:59 500 mg BID SHERYL Administration Atorvastatin Calcium 10 mg 03/26/25 21:00 Atorvastatin Calcium 10 Mg Tablet PO 04/25/25 20:59 HS SHERYL Dextrose 25 ml 03/26/25 05:06 Dextrose 50%-Water Inj 50 Ml Syringe IV 04/25/25 05:05 Q15MIN PRN BG 50-70 responsive npo pt Dextrose 50 ml 03/26/25 05:06 Dextrose 50%-Water Inj 50 Ml Syringe IV 04/25/25 05:05 Q15MIN PRN BG <50 OR BG <70 & pt unresponsive Gabapentin 400 mg 03/26/25 09:00 03/26/25 08:43 Gabapentin 100 Mg Capsule PO 04/25/25 08:59 400 mg BID SHERYL Administration Glucagon 1 mg 03/26/25 05:06 Glucagon Inj 1 Mg Vial IM Q15MIN PRN BG <70, and no IV access Hydromorphone HCl 1 mg 03/26/25 05:01 Hydromorphone Inj 2 Mg/Ml Vial IVP 03/31/25 05:00 Q4H PRN PAIN 7-10 Piperacillin/Tazobactam/Dextrose 3.375 gm in 50 mls @ 12.5 mls/hr 03/26/25 14:00 Zosyn IV 04/02/25 13:59 Q8HR [facility] Protocol Insulin Glargine 10 unit 03/26/25 21:00 Insulin Glargine (Lantus) 5 Unit/0.05 Ml (Per 5 Units) SC 04/25/25 20:59 HS [facility] Insulin Human Lispro 0 unit 03/26/25 07:30 03/26/25 11:53 Insulin Lispro (Admelog) 1 Unit/0.01 Ml Unit SC 04/25/25 07:29 1 unit AC SHERYL Administration Protocol Medroxyprogesterone Acetate 10 mg 03/26/25 09:00 03/26/25 09:35 Medroxyprogesterone Acet 2.5 Mg Tablet PO 04/25/25 08:59 10 mg BID SHERYL Administration Ondansetron HCl 4 mg 03/26/25 05:01 Ondansetron Inj 2 Mg/Ml Inj 2 Ml IVP 04/25/25 05:00 Q6H PRN NAUSEA OR VOMITING Protocol Oxycodone/Acetaminophen 1 tab 03/26/25 05:01 Oxycodone/Apap 5/325 Tablet PO 03/31/25 05:00 Q6H PRN PAIN SCALE 4-6 (Moderate Pantoprazole Sodium 40 mg 03/26/25 09:00 03/26/25 08:44 Pantoprazole Inj 40 Mg Vial IVP 04/25/25 08:59 40 mg Q12HR SHERYL Administration Pharmacy Consult 1 each 03/26/25 05:12 Pharmacy Renal Dose Adjustment 1 Ea XX 04/25/25 05:11 PRN PRN CONSULT Propranolol HCl 10 mg 03/26/25 09:00 03/26/25 09:34 Propranolol 10 Mg Tablet PO 04/25/25 08:59 10 mg BID SHERYL Administration Sennosides 1 tab 03/26/25 05:01 Senna Tablet PO 04/25/25 05:00 BID PRN CONSTIPATION Protocol Ursodiol 300 mg 03/26/25 09:15 03/26/25 09:37 Ursodiol 300 Mg Capsule PO 04/25/25 09:14 300 mg TID SHERYL Administration Vitamin B Complex/Vit C/Folic Acid 1 tab 03/26/25 09:00 03/26/25 09:37 Vit B12/Vit C/Fa (Nephrovite) Tablet PO 04/25/25 08:59 1 tab QDAY SHERYL Administration Zinc Gluconate 50 mg 03/26/25 09:00 03/26/25 09:39 Zinc Gluconate 50 Mg Tablet PO 04/25/25 08:59 50 mg QDAY SHERYL Administration Plan The patient is a 54-year-old female with significant past medical history of 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 She is admitted to telemetry for further workup and management of sepsis due to UTI. #Complicated urinary tract infection ?In setting of immunocompromised state, patient SIRS positive in the emergency department, sofa score 8 however patient does have underlying chronic issues, low suspicion of sepsis, sepsis ruled out. ?Patient presented with fever spikes started 3 days ago associated with vomiting x 2. She denied any dysuria or burning sensation in urination. ?In the ED, patient met sepsis criteria SIRS 4/4. Labs were significant for pancytopenia with white count 1.8, hemoglobin 9.5, platelet count 15. ?Lactate unremarkable in ED, Pro-Feliberto elevated at 29.10, normal anion gap metabolic acidosis noted on admission. ?Urinalysis from 03/25 likely contaminated, repeat urinalysis shows urine blood 2+, RBC 18, WBC 47, squamous cell noted to be 6, bacteriuria ?EKG showed sinus rhythm with frequent PVCs. QTc 401. ?CT abdomen pelvis without contrast showed no evidence of intra abdominal pathology. Liver cirrhosis with portal hypertension seen. CT lumbar spine showed no evidence of fracture. Degenerative changes only. ?Sepsis alert was initiated in the emergency department. Blood cultures were sent. ?Of note, patient was admitted previously for bacteremia in December 2024. Plan: ? Continue IV Zosyn 2.25 g Q6 hourly renally dosed ? Follow-up on blood and urine cultures ? Pain management as needed ? Liver ultrasound unremarkable ? 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 Plan: - Patient will be given Lasix 40 mg IV x 1, will follow renal function in a.m. 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 Follows Dr. Wren outpatient, recently had EGD done showed gastric portal varices. Patient was referred to [place] for further management. EGD 01/06/2025: Significant for grade 1 esophageal varices, gastric varices gastritis Patient had [address] abdomen only showed liver cirrhosis with portal hypertension. Patient had an CT abdomen with contrast on Wednesday 03/21 as she is getting a procedure similar to TIPS. Plan: -Resume home dose ursodiol -Resume home dose propranolol -Hold home dose p.o. Lasix due to JULIUS -Continue IV Protonix every 12 hourly -Monitor INR daily -Continue to monitor liver function test daily in the a.m. #Severe thrombocytopenia Patient has history of severe thrombocytopenia secondary to cirrhosis and hypersplenism Follows cancer treatment center Dr. Gresham for thrombocytopenia Plan: - Continue to monitor platelet level and transfuse as needed, will transfuse if platelet less than 10,000 #History of mild aortic stenosis #Diastolic dysfunction stage I Presented with substernal chest pain, but most likely associated with severe vomiting EKG revealed sinus tachycardia, no ST or T wave changes, troponin 0.[address] 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 Reports extensive history of cardiac disease in family Troponin I was negative Echocardiogram 01/06/2025: Normal LV size and function with an LVEF of 55 to 60%. Diastolic dysfunction Stage I Normal RV size and function with moderately elevated RVSP at 45 and 50 mmHg. Mild aortic stenosis with a V-max of 2.6 m/s and mean PG of 30 mmHg. Moderate TR, mild to moderate MR, mild MAC Plan: ?Outpatient cardiology follow-up ?Monitor for chest pain #Pancytopenia Likely multifactorial in the setting 2/2 CKD stage IIIb, with possible GI bleed versus iron deficiency anemia ? White count 1.8, hemoglobin 9.5, platelet 15 Plan: -Continue to monitor H&H daily ? 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 Case discussed with Attending Dr. Tracey. Sonia Lang PGY1 Disclaimer: This note was dictated by speech recognition. Minor errors in bench assembly inspector may be present due to voice recognition software. Attending Provider Attestation/Addendum , Which is where she resides on minimal oxygen I have discussed and was present for the essential components of the history, physical examination, diagnosis, and treatment plan with the resident. I agree with the patient's care as documented by the resident and amended herein by me. Micah Tracey DO. Patient seen and evaluated this AM. Vital signs stable at time of bedside visit, Tmax overnight 102.9, patient on room air, SpO2 98%. Significant labs included WBC of 1.3, hemoglobin 8.7, platelet count 17, chloride 110, bicarb 19.6, BUN 48, creatinine 3.4, baseline appears to be 1.9-2.0, T. bili 2.3 however she does have a history of elevated bilirubin, urinalysis overnight was positive, cocci testing pending, HIV testing negative. A liver ultrasound performed was unremarkable with the exception of cirrhosis which the patient has a history of, patient had a lumbar CT demonstrating no acute fracture however chronic disc bulges in the lumbar region. Abdominal CT demonstrated cirrhosis, massive splenomegaly and portal hypertension. EKG demonstrated sinus tachycardia and chest x-ray was unremarkable. Patient was subsequently admitted overnight for complicated urinary tract infection in setting of an immunocompromised patient. I do not think the patient is septic despite high sofa score, score is high due to chronic liver issues but the patient clinically looks stable and well. Will continue Zosyn for now and continue to follow-up with cultures. Will also follow-up with other serologies that were ordered. May attempt to diurese the patient considering bilateral pitting edema. I am also concerned about the patient's thrombocytopenia which is chronic in this patient, she has been in the teens before however will monitor closely for any signs of bleeding, may need platelet transfusion however may be consumed quite readily in setting of splenomegaly. Will continue to monitor closely, the patient does follow with outpatient nephrology, hepatology and hematology, see resident note for additional details Although this document has been carefully reviewed, there may still be some phonetic and other typographical errors. These errors are purely grammatical due to imperfections in the software program and should not be construed in any way to compromise the substance of the patient's medical care during this visit.
[2025-03-26] MEDS: PIPER/TAZO 3.375 GM PREMIX 3.375 GM/50 ML BAG IV ×2 (13:55→21:33)
[2025-03-26 14:30] LABS: Cocci Serology, IgM Negative (Negative)
[2025-03-26] MEDS: FUROSEMIDE INJ 10 MG/ML 4ML VIAL 40 MG IVP (18:17)
[2025-03-26] MEDS: HYDROmorphone INJ 2 MG/ML VIAL 1 MG IVP (18:45)
[2025-03-26] MEDS: ATORVASTATIN CALCIUM 10 MG TABLET PO (20:29)
[2025-03-26] MEDS: INSULIN GLARGINE (Lantus) 5 UNIT/0.05 ML (PER 5 UNITS) 10 UNIT SC (20:31)
[2025-03-26] MEDS: NYSTATIN PWD 15 GM BTL TOP (21:59)
[2025-03-27] VITALS (10 sets, daily range): BP systolic 116–153; BP diastolic 56–67; PULSE 72–89; RESP 17–20; TEMP 36–36.8; O2SAT 95–97; BMI 52.7
[2025-03-27] MEDS: PIPER/TAZO 3.375 GM PREMIX 3.375 GM/50 ML BAG IV ×3 (05:03→20:52)
[2025-03-27 06:29] LABS: Basophils # (Auto) 0.0 Thou/mm3 (0.0-0.2); Basophils % (Auto) 0 % (0-2.5); Eosinophils # (Auto) 0.0 Thou/mm3 (0.0-0.5); Eosinophils % (Auto) 2 % (0-10); Hematocrit 24.4 % (36.0-46.0); Immature Granulocytes Auto 0.01 Thou/mm3 (0.00-0.00); Lymphocytes # (Auto) 0.2 Thou/mm3 (1.0-4.8); Lymphocytes % (Auto) 14 % (10-50); Mean Corpuscular HGB Conc 34.4 g/dl (31.0-37.0); Mean Corpuscular Hemoglobin 33.3 pg (25.0-35.0); Mean Corpuscular Volume 97 fL (80-100); Monocytes # (Auto) 0.4 Thou/mm3 (0.0-0.8); Monocytes % (Auto) 20 % (0-12); Neutrophils # (Auto) 1.1 Thou/mm3 (1.8-7.7); Neutrophils % (Auto) 64 % (37-80); Nucleated Red Blood Cell # 0.00 Thou/mm3 (0.00-0.00); Nucleated Red Blood Cell % 0 /100 WBC (0); RDW Standard Deviation 56.1 fL (36.4-46.3); Red Blood Count 2.52 Miln/mm3 (4.00-5.20)
[2025-03-27 06:33] LABS: INR 1.3 (0.9-1.3); Partial Thromboplastin Time 28.7 Seconds (22.0-36.0); Prothrombin Time 14.2 Seconds (9.0-12.2)
[2025-03-27 06:34] LABS: Hemoglobin 8.4 g/dL (12.0-16.0); White Blood Count 1.8 Thou/mm3 (3.6-11.0)
[2025-03-27 06:36] LABS: Platelet Count 15 Thou/mm3 (140-440)
[2025-03-27 07:08] LABS: Slide Review Platelets confirmed
[2025-03-27 07:20] LABS: Alanine Aminotransferase 18 U/L (10-49); Albumin, Serum 3.1 gm/dL (3.5-5.0); Albumin/Globulin Ratio 1.0 (1.2-2.2); Alkaline Phosphatase 52 U/L (46-116); Anion Gap 8 (7-16); Aspartate Amino Transferase 26 U/L (0-34); BUN/Creatinine Ratio 16 Ratio (12-20); Bilirubin,Total 2.1 mg/dL (0.3-1.2); Blood Urea Nitrogen 51 mg/dL (9-23); Calcium 8.5 mg/dL (8.3-10.6); Calcium (Corrected) 9.2 mg/dL (8.5-10.1); Carbon Dioxide 22.0 mMol/L (20.0-31.0); Cardiac Risk Estimate 5.0 RATIO (3.7-5.6); Chloride 109 mMol/L (98-107); Cholesterol 51 mg/dL (132-200); Creatinine (Component) 3.1 mg/dL (0.6-1.3); Estimated Creatinine Clearance 26.4 mL/min (>60); Globulin 3.0 gm/dL (2.3-3.5); Glucose 198 mg/dL (74-106); HDL Cholesterol < 10 mg/dL (40-60); LDL Cholesterol,Calculated 11 mg/dL (0-130); Magnesium 1.9 mg/dL (1.6-2.6); Osmolality,Calculated 297 (275-295); Phosphorous 3.5 mg/dL (2.4-5.1); Potassium 4.4 mMol/L (3.4-5.1); Sodium 139 mMol/L (136-145); Total Protein 6.1 gm/dL (5.7-8.2); Triglycerides 149 mg/dL (30-150); eGFR 17 See Note
[2025-03-27] MEDS: INSULIN LISPRO (AdmeLOG) 1 UNIT/0.01 ML UNIT SC ×3 (08:28→17:58)
[2025-03-27] MEDS: ASCORBIC ACID 250 MG TABLET 500 MG PO ×2 (08:29→20:43)
[2025-03-27] MEDS: GABAPENTIN 100 MG CAPSULE 400 MG PO ×2 (08:29→20:42)
[2025-03-27] MEDS: VIT B12/Vit C/FA (Nephrovite) TABLET 1 TAB PO (08:30)
[2025-03-27] MEDS: ZINC GLUCONATE 50 MG TABLET PO (08:30)
[2025-03-27] MEDS: PROPRANOLOL 10 MG TABLET PO ×2 (08:30→20:44)
[2025-03-27] MEDS: FUROSEMIDE INJ 10 MG/ML 4ML VIAL 40 MG IVP (08:46)
[2025-03-27] MEDS: HYDROmorphone INJ 2 MG/ML VIAL 1 MG IVP ×2 (11:03→18:36)
[2025-03-27] MEDS: NYSTATIN PWD 15 GM BTL TOP ×2 (12:02→20:51)
--- NOTE | 2025-03-27 12:06 | PD.RESPRO ---
Documentation for date of: 03/27/25 Subjective Subjective Interval history: Patient seen and examined at bedside, currently complains of some back pain. Patient's pain regimen changed to [place] for moderate to severe pain, Dilaudid for breakthrough and lidocaine patches as needed for back pain. Patient does report using nystatin/otc powder for excessive sweating below her abdominal fold, will start the patient on the same. Otherwise improvement in renal function noted with IV diuresis. Started on scheduled Lasix. Preliminary blood cultures show GNR 2/2, will continue with IV Zosyn, previously patient was noted to have E. coli in blood in December which was sensitive to Zosyn. Pending speciation, will continue with IV diuresis, nephrology is following. Exam Vital Signs Temp Pulse Resp BP Pulse Ox O2 Del Method 97.7 F 82 20 153/66 H 95 Room Air 03/27/25 08:00 03/27/25 08:46 03/27/25 08:00 03/27/25 08:46 03/27/25 08:00 03/27/25 08:00 Narrative Exam GENERAL APPEARANCE: AxOx4, obese female in no acute distress. HEENT: NC, AT. MMM. EOMI, clear conjunctiva, oropharynx clear. NECK: Supple without lymphadenopathy. No stiffness or restricted ROM. HEART: Regular rate and regular rhythm, normal S1/S2, no m/r/g LUNGS: CTAB, moving air well. No crackles or wheezes are heard. ABDOMEN: Soft, nontender, nondistended with good bowel sounds heard. Palpable spleen. BACK: No CVAT, no obvious deformity. Mild sacroiliac pain EXTREMITIES: 2 + bilateral lower extremity edema NEUROLOGICAL: Grossly nonfocal. Alert and oriented, moving all 4 extremities. CN not formally tested but appear grossly intact. Skin: Warm and dry without any rash. Psych: Appropriate mood and affect Objective Labs 03/27/25 05:40 03/27/25 05:40 Labs: Laboratory Results - last 24 hr 03/26/25 03/27/25 05:48 05:40 WBC 1.8 L RBC 2.52 L Hgb 8.4 L Hct 24.4 L MCV 97 MCH 33.3 MCHC 34.4 RDW Std Deviation 56.1 H Plt Count 15 L* Neut % (Auto) 64 Lymph % (Auto) 14 [place] % (Auto) 20 H Eos % (Auto) 2 Baso % (Auto) 0 Neut # (Auto) 1.1 L Lymph # (Auto) 0.2 L Leon # (Auto) 0.4 Eos # (Auto) 0.0 Baso # (Auto) 0.0 Immature Gran # (Auto) 0.01 H Absolute Nucleated RBC 0.00 Immature Gran % 1 H Nucleated RBC % 0 PT 14.2 H INR 1.3 APTT 28.7 Sodium 139 Potassium 4.4 D Chloride 109 H Carbon Dioxide 22.0 Anion Gap 8 BUN 51 H Creatinine 3.1 H Estim Creat Clear Calc 26.4 L eGFR 17 L BUN/Creatinine Ratio 16 Glucose 198 H Calculated Osmolality 297 H Calcium 8.5 Corrected Calcium 9.2 Phosphorus 3.5 Magnesium 1.9 Total Bilirubin 2.1 H AST 26 ALT 18 Alkaline Phosphatase 52 Total Protein 6.1 Albumin 3.1 L Globulin 3.0 Albumin/Globulin Ratio 1.0 L Triglycerides 149 Cholesterol 51 L LDL Cholesterol, Calc 11 HDL Cholesterol < 10 L Cholesterol/HDL Ratio 5.0 Coccidioides IgM Ab Negative Misc Test Result Platelets confirmed Quality Measures Quality Measures VTE prophylaxis (SCDs) Assessment & Plan Assessment Current Active Medications: Generic Name Dose Route Start Last Admin Trade Name Freq PRN Reason Stop Dose Admin Acetaminophen 650 mg 03/26/25 05:01 Acetaminophen 325 Mg Tablet PO 04/25/25 05:00 Q6H PRN Fever >101.5 Acetaminophen 650 mg 03/26/25 05:01 Acetaminophen 325 Mg Tablet PO 04/25/25 05:00 Q6H PRN PAIN SCALE 1-3 (mild Hydrocodone Bitart/Acetaminophen 1 tab 03/27/25 11:03 Hydrocodone/Apap 5/325 Tablet PO 04/01/25 11:02 Q6HR PRN PAIN SCALE 4-10(Mod-Sev Ascorbic Acid 500 mg 03/26/25 09:00 03/27/25 08:29 Ascorbic Acid 250 Mg Tablet PO 04/25/25 08:59 500 mg BID SHERYL Administration Atorvastatin Calcium 10 mg 03/26/25 21:00 03/26/25 20:29 Atorvastatin Calcium 10 Mg Tablet PO 04/25/25 20:59 10 mg HS SHERYL Administration Dextrose 25 ml 03/26/25 05:06 Dextrose 50%-Water Inj 50 Ml Syringe IV 04/25/25 05:05 Q15MIN PRN BG 50-70 responsive npo pt Dextrose 50 ml 03/26/25 05:06 Dextrose 50%-Water Inj 50 Ml Syringe IV 04/25/25 05:05 Q15MIN PRN BG <50 OR BG <70 & pt unresponsive Furosemide 40 mg 03/27/25 09:00 03/27/25 08:46 Furosemide Inj 10 Mg/Ml 4ml Vial IVP 04/26/25 08:59 40 mg QDAY SHERYL Administration Gabapentin 400 mg 03/26/25 09:00 03/27/25 08:29 Gabapentin 100 Mg Capsule PO 04/25/25 08:59 400 mg BID SHERYL Administration Glucagon 1 mg 03/26/25 05:06 Glucagon Inj 1 Mg Vial IM Q15MIN PRN BG <70, and no IV access Hydromorphone HCl 1 mg 03/27/25 11:05 Hydromorphone Inj 2 Mg/Ml Vial IVP 03/31/25 05:00 Q4H PRN BREAKTHROUGH PAIN (SEVERE) Protocol Piperacillin/Tazobactam/Dextrose 3.375 gm in 50 mls @ 12.5 mls/hr 03/26/25 14:00 03/27/25 05:03 Zosyn IV 04/02/25 13:59 12.5 mls/hr Q8HR SHREYL Administration Protocol Insulin Glargine 10 unit 03/26/25 21:00 03/26/25 20:31 Insulin Glargine (Lantus) 5 Unit/0.05 Ml (Per 5 Units) SC 04/25/25 20:59 10 unit HS SHERYL Administration Insulin Human Lispro 0 unit 03/26/25 07:30 03/27/25 12:02 Insulin Lispro (Admelog) 1 Unit/0.01 Ml Unit SC 04/25/25 07:29 1 unit AC SHERYL Administration Protocol Lidocaine 1 patch 03/27/25 11:03 Lidocaine 5% 1 Patch TOP 04/26/25 11:02 UD PRN Back Pain Protocol Medroxyprogesterone Acetate 10 mg 03/26/25 09:00 03/27/25 08:30 Medroxyprogesterone Acet 2.5 Mg Tablet PO 04/25/25 08:59 10 mg BID SHERYL Administration Nystatin 0 gm 03/27/25 11:15 03/27/25 12:02 Nystatin Pwd 15 Gm Btl TOP 04/26/25 11:14 1 applicatio BID SHERYL Administration Ondansetron HCl 4 mg 03/26/25 05:01 Ondansetron Inj 2 Mg/Ml Inj 2 Ml IVP 04/25/25 05:00 Q6H PRN NAUSEA OR VOMITING Protocol Pantoprazole Sodium 40 mg 03/26/25 09:00 03/27/25 08:46 Pantoprazole Inj 40 Mg Vial IVP 04/25/25 08:59 40 mg Q12HR SHERYL Administration Pharmacy Consult 1 each 03/26/25 05:12 Pharmacy Renal Dose Adjustment 1 Ea XX 04/25/25 05:11 PRN PRN CONSULT Propranolol HCl 10 mg 03/26/25 09:00 03/27/25 08:30 Propranolol 10 Mg Tablet PO 04/25/25 08:59 10 mg BID SHERYL Administration Sennosides 1 tab 03/26/25 05:01 Senna Tablet PO 04/25/25 05:00 BID PRN CONSTIPATION Protocol Ursodiol 300 mg 03/26/25 09:15 03/27/25 05:04 Ursodiol 300 Mg Capsule PO 04/25/25 09:14 300 mg TID SHERYL Administration Vitamin B Complex/Vit C/Folic Acid 1 tab 03/26/25 09:00 03/27/25 08:30 Vit B12/Vit C/Fa (Nephrovite) Tablet PO 04/25/25 08:59 1 tab QDAY SHERYL Administration Zinc Gluconate 50 mg 03/26/25 09:00 03/27/25 08:30 Zinc Gluconate 50 Mg Tablet PO 04/25/25 08:59 50 mg QDAY SHERYL Administration Plan The patient is a 54-year-old female with significant past medical history of 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 She is admitted to telemetry for further workup and management of sepsis due to UTI. #Complicated urinary tract infection #GNR bacteremia-pending speciation ?In setting of immunocompromised state, patient SIRS positive in the emergency department, sofa score 8 however patient does have underlying chronic issues, low suspicion of sepsis, sepsis ruled out. ?Patient presented with fever spikes started 3 days ago associated with vomiting x 2. She denied any dysuria or burning sensation in urination. ?In the ED, patient met sepsis criteria SIRS 4/4. Labs were significant for pancytopenia with white count 1.8, hemoglobin 9.5, platelet count 15. ?Lactate unremarkable in ED, Pro-Feliberto elevated at 29.10, normal anion gap metabolic acidosis noted on admission. ?Urinalysis from 03/25 likely contaminated, repeat urinalysis shows urine blood 2+, RBC 18, WBC 47, squamous cell noted to be 6, bacteriuria ?EKG showed sinus rhythm with frequent PVCs. QTc 401. ?CT abdomen pelvis without contrast showed no evidence of intra abdominal pathology. Liver cirrhosis with portal hypertension seen. CT lumbar spine showed no evidence of fracture. Degenerative changes only. ?Sepsis alert was initiated in the emergency department. Blood cultures were sent. ?Of note, patient was admitted previously for bacteremia in December 2024. Plan: ? Continue IV Zosyn 2.25 g Q6 hourly renally dosed ? Follow-up on blood and urine cultures ? Pain management as needed ? Liver ultrasound unremarkable ? Cocci IgM negative ? Neutropenic precautions #JULIUS on stage IIIb CKD, including #Non-anion gap metabolic acidosis ?Likely cardiorenal, 2+ bilateral lower extremity edema noted versus prerenal due to contrast nephropathy vs in the setting of UTI ?Elevated BUN 40 and creatinine 3.4 baseline creatinine 2.3 ?Follows aviation consultant Dr. Neil for chronic kidney disease ?Patient had an CT abdomen with contrast on Wednesday 03/21 as she is getting a procedure similar to TIPS. Plan: - Will continue with Lasix 40 mg IV daily - Consulted nephrology, appreciate recommendations - Avoid nephrotoxic drugs - Renally dose medications #Acute decompensated heart failure, EF 55 to 60% #History of mild aortic stenosis #Diastolic dysfunction stage I Presented with substernal chest pain, but most likely associated with severe vomiting EKG revealed sinus tachycardia, no ST or T wave changes, troponin 0.[address] Lima, retail parts professional at [facility], reports having echocardiogram done, no stress test done outpatient. Reports extensive history of cardiac disease in family Troponin I was negative Echocardiogram 01/06/2025: Normal LV size and function with an LVEF of 55 to 60%. Diastolic dysfunction Stage I Normal RV size and function with moderately elevated RVSP at 45 and 50 mmHg. Mild aortic stenosis with a V-max of 2.6 m/s and mean PG of 30 mmHg. 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 Follows Dr. Wren outpatient, recently had EGD done showed gastric portal varices. Patient was referred to [facility] for further management. EGD 01/06/2025: Significant for grade 1 esophageal varices, gastric varices gastritis Patient had [address] abdomen only showed liver cirrhosis with portal hypertension. Patient had an CT abdomen with contrast on Wednesday 03/21 as she is getting a procedure similar to TIPS. Plan: -Resume home dose ursodiol -Resume home dose propranolol -Hold home dose p.o. Lasix due to JULIUS -Continue IV Protonix every 12 hourly -Monitor INR daily -Continue to monitor liver function test daily in the a.m. #Severe thrombocytopenia Patient has history of severe thrombocytopenia secondary to cirrhosis and hypersplenism Follows cancer treatment center Dr. Gresham for thrombocytopenia Plan: - Continue to monitor platelet level and transfuse as needed, will transfuse if platelet less than 10,000 #Pancytopenia Likely multifactorial in the setting 2/2 CKD stage IIIb, with possible GI bleed versus iron deficiency anemia ? White count 1.8, hemoglobin 9.5, platelet 15 Plan: -Continue to monitor H&H daily ? Neutropenic precautions #Dysfunctional uterine bleeding #Thickened endometrium Patient follows OB?[employer] CUSTODIAN outpatient, reports scheduled for hysterectomy in future Plan: - Resumed home dose medroxyprogesterone 3 times daily #Gout Patient reports history of gout Plan: Holding home colchicine due to JULIUS #Chronic pain Resume home dose gabapentin Health maintenance: Diet: Carb consistent diet with renal GI prophylaxis: Protonix 40 mg IV every 12 hourly DVT prophylaxis: SCDs CODE STATUS: Full code Dispo: Patient admitted to telemetry unit for further management of urinary tract infection in setting of neutropenia and acute kidney injury Case discussed with Attending Dr. Tracey. Sonia Lang PGY1 Disclaimer: This note was dictated by speech recognition. Minor errors in new account interviewer may be present due to voice recognition software. Attending Provider Attestation/Addendum I have discussed and was present for the essential components of the history, physical examination, diagnosis, and treatment plan with the resident. I agree with the patient's care as documented by the resident and amended herein by me. Micah Tracey DO. Patient seen and evaluated this AM. No acute events overnight, vital signs stable, patient afebrile, patient doing well, no subjective complaints. Significant labs include a WBC of 1.8, hemoglobin stable at 8.4, slight dip in platelet count today to 15. BUN 51, creatinine 3.1. Blood cultures demonstrating GNRs thus far. Final speciation pending. At this time we will continue Zosyn for UTI and bacteremia, will likely consult infectious disease tomorrow considering the patient's immunocompromise state and now bacteremia. Will hold on platelet transfusion unless it gets to below 10 as the patient has no signs of bleeding at this time. Will continue to monitor closely however patient is doing very well at this point. Although this document has been carefully reviewed, there may still be some phonetic and other typographical errors. These errors are purely grammatical due to imperfections in the software program and should not be construed in any way to compromise the substance of the patient's medical care during this visit.
--- NOTE | 2025-03-27 14:40 | PD.NEPHCONS ---
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 Gresham and going to follow new improvement specialist), CKD Stage III (follows with me), dysfunctional uterine bleeding, recurrent necrotizing fasciitis, diabetes mellitus type 2 and recurrent chest pain (follows Dr. Lima) presented to the ED on 03/26/2025 chief complaint of recurrent episodes of fever/chills spiking up to 104. Nephrology is consulted for JULIUS on CKD. Pt complaints of SOB cc:: cc: Avila Garsia MD Review of Systems Review of Systems Systems Reviewed: All systems reviewed, normal except as documented Meds Home Medications and Allergies Home Medications ?Medication ?Instructions ?Recorded ?Confirmed ?Type insulin glargine 100 unit/mL (3 35 unit subcut BID 09/30/18 03/27/25 History mL) subcutaneous pen (Basaglar KwikPen U-100 Insulin) ursodiol 300 mg capsule 300 mg PO TID 09/30/18 03/27/25 History hydrocodone 10 mg-acetaminophen 1 tab PO DAILY PRN Pain 01/27/20 03/27/25 History 325 mg tablet B-complex with vitamin C 1 tab PO QDAY 10/27/23 03/27/25 History ascorbic acid (vitamin C) 1,000 mg 1,000 mg PO DAILY 10/27/23 03/27/25 History tablet (Vitamin C) atorvastatin 10 mg tablet 10 mg PO HS 10/27/23 03/27/25 History cholecalciferol (vitamin D3) 25 25 mcg PO QDAY 10/27/23 03/27/25 History mcg (1,000 unit) tablet (Vitamin D3) gabapentin 400 mg capsule 400 mg PO BID 10/27/23 03/27/25 History insulin aspart U-100 100 unit/mL 10 unit subcut TIDPC 10/27/23 03/27/25 History (3 mL) subcutaneous pen propranolol 10 mg tablet 10 mg PO BID 10/27/23 03/27/25 History tizanidine 2 mg capsule 2 mg PO HSPRN PRN Muscle Spasm 10/27/23 03/27/25 History diclofenac sodium 1 % topical gel 2 g topical .every 6 hr 01/05/25 03/27/25 History ferrous sulfate 325 mg (65 mg 325 mg PO 2XD 01/05/25 03/27/25 History iron) tablet (FeroSul) medroxyprogesterone 10 mg tablet 10 mg PO 3XD 01/05/25 03/27/25 History semaglutide 0.25 mg or 0.5 mg (2 0.5 mg subcut .abdullahi week 01/05/25 03/27/25 History mg/3 mL) subcutaneous pen injector (Ozempic) zinc sulfate 50 mg zinc (220 mg) 50 mg PO QDAY 01/05/25 03/27/25 History capsule colchicine 0.6 mg tablet 0.6 mg PO QDAY 03/27/25 03/27/25 History Allergies Allergy/AdvReac Type Severity Reaction Status Date / Time tramadol Allergy Severe Hives Verified 03/25/25 18:27 ciprofloxacin Allergy Mild Rash Verified 03/25/25 18:27 Exam Vital Signs Temp Pulse Resp BP Pulse Ox O2 Del Method 97.7 F 82 20 153/66 H 95 Room Air 03/27/25 08:00 03/27/25 08:46 03/27/25 08:00 03/27/25 08:46 03/27/25 08:00 03/27/25 08:00 Narrative Exam Heart s1, s2 Chest landry basal crackles ext plus 1 edema Results Labs 03/27/25 05:40 03/27/25 05:40 Labs: Short CBC 03/27/25 Range/Units 05:40 WBC 1.8 L (3.6-11.0) Thou/mm3 Hgb 8.4 L (12.0-16.0) g/dL Hct 24.4 L (36.0-46.0) % Plt Count 15 L* (140-440) Thou/mm3 BMP 03/27/25 05:40 Sodium 139 Potassium 4.4 D Chloride 109 H Carbon Dioxide 22.0 BUN 51 H Creatinine 3.1 H Glucose 198 H Calcium 8.5 Liver Function 03/27/25 Range/Units 05:40 Total Bilirubin 2.1 H (0.3-1.2) mg/dL AST 26 (0-34) U/L ALT 18 (10-49) U/L Alkaline Phosphatase 52 (46-116) U/L Albumin 3.1 L (3.5-5.0) gm/dL Assessment & Plan Assessment and plan (1) Acute kidney injury superimposed on CKD: Status: Acute Assessment and plan: Creat is improving c/w supportive care avoid nephrotoxic meds discussed with primary team will monitor (2) Neutropenia: Status: Acute (3) Sepsis: Status: Acute (4) Cellulitis: Status: Acute (5) Diabetes: Status: Acute
--- NOTE | 2025-03-27 15:31 | PC.SS ---
This is 54-year-old, , single female who presented to the ED for vomiting, chills and fever. Patient appeared alert and oriented to self, place and situation. Patient was pleasant. Patient reported that she resides at home with her two sons, sister and nephew. Patient is independent with all ADLs, no DME use. Patient has a shower chair. Patient assigned her son, Jonatan as her medical decision maker. Patient's PCP is Dr. Aguilar. Patient follows-up with several specialties: Dr. Estrella, Dr. Neil, and Dr. Lima. When medically clear, patient will return home, no need for transportation.
[2025-03-27] MEDS: ATORVASTATIN CALCIUM 10 MG TABLET PO (20:44)
[2025-03-27] MEDS: INSULIN GLARGINE (Lantus) 5 UNIT/0.05 ML (PER 5 UNITS) 10 UNIT SC (21:01)
[2025-03-28] VITALS (8 sets, daily range): BP systolic 114–147; BP diastolic 48–79; PULSE 68–80; RESP 12–25; TEMP 36–36.7; O2SAT 93–98; BMI 52.7
[2025-03-28] MEDS: PIPER/TAZO 3.375 GM PREMIX 3.375 GM/50 ML BAG IV ×3 (05:31→21:41)
[2025-03-28 06:19] LABS: Basophils # (Auto) 0.0 Thou/mm3 (0.0-0.2); Basophils % (Auto) 0 % (0-2.5); Eosinophils # (Auto) 0.1 Thou/mm3 (0.0-0.5); Eosinophils % (Auto) 3 % (0-10); Hematocrit 25.2 % (36.0-46.0); Immature Granulocytes Auto 0.03 Thou/mm3 (0.00-0.00); Lymphocytes # (Auto) 0.4 Thou/mm3 (1.0-4.8); Lymphocytes % (Auto) 16 % (10-50); Mean Corpuscular HGB Conc 33.3 g/dl (31.0-37.0); Mean Corpuscular Hemoglobin 32.7 pg (25.0-35.0); Mean Corpuscular Volume 98 fL (80-100); Monocytes # (Auto) 0.4 Thou/mm3 (0.0-0.8); Monocytes % (Auto) 15 % (0-12); Neutrophils # (Auto) 1.6 Thou/mm3 (1.8-7.7); Neutrophils % (Auto) 64 % (37-80); Nucleated Red Blood Cell # 0.00 Thou/mm3 (0.00-0.00); Nucleated Red Blood Cell % 0 /100 WBC (0); RDW Standard Deviation 56.6 fL (36.4-46.3); Red Blood Count 2.57 Miln/mm3 (4.00-5.20)
[2025-03-28 06:38] LABS: Alanine Aminotransferase 17 U/L (10-49); Albumin, Serum 3.0 gm/dL (3.5-5.0); Albumin/Globulin Ratio 1.0 (1.2-2.2); Alkaline Phosphatase 47 U/L (46-116); Anion Gap 9 (7-16); Aspartate Amino Transferase 23 U/L (0-34); BUN/Creatinine Ratio 17 Ratio (12-20); Bilirubin,Total 1.7 mg/dL (0.3-1.2); Blood Urea Nitrogen 53 mg/dL (9-23); Calcium 8.3 mg/dL (8.3-10.6); Calcium (Corrected) 9.1 mg/dL (8.5-10.1); Carbon Dioxide 22.2 mMol/L (20.0-31.0); Chloride 109 mMol/L (98-107); Creatinine (Component) 3.2 mg/dL (0.6-1.3); Estimated Creatinine Clearance 25.6 mL/min (>60); Globulin 3.0 gm/dL (2.3-3.5); Glucose 190 mg/dL (74-106); Magnesium 1.9 mg/dL (1.6-2.6); Osmolality,Calculated 298 (275-295); Phosphorous 4.1 mg/dL (2.4-5.1); Potassium 4.0 mMol/L (3.4-5.1); Sodium 140 mMol/L (136-145); Total Protein 6.0 gm/dL (5.7-8.2); eGFR 17 See Note
[2025-03-28 06:47] LABS: White Blood Count 2.4 Thou/mm3 (3.6-11.0)
[2025-03-28 06:48] LABS: Hemoglobin 8.4 g/dL (12.0-16.0); Platelet Count 23 Thou/mm3 (140-440)
[2025-03-28 07:49] LABS: Slide Review Platelets confirmed
[2025-03-28] MEDS: INSULIN LISPRO (AdmeLOG) 1 UNIT/0.01 ML UNIT SC ×3 (08:21→17:45)
[2025-03-28] MEDS: GABAPENTIN 100 MG CAPSULE 400 MG PO ×2 (08:47→21:37)
[2025-03-28] MEDS: ZINC GLUCONATE 50 MG TABLET PO (08:48)
[2025-03-28] MEDS: FUROSEMIDE INJ 10 MG/ML 4ML VIAL 40 MG IVP (08:48)
[2025-03-28] MEDS: ASCORBIC ACID 250 MG TABLET 500 MG PO ×2 (08:48→21:38)
[2025-03-28] MEDS: VIT B12/Vit C/FA (Nephrovite) TABLET 1 TAB PO (08:48)
[2025-03-28] MEDS: PROPRANOLOL 10 MG TABLET PO ×2 (08:48→21:38)
[2025-03-28] MEDS: HYDROmorphone INJ 2 MG/ML VIAL 1 MG IVP ×3 (08:49→21:52)
[2025-03-28] MEDS: NYSTATIN PWD 15 GM BTL TOP ×2 (08:50→21:38)
--- NOTE | 2025-03-28 09:06 | PC.SS ---
Follow up note: On IV antibiotic Waiting for blood cultures. Pt will return home upon dc.
--- NOTE | 2025-03-28 11:29 | PD.IDPROG ---
Subjective Subjective Interval history: heavy set 54 y/o with ultram and cipro allergies noted. medical problems noted. urine noted. Exam Vital Signs Temp Pulse Resp BP Pulse Ox O2 Del Method 98.0 F 75 12 140/59 H 96 Room Air 03/28/25 08:00 03/28/25 08:48 03/28/25 08:00 03/28/25 08:48 03/28/25 08:00 03/28/25 08:00 Objective - Internal Medicine Labs 03/28/25 04:58 03/28/25 04:58 Labs: Laboratory Results - last 24 hr 03/28/25 04:58 WBC 2.4 L RBC 2.57 L Hgb 8.4 L Hct 25.2 L MCV 98 MCH 32.7 MCHC 33.3 RDW Std Deviation 56.6 H Plt Count 23 L* D Neut % (Auto) 64 Lymph % (Auto) 16 [place] % (Auto) 15 H Eos % (Auto) 3 Baso % (Auto) 0 Neut # (Auto) 1.6 L Lymph # (Auto) 0.4 L [place] # (Auto) 0.4 Eos # (Auto) 0.1 Baso # (Auto) 0.0 Immature Gran # (Auto) 0.03 H Absolute Nucleated RBC 0.00 Immature Gran % 1 H Nucleated RBC % 0 Sodium 140 Potassium 4.0 Chloride 109 H Carbon Dioxide 22.2 Anion Gap 9 BUN 53 H Creatinine 3.2 H Estim Creat Clear Calc 25.6 L eGFR 17 L BUN/Creatinine Ratio 17 Glucose 190 H Calculated Osmolality 298 H Calcium 8.3 Corrected Calcium 9.1 Phosphorus 4.1 Magnesium 1.9 Total Bilirubin 1.7 H AST 23 ALT 17 Alkaline Phosphatase 47 Total Protein 6.0 Albumin 3.0 L Globulin 3.0 Albumin/Globulin Ratio 1.0 L Misc Test Result Platelets confirmed Assessment & Plan A&P Narrative uti, esbl hld pbc thrombocytopenia from pbc low counts from pbc ckd 3-4 zosyn should work as well as merrem in this setting and the relatively short course of 1 week is noted. po options limited but may look at po cefuroxime as early as wed for home then if progress continues bactrim off the table with ckd ppi not a home med, so ok to stop if hgb stable. it is started by admin routinely but pt is not intubated so prevention of stress ulceration of limited value and quite uncertain in this setting. she is a full code. hiv is neg. will get full hep panel so it is on file, but problem more likely related to pbc as noted before it would be ravi to have a goals of care discussion with pt and family if you can Time Spent With Patient Time: Total time spent is greater than 50% in coordination of care (as documented) at patient's floor/unit and/or counseling patient:
[2025-03-28 12:56] LABS: HIV (1&2) Antibody Rapid Non-Reactive
[2025-03-28 13:17] LABS: Cocci Serology, IgG Negative (Negative)
--- NOTE | 2025-03-28 13:22 | ESCONSULT_ITS ---
RE: YAQUELIN STONE : 1970 DATE OF CONSULTATION: 03/28/2025 REFERRING PHYSICIAN: Dr. Garsia. REASON FOR CONSULTATION: Bacteremia with E. coli, and recurrent bacteremia. HISTORY OF PRESENT ILLNESS: The patient has had bacteremia with E. coli in December. Because of that, I am going to repeat the blood cultures and she has no source. She received therapy at that time. It was reasonable and appropriate. She improved and was eventually released. Her urine cultures were negative at the time, but she may have been pre-treated as she was this time as well. Urine was not obtained until the . She was admitted at that time. She admits to having some urinary symptoms. PAST MEDICAL HISTORY: Includes diabetes noting that She has some edema. She follows with an outpt primary provider. She has fatty liver disease, thrombocytopenia, chronic kidney disease and again is diabetic. PAST SURGICAL HISTORY: Includes prior cholecystectomy, two C-sections. She described the C-sections and a tubal ligation. She had tubal ligation after her last baby. ALLERGIES: ULTRAM AND CIPRO CAUSING ITCHING AND RASHES. IMMUNIZATIONS: Last tetanus is unknown. She does take flu shot every year. She has not had COVID vaccine or pneumococcal vaccine. FAMILY HISTORY: Positive for diabetes and hypertension. SOCIAL HISTORY: She lives with her sister and her sister's son and her two children. She is a former smoker and quit in 2015. There is no alcohol or drug use noted. She drinks alcohol most in very extreme moderation and very occasionally. She cut back further once her liver disease dx was made, although the source seems to be fatty liver. ASSESSMENT AND PLAN: The patient is a heavyset woman who reportedly had PBC, but does not appear to have that nor does imaging suggest that. She is not on any gogo which is usually considered a drug of choice. She follows with [facility] here locally here in [place] and goes to see Dr. Wren in [place]. She reports no other primary care doctors or specialists that she sees. She is listed as being a full code, but that probably needs to be discussed further with the primary care team. Her medical problems include hyperlipidemia suggested by her medications. fatty liver disease with cirrhosis and possibly Diabetes, A1c is pending. The examination shows her to be heavyset. She is a fair historian though and looks to be much improved. If repeat blood cultures are cleared and she is doing well, I may transition her to oral therapy by cefuroxime by Friday. DT: 12:08:38 TT: 12:33:00 Ref: [id number] - TID: [id number] MTDD
[2025-03-28 13:26] LABS: Hepatitis A Antibody IgM Non Reactive (Non React); Hepatitis B Core Antibody IgM Non Reactive (Non React); Hepatitis B Surface Antigen Non Reactive (Non React); Hepatitis C Antibody Non Reactive (Non React)
[2025-03-28 15:05] LABS: Glucose Estimated Average 117 mg/dL (80-131); Hemoglobin A1C 5.7 % Hgb (4.8-6.0)
--- NOTE | 2025-03-28 15:35 | ESPR_ITS ---
Documentation for date of: 03/28/25 Subjective Subjective Interval history: No acute events overnight.?Patient seen and examined at bedside this AM.?Patient was sitting up in bed feeling well, no acute complaints. Labs and vitals were reviewed.?No fevers overnight. Patient is pancytopenic secondary to end stage liver disease, labs show an improved WBC and platelet count today. Creatinine has been variable, today 3.2, JULIUS on CKD in the setting of infection. Urine culture was contaminated however blood cultures from 03/25/2025 showed E. coli bacteremia, ID recommended to continue with IV Zosyn and transition to PO cefuroxime by Friday. ID also re-ordered new set of cultures today. Patient has cipro allergy which is noted. Review of systems otherwise negative except what is mentioned above. Exam Vital Signs Temp Pulse Resp BP Pulse Ox O2 Del Method 96.8 F 77 25 H 121/52 L 93 L Room Air 03/28/25 12:00 03/28/25 12:00 03/28/25 12:00 03/28/25 12:00 03/28/25 12:03/28/25 12:00 Narrative Exam GENERAL APPEARANCE: AxOx4, obese female in no acute distress. HEENT: NC, AT. MMM. EOMI, clear conjunctiva, oropharynx clear. NECK: Supple without lymphadenopathy. No stiffness or restricted ROM. HEART: Regular rate and regular rhythm, normal S1/S2, no m/r/g LUNGS: CTAB, moving air well. No crackles or wheezes are heard. ABDOMEN: Soft, nontender, nondistended with good bowel sounds heard. Palpable spleen. BACK: No CVAT, no obvious deformity. Mild sacroiliac pain EXTREMITIES: 2 + bilateral lower extremity edema NEUROLOGICAL: Grossly nonfocal. Alert and oriented, moving all 4 extremities. CN not formally tested but appear grossly intact. Skin: Warm and dry without any rash. Psych: Appropriate mood and affect Objective Labs 03/28/25 04:58 03/28/25 04:58 Labs: Laboratory Results - last 24 hr 03/26/25 03/28/25 05:48 04:58 WBC 2.4 L RBC 2.57 L Hgb 8.4 L Hct 25.2 L MCV 98 MCH 32.7 MCHC 33.3 RDW Std Deviation 56.6 H Plt Count 23 L* D Neut % (Auto) 64 Lymph % (Auto) 16 [place] % (Auto) 15 H Eos % (Auto) 3 Baso % (Auto) 0 Neut # (Auto) 1.6 L Lymph # (Auto) 0.4 L [place] # (Auto) 0.4 Eos # (Auto) 0.1 Baso # (Auto) 0.0 Immature Gran # (Auto) 0.03 H Absolute Nucleated RBC 0.00 Immature Gran % 1 H Nucleated RBC % 0 Sodium 140 Potassium 4.0 Chloride 109 H Carbon Dioxide 22.2 Anion Gap 9 BUN 53 H Creatinine 3.2 H Estim Creat Clear Calc 25.6 L eGFR 17 L BUN/Creatinine Ratio 17 [address]ucose [address] Glu mg/dL 117 Hemoglobin A1c 5.7 Calculated Osmolality 298 H Calcium 8.3 Corrected Calcium 9.1 Phosphorus 4.1 Magnesium 1.9 Total Bilirubin 1.7 H AST 23 ALT 17 Alkaline Phosphatase 47 Total Protein 6.0 Albumin 3.0 L Globulin 3.0 Albumin/Globulin Ratio 1.0 L Coccidioides IgG Ab Negative Hepatitis A IgM Ab Non Reactive Hep Bs Antigen Non Reactive Hep B Core IgM Ab Non Reactive Hepatitis C Antibody Non Reactive HIV 1&2 Antibody Rapid Non-Reactive Misc Test Result Platelets confirmed Quality Measures Quality Measures VTE prophylaxis (SCDs) Assessment & Plan Assessment Current Active Medications: Generic Name Dose Route Start Last Admin Trade Name Jimmieq PRN Reason Stop Dose Admin Acetaminophen 650 mg 03/26/25 05:01 Acetaminophen 325 Mg Tablet PO 04/25/25 05:00 Q6H PRN Fever >101.5 Acetaminophen 650 mg 03/26/25 05:01 Acetaminophen 325 Mg Tablet PO 04/25/25 05:00 Q6H PRN PAIN SCALE 1-3 (mild Hydrocodone Bitart/Acetaminophen 1 tab 03/28/25 07:58 Hydrocodone/Apap 5/325 Tablet PO 04/01/25 11:02 Q6HR PRN PAIN SCALE 4-6 Ascorbic Acid 500 mg 03/26/25 09:00 03/28/25 08:48 Ascorbic Acid 250 Mg Tablet PO 04/25/25 08:59 500 mg BID SHERYL Administration Atorvastatin Calcium 10 mg 03/26/25 21:00 03/27/25 20:44 Atorvastatin Calcium 10 Mg Tablet PO 04/25/25 20:59 10 mg HS SHERYL Administration Dextrose 25 ml 03/26/25 05:06 Dextrose 50%-Water Inj 50 Ml Syringe IV 04/25/25 05:05 Q15MIN PRN BG 50-70 responsive npo pt Dextrose 50 ml 03/26/25 05:06 Dextrose 50%-Water Inj 50 Ml Syringe IV 04/25/25 05:05 Q15MIN PRN BG <50 OR BG <70 & pt unresponsive Furosemide 40 mg 03/27/25 09:00 03/28/25 08:48 Furosemide Inj 10 Mg/Ml 4ml Vial IVP 04/26/25 08:59 40 mg QDAY SHERYL Administration Gabapentin 400 mg 03/26/25 09:00 03/28/25 08:47 Gabapentin 100 Mg Capsule PO 04/25/25 08:59 400 mg BID SHERYL Administration Glucagon 1 mg 03/26/25 05:06 Glucagon Inj 1 Mg Vial IM Q15MIN PRN BG <70, and no IV access Hydromorphone HCl 1 mg 03/27/25 11:05 03/28/25 14:38 Hydromorphone Inj 2 Mg/Ml Vial IVP 03/31/25 05:00 1 mg Q4H PRN Administration BREAKTHROUGH PAIN (SEVERE) Protocol Piperacillin/Tazobactam/Dextrose 3.375 gm in 50 mls @ 12.5 mls/hr 03/26/25 14:00 03/28/25 14:29 Zosyn IV 04/02/25 13:59 12.5 mls/hr Q8HR SHERYL Administration Protocol Insulin Glargine 10 unit 03/26/25 21:00 03/27/25 21:01 Insulin Glargine (Lantus) 5 Unit/0.05 Ml (Per 5 Units) SC 04/25/25 20:59 10 unit HS SHERYL Administration Insulin Human Lispro 0 unit 03/26/25 07:30 03/28/25 12:09 Insulin Lispro (Admelog) 1 Unit/0.01 Ml Unit SC 04/25/25 07:29 2 unit AC SHERYL Administration Protocol Lidocaine 1 patch 03/27/25 11:03 Lidocaine 5% 1 Patch TOP 04/26/25 11:02 UD PRN Back Pain Protocol Medroxyprogesterone Acetate 10 mg 03/26/25 09:00 03/28/25 08:52 Medroxyprogesterone Acet 2.5 Mg Tablet PO 04/25/25 08:59 10 mg BID SHERYL Administration Nystatin 0 gm 03/27/25 11:15 03/28/25 08:50 Nystatin Pwd 15 Gm Btl TOP 04/26/25 11:14 1 applicatio BID SHERYL Administration Ondansetron HCl 4 mg 03/26/25 05:01 Ondansetron Inj 2 Mg/Ml Inj 2 Ml IVP 04/25/25 05:00 Q6H PRN NAUSEA OR VOMITING Protocol Pantoprazole Sodium 40 mg 03/26/25 09:00 03/28/25 08:49 Pantoprazole Inj 40 Mg Vial IVP 04/25/25 08:59 40 mg Q12HR SHERYL Administration Pharmacy Consult 1 each 03/26/25 05:12 Pharmacy Renal Dose Adjustment 1 Ea XX 04/25/25 05:11 PRN PRN CONSULT Propranolol HCl 10 mg 03/26/25 09:00 03/28/25 08:48 Propranolol 10 Mg Tablet PO 04/25/25 08:59 10 mg BID SHERYL Administration Sennosides 1 tab 03/26/25 05:01 Senna Tablet PO 04/25/25 05:00 BID PRN CONSTIPATION Protocol Ursodiol 300 mg 03/26/25 09:15 03/28/25 14:28 Ursodiol 300 Mg Capsule PO 04/25/25 09:14 300 mg TID SHERYL Administration Vitamin B Complex/Vit C/Folic Acid 1 tab 03/26/25 09:00 03/28/25 08:48 Vit B12/Vit C/Fa (Nephrovite) Tablet PO 04/25/25 08:59 1 tab QDAY SHERYL Administration Zinc Gluconate 50 mg 03/26/25 09:00 03/28/25 08:48 Zinc Gluconate 50 Mg Tablet PO 04/25/25 08:59 50 mg QDAY SHERYL Administration Plan The patient is a 54-year-old female with significant past medical history of 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 She is admitted to telemetry for further workup and management of sepsis due to UTI. #Complicated urinary tract infection #E. coli bacteremia ?In setting of immunocompromised state, patient SIRS positive in the emergency department, sofa score 8 however patient does have underlying chronic issues, low suspicion of sepsis, sepsis ruled out. ?Patient presented with fever spikes started 3 days ago associated with vomiting x 2. She denied any dysuria or burning sensation in urination. ?In the ED, patient met sepsis criteria SIRS 4/4. Labs were significant for pancytopenia with white count 1.8, hemoglobin 9.5, platelet count 15. ?Lactate unremarkable in ED, Pro-Feliberto elevated at 29.10, normal anion gap metabolic acidosis noted on admission. ?Urinalysis from 03/25 likely contaminated, repeat urinalysis shows urine blood 2+, RBC 18, WBC 47, squamous cell noted to be 6, bacteriuria ?CT abdomen pelvis without contrast showed no evidence of intra abdominal pathology. Liver cirrhosis with portal hypertension seen. CT lumbar spine showed no evidence of fracture. Degenerative changes only. ?Liver ultrasound showed cirrhosis ?Sepsis alert was initiated in the emergency department. Blood cultures were sent. ?Of note, patient was admitted previously for bacteremia in December 2024. ?03/25/2025 Blood cultures show E. coli bacteremia, ID consulted Plan: ? Continue IV Zosyn 3.375 g q8h ? Pain management as needed ? Cocci IgM negative ? Neutropenic precautions #JULIUS on stage IIIb CKD, including #Non-anion gap metabolic acidosis - resolved ?Likely cardiorenal, 2+ bilateral lower extremity edema noted versus prerenal due to contrast nephropathy vs in the setting of UTI ?Elevated BUN 40 and creatinine 3.4 baseline creatinine 2.3 ?Follows production generalist Dr. Neil for chronic kidney disease ?Patient had an CT abdomen with contrast on Wednesday 03/21 as she is getting a procedure similar to TIPS. Plan: - Will continue with Lasix 40 mg IV daily - Consulted nephrology, appreciate recommendations - Avoid nephrotoxic drugs - Renally dose medications #Heart failure with preserved EF 55 to 60%, not in exacerbation #History of mild aortic stenosis #Diastolic dysfunction stage I Presented with substernal chest pain, but most likely associated with severe vomiting EKG revealed sinus tachycardia, no ST or T wave changes, troponin 0.[address] Lima, catalogue librarian at [facility], reports having echocardiogram done, no stress test done outpatient. Reports extensive history of cardiac disease in family Troponin I was negative Echocardiogram 01/06/2025: Normal LV size and function with an LVEF of 55 to 60%. Diastolic dysfunction Stage I Normal RV size and function with moderately elevated RVSP at 45 and 50 mmHg. Mild aortic stenosis with a V-max of 2.6 m/s and mean PG of 30 mmHg. 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 Follows Dr. Wren outpatient, recently had EGD done showed gastric portal varices. Patient was referred to [facility] for further management. EGD 01/06/2025: Significant for grade 1 esophageal varices, gastric varices gastritis Patient had [address] abdomen only showed liver cirrhosis with portal hypertension. Patient had an CT abdomen with contrast on Wednesday 03/21 as she is getting a procedure similar to TIPS. Plan: -Resume home dose ursodiol -Resume home dose propranolol -Hold home dose p.o. Lasix due to JULIUS -Continue IV Protonix every 12 hourly -Monitor INR daily -Continue to monitor liver function test daily in the a.m. #Severe thrombocytopenia Patient has history of severe thrombocytopenia secondary to cirrhosis and hypersplenism Follows cancer treatment center Dr. Gresham for thrombocytopenia Plan: - Continue to monitor platelet level and transfuse as needed, will transfuse if platelet less than 10,000 #Pancytopenia Likely multifactorial in the setting 2/2 CKD stage IIIb, with possible GI bleed versus iron deficiency anemia ? White count 1.8, hemoglobin 9.5, platelet 15 Plan: - Continue to monitor H&H daily ? Neutropenic precautions #Dysfunctional uterine bleeding #Thickened endometrium Patient follows [facility] outpatient, reports scheduled for hysterectomy in future Plan: - Resumed home dose medroxyprogesterone 3 times daily #Gout Patient reports history of gout Plan: Holding home colchicine due to JULIUS #Chronic pain - Resume home dose gabapentin Health maintenance: Diet: Carb consistent diet with renal GI prophylaxis: Protonix 40 mg IV every 12 hourly DVT prophylaxis: SCDs CODE STATUS: Full code Dispo: Patient admitted to telemetry unit for further management of urinary tract infection in setting of neutropenia and acute kidney injury Patient plan of care was discussed with the attending physician, Dr. Tracey. Sheila Sam, PGY-2 Attending Provider Attestation/Addendum I have discussed and was present for the essential components of the history, physical examination, diagnosis, and treatment plan with the resident. I agree with the patient's care as documented by the resident and amended herein by me. Micah Tracey, DO. Patient seen and evaluated this AM. No acute events overnight, vital signs stable, patient afebrile, significant labs included WBC 2.4, hemoglobin 8.4, platelet count up trended to 23, BUN 53, creatinine slightly worse at 3.2. Urine cultures on 03/25 demonstrating E. coli, per infectious disease recommendations will continue Zosyn for approximately 1 week however may switch to p.o. cefuroxime on Friday. Patient will remain in the hospital until then. Appreciate specialist recommendations. Although this document has been carefully reviewed, there may still be some phonetic and other typographical errors. These errors are purely grammatical due to imperfections in the software program and should not be construed in any way to compromise the substance of the
[2025-03-28] MEDS: ATORVASTATIN CALCIUM 10 MG TABLET PO (21:39)
[2025-03-28] MEDS: INSULIN GLARGINE (Lantus) 5 UNIT/0.05 ML (PER 5 UNITS) 10 UNIT SC (21:53)
[2025-03-29] VITALS (9 sets, daily range): BP systolic 118–145; BP diastolic 52–76; PULSE 71–111; RESP 15–18; TEMP 36.1–36.7; O2SAT 90–98; BMI 51.9
[2025-03-29] MEDS: HYDROmorphone INJ 2 MG/ML VIAL 1 MG IVP ×4 (02:57→23:55)
[2025-03-29] MEDS: PIPER/TAZO 3.375 GM PREMIX 3.375 GM/50 ML BAG IV (05:48)
[2025-03-29 06:03] LABS: Basophils # (Auto) 0.0 Thou/mm3 (0.0-0.2); Basophils % (Auto) 0 % (0-2.5); Eosinophils # (Auto) 0.1 Thou/mm3 (0.0-0.5); Eosinophils % (Auto) 3 % (0-10); Hematocrit 26.8 % (36.0-46.0); Hemoglobin 9.2 g/dL (12.0-16.0); Immature Granulocytes Auto 0.15 Thou/mm3 (0.00-0.00); Lymphocytes # (Auto) 0.6 Thou/mm3 (1.0-4.8); Lymphocytes % (Auto) 18 % (10-50); Mean Corpuscular HGB Conc 34.3 g/dl (31.0-37.0); Mean Corpuscular Hemoglobin 32.9 pg (25.0-35.0); Mean Corpuscular Volume 96 fL (80-100); Monocytes # (Auto) 0.5 Thou/mm3 (0.0-0.8); Monocytes % (Auto) 15 % (0-12); Neutrophils # (Auto) 2.1 Thou/mm3 (1.8-7.7); Neutrophils % (Auto) 60 % (37-80); Nucleated Red Blood Cell # 0.02 Thou/mm3 (0.00-0.00); Nucleated Red Blood Cell % 1 /100 WBC (0); RDW Standard Deviation 55.5 fL (36.4-46.3); Red Blood Count 2.80 Miln/mm3 (4.00-5.20); White Blood Count 3.5 Thou/mm3 (3.6-11.0)
[2025-03-29 06:07] LABS: Platelet Count 26 Thou/mm3 (140-440)
[2025-03-29 06:29] LABS: Glucose Estimated Average 117 mg/dL (80-131); Hemoglobin A1C 5.7 % Hgb (4.8-6.0)
[2025-03-29 06:32] LABS: Alanine Aminotransferase 17 U/L (10-49); Albumin, Serum 3.3 gm/dL (3.5-5.0); Albumin/Globulin Ratio 1.1 (1.2-2.2); Alkaline Phosphatase 52 U/L (46-116); Anion Gap 10 (7-16); Aspartate Amino Transferase 28 U/L (0-34); BUN/Creatinine Ratio 14 Ratio (12-20); Bilirubin,Total 2.2 mg/dL (0.3-1.2); Blood Urea Nitrogen 48 mg/dL (9-23); Calcium 8.7 mg/dL (8.3-10.6); Calcium (Corrected) 9.3 mg/dL (8.5-10.1); Carbon Dioxide 22.8 mMol/L (20.0-31.0); Chloride 108 mMol/L (98-107); Creatinine (Component) 3.5 mg/dL (0.6-1.3); Estimated Creatinine Clearance 23.2 mL/min (>60); Globulin 3.1 gm/dL (2.3-3.5); Glucose 201 mg/dL (74-106); Magnesium 2.0 mg/dL (1.6-2.6); Osmolality,Calculated 299 (275-295); Phosphorous 4.9 mg/dL (2.4-5.1); Potassium 4.4 mMol/L (3.4-5.1); Sodium 141 mMol/L (136-145); Total Protein 6.4 gm/dL (5.7-8.2); eGFR 15 See Note
[2025-03-29] MEDS: INSULIN LISPRO (AdmeLOG) 1 UNIT/0.01 ML UNIT SC ×3 (07:22→17:35)
[2025-03-29] MEDS: PROPRANOLOL 10 MG TABLET PO ×2 (08:32→21:12)
[2025-03-29] MEDS: ZINC GLUCONATE 50 MG TABLET PO (08:32)
[2025-03-29] MEDS: VIT B12/Vit C/FA (Nephrovite) TABLET 1 TAB PO (08:32)
[2025-03-29] MEDS: ASCORBIC ACID 250 MG TABLET 500 MG PO ×2 (08:32→21:10)
[2025-03-29] MEDS: GABAPENTIN 100 MG CAPSULE 400 MG PO ×2 (08:32→21:10)
[2025-03-29] MEDS: NYSTATIN PWD 15 GM BTL TOP ×2 (08:38→21:12)
--- NOTE | 2025-03-29 09:05 | CHAP ---
Visited with patient giving encouragement, comfort and prayer.
[2025-03-29] MEDS: cefTRIAXone/D5w 1gm IV premix 1 GM/50 ML BAG IV (09:09)
[2025-03-29 09:48] LABS: Slide Review Platelets confirmed
[2025-03-29] MEDS: FUROSEMIDE INJ 10 MG/ML 4ML VIAL 40 MG IVP (11:41)
--- NOTE | 2025-03-29 14:28 | PD.RESPRO ---
Documentation for date of: 03/29/25 Subjective Subjective Interval history: Overnight events: No acute events overnight. Patient was seen and examined at bedside. AM vitals and labs reviewed. Patient was pleasant and easy to talk to. She was eager to continue her treatment at the hospital and did not have any complaints today. She has not noticed any new painful sensations and overall feels better than compared to when she was first admitted. Her AM Cr is 3.5, slightly elevated compared to yesterday where her Cr was 3.2. However, there does not appear to be any significant trend in her Cr over the past few days as it hovers from 3.1-3.5. eGFR continues to be low at 15. Review of systems otherwise negative except for what is mentioned above. Exam Vital Signs Temp Pulse Resp BP Pulse Ox O2 Del Method 97.8 F 71 18 127/67 97 Room Air 03/29/25 12:00 03/29/25 12:00 03/29/25 12:00 03/29/25 12:00 03/29/25 12:03/29/25 12:00 Narrative Exam Physical Exam: General: Alert, no acute distress. Skin: Warm, dry, intact, no obvious rash. Head: Normocephalic, atraumatic. Eye: Normal conjunctiva, PERRL. Cardiovascular: Regular rate and rhythm, no murmur, +S1/S2. Respiratory: Lungs are clear to auscultation, respirations unlabored, no crackles, no wheezing. Gastrointestinal: Soft, nontender, non-distended. No guarding or rebound tenderness. Extremities: No edema, no cyanosis, no clubbing. 2+ radial pulse bilaterally, 2+ posterior tibial pulse bilaterally. Neuro: No focal deficits observed. Conversant, moving all extremities. No overt cerebellar signs/incoordination. Psychiatric: Cooperative, appropriate affect. Objective Labs 03/30/25 05:13 03/30/25 05:13 Labs: Laboratory Results - last 24 hr 03/28/25 03/29/25 04:58 05:03 WBC 3.5 L D RBC 2.80 L Hgb 9.2 L Hct 26.8 L MCV 96 MCH 32.9 MCHC 34.3 RDW Std Deviation 55.5 H Plt Count 26 L* Neut % (Auto) 60 Lymph % (Auto) 18 [place] % (Auto) 15 H Eos % (Auto) 3 Baso % (Auto) 0 Neut # (Auto) 2.1 Lymph # (Auto) 0.6 L [place] # (Auto) 0.5 Eos # (Auto) 0.1 Baso # (Auto) 0.0 Immature Gran # (Auto) 0.15 H Absolute Nucleated RBC 0.02 H Immature Gran % 4 H Nucleated RBC % 1 H Sodium 141 Potassium 4.4 Chloride 108 H Carbon Dioxide 22.8 Anion Gap 10 BUN 48 H Creatinine 3.5 H Estim Creat Clear Calc 23.2 L eGFR 15 L BUN/Creatinine Ratio [address] Glu mg/dL 117 117 Hemoglobin A1c 5.7 5.7 Calculated Osmolality 299 H Calcium 8.7 Corrected Calcium 9.3 Phosphorus 4.9 Magnesium 2.0 Total Bilirubin 2.2 H D AST 28 ALT 17 Alkaline Phosphatase 52 Total Protein 6.4 Albumin 3.3 L Globulin 3.1 Albumin/Globulin Ratio 1.1 L Misc Test Result Platelets confirmed Quality Measures Quality Measures VTE prophylaxis (SCDs) Assessment & Plan Assessment Current Active Medications: Generic Name Dose Route Start Last Admin Trade Name Freq PRN Reason Stop Dose Admin Acetaminophen 650 mg 03/26/25 05:01 Acetaminophen 325 Mg Tablet PO 04/25/25 05:00 Q6H PRN Fever >101.5 Acetaminophen 650 mg 03/26/25 05:01 Acetaminophen 325 Mg Tablet PO 04/25/25 05:00 Q6H PRN PAIN SCALE 1-3 (mild Hydrocodone Bitart/Acetaminophen 1 tab 03/28/25 07:58 Hydrocodone/Apap 5/325 Tablet PO 04/01/25 11:02 Q6HR PRN PAIN SCALE 4-6 Ascorbic Acid 500 mg 03/26/25 09:00 03/29/25 08:32 Ascorbic Acid 250 Mg Tablet PO 04/25/25 08:59 500 mg BID SHERYL Administration Atorvastatin Calcium 10 mg 03/26/25 21:00 03/28/25 21:39 Atorvastatin Calcium 10 Mg Tablet PO 04/25/25 20:59 10 mg HS SHERYL Administration Dextrose 25 ml 03/26/25 05:06 Dextrose 50%-Water Inj 50 Ml Syringe IV 04/25/25 05:05 Q15MIN PRN BG 50-70 responsive npo pt Dextrose 50 ml 03/26/25 05:06 Dextrose 50%-Water Inj 50 Ml Syringe IV 04/25/25 05:05 Q15MIN PRN BG <50 OR BG <70 & pt unresponsive Furosemide 40 mg 03/27/25 09:00 03/28/25 08:48 Furosemide Inj 10 Mg/Ml 4ml Vial IVP 04/26/25 08:59 40 mg QDAY SHERYL Administration Gabapentin 400 mg 03/26/25 09:00 03/29/25 08:32 Gabapentin 100 Mg Capsule PO 04/25/25 08:59 400 mg BID SHERYL Administration Glucagon 1 mg 03/26/25 05:06 Glucagon Inj 1 Mg Vial IM Q15MIN PRN BG <70, and no IV access Hydromorphone HCl 1 mg 03/27/25 11:05 03/29/25 08:31 Hydromorphone Inj 2 Mg/Ml Vial IVP 03/31/25 05:00 1 mg Q4H PRN Administration BREAKTHROUGH PAIN (SEVERE) Protocol Ceftriaxone Sodium/Dextrose 1 gm in 50 mls @ 100 mls/hr 03/29/25 08:44 03/29/25 09:09 Rocephin/D5w 1gm Iv Premix IV 04/05/25 08:43 100 mls/hr QDAY SHERYL Administration Insulin Glargine 3 unit 03/29/25 21:00 Insulin Glargine (Lantus) 5 Unit/0.05 Ml (Per 5 Units) SC 04/28/25 20:59 HS SHERYL Insulin Human Lispro 0 unit 03/26/25 07:30 03/29/25 11:41 Insulin Lispro (Admelog) 1 Unit/0.01 Ml Unit SC 04/25/25 07:29 2 unit AC SHERYL Administration Protocol Lidocaine 1 patch 03/27/25 11:03 Lidocaine 5% 1 Patch TOP 04/26/25 11:02 UD PRN Back Pain Protocol Medroxyprogesterone Acetate 10 mg 03/26/25 09:00 03/29/25 10:32 Medroxyprogesterone Acet 2.5 Mg Tablet PO 04/25/25 08:59 10 mg BID SHERYL Administration Nystatin 0 gm 03/27/25 11:15 03/29/25 08:38 Nystatin Pwd 15 Gm Btl TOP 04/26/25 11:14 1 applicatio BID SHERYL Administration Ondansetron HCl 4 mg 03/26/25 05:01 Ondansetron Inj 2 Mg/Ml Inj 2 Ml IVP 04/25/25 05:00 Q6H PRN NAUSEA OR VOMITING Protocol Pantoprazole Sodium 40 mg 03/26/25 09:00 03/29/25 08:31 Pantoprazole Inj 40 Mg Vial IVP 04/25/25 08:59 40 mg Q12HR SHERYL Administration Pharmacy Consult 1 each 03/26/25 05:12 Pharmacy Renal Dose Adjustment 1 Ea XX 04/25/25 05:11 PRN PRN CONSULT Propranolol HCl 10 mg 03/26/25 09:00 03/29/25 08:32 Propranolol 10 Mg Tablet PO 04/25/25 08:59 10 mg BID SHERYL Administration Sennosides 1 tab 03/26/25 05:01 Senna Tablet PO 04/25/25 05:00 BID PRN CONSTIPATION Protocol Ursodiol 300 mg 03/26/25 09:15 03/29/25 14:18 Ursodiol 300 Mg Capsule PO 04/25/25 09:14 300 mg TID SHERYL Administration Vitamin B Complex/Vit C/Folic Acid 1 tab 03/26/25 09:00 03/29/25 08:32 Vit B12/Vit C/Fa (Nephrovite) Tablet PO 04/25/25 08:59 1 tab QDAY SHERYL Administration Zinc Gluconate 50 mg 03/26/25 09:00 03/29/25 08:32 Zinc Gluconate 50 Mg Tablet PO 04/25/25 08:59 50 mg QDAY SHERYL Administration Plan Mrs. Hopper is a 54 year old lady who has a relevant past medical history of liver cirrhosis 2/2 PBC & NAFLD, hypersplenism, and CKD III followed [address] Dr. Neil, who presented from home with fevers, chills, SOB, and a temperature of over 104F. Nephrology was consulted due to the patient's CKD III as Dr. Neil is her outpatient [employer]. #JULIUS on CKD III Prior history of seeing Dr. Neil. eGFR 19-41 in prior hospital visits. BUN 40 and Cr 3.4 on admission. - Continue to monitor Cr and eGFR - Avoid nephrotoxic medications - Nephrology will continue to follow and plan for appropriate outpatient followup Rest of conditions to continue current management per primary team: - Sepsis likely due to UTI in setting of immunocompromised state - Liver cirrhosis 2/2 PBC & NAFLD - Severe thrombocytopenia 2/2 liver cirrhosis & hypersplenism Patient was discussed with the Nephrology attending, Dr. Neil. Thank you for allowing us to participate in the care of this patient. Blanco Burgos, PGY-1 Attending Provider Attestation/Addendum Pt is seen and examined. labs reviewed. notes reviewed. agree with assessment and plan and findings of resident. Nathaniel Neil MD
--- NOTE | 2025-03-29 14:50 | ESPR_ITS ---
Documentation for date of: 03/29/25 Senior resident attestation: Patient evaluated at the bedside, currently being treated for E. coli bacteremia, the patient had intermediate sensitivity to Zosyn on microbiology, switched to ceftriaxone 2g qday per sensitivity. Pending infectious disease recommendations, regarding continuing IV antibiotic for the duration of treatment or switching to p.o. antibiotic cefuroxime. Pancytopenia noted, patient has massive splenomegaly and cirrhosis. Noted hyperglycemia, increased patient's sliding scale insulin to ACHS and step 2. Increased glargine to 8 units nightly. Patient evaluated and examined at the bedside, plan of care discussed with rest of the team including my attending physician, except as noted. Quresh PGY3 Subjective Subjective Interval history: No acute events overnight. Patient seen and examined at bedside this AM. Patient was sitting up in bed feeling well. Endorses lower back pain, which is chronic for her. Labs and vitals were reviewed.?No fevers overnight. Patient is pancytopenic secondary to end stage liver disease, labs show worsening WBC but improved platelet count today. Creatinine increased to 3.5, indicating worsening JULIUS on CKD in the setting of infection. Blood cultures from 03/25/2025 showed E. coli bacteremia, sensitive to ceftriaxone and intermediate sensitivity to Zosyn. ID recommended to transition to PO cefuroxime by Friday. Blood cultures from 03/28/25 negative for growth. Patient has cipro allergy. Review of systems otherwise negative except what is mentioned above. Exam Vital Signs Temp Pulse Resp BP Pulse Ox O2 Del Method 97.8 F 71 18 127/67 97 Room Air 03/29/25 12:03/29/25 12:03/29/25 12:03/29/25 12:03/29/25 12:03/29/25 12:00 Narrative Exam GENERAL APPEARANCE: AxOx4, obese female in no acute distress. HEART: Regular rate and regular rhythm, normal S1/S2, no m/r/g LUNGS: CTAB, moving air well. No crackles or wheezes are heard. ABDOMEN: Soft, nontender, nondistended with good bowel sounds heard. Palpable spleen. BACK: No CVAT, no obvious deformity. Mild sacroiliac pain EXTREMITIES: 1+ lower extremity edema bilaterally NEUROLOGICAL: Grossly nonfocal. Alert and oriented, moving all 4 extremities. CN not formally tested but appear grossly intact. Skin: Warm and dry without any rash. Psych: Appropriate mood and affect Objective Labs 03/30/25 05:13 03/29/25 05:03 Labs: Laboratory Results - last 24 hr 03/28/25 03/29/25 04:58 05:03 WBC 3.5 L D RBC 2.80 L Hgb 9.2 L Hct 26.8 L MCV 96 MCH 32.9 MCHC 34.3 RDW Std Deviation 55.5 H Plt Count 26 L* Neut % (Auto) 60 Lymph % (Auto) 18 [place] % (Auto) 15 H Eos % (Auto) 3 Baso % (Auto) 0 Neut # (Auto) 2.1 Lymph # (Auto) 0.6 L [place] # (Auto) 0.5 Eos # (Auto) 0.1 Baso # (Auto) 0.0 Immature Gran # (Auto) 0.15 H Absolute Nucleated RBC 0.02 H Immature Gran % 4 H Nucleated RBC % 1 H Sodium 141 Potassium 4.4 Chloride 108 H Carbon Dioxide 22.8 Anion Gap 10 BUN 48 H Creatinine 3.5 H Estim Creat Clear Calc 23.2 L eGFR 15 L BUN/Creatinine Ratio [address] Glu mg/dL 117 117 Hemoglobin A1c 5.7 5.7 Calculated Osmolality 299 H Calcium 8.7 Corrected Calcium 9.3 Phosphorus 4.9 Magnesium 2.0 Total Bilirubin 2.2 H D AST 28 ALT 17 Alkaline Phosphatase 52 Total Protein 6.4 Albumin 3.3 L Globulin 3.1 Albumin/Globulin Ratio 1.1 L Misc Test Result Platelets confirmed Quality Measures Quality Measures VTE prophylaxis (SCDs) Assessment & Plan Assessment Current Active Medications: Generic Name Dose Route Start Last Admin Trade Name Freq PRN Reason Stop Dose Admin Acetaminophen 650 mg 03/26/25 05:01 Acetaminophen 325 Mg Tablet PO 04/25/25 05:00 Q6H PRN Fever >101.5 Acetaminophen 650 mg 03/26/25 05:01 Acetaminophen 325 Mg Tablet PO 04/25/25 05:00 Q6H PRN PAIN SCALE 1-3 (mild Hydrocodone Bitart/Acetaminophen 1 tab 03/28/25 07:58 Hydrocodone/Apap 5/325 Tablet PO 04/01/25 11:02 Q6HR PRN PAIN SCALE 4-6 Ascorbic Acid 500 mg 03/26/25 09:00 03/29/25 08:32 Ascorbic Acid 250 Mg Tablet PO 04/25/25 08:59 500 mg BID SHERYL Administration Atorvastatin Calcium 10 mg 03/26/25 21:00 03/28/25 21:39 Atorvastatin Calcium 10 Mg Tablet PO 04/25/25 20:59 10 mg HS SHERYL Administration Dextrose 25 ml 03/26/25 05:06 Dextrose 50%-Water Inj 50 Ml Syringe IV 04/25/25 05:05 Q15MIN PRN BG 50-70 responsive npo pt Dextrose 50 ml 03/26/25 05:06 Dextrose 50%-Water Inj 50 Ml Syringe IV 04/25/25 05:05 Q15MIN PRN BG <50 OR BG <70 & pt unresponsive Furosemide 40 mg 03/27/25 09:00 03/28/25 08:48 Furosemide Inj 10 Mg/Ml 4ml Vial IVP 04/26/25 08:59 40 mg QDAY SHERYL Administration Gabapentin 400 mg 03/26/25 09:00 03/29/25 08:32 Gabapentin 100 Mg Capsule PO 04/25/25 08:59 400 mg BID SHERYL Administration Glucagon 1 mg 03/26/25 05:06 Glucagon Inj 1 Mg Vial IM Q15MIN PRN BG <70, and no IV access Hydromorphone HCl 1 mg 03/27/25 11:05 03/29/25 08:31 Hydromorphone Inj 2 Mg/Ml Vial IVP 03/31/25 05:00 1 mg Q4H PRN Administration BREAKTHROUGH PAIN (SEVERE) Protocol Ceftriaxone Sodium/Dextrose 1 gm in 50 mls @ 100 mls/hr 03/29/25 08:44 03/29/25 09:09 Rocephin/D5w 1gm Iv Premix IV 04/05/25 08:43 100 mls/hr QDAY SHERYL Administration Insulin Glargine 3 unit 03/29/25 21:00 Insulin Glargine (Lantus) 5 Unit/0.05 Ml (Per 5 Units) SC 04/28/25 20:59 HS SHERYL Insulin Human Lispro 0 unit 03/26/25 07:30 03/29/25 11:41 Insulin Lispro (Admelog) 1 Unit/0.01 Ml Unit SC 04/25/25 07:29 2 unit AC SHERYL Administration Protocol Lidocaine 1 patch 03/27/25 11:03 Lidocaine 5% 1 Patch TOP 04/26/25 11:02 UD PRN Back Pain Protocol Medroxyprogesterone Acetate 10 mg 03/26/25 09:00 03/29/25 10:32 Medroxyprogesterone Acet 2.5 Mg Tablet PO 04/25/25 08:59 10 mg BID SHERYL Administration Nystatin 0 gm 03/27/25 11:15 03/29/25 08:38 Nystatin Pwd 15 Gm Btl TOP 04/26/25 11:14 1 applicatio BID SHERYL Administration Ondansetron HCl 4 mg 03/26/25 05:01 Ondansetron Inj 2 Mg/Ml Inj 2 Ml IVP 04/25/25 05:00 Q6H PRN NAUSEA OR VOMITING Protocol Pantoprazole Sodium 40 mg 03/26/25 09:00 03/29/25 08:31 Pantoprazole Inj 40 Mg Vial IVP 04/25/25 08:59 40 mg Q12HR SHERYL Administration Pharmacy Consult 1 each 03/26/25 05:12 Pharmacy Renal Dose Adjustment 1 Ea XX 04/25/25 05:11 PRN PRN CONSULT Propranolol HCl 10 mg 03/26/25 09:00 03/29/25 08:32 Propranolol 10 Mg Tablet PO 04/25/25 08:59 10 mg BID SHERYL Administration Sennosides 1 tab 03/26/25 05:01 Senna Tablet PO 04/25/25 05:00 BID PRN CONSTIPATION Protocol Ursodiol 300 mg 03/26/25 09:15 03/29/25 14:18 Ursodiol 300 Mg Capsule PO 04/25/25 09:14 300 mg TID SHERYL Administration Vitamin B Complex/Vit C/Folic Acid 1 tab 03/26/25 09:00 03/29/25 08:32 Vit B12/Vit C/Fa (Nephrovite) Tablet PO 04/25/25 08:59 1 tab QDAY SHERYL Administration Zinc Gluconate 50 mg 03/26/25 09:00 03/29/25 08:32 Zinc Gluconate 50 Mg Tablet PO 04/25/25 08:59 50 mg QDAY SHERYL Administration Plan The patient is a 54-year-old female with significant past medical history of 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 She is admitted to telemetry for further workup and management of sepsis due to UTI. #Complicated urinary tract infection #E. coli bacteremia ?In setting of immunocompromised state, patient SIRS positive in the emergency department, sofa score 8 however patient does have underlying chronic issues, low suspicion of sepsis, sepsis ruled out. ?Patient presented with fever spikes started 3 days ago associated with vomiting x 2. She denied any dysuria or burning sensation in urination. ?In the ED, patient met sepsis criteria SIRS 4/4. Labs were significant for pancytopenia with white count 1.8, hemoglobin 9.5, platelet count 15. ?Lactate unremarkable in ED, Pro-Feliberto elevated at 29.10, normal anion gap metabolic acidosis noted on admission. ?Urinalysis from 03/25 likely contaminated, repeat urinalysis shows urine blood 2+, RBC 18, WBC 47, squamous cell noted to be 6, bacteriuria ?CT abdomen pelvis without contrast showed no evidence of intra abdominal pathology. Liver cirrhosis with portal hypertension seen. CT lumbar spine showed no evidence of fracture. Degenerative changes only. ?Liver ultrasound showed cirrhosis ?Sepsis alert was initiated in the emergency department. Blood cultures were sent. ?Of note, patient was admitted previously for bacteremia in December 2024. ?03/25/2025 Blood cultures show E. coli bacteremia, ? Cocci IgM negative -03/28/2025 Repeat blood cultures negative Plan: ? Start on IV ceftriaxone 1g based on culture sensitivity - Discontinue IV Zosyn (intermediate sensitivity) - Per ID, consider transition to cefuroxime PO if repeat cultures are negative ? Pain management as needed ? 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 Plan: - Lasix 40 mg IV 1 dose today per cardiology - clear for discharge from nephrology standpoint per Dr. Neil - Avoid nephrotoxic drugs - Renally dose medications #Heart failure with preserved EF 55 to 60%, not in exacerbation #History of mild aortic stenosis #Diastolic dysfunction stage I Presented with substernal chest pain, but most likely associated with severe vomiting EKG revealed sinus tachycardia, no ST or T wave changes, troponin 0.[address] 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 Reports extensive history of cardiac disease in family Troponin I was negative Echocardiogram 01/06/2025: Normal LV size and function with an LVEF of 55 to 60%. Diastolic dysfunction Stage I Normal RV size and function with moderately elevated RVSP at 45 and 50 mmHg. Mild aortic stenosis with a V-max of 2.6 m/s and mean PG of 30 mmHg. Moderate TR, mild to moderate MR, mild MAC Plan: ?s/p Lasix 40 mg 1 dose as above. 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 Follows Dr. Wren outpatient, recently had EGD done showed gastric portal varices. Patient was referred to [facility] for further management. EGD 01/06/2025: Significant for grade 1 esophageal varices, gastric varices gastritis Patient had [address] abdomen only showed liver cirrhosis with portal hypertension. Patient had an CT abdomen with contrast on Wednesday 03/21 as she is getting a procedure similar to TIPS. Plan: -Resume home dose ursodiol -Resume home dose propranolol -Hold home dose p.o. Lasix due to JULIUS -Continue IV Protonix every 12 hourly -Continue to monitor liver function test daily in the a.m. #Severe thrombocytopenia Patient has history of severe thrombocytopenia secondary to cirrhosis and hypersplenism Follows cancer treatment center Dr. Gresham for thrombocytopenia Plan: - Continue to monitor platelet level and transfuse as needed, will transfuse if platelet less than 10,000 #Pancytopenia Likely multifactorial in the setting 2/2 CKD stage IIIb, with possible GI bleed versus iron deficiency anemia ? White count 1.8, hemoglobin 9.5, platelet 15 Plan: - Continue to monitor H&H daily ? Neutropenic precautions #Dysfunctional uterine bleeding #Thickened endometrium Patient follows OB?[facility] outpatient, reports scheduled for hysterectomy in future Plan: - Resumed home dose medroxyprogesterone 3 times daily #Gout Patient reports history of gout Plan: - Holding home colchicine due to JULIUS #Chronic pain - Continue home gabapentin Health maintenance: Diet: Carb consistent diet with renal GI prophylaxis: Protonix 40 mg IV every 12 hourly DVT prophylaxis: SCDs CODE STATUS: Full code Dispo: Patient admitted to telemetry unit for further management of urinary tract infection in setting of neutropenia and acute kidney injury Patient plan of care was discussed with the attending physician, Dr. Tracey. Sonia Ward, PGY-1 Attending Provider Attestation/Addendum I have discussed and was present for the essential components of the history, physical examination, diagnosis, and treatment plan with the resident. I agree with the patient's care as documented by the resident and amended herein by me. Micah Tracey DO. Although this document has been carefully reviewed, there may still be some phonetic and other typographical errors. These errors are purely grammatical due to imperfections in the software program and should not be construed in any way to compromise the substance of the patient's medical care during this visit.
[2025-03-29] MEDS: LIDOCAINE 5% 1 PATCH TOP (17:34)
[2025-03-29] MEDS: ATORVASTATIN CALCIUM 10 MG TABLET PO (21:10)
[2025-03-29] MEDS: INSULIN GLARGINE (Lantus) 5 UNIT/0.05 ML (PER 5 UNITS) SC (21:11)
[2025-03-30] VITALS (7 sets, daily range): BP systolic 110–145; BP diastolic 51–78; PULSE 70–82; RESP 16–20; TEMP 36.4–36.9; O2SAT 96–98
[2025-03-30] MEDS: HYDROmorphone INJ 2 MG/ML VIAL 1 MG IVP ×3 (05:20→17:24)
[2025-03-30 05:54] LABS: Basophils # (Auto) 0.0 Thou/mm3 (0.0-0.2); Basophils % (Auto) 0 % (0-2.5); Eosinophils # (Auto) 0.1 Thou/mm3 (0.0-0.5); Eosinophils % (Auto) 5 % (0-10); Hematocrit 26.8 % (36.0-46.0); Hemoglobin 9.0 g/dL (12.0-16.0); Immature Granulocytes Auto 0.19 Thou/mm3 (0.00-0.00); Lymphocytes # (Auto) 0.8 Thou/mm3 (1.0-4.8); Lymphocytes % (Auto) 25 % (10-50); Mean Corpuscular HGB Conc 33.6 g/dl (31.0-37.0); Mean Corpuscular Hemoglobin 33.0 pg (25.0-35.0); Mean Corpuscular Volume 98 fL (80-100); Monocytes # (Auto) 0.3 Thou/mm3 (0.0-0.8); Monocytes % (Auto) 11 % (0-12); Neutrophils # (Auto) 1.6 Thou/mm3 (1.8-7.7); Neutrophils % (Auto) 53 % (37-80); Nucleated Red Blood Cell # 0.03 Thou/mm3 (0.00-0.00); Nucleated Red Blood Cell % 1 /100 WBC (0); RDW Standard Deviation 56.2 fL (36.4-46.3); Red Blood Count 2.73 Miln/mm3 (4.00-5.20); White Blood Count 3.1 Thou/mm3 (3.6-11.0)
[2025-03-30 06:01] LABS: Platelet Count 34 Thou/mm3 (140-440)
[2025-03-30 06:37] LABS: Alanine Aminotransferase 18 U/L (10-49); Albumin, Serum 3.3 gm/dL (3.5-5.0); Albumin/Globulin Ratio 1.0 (1.2-2.2); Alkaline Phosphatase 67 U/L (46-116); Anion Gap 7 (7-16); Aspartate Amino Transferase 26 U/L (0-34); BUN/Creatinine Ratio 17 Ratio (12-20); Bilirubin,Total 1.9 mg/dL (0.3-1.2); Blood Urea Nitrogen 59 mg/dL (9-23); Calcium 8.6 mg/dL (8.3-10.6); Calcium (Corrected) 9.2 mg/dL (8.5-10.1); Carbon Dioxide 25.1 mMol/L (20.0-31.0); Chloride 110 mMol/L (98-107); Creatinine (Component) 3.5 mg/dL (0.6-1.3); Estimated Creatinine Clearance 23.3 mL/min (>60); Globulin 3.2 gm/dL (2.3-3.5); Glucose 306 mg/dL (74-106); Magnesium 2.1 mg/dL (1.6-2.6); Osmolality,Calculated 311 (275-295); Phosphorous 4.2 mg/dL (2.4-5.1); Potassium 5.0 mMol/L (3.4-5.1); Sodium 142 mMol/L (136-145); Total Protein 6.5 gm/dL (5.7-8.2); eGFR 15 See Note
[2025-03-30] MEDS: INSULIN LISPRO (AdmeLOG) 1 UNIT/0.01 ML UNIT SC ×3 (07:46→17:23)
[2025-03-30 07:59] LABS: Slide Review Platelets confirmed
[2025-03-30] MEDS: GABAPENTIN 100 MG CAPSULE 400 MG PO (08:27)
[2025-03-30] MEDS: FUROSEMIDE INJ 10 MG/ML 4ML VIAL 40 MG IVP (08:28)
[2025-03-30] MEDS: PROPRANOLOL 10 MG TABLET PO (08:28)
[2025-03-30] MEDS: VIT B12/Vit C/FA (Nephrovite) TABLET 1 TAB PO (08:28)
[2025-03-30] MEDS: ASCORBIC ACID 250 MG TABLET 500 MG PO (08:28)
[2025-03-30] MEDS: ZINC GLUCONATE 50 MG TABLET PO (08:28)
[2025-03-30] MEDS: cefTRIAXone/D5w 1gm IV premix 1 GM/50 ML BAG IV (08:30)
--- NOTE | 2025-03-30 08:36 | PD.RESPRO ---
Documentation for date of: 03/30/25 Exam Vital Signs Temp Pulse Resp BP Pulse Ox O2 Del Method 97.5 F 73 20 133/59 H 97 Room Air 03/30/25 04:00 03/30/25 04:00 03/30/25 04:00 03/30/25 04:00 03/30/25 04:00 03/30/25 04:00 Objective Labs 03/30/25 05:13 03/30/25 05:13 Labs: Laboratory Results - last 24 hr 03/29/25 03/30/25 05:03 05:13 WBC 3.1 L RBC 2.73 L Hgb 9.0 L Hct 26.8 L MCV 98 MCH 33.0 MCHC 33.6 RDW Std Deviation 56.2 H Plt Count 34 L D Neut % (Auto) 53 Lymph % (Auto) 25 [place] % (Auto) 11 Eos % (Auto) 5 Baso % (Auto) 0 Neut # (Auto) 1.6 L Lymph # (Auto) 0.8 L [place] # (Auto) 0.3 Eos # (Auto) 0.1 Baso # (Auto) 0.0 Immature Gran # (Auto) 0.19 H Absolute Nucleated RBC 0.03 H Immature Gran % 6 H Nucleated RBC % 1 H Sodium 142 Potassium 5.0 D Chloride 110 H Carbon Dioxide 25.1 Anion Gap 7 BUN 59 H Creatinine 3.5 H Estim Creat Clear Calc 23.3 L eGFR 15 L BUN/Creatinine Ratio 17 Glucose 306 H D Calculated Osmolality 311 H Calcium 8.6 Corrected Calcium 9.2 Phosphorus 4.2 Magnesium 2.1 Total Bilirubin 1.9 H AST 26 ALT 18 Alkaline Phosphatase 67 D Total Protein 6.5 Albumin 3.3 L Globulin 3.2 Albumin/Globulin Ratio 1.0 L Misc Test Result Platelets confirmed Platelets confirmed Quality Measures Quality Measures VTE prophylaxis (SCDs) Assessment & Plan Assessment Current Active Medications: Generic Name Dose Route Start Last Admin Trade Name Freq PRN Reason Stop Dose Admin Acetaminophen 650 mg 03/26/25 05:01 Acetaminophen 325 Mg Tablet PO 04/25/25 05:00 Q6H PRN Fever >101.5 Acetaminophen 650 mg 03/26/25 05:01 Acetaminophen 325 Mg Tablet PO 04/25/25 05:00 Q6H PRN PAIN SCALE 1-3 (mild Hydrocodone Bitart/Acetaminophen 1 tab 03/28/25 07:58 Hydrocodone/Apap 5/325 Tablet PO 04/01/25 11:02 Q6HR PRN PAIN SCALE 4-6 Ascorbic Acid 500 mg 03/26/25 09:00 03/29/25 21:10 Ascorbic Acid 250 Mg Tablet PO 04/25/25 08:59 500 mg BID SHERYL Administration Atorvastatin Calcium 10 mg 03/26/25 21:00 03/29/25 21:10 Atorvastatin Calcium 10 Mg Tablet PO 04/25/25 20:59 10 mg HS SHERYL Administration Dextrose 25 ml 03/26/25 05:06 Dextrose 50%-Water Inj 50 Ml Syringe IV 04/25/25 05:05 Q15MIN PRN BG 50-70 responsive npo pt Dextrose 50 ml 03/26/25 05:06 Dextrose 50%-Water Inj 50 Ml Syringe IV 04/25/25 05:05 Q15MIN PRN BG <50 OR BG <70 & pt unresponsive Furosemide 40 mg 03/27/25 09:00 03/28/25 08:48 Furosemide Inj 10 Mg/Ml 4ml Vial IVP 04/26/25 08:59 40 mg QDAY SHERYL Administration Gabapentin 400 mg 03/26/25 09:00 03/29/25 21:10 Gabapentin 100 Mg Capsule PO 04/25/25 08:59 400 mg BID SHERYL Administration Glucagon 1 mg 03/26/25 05:06 Glucagon Inj 1 Mg Vial IM Q15MIN PRN BG <70, and no IV access Hydromorphone HCl 1 mg 03/27/25 11:05 03/30/25 05:20 Hydromorphone Inj 2 Mg/Ml Vial IVP 03/31/25 05:00 1 mg Q4H PRN Administration BREAKTHROUGH PAIN (SEVERE) Protocol Ceftriaxone Sodium/Dextrose 1 gm in 50 mls @ 100 mls/hr 03/29/25 08:44 03/29/25 09:09 Rocephin/D5w 1gm Iv Premix IV 04/05/25 08:43 100 mls/hr QDAY SHERYL Administration Insulin Glargine 8 unit 03/30/25 21:00 Insulin Glargine (Lantus) 5 Unit/0.05 Ml (Per 5 Units) SC 04/29/25 20:59 HS SHERYL Insulin Human Lispro 0 unit 03/30/25 07:30 03/30/25 07:46 Insulin Lispro (Admelog) 1 Unit/0.01 Ml Unit SC 04/29/25 07:29 4 unit ACHS SHERYL Administration Protocol Lidocaine 1 patch 03/27/25 11:03 03/29/25 17:34 Lidocaine 5% 1 Patch TOP 04/26/25 11:02 1 patch UD PRN Administration Back Pain Protocol Medroxyprogesterone Acetate 10 mg 03/26/25 09:00 03/29/25 21:11 Medroxyprogesterone Acet 2.5 Mg Tablet PO 04/25/25 08:59 10 mg BID SHERYL Administration Nystatin 0 gm 03/27/25 11:15 03/29/25 21:12 Nystatin Pwd 15 Gm Btl TOP 04/26/25 11:14 1 applicatio BID SHERYL Administration Ondansetron HCl 4 mg 03/26/25 05:01 Ondansetron Inj 2 Mg/Ml Inj 2 Ml IVP 04/25/25 05:00 Q6H PRN NAUSEA OR VOMITING Protocol Pantoprazole Sodium 40 mg 03/26/25 09:00 03/29/25 21:11 Pantoprazole Inj 40 Mg Vial IVP 04/25/25 08:59 40 mg Q12HR SHERYL Administration Pharmacy Consult 1 each 03/26/25 05:12 Pharmacy Renal Dose Adjustment 1 Ea XX 04/25/25 05:11 PRN PRN CONSULT Propranolol HCl 10 mg 03/26/25 09:00 03/29/25 21:12 Propranolol 10 Mg Tablet PO 04/25/25 08:59 10 mg BID SHERYL Administration Sennosides 1 tab 03/26/25 05:01 Senna Tablet PO 04/25/25 05:00 BID PRN CONSTIPATION Protocol Ursodiol 300 mg 03/26/25 09:15 03/30/25 05:14 Ursodiol 300 Mg Capsule PO 04/25/25 09:14 300 mg TID SHERYL Administration Vitamin B Complex/Vit C/Folic Acid 1 tab 03/26/25 09:00 03/29/25 08:32 Vit B12/Vit C/Fa (Nephrovite) Tablet PO 04/25/25 08:59 1 tab QDAY SHERYL Administration Zinc Gluconate 50 mg 03/26/25 09:00 03/29/25 08:32 Zinc Gluconate 50 Mg Tablet PO 04/25/25 08:59 50 mg QDAY SHERYL Administration
[2025-03-30] MEDS: NYSTATIN PWD 15 GM BTL TOP (09:00)
--- NOTE | 2025-03-30 09:12 | PC.SS ---
Follow up note: Blood cultures pending. Dr. Daniel's recommendations pending. On IV antibiotic. Pt will return home upon dc.
--- NOTE | 2025-03-30 09:51 | ESDS_ITS ---
Planned Discharge Date 03/30/25 DS: Providers Provider Date of admission: 03/26/25 06:02 Primary care physician: Franko Aguilar MD Admitting Provider: Avila Garsia MD Attending Provider on Admission: Avila Garsia MD Consults: 03/26/25 06:06 Consult to Nephrology Routine Comment: Consulting Provider: Nathaniel Neil 03/26/25 18:39 [facility] Referral - Nutrition Routine Comment: Positive screening for nutrition needs. [facility] Referral - Transportation Routine Comment: Positive screening for transportation needs. [facility] Referral - Utilities Routine Comment: Positive screening for utility assistance needs. 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 ED Course: ED vitals: temp 102.9, 155/67, HR 108, RR 20, 93% on RA ED labs: EKG revealed sinus tachycardia, no ST or T wave changes, troponin 0.061. Elevated BUN 40, creatinine 3.4. UA and blood cultures ordered. CXR ordered. ED meds: Tylenol 500 mg p.o. x 1, normal saline 1 L x 1, Rocephin 1 g x 1, morphine 5 mg IV x 1, octreotide 50 mcg x 1, Zofran 4 mg x 2 and Protonix 80 mg IV x 1. Reason for hospitalization: Patient was admitted to telemetry for further work up and management of sepsis secondary to UTI, met sepsis criteria SIRS 4/4 and also had elevated pro-alex and normal anion gap metabolic acidosis. Labs were signficant for pancytopenia and thrombocytopenia secondary to cirrhosis and hypersplenism for which she follows Dr. Gresham. Repeat urinalysis showed urine blood and WBC 47. Blood culture was positive for E coli bacterimia. Of note, patient was admitted previously for bacteremia in December 2024 but was not treated with proper antibiotics. Infectious disease was consulted and agreed with treatment with IV Zosyn. This was later changed to IV ceftriaxone based on culture sensitivity. Recommended transition to cefuroxime PO as repeat blood cultures were negative. Patient presented with elevated creatinine and developed lower extremity edema after a few days. Nephrology and cardiology were consulted. Based on patient's history of CKD (follows Dr. 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 WBC and platelet count improved without intervention. Home colchicine for gout was held due to UJLIUS but all other home meds were resumed inpatient. Discharge Recommendations: Recommend continuing antibiotic cefuroxime twice daily for 7 more days to complete treatment for bacterial infection. Please follow-up with your primary care provider within 3 to 5 days of discharge from hospital to go over your recent medications. In case of worsening symptoms, recurrent fever or mental status changes, please return to the emergency room. Hospital Diagnoses: #Complicated urinary tract infection #E. coli bacteremia #JULIUS on stage IIIb CKD, including #Non-anion gap metabolic acidosis - resolved #Heart failure with preserved EF 55 to 60%, not in exacerbation #History of mild aortic stenosis #Diastolic dysfunction stage I #Liver Cirrhosis secondary to #PBC #Hyperbilirubinemia #Hx Grade 1 esophageal varices #Hx of Gastric varices #Status post EGD 01/06/2025 #Severe thrombocytopenia #Pancytopenia #Dysfunctional uterine bleeding #Thickened endometrium #Gout #Chronic pain Disposition: Safe discharge to home. Time Spent with Patient Time attestation: Total time spent providing and/or coordinating discharge services: at least 30 minutes of care coordination Time spent: Greater than 30 minutes Exam Vital Signs Temp Pulse Resp BP Pulse Ox O2 Del Method 97.8 F 77 16 139/59 H 98 Room Air 03/30/25 08:00 03/30/25 08:28 03/30/25 08:00 03/30/25 08:28 03/30/25 08:00 03/30/25 08:00 Narrative Exam GENERAL APPEARANCE: AxOx4, obese female in no acute distress. HEART: Regular rate and regular rhythm, normal S1/S2, no m/r/g LUNGS: CTAB, moving air well. No crackles or wheezes are heard. ABDOMEN: Soft, nontender, nondistended with good bowel sounds heard. Palpable spleen. BACK: No CVAT, no obvious deformity. Mild sacroiliac pain, chronic. EXTREMITIES: No lower extremity edema bilaterally NEUROLOGICAL: Grossly nonfocal. Alert and oriented, moving all 4 extremities. CN not formally tested but appear grossly intact. Skin: Warm and dry without any rash. Psych: Appropriate mood and affect Discharge Plan Plan Patient Disposition: HOME (Self Care) Patient condition on transfer: Stable Care Plan Goals: Recommend continuing antibiotic cefuroxime twice daily for 7 more days to complete treatment for bacterial infection. Please follow-up with your primary care provider within 3 to 5 days of discharge from hospital to go over your recent medications. In case of worsening symptoms, recurrent fever or mental status changes, please return to the emergency room. Prescriptions/Referrals Prescriptions/Med Rec: New cefuroxime axetil 250 mg Tablet 250 mg PO BID 7 Days Qty: 14 0RF Continued hydrocodone-acetaminophen 10-325 mg tablet 1 tab PO DAILY PRN (Reason: Pain) Patient Comments: TAKE ONE TABLET BY MOUTH THREE TIMES DAILY NEEDED FOR PAIN Rx Instructions: 1-2 tabs ursodiol 300 mg Capsule 300 mg PO TID insulin glargine [Basaglar KwikPen U-100 Insulin] 100 unit/mL (3 mL) Insulin Pen 35 unit SUBCUT BID gabapentin 400 mg capsule 400 mg PO BID Patient Comments: TAKE ONE CAPSULE BY MOUTH TWICE DAILY FOR NERVE PAIN propranolol 10 mg tablet 10 mg PO BID Patient Comments: TAKE ONE TABLET BY MOUTH TWICE DAILY FOR BLOOD PRESSURE atorvastatin 10 mg tablet 10 mg PO HS Patient Comments: TAKE ONE TABLET BY MOUTH EVERY DAY FOR CHOLESTEROL cholecalciferol (vitamin D3) [Vitamin D3] 25 mcg (1,000 unit) Tablet 25 mcg PO QDAY insulin aspart U-100 100 unit/mL (3 mL) Insulin Pen 10 unit SUBCUT TIDPC Rx Instructions: TID after meals B-complex with vitamin C Tablet 1 tab PO QDAY ascorbic acid (vitamin C) [Vitamin C] 1,000 mg Tablet 1,000 mg PO DAILY tizanidine 2 mg capsule 2 mg PO HSPRN PRN (Reason: Muscle Spasm) Patient Comments: TAKE ONE CAPSULE BY MOUTH TWICE DAILY NEEDED FOR MUSCLE SPASMS Rx Instructions: 1-2 tabs Ozempic 0.25 mg or 0.5 mg (2 mg/3 mL) pen injector 0.5 mg SUBCUT .abdullahi week Patient Comments: INJECT 0.5 MG SUBCUTANEOUSLY EVERY WEEK FOR DIABETES ferrous sulfate [FeroSul] 325 mg (65 mg iron) tablet 325 mg PO 2XD Patient Comments: TAKE ONE TABLET BY MOUTH TWICE DAILY WITH ORANGE JUICE diclofenac sodium 1 % gel 2 g TOPICAL .every 6 hr Patient Comments: APPLY TWO GRAM EXTERNALLY EVERY 6 HOURS NEEDED FOR PAIN medroxyprogesterone 10 mg tablet 10 mg PO 3XD Rx Instructions: 3 tablets daily zinc sulfate 50 mg zinc (220 mg) Capsule 50 mg PO QDAY furosemide 20 mg tablet 20 mg PO DAILY Qty: 7 0RF Patient Comments: TAKE ONE TABLET BY MOUTH EVERY MORNING A DIURETIC colchicine 0.6 mg tablet 0.6 mg PO QDAY Referrals: Franko Aguilar MD [Primary Care Provider] - Patient/Caregiver Discharge Instructions Education Materials: Urinary Tract Infections in Women, Sepsis, ED CYSTITIS Female Adult Print Language: Yoruba Stand Alone Forms: Lucie Award Info., Patient Portal Info Letter Discharge Order Discharge Orders: Discharge (Routine); Ordered 03/30/25 Ordered By: Viktor Jyoner Quality Discharge Quality Measures VTE prophylaxis Attestestation MD Attestation I have discussed and was present for the essential components of the history, physical examination, diagnosis, and treatment plan with the resident. I agree with the patient's care as documented by the resident and amended herein by me. Micah Tracey DO. Although this document has been carefully reviewed, there may still be some phonetic and other typographical errors. These errors are purely grammatical due to imperfections in the software program and should not be construed in any way to compromise the substance of the patient's medical care during this visit.
--- NOTE | 2025-03-30 12:51 | PD.IDPROG ---
Subjective Subjective Interval history: bc neg. dc planning noted. Exam Vital Signs Temp Pulse Resp BP Pulse Ox O2 Del Method 97.8 F 77 16 139/59 H 98 Room Air 03/30/25 08:00 03/30/25 08:28 03/30/25 08:00 03/30/25 08:28 03/30/25 08:00 03/30/25 08:00 Narrative Exam limited eval today Objective - Internal Medicine Labs 03/30/25 05:13 03/30/25 05:13 Labs: Laboratory Results - last 24 hr 03/30/25 05:13 WBC 3.1 L RBC 2.73 L Hgb 9.0 L Hct 26.8 L MCV 98 MCH 33.0 MCHC 33.6 RDW Std Deviation 56.2 H Plt Count 34 L D Neut % (Auto) 53 Lymph % (Auto) 25 [place] % (Auto) 11 Eos % (Auto) 5 Baso % (Auto) 0 Neut # (Auto) 1.6 L Lymph # (Auto) 0.8 L [place] # (Auto) 0.3 Eos # (Auto) 0.1 Baso # (Auto) 0.0 Immature Gran # (Auto) 0.19 H Absolute Nucleated RBC 0.03 H Immature Gran % 6 H Nucleated RBC % 1 H Sodium 142 Potassium 5.0 D Chloride 110 H Carbon Dioxide 25.1 Anion Gap 7 BUN 59 H Creatinine 3.5 H Estim Creat Clear Calc 23.3 L eGFR 15 L BUN/Creatinine Ratio 17 Glucose 306 H D Calculated Osmolality 311 H Calcium 8.6 Corrected Calcium 9.2 Phosphorus 4.2 Magnesium 2.1 Total Bilirubin 1.9 H AST 26 ALT 18 Alkaline Phosphatase 67 D Total Protein 6.5 Albumin 3.3 L Globulin 3.2 Albumin/Globulin Ratio 1.0 L Misc Test Result Platelets confirmed Assessment & Plan A&P Narrative uti, with bacteremia hld fatty liver disease thrombocytopenia from liver disease low counts from liver disease presumably and appear to be chronic ckd 3-4, likely dm in origin zosyn should work as well as merrem in this setting and the relatively short course of 1 week is noted. po options limited but may look at po cefuroxime as early as wed for home then if progress continues bactrim off the table with ckd she is a full code. hiv is neg. will get full hep panel so it is on file, but problem more likely related to fatty liver as per u/s and not pbc it would be ravi to have a goals of care discussion with pt and family if you can will see again prn Time Spent With Patient Time: Total time spent is greater than 50% in coordination of care (as documented) at patient's floor/unit and/or counseling patient:
== END 2025-03-30 19:48 | disposition home or self-care (01) | DRG 720 ==
LOC: SERX 03-26 06:07 → SERHOLD 03-26 06:08 → S2NX 03-26 18:07
PROVIDERS: Internal Medicine Infectious Disease; Physician Assistant; Student in an Organized Health Care Education/Training Program; Admitting Provider Internal Medicine; Emergency Provider Emergency Medicine; PCP Internal Medicine; Visit Provider Student in an Organized Health Care Education/Training Program
DX: A41.51 Sepsis due to Escherichia coli [E. coli] (principal); K74.60 Unspecified cirrhosis of liver; I13.0 Hypertensive heart and chronic kidney disease with heart failure and stage 1 through stage 4 chronic kidney disease, or unspecified chronic kidney disease; N18.32 Chronic kidney disease, stage 3b; D61.818 Other pancytopenia; E87.20 Acidosis, unspecified; I49.3 Ventricular premature depolarization; Z87.891 Personal history of nicotine dependence; D84.9 Immunodeficiency, unspecified; E66.9 Obesity, unspecified; Z68.43 Body mass index [BMI] 50.0-59.9, adult; F41.9 Anxiety disorder, unspecified; K76.6 Portal hypertension; N17.9 Acute kidney failure, unspecified; E11.22 Type 2 diabetes mellitus with diabetic chronic kidney disease; N93.8 Other specified abnormal uterine and vaginal bleeding; M10.9 Gout, unspecified; G89.29 Other chronic pain; N39.0 Urinary tract infection, site not specified; D69.59 Other secondary thrombocytopenia; D73.1 Hypersplenism; E11.65 Type 2 diabetes mellitus with hyperglycemia; L03.90 Cellulitis, unspecified; I50.30 Unspecified diastolic (congestive) heart failure; K72.10 Chronic hepatic failure without coma; M72.6 Necrotizing fasciitis; I85.10 Secondary esophageal varices without bleeding; R04.0 Epistaxis; E78.00 Pure hypercholesterolemia, unspecified; Z79.85 Long-term (current) use of injectable non-insulin antidiabetic drugs; Z88.1 Allergy status to other antibiotic agents; R93.89 Abnormal findings on diagnostic imaging of other specified body structures; I86.4 Gastric varices
CPT/HCPCS: 36415; 71045; 72131; 74176; 76705; 80053; 80061; 80074; 81001; 83036; 83605; 83690; 83735; 83880; 84100; 84145; 84484; 85025; 85610; 85730; 86331; 86635; 86703; 87040; 87077; 87081; 87086; 87186; 87400; 87811; 93005; 96365; 96366; 96367; 96372; 96375; 96376; 99285; J0696; J1171; J1815; J1938; J2270; J2405; J2470; J2543; J3490; J7030; A9270

== ENCOUNTER → 2025-04-13 | Outpatient (CLI) | payer MEDICAID, SELFPAY ==
[2025-04-13 10:35] LABS: Basophils # (Auto) 0.0 Thou/mm3 (0.0-0.2); Basophils % (Auto) 1 % (0-2.5); Eosinophils # (Auto) 0.1 Thou/mm3 (0.0-0.5); Eosinophils % (Auto) 4 % (0-10); Hematocrit 26.1 % (36.0-46.0); Hemoglobin 8.9 g/dL (12.0-16.0); Immature Granulocytes Auto 0.00 Thou/mm3 (0.00-0.00); Lymphocytes # (Auto) 0.4 Thou/mm3 (1.0-4.8); Lymphocytes % (Auto) 23 % (10-50); Mean Corpuscular HGB Conc 34.1 g/dl (31.0-37.0); Mean Corpuscular Hemoglobin 33.5 pg (25.0-35.0); Mean Corpuscular Volume 98 fL (80-100); Monocytes # (Auto) 0.2 Thou/mm3 (0.0-0.8); Monocytes % (Auto) 9 % (0-12); Neutrophils # (Auto) 1.2 Thou/mm3 (1.8-7.7); Neutrophils % (Auto) 63 % (37-80); Nucleated Red Blood Cell # 0.00 Thou/mm3 (0.00-0.00); Nucleated Red Blood Cell % 0 /100 WBC (0); RDW Standard Deviation 59.6 fL (36.4-46.3); Red Blood Count 2.66 Miln/mm3 (4.00-5.20)
[2025-04-13 10:44] LABS: Platelet Count 28 Thou/mm3 (140-440); White Blood Count 1.9 Thou/mm3 (3.6-11.0)
[2025-04-13 11:01] LABS: Albumin, Serum 3.1 gm/dL (3.5-5.0); Anion Gap 9 (7-16); BUN/Creatinine Ratio 17 Ratio (12-20); Blood Urea Nitrogen 34 mg/dL (9-23); Calcium 9.2 mg/dL (8.3-10.6); Calcium (Corrected) 9.9 mg/dL (8.5-10.1); Carbon Dioxide 22.3 mMol/L (20.0-31.0); Chloride 115 mMol/L (98-107); Creatinine (Component) 2.0 mg/dL (0.6-1.3); Glucose 109 mg/dL (74-106); Osmolality,Calculated 299 (275-295); Phosphorous 4.9 mg/dL (2.4-5.1); Potassium 5.2 mMol/L (3.4-5.1); Sodium 146 mMol/L (136-145); eGFR 29 See Note
[2025-04-13 12:30] LABS: Slide Review Platelets confirmed
== END | disposition home or self-care (01) ==
LOC: COPL 08:51
PROVIDERS: PCP Internal Medicine; Referring Provider Internal Medicine; Visit Provider Internal Medicine
DX: I12.9 Hypertensive chronic kidney disease with stage 1 through stage 4 chronic kidney disease, or unspecified chronic kidney disease (principal); E11.22 Type 2 diabetes mellitus with diabetic chronic kidney disease; N18.31 Chronic kidney disease, stage 3a; D69.6 Thrombocytopenia, unspecified; E11.65 Type 2 diabetes mellitus with hyperglycemia; E66.9 Obesity, unspecified; E88.09 Other disorders of plasma-protein metabolism, not elsewhere classified; K74.3 Primary biliary cirrhosis; N17.9 Acute kidney failure, unspecified; R60.9 Edema, unspecified
CPT/HCPCS: 36415; 80069; 85025

== ENCOUNTER → 2025-04-22 | Outpatient (CLI) | payer MEDICAID, SELFPAY ==
[2025-04-22 08:55] LABS: Misc Send Out* See Sep Rpt
[2025-04-22 09:27] LABS: Basophils # (Auto) 0.0 Thou/mm3 (0.0-0.2); Basophils % (Auto) 1 % (0-2.5); Eosinophils # (Auto) 0.1 Thou/mm3 (0.0-0.5); Eosinophils % (Auto) 5 % (0-10); Hematocrit 27.6 % (36.0-46.0); Hemoglobin 9.2 g/dL (12.0-16.0); Immature Granulocytes Auto 0.00 Thou/mm3 (0.00-0.00); Immature Reticulocyte Fraction 19.8 % (3.0-15.9); Lymphocytes # (Auto) 0.5 Thou/mm3 (1.0-4.8); Lymphocytes % (Auto) 26 % (10-50); Mean Corpuscular HGB Conc 33.3 g/dl (31.0-37.0); Mean Corpuscular Hemoglobin 33.7 pg (25.0-35.0); Mean Corpuscular Volume 101 fL (80-100); Monocytes # (Auto) 0.2 Thou/mm3 (0.0-0.8); Monocytes % (Auto) 8 % (0-12); Neutrophils # (Auto) 1.2 Thou/mm3 (1.8-7.7); Neutrophils % (Auto) 60 % (37-80); Nucleated Red Blood Cell # 0.00 Thou/mm3 (0.00-0.00); Nucleated Red Blood Cell % 0 /100 WBC (0); RDW Standard Deviation 57.1 fL (36.4-46.3); Red Blood Count 2.73 Miln/mm3 (4.00-5.20); Reticulocyte % (Auto) 3.4 % (0.5-1.5); Reticulocyte Absolute Auto 93.1 Biln/L (25.0-75.0); Reticulocyte Hgb Content 35.4 pg (28.0-35.0)
[2025-04-22 09:36] LABS: Platelet Count 22 Thou/mm3 (140-440); White Blood Count 2.0 Thou/mm3 (3.6-11.0)
[2025-04-22 09:48] LABS: Folate > 24.00 ng/mL (>5.38); Vitamin B12 1050 pg/mL (211-911)
[2025-04-22 09:53] LABS: Slide Review Platelets confirmed
[2025-04-22 09:56] LABS: Alanine Aminotransferase 14 U/L (10-49); Albumin, Serum 3.2 gm/dL (3.5-5.0); Albumin/Globulin Ratio 1.0 (1.2-2.2); Alkaline Phosphatase 59 U/L (46-116); Anion Gap 11 (7-16); Aspartate Amino Transferase 29 U/L (0-34); BUN/Creatinine Ratio 14 Ratio (12-20); Bilirubin,Total 1.5 mg/dL (0.3-1.2); Blood Urea Nitrogen 31 mg/dL (9-23); Calcium 9.0 mg/dL (8.3-10.6); Calcium (Corrected) 9.6 mg/dL (8.5-10.1); Carbon Dioxide 23.4 mMol/L (20.0-31.0); Chloride 115 mMol/L (98-107); Creatinine (Component) 2.2 mg/dL (0.6-1.3); Globulin 3.1 gm/dL (2.3-3.5); Glucose 112 mg/dL (74-106); LDH (Lactate Dehydrogenase) 242 U/L (120-246); Osmolality,Calculated 303 (275-295); Potassium 4.7 mMol/L (3.4-5.1); Sodium 149 mMol/L (136-145); Total Protein 6.3 gm/dL (5.7-8.2); eGFR 26 See Note
[2025-04-22 10:02] LABS: Ferritin 88 ng/mL (7.3-270.7); Iron 88 mcg/dL (50-170); Percent Iron Saturation 31 % (20-55); Total Iron Binding Capacity 277 mcg/dL (250-425); Unsaturated Iron Binding 189 (225-295)
[2025-04-27 06:40] LABS: Erythropoietin (EPO)* 26.8 mIU/mL (2.6-18.5)
== END | disposition home or self-care (01) ==
LOC: SCTO 08:36
PROVIDERS: PCP Family Medicine; Referring Provider Nurse Practitioner Family; Visit Provider Nurse Practitioner Family
DX: D69.59 Other secondary thrombocytopenia (principal)
CPT/HCPCS: 36415; 80053; 82607; 82668; 82728; 82746; 83540; 83550; 83615; 85025; 85046

== ENCOUNTER 2025-04-28 14:03 | Outpatient (RCR) | payer MEDICAID, SELFPAY | END 2025-04-28 23:59 | disposition home or self-care (01) | LOC: SCTC 14:03 | PROVIDERS: PCP Internal Medicine; Referring Provider Internal Medicine; Visit Provider Nurse Practitioner Family | DX: D69.6 Thrombocytopenia, unspecified (principal); K74.60 Unspecified cirrhosis of liver; Z87.440 Personal history of urinary (tract) infections; E11.22 Type 2 diabetes mellitus with diabetic chronic kidney disease; N18.9 Chronic kidney disease, unspecified; D63.1 Anemia in chronic kidney disease; R16.1 Splenomegaly, not elsewhere classified; K76.6 Portal hypertension | CPT/HCPCS: 99212; G0463 ==

== ENCOUNTER 2025-05-08 06:01 | Observation (INO) | payer MEDICAID, SELFPAY ==
--- NOTE | 2025-05-08 06:04 | EKG_ITS ---
[facility] Test Date: 2025-05-08 Pat Name: YAQUELIN STONE Department: Room: - Gender: Female Valuer: : [id number] Requested By: ED Temporary Provider Order Number: [id number] Reading MD: ED Temporary Provider Measurements Intervals [place] Rate: 78 P: 11 ME: 161 QRS: -17 QRSD: 93 T: 58 QT: 369 QTc: 422 Interpretive Statements SINUS RHYTHM Compared to ECG 03/25/2025 19:28:39 Sinus tachycardia no longer present Myocardial infarct finding no longer present /store/S0/[id number].pdf
--- NOTE | 2025-05-08 06:23 | XR_ITS ---
Examination: AP chest single view Technique AP upright portable chest single view Date and time: May 08, 2025 0712 hours Comparison March 25, 2025 INDICATIONS: Chest pain shortness of breath today FINDINGS: Mild prominence left ventricle No pneumonia or pulmonary edema. Moderate osteopenia Impression : No pneumonia or pulmonary edema
--- NOTE | 2025-05-08 06:25 | PD.EDADULT ---
ED General RME/HPI General Chief complaint: General Adult/Misc Complain Stated complaint: SHAKY,FEELS WEIRD Time Seen by Provider: 05/08/25 06:23 Arrival date/time: 05/08/25 06:01 Related Data Home Medications ?Medication ?Instructions ?Recorded ?Confirmed insulin glargine 100 unit/mL (3 35 unit subcut BID 09/30/18 03/27/25 mL) subcutaneous pen (Basaglar KwikPen U-100 Insulin) ursodiol 300 mg capsule 300 mg PO TID 09/30/18 03/27/25 hydrocodone 10 mg-acetaminophen 1 tab PO DAILY PRN Pain 01/27/20 03/27/25 325 mg tablet B-complex with vitamin C 1 tab PO QDAY 10/27/23 03/27/25 ascorbic acid (vitamin C) 1,000 mg 1,000 mg PO DAILY 10/27/23 03/27/25 tablet (Vitamin C) atorvastatin 10 mg tablet 10 mg PO HS 10/27/23 03/27/25 cholecalciferol (vitamin D3) 25 25 mcg PO QDAY 10/27/23 03/27/25 mcg (1,000 unit) tablet (Vitamin D3) gabapentin 400 mg capsule 400 mg PO BID 10/27/23 03/27/25 insulin aspart U-100 100 unit/mL 10 unit subcut TIDPC 10/27/23 03/27/25 (3 mL) subcutaneous pen propranolol 10 mg tablet 10 mg PO BID 10/27/23 03/27/25 tizanidine 2 mg capsule 2 mg PO HSPRN PRN Muscle Spasm 10/27/23 03/27/25 diclofenac sodium 1 % topical gel 2 g topical .every 6 hr 01/05/25 03/27/25 ferrous sulfate 325 mg (65 mg 325 mg PO 2XD 01/05/25 03/27/25 iron) tablet (FeroSul) medroxyprogesterone 10 mg tablet 10 mg PO 3XD 01/05/25 03/27/25 semaglutide 0.25 mg or 0.5 mg (2 0.5 mg subcut .abdullahi week 01/05/25 03/27/25 mg/3 mL) subcutaneous pen injector (Ozempic) zinc sulfate 50 mg zinc (220 mg) 50 mg PO QDAY 01/05/25 03/27/25 capsule colchicine 0.6 mg tablet 0.6 mg PO QDAY 03/27/25 03/27/25 Previous Rx's ?Medication ?Instructions ?Recorded furosemide 20 mg tablet 20 mg PO DAILY Shortness of 01/08/25 Breath, Increased weight by 1-2kg in a day #7 tabs Allergies Allergy/AdvReac Type Severity Reaction Status Date / Time tramadol Allergy Severe Hives Verified 05/08/25 06:02 ciprofloxacin Allergy Mild Rash Verified 05/08/25 06:02 Course Orders Category Date Time Status EKG (ED ONLY) *Do not use* NOW Care 05/08/25 06:04 Completed Fingerstick [Bedside Blood Glucose] NOW Care 05/08/25 06:04 Active EKG (ED Only) Stat Exams 05/08/25 06:04 Draft XR chest 2V Stat Exams 05/08/25 06:23 Ordered Ammonia Stat Lab 05/08/25 06:23 Ordered B-Type Natriuretic Peptide Stat Lab 05/08/25 06:23 Ordered CBC Stat Lab 05/08/25 06:23 Ordered Comprehensive Metabolic Panel Stat Lab 05/08/25 06:23 Ordered Drug Screen,Urine Stat Lab 05/08/25 06:23 Ordered LDH (Lactate Dehydrogenase) Stat Lab 05/08/25 06:23 Ordered Magnesium Stat Lab 05/08/25 06:23 Ordered Partial Thromboplastin Time Stat Lab 05/08/25 06:23 Ordered Prothrombin Time with INR Stat Lab 05/08/25 06:23 Ordered Troponin I Stat Lab 05/08/25 06:23 Ordered Urinalysis Stat Lab 05/08/25 06:23 Ordered VBG [Venous Blood Gas] Stat Lab 05/08/25 06:24 Ordered Discharge Plan Prescriptions/Referrals Prescriptions/Med Rec: No Action hydrocodone-acetaminophen 10-325 mg tablet 1 tab PO DAILY PRN (Reason: Pain) Patient Comments: TAKE ONE TABLET BY MOUTH THREE TIMES DAILY NEEDED FOR PAIN Rx Instructions: 1-2 tabs ursodiol 300 mg Capsule 300 mg PO TID insulin glargine [Basaglar KwikPen U-100 Insulin] 100 unit/mL (3 mL) Insulin Pen 35 unit SUBCUT BID gabapentin 400 mg capsule 400 mg PO BID Patient Comments: TAKE ONE CAPSULE BY MOUTH TWICE DAILY FOR NERVE PAIN propranolol 10 mg tablet 10 mg PO BID Patient Comments: TAKE ONE TABLET BY MOUTH TWICE DAILY FOR BLOOD PRESSURE atorvastatin 10 mg tablet 10 mg PO HS Patient Comments: TAKE ONE TABLET BY MOUTH EVERY DAY FOR CHOLESTEROL cholecalciferol (vitamin D3) [Vitamin D3] 25 mcg (1,000 unit) Tablet 25 mcg PO QDAY insulin aspart U-100 100 unit/mL (3 mL) Insulin Pen 10 unit SUBCUT TIDPC Rx Instructions: TID after meals B-complex with vitamin C Tablet 1 tab PO QDAY ascorbic acid (vitamin C) [Vitamin C] 1,000 mg Tablet 1,000 mg PO DAILY tizanidine 2 mg capsule 2 mg PO HSPRN PRN (Reason: Muscle Spasm) Patient Comments: TAKE ONE CAPSULE BY MOUTH TWICE DAILY NEEDED FOR MUSCLE SPASMS Rx Instructions: 1-2 tabs Ozempic 0.25 mg or 0.5 mg (2 mg/3 mL) pen injector 0.5 mg SUBCUT .abdullahi week Patient Comments: INJECT 0.5 MG SUBCUTANEOUSLY EVERY WEEK FOR DIABETES ferrous sulfate [FeroSul] 325 mg (65 mg iron) tablet 325 mg PO 2XD Patient Comments: TAKE ONE TABLET BY MOUTH TWICE DAILY WITH ORANGE JUICE diclofenac sodium 1 % gel 2 g TOPICAL .every 6 hr Patient Comments: APPLY TWO GRAM EXTERNALLY EVERY 6 HOURS NEEDED FOR PAIN medroxyprogesterone 10 mg tablet 10 mg PO 3XD Rx Instructions: 3 tablets daily zinc sulfate 50 mg zinc (220 mg) Capsule 50 mg PO QDAY furosemide 20 mg tablet 20 mg PO DAILY Qty: 7 0RF Patient Comments: TAKE ONE TABLET BY MOUTH EVERY MORNING A DIURETIC colchicine 0.6 mg tablet 0.6 mg PO QDAY Patient/Caregiver Discharge Instructions Print Language: Malay
--- NOTE | 2025-05-08 06:36 | PD.EDADULT ---
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 Son additionally reports the patient has had several episodes of vomiting since last night and is repeating herself which is new. Per son, the patient was last known well at midnight and at 03:00 AM today had complained of feeling weird . In the ED, patient repeatedly states I'm constipated and appears mildly confused. She denies cough, shortness of breath, abdominal pain, or urinary symptoms. Related Data Home Medications ?Medication ?Instructions ?Recorded ?Confirmed insulin glargine 100 unit/mL (3 35 unit subcut BID 09/30/18 03/27/25 mL) subcutaneous pen (Basaglar KwikPen U-100 Insulin) ursodiol 300 mg capsule 300 mg PO TID 09/30/18 03/27/25 hydrocodone 10 mg-acetaminophen 1 tab PO DAILY PRN Pain 01/27/20 03/27/25 325 mg tablet B-complex with vitamin C 1 tab PO QDAY 10/27/23 03/27/25 ascorbic acid (vitamin C) 1,000 mg 1,000 mg PO DAILY 10/27/23 03/27/25 tablet (Vitamin C) atorvastatin 10 mg tablet 10 mg PO HS 10/27/23 03/27/25 cholecalciferol (vitamin D3) 25 25 mcg PO QDAY 10/27/23 03/27/25 mcg (1,000 unit) tablet (Vitamin D3) gabapentin 400 mg capsule 400 mg PO BID 10/27/23 03/27/25 insulin aspart U-100 100 unit/mL 10 unit subcut TIDPC 10/27/23 03/27/25 (3 mL) subcutaneous pen propranolol 10 mg tablet 10 mg PO BID 10/27/23 03/27/25 tizanidine 2 mg capsule 2 mg PO HSPRN PRN Muscle Spasm 10/27/23 03/27/25 diclofenac sodium 1 % topical gel 2 g topical .every 6 hr 01/05/25 03/27/25 ferrous sulfate 325 mg (65 mg 325 mg PO 2XD 01/05/25 03/27/25 iron) tablet (FeroSul) medroxyprogesterone 10 mg tablet 10 mg PO 3XD 01/05/25 03/27/25 semaglutide 0.25 mg or 0.5 mg (2 0.5 mg subcut .abdullahi week 01/05/25 03/27/25 mg/3 mL) subcutaneous pen injector (Ozempic) zinc sulfate 50 mg zinc (220 mg) 50 mg PO QDAY 01/05/25 03/27/25 capsule colchicine 0.6 mg tablet 0.6 mg PO QDAY 03/27/25 03/27/25 Previous Rx's ?Medication ?Instructions ?Recorded furosemide 20 mg tablet 20 mg PO DAILY Shortness of 01/08/25 Breath, Increased weight by 1-2kg in a day #7 tabs Allergies Allergy/AdvReac Type Severity Reaction Status Date / Time tramadol Allergy Severe Hives Verified 05/08/25 06:02 ciprofloxacin Allergy Mild Rash Verified 05/08/25 06:02 Review of Systems Review of Systems Systems Reviewed: All systems reviewed, normal except as documented Past Medical History Past Medical History CARDIAC: Positive Edema and Hypertension RESPIRATORY: Positive Sleep Apnea GASTROINTESTINAL: Positive Gastrointestinal Disorders, Cirrhosis, Esophageal Varices, Irritable Bowel and Obesity GENITOURINARY: Positive Renal Disease REPRODUCTIVE: Positive Previous Pregnancies MUSCULOSKELETAL: Positive Arthritis, Degenerative Disk Disease and Gout ENT: Positive Cataracts ENDOCRINE: Positive Endocrine Disorders and Diabetes Mellitus Type 2 HEMATOLOGIC: Positive Blood Disorders and Anemia PSYCHO/SOCIAL: Positive Depression and Anxiety OTHER HISTORY: Positive Blood Transfusions, MRSA, Chicken Pox and Measles Family History FAMILY HISTORY: Positive Family Cardiac Disorders and Family Surgery Surgical History SURGICAL: Positive Abdominal Surgery, Tubal Ligation and Section Social History SMOKING STATUS: Never smoker SECOND HAND EXPOSURE: Yes SUBSTANCE USE: does not use ED Exam Narrative Physical exam: GENERAL APPEARANCE: Awake, mildly confused, well-developed, morbidly obese HEENT: Normocephalic, atraumatic; pupils equal, round, reactive to light; EOMI; slight scleral icterus; mucous membranes pink, moist; oropharynx clear NECK: Supple LUNGS: CTABL; no wheezes, no rales, no rhonchi HEART: Regular rate, regular rhythm; normal S1, S2; no murmurs ABDOMEN: surgical scar noted, small spot of ecchymosis to right mid abdomen; non distended; normal BS; soft, no tenderness, no guarding, no rebound; no masses, no organomegaly, no hernia EXTREMITIES: atraumatic; 2+ swelling to bilateral lower extremities with peripheral vascular disease changes NEUROLOGIC: awake; mildly confused; cranial nerves II-XII grossly intact PSYCHIATRIC: appropriate mood and affect SKIN: warm, dry, normal color; no rashes Course Course Course Narrative: Labs were reviewed showing thrombocytopenia and leukopenia. CKD that is stable compared to previous labs. Noted significantly elevated ammonia level (232). Lactulose has been ordered. Mild increase in total bilirubin from 1.5 last month (04/24/2025) to 2.1 currently. Chest XRAY interpreted by me shows cardiomegaly with no significant interval change from prior imaging. Patient will require admission. Will discuss further management with the hospitalist team. I spoke with hospitalist team regarding admission and will come evaluate the patient. Quality Measures none Orders Category Date Time Status Bedside COVID-19 Antigen Test NOW Care 05/08/25 06:54 Active Bedside Influenza A&B Antigen Test NOW Care 05/08/25 06:55 Active COVID-19 Screening Questionnaire NOW Care 05/08/25 08:08 Active Decision to Admit X1 Care 05/08/25 08:08 Active EKG (ED ONLY) *Do not use* NOW Care 05/08/25 06:04 Completed Fingerstick [Bedside Blood Glucose] NOW Care 05/08/25 06:[address] abdomen pelvis wo con Stat Exams 05/08/25 08:[address] head/brain wo con Stat Exams 05/08/25 07:34 Completed EKG (ED Only) Stat Exams 05/08/25 06:04 Draft XR chest 2V Stat Exams 05/08/25 06:23 Completed Ammonia Stat Lab 05/08/25 07:04 Completed B-Type Natriuretic Peptide Stat Lab 05/08/25 07:04 Completed CBC Stat Lab 05/08/25 07:04 Completed Comprehensive Metabolic Panel Stat Lab 05/08/25 07:04 Completed Drug Screen,Urine Stat Lab 05/08/25 06:23 Ordered LDH (Lactate Dehydrogenase) Stat Lab 05/08/25 07:04 Completed Magnesium Stat Lab 05/08/25 07:04 Completed Partial Thromboplastin Time Stat Lab 05/08/25 07:04 Completed Prothrombin Time with INR Stat Lab 05/08/25 07:04 Completed Troponin I Stat Lab 05/08/25 07:04 Completed Urinalysis Stat Lab 05/08/25 06:23 Ordered VBG [Venous Blood Gas] Stat Lab 05/08/25 08:09 Completed Lactulose Syrup [Enulose Syrup] Med 05/08/25 08:05 Discontinued 20 gm PO X1 ONE Discharge Plan Plan Patient Disposition: Admit Acute Care w/in Hospital Problem List Clinical Impression: Hepatic encephalopathy, Thrombocytopenia, Leukocytopenia, CKD (chronic kidney disease) MDM Narrative [facility] hospital course: IAnu am scribing for and in the presence of Dr. Drake. Clinical Information Provided by patient Medical Records Reviewed [facility] (I reviewed admission from 03/25/2025 through 03/30/2025) Meds/Rx Considered, not Ordered None Labs/Rad/Tests considered, not Ordered None Chronic Illness/Social Conditions which may negatively complicate care or outcome(s)-explain: Liver disease EKG Interpretation EKG #1: Date/time of EK05/08/2025 @ 06:08 AM. EKG interpretation: Normal sinus rhythm, no STEMI, rate 78. Lab Interpretation Labs: see narrative above Imaging Radiology reports / interpretation(s): Ordering Physician: Britany Drake MD Date of Service: 05/08/25 Procedure(s): XR chest 2V Accession Number(s): [id number] cc: Flip Ferraro MD; Gustavo Alfonso MD; Britany Drake MD~ Examination: AP chest single view Technique AP upright portable chest single view Date and time: May 08, 2025 0712 hours Comparison March 25, 2025 INDICATIONS: Chest pain shortness of breath today FINDINGS: Mild prominence left ventricle No pneumonia or pulmonary edema. Moderate osteopenia Impression : No pneumonia or pulmonary edema Dictated By: Gustavo Alfonso MD Signed By: <Electronically signed by Gustavo Alfonso MD in [place]> 05/08/25 0752 Ordering Physician: Britany Drake MD Date of Service: 05/08/25 Procedure(s): CT head/brain wo con Accession Number(s): [id number] cc: Flip Ferraro MD; Gustavo Alfonso MD; Britany Drake MD~ Examination: CT brain head without contrast. 2-D sagittal coronal reconstructions Date and time of exam:2024, 0825 hours Comparison December 27, 2024 INDICATIONS: Altered mental status this morning, onset slurred speech generalized body weakness December 27, 2024, brain MRI December 27, 2024, demyelinating disease CTDI: vol (mGy):82.5 DLP: (mGycm):1689 Technique: Multiple CT axial sections of the brain have been obtained, 5 mm slice thickness. Contrast has not been administered. 2-D sagittal, coronal reconstructions have been obtained Low dose protocols were performed. One or more of the following dose reduction techniques were used; automated exposure control, adjustment of the mA and/or KV according to patient size, use of iterative reconstruction technique. Findings: No significant ventricular enlargement. Intra-axial or extra-axial hemorrhage density is not seen. No mass effect or midline shift Basal cisterns are not remarkable. Fourth ventricle is midline. Cranial vault intact. Significant chronic maxillary sinus disease Impression: Negative for acute hemorrhage, mass effect or midline shift As clinically warranted, repeat brain MRI follow-up would best assess for progression of demyelinating disease compared to brain MRI December 27, 2024 Dictated By: Gustavo Alfonso MD Signed By: <Electronically signed by Gustavo Alfonso MD in OV> 05/08/25 0930 Ordering Physician: Zuhair Miller NP, NP Date of Service: 05/08/25 Procedure(s): CT abdomen pelvis wo con Accession Number(s): [id number] cc: Paul (KEZIA),Zuhair MAST; Flip Ferraro MD; Gustavo Alfonso MD~ Examination: CT abdomen and pelvis without contrast. Coronal 3-D reconstructions. Sagittal 2-D reconstructions. Date and time of exam:May 08, 2025, 0827 hours Comparison March 26, 2025 INDICATIONS: Nausea vomiting tremors this morning, diagnosis cirrhosis CTDI: vol (mGy): 26.2. DLP: (mGycm): 1526. Technique: Axial images of the abdomen have been obtained, 3 mm slice thickness Intravenous contrast material has not been administered. Low dose protocols were performed. One or more of the following dose reduction techniques were used; automated exposure control, adjustment of the mA and/or KV according to patient size, use of iterative reconstruction technique. Findings: Cirrhosis, liver nodular in contour No focal liver lesions Significant splenomegaly Absent gallbladder Portosystemic collateral vessels medial to the spleen Perigastric varices No pancreatic mass Moderate renal parenchymal scar formation, no hydronephrosis Normal appendix No bowel obstruction No diverticulitis Anteverted uterus No adnexal mass No bladder mass or bladder calculi Significant osteopenia IMPRESSION: Cirrhosis Significant splenomegaly Perigastric varices Moderate bilateral renal parenchymal scar formation, no hydronephrosis Normal appendix No bowel obstruction Dictated By: Gustavo Alfonso MD Signed By: <Electronically signed by Gustavo Alfonso MD in OV> 05/08/25 0927 Medication Administration(s) Medication Administration History Furosemide (Furosemide Inj 10 Mg/Ml 4ml Vial) 40 mg IVP QDAY SHERYL Stop: 06/07/25 09:29 Lactulose (Lactulose Syrup 20 Gm/30 Ml Udc) 20 gm PO TID SHERYL; Protocol Stop: 06/07/25 13:59 Spironolactone (Spironolactone 25 Mg Tablet) 50 mg PO BID SHERYL Stop: 06/07/25 20:59 Discontinued Medications Lactulose (Lactulose Syrup 20 Gm/30 Ml Udc) 20 gm PO X1 ONE; Protocol Stop: 05/08/25 08:06 See above Consultations/Discussions re: Management Consult #1: Date/time: 05/08/25 8:14 am Physician, specialty, service, details: I spoke with residents working with hospitalist Dr. Mann. Discussed patients PMHx, HPI, ED course, exam findings, labs, and radiology results. Will come evaluate patient in the ED. Diagnosis Most likely dx, and/or detailed dx discussion: Hepatic encephalopathy Thrombocytopenia Leukocytopenia CKD Dispositon Disposition: Admit
--- NOTE | 2025-05-08 06:45 | PC.NURSE ---
Pt present to ER with c/o uncontrollable shaking, repeating words, pt denies pain at this time, pt also denies any fall or recent illness
[2025-05-08 07:02] VITALS: BMI 49.0
--- NOTE | 2025-05-08 07:34 | XR_ITS ---
Examination: CT brain head without contrast. 2-D sagittal coronal reconstructions Date and time of exam:2024, 0825 hours Comparison December 27, 2024 INDICATIONS: Altered mental status this morning, onset slurred speech generalized body weakness December 27, 2024, brain MRI December 27, 2024, demyelinating disease CTDI: vol (mGy):82.5 DLP: (mGycm):1689 Technique: Multiple CT axial sections of the brain have been obtained, 5 mm slice thickness. Contrast has not been administered. 2-D sagittal, coronal reconstructions have been obtained Low dose protocols were performed. One or more of the following dose reduction techniques were used; automated exposure control, adjustment of the mA and/or KV according to patient size, use of iterative reconstruction technique. Findings: No significant ventricular enlargement. Intra-axial or extra-axial hemorrhage density is not seen. No mass effect or midline shift Basal cisterns are not remarkable. Fourth ventricle is midline. Cranial vault intact. Significant chronic maxillary sinus disease Impression: Negative for acute hemorrhage, mass effect or midline shift As clinically warranted, repeat brain MRI follow-up would best assess for progression of demyelinating disease compared to brain MRI December 27, 2024
[2025-05-08 07:39] LABS: B-Type Natriuretic Peptide 27 pg/mL (0-100)
[2025-05-08 07:42] LABS: Alanine Aminotransferase 17 U/L (10-49); Albumin, Serum 3.6 gm/dL (3.5-5.0); Albumin/Globulin Ratio 1.1 (1.2-2.2); Alkaline Phosphatase 65 U/L (46-116); Anion Gap 11 (7-16); Aspartate Amino Transferase 35 U/L (0-34); BUN/Creatinine Ratio 17 Ratio (12-20); Bilirubin,Total 2.1 mg/dL (0.3-1.2); Blood Urea Nitrogen 38 mg/dL (9-23); Calcium 9.0 mg/dL (8.3-10.6); Calcium (Corrected) 9.3 mg/dL (8.5-10.1); Carbon Dioxide 18.2 mMol/L (20.0-31.0); Chloride 111 mMol/L (98-107); Creatinine (Component) 2.3 mg/dL (0.6-1.3); Estimated Creatinine Clearance 37.4 mL/min (>60); Globulin 3.2 gm/dL (2.3-3.5); Glucose 202 mg/dL (74-106); LDH (Lactate Dehydrogenase) 300 U/L (120-246); Magnesium 1.7 mg/dL (1.6-2.6); Osmolality,Calculated 294 (275-295); Potassium 4.9 mMol/L (3.4-5.1); Sodium 140 mMol/L (136-145); Total Protein 6.8 gm/dL (5.7-8.2); Troponin I < 0.020 ng/mL (0.0-0.045); eGFR 25 See Note
[2025-05-08 07:53] LABS: Ammonia 232 uMol/L (11-32)
[2025-05-08 07:56] LABS: Basophils # (Auto) 0.0 Thou/mm3 (0.0-0.2); Basophils % (Auto) 0 % (0-2.5); Eosinophils # (Auto) 0.1 Thou/mm3 (0.0-0.5); Eosinophils % (Auto) 3 % (0-10); Hematocrit 27.3 % (36.0-46.0); Hemoglobin 9.2 g/dL (12.0-16.0); Immature Granulocytes Auto 0.01 Thou/mm3 (0.00-0.00); Lymphocytes # (Auto) 0.5 Thou/mm3 (1.0-4.8); Lymphocytes % (Auto) 22 % (10-50); Mean Corpuscular HGB Conc 33.7 g/dl (31.0-37.0); Mean Corpuscular Hemoglobin 33.3 pg (25.0-35.0); Mean Corpuscular Volume 99 fL (80-100); Monocytes # (Auto) 0.2 Thou/mm3 (0.0-0.8); Monocytes % (Auto) 8 % (0-12); Neutrophils # (Auto) 1.6 Thou/mm3 (1.8-7.7); Neutrophils % (Auto) 66 % (37-80); Nucleated Red Blood Cell # 0.00 Thou/mm3 (0.00-0.00); Nucleated Red Blood Cell % 0 /100 WBC (0); RDW Standard Deviation 52.2 fL (36.4-46.3); Red Blood Count 2.76 Miln/mm3 (4.00-5.20); White Blood Count 2.4 Thou/mm3 (3.6-11.0)
[2025-05-08 08:02] LABS: Platelet Count 23 Thou/mm3 (140-440)
[2025-05-08 08:03] LABS: Slide Review Platelets confirmed
[2025-05-08 08:17] LABS: Base Excess, Venous -4 (-3-3); O2 Saturation, Venous 91 % (96-97); PCO2, Venous 33 mmHg (36-56); PO2, Venous 60 mmHg (15-58); pH, Venous 7.40 (7.33-7.66)
--- NOTE | 2025-05-08 08:18 | XR_ITS ---
Examination: CT abdomen and pelvis without contrast. Coronal 3-D reconstructions. Sagittal 2-D reconstructions. Date and time of exam:May 08, 2025, 0827 hours Comparison March 26, 2025 INDICATIONS: Nausea vomiting tremors this morning, diagnosis cirrhosis CTDI: vol (mGy): 26.2. DLP: (mGycm): 1526. Technique: Axial images of the abdomen have been obtained, 3 mm slice thickness Intravenous contrast material has not been administered. Low dose protocols were performed. One or more of the following dose reduction techniques were used; automated exposure control, adjustment of the mA and/or KV according to patient size, use of iterative reconstruction technique. Findings: Cirrhosis, liver nodular in contour No focal liver lesions Significant splenomegaly Absent gallbladder Portosystemic collateral vessels medial to the spleen Perigastric varices No pancreatic mass Moderate renal parenchymal scar formation, no hydronephrosis Normal appendix No bowel obstruction No diverticulitis Anteverted uterus No adnexal mass No bladder mass or bladder calculi Significant osteopenia IMPRESSION: Cirrhosis Significant splenomegaly Perigastric varices Moderate bilateral renal parenchymal scar formation, no hydronephrosis Normal appendix No bowel obstruction
[2025-05-08 08:26] LABS: INR 1.3 (0.9-1.3); Partial Thromboplastin Time 20.0 Seconds (22.0-36.0); Prothrombin Time 13.5 Seconds (9.0-12.2)
[2025-05-08 10:00] VITALS: BP 173/73; PULSE 88; RESP 16; TEMP 36.9; O2SAT 96
[2025-05-08] MEDS: LACTULOSE SYRUP 20 GM/30 ML UDC PO ×3 (10:05→21:58)
[2025-05-08 10:06] VITALS: BP 173/73; PULSE 89
[2025-05-08] MEDS: FUROSEMIDE INJ 10 MG/ML 4ML VIAL 40 MG IVP (10:06)
[2025-05-08 10:42] LABS: Collection Type, Urine Clean Catch
[2025-05-08 11:05] LABS: Bacteria,Urine 3+; Bilirubin,Urine Negative (Negative); Blood,Urine Trace (Negative); Clarity,Urine Clear (Clear/Hazy); Color,Urine Lt-Yellow (Lt Yel-Yel); Glucose, Urine Negative (Negative); Ketones,Urine Negative (Negative); Leukocyte Esterase,Urine Positive (Negative); Nitrite,Urine Negative (Negative); PH,Urine 6.0 (5.0-7.0); Protein,Urine Negative (Neg - Trace); RBC,Urine 1 /hpf (0-3); Specific Gravity,Urine 1.011 (1.001-1.035); Squamous Epithelial Cell,Urine 3 /hpf (0-5); Urobilinogen,Urine Negative mg/dL (0.0-1.0); WBC,Urine 6 /hpf (0-5)
[2025-05-08 11:12] VITALS: BMI 50.0
[2025-05-08 11:29] LABS: Amphetamine/Methamp Scrn,U Negative (Negative); Barbiturate Screen,Urine Negative (Negative); Benzodiazepines Screen,Urine Negative (Negative); Benzoylecgonine Screen, Ur Negative (Negative); Fentanyl Screen,Urine Negative (Negative); Opiate Screen,Urine Negative (Negative); THC Screen,Urine Negative (Negative)
[2025-05-08 12:00] VITALS: BP 121/73; PULSE 89; RESP 18; TEMP 36.2; O2SAT 99
--- NOTE | 2025-05-08 12:07 | ESHP_ITS ---
<Statement entered by Lexa Ferraro MD - 05/08/25 20:46> Patient was examined and case was reviewed with team including attending physician. Note reviewed, I agree with most of its contents and agree with the patient's care as documented by Dr. Reddy 54 year old female with PMHx of Hypertension, primary biliary cirrhosis, CKD stage IV, insulin-dependent type 2 diabetes, HFpEF (LVEF 55 to 60%) who presented to the ED due to nausea, vomiting, constipation and confusion. In the ED patient was found to have ammonia levels in the 300s and due to her mental status was admitted for Hepatic Encephalopathy. Lactulose ordered. Patient looked clinically dry however with +2 pitting edema on physical exam. IVFs were considered but due to patient having HFpEF will withhold from IVF's. Diuretics to be resumed and optimized for management of cirrhosis. Rifaximin and Ursodiol ordered. Will continue to monitor for improvement in ecncephalopathy. Patient also noted to have UTI and started on IV Abx namely rocephin. Case discussed with my attending Dr. Mackenzie Ferraro MD PGY-2 Documentation for date of: 05/08/25 HPI History of Present Illness History of present illness: Ms. Hopper is a 54 year old female with PMHx cirrhosis 2/2 PBC and NAFLD, thrombocytopenia 2/2 cirrhosis and hypersplenism, CKD stage 3 (follows with Dr. Neil), hypertension, insulin-dependent type 2 diabetes, HFpEF (LVEF 55 to 60%) who presented to the ED 05/08 with shaking, subjective fevers x1 day, N/V, constipation, mild confusion. Denies cough, shortness of breath, abdominal pain, urinary sx. Admitted for hepatic encephalopathy. Patient was evaluted at bedside. Patient reports that she has been feeling more shaky for the past several months. This causes her to feel unstable and has been very sedentary as she feels she is at risk of falling. Lives at home with her son, Eduardo, who is her primary senior security architect. She also reports that she fluctuates between constipation and diarrhea, currently in constipation state and has not had a BM for several days. Denies hematemesis. She notes that she had malaise, fatigue, chills, N/V, and subjective fever x 1 day. She did not take any over the counter medications for fever or nausea. She did not receive any antiemetics in the ED, but she notes that her nausea resolved without intervention. Upon examination, patient reported that she feels much better but continues to have diffuse abdominal pressure and shaking of the extremities b/l when she tries to change seated position. She denies current N/V, urinary sx, headache. Of note, patient was previously hospitalized 03/26-03/30 for E coli bacteremia, tx with Cefuroxime. ED course: Afebrile, HR 89, RR 16, BP 173/73, spO2 96%. Labs significant for leukopenia, normocytic normochromic anemia, thrombocytopenia, elevated coags (PT 13.5), Cl elevated 111, bicarb 18.2, BUN 38, Cr 2.3 PMHx: Cirrhosis 2/2 PBC, NAFLD, CKD stage 3, severe thrombocytopenia 2/2 cirrhosis and moderate hypersplenism, recurrent necrotizing fasciitis, HTN, T2DM, gout, Grade 1 esophageal varices, gastric varices Allergies: Tramadol (hives), ciprofloxacin (hives) Home meds: Gabapentin 400 mg BID Propranolol 10 mg BID Ursodiol 300 mg TID Ozempic 0.5 mg once per week Basaglar 35U BID Atorvastatin 10 mg daily Aspart 10U with meals Lasix 20 mg daily Medroxyprogesterone 10 mg BID Vit D3 1000U daily Ferrous sulfate 325 mg BID Arlene-Kathrin daily Vit C 1000 mg daily Zinc 50 mg daily Colchicine 0.6 mg BID SgHx: I&D of necrotizing fasciitis, cholecystectomy, appendectomy SHx: Quit smoking 2015 (previously smoked 2-3 cigarettes on social occasions), quit drinking May 2024 (previously only on social occasions), denies recreational drug use FHx: Mom - CHF, T2DM, Alzheimer's disease Dad - CHF, T2DM Sister - HTN, T2DM Review of Systems Review of Systems Narrative Review of Systems: 14 point ROS negative other than HPI Exam Vital Signs Temp Pulse Resp BP Pulse Ox O2 Del Method 98.5 F 89 16 173/73 H 96 Room Air 05/08/25 10:00 05/08/25 10:06 05/08/25 10:00 05/08/25 10:06 05/08/25 10:05/08/25 10:00 Narrative Exam General: No acute distress, well nourished, obese habitus Eye: PERRL, EOMI, normal conjunctiva, no scleral icterus HENT: Normocephalic, atraumatic, normal hearing, dry oral mucosa Neck: Supple, non-tender, no JVD, no lymphadenopathy Lungs: Clear to auscultation bilaterally, non-labored respirations, symmetric chest rise, no use of accessory muscles Heart: Normal S1 and S2, no S3 or S4 appreciated. Normal rate and regular rhythm, no murmurs, rubs gallops, or edema. Peripheral pulses intact bilaterally, capillary refill brisk distally, 2+ pitting edema. no sacral edema Abdomen: Soft, non-tender, +distension, normal bowel sounds. No guarding or rebound tenderness. Musculoskeletal: Normal range of motion and strength, no tenderness or swelling Skin: Skin is warm, dry, no rashes or lesions. Neurologic: Alert, awake and oriented x3. CN II-XII grossly intact. +asterixis. No focal neuro deficits. No signs of meningeal irritation noted. Psychiatric: Cooperative, appropriate mood and affect Results: Labs 05/09/25 05:30 05/09/25 05:30 Labs: Short CBC 05/08/25 Range/Units 07:04 WBC 2.4 L (3.6-11.0) Thou/mm3 Hgb 9.2 L (12.0-16.0) g/dL Hct 27.3 L (36.0-46.0) % Plt Count 23 L* (140-440) Thou/mm3 BMP 05/08/25 07:04 Sodium 140 Potassium 4.9 Chloride 111 H Carbon Dioxide 18.2 L BUN 38 H Creatinine 2.3 H Glucose 202 H Calcium 9.0 Cardiac Enzymes 05/08/25 Range/Units 07:04 Troponin I < 0.020 (0.0-0.045) ng/mL Liver Function 05/08/25 Range/Units 07:04 Total Bilirubin 2.1 H (0.3-1.2) mg/dL AST 35 H (0-34) U/L ALT 17 (10-49) U/L Alkaline Phosphatase 65 (46-116) U/L Albumin 3.6 (3.5-5.0) gm/dL Urine 05/08/25 Range/Units 10:24 Urine Color Lt-Yellow (Lt Yel-Yel) Urine Clarity Clear (Clear/Hazy) Urine pH 6.0 (5.0-7.0) Ur Specific [place] 1.011 (1.001-1.035) Urine Protein Negative (Neg - Trace) Urine Glucose (UA) Negative (Negative) ABG Interpretation ABG results: 05/08/25 08:09 VBG pH 7.40 VBG pCO2 33 L VBG pO2 60 H VBG Base Excess -4 L Quality Measures Quality Measures none Medications Home Medications and Allergies Home Medications ?Medication ?Instructions ?Recorded ?Confirmed ?Type insulin glargine 100 unit/mL (3 35 unit subcut BID 11/1705/08/25 History mL) subcutaneous pen (Basaglar KwikPen U-100 Insulin) ursodiol 300 mg capsule 300 mg PO TID 09/30/1805/08 History ascorbic acid (vitamin C) 1,000 mg 1,000 mg PO DAILY 0 10/27/23 05/08/25 History tablet (Vitamin C) atorvastatin 10 mg tablet 10 mg PO HS 10/27/23 5 History cholecalciferol (vitamin D3) 25 25 mcg PO QDAY 4 05/08/25 History mcg (1,000 unit) tablet (Vitamin D3) gabapentin 400 mg capsule 400 mg PO BID 10/27/2305/08 History insulin aspart U-100 100 unit/mL 10 unit subcut TIDPC 10/27/23 05/08/25 History (3 mL) subcutaneous pen propranolol 10 mg tablet 10 mg PO BID 10/27/23 History medroxyprogesterone 10 mg tablet 10 mg PO 3XD 01/05/25 05/08/25 History semaglutide 0.25 mg or 0.5 mg (2 0.5 mg subcut .abdullahi orozco 01/05/25 05/08/25 History mg/3 mL) subcutaneous pen injector (Ozempic) zinc sulfate 50 mg zinc (220 mg) 50 mg PO QDAY 5 05/08/25 History capsule colchicine 0.6 mg tablet 0.6 mg PO QDAY 03/27/2504/29 History hydrocodone 10 mg-acetaminophen 1 tab PO Q12H PRN pain 05/08/25 05/08/25 History 325 mg tablet medroxyprogesterone 5 mg tablet 5 mg PO DAILY 05/08/25 05/08/25 History Allergies Allergy/AdvReac Type Severity Reaction Status Date / Time tramadol Allergy Severe Hives Verified 05/08/25 06:02 ciprofloxacin Allergy Mild Rash Verified 05/08/25 06:02 Iodinated Contrast Media Allergy Verified 05/08/25 16:14 Visit Medications Furosemide (Furosemide Inj 10 Mg/Ml 4ml Vial) 40 mg IVP QDAY SHERYL Stop: 06/07/25 09:29 Last Admin: 05/08/25 10:06 Dose: 40 mg Lactulose (Lactulose Syrup 20 Gm/30 Ml Udc) 20 gm PO TID SHERYL; Protocol Stop: 06/07/25 13:59 Spironolactone (Spironolactone 25 Mg Tablet) 50 mg PO BID SHERYL Stop: 06/07/25 20:59 Discontinued Medications Lactulose (Lactulose Syrup 20 Gm/30 Ml Udc) 20 gm PO X1 ONE; Protocol Stop: 05/08/25 08:06 Last Admin: 05/08/25 10:05 Dose: 20 gm Assessment & Plan Plan Ms. Hopper is a 54 year old female with PMHx cirrhosis 2/2 PBC and NAFLD, thrombocytopenia 2/2 cirrhosis and hypersplenism, CKD stage 3 (follows with Dr. Neil), hypertension, insulin-dependent type 2 diabetes, HFpEF (LVEF 55 to 60%) who presented to the ED 05/08 with shaking, subjective fevers x1 day, N/V, constipation, mild confusion. Denies cough, shortness of breath, abdominal pain, urinary sx. Admitted for hepatic encephalopathy. 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 Has abdominal pressure, distension Ammonia 232 Plan: - Lactulose 20 g PO TID - Rifaximin 550 mg BID - Continue home ursodiol 300 mg PO TID - CTM for BM #UTI #Hematuria Hx of recurrent UTIs Previous hospitalization 2/2 E.coli bacteremia, complicated UTI Currently denies urinary sx UA + leukocyte esterase, 2+ blood, 18 RBC, 47 WBC, 6 squamous epithelial cells, 3+ bacteria Plan: - Ceftriaxone 1 g daily x5 days (05/08 - 05/13) - Pending urine cx #CKD stage 3 Initial BUN 38, Cr 2.3 Close to baseline function Follows with Dr. Neil Plan: - CTM with CMP - Avoid neprhotoxic agents - Renally dose medications #Leukopenia - chronic #Thrombocytopenia - chronic 2/2 cirrhosis and moderate hypersplenism No s/s active bleeding Plan: - CTM with daily CBC - Transfuse plt if plt <10 + no procedure + no active bleed, if plt < 20 + low risk procedure, if plt <50 + high risk procedure #HFpEF (LVEF 55-60%) Currently euvolemic Some third spacing, as pt has some b/l LE pitting edema. Dry mucous membranes. No sacral edema appreciated on exam. BNP 27 WNL Plan: - Hold home lasix - CTM fluid status daily #Hypertension Home med: Propranolol 10 mg PO BID Plan: - Continue home Propranolol 10 mg PO BID - CTM vitals #Insulin-dependent type 2 diabetes mellitus Home meds: Basaglar 35U BID, Aspart 10U with meals Plan: - ISS #Gout No acute flare Plan: -Hold home colchicine Dispo: Mgmt of hepatic encephalopathy Diet: Renal Bowel Reg: Lactulose VTE ppx: heparin 5000U subQ q8h GI ppx: none (will CTM for s/s acid reflux) Code status: Full Plan discussed with Dr. Oswald and Dr. Mackenzie Reddy MD PGY1 Attending Provider Attestation/Addendum I, Maria Fernanda Mann DO, attest that I was physically present for the blank portions of the service and evaluated the patient with the resident and I reviewed and discussed the case with the resident and agree with the resident's findings and plans of care as documented above Patient is a 54-year-old female with past medical history of cirrhosis secondary to PBC, CKD stage III, hypertension, IDDM type II, HFpEF who was brought into the ED due to confusion and tremors. Patient denies any chest pain, shortness of breath, fevers or chills otherwise, patient states that she had notedly been more tremulous for the past few months. However, her son noted that the patient was very confused and answering questions inappropriately in a nonsensical manner. She also reports feeling constipated for several days. Upon evaluation in the ED, patient was noted to have an elevated ammonia level of 232. Patient does have asterixis on exam. She has elevated bilirubin likely secondary to PBC. She is afebrile otherwise. Patient appears to be back at baseline at this time. Will start patient on lactulose and observe on med/surge at this time. Patient states that she had seen a GI in the past and was diagnosed with PBC. However, patient does not take any medications at home. She had previously received a lactulose here in the hospital before, but never received a prescription. Patient will likely need to be discharged on lactulose titratable to 2-3 bowel movements daily. Patient takes Lasix at home due to bilateral lower extremity edema. Patient otherwise denies any dysuria. She is currently on Rocephin due to concern for decompensated cirrhosis. Will follow-up with urine cultures in the meantime.
[2025-05-08 14:45] LABS: Path Review Blood Smear Sent to Pathologist
[2025-05-08] MEDS: cefTRIAXone/D5w 1gm IV premix 1 GM/50 ML BAG IV (15:52)
[2025-05-08] MEDS: GABAPENTIN 100 MG, GABAPENTIN 300 MG 400 MG PO ×2 (15:53→20:43)
[2025-05-08] MEDS: CHOLECALCIFEROL (Vitamin D3) 1,000 IU TABLET 1000 IU PO (15:53)
[2025-05-08] MEDS: ASCORBIC ACID 250 MG TABLET 1000 MG PO (15:53)
[2025-05-08 16:00] VITALS: BP 153/61; PULSE 81; RESP 18; TEMP 36.3; O2SAT 97
[2025-05-08] MEDS: INSULIN LISPRO (AdmeLOG) 1 UNIT/0.01 ML UNIT SC (18:18)
[2025-05-08] MEDS: ZINC SULFATE 220 MG CAPSULE PO (18:18)
[2025-05-08 20:00] VITALS: BP 130/53; PULSE 87; PULSE 88; RESP 17; TEMP 36.1; O2SAT 99
[2025-05-08] MEDS: INSULIN LISPRO (AdmeLOG) 1 UNIT/0.01 ML UNIT 5 UNIT SC (20:42)
[2025-05-08 20:43] VITALS: BP 130/53; PULSE 87
[2025-05-08] MEDS: ATORVASTATIN CALCIUM 10 MG TABLET PO (20:43)
[2025-05-08] MEDS: PROPRANOLOL 10 MG TABLET PO (20:43)
[2025-05-08] MEDS: HYDROmorphone INJ 2 MG/ML VIAL 1 MG IVP (21:57)
[2025-05-09] VITALS (8 sets, daily range): BP systolic 135–165; BP diastolic 46–84; PULSE 71–93; RESP 16–18; TEMP 36.1–36.2; O2SAT 98–100; BMI 50.3
[2025-05-09] MEDS: LACTULOSE SYRUP 20 GM/30 ML UDC PO (05:25)
[2025-05-09 06:30] LABS: Basophils # (Auto) 0.0 Thou/mm3 (0.0-0.2); Basophils % (Auto) 0 % (0-2.5); Eosinophils # (Auto) 0.0 Thou/mm3 (0.0-0.5); Eosinophils % (Auto) 1 % (0-10); Hematocrit 27.3 % (36.0-46.0); Hemoglobin 9.4 g/dL (12.0-16.0); Immature Granulocytes Auto 0.02 Thou/mm3 (0.00-0.00); Lymphocytes # (Auto) 0.5 Thou/mm3 (1.0-4.8); Lymphocytes % (Auto) 16 % (10-50); Mean Corpuscular HGB Conc 34.4 g/dl (31.0-37.0); Mean Corpuscular Hemoglobin 33.6 pg (25.0-35.0); Mean Corpuscular Volume 98 fL (80-100); Monocytes # (Auto) 0.3 Thou/mm3 (0.0-0.8); Monocytes % (Auto) 9 % (0-12); Neutrophils # (Auto) 2.2 Thou/mm3 (1.8-7.7); Neutrophils % (Auto) 72 % (37-80); Nucleated Red Blood Cell # 0.00 Thou/mm3 (0.00-0.00); Nucleated Red Blood Cell % 0 /100 WBC (0); RDW Standard Deviation 52.6 fL (36.4-46.3); Red Blood Count 2.80 Miln/mm3 (4.00-5.20); White Blood Count 3.0 Thou/mm3 (3.6-11.0)
[2025-05-09 07:07] LABS: Platelet Count 25 Thou/mm3 (140-440)
[2025-05-09 07:14] LABS: Alanine Aminotransferase 17 U/L (10-49); Albumin, Serum 3.4 gm/dL (3.5-5.0); Albumin/Globulin Ratio 1.1 (1.2-2.2); Alkaline Phosphatase 57 U/L (46-116); Anion Gap 12 (7-16); Aspartate Amino Transferase 36 U/L (0-34); BUN/Creatinine Ratio 14 Ratio (12-20); Bilirubin,Total 2.8 mg/dL (0.3-1.2); Blood Urea Nitrogen 32 mg/dL (9-23); Calcium 9.3 mg/dL (8.3-10.6); Calcium (Corrected) 9.8 mg/dL (8.5-10.1); Carbon Dioxide 20.1 mMol/L (20.0-31.0); Chloride 112 mMol/L (98-107); Creatinine (Component) 2.3 mg/dL (0.6-1.3); Estimated Creatinine Clearance 35.2 mL/min (>60); Globulin 3.1 gm/dL (2.3-3.5); Glucose 237 mg/dL (74-106); Magnesium 1.7 mg/dL (1.6-2.6); Osmolality,Calculated 301 (275-295); Phosphorous 4.9 mg/dL (2.4-5.1); Potassium 4.9 mMol/L (3.4-5.1); Sodium 144 mMol/L (136-145); Total Protein 6.5 gm/dL (5.7-8.2); eGFR 25 See Note
[2025-05-09] MEDS: INSULIN LISPRO (AdmeLOG) 1 UNIT/0.01 ML UNIT SC ×3 (07:35→17:18)
[2025-05-09 07:41] LABS: Glucose Estimated Average 140 mg/dL (80-131); Hemoglobin A1C 6.5 % Hgb (4.8-6.0)
--- NOTE | 2025-05-09 08:01 | PD.RESPRO ---
Documentation for date of: 05/09/25 Subjective Subjective Interval history: Pt evaluated at bedside today. Pt is alert and oriented x4. No acute overnight events. Pt reports that she has been having constant back pain since last night and is requesting pain control medications. She reports that her constipation and confusion are much improved. Pt reports that she still has some N/V with one episode of vomiting last night, but reports improvement in comparison to the time of admission. She states that she hasn't noted any episodes of fever since her time of admission. Pt was notified of the current plan and does not have any further questions or concerns at this time. Exam Vital Signs Temp Pulse Resp BP Pulse Ox O2 Del Method 97.0 F 82 17 139/57 H 98 Room Air 05/09/25 04:00 05/09/25 07:50 05/09/25 04:00 05/09/25 04:00 05/09/25 04:00 05/09/25 04:00 Narrative Exam General: No acute distress, well nourished, obese habitus Eye: PERRL, EOMI, normal conjunctiva, no scleral icterus HENT: Normocephalic, atraumatic, normal hearing, dry oral mucosa Neck: Supple, non-tender, no JVD, no lymphadenopathy Lungs: Clear to auscultation bilaterally, non-labored respirations, symmetric chest rise, no use of accessory muscles Heart: Normal S1 and S2, no S3 or S4 appreciated. Normal rate and regular rhythm, no murmurs, rubs gallops, or edema. Peripheral pulses intact bilaterally, capillary refill brisk distally, 2+ pitting edema. Abdomen: Soft, non-tender, +distension, normal bowel sounds. No guarding or rebound tenderness. Musculoskeletal: Normal range of motion and strength, no tenderness or swelling Skin: Skin is warm, dry, no rashes or lesions. Neurologic: Alert, awake and oriented x3. CN II-XII grossly intact. +asterixis. No focal neuro deficits. No signs of meningeal irritation noted. Psychiatric: Cooperative, appropriate mood and affect Objective Objective Narrative Objective Narrative: Pt is alert and oriented x4. Pt has clear breath sounds bilaterally and cardiac exam yields regular rate and rhythm w/o murmur. Abdomen is nontender to palpation but remains distended. Labs 05/09/25 05:30 05/09/25 05:30 Labs: Laboratory Results - last 24 hr 05/08/25 05/08/25 05/08/25 07:04 08:09 10:24 WBC 2.4 L RBC 2.76 L Hgb 9.2 L Hct 27.3 L MCV 99 MCH 33.3 MCHC 33.7 RDW Std Deviation 52.2 H Plt Count 23 L* Neut % (Auto) 66 Lymph % (Auto) 22 [place] % (Auto) 8 Eos % (Auto) 3 Baso % (Auto) 0 Neut # (Auto) 1.6 L Lymph # (Auto) 0.5 L [place] # (Auto) 0.2 Eos # (Auto) 0.1 Baso # (Auto) 0.0 Immature Gran # (Auto) 0.01 H Absolute Nucleated RBC 0.00 Immature Gran % 0 Nucleated RBC % 0 Smear Path Review Sent to Pathologist PT 13.5 H INR 1.3 APTT 20.0 L VBG pH 7.40 VBG pCO2 33 L VBG pO2 60 H VBG O2 Sat (Sergio) 91 L VBG Base Excess -4 L Sodium Potassium Chloride Carbon Dioxide Anion Gap BUN Creatinine Estim Creat Clear Calc eGFR BUN/Creatinine Ratio Glucose Estimated Ave Glu mg/dL Hemoglobin A1c Calculated Osmolality Calcium Corrected Calcium Phosphorus Magnesium Total Bilirubin AST ALT Alkaline Phosphatase Total Protein Albumin Globulin Albumin/Globulin Ratio Ur Collection Type Clean Catch Urine Color Lt-Yellow Urine Clarity Clear Urine pH 6.0 Ur Specific [place] 1.011 Urine Protein Negative Urine Glucose (UA) Negative Urine Ketones Negative Urine Blood Trace Urine Nitrite Negative Urine Bilirubin Negative Urine Urobilinogen (Auto) Negative Ur Leukocyte Esterase Positive Urine RBC 1 Urine WBC 6 H Ur Squamous Epith Cells 3 Urine Bacteria 3+ A Urine Opiates Screen Negative Urine Fentanyl Screen Negative Ur Barbiturates Screen Negative U Amphetamin/Meth Scrn Negative U Benzodiazepines Scrn Negative U Cocaine Metab Screen Negative U Marijuana (THC) Screen Negative Misc Test Result Platelets confirmed 05/09/25 05:30 WBC 3.0 L RBC 2.80 L Hgb 9.4 L Hct 27.3 L MCV 98 MCH 33.6 MCHC 34.4 RDW Std Deviation 52.6 H Plt Count 25 L* Neut % (Auto) 72 Lymph % (Auto) 16 [place] % (Auto) 9 Eos % (Auto) 1 Baso % (Auto) 0 Neut # (Auto) 2.2 Lymph # (Auto) 0.5 L [place] # (Auto) 0.3 Eos # (Auto) 0.0 Baso # (Auto) 0.0 Immature Gran # (Auto) 0.02 H Absolute Nucleated RBC 0.00 Immature Gran % 1 H Nucleated RBC % 0 Smear Path Review PT INR APTT VBG pH VBG pCO2 VBG pO2 VBG O2 Sat (Sergio) VBG Base Excess Sodium 144 Potassium 4.9 Chloride 112 H Carbon Dioxide 20.1 Anion Gap 12 BUN 32 H Creatinine 2.3 H Estim Creat Clear Calc 35.2 L eGFR 25 L BUN/Creatinine Ratio [address] Glu mg/dL 140 H Hemoglobin A1c 6.5 H Calculated Osmolality 301 H Calcium 9.3 Corrected Calcium 9.8 Phosphorus 4.9 Magnesium 1.7 Total Bilirubin 2.8 H D AST 36 H ALT 17 Alkaline Phosphatase 57 Total Protein 6.5 Albumin 3.4 L Globulin 3.1 Albumin/Globulin Ratio 1.1 L Ur Collection Type Urine Color Urine Clarity Urine pH Ur Specific [place] Urine Protein Urine Glucose (UA) Urine Ketones Urine Blood Urine Nitrite Urine Bilirubin Urine Urobilinogen (Auto) Ur Leukocyte Esterase Urine RBC Urine WBC Ur Squamous Epith Cells Urine Bacteria Urine Opiates Screen Urine Fentanyl Screen Ur Barbiturates Screen U Amphetamin/Meth Scrn U Benzodiazepines Scrn U Cocaine Metab Screen U Marijuana (THC) Screen Misc Test Result ABG Interpretation ABG results: 05/08/25 08:09 VBG pH 7.40 VBG pCO2 33 L VBG pO2 60 H VBG Base Excess -4 L Quality Measures Quality Measures none Assessment & Plan Assessment Current Active Medications: Generic Name Dose Route Start Last Admin Trade Name Freq PRN Reason Stop Dose Admin Ascorbic Acid 1,000 mg 05/08/25 13:30 05/08/25 15:53 Ascorbic Acid 250 Mg Tablet PO 06/07/25 13:29 1,000 mg DAILY SHERYL Administration Atorvastatin Calcium 10 mg 05/08/25 21:00 05/08/25 20:43 Atorvastatin Calcium 10 Mg Tablet PO 06/07/25 20:59 10 mg HS SHERYL Administration Dextrose 25 ml 05/08/25 15:31 Dextrose 50%-Water Inj 50 Ml Syringe IV 06/07/25 15:30 Q15MIN PRN BG 50-70 responsive npo pt Dextrose 50 ml 05/08/25 15:31 Dextrose 50%-Water Inj 50 Ml Syringe IV 06/07/25 15:30 Q15MIN PRN BG <50 OR BG <70 & pt unresponsive Furosemide 40 mg 05/08/25 09:30 05/08/25 10:06 Furosemide Inj 10 Mg/Ml 4ml Vial IVP 06/07/25 09:29 40 mg QDAY SHERYL Administration Gabapentin 100 mg/ Gabapentin 400 mg 05/08/25 13:45 05/08/25 20:43 300 mg PO 06/07/25 13:44 400 mg BID SHERYL Administration Glucagon 1 mg 05/08/25 15:31 Glucagon Inj 1 Mg Vial IM Q15MIN PRN BG <70, and no IV access Heparin Sodium (Porcine) 5,000 unit 05/08/25 14:00 05/09/25 05:20 Heparin Sod Inj 5000 Unit/Ml Vial SC 05/22/25 13:59 Not Given Q8HR SHERYL Ceftriaxone Sodium/Dextrose 1 gm in 50 mls @ 100 mls/hr 05/08/25 13:35 05/08/25 15:52 Rocephin/D5w 1gm Iv Premix IV 05/15/25 13:34 100 mls/hr QDAY SHERYL Administration Ibuprofen 600 mg 05/08/25 13:34 Ibuprofen Tab 600 Mg Tablet PO 06/07/25 13:33 Q6H PRN PAIN SCALE 1-3 (mild Protocol Ibuprofen 200 mg 05/08/25 13:41 Ibuprofen Tab 200 Mg Tablet PO 06/07/25 13:25 Q6HR PRN Fever > 100.4 Insulin Human Lispro 0 unit 05/08/25 17:00 05/09/25 07:35 Insulin Lispro (Admelog) 1 Unit/0.01 Ml Unit SC 06/07/25 16:59 2 unit AC SHERYL Administration Protocol Lactulose 20 gm 05/08/25 14:00 05/09/25 05:25 Lactulose Syrup 20 Gm/30 Ml Udc PO 06/07/25 13:59 20 gm TID SHERYL Administration Protocol Ondansetron HCl 4 mg 05/08/25 13:26 Ondansetron Inj 2 Mg/Ml Inj 2 Ml IVP 06/07/25 13:25 Q6HR PRN NAUSEA OR VOMITING Protocol Propranolol HCl 10 mg 05/08/25 21:00 05/08/25 20:43 Propranolol 10 Mg Tablet PO 06/07/25 20:59 10 mg BID SHERYL Administration Rifaximin 550 mg 05/08/25 13:30 05/08/25 20:43 Rifaximin 550 Mg Tablet PO 05/15/25 13:29 550 mg BID SHERYL Administration Ursodiol 300 mg 05/08/25 22:00 05/09/25 05:25 Ursodiol 300 Mg Capsule PO 06/07/25 21:59 300 mg TID SHERYL Administration Vitamin D 1,000 iu 05/08/25 13:30 05/08/25 15:53 Cholecalciferol (Vitamin D3) 1,000 Iu Tablet PO 06/07/25 13:29 1,000 iu QDAY SHERYL Administration Zinc Sulfate 220 mg 05/08/25 18:15 05/08/25 18:18 Zinc Sulfate 220 Mg Capsule PO 06/07/25 18:14 220 mg QDAY SHERYL Administration Plan #Hepatic encephalopathy #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 Abdominal/Chest CT on 05/08 showed massive splenomegaly, evidence of cirrhosis, and evidence of perigastric varices. Pt reports abdominal pressure sensation and abdomen is distended on exam. Ammonia level taken on 05/08 was 272 - Lactulose 20 g PO TID - Rifaximin 550 mg BID - Continue home ursodiol 300 mg PO TID #UTI #Hematuria Pt has history of previous hospitalization for recurrent UTI's. Pt currently denies having any UTI symptoms or changes in urination. UA done on 05/08 showed (+) leukocyte esterase, 2+ blood, 18 RBC, 47 WBC, 6 squamous epithelial cells, 3+ bacteria Plan: - Ceftriaxone 1 g daily x5 days (05/08 - 05/13) - Pending urine cx #CKD stage 3 CMP on 05/09 showed BUN 32, Cr 2.3 which is close to baseline function Follows with Semaph[employer] Operator Dr. Neil Plan: - CTM with daily CMP - Avoid nephrotoxic agents - Renally dose medications #Leukopenia - chronic #Thrombocytopenia - chronic 2/2 cirrhosis and moderate hypersplenism No s/s active bleeding Plan: - CTM with daily CBC - Transfuse plt if plt <10 + no procedure + no active bleed, if plt < 20 + low risk procedure, if plt <50 + high risk procedure #Hypertension Most recent BP 151/84. Home med: Propranolol 10 mg PO BID Plan: - Continue home Propranolol 10 mg PO BID - Start amlodipine 10mg - CTM vitals #Insulin-dependent type 2 diabetes mellitus Most recent bedside glucose 215. Range of bedside blood glucose 161-271. Home meds: Basaglar 35U BID, Aspart 10U with meals Plan: - ISS - Lantus 5 units Plan was reviewed by Senior Resident Dr. Darek Ferraro and attending physician Dr. Mann
[2025-05-09] MEDS: cefTRIAXone/D5w 1gm IV premix 1 GM/50 ML BAG IV (08:10)
[2025-05-09] MEDS: ZINC SULFATE 220 MG CAPSULE PO (08:11)
[2025-05-09] MEDS: ASCORBIC ACID 250 MG TABLET 1000 MG PO (08:11)
[2025-05-09] MEDS: GABAPENTIN 100 MG, GABAPENTIN 300 MG 400 MG PO (08:11)
[2025-05-09] MEDS: PROPRANOLOL 10 MG TABLET PO (08:12)
[2025-05-09] MEDS: CHOLECALCIFEROL (Vitamin D3) 1,000 IU TABLET 1000 IU PO (08:12)
[2025-05-09 08:26] LABS: Slide Review Platelets confirmed
[2025-05-09] MEDS: LIDOCAINE 5% 1 PATCH TOP (10:30)
[2025-05-09] MEDS: INSULIN GLARGINE (Lantus) 5 UNIT/0.05 ML (PER 5 UNITS) 10 UNIT SC (10:37)
--- NOTE | 2025-05-09 11:25 | PC.CC ---
Preemptive PA submitted for Xifaxan - approved through 05/09/26.
--- NOTE | 2025-05-09 13:40 | PC.SS ---
Patient Sharonda Hopper is a 54 Year old female admitted for Nausea, vomiting. SS met with patient at bedside to discuss discharge plan and verify demographic information. Patient reported she lives at home with family. Patient reports her sister, Cristin Hopper is her surrogate decision maker, [phone]. Patient reports that prior to admission she was able to ambulate. Patient does have a 3 in 1 commode. Patient is able to complete ADL's with minimal assistance. Pharmacy of choice is [facility]. PCP is Flip Ferraro. At time of discharge patient will return back home. Family will provide transportation. Next of kin; Sister, Cristin Hopper Discharge plan: Home
--- NOTE | 2025-05-09 13:54 | ESDS_ITS ---
<Statement entered by Maria Fernanda Mann DO - 05/10/25 08:26> I, Maria Fernanda Mann DO, attest that I was physically present for the blank portions of the service and evaluated the patient with the resident and I reviewed and discussed the case with the resident and agree with the resident's findings and plans of care as documented above <Statement entered by Lexa Ferraro MD - 05/09/25 20:24> Patient was examined and case was reviewed with team including attending physician. Note reviewed, I agree with most of its contents and agree with the patient's care. Lexa Ferraro MD PGY-2 Planned Discharge Date 05/09/25 DS: Providers Provider Date of admission: 05/08/25 09:15 Primary care physician: Flip Ferraro MD Admitting Provider: Maria Fernanda Mann DO Attending Provider on Admission: Maria Fernanda Mann DO Attending Provider on DC: Maria Fernanda Mann DO Discharging Provider: Haydee Robles DS: Diagnosis Problem List Completed Was Problem List Reviewed/Reconciled?: Yes Hospital Course Hospital Course Hospital course: 54 year old female with PMHx of Hypertension, primary biliary cirrhosis, CKD stage IV, insulin-dependent type 2 diabetes, HFpEF (LVEF 55 to 60%) who presented to the ED due to nausea, vomiting, constipation and confusion. In the ED patient was found to have ammonia levels in the 300s and due to her mental status was admitted for Hepatic Encephalopathy. Lactulose 20 g PO TID and Rifaximin 550 mg BID were given to decrease pt's ammonia levels. Pt was also continued home meds of ursodiol 300 mg PO TID during the course of her hospitalization. Pt also showed clinical signs of UTI and was given IV Ceftrixone 1 gm in 50ml at a rate of 100 ml/hr. 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 Should your symptoms recur or worsen patient is instructed to return to the ED. Status at Discharge Cognitive/behavioral status at discharge: Pt is alert and oriented x4 at time of discharge. She is able to ambulate independently and without support. Time Spent with Patient Time attestation: Total time spent providing and/or coordinating discharge services: Time spent: Greater than 30 minutes Exam Vital Signs Temp Pulse Resp BP Pulse Ox O2 Del Method 97 F 983 H 16 135/46 H 100 Room Air 05/09/25 11:38 05/09/25 11:38 05/09/25 11:38 05/09/25 11:38 05/09/25 11:38 05/09/25 11:38 Discharge Plan Plan Patient Disposition: HOME (Self Care) Care Plan Goals: Please follow up with primary care physician within 1 week of discharge You have been prescribed lactulose please take this medication until you reach goal of 3x Bowel movements per day to prevent accumulation of ammonia in your system Please continue to follow up with GI Please take your medications as prescribed. Should your symptoms recur or worsen patient is instructed to return to the ED. Prescriptions/Referrals Prescriptions/Med Rec: New lactulose 10 gram/15 mL solution 20 g PO TID Qty: 3000 0RF cephalexin 500 mg capsule 500 mg PO BID 6 Days Qty: 12 0RF Continued ursodiol 300 mg Capsule 300 mg PO TID insulin glargine [Basaglar KwikPen U-100 Insulin] 100 unit/mL (3 mL) Insulin Pen 35 unit SUBCUT BID gabapentin 400 mg capsule 400 mg PO BID Patient Comments: TAKE ONE CAPSULE BY MOUTH TWICE DAILY FOR NERVE PAIN propranolol 10 mg tablet 10 mg PO BID Patient Comments: TAKE ONE TABLET BY MOUTH TWICE DAILY FOR BLOOD PRESSURE atorvastatin 10 mg tablet 10 mg PO HS Patient Comments: TAKE ONE TABLET BY MOUTH EVERY DAY FOR CHOLESTEROL cholecalciferol (vitamin D3) [Vitamin D3] 25 mcg (1,000 unit) Tablet 25 mcg PO QDAY insulin aspart U-100 100 unit/mL (3 mL) Insulin Pen 10 unit SUBCUT TIDPC Rx Instructions: TID after meals ascorbic acid (vitamin C) [Vitamin C] 1,000 mg Tablet 1,000 mg PO DAILY Ozempic 0.25 mg or 0.5 mg (2 mg/3 mL) pen injector 0.5 mg SUBCUT .abdullahi Patient Comments: INJECT 0.5 MG SUBCUTANEOUSLY EVERY WEEK FOR DIABETES medroxyprogesterone 10 mg tablet 10 mg PO 3XD Rx Instructions: 3 tablets daily zinc sulfate 50 mg zinc (220 mg) Capsule 50 mg PO QDAY furosemide 20 mg tablet 20 mg PO DAILY Qty: 7 0RF Patient Comments: TAKE ONE TABLET BY MOUTH EVERY MORNING A DIURETIC medroxyprogesterone 5 mg tablet 5 mg PO DAILY Patient Comments: TAKE ONE TABLET BY MOUTH EVERY DAY hydrocodone-acetaminophen 10-325 mg tablet 1 tab PO Q12H PRN (Reason: pain) Patient Comments: TAKE ONE TABLET BY MOUTH EVERY TWELVE HOURS NEEDED FOR PAIN colchicine 0.6 mg tablet 0.6 mg PO QDAY Referrals: Flip Ferraro MD [Primary Care Provider] - Patient/Caregiver Discharge Instructions Education Materials: CKD Dc Print Language: Estonian Stand Alone Forms: Lucie Award Info., Patient Portal Info Letter Discharge Order Discharge Orders: Discharge (Routine); Ordered 05/09/25 Ordered By: Maria Fernanda Mann Quality Discharge Quality Measures none
== END 2025-05-09 18:10 | disposition home or self-care (01) ==
LOC: SERX 07:51 → SERHOLD 09:51 → S3NX 05-09 06:55 → SERHOLD 05-09 14:11 → S3NX 05-09 14:11
PROVIDERS: Student in an Organized Health Care Education/Training Program; Admitting Provider Internal Medicine; Emergency Provider Family Medicine; PCP Family Medicine; Visit Provider Internal Medicine
DX: K74.3 Primary biliary cirrhosis (principal); K76.82 Hepatic encephalopathy; K76.0 Fatty (change of) liver, not elsewhere classified; N39.0 Urinary tract infection, site not specified; E11.22 Type 2 diabetes mellitus with diabetic chronic kidney disease; I13.0 Hypertensive heart and chronic kidney disease with heart failure and stage 1 through stage 4 chronic kidney disease, or unspecified chronic kidney disease; N18.4 Chronic kidney disease, stage 4 (severe); I50.32 Chronic diastolic (congestive) heart failure; D69.6 Thrombocytopenia, unspecified; D72.819 Decreased white blood cell count, unspecified; I86.4 Gastric varices; K59.00 Constipation, unspecified; G37.9 Demyelinating disease of central nervous system, unspecified
CPT/HCPCS: 36415; 70450; 71046; 74176; 80053; 80307; 81001; 82140; 82803; 83036; 83615; 83735; 83880; 84100; 84484; 85025; 85610; 85730; 87086; 87400; 87811; 93005; 93225; 96374; 96375; 99284; G0378; J0696; J1171; J1200; J1644; J1815; J1938; J3490; A9270

== ENCOUNTER 2025-06-30 09:48 | Outpatient (RCR) | payer MEDICAID, SELFPAY | END 2025-07-29 23:59 | disposition home or self-care (01) | LOC: SCTC 09:48 | PROVIDERS: PCP Family Medicine; Referring Provider Family Medicine; Visit Provider Nurse Practitioner Family | DX: D69.6 Thrombocytopenia, unspecified (principal); K74.3 Primary biliary cirrhosis; E11.22 Type 2 diabetes mellitus with diabetic chronic kidney disease; N18.9 Chronic kidney disease, unspecified; D63.1 Anemia in chronic kidney disease; Z79.85 Long-term (current) use of injectable non-insulin antidiabetic drugs; Z79.4 Long term (current) use of insulin; K76.6 Portal hypertension; N93.9 Abnormal uterine and vaginal bleeding, unspecified; E66.9 Obesity, unspecified | CPT/HCPCS: 99212; G0463 ==

== ENCOUNTER 2025-07-24 20:42 | Inpatient (IN) | payer MEDICAID, SELFPAY ==
[2025-07-24 20:44] VITALS: BMI 52.1
--- NOTE | 2025-07-24 20:48 | EKG_ITS ---
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
[2025-07-24 22:12] VITALS: BP 115/58; PULSE 90; RESP 20; TEMP 37.4; O2SAT 95
--- NOTE | 2025-07-24 22:18 | XR_ITS ---
EXAMINATION: PA chest single view TECHNIQUE: Upright PA chest single view Date and time: July 24, 2025, 10:17 p.m. INDICATIONS: Shortness of breath chest pain 6 months FINDINGS: Mild prominence left ventricle Mild vascular congestion. No pneumonia or pulmonary edema. The osseous structures are intact IMPRESSION: Mild prominence left ventricle Mild vascular congestion
--- NOTE | 2025-07-24 22:20 | PD.EDRME ---
Rapid Medical Screening Exam E Arrival date/time: 07/24/25 20:42 This is a case of 55-year-old female with no medical history came into the emergency room due to chest pain shortness of breath infection no bleeding and palpitation on and off for 6 months worsening symptoms this patient decided to start consult her in the emergency room Chief Complaint: Chest Pain Time Seen by Provider: 07/24/25 22:18 Vital signs: Vital Signs Temperature 99.3 F 07/24/25 22:12 Pulse Rate 90 07/24/25 22:12 Respiratory Rate 20 07/24/25 22:12 Blood Pressure 115/58 L 07/24/25 22:12 Pulse Oximetry (%) 95 07/24/25 22:12 Oxygen Delivery Method Room Air 07/24/25 22:12 Exam: Obese abdominal exam benign nonsurgical no guarding no rebound no rigidity and RRR clear breath sounds Clinical Impression: Chest pain
[2025-07-24 22:37] LABS: Basophils # (Auto) 0.0 Thou/mm3 (0.0-0.2); Basophils % (Auto) 1 % (0-2.5); Eosinophils # (Auto) 0.0 Thou/mm3 (0.0-0.5); Eosinophils % (Auto) 1 % (0-10); Hematocrit 23.2 % (36.0-46.0); Immature Granulocytes Auto 0.03 Thou/mm3 (0.00-0.00); Lymphocytes # (Auto) 0.1 Thou/mm3 (1.0-4.8); Lymphocytes % (Auto) 7 % (10-50); Mean Corpuscular HGB Conc 32.8 g/dl (31.0-37.0); Mean Corpuscular Hemoglobin 32.1 pg (25.0-35.0); Mean Corpuscular Volume 98 fL (80-100); Monocytes # (Auto) 0.3 Thou/mm3 (0.0-0.8); Monocytes % (Auto) 13 % (0-12); Neutrophils # (Auto) 1.5 Thou/mm3 (1.8-7.7); Neutrophils % (Auto) 77 % (37-80); Nucleated Red Blood Cell # 0.00 Thou/mm3 (0.00-0.00); Nucleated Red Blood Cell % 0 /100 WBC (0); RDW Standard Deviation 56.7 fL (36.4-46.3); Red Blood Count 2.37 Miln/mm3 (4.00-5.20); White Blood Count 2.0 Thou/mm3 (3.6-11.0)
[2025-07-24 22:39] LABS: Hemoglobin 7.6 g/dL (12.0-16.0)
[2025-07-24 22:43] LABS: Platelet Count 16 Thou/mm3 (140-440)
[2025-07-24 22:56] LABS: Alanine Aminotransferase 16 U/L (10-49); Albumin, Serum 3.1 gm/dL (3.5-5.0); Albumin/Globulin Ratio 1.3 (1.2-2.2); Alkaline Phosphatase 67 U/L (46-116); Anion Gap 13 (7-16); Aspartate Amino Transferase 33 U/L (0-34); BUN/Creatinine Ratio 17 Ratio (12-20); Bilirubin,Total 2.5 mg/dL (0.3-1.2); Blood Urea Nitrogen 66 mg/dL (9-23); Calcium 8.2 mg/dL (8.3-10.6); Calcium (Corrected) 8.9 mg/dL (8.5-10.1); Carbon Dioxide 15.1 mMol/L (20.0-31.0); Chloride 109 mMol/L (98-107); Creatinine (Component) 3.9 mg/dL (0.6-1.3); Estimated Creatinine Clearance 21.0 mL/min (>60); Globulin 2.4 gm/dL (2.3-3.5); Glucose 380 mg/dL (74-106); Osmolality,Calculated 308 (275-295); Potassium 4.7 mMol/L (3.4-5.1); Sodium 137 mMol/L (136-145); Total Protein 5.5 gm/dL (5.7-8.2); Troponin I < 0.020 ng/mL (0.0-0.045); eGFR 13 See Note
[2025-07-24 22:57] LABS: D-Dimer 1200 ng/mL (<600)
[2025-07-24 23:00] LABS: B-Type Natriuretic Peptide 223 pg/mL (0-100)
[2025-07-24 23:09] LABS: Collection Type, Urine Clean Catch
[2025-07-24 23:20] LABS: Bacteria,Urine 3+; Bilirubin,Urine Negative (Negative); Blood,Urine 3+ (Negative); Clarity,Urine Turbid (Clear/Hazy); Color,Urine Yellow (Lt Yel-Yel); Glucose, Urine Negative (Negative); Hyaline Casts,Urine 1 /hpf (0-1); Ketones,Urine Negative (Negative); Leukocyte Esterase,Urine Positive (Negative); Nitrite,Urine Negative (Negative); PH,Urine 5.5 (5.0-7.0); Protein,Urine 1+ (Neg - Trace); RBC,Urine 297 /hpf (0-3); Specific Gravity,Urine 1.020 (1.001-1.035); Squamous Epithelial Cell,Urine 3 /hpf (0-5); Urobilinogen,Urine Negative mg/dL (0.0-1.0); WBC,Urine 38 /hpf (0-5)
[2025-07-24 23:25] LABS: HCG Qualitative,Urine Negative
[2025-07-24 23:52] VITALS: BP 136/49; PULSE 86; RESP 19; TEMP 37.7; O2SAT 99
[2025-07-25] VITALS (25 sets, daily range): BP systolic 125–179; BP diastolic 45–71; PULSE 82–93; RESP 14–98; TEMP 36.4–37.7; O2SAT 95–99; BMI 52.1
[2025-07-25 00:48] LABS: Slide Review Platelets confirmed
--- NOTE | 2025-07-25 00:58 | PD.EDCHEST ---
ED Chest Pain RME/HPI General Chief Complaint: Chest Pain Stated Complaint: CHEST PAIN, JOSEPH, FEVER, UTI, VAGINAL BLEEDING Time Seen by Provider: 07/24/25 22:18 Arrival date/time: 07/24/25 20:42 RME / HPI RME / HPI narrative: 07/24/25 20:42 This is a case of 55-year-old female with no medical history came into the emergency room due to chest pain shortness of breath infection no bleeding and palpitation on and off for 6 months worsening symptoms this patient decided to start consult her in the emergency room Dr. Rowland?s Main ED Evaluation: 55yo female s/p hysteroscopy/D&C and implementation of IUD presenting with reported fever x 2-3 days with associated chills and abdominal cramping. No dysuria or frequency. Patient reports ongoing vaginal bleeding using 4 pads. No lightheadedness, dizziness, or near syncope. PMH includes DM, HTN, thrombocytopenia, cirrhosis. PSH includes , tubal litigation, cholecystectomy. Related Data Home Medications ?Medication ?Instructions ?Recorded ?Confirmed insulin glargine 100 unit/mL (3 35 unit subcut BID 09/30/18 05/08/25 mL) subcutaneous pen (Basaglar KwikPen U-100 Insulin) ursodiol 300 mg capsule 300 mg PO TID 09/30/18 05/08/25 ascorbic acid (vitamin C) 1,000 mg 1,000 mg PO DAILY 10/27/23 05/08/25 tablet (Vitamin C) atorvastatin 10 mg tablet 10 mg PO HS 10/27/23 05/08/25 cholecalciferol (vitamin D3) 25 25 mcg PO QDAY 10/27/23 05/08/25 mcg (1,000 unit) tablet (Vitamin D3) gabapentin 400 mg capsule 400 mg PO BID 10/27/23 05/08/25 insulin aspart U-100 100 unit/mL 10 unit subcut TIDPC 10/27/23 05/08/25 (3 mL) subcutaneous pen propranolol 10 mg tablet 10 mg PO BID 10/27/23 05/08/25 medroxyprogesterone 10 mg tablet 10 mg PO 3XD 01/05/25 05/08/25 semaglutide 0.25 mg or 0.5 mg (2 0.5 mg subcut .abdullahi week 01/05/25 05/08/25 mg/3 mL) subcutaneous pen injector (Ozempic) zinc sulfate 50 mg zinc (220 mg) 50 mg PO QDAY 01/05/25 05/08/25 capsule colchicine 0.6 mg tablet 0.6 mg PO QDAY 03/27/25 05/08/25 hydrocodone 10 mg-acetaminophen 1 tab PO Q12H PRN pain 05/08/25 05/08/25 325 mg tablet medroxyprogesterone 5 mg tablet 5 mg PO DAILY 05/08/25 05/08/25 Previous Rx's ?Medication ?Instructions ?Recorded furosemide 20 mg tablet 20 mg PO DAILY Shortness of 01/08/25 Breath, Increased weight by 1-2kg in a day #7 tabs lactulose 10 gram/15 mL oral 20 g (30 mL) PO TID #3,000 mL 05/09/25 solution Allergies Allergy/AdvReac Type Severity Reaction Status Date / Time tramadol Allergy Severe Hives Verified 07/24/25 20:43 ciprofloxacin Allergy Mild Rash Verified 07/24/25 20:43 Iodinated Contrast Media Allergy Verified 07/24/25 20:43 Review of Systems Review of Systems Systems Reviewed: All systems reviewed, normal except as documented Past Medical History Past Medical History NEUROLOGIC: Negative Neurological Disorders or Seizures CARDIAC: Positive Edema and Hypertension; Negative Cardiac Disorders, Myocardial Infarction, Atrial Fibrillation, Hypercholesterolemia, Congestive Heart Failure or Deep Vein Thrombosis RESPIRATORY: Positive Sleep Apnea; Negative Chronic Obstructive Pulmonary Disease (COPD) or Asthma GASTROINTESTINAL: Positive Gastrointestinal Disorders, Cirrhosis, Esophageal Varices, Irritable Bowel and Obesity; Negative Gastrointestinal Bleed, Colitis, Hemorrhoids or Gastroesophageal Reflux Disease GENITOURINARY: Positive Renal Disease; Negative Genitourinary Disorders, Kidney Stones, Polycystic Kidney Disease, Neurogenic Bladder, Inguinal Hernia or Dialysis REPRODUCTIVE: Positive Previous Pregnancies MUSCULOSKELETAL: Positive Arthritis, Degenerative Disk Disease and Gout; Negative Musculoskeletal Disorders ENT: Positive Cataracts; Negative Glaucoma, Blind, Retinal Detachment, Macular Degeneration, Ear Infection, Deafness or Eye Prosthesis ENDOCRINE: Positive Endocrine Disorders; Negative Diabetes Mellitus Type 1 or Diabetes Mellitus Type 2 HEMATOLOGIC: Positive Blood Disorders and Anemia; Negative Sickle Cell Disease PSYCHO/SOCIAL: Positive Depression and Anxiety OTHER HISTORY: Positive Blood Transfusions, MRSA, Chicken Pox and Measles; Negative Autoimmune Disease, Blood Transfusion Reaction, Anesthesia Reactions or Cancer Family History FAMILY HISTORY: Positive Family Cardiac Disorders and Family Surgery; Negative Family Psychiatric Problems, Family Respiratory Disorders, Family Gastrointestinal Problems, Family Cancer or Family Anesthesia Reaction Surgical History SURGICAL: Positive Abdominal Surgery, Tubal Ligation and Section Social History SMOKING STATUS: Former smoker SECOND HAND EXPOSURE: Yes SUBSTANCE USE: does not use ED Exam Narrative Physical exam: GENERAL APPEARANCE: alert and oriented x 4, well-developed, well-nourished, notably obese, nontoxic, no acute distress VITALS: All vitals were reviewed and the pulse ox is 99% on room air, which is normal according to my interpretation. HEENT: Normocephalic, atraumatic; pupils equal, round, reactive to light; EOMI; mucous membranes pink, moist; oropharynx clear NECK: Supple LUNGS: CTABL; no wheezes, no rales, no rhonchi HEART: Regular rate, regular rhythm; normal S1, S2; no murmurs ABDOMEN: non distended; soft, minimal lower abdominal tenderness, no guarding, no rebound; no masses, no organomegaly, no hernia BACK: no CVA tenderness EXTREMITIES: atraumatic; no edema NEUROLOGIC: awake; alert and oriented x4; cranial nerves II-XII grossly intact; no focal sensory or motor deficits PSYCHIATRIC: appropriate mood and affect SKIN: warm, dry, normal color; no rashes Course Course Course Narrative: CXR is ordered for determining the etiology of chest pain. Quality Measures none Orders Category Date Time Status Conscious Sedation [RT Stand By for Procedure] NOW Care 07/24/25 23:54 Active Continuous Pulse Oximetry Care 07/25/25 01:22 Active EKG (ED ONLY) *Do not use* NOW Care 07/24/25 20:48 Completed Procedural Sedation NOW Care 07/24/25 23:54 Active Vital Signs, Non-Routine Timed Care 07/25/25 01:22 Ordered EKG (ED Only) Stat Exams 07/24/25 20:48 Draft US pelvic complete Stat Exams 07/25/25 01:19 Taken XR chest 1V Stat Exams 07/24/25 22:18 Completed BNP [B-Type Natriuretic Peptide] Stat Lab 07/24/25 22:24 Completed Beta Hydroxybutyrate Stat Lab 07/25/25 01:44 Completed CBC Stat Lab 07/24/25 22:24 Completed Comprehensive Metabolic Panel Stat Lab 07/24/25 22:24 Completed D-Dimer Stat Lab 07/24/25 22:24 Completed HCG Qualitative,Urine Stat Lab 07/24/25 22:58 Completed Pheresis Platelets Stat Lab 07/25/25 01:44 Results Troponin I Stat Lab 07/24/25 22:24 Completed Type and Screen Stat Lab 07/25/25 01:44 Results Urinalysis Stat Lab 07/24/25 22:58 Completed Ondansetron Inj [Zofran Inj] Med 07/25/25 01:20 Discontinued 4 mg IVP X1 ONE Sodium Chloride 0.9% 1000 ml [Ns] 1,000 ml Med 07/25/25 01:14 Discontinued IV 999 mls/hr Vital Signs Vital signs: Vital Signs Temperature 99.3 F 07/24/25 22:12 Pulse Rate 90 07/24/25 22:12 Respiratory Rate 20 07/24/25 22:12 Blood Pressure 115/58 L 07/24/25 22:12 Pulse Oximetry (%) 95 07/24/25 22:12 Oxygen Delivery Method Room Air 07/24/25 22:12 Chest Pain MDM Narrative MDM Narrative:: Scribe Attestation: 07/25/25 - Lara Arteaga am scribing for and in the presence of Dr. Rowland. 55yo female s/p hysteroscopy/D&C and implementation of IUD presenting with reported fever x 2-3 days with associated chills and abdominal cramping. No dysuria or frequency. Please see PE findings. Labs demonstrate leukopenia with WBC 2.0, anemia with Hgb 7.6, and pancytopenic with Plt 16. Chemistries notable for worsening GFR of 25 to 13, Glucose 380, CO2 15. UA remarkable for positive leukocyte esterase, RBCs present, 38 WBCs, and 3+ bacteria. Patient received IV Rocephin. Patient placed on nurse monitoring and received IV fluids to correct fluid deficit. Patient will be typed for platelet transfusion. Pelvic ultrasound will be obtained and beta hydroxybutyrate will be added to r/o possibility of early DKA. Pelvis US is unremarkable, no obvious free fluid in the pelvis. Patient gently hydrated with NS with hyperglycemia without ketosis. Case discussed with hospitalist, as patient is presenting with marked reduction in GFR, relative anemia, and hyperglycemia, which will require further management. Dx: acute on chronic anemia, hyperglycemia without ketosis, acute on chronic renal insufficiency, UTI Patient data External records reviewed:: [facility] previous records (Per chart review, patient was admitted here on 05/08/25 for CKD.) Clinical information provided by:: patient Social determinants that could affect healthcare access:: none Patient has the following chronic illnesses:: HTN, primary biliary cirrhosis, CKD stage IV, IDDM, HFpEF (LVEF 55 to 60%) How is presenting disease/condition affected by chronic disease/condition?: uneffected by Evaluation data The following diagnostics were reviewed and interpreted by me:: lab results, radiology exam(s) and EKG tracing(s) Lab and/or radiology exams considered but not ordered:: none Interpretation Summary: EKG done at 2215, sinus rhythm, rate of 89, no acute pathological ST segment changes, no ectopy, normal intervals, left axis deviation, according to my interpretation. [facility] Report Signed Patient: YAQUELIN STONE [facility]. Record#: [id number] Birthdate: 1970 Age/Sex: 55 / F Location: [facility] Attending Dr: Ordering Physician: Davis Arana Date of Service: 07/24/25 Procedure(s): XR chest 1V Accession Number(s): [id number] cc: Flip Ferraro MD; Gustavo Alfonso MD; Davis Arana~ EXAMINATION: PA chest single view TECHNIQUE: Upright PA chest single view Date and time: July 24, 2025, 10:17 p.m. INDICATIONS: Shortness of breath chest pain 6 months FINDINGS: Mild prominence left ventricle Mild vascular congestion. No pneumonia or pulmonary edema. The osseous structures are intact IMPRESSION: Mild prominence left ventricle Mild vascular congestion Dictated By: Gustavo Alfonso MD Signed By: <Electronically signed by Gustavo Alfonso MD in OV> 07/24/25 2318 [address] Preliminary Report Draft Patient: YAQUELIN STONE [facility]. Record#: [id number] Birthdate: 1970 Age/Sex: 55 / F Location: [facility] Attending Dr: Ordering Physician: Date of Service: Procedure(s): Accession Number(s): cc: ~ Pelvic ultrasound (transabdominal). July 25, 2025 0230 hours Clinical history: Menorrhagia Technique: Real-time, grayscale, transabdominal pelvic ultrasound was performed . Comparison: No prior study is available for comparison. Findings: Transabdominal pelvic ultrasound only, as the patient declined transvaginal assessment. Evaluation was limited by excessive bowel gas and shadowing. The uterus is anteverted and measures 12.3 x 5.3 x 5.8 cm. Myometrial echotexture appears mildly heterogeneous due to suboptimal visualisation. The endometrial stripe measures 0.5 cm, slightly thickened in a postmenopausal patient. The ovaries are obscured by bowel gas and are not evaluated on this examination. No adnexal mass or free pelvic fluid is identified on the submitted images. Impression: Limited pelvic ultrasound due to excessive bowel gas and suboptimal acoustic window. 1. Endometrial stripe 0.5 cm, slightly thickened for a postmenopausal patient. Recommend gynecology follow-up for possible endometrial biopsy. 2. No definite adnexal mass or free fluid identified within the limits of the study. 3. Consider repeat evaluation with transvaginal ultrasound if clinically indicated to further assess the uterus and adnexa given limited visualisation on this transabdominal study. Report Electronically Signed By: Keven Dyer 07/25/2025 3:35:27 AM [EST] Medications / Prescriptions Medications or Prescriptions considered but not ordered:: none Medication administrations:: Medication Administration History Discontinued Medications Sodium Chloride (Ns) 1,000 mls @ 999 mls/hr IV .Q1H1M ONE Stop: 07/25/25 02:14 Last Infusion: 07/25/25 03:04 Dose: Infused Documented By: Admin: 07/25/25 02:00 Dose: 999 mls/hr Documented By: AMANDA Ondansetron HCl (Ondansetron Inj 2 Mg/Ml Inj 2 Ml) 4 mg IVP X1 ONE; Protocol Stop: 07/25/25 01:21 Last Admin: 07/25/25 02:09 Dose: 4 mg Documented By: AMANDA see above Consultations Consultation(s) initiated? (list below): Yes Consultation #1 (Physician, Specialty, Details): Discussed case with the resident physician, attending Dr. Torres from Hospitalist service regarding admission. Discussed patients ED course, exam findings, labs, and radiology results. The Hospitalist agrees to accept the patient for admission. Time: 04:15 Diagnosis Chest Pain Differential Diagnosis: other (acute on chronic renal insufficiency, dehydration, electrolyte abnormality, DKA, hyperglycemia without ketosis, dysfunctional uterine bleeding) Most likely diagnosis given after review of the tests above:: see clinical impression below Admission Indicated Admission indicated?: indicated Admission Request Was there a request for admission?: Yes Admission Attestation Admission request attestation: Discussed case with [] from Hospitalist service regarding admission. Discussed patients ED course, exam findings, labs, and radiology results. The Hospitalist [agrees,declines] to accept the patient for admission. Disposition Plan Disposition Plan: Admit Discharge Plan Plan Patient Disposition: Admit Acute Care w/in Hospital Prescriptions/Referrals Prescriptions/Med Rec: No Action ursodiol 300 mg Capsule 300 mg PO TID insulin glargine [Basaglar KwikPen U-100 Insulin] 100 unit/mL (3 mL) Insulin Pen 35 unit SUBCUT BID gabapentin 400 mg capsule 400 mg PO BID Patient Comments: TAKE ONE CAPSULE BY MOUTH TWICE DAILY FOR NERVE PAIN propranolol 10 mg tablet 10 mg PO BID Patient Comments: TAKE ONE TABLET BY MOUTH TWICE DAILY FOR BLOOD PRESSURE atorvastatin 10 mg tablet 10 mg PO HS Patient Comments: TAKE ONE TABLET BY MOUTH EVERY DAY FOR CHOLESTEROL cholecalciferol (vitamin D3) [Vitamin D3] 25 mcg (1,000 unit) Tablet 25 mcg PO QDAY insulin aspart U-100 100 unit/mL (3 mL) Insulin Pen 10 unit SUBCUT TIDPC Rx Instructions: TID after meals ascorbic acid (vitamin C) [Vitamin C] 1,000 mg Tablet 1,000 mg PO DAILY Ozempic 0.25 mg or 0.5 mg (2 mg/3 mL) pen injector 0.5 mg SUBCUT .abdullahi week Patient Comments: INJECT 0.5 MG SUBCUTANEOUSLY EVERY WEEK FOR DIABETES medroxyprogesterone 10 mg tablet 10 mg PO 3XD Rx Instructions: 3 tablets daily zinc sulfate 50 mg zinc (220 mg) Capsule 50 mg PO QDAY furosemide 20 mg tablet 20 mg PO DAILY Qty: 7 0RF Patient Comments: TAKE ONE TABLET BY MOUTH EVERY MORNING A DIURETIC medroxyprogesterone 5 mg tablet 5 mg PO DAILY Patient Comments: TAKE ONE TABLET BY MOUTH EVERY DAY hydrocodone-acetaminophen 10-325 mg tablet 1 tab PO Q12H PRN (Reason: pain) Patient Comments: TAKE ONE TABLET BY MOUTH EVERY TWELVE HOURS NEEDED FOR PAIN lactulose 10 gram/15 mL solution 20 g PO TID Qty: 3000 0RF colchicine 0.6 mg tablet 0.6 mg PO QDAY Referrals: Flip Ferraro MD [Primary Care Provider, Family Practice] - In 1 week Problem List Clinical Impression: Acute on chronic anemia, Acute on chronic renal insufficiency, Hyperglycemia without ketosis, UTI (urinary tract infection) Patient/Caregiver Discharge Instructions Print Language: Pashto Stand Alone Forms: Lucie Award Info., Patient Portal Info Letter
--- NOTE | 2025-07-25 01:19 | XR_ITS ---
Examination: Pelvic ultrasound, transabdominal, complete Technique: Transabdominal ultrasound of the pelvis performed using grayscale imaging Date and time of exam: July 25, 2025, 0230 hours INDICATIONS: Vaginal bleeding pelvic cramping beginning 3 weeks ago. FINDINGS: Uterus 12.3 cm endometrial stripe 0.5 cm No uterine mass Ovaries obscured by bowel gas IMPRESSION: Limited study. Enlarged uterus but no discrete uterine mass
[2025-07-25 02:00] LABS: Beta Hydroxybutyrate 0.1 mmol/L (<0.6)
[2025-07-25] MEDS: SODIUM CHLORIDE 0.9% 1000 ML 1,000 ML 999 ML IV (02:00)
[2025-07-25] MEDS: ONDANSETRON INJ 2 MG/ML INJ 2 ML 4 MG IVP (02:09)
--- NOTE | 2025-07-25 03:28 | PRELIM_ITS ---
Pelvic ultrasound (transabdominal). July 25, 2025 0230 hours Clinical history: Menorrhagia Technique: Real-time, grayscale, transabdominal pelvic ultrasound was performed . Comparison: No prior study is available for comparison. Findings: Transabdominal pelvic ultrasound only, as the patient declined transvaginal assessment. Evaluation was limited by excessive bowel gas and shadowing. The uterus is anteverted and measures 12.3 x 5.3 x 5.8 cm. Myometrial echotexture appears mildly heterogeneous due to suboptimal visualisation. The endometrial stripe measures 0.5 cm, slightly thickened in a postmenopausal patient. The ovaries are obscured by bowel gas and are not evaluated on this examination. No adnexal mass or free pelvic fluid is identified on the submitted images. Impression: Limited pelvic ultrasound due to excessive bowel gas and suboptimal acoustic window. 1. Endometrial stripe 0.5 cm, slightly thickened for a postmenopausal patient. Recommend gynecology follow-up for possible endometrial biopsy. 2. No definite adnexal mass or free fluid identified within the limits of the study. 3. Consider repeat evaluation with transvaginal ultrasound if clinically indicated to further assess the uterus and adnexa given limited visualisation on this transabdominal study. Report Electronically Signed By: Keven Dyer 07/25/2025 3:35:27 AM [EST]
[2025-07-25] MEDS: cefTRIAXone/D5w 1gm IV premix 1 GM/50 ML BAG IV (05:05)
--- NOTE | 2025-07-25 05:55 | EDNOTE_ITS ---
Emergency Room Addendum Addendum Narrative: The Hospitalist requested [facility] consultation prior to accepting the patient for admission. Pelvic exam performed with female explosives operator at bedside, which demonstrated a small amount of blood in the vault. No increased bleeding with valsalva. 0558: Discussed case with Dr. Pace from [facility] regarding consultation. Discussed patients ED course, exam findings, labs, and radiology results. Agrees to consult. 0559: Discussed case with the resident physician, attending Dr. Torres from Hospitalist service regarding admission. Discussed patients ED course, exam findings, labs, and radiology results. The Hospitalist agrees to accept the patient for admission.
--- NOTE | 2025-07-25 06:07 | EVENTNT_ITS ---
Documentation for date of: 07/25/25 Event Note Event Note: 54 year old female with PMHx of Hypertension, primary biliary cirrhosis, CKD stage IV, insulin-dependent type 2 diabetes, HFpEF (LVEF 55 to 60%) who presented to the ED due to fever, shortness of breath and noncardiac chest pain for the past 3-4 days as well as profuse vaginal bleeding with clots going for about 3 weeks. Patient also had D&C done at [facility] for the vaginal bleed but bleeding continues despite getting TXA x5-7 days. At the time of request for admission informed ED doc about the need for OBGYN to evaluate the patient. Around 6:10 am ED doc spoke to OBGYN who are happy to consult. Day team to follow up. Case discussed with my attending Dr. Melissa Ferraro MD PGY-2
[2025-07-25 06:37] LABS: Lactate (Lactic Acid) 1.6 mMol/L (0.4-2.0)
[2025-07-25] MEDS: HYDROmorphone INJ 2 MG/ML VIAL 1 MG IVP (06:38)
--- NOTE | 2025-07-25 06:52 | PC.NURSE ---
PT WANTING TO SIT UP. A&O X 4. ASSISTED PT TO SITT UP ON BEDSIDE. HAS SEVER BAck problems.
[2025-07-25 07:02] LABS: Fibrinogen 357 mg/dL (175-375)
[2025-07-25 07:52] LABS: Base Excess -10 (-3-3); HCO3 16 mEq/L (20-26); Inspired Oxygen, FIO2 21 %; O2 Saturation 94 % (91-98); PCO2 33 mmHg (32.0-48.0); PO2 69 mmHg (83-108); pH, Arterial 7.28 (7.35-7.45)
[2025-07-25 07:53] LABS: Allen Test Performed/OK; Puncture Site Right Radial
[2025-07-25 08:47] LABS: Basophils # (Auto) 0.0 Thou/mm3 (0.0-0.2); Basophils % (Auto) 1 % (0-2.5); Eosinophils # (Auto) 0.0 Thou/mm3 (0.0-0.5); Eosinophils % (Auto) 2 % (0-10); Hematocrit 24.3 % (36.0-46.0); Immature Granulocytes Auto 0.09 Thou/mm3 (0.00-0.00); Lymphocytes # (Auto) 0.1 Thou/mm3 (1.0-4.8); Lymphocytes % (Auto) 6 % (10-50); Mean Corpuscular HGB Conc 32.1 g/dl (31.0-37.0); Mean Corpuscular Hemoglobin 32.0 pg (25.0-35.0); Mean Corpuscular Volume 100 fL (80-100); Monocytes # (Auto) 0.2 Thou/mm3 (0.0-0.8); Monocytes % (Auto) 10 % (0-12); Neutrophils # (Auto) 1.4 Thou/mm3 (1.8-7.7); Neutrophils % (Auto) 76 % (37-80); Nucleated Red Blood Cell # 0.00 Thou/mm3 (0.00-0.00); Nucleated Red Blood Cell % 0 /100 WBC (0); RDW Standard Deviation 58.1 fL (36.4-46.3); Red Blood Count 2.44 Miln/mm3 (4.00-5.20); White Blood Count 1.8 Thou/mm3 (3.6-11.0)
[2025-07-25 08:48] LABS: Hemoglobin 7.8 g/dL (12.0-16.0); Platelet Count 24 Thou/mm3 (140-440)
[2025-07-25 09:01] LABS: INR 1.6 (0.9-1.3); Partial Thromboplastin Time 34.2 Seconds (22.0-36.0); Prothrombin Time 16.2 Seconds (9.0-12.2)
[2025-07-25 09:39] LABS: Slide Review Platelets confirmed
[2025-07-25] MEDS: DOCUSATE SOD 100 MG CAPSULE PO (10:26)
--- NOTE | 2025-07-25 10:49 | PD.GYNCONS ---
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 Patient is anemic with a hemoglobin of 7.8 and is currently receiving blood. Of note her white count is low at 1.8 and her platelets are currently very low at 24. Patient has had vaginal bleeding on and off for years. She states that she is currently on Provera 10 mg in the morning 5 mg at lunch and 10 mg at the evening prescribed by she thinks a project management intern in [place]. Dr. Gee attempted a hysteroscopy, D&C, NovaSure ablation in 11/22 that was not successful. Someone else performed a D&C I am not sure if that one was in [place]. She states most recently on July 06, 2025, she underwent some type of hysteroscopy, D&C at [facility]. At some point ,someone tried to place an IUD, but it fell out per patient. She is unsure whether she has an IUD in place or not currently.. I cannot see strings today. The patient had a transabdominal ultrasound revealing a normal stripe. To me there appears to be a whitish area in her endometrium that might be an IUD. The images are extremely poor quality. Per the radiologist the patient refused a transvaginal ultrasound exam . The patient is a fair historian. She states that she had a classical 29 years ago for distress and something about a transverse presentation followed by repeat 23 years ago with a tubal ligation. O note she has one vertical incision and one Pfannenstiel's incision. She has multiple health problems. She is morbidly obese with a current BMI of 52, she is an insulin requiring diabetic. She has multiple admissions for I&D's for recurrent abscesses. 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 She currently has stage IV chronic kidney disease but is not on dialysis. She is also hypertensive. According to the notes ,[facility] has been seeing her and is considering a liver transplant. Gynecology was consulted for management of her vaginal bleeding. She has had a D&C with Dr. Gee in 2 revealing no evidence of endometrial cancer. Patient states that she just wants a hysterectomy. She is tired of people putting a Band-Aid on her vaginal bleeding . cc:: cc: Asael Tracey, DO Review of Systems Review of Systems Narrative Review of Systems: Patient reports consistent vaginal bleeding over the last 3 weeks. She was just taken to the OR less than 3 weeks ago for a hysteroscopy D&C at [facility]. I have no records. She denies foul discharge. She denies pelvic pain. Past Medical History Past Medical History Comments PMH COMMENT: NEUMANN\Biliary cirrhosis Hepatomegaly Splenomegaly Chronic hypertension Morbid obesity with a BMI of 52 Insulin requiring diabetes Stage IV CKD current creatinine 3.9 Severe thrombocytopenia with platelets of 24 Neutropenia with white count of 1.8 section x 2, second 1 with a tubal ligation Cholecystectomy Multiple admissions for I&D of abscesses under breasts thighs and buttocks Meds Home Medications and Allergies Home Medications ?Medication ?Instructions ?Recorded ?Confirmed ?Type insulin glargine 100 unit/mL (3 35 unit subcut BID 09/30/18 05/08/25 History mL) subcutaneous pen (Basaglar KwikPen U-100 Insulin) ursodiol 300 mg capsule 300 mg PO TID 09/30/18 05/08/25 History ascorbic acid (vitamin C) 1,000 mg 1,000 mg PO DAILY 10/27/23 05/08/25 History tablet (Vitamin C) atorvastatin 10 mg tablet 10 mg PO HS 10/27/23 05/08/25 History cholecalciferol (vitamin D3) 25 25 mcg PO QDAY 10/27/23 05/08/25 History mcg (1,000 unit) tablet (Vitamin D3) gabapentin 400 mg capsule 400 mg PO BID 10/27/23 05/08/25 History insulin aspart U-100 100 unit/mL 10 unit subcut TIDPC 10/27/23 05/08/25 History (3 mL) subcutaneous pen propranolol 10 mg tablet 10 mg PO BID 10/27/23 05/08/25 History medroxyprogesterone 10 mg tablet 10 mg PO 3XD 01/05/25 05/08/25 History semaglutide 0.25 mg or 0.5 mg (2 0.5 mg subcut .abdullahi week 01/05/25 05/08/25 History mg/3 mL) subcutaneous pen injector (Ozempic) zinc sulfate 50 mg zinc (220 mg) 50 mg PO QDAY 01/05/25 05/08/25 History capsule colchicine 0.6 mg tablet 0.6 mg PO QDAY 03/27/25 05/08/25 History hydrocodone 10 mg-acetaminophen 1 tab PO Q12H PRN pain 05/08/25 05/08/25 History 325 mg tablet medroxyprogesterone 5 mg tablet 5 mg PO DAILY 05/08/25 05/08/25 History Allergies Allergy/AdvReac Type Severity Reaction Status Date / Time tramadol Allergy Severe Hives Verified 07/24/25 20:43 ciprofloxacin Allergy Mild Rash Verified 07/24/25 20:43 Iodinated Contrast Media Allergy Verified 07/24/25 20:43 Exam - ASSISTANT PROFESSOR OF RADIOLOGY Vital Signs Temp Pulse Resp BP Pulse Ox O2 Del Method 98.9 F 83 19 157/52 H 95 Room Air 07/25/25 10:12 07/25/25 10:12 07/25/25 10:12 07/25/25 10:12 07/25/25 10:12 07/25/25 10:12 Narrative Exam Patient is alert and oriented x 3. She is cooperative and a fairly good historian. Constitutional Constitutional: mild distress, morbidly obese and chronically ill appearing Routine Abdominal Exam Abdominal: Present soft and surgical scars Comments: Patient has a large vertical scar under her umbilicus, she is a Pfannenstiel scar, she has a scar in her right lower abdomen approximately 3 inches long from some type of abscess removal, she has a scar around her umbilicus from cholecystectomy Routine Exam External: Present normal urethra appearance Comments: Spec exam was performed cervix is very posterior. Small amount of old brownish blood is coming from her cervix, no clots. I cannot visualize the entire cervix well. Exam extremely limited by patient's body habitus and the fact I am performing a speculum exam on a bedpan in the ER. Her mons pubis is extremely obese her external labia appear grossly normal. No tenderness to palpation. I cannot palpate the size of the uterus on bimanual exam secondary to body habitus. ASSISTANT PROFESSOR OF RADIOLOGY - Results Labs 07/25/25 08:21 07/24/25 22:24 Labs: Short CBC 07/24/25 07/25/25 Range/Units 22:24 08:21 WBC 2.0 L 1.8 L (3.6-11.0) Thou/mm3 Hgb 7.6 L 7.8 L (12.0-16.0) g/dL Hct 23.2 L 24.3 L (36.0-46.0) % Plt Count 16 L* 24 L* D (140-440) Thou/mm3 BMP 07/24/25 22:24 Sodium 137 Potassium 4.7 Chloride 109 H Carbon Dioxide 15.1 L BUN 66 H Creatinine 3.9 H Glucose 380 H Calcium 8.2 L Cardiac Enzymes 07/24/25 Range/Units 22:24 Troponin I < 0.020 (0.0-0.045) ng/mL Liver Function 07/24/25 Range/Units 22:24 Total Bilirubin 2.5 H (0.3-1.2) mg/dL AST 33 (0-34) U/L ALT 16 (10-49) U/L Alkaline Phosphatase 67 (46-116) U/L Albumin 3.1 L (3.5-5.0) gm/dL Urine 07/24/25 Range/Units 22:58 Urine Color Yellow (Lt Yel-Yel) Urine Clarity Turbid A (Clear/Hazy) Urine pH 5.5 (5.0-7.0) Ur Specific [place] 1.020 (1.001-1.035) Urine Protein 1+ A (Neg - Trace) Urine Glucose (UA) Negative (Negative) ABG Interpretation ABG results: 07/25/25 07:28 ABG pH 7.28 L ABG pCO2 33 ABG pO2 69 L ABG HCO3 16 L ABG O2 Saturation 94 ABG Base Excess -10 L Assessment and Plan Assessment and plan (1) Acute on chronic anemia: Status: Acute (2) CKD (chronic kidney disease): Status: Acute (3) Thrombocytopenia: Status: Acute (4) Neutropenia: Status: Acute (5) Cirrhosis: Status: Acute (6) Vaginal bleeding: Status: Acute Assessment and plan: Patient has had a history of hysteroscopy, dilation curettage x 3 since October 2023. She states the most recent hysteroscopy was performed less than 3 weeks ago at [facility]. She is on Provera 10 mg in the morning 10 mg at nighttime and 5 in the daytime. Patient probably does at some point will need a hysterectomy. She needs to have this performed at a tertiary care center. She an established patient at [facility] since she just underwent a hysteroscopy D&C at [facility] in [place] on 07/06/2025. I strongly suggest this is where she follows up. This will likely be a complicated procedure due to her elevated creatinine to 3.9, her severe neutropenia with a white count of 1.8, her severe thrombocytopenia with platelets of 24. She will most likely need to be cleared by multiple services prior to going to the OR including nephrology, hepatology and possible infectious disease. She apparently is also set up with the hepatology service at [facility] so they may be more familiar with her liver pathology. If she does have a hysterectomy performed, she may be a candidate for a robotic hysterectomy. She is morbidly obese and if we were to proceed to the OR here she would have to undergo an abdominal hysterectomy. I suggest a transfusion and referral back up to gynecology [facility] in the [place] area at [facility] to evaluate for a possible robotic hysterectomy. She is not bleeding heavily enough at this time to warrant an abdominal hysterectomy here at [facility]. 30 minutes total time was spent discussing patient's history, performing a physical exam, and reviewing her extensive history of ER visits, admissions, op reports, pathology, imaging, and labs on the computer. 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
--- NOTE | 2025-07-25 11:57 | EDNOTE_ITS ---
Emergency Room Addendum Addendum Narrative: The patient was queued for admission by previous night physician. The patient was evaluated by overnight hospitalist team. However, they are requesting OBGYN to consult prior to admission. Labs were reviewed, H/H 7.6/23.2, plt count 16, co2 15.1 mMol/L. Ultrasound re port reviewed which shows Enlarged uterus but no discrete uterine mass . I spoke with OBGYN Dr. Pace. Discussed patients PMHx, HPI, ED course, labs, and radiology results. She states she was not asked to see the patient and only to be aware of the patient . I then spoke with OBGYN Dr. Whitaker. Discussed patients PMHx, HPI, ED course, labs, and radiology results. She agrees to evaluate the patient in the ED and consult. I discussed case with hospitalist Dr. Tracey. Discussed patients PMHx, HPI, ED course, labs, and radiology results. The hospitalist agree to accept the patient for admission and informed OBGYN is consulting.
--- NOTE | 2025-07-25 13:30 | ESHP_ITS ---
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 Gresham (08/2024), anemia, who presented to the emergency room with chief complain of vaginal bleeding and pyrexia (subjective). Patient stated she had a recent hysteroscopy with bleeding that now appears as scant per patient and physical exam. Patient denied melena or hematochezia. Patient denied syncope. Patient stated that she has recieved several hysteroscopy but is a poor surgical candidate for hysterectomy. MEDICAL ASST consulted from emergency room given ELEMENTARY READING SPECIALIST as underlying condition for acute blood loss anemia. ELEMENTARY READING SPECIALIST stated several hysteroscopies have been performed including 11/22 and 07/06/2025 at [facility] w/ D&C. Given complex nature and recent D&C/hysteroscopy at [facility], recommending patient return to this facility. Acute blood loss anemia 1 unit and 1 Units of platelets transfused. Repeat CBC. Continue to monitor. Acute blood loss likely secondary to acute vaginal bleeding. JULIUS on CKD w/ metabolic acidosis anion gap, and hyperkalemia, likely secondary to pre-renal julius given BUN/Cr ratio as there is blood loss vs worsening CKD vs obstructive. strict in and out. gentle hydration given blood pressure and history of CHF HFpEF-does not appear fluid overloaded currently. Urine lytes. Consult Dr. Agarwal, nephrology, appreciate recs. Diabetes mellitus type 2, resume insulin, home dose is glargine 35 BID. Start sliding scale. Degludec 35 qday. A1c ordered Hx of CHF, no fluid restrictions as patient has pre-renal JULIUS on CKD from blood loss. Holding Lasix given JULIUS HTN home medication of losartan, holding given JULIUS. Start Amlodipine Hold colchicine given JULIUS for gout 1. Acute blood loss anemia secondary to recent hyerscopy and D&C 2.Normocytic Anemia 3. JULIUS on CKD, likely pre-renal 4.Metabolic Acidosis, anion gap, likely secondary to uremia 5.Hyperkalemia 6.Hyperglycemia 7.Diabetes Mellitus Type 2-insulin dependet 8. 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 Gresham) 13 hx of Congestive Heat Failure CHF HFpEF 55 to 60% (01/06/2025) Diastolic Dysfunciton Stage I 14. HTN 15 Gout Senior Resident Attestation: I have discussed the case with supervising physician and risk intern physician involved in the care of patient. I personally saw and examined patient and discussed the assessment and plan with the entire medical team, including attending. I agree with assessment and plan as documented below. - The patient's plan was discussed with attending Dr. Alexy Wiley MD PGY2 Internal Medicine HPI History of Present Illness History of present illness: 54 year old female with PMHx of Hypertension, primary biliary cirrhosis, CKD stage IV, insulin-dependent type 2 diabetes, HFpEF (LVEF 55 to 60%) who presented to the ED due to fever, shortness of breath and noncardiac chest pain for the past 3-4 days as well as profuse vaginal bleeding with clots going for about 3 weeks. Patient admitted for acute blood loss anemia. In the ED VSS labs demonstrate leukopenia with WBC 2.0, anemia with Hgb 7.6, and pancytopenic with Plt 16; betahydroxy butyrate was wnl. Chemistries notable for worsening GFR of 25 to 13, Glucose 380, CO2 15. UA remarkable for positive leukocyte esterase, RBCs present, 38 WBCs, and 3+ bacteria. Patient received IV Rocephin. Patient placed on educational resource coordinator and received IV fluids to correct fluid deficit. Patient was typed for platelet transfusion. 1 unit pRBC and 1 unit of platelets given. Pelvic US was unremarkable. Obgyn was consulted recommend transfusion and referral to gynecology in the [place] at [facility] for possible hysterectomy, and she is not bleeding heavily enough at this time to warrant an abdominal hysterectomy here at [facility]. Upon initial evaluation patient states that she has had bleeding episodes following hysteroscopies since july 2023. This episode started on Jul 06 following a hysteroscopy at [facility] where she had polyps or fibroids removed, but she was uncertain which one. The bleeding continues despite getting TXA x5-7 days. She states that she soaks blood through her thick diaper pad each night. She is passing clots and is crampy, and now she is getting light headed when she stands up. Patient informs interviewer that her presentation is most likely due to her poor synthetic liver function. Code: Full Insulin: Lantus 35 units AM and PM, Aspart on sliding scale Medical Hx: Diabetes type I, liver disease (ROSE) with thrombocytopenia, CKD follwong with Dr. Neil, Diastolic HF (following Dr. 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 Exam Vital Signs Temp Pulse Resp BP Pulse Ox O2 Del Method 98.9 F 84 19 177/64 H 98 Room Air 07/25/25 12:13 07/25/25 12:13 07/25/25 12:13 07/25/25 12:13 07/25/25 12:13 07/25/25 11:56 Narrative Exam GENERAL APPEARANCE: AOx3. NAD, activity normal for age, obese, no cyanosis, pallor, or diaphoresis. HEENT: Normocephalic atraumatic, no facial trauma, neck is supple. Lids/conjunctiva normal. Mucous membranes moist, nares normal, lips/teeth normal uvula midline without oral pharyngeal erythema, exudate or swelling TMs normal bilaterally. No lymphangitis/lymphedema. CARDIAC: Regular rate and rhythm, S1+S2 heard. No murmurs, rubs, or gallops noted RESPIRATORY: respiratory effort normal, speaks in full sentences, no tripod position, no accessory muscle use. Lungs clear to auscultation without rhonchi, wheezes, rales ABDOMINAL: NBS. Soft, ND/NT. No evidence of fluid wave. No pulsatile masses on exam, rebound tenderness, Kwok sign or pain over Mcburney's point. MUSCLES/EXTREMITIES: No abnormal range of motion, no swelling. DERM: Warm, pink and dry. No rashes, dermatoses, petechiae or lesions. NEUROLOGICAL: Speech is clear and appropriate. Normal level of consciousness. Gait and coordination are normal. 5/5 strength in all extremities. PSYCH: Normal mood and affect. Judgement/competence is appropriate : Patient declined exam, stating 2 other people had already examined Results: Labs 07/26/25 04:35 07/26/25 13:35 Labs: Short CBC 07/24/25 07/25/25 Range/Units 22:24 08:21 WBC 2.0 L 1.8 L (3.6-11.0) Thou/mm3 Hgb 7.6 L 7.8 L (12.0-16.0) g/dL Hct 23.2 L 24.3 L (36.0-46.0) % Plt Count 16 L* 24 L* D (140-440) Thou/mm3 BMP 07/24/25 22:24 Sodium 137 Potassium 4.7 Chloride 109 H Carbon Dioxide 15.1 L BUN 66 H Creatinine 3.9 H Glucose 380 H Calcium 8.2 L Cardiac Enzymes 07/24/25 Range/Units 22:24 Troponin I < 0.020 (0.0-0.045) ng/mL Liver Function 07/24/25 Range/Units 22:24 Total Bilirubin 2.5 H (0.3-1.2) mg/dL AST 33 (0-34) U/L ALT 16 (10-49) U/L Alkaline Phosphatase 67 (46-116) U/L Albumin 3.1 L (3.5-5.0) gm/dL Urine 07/24/25 Range/Units 22:58 Urine Color Yellow (Lt Yel-Yel) Urine Clarity Turbid A (Clear/Hazy) Urine pH 5.5 (5.0-7.0) Ur Specific [place] 1.020 (1.001-1.035) Urine Protein 1+ A (Neg - Trace) Urine Glucose (UA) Negative (Negative) ABG Interpretation ABG results: 07/25/25 07:28 ABG pH 7.28 L ABG pCO2 33 ABG pO2 69 L ABG HCO3 16 L ABG O2 Saturation 94 ABG Base Excess -10 L Quality Measures Quality Measures none Medications Home Medications and Allergies Home Medications ?Medication ?Instructions ?Recorded ?Confirmed ?Type insulin glargine 100 unit/mL (3 35 unit subcut BID 11/1707/25/25 History mL) subcutaneous pen (Basaglar KwikPen U-100 Insulin) ursodiol 300 mg capsule 300 mg PO TID 09/30/1807/25 History ascorbic acid (vitamin C) 1,000 mg 1,000 mg PO DAILY 0 10/27/23 07/25/25 History tablet (Vitamin C) atorvastatin 10 mg tablet 10 mg PO HS 10/27/23 5 History cholecalciferol (vitamin D3) 25 25 mcg PO QDAY 4 07/25/25 History mcg (1,000 unit) tablet (Vitamin D3) gabapentin 400 mg capsule 400 mg PO BID 10/27/2307/25 History insulin aspart U-100 100 unit/mL 10 unit subcut TIDPC 10/27/23 07/25/25 History (3 mL) subcutaneous pen propranolol 10 mg tablet 10 mg PO BID 10/27/23 History medroxyprogesterone 10 mg tablet 10 mg PO 3XD 01/05/25 07/25/25 History semaglutide 0.25 mg or 0.5 mg (2 0.5 mg subcut .abdullahi orozco 01/05/25 07/25/25 History mg/3 mL) subcutaneous pen injector (Ozempic) zinc sulfate 50 mg zinc (220 mg) 50 mg PO QDAY 5 07/25/25 History capsule colchicine 0.6 mg tablet 0.6 mg PO QDAY 03/27/2506/30 History hydrocodone 10 mg-acetaminophen 1 tab PO Q12H PRN pain 05/08/25 07/25/25 History 325 mg tablet medroxyprogesterone 5 mg tablet 5 mg PO DAILY 05/08/25 07/25/25 History Allergies Allergy/AdvReac Type Severity Reaction Status Date / Time tramadol Allergy Severe Hives Verified 07/24/25 20:43 ciprofloxacin Allergy Mild Rash Verified 07/24/25 20:43 Iodinated Contrast Media Allergy Verified 07/24/25 20:43 Visit Medications Acetaminophen (Acetaminophen 325 Mg Tablet) 650 mg PO Q6H PRN PRN Reason: Fever >100.4 or pain 1-3 Stop: 08/24/25 09:41 Dextrose (Dextrose 50%-Water Inj 50 Ml Syringe) 25 ml IV Q15MIN PRN PRN Reason: BG 50-70 responsive npo pt Stop: 08/24/25 13:28 Dextrose (Dextrose 50%-Water Inj 50 Ml Syringe) 50 ml IV Q15MIN PRN PRN Reason: BG <50 OR BG <70 & pt unresponsive Stop: 08/24/25 13:28 Docusate Sodium (Docusate Sod 100 Mg Capsule) 100 mg PO QDAY [facility]; Protocol Stop: 08/24/25 09:44 Last Admin: 07/25/25 10:26 Dose: 100 mg Glucagon (Glucagon Inj 1 Mg Vial) 1 mg IM Q15MIN PRN PRN Reason: BG <70, and no IV access Insulin Human Lispro (Insulin Lispro (Admelog) 1 Unit/0.01 Ml Unit) 0 unit SC [facility]; Protocol Stop: 08/24/25 16:59 Ondansetron HCl (Ondansetron Inj 2 Mg/Ml Inj 2 Ml) 4 mg IVP Q6H PRN; Protocol PRN Reason: NAUSEA OR VOMITING Stop: 08/24/25 09:41 Pantoprazole Sodium (Pantoprazole Inj 40 Mg Vial) 40 mg IVP QDAY [facility] Stop: 08/24/25 09:44 Last Admin: 07/25/25 10:26 Dose: 40 mg Discontinued Medications Hydromorphone HCl (Hydromorphone Inj 2 Mg/Ml Vial) 1 mg IVP X1 ONE Stop: 07/25/25 05:49 Last Admin: 07/25/25 06:38 Dose: 1 mg Sodium Chloride (Ns) 1,000 mls @ 999 mls/hr IV .Q1H1M ONE Stop: 07/25/25 02:14 Last Infusion: 07/25/25 03:04 Dose: Infused Ceftriaxone Sodium/Dextrose (Rocephin/D5w 1gm Iv Premix) 1 gm in 50 mls @ 100 mls/hr IV X1 ONE Stop: 07/25/25 04:55 Last Infusion: 07/25/25 05:52 Dose: Infused Methylprednisolone Sodium Succinate (Methylprednisolone Sod Succ 40 Mg/Ml Vial) 60 mg IVP X1 ONE Stop: 07/25/25 08:10 Last Admin: 07/25/25 09:10 Dose: 60 mg Ondansetron HCl (Ondansetron Inj 2 Mg/Ml Inj 2 Ml) 4 mg IVP X1 ONE; Protocol Stop: 07/25/25 01:21 Last Admin: 07/25/25 02:09 Dose: 4 mg Assessment & Plan Plan 54 year old female with PMHx of Hypertension, primary biliary cirrhosis, CKD stage IV, insulin-dependent type 2 diabetes, HFpEF (LVEF 55 to 60%) who presented to the ED due to fever, shortness of breath and noncardiac chest pain for the past 3-4 days as well as profuse vaginal bleeding with clots going for about 3 weeks[address] NephDr. Rashaad coughlin, was consulted and he says continue with gentle hydration. #Acute blood loss anemia likely 2/2 vaginal bleed #Acute Normocytic Anemia Patient reports other instances of similar presentation, and is well aware of pathophysiology of her bleeding. States that the hysteroscopies are a bandage to her problem and she wants her uterus removed, but no one will do a hysterectomy because she has low platelets. OB, Dr. Whitaker, was consulted and recommends transfusion and referral back up to [facility] gynecology in [facility], and that she is not bleeding heavily enough to warrant an abdominal hysterectomy in [facility]. PT: 16.2 INR 1.6 Plan: -1 unit pRBC in ED repeat CBC: HGB 8.5 -1 unit platelets in ED plt: 13 (24) -CTM in AM -Transfuse if Hb >7 w/ post transfusion H+H protocol #JULIUS on CKD #AG Metabolic Acidosis #Hyperuremia #Hyperkalemia ABG pH 7.3 pCO2 27L O2 142 HCO3 13, Creatinine: 4.2 BUN 87, metabolic acidosis most likely due to hyperuremia. Betahydroxybutyrate normal therefore less likely DKA. Metabolic acidosis was treated with Bicitrate 30mL. Potassium of 6 gave insulin 5 units IV, calcium gluconate 1g. NephDr. Rashaad coughlin, was consulted and recommends gentle hydration. Plan: -CTM renal panel -Bicitrate for metabolic acidosis -Hyperkalemia cocktail insulin, IV calcium gluconate, and albuterol - IVF #Hyperglycemia #Hx of DM2 on Insulin Glucose 349, at home uses lantus 35 units AM + PM, and aspartate on a sliding scale Plan: -Lantus 35 AM -SSI step 2 -ACHS glucose checks #Hyperbilirubinemia T. Bili: 2.5, no abdominal tenderness on exam. Abd US showed normal common bile duct, moderate hepatomegaly, cirrhosis, fatty infiltration, no focal liver lesions. Most likely due to dehydration and history of ROSE vs gallstone, but less likely given cholestectomy in past medical history vs primary biliary cholangitis. Plan: -FUP Indirect direct -Follow up with R upper quadrant US #Hx of Cirrhosis due to ROSE #History of Primary Biliary Cirrhosis, per chart review. 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 Plan: -Transfuse if Hb >7 w/ post transfusion H+H protocol #Hx of HFpEF 55-60% grade I diastolic disfunction Plan: -CTM #Hx of HTN Patient has a past medical history of hypertension with home medication of Losartan 25 mg qday. Currently holding Losartan given JULIUS on CKD. Plan: -Labtetalol 10 mg IVP Q4HR PRN -HOLD home Losartan -Amlodipine 5 mg PO QD #History of Gout Past medical history of gout, currenlty holding Colchicine given JULIUS on CKD. PLan -Hold Colchicine. #Hx of chronic back pain Plan: -Dilaudid 0.5 mg ICP Q4HR PRN Health Maintenance: Code status: Full DVT prophylaxis: SCDs GI prophylaxis: Zofran Diet: Carb consistent Douglass: None Lines: PIV Supplemental O2: NC Disposition: Tele Patient seen and reviewed with attending Dr. Tracey and supervising resident Dr. Wiley. Note written by Negro Stock MD PGY-1 Attending Provider Attestation/Addendum I or my resident physicians have discussed care with the ED physician and I have made the decision to admit. I have discussed and was present for the essential components of the history, physical examination, diagnosis, and treatment plan with the resident. I agree with the patient's care as documented by the resident and amended herein by me. Micah Tracey DO. Although this document has been carefully reviewed, there may still be some phonetic and other typographical errors. These errors are purely grammatical due to imperfections in the software program and should not be construed in any way to compromise the substance of the patient's medical care during this visit.
--- NOTE | 2025-07-25 14:21 | XR_ITS ---
Examination: Abdomen sonogram, Limited Date and time of exam: July 25, 2025, 1501 hours INDICATIONS: Cirrhosis of liver nodular in contour on CT abdomen May 08, 2025 Technique: Real-time bourgeois scale transabdominal sonographic images of the upper abdomen obtained. Findings: Absent gallbladder Normal common bile duct 0.2 cm Pancreas obscured by bowel gas Liver 18.2 cm fatty infiltration irregular contour Normal hepatopetal portal venous Patent IVC IMPRESSION: Normal common bile duct Moderate hepatomegaly, cirrhosis, fatty infiltration, no focal liver lesions
[2025-07-25] MEDS: INSULIN DEGLUDEC 5 UNIT/0.05 ML (PER 5 UNITS) 35 UNIT SC (15:07)
[2025-07-25] MEDS: RINGERS LACTATED 500 ML 500 ML 999 ML IV (15:12)
[2025-07-25] MEDS: HYDROmorphone INJ 2 MG/ML VIAL 0.5 MG IVP ×2 (15:49→20:38)
[2025-07-25 15:50] LABS: Basophils # (Auto) 0.0 Thou/mm3 (0.0-0.2); Basophils % (Auto) 1 % (0-2.5); Eosinophils # (Auto) 0.0 Thou/mm3 (0.0-0.5); Eosinophils % (Auto) 1 % (0-10); Hematocrit 26.2 % (36.0-46.0); Immature Granulocytes Auto 0.02 Thou/mm3 (0.00-0.00); Lymphocytes # (Auto) 0.1 Thou/mm3 (1.0-4.8); Lymphocytes % (Auto) 11 % (10-50); Mean Corpuscular HGB Conc 32.4 g/dl (31.0-37.0); Mean Corpuscular Hemoglobin 31.8 pg (25.0-35.0); Mean Corpuscular Volume 98 fL (80-100); Monocytes # (Auto) 0.2 Thou/mm3 (0.0-0.8); Monocytes % (Auto) 12 % (0-12); Neutrophils # (Auto) 0.9 Thou/mm3 (1.8-7.7); Neutrophils % (Auto) 74 % (37-80); Nucleated Red Blood Cell # 0.00 Thou/mm3 (0.00-0.00); Nucleated Red Blood Cell % 0 /100 WBC (0); RDW Standard Deviation 58.2 fL (36.4-46.3); Red Blood Count 2.67 Miln/mm3 (4.00-5.20)
[2025-07-25 15:53] LABS: Hemoglobin 8.5 g/dL (12.0-16.0); Platelet Count 13 Thou/mm3 (140-440); White Blood Count 1.2 Thou/mm3 (3.6-11.0)
[2025-07-25 16:15] LABS: Albumin, Serum 3.1 gm/dL (3.5-5.0); Anion Gap 12 (7-16); BUN/Creatinine Ratio 21 Ratio (12-20); Blood Urea Nitrogen 87 mg/dL (9-23); Calcium 8.0 mg/dL (8.3-10.6); Calcium (Corrected) 8.7 mg/dL (8.5-10.1); Chloride 110 mMol/L (98-107); Creatinine (Component) 4.2 mg/dL (0.6-1.3); Estimated Creatinine Clearance 19.5 mL/min (>60); Glucose 349 mg/dL (74-106); Osmolality,Calculated 314 (275-295); Phosphorous 4.9 mg/dL (2.4-5.1); Salicylate < 3.0 mg/dL; Sodium 137 mMol/L (136-145); eGFR 12 See Note
[2025-07-25 16:25] LABS: Carbon Dioxide 14.8 mMol/L (20.0-31.0); Potassium 6.0 mMol/L (3.4-5.1)
[2025-07-25 16:44] LABS: Slide Review Platelets confirmed
--- NOTE | 2025-07-25 17:19 | EKG_ITS ---
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
[2025-07-25] MEDS: ALBUTEROL RT 2.5 MG/0.5 ML NEBU INH (18:23)
[2025-07-25] MEDS: SODIUM CHLORIDE RT SOL 0.9% 3 ML NEBU INH (18:24)
[2025-07-25] MEDS: RINGERS LACTATED 1000 ML 1,000 ML 70 ML IV (18:32)
[2025-07-25 18:35] LABS: Base Excess -12 (-3-3); HCO3 13 mEq/L (20-26); Inspired Oxygen, FIO2 21 %; O2 Saturation 100 % (91-98); PCO2 27 mmHg (32.0-48.0); PO2 142 mmHg (83-108); pH, Arterial 7.30 (7.35-7.45)
[2025-07-25 18:36] LABS: Allen Test Performed/OK; Puncture Site Left Radial
[2025-07-25] MEDS: CALCIUM GLUCONATE 10% INJ 1 GM/10 ML VIAL IV (18:36)
[2025-07-25] MEDS: INSULIN LISPRO (AdmeLOG) 1 UNIT/0.01 ML UNIT SC ×2 (18:36→20:38)
[2025-07-25] MEDS: INSULIN HUM REGULAR 1 UNIT/0.01 ML (PER UNIT) 5 UNIT IV (18:36)
[2025-07-25] MEDS: CITRIC ACID/SODIUM CITR 15 ML UDC (BICITRA) 30 ML PO ×2 (18:37→20:38)
[2025-07-25] MEDS: ATORVASTATIN CALCIUM 10 MG TABLET PO (20:40)
[2025-07-25 21:08] LABS: Albumin, Serum 3.3 gm/dL (3.5-5.0); Anion Gap 12 (7-16); BUN/Creatinine Ratio 18 Ratio (12-20); Blood Urea Nitrogen 76 mg/dL (9-23); Calcium 8.4 mg/dL (8.3-10.6); Calcium (Corrected) 9.0 mg/dL (8.5-10.1); Carbon Dioxide 15.2 mMol/L (20.0-31.0); Chloride 108 mMol/L (98-107); Creatinine (Component) 4.2 mg/dL (0.6-1.3); Estimated Creatinine Clearance 19.5 mL/min (>60); Osmolality,Calculated 311 (275-295); Phosphorous 5.0 mg/dL (2.4-5.1); Potassium 5.8 mMol/L (3.4-5.1); Sodium 135 mMol/L (136-145); eGFR 12 See Note
[2025-07-25 21:12] LABS: Glucose 443 mg/dL (74-106)
[2025-07-26] VITALS (13 sets, daily range): BP systolic 143–165; BP diastolic 6–73; PULSE 79–100; RESP 11–97; TEMP 36.3–36.8; O2SAT 94–99; BMI 54.6
[2025-07-26] MEDS: ALBUTEROL RT 2.5 MG/3 ML NEBU 10 MG INH (00:07)
[2025-07-26] MEDS: INSULIN LISPRO (AdmeLOG) 1 UNIT/0.01 ML UNIT 10 UNIT SC ×4 (00:11→16:55)
[2025-07-26] MEDS: INSULIN DEGLUDEC 5 UNIT/0.05 ML (PER 5 UNITS) 20 UNIT SC ×2 (00:12→08:35)
[2025-07-26] MEDS: INSULIN HUM REGULAR 1 UNIT/0.01 ML (PER UNIT) 5 UNIT IV ×2 (00:12→10:12)
[2025-07-26] MEDS: SOD POLYSTYRENE SULFON SUSP 15 GM/60 ML BTL 30 GM PO (00:13)
[2025-07-26 01:22] LABS: Anion Gap 12 (7-16); BUN/Creatinine Ratio 18 Ratio (12-20); Blood Urea Nitrogen 79 mg/dL (9-23); Calcium 8.4 mg/dL (8.3-10.6); Carbon Dioxide 15.6 mMol/L (20.0-31.0); Chloride 108 mMol/L (98-107); Creatinine (Component) 4.3 mg/dL (0.6-1.3); Estimated Creatinine Clearance 19.6 mL/min (>60); Osmolality,Calculated 316 (275-295); Potassium 5.7 mMol/L (3.4-5.1); Sodium 136 mMol/L (136-145); eGFR 12 See Note
[2025-07-26 01:24] LABS: Glucose 472 mg/dL (74-106)
[2025-07-26 05:56] LABS: Basophils # (Auto) 0.0 Thou/mm3 (0.0-0.2); Basophils % (Auto) 0 % (0-2.5); Eosinophils # (Auto) 0.0 Thou/mm3 (0.0-0.5); Eosinophils % (Auto) 0 % (0-10); Hematocrit 25.6 % (36.0-46.0); Immature Granulocytes Auto 0.01 Thou/mm3 (0.00-0.00); Lymphocytes # (Auto) 0.1 Thou/mm3 (1.0-4.8); Lymphocytes % (Auto) 12 % (10-50); Mean Corpuscular HGB Conc 33.2 g/dl (31.0-37.0); Mean Corpuscular Hemoglobin 32.0 pg (25.0-35.0); Mean Corpuscular Volume 96 fL (80-100); Monocytes # (Auto) 0.1 Thou/mm3 (0.0-0.8); Monocytes % (Auto) 11 % (0-12); Neutrophils # (Auto) 0.9 Thou/mm3 (1.8-7.7); Neutrophils % (Auto) 77 % (37-80); Nucleated Red Blood Cell # 0.00 Thou/mm3 (0.00-0.00); Nucleated Red Blood Cell % 0 /100 WBC (0); RDW Standard Deviation 57.1 fL (36.4-46.3); Red Blood Count 2.66 Miln/mm3 (4.00-5.20)
[2025-07-26 05:58] LABS: Glucose Estimated Average 128 mg/dL (80-131); Hemoglobin 8.5 g/dL (12.0-16.0); Hemoglobin A1C 6.1 % Hgb (4.8-6.0); Platelet Count 16 Thou/mm3 (140-440); White Blood Count 1.2 Thou/mm3 (3.6-11.0)
[2025-07-26 06:01] LABS: INR 1.5 (0.9-1.3); Partial Thromboplastin Time 32.9 Seconds (22.0-36.0); Prothrombin Time 15.1 Seconds (9.0-12.2)
[2025-07-26 06:16] LABS: Alanine Aminotransferase 18 U/L (10-49); Albumin, Serum 3.3 gm/dL (3.5-5.0); Albumin/Globulin Ratio 1.3 (1.2-2.2); Alkaline Phosphatase 56 U/L (46-116); Anion Gap 12 (7-16); Aspartate Amino Transferase 28 U/L (0-34); BUN/Creatinine Ratio 19 Ratio (12-20); Bilirubin,Total 2.0 mg/dL (0.3-1.2); Blood Urea Nitrogen 83 mg/dL (9-23); Calcium 8.3 mg/dL (8.3-10.6); Calcium (Corrected) 8.9 mg/dL (8.5-10.1); Carbon Dioxide 16.7 mMol/L (20.0-31.0); Cardiac Risk Estimate 13.0 RATIO (3.7-5.6); Chloride 108 mMol/L (98-107); Cholesterol 67 mg/dL (132-200); Creatinine (Component) 4.3 mg/dL (0.6-1.3); Estimated Creatinine Clearance 19.6 mL/min (>60); Globulin 2.5 gm/dL (2.3-3.5); HDL Cholesterol < 5 mg/dL (40-60); LDL Cholesterol,Calculated 22 mg/dL (0-130); Magnesium 2.3 mg/dL (1.6-2.6); Osmolality,Calculated 318 (275-295); Phosphorous 5.3 mg/dL (2.4-5.1); Potassium 5.4 mMol/L (3.4-5.1); Sodium 137 mMol/L (136-145); Thyroid Stimulating Hormone 0.76 uIU/mL (0.55-4.78); Total Protein 5.8 gm/dL (5.7-8.2); Triglycerides 199 mg/dL (30-150); eGFR 12 See Note
[2025-07-26 06:26] LABS: Glucose 465 mg/dL (74-106)
--- NOTE | 2025-07-26 07:00 | XR_ITS ---
Examination: Retroperitoneal ultrasound, complete Technique: Multiple high resolution grayscale images of the retroperitoneum obtained, including kidneys and bladder. Exam date and time: July 26, 2025, 0940 hours INDICATIONS: Acute renal insufficiency on chronic kidney disease on laboratory examination today FINDINGS: Right kidney 9.3 cm renal cortex 2.0 cm Left kidney 10.8 cm renal cortex 1.4 cm No hydronephrosis No bladder mass or bladder calculi Bladder prevoid volume 224 cc unable to void IMPRESSION: Small kidneys with bilateral renal cortical thinning Mild renal scar formation No hydronephrosis
[2025-07-26] MEDS: INSULIN LISPRO (AdmeLOG) 1 UNIT/0.01 ML UNIT 5 UNIT SC (08:27)
[2025-07-26] MEDS: DOCUSATE SOD 100 MG CAPSULE PO (08:34)
[2025-07-26] MEDS: CITRIC ACID/SODIUM CITR 15 ML UDC (BICITRA) 30 ML PO ×2 (08:35→21:11)
[2025-07-26] MEDS: INSULIN DEGLUDEC 5 UNIT/0.05 ML (PER 5 UNITS) 10 UNIT SC (10:12)
[2025-07-26] MEDS: RINGERS LACTATED 1000 ML 1,000 ML 70 ML IV (10:12)
[2025-07-26] MEDS: HYDROmorphone INJ 2 MG/ML VIAL 0.5 MG IVP ×4 (10:13→22:35)
--- NOTE | 2025-07-26 10:27 | PC.SS ---
Patient Sharonda Hopper is a 55 Year old female admitted for Acute Blood loss Anemia. SS met with patient at bedside to discuss discharge plan and verify demographic information. Patient reported she lives at home with family. Patient reports her Son, Derick Dc is her surrogate decision maker, [phone]. Patient reports that prior to admission she was able to ambulate. Patient does have a 3 in 1 commode. Patient is able to complete ADL's. Pharmacy of choice is [facility]. PCP is Flip Ferraro. At time of discharge patient will return back home. Family will provide transportation. Next of kin; Son,Derick Dc Discharge plan: Home
--- NOTE | 2025-07-26 10:37 | ESPR_ITS ---
Documentation for date of: 07/26/25 Overnight patient's degludec schedued changed to 20 units BID and Lispro 5 units scheduled with additional 10 units of Lispro administered. Despite aggressive insulin regimen, patient's hyperglycemia remained elevated. Patient recieved total of 135 units of insulin throught out the day. Degludec now scheduled at 35 units BID. Lispro 10 units TID. Concern for underlying infection, patient shared prior to admission, she experience pain with urination and previous UTIs have caused resistant hyperglycemia. Ceftriaxone added given concern for UTI and urine culture ordered. JULIUS on CKD continues to be concerning, continue gentle hydration and additional bolus given. Veltassa started given potassium slowly increasing. Continue bicitrate. nephrology following. Senior Resident Attestation: I have discussed the case with supervising physician and network internship physician involved in the care of patient. I personally saw and examined patient and discussed the assessment and plan with the entire medical team, including attending. I agree with assessment and plan as documented below. - The patient's plan was discussed with attending Dr. Enid Wiley MD PGY2 Internal Medicine Subjective Subjective Interval history: Patient examined bedside, labs reviewed. Patient is cold in bed, temperature increased from 70 to 74F at her request. She reports still actively bleeding the same amount as on admission. She reports ongoing back pain, denies light headed. She ate most of her food. Says she will call [facility] and her electrocardiograph technician today to figure out a plan for her hysterectomy procedure. Exam Vital Signs Temp Pulse Resp BP Pulse Ox O2 Del Method 97.8 F 85 14 159/6 H 97 Room Air 07/26/25 08:00 07/26/25 08:34 07/26/25 08:00 07/26/25 08:34 07/26/25 08:00 07/26/25 08:00 Narrative Exam GENERAL APPEARANCE: AOx3. NAD, activity normal for age, obese, no cyanosis, pallor, or diaphoresis. HEENT: Normocephalic atraumatic, no facial trauma, neck is supple. Lids/conjunctiva normal. Mucous membranes moist, nares normal, lips/teeth normal uvula midline without oral pharyngeal erythema, exudate or swelling TMs normal bilaterally. No lymphangitis/lymphedema. CARDIAC: Regular rate and rhythm, S1+S2 heard. No murmurs, rubs, or gallops noted RESPIRATORY: respiratory effort normal, speaks in full sentences, no tripod position, no accessory muscle use. Lungs clear to auscultation without rhonchi, wheezes, rales ABDOMINAL: NBS. Soft, ND/NT. No evidence of fluid wave. No pulsatile masses on exam, rebound tenderness, Kwok sign or pain over Mcburney's point. MUSCLES/EXTREMITIES: No abnormal range of motion, no swelling. DERM: Warm, pink and dry. No rashes, dermatoses, petechiae or lesions. NEUROLOGICAL: Speech is clear and appropriate. Normal level of consciousness. Gait and coordination are normal. 5/5 strength in all extremities. PSYCH: Normal mood and affect. Judgement/competence is appropriate : Patient declined exam, stating 2 other people had already examined Objective Labs 07/27/25 04:27 07/27/25 04:27 Labs: Laboratory Results - last 24 hr 07/25/25 07/25/25 07/25/25 01:44 15:28 18:30 WBC 1.2 L* RBC 2.67 L Hgb 8.5 L Hct 26.2 L MCV 98 MCH 31.8 MCHC 32.4 RDW Std Deviation 58.2 H Plt Count 13 L* D Neut % (Auto) 74 Lymph % (Auto) 11 [place] % (Auto) 12 Eos % (Auto) 1 Baso % (Auto) 1 Neut # (Auto) 0.9 L Lymph # (Auto) 0.1 L [place] # (Auto) 0.2 Eos # (Auto) 0.0 Baso # (Auto) 0.0 Immature Gran # (Auto) 0.02 H Absolute Nucleated RBC 0.00 Immature Gran % 2 H Nucleated RBC % 0 PT INR APTT Puncture Site Left Radial ABG pH 7.30 L ABG pCO2 27 L ABG pO2 142 H D ABG HCO3 13 L ABG O2 Saturation 100 H ABG Base Excess -12 L FiO2 21 Sodium 137 Potassium 6.0 H D Chloride 110 H Carbon Dioxide 14.8 L* Anion Gap 12 BUN 87 H Creatinine 4.2 H* Estim Creat Clear Calc 19.5 L eGFR 12 L* BUN/Creatinine Ratio 21 H Glucose [address] Glu mg/dL Hemoglobin A1c Calculated Osmolality 314 H Calcium 8.0 L Corrected Calcium 8.7 Phosphorus 4.9 Magnesium Total Bilirubin AST ALT Alkaline Phosphatase Total Protein Albumin 3.1 L Globulin Albumin/Globulin Ratio Triglycerides Cholesterol LDL Cholesterol, Calc HDL Cholesterol Cholesterol/HDL Ratio TSH Salicylates < 3.0 Misc Test Result Platelets confirmed Crossmatch See Detail 07/25/25 07/26/25 07/26/25 20:30 00:32 04:35 WBC 1.2 L* RBC 2.66 L Hgb 8.5 L Hct 25.6 L MCV 96 MCH 32.0 MCHC 33.2 RDW Std Deviation 57.1 H Plt Count 16 L* D Neut % (Auto) 77 Lymph % (Auto) 12 [place] % (Auto) 11 Eos % (Auto) 0 Baso % (Auto) 0 Neut # (Auto) 0.9 L Lymph # (Auto) 0.1 L [place] # (Auto) 0.1 Eos # (Auto) 0.0 Baso # (Auto) 0.0 Immature Gran # (Auto) 0.01 H Absolute Nucleated RBC 0.00 Immature Gran % 1 H Nucleated RBC % 0 PT 15.1 H INR 1.5 H APTT 32.9 Puncture Site ABG pH ABG pCO2 ABG pO2 ABG HCO3 ABG O2 Saturation ABG Base Excess FiO2 Sodium 135 L 136 137 Potassium 5.8 H 5.7 H 5.4 H Chloride 108 H 108 H 108 H Carbon Dioxide 15.2 L 15.6 L 16.7 L Anion Gap 12 12 12 BUN 76 H 79 H 83 H Creatinine 4.2 H* 4.3 H* 4.3 H* Estim Creat Clear Calc 19.5 L 19.6 L 19.6 L eGFR 12 L* 12 L* 12 L* BUN/Creatinine Ratio 18 18 19 Glucose 443 H* D 472 H* 465 H* Estimated Ave Glu mg/dL 128 Hemoglobin A1c 6.1 H Calculated Osmolality 311 H 316 H 318 H Calcium 8.4 8.4 8.3 Corrected Calcium 9.0 8.9 Phosphorus 5.0 5.3 H Magnesium 2.3 Total Bilirubin 2.0 H D AST 28 ALT 18 Alkaline Phosphatase 56 Total Protein 5.8 Albumin 3.3 L 3.3 L Globulin 2.5 Albumin/Globulin Ratio 1.3 Triglycerides 199 H Cholesterol 67 L LDL Cholesterol, Calc 22 HDL Cholesterol < 5 L Cholesterol/HDL Ratio 13.0 H TSH 0.76 Salicylates Misc Test Result Crossmatch ABG Interpretation ABG results: 07/25/25 07/25/25 07:28 18:30 ABG pH 7.28 L 7.30 L ABG pCO2 33 27 L ABG pO2 69 L 142 H D ABG HCO3 16 L 13 L ABG O2 Saturation 94 100 H ABG Base Excess -10 L -12 L Quality Measures Quality Measures none Assessment & Plan Assessment Current Active Medications: Generic Name Dose Route Start Last Admin Trade Name Freq PRN Reason Stop Dose Admin Acetaminophen 650 mg 07/25/25 09:42 Acetaminophen 325 Mg Tablet PO 08/24/25 09:41 Q6H PRN Fever >100.4 or pain 1-3 Amlodipine Besylate 5 mg 07/25/25 17:20 07/26/25 08:34 Amlodipine Besylate 5 Mg Tablet PO 08/24/25 17:19 5 mg QDAY SHERYL Administration Atorvastatin Calcium 10 mg 07/25/25 21:00 07/25/25 20:40 Atorvastatin Calcium 10 Mg Tablet PO 08/24/25 20:59 10 mg HS SHERYL Administration Citric Acid/Sodium Citrate 30 ml 07/25/25 17:31 07/26/25 08:35 Citric Acid/Sodium Citr 15 Ml Udc (Bicitra) PO 08/24/25 17:30 30 ml BID SHERYL Administration Dextrose 25 ml 07/25/25 23:12 Dextrose 50%-Water Inj 50 Ml Syringe IV 08/24/25 23:11 Q15MIN PRN BG 50-70 responsive npo pt Dextrose 50 ml 07/25/25 23:12 Dextrose 50%-Water Inj 50 Ml Syringe IV 08/24/25 23:11 Q15MIN PRN BG <50 OR BG <70 & pt unresponsive Docusate Sodium 100 mg 07/25/25 09:45 07/26/25 08:34 Docusate Sod 100 Mg Capsule PO 08/24/25 09:44 100 mg QDAY SHERYL Administration Protocol Glucagon 1 mg 07/25/25 23:12 Glucagon Inj 1 Mg Vial IM Q15MIN PRN BG <70, and no IV access Hydromorphone HCl 0.5 mg 07/25/25 14:11 07/26/25 10:13 Hydromorphone Inj 2 Mg/Ml Vial IVP 07/30/25 13:58 0.5 mg Q4HR PRN Administration PAIN SCALE 4-10(Mod-Sev Lactated Ringer's 1,000 mls @ 70 mls/hr 07/26/25 09:05 07/26/25 10:12 Lactated Ringers IV 07/26/25 23:22 70 mls/hr .[id number] ONE Administration Insulin Degludec 30 unit 07/26/25 21:00 Insulin Degludec 5 Unit/0.05 Ml (Per 5 Units) SC 08/25/25 20:59 BID [facility] Insulin Human Lispro 0 unit 07/26/25 08:09 Insulin Lispro (Admelog) 1 Unit/0.01 Ml Unit SC 08/24/25 16:59 ACHS [facility] Protocol Insulin Human Lispro 10 unit 07/26/25 12:00 Insulin Lispro (Admelog) 1 Unit/0.01 Ml Unit SC 08/25/25 11:59 TIDWM [facility] Labetalol HCl 10 mg 07/25/25 17:14 Labetalol Inj 5 Mg/Ml Vial 20 Ml IVP 08/24/25 17:13 Q4HR PRN SBP > 180 Lidocaine 1 patch 07/26/25 10:33 Lidocaine 5% 1 Patch TOP 08/25/25 10:32 UD PRN PAIN, TOPICAL PAIN Ondansetron HCl 4 mg 07/25/25 09:42 Ondansetron Inj 2 Mg/Ml Inj 2 Ml IVP 08/24/25 09:41 Q6H PRN NAUSEA OR VOMITING Protocol Pantoprazole Sodium 40 mg 07/25/25 09:45 07/26/25 08:34 Pantoprazole Inj 40 Mg Vial IVP 08/24/25 09:44 40 mg QDAY SHERYL Administration Patiromer 8.4 gm 07/26/25 09:30 Patiromer Calcium 8.4 Gm Packet PO 08/25/25 09:29 QDAY [facility] Pharmacy Consult 1 each 07/25/25 17:56 Pharmacy Renal Dose Adjustment 1 Ea XX 08/24/25 17:55 PRN PRN CONSULT Plan 54 year old female with PMHx of Hypertension, primary biliary cirrhosis, CKD stage IV, insulin-dependent type 2 diabetes, HFpEF (LVEF 55 to 60%) who presented to the ED due to fever, shortness of breath and noncardiac chest pain for the past 3-4 days as well as profuse vaginal bleeding with clots going for about 3 weeks. Nephro, Dr. Neil, was consulted and he says continue with gentle hydration. #Acute blood loss anemia likely 2/2 vaginal bleed #Acute Normocytic Anemia Patient reports other instances of similar presentation, and is well aware of pathophysiology of her bleeding. States that the hysteroscopies are a bandage to her problem and she wants her uterus removed, but no one will do a hysterectomy because she has low platelets. OB, Dr. Whitaker, was consulted and recommends transfusion and referral back up to [facility] gynecology in [facility], and that she is not bleeding heavily enough to warrant an abdominal hysterectomy in [facility]. PT: 16.2 INR 1.6 Plan: -1 unit pRBC in ED repeat CBC: HGB 8.5 -1 unit platelets in ED plt: 13 (24) -CTM in AM -Transfuse if Hb >7 w/ post transfusion H+H protocol #JULIUS on CKD #AG Metabolic Acidosis, improving #Hyperuremia #Hyperkalemia ABG pH 7.3 pCO2 27L O2 142 HCO3 13, Creatinine: 4.2 BUN 87, metabolic acidosis most likely due to hyperuremia. Betahydroxybutyrate normal therefore less likely DKA. Metabolic acidosis was treated with Bicitrate 30mL. Potassium of 6 gave insulin 5 units IV, calcium gluconate 1g. Nephro, Dr. Neil, was consulted and recommends gentle hydration. Plan: -CTM renal panel -Bicitrate for metabolic acidosis -Veltassa -Hyperkalemia cocktail insulin, IV calcium gluconate, and albuterol as needed - IVF -Renal US: Small kidneys with bilateral renal cortical thinning. Mild renal scar formation. No hydronephrosis - Nephrology following closely, appreciate recommendations #Hyperglycemia,uncontrolled. #Hx of DM2 on Insulin Glucose 349, at home uses lantus 35 units AM + PM, and aspartate on a sliding scale, unclear cause of hyperglycemia as patient's A1c is 6.0. Concern for infectious etiology as source of hyperglycemia. Plan: - Changed insulin degludec to 35 units twice daily, continues to be on lispro 10 3 times daily -SSI step 3 -ACHS glucose checks, hypoglycemia protocol in place #UTI Subjective fever and urinary urgency. UA WBC 38n leukocyte esterase positive bacteria +3 Plan: -Ceftriaxone 1 g IV QD #Hyperbilirubinemia T. Bili: 2.5, no abdominal tenderness on exam. Abd US showed normal common bile duct, moderate hepatomegaly, cirrhosis, fatty infiltration, no focal liver lesions. Most likely due to dehydration and history of ROSE vs gallstone, but less likely given cholestectomy in past medical history vs primary biliary cholangitis. Plan: -FUP Indirect direct -Follow up with R upper quadrant US: Normal common bile duct. Moderate hepatomegaly, cirrhosis, fatty infiltration, no focal liver lesions #Hx of Cirrhosis due to ROSE #History of Primary Biliary Cirrhosis, per chart review. 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 Plan: -Transfuse if Hb >7 w/ post transfusion H+H protocol #Hx of HFpEF 55-60% grade I diastolic disfunction No signs of volume overload. No murmurs heard on exam. No chest pain. Plan: -CTM #Hx of HTN Patient has a past medical history of hypertension with home medication of Losartan 25 mg qday. Currently holding Losartan given JULIUS on CKD. Plan: -Labtetalol 10 mg IVP Q4HR PRN -HOLD home Losartan -Amlodipine 5 mg PO QD #History of Gout Past medical history of gout, currenlty holding Colchicine given JULIUS on CKD. PLan -Hold Colchicine. #Hx of chronic back pain Plan: -Dilaudid 0.5 mg ICP Q4HR PRN Health Maintenance: Code status: Full DVT prophylaxis: SCDs GI prophylaxis: Zofran Diet: Carb consistent [place]: None Lines: PIV Supplemental O2: NC Disposition: Tele Patient seen and reviewed with attending Dr. Rossi and supervising resident Dr. Wiley. Note written by Negro Stock MD PGY-1 Attending Provider Attestation/Addendum I have seen and examined the patient. I was physically present for the blank portions of the services provided including history, physical exam, diagnosis, treatment plans and orders. I agree with assessment and plan of care as documented by residents. Patient seen and examined at bedside this morning. Appears comfortable and denies any new complaints. Hemoglobin and platelet levels this morning are stable. Patient continues to have vaginal bleeding, we will continue to monitor closely. BUN/creatinine remain high, 87/4.2 today, also has anion gap metabolic acidosis, in setting of JULIUS, cirrhosis, we will monitor closely. Adjustments made on insulin regimen due to hyperglycemia. Nephrology following closely, appreciate recommendations. [employer] following closely, patient will likely need to follow-up with her [employer] outpatient and tertiary center for definitive management of vaginal bleeding in setting of liver disease. We will try to reach out to patient's [employer] CL[employer] SPECIALIST at [facility] for recommendations. Even though this this note was carefully revised there may still be minor errors in tire layer due to voice recognition software. Trinidad Rossi MD
[2025-07-26] MEDS: PATIROMER CALCIUM 8.4 GM PACKET PO (11:14)
[2025-07-26 11:49] LABS: Slide Review Platelets confirmed
[2025-07-26] MEDS: INSULIN LISPRO (AdmeLOG) 1 UNIT/0.01 ML UNIT SC ×3 (11:51→21:08)
[2025-07-26 14:26] LABS: Albumin, Serum 3.0 gm/dL (3.5-5.0); Anion Gap 12 (7-16); BUN/Creatinine Ratio 20 Ratio (12-20); Blood Urea Nitrogen 85 mg/dL (9-23); Calcium 8.2 mg/dL (8.3-10.6); Calcium (Corrected) 9.0 mg/dL (8.5-10.1); Carbon Dioxide 17.8 mMol/L (20.0-31.0); Chloride 107 mMol/L (98-107); Creatinine (Component) 4.2 mg/dL (0.6-1.3); Estimated Creatinine Clearance 20.1 mL/min (>60); Osmolality,Calculated 320 (275-295); Phosphorous 5.1 mg/dL (2.4-5.1); Potassium 5.0 mMol/L (3.4-5.1); Sodium 137 mMol/L (136-145); eGFR 12 See Note
[2025-07-26 14:29] LABS: Glucose 471 mg/dL (74-106)
[2025-07-26] MEDS: INSULIN HUM REGULAR 1 UNIT/0.01 ML (PER UNIT) 10 UNIT IV ×2 (17:02→18:27)
[2025-07-26] MEDS: RINGERS LACTATED 1000 ML 1,000 ML 999 ML IV (17:02)
[2025-07-26] MEDS: cefTRIAXone/D5w 1gm IV premix 1 GM/50 ML BAG IV (18:01)
[2025-07-26 18:58] LABS: Base Excess, Venous -7 (-3-3); O2 Saturation, Venous 60 % (96-97); PCO2, Venous 40 mmHg (36-56); PO2, Venous 33 mmHg (15-58); pH, Venous 7.28 (7.33-7.66)
[2025-07-26 19:02] LABS: Beta Hydroxybutyrate 0.2 mmol/L (<0.6)
[2025-07-26 19:49] LABS: C-Reactive Protein 12.4 mg/dL (0.0-0.9)
[2025-07-26 20:44] LABS: Chloride,Urine Random < 20.0 mMol/L (55.0-125.0); Creatinine,Random Urine 125 mg/dL (30-125); Potassium,Urine Random 24 mMol/L (12-62); Sodium,Urine Random < 15.0 mMol/L (20.0-110.0)
[2025-07-26] MEDS: INSULIN DEGLUDEC 5 UNIT/0.05 ML (PER 5 UNITS) 35 UNIT SC (21:09)
[2025-07-26] MEDS: ATORVASTATIN CALCIUM 10 MG TABLET PO (21:11)
[2025-07-26] MEDS: GABAPENTIN 100 MG CAPSULE 400 MG PO (21:11)
[2025-07-27] VITALS (10 sets, daily range): BP systolic 146–166; BP diastolic 57–75; PULSE 79–100; RESP 12–98; TEMP 36.2–36.9; O2SAT 95–98
[2025-07-27 05:23] LABS: Basophils # (Auto) 0.0 Thou/mm3 (0.0-0.2); Basophils % (Auto) 0 % (0-2.5); Eosinophils # (Auto) 0.0 Thou/mm3 (0.0-0.5); Eosinophils % (Auto) 0 % (0-10); Hematocrit 24.0 % (36.0-46.0); Immature Granulocytes Auto 0.02 Thou/mm3 (0.00-0.00); Lymphocytes # (Auto) 0.1 Thou/mm3 (1.0-4.8); Lymphocytes % (Auto) 8 % (10-50); Mean Corpuscular HGB Conc 33.8 g/dl (31.0-37.0); Mean Corpuscular Hemoglobin 32.1 pg (25.0-35.0); Mean Corpuscular Volume 95 fL (80-100); Monocytes # (Auto) 0.2 Thou/mm3 (0.0-0.8); Monocytes % (Auto) 12 % (0-12); Neutrophils # (Auto) 1.4 Thou/mm3 (1.8-7.7); Neutrophils % (Auto) 79 % (37-80); Nucleated Red Blood Cell # 0.00 Thou/mm3 (0.00-0.00); Nucleated Red Blood Cell % 0 /100 WBC (0); RDW Standard Deviation 53.8 fL (36.4-46.3); Red Blood Count 2.52 Miln/mm3 (4.00-5.20); White Blood Count 1.7 Thou/mm3 (3.6-11.0)
[2025-07-27 05:25] LABS: Hemoglobin 8.1 g/dL (12.0-16.0); Platelet Count 24 Thou/mm3 (140-440)
[2025-07-27] MEDS: HYDROmorphone INJ 2 MG/ML VIAL 0.5 MG IVP ×4 (05:33→22:44)
[2025-07-27 05:41] LABS: INR 1.3 (0.9-1.3); Prothrombin Time 14.0 Seconds (9.0-12.2)
[2025-07-27 05:58] LABS: Alanine Aminotransferase 18 U/L (10-49); Albumin, Serum 3.1 gm/dL (3.5-5.0); Albumin/Globulin Ratio 1.2 (1.2-2.2); Alkaline Phosphatase 57 U/L (46-116); Anion Gap 11 (7-16); Aspartate Amino Transferase 24 U/L (0-34); BUN/Creatinine Ratio 21 Ratio (12-20); Bilirubin,Direct 0.7 mg/dL (0.0-0.3); Bilirubin,Indirect 0.6 mg/dL (0.0-1.1); Bilirubin,Total 1.3 mg/dL (0.3-1.2); Blood Urea Nitrogen 80 mg/dL (9-23); Calcium 8.5 mg/dL (8.3-10.6); Calcium (Corrected) 9.2 mg/dL (8.5-10.1); Carbon Dioxide 17.8 mMol/L (20.0-31.0); Chloride 110 mMol/L (98-107); Creatinine (Component) 3.8 mg/dL (0.6-1.3); Estimated Creatinine Clearance 22.2 mL/min (>60); Globulin 2.5 gm/dL (2.3-3.5); Glucose 259 mg/dL (74-106); Magnesium 2.3 mg/dL (1.6-2.6); Osmolality,Calculated 310 (275-295); Phosphorous 4.9 mg/dL (2.4-5.1); Potassium 5.0 mMol/L (3.4-5.1); Sodium 139 mMol/L (136-145); Total Protein 5.6 gm/dL (5.7-8.2); eGFR 13 See Note
[2025-07-27 06:33] LABS: Slide Review Platelets confirmed
--- NOTE | 2025-07-27 07:00 | PD.NEPHCONS ---
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 Nephrology is consulted for JULIUS on CKD. Pt has advanced CKD. cc:: cc: Trinidad Rossi MD Review of Systems Review of Systems Systems Reviewed: All systems reviewed, normal except as documented Meds Home Medications and Allergies Home Medications ?Medication ?Instructions ?Recorded ?Confirmed ?Type insulin glargine 100 unit/mL (3 35 unit subcut BID 09/30/18 07/25/25 History mL) subcutaneous pen (Basaglar KwikPen U-100 Insulin) ursodiol 300 mg capsule 300 mg PO TID 09/30/18 07/25/25 History ascorbic acid (vitamin C) 1,000 mg 1,000 mg PO DAILY 10/27/23 07/25/25 History tablet (Vitamin C) atorvastatin 10 mg tablet 10 mg PO HS 10/27/23 07/25/25 History cholecalciferol (vitamin D3) 25 25 mcg PO QDAY 10/27/23 07/25/25 History mcg (1,000 unit) tablet (Vitamin D3) gabapentin 400 mg capsule 400 mg PO BID 10/27/23 07/25/25 History propranolol 10 mg tablet 10 mg PO BID 10/27/23 07/25/25 History medroxyprogesterone 10 mg tablet 10 mg PO 3XD 01/05/25 07/25/25 History semaglutide 0.25 mg or 0.5 mg (2 0.5 mg subcut .abdullahi week 01/05/25 07/25/25 History mg/3 mL) subcutaneous pen injector (Ozempic) zinc sulfate 50 mg zinc (220 mg) 50 mg PO QDAY 01/05/25 07/25/25 History capsule hydrocodone 10 mg-acetaminophen 1 tab PO Q12H PRN pain 05/08/25 07/25/25 History 325 mg tablet medroxyprogesterone 5 mg tablet 5 mg PO DAILY 05/08/25 07/25/25 History Allergies Allergy/AdvReac Type Severity Reaction Status Date / Time tramadol Allergy Severe Hives Verified 07/24/25 20:43 ciprofloxacin Allergy Mild Rash Verified 07/24/25 20:43 Iodinated Contrast Media Allergy Verified 07/24/25 20:43 Exam Vital Signs Temp Pulse Resp BP Pulse Ox O2 Del Method 97.2 F 80 12 166/75 H 98 Room Air 07/27/25 04:00 07/27/25 04:00 07/27/25 04:00 07/27/25 04:00 07/27/25 04:00 07/26/25 19:52 Narrative Exam GENERAL APPEARANCE: AOx3. HEENT: Normocephalic atraumatic, no facial trauma, neck is supple CARDIAC: Regular rate and rhythm, S1+S2 heard. No murmurs, rubs, or gallops noted RESPIRATORY: respiratory effort normal, speaks in full sentences, ABDOMINAL: soft MUSCLES/EXTREMITIES: No abnormal range of motion, no swelling. DERM: Warm, pink and dry. No rashes, dermatoses, petechiae or lesions. NEUROLOGICAL: Speech is clear and appropriate. PSYCH: Normal mood and affect. Judgement/competence is appropriate Results Labs 07/28/25 05:25 07/28/25 05:25 Labs: Short CBC 07/27/25 Range/Units 04:27 WBC 1.7 L D (3.6-11.0) Thou/mm3 Hgb 8.1 L (12.0-16.0) g/dL Hct 24.0 L (36.0-46.0) % Plt Count 24 L* D (140-440) Thou/mm3 BMP 07/26/25 07/27/25 13:35 04:27 Sodium 137 139 Potassium 5.0 5.0 Chloride 107 110 H Carbon Dioxide 17.8 L 17.8 L BUN 85 H 80 H Creatinine 4.2 H* 3.8 H Glucose 471 H* 259 H D Calcium 8.2 L 8.5 Liver Function 07/26/25 07/27/25 Range/Units 13:35 04:27 Total Bilirubin 1.3 H D (0.3-1.2) mg/dL Direct Bilirubin 0.7 H (0.0-0.3) mg/dL AST 24 (0-34) U/L ALT 18 (10-49) U/L Alkaline Phosphatase 57 (46-116) U/L Albumin 3.0 L 3.1 L (3.5-5.0) gm/dL ABG Interpretation ABG results: 07/25/25 07/25/25 07/26/25 07:28 18:30 18:32 ABG pH 7.28 L 7.30 L ABG pCO2 33 27 L ABG pO2 69 L 142 H D ABG HCO3 16 L 13 L ABG O2 Saturation 94 100 H ABG Base Excess -10 L -12 L VBG pH 7.28 L VBG pCO2 40 VBG pO2 33 VBG Base Excess -7 L Assessment & Plan Assessment and plan (1) Acute on chronic anemia: Status: Acute Assessment and plan: JULIUS on CKD Pt has advanced kidney disease creat started trending down c/w creat trending hope kidney function will keep improving, if not then may need dialysis (2) CKD (chronic kidney disease): Status: Acute Assessment and plan: JULIUS on CKD creat started trending down hope kidney function will keep improving but if kidney function dont improve or worsen then may need dialysis (3) Thrombocytopenia: Status: Acute (4) Neutropenia: Status: Acute (5) Cirrhosis: Status: Acute (6) Vaginal bleeding: Status: Acute (7) Diabetes mellitus: Status: Acute (2) CKD (chronic kidney disease) Qualifiers: Chronic kidney disease stage: unspecified stage Qualified Code(s): N18.9 - Chronic kidney disease, unspecified (4) Neutropenia Qualifiers: Neutropenia type: unspecified Qualified Code(s): D70.9 - Neutropenia, unspecified (5) Cirrhosis Qualifiers: Hepatic cirrhosis type: 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
[2025-07-27] MEDS: INSULIN LISPRO (AdmeLOG) 1 UNIT/0.01 ML UNIT SC ×4 (09:24→21:09)
[2025-07-27] MEDS: INSULIN DEGLUDEC 5 UNIT/0.05 ML (PER 5 UNITS) 35 UNIT SC ×2 (09:34→21:08)
[2025-07-27] MEDS: RINGERS LACTATED 500 ML 500 ML 999 ML IV (09:36)
[2025-07-27] MEDS: GABAPENTIN 100 MG CAPSULE 400 MG PO ×2 (09:37→21:07)
[2025-07-27] MEDS: cefTRIAXone/D5w 1gm IV premix 1 GM/50 ML BAG IV (09:38)
[2025-07-27] MEDS: CITRIC ACID/SODIUM CITR 15 ML UDC (BICITRA) 30 ML PO ×2 (09:40→21:08)
[2025-07-27] MEDS: DOCUSATE SOD 100 MG CAPSULE PO (09:41)
[2025-07-27] MEDS: PATIROMER CALCIUM 8.4 GM PACKET PO (09:45)
[2025-07-27] MEDS: INSULIN LISPRO (AdmeLOG) 1 UNIT/0.01 ML UNIT 20 UNIT SC ×2 (11:32→17:29)
[2025-07-27] MEDS: DiphenhydrAMINE ELIX 25 MG/10 ML UDC 12.5 MG PO (11:41)
--- NOTE | 2025-07-27 12:17 | PC.SS ---
Update: Blood Sugars being monitored. Patient will discharge home when medically cleared.
--- NOTE | 2025-07-27 14:07 | PD.RESPRO ---
Documentation for date of: 07/27/25 --------- Senior Resident Attestation: I have discussed the case with supervising physician and leadership program intern physician involved in the care of patient. I personally saw and examined patient and discussed the assessment and plan with the entire medical team, including attending. I agree with assessment and plan as documented below. - The patient's plan was discussed with attending Dr. Enid Wiley MD PGY2 Internal Medicine Subjective Subjective Interval history: Insulin adjusted 35 degluded BID Lispro 23 units ACHS, glucose coming under control 400-235. Dr. Joceline Thornton is [facility] [place] , Dr. Whitaker spoke with operations scheduler, planning for call tomorrow at 1:45, son will be present. Nephro Dr. Neil, if kidney function does not improve, she will need dialysis. Patient examined bedside, labs reviewed. Bleeding less today, no clots. Reports feeling itchy today, believes benadryl will help at night and clariitn in the day. Does not feel cold or tremulous today, and the room temperature is decreased from yesterday. States she had a recent breast abscess expressed by her doctor and she has an appointment to follow up for a biopsy. Plan to DC tomorrow Exam Vital Signs Temp Pulse Resp BP Pulse Ox O2 Del Method 98.1 F 85 17 159/66 H 95 Room Air 07/27/25 12:00 07/27/25 12:00 07/27/25 12:00 07/27/25 12:00 07/27/25 12:00 07/27/25 12:00 Narrative Exam GENERAL APPEARANCE: AOx3. NAD, activity normal for age, obese, no cyanosis, pallor, or diaphoresis. HEENT: Normocephalic atraumatic, no facial trauma, neck is supple. Lids/conjunctiva normal. Mucous membranes moist, nares normal, lips/teeth normal uvula midline without oral pharyngeal erythema, exudate or swelling TMs normal bilaterally. No lymphangitis/lymphedema. CARDIAC: Regular rate and rhythm, S1+S2 heard. No murmurs, rubs, or gallops noted RESPIRATORY: respiratory effort normal, speaks in full sentences, no tripod position, no accessory muscle use. Lungs clear to auscultation without rhonchi, wheezes, rales ABDOMINAL: NBS. Soft, ND/NT. No evidence of fluid wave. No pulsatile masses on exam, rebound tenderness, Kwok sign or pain over Mcburney's point. MUSCLES/EXTREMITIES: No abnormal range of motion, no swelling. DERM: Warm, pink and dry. No rashes, dermatoses, petechiae or lesions. NEUROLOGICAL: Speech is clear and appropriate. Normal level of consciousness. Gait and coordination are normal. 5/5 strength in all extremities. PSYCH: Normal mood and affect. Judgement/competence is appropriate Breast: R breast bruising from former abscess expression a week or two ago, no erythema, induration noted, no pustulent materal expressed, clean, dry, intact, no open wound. Healing appropriately. : Patient declined exam Objective Labs 07/28/25 05:25 07/28/25 05:25 Labs: Laboratory Results - last 24 hr 07/26/25 07/26/25 07/26/25 13:35 18:32 19:21 WBC RBC Hgb Hct MCV MCH MCHC RDW Std Deviation Plt Count Neut % (Auto) Lymph % (Auto) [place] % (Auto) Eos % (Auto) Baso % (Auto) Neut # (Auto) Lymph # (Auto) [place] # (Auto) Eos # (Auto) Baso # (Auto) Immature Gran # (Auto) Absolute Nucleated RBC Immature Gran % Nucleated RBC % PT INR VBG pH 7.28 L VBG pCO2 40 VBG pO2 33 VBG O2 Sat (Sergio) 60 L VBG Base Excess -7 L Sodium 137 Potassium 5.0 Chloride 107 Carbon Dioxide 17.8 L Anion Gap 12 BUN 85 H Creatinine 4.2 H* Estim Creat Clear Calc 20.1 L eGFR 12 L* BUN/Creatinine Ratio 20 Glucose 471 H* Calculated Osmolality 320 H Calcium 8.2 L Corrected Calcium 9.0 Phosphorus 5.1 Magnesium Total Bilirubin Direct Bilirubin Indirect Bilirubin AST ALT Alkaline Phosphatase C-Reactive Prot, Quant 12.4 H Total Protein Albumin 3.0 L Globulin Albumin/Globulin Ratio Beta-Hydroxybutyrate/Acetoacetate 0.2 Ur Random Creatinine 125 Ur Random Sodium < 15.0 L Ur Random Potassium 24 Ur Random Chloride < 20.0 L Misc Test Result 07/27/25 04:27 WBC 1.7 L D RBC 2.52 L Hgb 8.1 L Hct 24.0 L MCV 95 MCH 32.1 MCHC 33.8 RDW Std Deviation 53.8 H Plt Count 24 L* D Neut % (Auto) 79 Lymph % (Auto) 8 L [place] % (Auto) 12 Eos % (Auto) 0 Baso % (Auto) 0 Neut # (Auto) 1.4 L Lymph # (Auto) 0.1 L [place] # (Auto) 0.2 Eos # (Auto) 0.0 Baso # (Auto) 0.0 Immature Gran # (Auto) 0.02 H Absolute Nucleated RBC 0.00 Immature Gran % 1 H Nucleated RBC % 0 PT 14.0 H INR 1.3 VBG pH VBG pCO2 VBG pO2 VBG O2 Sat (Sergio) VBG Base Excess Sodium 139 Potassium 5.0 Chloride 110 H Carbon Dioxide 17.8 L Anion Gap 11 BUN 80 H Creatinine 3.8 H Estim Creat Clear Calc 22.2 L eGFR 13 L* BUN/Creatinine Ratio 21 H Glucose 259 H D Calculated Osmolality 310 H Calcium 8.5 Corrected Calcium 9.2 Phosphorus 4.9 Magnesium 2.3 Total Bilirubin 1.3 H D Direct Bilirubin 0.7 H Indirect Bilirubin 0.6 AST 24 ALT 18 Alkaline Phosphatase 57 C-Reactive Prot, Quant Total Protein 5.6 L Albumin 3.1 L Globulin 2.5 Albumin/Globulin Ratio 1.2 Beta-Hydroxybutyrate/Acetoacetate Ur Random Creatinine Ur Random Sodium Ur Random Potassium Ur Random Chloride Misc Test Result Platelets confirmed ABG Interpretation ABG results: 07/25/25 07/25/25 07/26/25 07:28 18:30 18:32 ABG pH 7.28 L 7.30 L ABG pCO2 33 27 L ABG pO2 69 L 142 H D ABG HCO3 16 L 13 L ABG O2 Saturation 94 100 H ABG Base Excess -10 L -12 L VBG pH 7.28 L VBG pCO2 40 VBG pO2 33 VBG Base Excess -7 L Quality Measures Quality Measures none Assessment & Plan Assessment Current Active Medications: Generic Name Dose Route Start Last Admin Trade Name Freq PRN Reason Stop Dose Admin Acetaminophen 650 mg 07/25/25 09:42 Acetaminophen 325 Mg Tablet PO 08/24/25 09:41 Q6H PRN Fever >100.4 or pain 1-3 Amlodipine Besylate 10 mg 07/27/25 09:00 07/27/25 09:37 Amlodipine Besylate 5 Mg Tablet PO 08/26/25 08:59 10 mg QDAY SHERYL Administration Atorvastatin Calcium 10 mg 07/25/25 21:00 07/26/25 21:11 Atorvastatin Calcium 10 Mg Tablet PO 08/24/25 20:59 10 mg HS SHERYL Administration Citric Acid/Sodium Citrate 30 ml 07/25/25 17:31 07/27/25 09:40 Citric Acid/Sodium Citr 15 Ml Udc (Bicitra) PO 08/24/25 17:30 30 ml BID SHERYL Administration Dextrose 25 ml 07/25/25 23:12 Dextrose 50%-Water Inj 50 Ml Syringe IV 08/24/25 23:11 Q15MIN PRN BG 50-70 responsive npo pt Dextrose 50 ml 07/25/25 23:12 Dextrose 50%-Water Inj 50 Ml Syringe IV 08/24/25 23:11 Q15MIN PRN BG <50 OR BG <70 & pt unresponsive Diphenhydramine HCl 25 mg 07/27/25 21:00 Diphenhydramine Elix 25 Mg/10 Ml Udc PO 08/26/25 20:59 QPM SHERYL Docusate Sodium 100 mg 07/25/25 09:45 07/27/25 09:41 Docusate Sod 100 Mg Capsule PO 08/24/25 09:44 100 mg QDAY SHERYL Administration Protocol Gabapentin 400 mg 07/26/25 21:00 07/27/25 09:37 Gabapentin 100 Mg Capsule PO 08/25/25 20:59 400 mg BID SHERYL Administration Glucagon 1 mg 07/25/25 23:12 Glucagon Inj 1 Mg Vial IM Q15MIN PRN BG <70, and no IV access Hydromorphone HCl 0.5 mg 07/25/25 14:11 07/27/25 09:39 Hydromorphone Inj 2 Mg/Ml Vial IVP 07/30/25 13:58 0.5 mg Q4HR PRN Administration PAIN SCALE 4-10(Mod-Sev Ceftriaxone Sodium/Dextrose 1 gm in 50 mls @ 100 mls/hr 07/26/25 17:28 07/27/25 09:38 Rocephin/D5w 1gm Iv Premix IV 08/02/25 17:27 100 mls/hr QDAY SHERYL Administration Insulin Degludec 35 unit 07/26/25 21:00 07/27/25 09:34 Insulin Degludec 5 Unit/0.05 Ml (Per 5 Units) SC 08/25/25 20:59 35 unit BID SHERYL Administration Insulin Human Lispro 0 unit 07/26/25 08:09 07/27/25 11:31 Insulin Lispro (Admelog) 1 Unit/0.01 Ml Unit SC 08/24/25 16:59 5 unit ACHS SHERYL Administration Protocol Insulin Human Lispro 20 unit 07/27/25 12:00 07/27/25 11:32 Insulin Lispro (Admelog) 1 Unit/0.01 Ml Unit SC 08/26/25 11:59 20 unit TIDWM SHERYL Administration Labetalol HCl 10 mg 07/25/25 17:14 Labetalol Inj 5 Mg/Ml Vial 20 Ml IVP 08/24/25 17:13 Q4HR PRN SBP > 180 Lidocaine 1 patch 07/26/25 10:33 Lidocaine 5% 1 Patch TOP 08/25/25 10:32 UD PRN PAIN, TOPICAL PAIN Loratadine 10 mg 07/27/25 13:57 Loratadine 10 Mg Tablet PO 08/27/25 08:59 QDAY PRN ITCHING Medroxyprogesterone Acetate 5 mg 07/27/25 14:00 Medroxyprogesterone Acet 2.5 Mg Tablet PO 08/26/25 13:59 DAILY SHERYL Ondansetron HCl 4 mg 07/25/25 09:42 Ondansetron Inj 2 Mg/Ml Inj 2 Ml IVP 08/24/25 09:41 Q6H PRN NAUSEA OR VOMITING Protocol Pantoprazole Sodium 40 mg 07/25/25 09:45 07/27/25 09:37 Pantoprazole Inj 40 Mg Vial IVP 08/24/25 09:44 40 mg QDAY SHERYL Administration Patiromer 8.4 gm 07/26/25 09:30 07/27/25 09:45 Patiromer Calcium 8.4 Gm Packet PO 08/25/25 09:29 8.4 gm QDAY SHERYL Administration Pharmacy Consult 1 each 07/25/25 17:56 Pharmacy Renal Dose Adjustment 1 Ea XX 08/24/25 17:55 PRN PRN CONSULT Ursodiol 300 mg 07/26/25 14:00 07/27/25 13:45 Ursodiol 300 Mg Capsule PO 08/25/25 13:59 300 mg TID SHERYL Administration Plan 54 year old female with PMHx of Hypertension, primary biliary cirrhosis, CKD stage IV, insulin-dependent type 2 diabetes, HFpEF (LVEF 55 to 60%) who presented to the ED due to fever, shortness of breath and noncardiac chest pain for the past 3-4 days as well as profuse vaginal bleeding with clots going for about 3 weeks. Nephro, Dr. Neil, was consulted and he says continue with gentle hydration, if kidney function does not improve then dialysis may be necessary. Plan for [facility] call tomorrow. #Acute blood loss anemia likely 2/2 vaginal bleed - resolving #Acute Normocytic Anemia Patient reports other instances of similar presentation, and is well aware of pathophysiology of her bleeding. States that the hysteroscopies are a bandage to her problem and she wants her uterus removed, but no one will do a hysterectomy because she has low platelets. OB, Dr. Whitaker, was consulted and recommends transfusion and referral back up to [facility] gynecology in [facility], and that she is not bleeding heavily enough to warrant an abdominal hysterectomy in [facility]. PT: 16.2 INR 1.6 Hemoglobin has been stable since admission Plan: -1 unit pRBC in ED repeat CBC: HGB 8.5 -1 unit platelets in ED plt: 13 (24) -CTM in AM -Transfuse if Hb >7 w/ post transfusion H+H protocol -OBgyn ok with restarting medroxy progesterone acetate for bleeding #JULIUS on CKD - improving #AG Metabolic Acidosis - resolved #Hyperuremia #Hyperkalemia - resolved ABG pH 7.3 pCO2 27L O2 142 HCO3 13, Creatinine: 4.2 BUN 87, metabolic acidosis most likely due to hyperuremia. Betahydroxybutyrate normal therefore less likely DKA. Metabolic acidosis was treated with Bicitrate 30mL. Potassium of 6 gave insulin 5 units IV, calcium gluconate 1g. NephDr. Rashaad coughlin, was consulted and recommends gentle hydration. Plan: -CTM renal panel -Bicitrate for metabolic acidosis -Velt[place] -Hyperkalemia cocktail insulin, IV calcium gluconate, and albuterol as needed - IVF -Renal US: Small kidneys with bilateral renal cortical thinning. Mild renal scar formation. No hydronephrosis - Nephrology: recs improving JULIUS, may need dialysis. #Hyperglycemia,uncontrolled. #Hx of DM2 on Insulin Glucose 349, at home uses lantus 35 units AM + PM, and aspartate on a sliding scale, unclear cause of hyperglycemia as patient's A1c is 6.0. Concern for infectious etiology as source of hyperglycemia. Plan: - Changed insulin degludec to 35 units twice daily, lispro 23, 3 times daily -SSI step 3 -ACHS glucose checks, hypoglycemia protocol in place #UTI Subjective fever and urinary urgency. UA WBC 38n leukocyte esterase positive bacteria +3 Plan: -Ceftriaxone 1 g IV QD (07/26- #Pruritis Itchy all over body, resolved with benadryl Plan: -Claritin in AM -Benadryl in PM #Hyperbilirubinemia - resolving T. Bili: 2.5, no abdominal tenderness on exam. Abd US showed normal common bile duct, moderate hepatomegaly, cirrhosis, fatty infiltration, no focal liver lesions. Most likely due to dehydration and history of ROSE vs gallstone, but less likely given cholestectomy in past medical history vs primary biliary cholangitis. Plan: -FUP Indirect: 0.6, Direct: 0.7 -Follow up with R upper quadrant US: Normal common bile duct. Moderate hepatomegaly, cirrhosis, fatty infiltration, no focal liver lesions - ursodiol 300mg PO TID #Hx of Cirrhosis due to ROSE #History of Primary Biliary Cirrhosis, per chart review. 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 Plan: -Transfuse if Hb >7 w/ post transfusion H+H protocol #Hx of HFpEF 55-60% grade I diastolic disfunction No signs of volume overload. No murmurs heard on exam. No chest pain. Plan: -CTM #Hx of HTN Patient has a past medical history of hypertension with home medication of Losartan 25 mg qday. Currently holding Losartan given JULIUS on CKD. Plan: -Labtetalol 10 mg IVP Q4HR PRN -HOLD home Losartan -Amlodipine 10 mg PO QD #History of Gout Past medical history of gout, currenlty holding Colchicine given JULIUS on CKD. PLan -Hold Colchicine. #Hx of chronic back pain Plan: -Dilaudid 0.5 mg ICP Q4HR PRN Health Maintenance: Code status: Full DVT prophylaxis: SCDs GI prophylaxis: Zofran Diet: Carb consistent [place]: None Lines: PIV Supplemental O2: NC Disposition: Tele Patient seen and reviewed with attending Dr. Rossi and supervising resident Dr. Wiley. Note written by Negro Stock MD PGY-1 Attending Provider Attestation/Addendum I have seen and examined the patient. I was physically present for the blank portions of the services provided including history, physical exam, diagnosis, treatment plans and orders. I agree with assessment and plan of care as documented by residents. Even though this this note was carefully revised there may still be minor errors in federal judge due to voice recognition software. Trinidad Rossi MD
--- NOTE | 2025-07-27 16:41 | ESPR_ITS ---
Documentation for date of: 07/27/25 CAREER DEVELOPMENT COUNSELOR Subjective Subjective Interval history: I rounded on the patient around 3:30 in the afternoon today. She was actually asleep but woke up to talk to me. Her son is at bedside. Today the patient reports feeling better. She is still reporting some vaginal bleeding but it has not gotten a lot heavier. She has only been transfused 1 unit of blood and her hemoglobin is stable at 8.1 . She was restarted her Provera today.. We did discuss her past gynecological care. I explained to the patient that since her liver is not doing well and her platelets are low, she is going to bleed more from any source. The uterine lining is unstable and will likely continue to shed. I told the patient the Provera is just a Band-Aid . I told the patient in order to stop the vaginal bleeding she will likely need a hysterectomy. I did reiterate that she is quite high risk for surgery at our hospital here and she would be better served to be at a tertiary care center especially one with a robot. The patient understands this. I told the patient she most likely just had hysteroscopy D&C's in the past, as a uterine ablation is not recommended for postmenopausal bleeding. Besides a Mirena IUD there is not much else we can offer her her besides a hysterectomy. The patient states that Dr. Joceline Thornton is her fare enforcement officer and she gave me her phone number. I then did call [facility] and talk to the certified registered nurse anesthetist for Dr. Joceline Thornton. The patient actually has a Zoom conference with her [facility] fare enforcement officer, Dr. Thornton, at 1:40 tomorrow afternoon. Subjective: patient reports feeling better and patient is tolerating oral intake Exam Vital Signs Temp Pulse Resp BP Pulse Ox O2 Del Method 98.1 F 85 17 159/66 H 95 Room Air 07/27/25 12:00 07/27/25 12:00 07/27/25 12:00 07/27/25 12:00 07/27/25 12:00 07/27/25 12:00 Narrative Exam Patient is alert and oriented x 3 she is a good historian resting comfortably in bed with her son at bedside Routine Abdominal Exam Abdominal: Present soft Comments: Obese Urinary Catheter Management Cath placed during this visit: no CAREER DEVELOPMENT COUNSELOR - PN: Obj Data Labs 07/27/25 04:27 07/27/25 04:27 Labs: Laboratory Results - last 24 hr 07/26/25 07/26/25 07/27/25 18:32 19:21 04:27 WBC 1.7 L D RBC 2.52 L Hgb 8.1 L Hct 24.0 L MCV 95 MCH 32.1 MCHC 33.8 RDW Std Deviation 53.8 H Plt Count 24 L* D Neut % (Auto) 79 Lymph % (Auto) 8 L [place] % (Auto) 12 Eos % (Auto) 0 Baso % (Auto) 0 Neut # (Auto) 1.4 L Lymph # (Auto) 0.1 L [place] # (Auto) 0.2 Eos # (Auto) 0.0 Baso # (Auto) 0.0 Immature Gran # (Auto) 0.02 H Absolute Nucleated RBC 0.00 Immature Gran % 1 H Nucleated RBC % 0 PT 14.0 H INR 1.3 VBG pH 7.28 L VBG pCO2 40 VBG pO2 33 VBG O2 Sat (Sergio) 60 L VBG Base Excess -7 L Sodium 139 Potassium 5.0 Chloride 110 H Carbon Dioxide 17.8 L Anion Gap 11 BUN 80 H Creatinine 3.8 H Estim Creat Clear Calc 22.2 L eGFR 13 L* BUN/Creatinine Ratio 21 H Glucose 259 H D Calculated Osmolality 310 H Calcium 8.5 Corrected Calcium 9.2 Phosphorus 4.9 Magnesium 2.3 Total Bilirubin 1.3 H D Direct Bilirubin 0.7 H Indirect Bilirubin 0.6 AST 24 ALT 18 Alkaline Phosphatase 57 C-Reactive Prot, Quant 12.4 H Total Protein 5.6 L Albumin 3.1 L Globulin 2.5 Albumin/Globulin Ratio 1.2 Beta-Hydroxybutyrate/Acetoacetate 0.2 Ur Random Creatinine 125 Ur Random Sodium < 15.0 L Ur Random Potassium 24 Ur Random Chloride < 20.0 L Misc Test Result Platelets confirmed ABG Interpretation ABG results: 07/25/25 07/25/25 07/26/25 07:28 18:30 18:32 ABG pH 7.28 L 7.30 L ABG pCO2 33 27 L ABG pO2 69 L 142 H D ABG HCO3 16 L 13 L ABG O2 Saturation 94 100 H ABG Base Excess -10 L -12 L VBG pH 7.28 L VBG pCO2 40 VBG pO2 33 VBG Base Excess -7 L CAREER DEVELOPMENT COUNSELOR - A/P Assessment and plan (1) Acute on chronic anemia: Problem details: Patient's hemoglobin is stable after 1 unit packed red blood cells. Platelets remain low at 24. Status: Acute (2) CKD (chronic kidney disease): Status: Acute (3) Thrombocytopenia: Status: Acute (4) Neutropenia: Status: Acute (5) Cirrhosis: Status: Acute (6) Vaginal bleeding: Problem details: Restart Provera. Patient to discuss further management with her [facility] fare enforcement officer, Dr. Joceline Thornton, on a Zoom tomorrow afternoon at 1:40. Status: Acute (7) Diabetes mellitus: Status: Acute Time Spent With Patient Time: Total time spent is greater than 50% in coordination of care (as documented) at patient's floor/unit and/or counseling patient: Time with patient: less than 15 minutes
[2025-07-27] MEDS: DiphenhydrAMINE ELIX 25 MG/10 ML UDC PO (21:08)
[2025-07-27] MEDS: ATORVASTATIN CALCIUM 10 MG TABLET PO (21:08)
[2025-07-28] VITALS (11 sets, daily range): BP systolic 140–166; BP diastolic 55–83; PULSE 81–95; RESP 12–97; TEMP 36.4–36.9; O2SAT 94–97; BMI 54.3
[2025-07-28] MEDS: HYDROmorphone INJ 2 MG/ML VIAL 0.5 MG IVP ×4 (03:03→15:48)
[2025-07-28 06:25] LABS: Basophils # (Auto) 0.0 Thou/mm3 (0.0-0.2); Basophils % (Auto) 0 % (0-2.5); Eosinophils # (Auto) 0.0 Thou/mm3 (0.0-0.5); Eosinophils % (Auto) 1 % (0-10); Hematocrit 25.2 % (36.0-46.0); Immature Granulocytes Auto 0.16 Thou/mm3 (0.00-0.00); Lymphocytes # (Auto) 0.3 Thou/mm3 (1.0-4.8); Lymphocytes % (Auto) 9 % (10-50); Mean Corpuscular HGB Conc 32.9 g/dl (31.0-37.0); Mean Corpuscular Hemoglobin 32.0 pg (25.0-35.0); Mean Corpuscular Volume 97 fL (80-100); Monocytes # (Auto) 0.6 Thou/mm3 (0.0-0.8); Monocytes % (Auto) 18 % (0-12); Neutrophils # (Auto) 2.3 Thou/mm3 (1.8-7.7); Neutrophils % (Auto) 67 % (37-80); Nucleated Red Blood Cell # 0.02 Thou/mm3 (0.00-0.00); Nucleated Red Blood Cell % 1 /100 WBC (0); RDW Standard Deviation 55.6 fL (36.4-46.3); Red Blood Count 2.59 Miln/mm3 (4.00-5.20); White Blood Count 3.4 Thou/mm3 (3.6-11.0)
[2025-07-28 06:33] LABS: INR 1.3 (0.9-1.3); Prothrombin Time 13.8 Seconds (9.0-12.2)
[2025-07-28 06:34] LABS: Hemoglobin 8.3 g/dL (12.0-16.0)
[2025-07-28 06:35] LABS: Platelet Count 24 Thou/mm3 (140-440)
[2025-07-28 06:46] LABS: Alanine Aminotransferase 16 U/L (10-49); Albumin, Serum 2.8 gm/dL (3.5-5.0); Albumin/Globulin Ratio 1.1 (1.2-2.2); Alkaline Phosphatase 60 U/L (46-116); Anion Gap 12 (7-16); Aspartate Amino Transferase 21 U/L (0-34); BUN/Creatinine Ratio 25 Ratio (12-20); Bilirubin,Total 1.0 mg/dL (0.3-1.2); Blood Urea Nitrogen 85 mg/dL (9-23); Calcium 8.4 mg/dL (8.3-10.6); Calcium (Corrected) 9.4 mg/dL (8.5-10.1); Carbon Dioxide 20.1 mMol/L (20.0-31.0); Chloride 109 mMol/L (98-107); Creatinine (Component) 3.4 mg/dL (0.6-1.3); Estimated Creatinine Clearance 24.8 mL/min (>60); Globulin 2.6 gm/dL (2.3-3.5); Glucose 217 mg/dL (74-106); Magnesium 2.3 mg/dL (1.6-2.6); Osmolality,Calculated 314 (275-295); Phosphorous 4.2 mg/dL (2.4-5.1); Potassium 4.7 mMol/L (3.4-5.1); Sodium 141 mMol/L (136-145); Total Protein 5.4 gm/dL (5.7-8.2); eGFR 15 See Note
[2025-07-28] MEDS: INSULIN LISPRO (AdmeLOG) 1 UNIT/0.01 ML UNIT SC ×3 (07:56→17:48)
[2025-07-28] MEDS: INSULIN LISPRO (AdmeLOG) 1 UNIT/0.01 ML UNIT 20 UNIT SC (07:57)
[2025-07-28] MEDS: INSULIN DEGLUDEC 5 UNIT/0.05 ML (PER 5 UNITS) 35 UNIT SC (08:44)
[2025-07-28] MEDS: CITRIC ACID/SODIUM CITR 15 ML UDC (BICITRA) 30 ML PO (08:44)
[2025-07-28] MEDS: GABAPENTIN 100 MG CAPSULE 400 MG PO (08:44)
[2025-07-28] MEDS: DOCUSATE SOD 100 MG CAPSULE PO (08:45)
[2025-07-28] MEDS: cefTRIAXone/D5w 1gm IV premix 1 GM/50 ML BAG IV (08:45)
[2025-07-28] MEDS: PATIROMER CALCIUM 8.4 GM PACKET PO (09:21)
--- NOTE | 2025-07-28 10:01 | ESDS_ITS ---
Planned Discharge Date 07/28/25 DS: Providers Provider Date of admission: 07/25/25 09:37 Primary care physician: Flip Ferraro MD Admitting Provider: Asael Tracey DO Attending Provider on Admission: Trinidad Rossi MD Consults: 07/25/25 17:43 Consult to Nephrology Routine Comment: Consulting Provider: Nathaniel Neil Attending Provider on DC: Trinidad Rossi MD Discharging Provider: Trinidad Rossi MD DS: Diagnosis Problem List Completed Was Problem List Reviewed/Reconciled?: Yes Hospital Course Hospital Course Hospital course: 54 year old female with PMHx of Hypertension, primary biliary cirrhosis, CKD stage IV, insulin-dependent type 2 diabetes, HFpEF (LVEF 55 to 60%) who presented to the ED due to fever, shortness of breath and noncardiac chest pain for the past 3-4 days as well as profuse vaginal bleeding with clots going for about 3 weeks. Admitted for acute blood loss anemia In the ED VSS labs demonstrate leukopenia with WBC 2.0, anemia with Hgb 7.6, and pancytopenic with Plt 16; betahydroxy butyrate was wnl. Chemistries notable for worsening GFR of 25 to 13, Glucose 380, CO2 15. UA remarkable for positive leukocyte esterase, RBCs present, 38 WBCs, and 3+ bacteria. Patient received IV Rocephin. Patient placed on awake overnight monitor and received IV fluids to correct fluid deficit. Patient was typed for platelet transfusion. 1 unit pRBC and 1 unit of platelets given. Pelvic US was unremarkable. Obgyn was consulted recommend transfusion and referral to gynecology in the [place] at [facility] for possible hysterectomy, and she is not bleeding heavily enough at this time to warrant an abdominal hysterectomy here at [facility] Hospital Course: In the hospital her bleeding was managed with help from OBGYN consult Dr. Whitaker, who recommended continuing provera. Following her transfusions the patients hemoglobin remained stable around hgb 8. Her [facility] doctors were called and are working on finding a specialist who will assist her with obtaining a hysterectomy rather than continuing these bleeding events caused by repeated hysteroscopies in the status of her synthetic liver disfunction notably low platelets. Her metabolic acidosis was treated with Bicitrate 30mL. Potassium of 6 gave insulin 5 units IV, calcium gluconate 1g. Nephro, Dr. Neil, was consulted and recommends gentle hydration, and also forewarns dialysis in the future if her kidney function does not improve. Her diabetes was managed with insulin degludec to 35 units twice daily, lispro 23, 3 times daily. She was found to have a uti which was treated with 1g IV ceftriaxone. Her home medication ursodial was also restarted to assist with her chronic hyperbilirubinemia. Her colchicine for her gout was held due to worsening kidney function. And her back pain was managed with dilaudid. Following conversation with [facility] doctor and patient's bleeding improvement along with anemia stabilizing she was discharged home with the assistance of her family to continue following up her care with her specialists and to receive lupron injections to assist with her bleeding. Discharge Instructions: -Follow up with labs as outpatient in 4 days after discharge -Please follow up with your [employer] [employer] doctors at [facility] after discharge -Continue your Glargine 35 units twice daily. Your Lispro insulin was increased from 10 units to Lispro 20 units with meals. -Goal for fasting glucose form 80-130 and glucose before meals under 200 -Please follow up with your primary care provider to make adjustments. -STOP Losartan given worsening kidney function. Start hydralazine 25 mg two a day. Please follow up with nephrology to make further adjustments. -New medication of Veltassa for the next 4 days. -change your colchicine dose 0.6 mg every other day given your kidney function -Please follow up with mammography upon discharge and possible biopsy -Please follow up with your primary care provider within one week of discharge -If your symptoms worsen,please seek immediate medical attention and return to your nearest emergency room -If you do not have a primary care provider, you may follow up at the [facility] at [address], [place] [address], #Acute blood loss anemia likely 2/2 vaginal bleed - resolving #Acute Normocytic Anemia #JULIUS on CKD - improving #AG Metabolic Acidosis - resolved #Hyperuremia #Hyperkalemia - resolved. #Hyperglycemia,uncontrolled. #Hx of DM2 on Insulin #UTI #Pruritis #Hyperbilirubinemia - resolving #Hx of Cirrhosis due to ROSE #History of Primary Biliary Cirrhosis, per chart review. #Complicated by pancytopenia 2/2 #Synthetic liver disfunction #Hx of HFpEF 55-60% grade I diastolic disfunction #Hx of HTN #History of Gout #Hx of chronic back pain Patient's plan and care discussed with my attending, Dr. Rossi, and supervising resident MD Negro Dunham MD Internal Medicine PGY-1 Status at Discharge Functional status at discharge: independent ambulation Overall status at discharge: patient is back to baseline Time Spent with Patient Time attestation: Total time spent providing and/or coordinating discharge services: 42 min Time spent: Greater than 30 minutes Exam Vital Signs Temp Pulse Resp BP Pulse Ox O2 Del Method 98.3 F 87 12 163/73 H 97 Room Air 07/28/25 08:00 07/28/25 08:43 07/28/25 08:00 07/28/25 08:43 07/28/25 08:00 07/28/25 08:00 Narrative Exam GENERAL APPEARANCE: AOx3. NAD, activity normal for age, obese, no cyanosis, pallor, or diaphoresis. HEENT: Normocephalic atraumatic, no facial trauma, neck is supple. Lids/conjunctiva normal. Mucous membranes moist, nares normal, lips/teeth normal uvula midline without oral pharyngeal erythema, exudate or swelling TMs normal bilaterally. No lymphangitis/lymphedema. CARDIAC: Regular rate and rhythm, S1+S2 heard. No murmurs, rubs, or gallops noted RESPIRATORY: respiratory effort normal, speaks in full sentences, no tripod position, no accessory muscle use. Lungs clear to auscultation without rhonchi, wheezes, rales ABDOMINAL: NBS. Soft, ND/NT. No evidence of fluid wave. No pulsatile masses on exam, rebound tenderness, Kwok sign or pain over Mcburney's point. MUSCLES/EXTREMITIES: No abnormal range of motion, no swelling. DERM: Warm, pink and dry. No rashes, dermatoses, petechiae or lesions. NEUROLOGICAL: Speech is clear and appropriate. Normal level of consciousness. Gait and coordination are normal. 5/5 strength in all extremities. PSYCH: Normal mood and affect. Judgement/competence is appropriate Discharge Plan Plan Patient Disposition: HOME (Self Care) Patient condition on transfer: Stable Care Plan Goals: Instructions: -Follow up with labs as outpatient in 4 days after discharge -Please follow up with your [facility] [employer] doctors at [facility] after discharge -Continue your Glargine 35 units twice daily. Your Lispro insulin was increased from 10 units to Lispro 20 units with meals. -Goal for fasting glucose form 80-130 and glucose before meals under 200 -Please follow up with your primary care provider to make adjustments. -STOP Losartan given worsening kidney function. Start hydralazine 25 mg two a day. Please follow up with nephrology to make further adjustments. -New medication of Veltassa for the next 4 days. -change your colchicine dose 0.6 mg every other day given your kidney function -Please follow up with mammography upon discharge and possible biopsy -Please follow up with your primary care provider within one week of discharge -If your symptoms worsen,please seek immediate medical attention and return to your nearest emergency room -If you do not have a primary care provider, you may follow up at the [facility] at [address] [place] [address] [address], [place] [address], Prescriptions/Referrals Prescriptions/Med Rec: New amlodipine 5 mg Tablet 10 mg PO QDAY 60 Days Qty: 120 0RF Veltassa 8.4 gram Powder In Packet 8.4 g PO QDAY 4 Days Qty: 4 0RF (DME) FreeStyle Isaac 3 [place] Misc See Rx Instructions .Route Qty: 1 0RF Rx Instructions: As directed (DME) FreeStyle Isaac 3 Sensor Device See Rx Instructions .Route Qty: 1 3RF Rx Instructions: As directed hydralazine 25 mg Tablet 25 mg PO TID 90 Days Qty: 270 0RF Continued ursodiol 300 mg Capsule 300 mg PO TID insulin glargine [Basaglar ShannonikPen U-100 Insulin] 100 unit/mL (3 mL) Insulin Pen 35 unit SUBCUT BID gabapentin 400 mg capsule 400 mg PO BID Patient Comments: TAKE ONE CAPSULE BY MOUTH TWICE DAILY FOR NERVE PAIN propranolol 10 mg tablet 10 mg PO BID Patient Comments: TAKE ONE TABLET BY MOUTH TWICE DAILY FOR BLOOD PRESSURE atorvastatin 10 mg tablet 10 mg PO HS Patient Comments: TAKE ONE TABLET BY MOUTH EVERY DAY FOR CHOLESTEROL cholecalciferol (vitamin D3) [Vitamin D3] 25 mcg (1,000 unit) Tablet 25 mcg PO QDAY ascorbic acid (vitamin C) [Vitamin C] 1,000 mg Tablet 1,000 mg PO DAILY Ozempic 0.25 mg or 0.5 mg (2 mg/3 mL) pen injector 0.5 mg SUBCUT . Patient Comments: INJECT 0.5 MG SUBCUTANEOUSLY EVERY WEEK FOR DIABETES medroxyprogesterone 10 mg tablet 10 mg PO 3XD Rx Instructions: 3 tablets daily zinc sulfate 50 mg zinc (220 mg) Capsule 50 mg PO QDAY furosemide 20 mg tablet 20 mg PO DAILY Qty: 7 0RF Patient Comments: TAKE ONE TABLET BY MOUTH EVERY MORNING A DIURETIC medroxyprogesterone 5 mg tablet 5 mg PO DAILY Patient Comments: TAKE ONE TABLET BY MOUTH EVERY DAY hydrocodone-acetaminophen 10-325 mg tablet 1 tab PO Q12H PRN (Reason: pain) Patient Comments: TAKE ONE TABLET BY MOUTH EVERY TWELVE HOURS NEEDED FOR PAIN lactulose 10 gram/15 mL solution 20 g PO TID Qty: 3000 0RF Changed insulin aspart U-100 100 unit/mL (3 mL) Insulin Pen 20 unit SUBCUT TIDPC 90 Days Qty: 15 0RF Rx Instructions: TID after meals colchicine 0.6 mg tablet 0.6 mg PO Q OTHER DAY 90 Days Qty: 45 0RF Referrals: Flip Ferraro MD [Primary Care Provider, Family Practice] Outpatient Orders (i.e. Home Health, Labs, Imaging): Comprehensive Metabolic Panel (Routine) Location: None Selected Ordered By: Sola Wiley Phosphorous (Routine) Location: None Selected Ordered By: Sola Wiley Patient/Caregiver Discharge Instructions Education Materials: How to Check Your Blood Sugar, Healthy Meals for Diabetes, Diabetes: Meal Planning, Diabetes: Ways to Take Medicine Print Language: Citizen Of [place] Stand Alone Forms: Lucie Award Info., Patient Portal Info Letter Discharge Order Discharge Orders: Discharge (Routine); Ordered 07/28/25 Ordered By: Rafael Quiles Quality Discharge Quality Measures VTE prophylaxis Attestestation Attestation I have seen and examined the patient. I was physically present for the blank portions of the services provided including history, physical exam, diagnosis, treatment plans and orders. I agree with assessment and plan of care as documented by residents. Even though this this note was carefully revised there may still be minor errors in nursery technician due to voice recognition software. Trinidad Rossi MD
[2025-07-28 10:26] LABS: Slide Review Platelets confirmed
[2025-07-28] MEDS: INSULIN LISPRO (AdmeLOG) 1 UNIT/0.01 ML UNIT 24 UNIT SC ×2 (12:14→17:48)
--- NOTE | 2025-07-28 13:15 | ESPR_ITS ---
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 Nephrology is consulted for JULIUS on CKD. Pt has advanced CKD. Pt is seen and examined. denies any shortness of breat Exam Vital Signs Temp Pulse Resp BP Pulse Ox O2 Del Method 98.5 F 90 14 154/79 H 95 Room Air 07/28/25 12:00 07/28/25 12:00 07/28/25 12:00 07/28/25 12:00 07/28/25 12:00 07/28/25 12:00 Narrative Exam GENERAL APPEARANCE: AOx3. HEENT: Normocephalic atraumatic, no facial trauma, neck is supple CARDIAC: Regular rate and rhythm, S1+S2 heard. No murmurs, rubs, or gallops noted RESPIRATORY: respiratory effort normal, speaks in full sentences, ABDOMINAL: soft MUSCLES/EXTREMITIES: No abnormal range of motion, no swelling. DERM: Warm, pink and dry. No rashes, dermatoses, petechiae or lesions. NEUROLOGICAL: Speech is clear and appropriate. PSYCH: Normal mood and affect. Judgement/competence is appropriate Objective Labs 07/28/25 05:25 07/28/25 05:25 Labs: Laboratory Results - last 24 hr 07/28/25 05:25 WBC 3.4 L D RBC 2.59 L Hgb 8.3 L Hct 25.2 L MCV 97 MCH 32.0 MCHC 32.9 RDW Std Deviation 55.6 H Plt Count 24 L* Neut % (Auto) 67 Lymph % (Auto) 9 L [place] % (Auto) 18 H Eos % (Auto) 1 Baso % (Auto) 0 Neut # (Auto) 2.3 Lymph # (Auto) 0.3 L [place] # (Auto) 0.6 Eos # (Auto) 0.0 Baso # (Auto) 0.0 Immature Gran # (Auto) 0.16 H Absolute Nucleated RBC 0.02 H Immature Gran % 5 H Nucleated RBC % 1 H PT 13.8 H INR 1.3 Sodium 141 Potassium 4.7 Chloride 109 H Carbon Dioxide 20.1 Anion Gap 12 BUN 85 H Creatinine 3.4 H Estim Creat Clear Calc 24.8 L eGFR 15 L BUN/Creatinine Ratio 25 H Glucose 217 H Calculated Osmolality 314 H Calcium 8.4 Corrected Calcium 9.4 Phosphorus 4.2 Magnesium 2.3 Total Bilirubin 1.0 AST 21 ALT 16 Alkaline Phosphatase 60 Total Protein 5.4 L Albumin 2.8 L Globulin 2.6 Albumin/Globulin Ratio 1.1 L Misc Test Result Platelets confirmed ABG Interpretation ABG results: 07/25/25 07/25/25 07/26/25 07:28 18:30 18:32 ABG pH 7.28 L 7.30 L ABG pCO2 33 27 L ABG pO2 69 L 142 H D ABG HCO3 16 L 13 L ABG O2 Saturation 94 100 H ABG Base Excess -10 L -12 L VBG pH 7.28 L VBG pCO2 40 VBG pO2 33 VBG Base Excess -7 L Assessment & Plan Assessment and plan (1) Acute on chronic anemia: Status: Acute (2) CKD (chronic kidney disease): Status: Acute Assessment and plan: eGFR trending up will continue to monitor pt do have CKD 4 if kidney function keep improving then no need for dialysis and follow up as out pt after discharge Pt looks stable at this point Pt is educated about CKD and dialysis. she states that few of her family members have been on dialysis and she knows about procedure well. 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
--- NOTE | 2025-07-28 15:07 | PC.SS ---
Rounding: Karin GÓMEZ today, pending pt tele health appt.
--- NOTE | 2025-07-28 16:20 | PD.EVENT ---
Documentation for date of: 07/28/25 Event Note Event Note: The overnight on-call physician Dr Whitaker spoke with patient's gynecologic team at [facility]. As per the conversation they have recommended that patient be given Depo-Lupron while she is inpatient. Depo-Lupron ordered. Patient plan to follow-up in [place] to remain as currently scheduled
--- NOTE | 2025-07-28 17:00 | PC.NURSE ---
Medication Lupron not given to patient, Dr. Stock states that patient will get medication as outpatient. Medication returned to pharmacy.
== END 2025-07-28 18:26 | disposition home or self-care (01) | DRG 532 ==
LOC: SERX 07-25 04:25 → SERHOLD 07-25 09:49 → S2NX 07-25 17:15
PROVIDERS: Family Medicine; Nurse Practitioner Family; Student in an Organized Health Care Education/Training Program; Admitting Provider Student in an Organized Health Care Education/Training Program; Emergency Provider Emergency Medicine; PCP Family Medicine; Visit Provider Obstetrics & Gynecology
DX: N93.9 Abnormal uterine and vaginal bleeding, unspecified (principal); I50.32 Chronic diastolic (congestive) heart failure; I13.0 Hypertensive heart and chronic kidney disease with heart failure and stage 1 through stage 4 chronic kidney disease, or unspecified chronic kidney disease; N18.4 Chronic kidney disease, stage 4 (severe); Z79.4 Long term (current) use of insulin; E66.01 Morbid (severe) obesity due to excess calories; Z68.43 Body mass index [BMI] 50.0-59.9, adult; K74.3 Primary biliary cirrhosis; R16.0 Hepatomegaly, not elsewhere classified; D61.818 Other pancytopenia; Z87.891 Personal history of nicotine dependence; E78.5 Hyperlipidemia, unspecified; D62 Acute posthemorrhagic anemia; E87.5 Hyperkalemia; E11.65 Type 2 diabetes mellitus with hyperglycemia; K75.81 Nonalcoholic steatohepatitis (NASH); D69.59 Other secondary thrombocytopenia; Z87.440 Personal history of urinary (tract) infections; N39.0 Urinary tract infection, site not specified; M10.9 Gout, unspecified; N17.9 Acute kidney failure, unspecified; E10.65 Type 1 diabetes mellitus with hyperglycemia; D63.1 Anemia in chronic kidney disease; L29.9 Pruritus, unspecified; E10.22 Type 1 diabetes mellitus with diabetic chronic kidney disease; E87.20 Acidosis, unspecified; N27.1 Small kidney, bilateral; Z79.85 Long-term (current) use of injectable non-insulin antidiabetic drugs; Z90.710 Acquired absence of both cervix and uterus; Z98.891 History of uterine scar from previous surgery; Z88.5 Allergy status to narcotic agent; Z88.1 Allergy status to other antibiotic agents
CPT/HCPCS: 36415; 36430; 36600; 71045; 76705; 76770; 76856; 80048; 80053; 80061; 80069; 80329; 81001; 81025; 82010; 82247; 82248; 82436; 82570; 82803; 83036; 83605; 83735; 83880; 84100; 84133; 84300; 84443; 84484; 85025; 85379; 85384; 85610; 85730; 86140; 86850; 86900; 86901; 86923; 86965; 87086; 93005; 94640; 99284; J0612; J0696; J1171; J1200; J1815; J2405; J2470; J2919; J7030; J7120; P9016; P9035; A9270; G0480

== ENCOUNTER 2025-08-10 22:14 | Emergency (ER) | payer MEDICAID, SELFPAY ==
[2025-08-10 22:16] VITALS: BMI 52.1
[2025-08-10 22:58] VITALS: BP 165/75; PULSE 85; RESP 20; TEMP 36.7; O2SAT 98
--- NOTE | 2025-08-10 23:12 | PD.EDEYE ---
ED Eye Problem RME/HPI General Chief complaint: Eye Problems Stated complaint: REDNESS TO EYES Time Seen by Provider: 08/10/25 23:12 Arrival date/time: 08/10/25 22:14 RME / HPI RME / HPI Narrative: 55-year-old female who uses glasses to see, history of thrombocytopenia who had a transfusion performed today as her platelets were 30K just prior to a varicose vein procedure performed with an interventional radiologist a few hours ago, presents to the ER complaining of bilateral eye redness which she noticed after the surgery. Denies any pain, headache, vision changes, loss of vision, abdominal pain, double vision, flashing lights, floaters, fever, discharge, vomiting, bleeding from any part of her body. Related Data Home Medications ?Medication ?Instructions ?Recorded ?Confirmed insulin glargine 100 unit/mL (3 35 unit subcut BID 09/30/18 07/25/25 mL) subcutaneous pen (Basaglar KwikPen U-100 Insulin) ursodiol 300 mg capsule 300 mg PO TID 09/30/18 07/25/25 ascorbic acid (vitamin C) 1,000 mg 1,000 mg PO DAILY 10/27/23 07/25/25 tablet (Vitamin C) atorvastatin 10 mg tablet 10 mg PO HS 10/27/23 07/25/25 cholecalciferol (vitamin D3) 25 25 mcg PO QDAY 10/27/23 07/25/25 mcg (1,000 unit) tablet (Vitamin D3) gabapentin 400 mg capsule 400 mg PO BID 10/27/23 07/25/25 propranolol 10 mg tablet 10 mg PO BID 10/27/23 07/25/25 medroxyprogesterone 10 mg tablet 10 mg PO 3XD 01/05/25 07/25/25 semaglutide 0.25 mg or 0.5 mg (2 0.5 mg subcut .abdullahi week 01/05/25 07/25/25 mg/3 mL) subcutaneous pen injector (Ozempic) zinc sulfate 50 mg zinc (220 mg) 50 mg PO QDAY 01/05/25 07/25/25 capsule hydrocodone 10 mg-acetaminophen 1 tab PO Q12H PRN pain 05/08/25 07/25/25 325 mg tablet medroxyprogesterone 5 mg tablet 5 mg PO DAILY 05/08/25 07/25/25 Previous Rx's ?Medication ?Instructions ?Recorded furosemide 20 mg tablet 20 mg PO DAILY Shortness of 01/08/25 Breath, Increased weight by 1-2kg in a day #7 tabs lactulose 10 gram/15 mL oral 20 g (30 mL) PO TID #3,000 mL 05/09/25 solution amlodipine 5 mg tablet 10 mg (2 x 5 mg) PO QDAY 2 months 07/28/25 #120 tabs blood-glucose sensor (FreeStyle #1 ea 07/28/25 Isaac 3 Sensor device) blood-glucose,reverberatory skimmer,cont #1 ea 07/28/25 (FreeStyle Isaac 3 Shellman) colchicine 0.6 mg tablet 0.6 mg PO Q OTHER DAY 3 months #45 07/28/25 tabs hydralazine 25 mg tablet 25 mg PO TID 3 months #270 tabs 07/28/25 insulin aspart U-100 100 unit/mL 20 unit (0.2 mL) subcut TIDPC 3 07/28/25 (3 mL) subcutaneous pen months #15 mL Allergies Allergy/AdvReac Type Severity Reaction Status Date / Time tramadol Allergy Severe Hives Verified 08/10/25 22:16 ciprofloxacin Allergy Mild Rash Verified 08/10/25 22:16 hydroxyzine Allergy Headache Verified 08/10/25 22:16 Iodinated Contrast Media Allergy Verified 08/10/25 22:16 ED Exam Narrative Physical exam: Constitutional: Vital Signs Reviewed. Well appearing. No acute distress. Not toxic appearing. Head: Normocephalic, atraumatic. Eyes: Periorbital regions normal to inspection and palpation bilaterally unless otherwise noted. Right conjunctiva with small subconjunctival hemorrhage noted at 1 PM and 5 PM Left conjunctiva with a small subconjunctival hemorrhage noted at 7 PM Sclera anicteric bilaterally. Pupils equal, round, and reactive to light bilaterally. Extraocular movements intact bilaterally. Visual duff intact by confrontation bilaterally. No hyphema or hypopyon bilaterally. ENT: Mucous membranes moist. Neck: Trachea midline. Normal range of motion. No nuchal rigidity. Respiratory: Normal effort. No respiratory distress or accessory muscle use. Neuro: Alert and oriented. Speech normal. No focal gross motor or sensory deficits observed. Skin: Warm, dry, normal color. Psych: Pleasant. Normal affect. Cooperative. Course Quality Measures none Vital Signs Vital signs: Vital Signs Temperature 98.1 F 08/10/25 22:58 Pulse Rate 85 08/10/25 22:58 Respiratory Rate 20 08/10/25 22:58 Blood Pressure 165/75 H 08/10/25 22:58 Pulse Oximetry (%) 98 08/10/25 22:58 Oxygen Delivery Method Room Air 08/10/25 22:58 Eye MDM Narrative MDM Narrative:: MDM: Exam is consistent with subconjunctival hemorrhages to bilateral eyes No appreciation for gross FB Doubt the following diagnosis: uveitis (No photophobia, floaters), keratitis (no photophobia, decreased vision), iritis (No perilimbal erythema, photophobia), scleritis (No hyperemic violacious patches of one quadrant of the globe, glaucoma (No steamy cornea or N/V), orbital cellulitis (no pain with EOM) and no significant decreased visual acuity Patient was reassured, advised f/u with pmd and optho in 1-2 days. Strict ER return precautions advised. Patient data External records reviewed:: [facility] previous records Clinical information provided by:: patient and family Social determinants that could affect healthcare access:: none Patient has the following chronic illnesses:: As noted How is presenting disease/condition affected by chronic disease/condition?: exacerbated by Evaluation data The following diagnostics were reviewed and interpreted by me:: other (specify) Lab and/or radiology exams considered but not ordered:: Additional Labs and radiology considered, but not ordered as they were not clinically indicated at this time. Interpretation Summary: N/A Medications / Prescriptions Medications or Prescriptions considered but not ordered:: I considered prescription management (both outpatient prescriptions AND drug treatment in the ER) and decided that this was necessary and was prescribed as charted. Medication administrations:: N/A Consultations Consultation(s) initiated? (list below): No Diagnosis Eye Problem Differential Diagnosis: subconjunctival hemorrhage, glaucoma and corneal ulcer Most likely diagnosis given after review of the tests above:: Subconjunctival hemorrhage Admission Indicated Admission indicated?: not indicated Admission Request Was there a request for admission?: No Disposition Plan Disposition Plan: Discharge Discharge Attestation Discharge Attestation: The patient and all family members were given an opportunity to ask questions and understood the discharge instructions. Discharge instructions specifically effects, indications for sooner follow up or return to the emergency department, and the expected course of current diagnosis. Patient condition: Stable Discharge Plan Plan Patient Disposition: HOME (Self Care) Patient condition on transfer: Stable Prescriptions/Referrals Prescriptions/Med Rec: No Action ursodiol 300 mg Capsule 300 mg PO TID insulin glargine [Basaglar KwikPen U-100 Insulin] 100 unit/mL (3 mL) Insulin Pen 35 unit SUBCUT BID gabapentin 400 mg capsule 400 mg PO BID Patient Comments: TAKE ONE CAPSULE BY MOUTH TWICE DAILY FOR NERVE PAIN propranolol 10 mg tablet 10 mg PO BID Patient Comments: TAKE ONE TABLET BY MOUTH TWICE DAILY FOR BLOOD PRESSURE atorvastatin 10 mg tablet 10 mg PO HS Patient Comments: TAKE ONE TABLET BY MOUTH EVERY DAY FOR CHOLESTEROL cholecalciferol (vitamin D3) [Vitamin D3] 25 mcg (1,000 unit) Tablet 25 mcg PO QDAY ascorbic acid (vitamin C) [Vitamin C] 1,000 mg Tablet 1,000 mg PO DAILY Ozempic 0.25 mg or 0.5 mg (2 mg/3 mL) pen injector 0.5 mg SUBCUT . Patient Comments: INJECT 0.5 MG SUBCUTANEOUSLY EVERY WEEK FOR DIABETES medroxyprogesterone 10 mg tablet 10 mg PO 3XD Rx Instructions: 3 tablets daily zinc sulfate 50 mg zinc (220 mg) Capsule 50 mg PO QDAY furosemide 20 mg tablet 20 mg PO DAILY Qty: 7 0RF Patient Comments: TAKE ONE TABLET BY MOUTH EVERY MORNING A DIURETIC medroxyprogesterone 5 mg tablet 5 mg PO DAILY Patient Comments: TAKE ONE TABLET BY MOUTH EVERY DAY hydrocodone-acetaminophen 10-325 mg tablet 1 tab PO Q12H PRN (Reason: pain) Patient Comments: TAKE ONE TABLET BY MOUTH EVERY TWELVE HOURS NEEDED FOR PAIN lactulose 10 gram/15 mL solution 20 g PO TID Qty: 3000 0RF amlodipine 5 mg Tablet 10 mg PO QDAY 60 Days Qty: 120 0RF insulin aspart U-100 100 unit/mL (3 mL) Insulin Pen 20 unit SUBCUT TIDPC 90 Days Qty: 15 0RF Rx Instructions: TID after meals (DME) FreeStyle Isaac 3 Shellman Misc See Rx Instructions .Route Qty: 1 0RF Rx Instructions: As directed (DME) FreeStyle Isaac 3 Sensor Device See Rx Instructions .Route Qty: 1 3RF Rx Instructions: As directed colchicine 0.6 mg tablet 0.6 mg PO Q OTHER DAY 90 Days Qty: 45 0RF hydralazine 25 mg Tablet 25 mg PO TID 90 Days Qty: 270 0RF Problem List Clinical Impression: Subconjunctival hemorrhage Patient/Caregiver Discharge Instructions Education Materials: ED Subconjunctival Hemorrhage Additional Instructions: Follow up with your primary medical doctor and an oiler helper within 24 hours. Return to the Emergency Room immediately for any new, worsening, continuing symptoms or any concerns at all. Return to the Emergency Room within 24 hours if you are unable to follow up with your primary medical doctor and an oiler helper within 24 hours. Print Language: Lao Stand Alone Forms: Lucie Award Info., Patient Portal Info Letter PA/BUSINESS RULES DEVELOPER Supervising Physician PA/BUSINESS RULES DEVELOPER Supervising Physician: Dr. Green
== END 2025-08-10 23:59 | disposition home or self-care (01) ==
LOC: SERX 08-11 00:04
PROVIDERS: Emergency Provider Emergency Medicine
DX: H11.31 Conjunctival hemorrhage, right eye (principal)
CPT/HCPCS: 99281

== ENCOUNTER 2025-08-19 20:20 | Inpatient (IN) | payer MEDICAID, SELFPAY ==
[2025-08-19 20:22] VITALS: BMI 52.1
--- NOTE | 2025-08-19 20:23 | EKG_ITS ---
[facility] Test Date: 2025-08-19 Pat Name: YAQUELIN STONE Department: Room: - Gender: Female [employer]: : 1970 Requested By: Edvin Yao Order Number: [id number] Reading MD: Edvin Yao Measurements Intervals Fluker Rate: 79 P: 9 AR: 126 QRS: -27 QRSD: 98 T: 67 QT: 358 QTc: 412 Interpretive Statements SINUS RHYTHM POSSIBLE ANTERIOR MYOCARDIAL INFARCTION , PROBABLY OLD [30 ms Q WAVE IN V3/V4, OR R < 0.2 mV IN V4] Compared to ECG 07/25/2025 18:01:31 Myocardial infarct finding now present /store/S0/[id number].pdf
[2025-08-19 20:34] VITALS: BP 140/51; PULSE 81; RESP 18; TEMP 36.8; O2SAT 96
--- NOTE | 2025-08-19 20:58 | XR_ITS ---
EXAMINATION: AP chest single view TECHNIQUE: Portable AP chest single view Date and time: August 19, 2025, 2113 hours INDICATIONS: Shortness of breath chest pain today. FINDINGS: Moderate enlargement cardiac contour. Moderate vascular congestion. No pneumonia or cassi pulmonary edema IMPRESSION: Moderate enlargement cardiac contour Moderate vascular congestion
--- NOTE | 2025-08-19 20:59 | EDRME_ITS ---
Rapid Medical Screening Exam RME Arrival date/time: 08/19/25 20:20 55F with history of HTN, biliary cirrhosis, CDK, DM, and HFpEF (LVEF 55 to 60%) who presented to the ED worsening SOB. Patient's Lasix dose increased about 1 week ago to 40 mg BID. Patient denies URI symptoms. Patient had US at [facility] several days ago where no ascites was found. Chief Complaint: Shortness of Breath/Dyspnea Vital signs: Vital Signs Temperature 98.2 F 08/19/25 20:34 Pulse Rate 81 08/19/25 20:34 Respiratory Rate 18 08/19/25 20:34 Blood Pressure 140/51 H 08/19/25 20:34 Pulse Oximetry (%) 96 08/19/25 20:34 Oxygen Delivery Method Room Air 08/19/25 20:34 Exam: Clear lungs. Ab distention Clinical Impression: CHF exacerbation vs ascites vs URI vs CAP vs PE
[2025-08-19 21:57] LABS: Collection Type, Urine Clean Catch
[2025-08-19 22:15] LABS: Basophils # (Auto) 0.0 Thou/mm3 (0.0-0.2); Basophils % (Auto) 0 % (0-2.5); Eosinophils # (Auto) 0.1 Thou/mm3 (0.0-0.5); Eosinophils % (Auto) 2 % (0-10); Hematocrit 22.3 % (36.0-46.0); Immature Granulocytes Auto 0.10 Thou/mm3 (0.00-0.00); Lymphocytes # (Auto) 0.4 Thou/mm3 (1.0-4.8); Lymphocytes % (Auto) 10 % (10-50); Mean Corpuscular HGB Conc 31.4 g/dl (31.0-37.0); Mean Corpuscular Hemoglobin 30.8 pg (25.0-35.0); Mean Corpuscular Volume 98 fL (80-100); Monocytes # (Auto) 0.5 Thou/mm3 (0.0-0.8); Monocytes % (Auto) 12 % (0-12); Neutrophils # (Auto) 3.3 Thou/mm3 (1.8-7.7); Neutrophils % (Auto) 74 % (37-80); Nucleated Red Blood Cell # 0.00 Thou/mm3 (0.00-0.00); Nucleated Red Blood Cell % 0 /100 WBC (0); RDW Standard Deviation 55.6 fL (36.4-46.3); Red Blood Count 2.27 Miln/mm3 (4.00-5.20); White Blood Count 4.4 Thou/mm3 (3.6-11.0)
[2025-08-19 22:19] LABS: Hemoglobin 7.0 g/dL (12.0-16.0)
[2025-08-19 22:22] LABS: Platelet Count 43 Thou/mm3 (140-440)
[2025-08-19 22:23] LABS: B-Type Natriuretic Peptide 295 pg/mL (0-100)
[2025-08-19 22:34] LABS: Bacteria,Urine 1+; Bilirubin,Urine Negative (Negative); Blood,Urine Trace (Negative); Clarity,Urine Turbid (Clear/Hazy); Color,Urine Yellow (Lt Yel-Yel); Culture Indicated,Urine Contaminated; Glucose, Urine Negative (Negative); Ketones,Urine Negative (Negative); Leukocyte Esterase,Urine Positive (Negative); Nitrite,Urine Negative (Negative); PH,Urine 5.5 (5.0-7.0); Protein,Urine Trace (Neg - Trace); RBC,Urine 8 /hpf (0-3); Specific Gravity,Urine 1.019 (1.001-1.035); Squamous Epithelial Cell,Urine 41 /hpf (0-5); Urobilinogen,Urine Negative mg/dL (0.0-1.0); WBC,Urine 23 /hpf (0-5)
[2025-08-19 22:37] LABS: Alanine Aminotransferase 24 U/L (10-49); Albumin, Serum 3.1 gm/dL (3.5-5.0); Albumin/Globulin Ratio 0.9 (1.2-2.2); Alkaline Phosphatase 71 U/L (46-116); Anion Gap 14 (7-16); Aspartate Amino Transferase 45 U/L (0-34); BUN/Creatinine Ratio 8 Ratio (12-20); Bilirubin,Total 1.2 mg/dL (0.3-1.2); Blood Urea Nitrogen 87 mg/dL (9-23); Calcium 8.7 mg/dL (8.3-10.6); Calcium (Corrected) 9.4 mg/dL (8.5-10.1); Carbon Dioxide 16.0 mMol/L (20.0-31.0); Chloride 105 mMol/L (98-107); Creatinine (Component) 10.4 mg/dL (0.6-1.3); Estimated Creatinine Clearance 7.9 mL/min (>60); Globulin 3.6 gm/dL (2.3-3.5); Glucose 206 mg/dL (74-106); Magnesium 2.5 mg/dL (1.6-2.6); Osmolality,Calculated 302 (275-295); Potassium 5.5 mMol/L (3.4-5.1); Slide Review Platelets confirmed; Sodium 135 mMol/L (136-145); Total Protein 6.7 gm/dL (5.7-8.2); eGFR 4 See Note
[2025-08-19 22:51] VITALS: BP 135/63; PULSE 79; RESP 20; TEMP 36.8; O2SAT 97
[2025-08-19 22:53] LABS: Troponin I 0.106 ng/mL (0.0-0.045)
[2025-08-20] VITALS (21 sets, daily range): BP systolic 118–168; BP diastolic 44–78; PULSE 72–94; RESP 10–99; TEMP 36.1–37.2; O2SAT 96–100
--- NOTE | 2025-08-20 00:59 | PD.EDSOB ---
ED SOB =RME/HPI General Chief Complaint: Shortness of Breath/Dyspnea Stated Complaint: HARD TIME BREATHING, LOW URINE OUTPUT, ABSCESS Arrival date/time: 08/19/25 20:20 RME / HPI RME / HPI Narrative: 08/19/25 20:20 55F with history of HTN, biliary cirrhosis, CDK, DM, and HFpEF (LVEF 55 to 60%) who presented to the ED worsening SOB. Patient's Lasix dose increased about 1 week ago to 40 mg BID. Patient denies URI symptoms. Patient had US at [facility] several days ago where no ascites was found. DR. RO MAIN ED EVALUATION: Patient presenting with Hx of Chronic Anemia, DM, Hypercholesterolemia, Cirrhotic Liver Disease with Renal Insufficiency, and Diastolic Heart Failure presents with fluid retention despite doubling dose of Lasix last week. Reports abdominal discomfort, and reduced PO intake. Notes persistent persistent edema of BLE. Reports weight gain of approximately 35 pounds in the last 1-2 months. PMH: Chronic Anemia, DM, Hypercholesterolemia, and Diastolic Heart Failure, Obesity, Edema, Hypertension, Sleep Apnea, Cirrhosis, Esophageal Varices, Irritable Bowel, Renal Disease, Arthritis, Degenerative Disk Disease, Gout, Cataracts, Depression and Anxiety PSH: Cholecystectomy, Tubal Ligation Allergies: Tramadol, Cirpofloxacin, Hydroxyzine, Iodine Contrast Media Social: Non-drinker, non-smoker, no illicit drug abuse Exam: Clear lungs. Ab distention Impression: CHF exacerbation vs ascites vs URI vs CAP vs PE Related Data Home Medications ?Medication ?Instructions ?Recorded ?Confirmed insulin glargine 100 unit/mL (3 35 unit subcut BID 09/30/18 07/25/25 mL) subcutaneous pen (Basaglar KwikPen U-100 Insulin) ursodiol 300 mg capsule 300 mg PO TID 09/30/18 07/25/25 ascorbic acid (vitamin C) 1,000 mg 1,000 mg PO DAILY 10/27/23 07/25/25 tablet (Vitamin C) atorvastatin 10 mg tablet 10 mg PO HS 10/27/23 07/25/25 cholecalciferol (vitamin D3) 25 25 mcg PO QDAY 10/27/23 07/25/25 mcg (1,000 unit) tablet (Vitamin D3) gabapentin 400 mg capsule 400 mg PO BID 10/27/23 07/25/25 propranolol 10 mg tablet 10 mg PO BID 10/27/23 07/25/25 medroxyprogesterone 10 mg tablet 10 mg PO 3XD 01/05/25 07/25/25 semaglutide 0.25 mg or 0.5 mg (2 0.5 mg subcut .abdullahi week 01/05/25 07/25/25 mg/3 mL) subcutaneous pen injector (Ozempic) zinc sulfate 50 mg zinc (220 mg) 50 mg PO QDAY 01/05/25 07/25/25 capsule hydrocodone 10 mg-acetaminophen 1 tab PO Q12H PRN pain 05/08/25 07/25/25 325 mg tablet medroxyprogesterone 5 mg tablet 5 mg PO DAILY 05/08/25 07/25/25 Previous Rx's ?Medication ?Instructions ?Recorded furosemide 20 mg tablet 20 mg PO DAILY Shortness of 01/08/25 Breath, Increased weight by 1-2kg in a day #7 tabs lactulose 10 gram/15 mL oral 20 g (30 mL) PO TID #3,000 mL 05/09/25 solution amlodipine 5 mg tablet 10 mg (2 x 5 mg) PO QDAY 2 months 07/28/25 #120 tabs blood-glucose sensor (FreeStyle #1 ea 07/28/25 Isaac 3 Sensor device) blood-glucose,jumpbasting canvas baster,cont #1 ea 07/28/25 (FreeStyle Isaac 3 [place]) colchicine 0.6 mg tablet 0.6 mg PO Q OTHER DAY 3 months #45 07/28/25 tabs hydralazine 25 mg tablet 25 mg PO TID 3 months #270 tabs 07/28/25 insulin aspart U-100 100 unit/mL 20 unit (0.2 mL) subcut TIDPC 3 07/28/25 (3 mL) subcutaneous pen months #15 mL Allergies Allergy/AdvReac Type Severity Reaction Status Date / Time tramadol Allergy Severe Hives Verified 08/19/25 20:21 ciprofloxacin Allergy Mild Rash Verified 08/19/25 20:21 hydroxyzine Allergy Headache Verified 08/19/25 20:21 Iodinated Contrast Media Allergy Verified 08/19/25 20:21 Review of Systems Review of Systems Systems Reviewed: All systems reviewed, normal except as documented Past Medical History Past Medical History CARDIAC: Positive Edema and Hypertension RESPIRATORY: Positive Sleep Apnea GASTROINTESTINAL: Positive Gastrointestinal Disorders, Cirrhosis, Esophageal Varices, Irritable Bowel and Obesity GENITOURINARY: Positive Renal Disease REPRODUCTIVE: Positive Previous Pregnancies MUSCULOSKELETAL: Positive Arthritis, Degenerative Disk Disease and Gout ENT: Positive Cataracts ENDOCRINE: Positive Endocrine Disorders HEMATOLOGIC: Positive Blood Disorders and Anemia PSYCHO/SOCIAL: Positive Depression and Anxiety OTHER HISTORY: Positive Blood Transfusions, MRSA and Measles Family History FAMILY HISTORY: Positive Family Cardiac Disorders and Family Surgery Surgical History SURGICAL: Positive Abdominal Surgery, Tubal Ligation and Section Social History SMOKING STATUS: Former smoker SECOND HAND EXPOSURE: Yes ED Exam Narrative Physical exam: GEN. APPEARANCE: The patient is alert awake oriented X-3, morbidly obese, lying down comfortably, does not look ill/toxic. Patient has good eye contact. Patient is cooperative. VITALS: All vitals were reviewed and the pulse ox is 98%, which is normal according to my interpretation HEENT: Normocephalic, atraumatic and nontender. Pupils are equal and reactive. Oral mucosa is moist. NECK: Supple, nontender, no meningismus, no JVD. There is no thyromegaly and no lymphadenopathy. CHEST: Nontender on palpation no deformity and no crepitus. CARDIOVASCULAR: Heart regular rhythm, no murmur or gallop rub or extra beats. LUNGS: Clear to auscultation bilaterally with symmetrical chest rise. No laboring tachypnea or wheezing. No intercostal subcostal retraction. No rales and no rhonchi. ABDOMEN: Soft, morbidly obese, distended, mildly tender at the epigastric region, no guarding or rebound tenderness. There are no abnormal masses palpated. No pulsatile masses or bruits. Active and normal bowel sounds. EXTREMITIES: Marked 3+ edema extending from the ankles to knees, no overlying erythema, warmth or drainage noted. No cyanosis. Patient is able to move all 4 extremities well SKIN: Warm and dry, no rashes noted. MUSCULOSKELETAL: No lumbar or midline bony tenderness. There is no CVA tenderness. No paraspinal muscle spasm or tenderness. NEURO: Cranial nerves II through XII grossly intact. There are no focal neurologic deficits noted. GCS is 15 PSYCHIATRIC: Patient is in normal mood and affect, cooperative. LYMPHATICS: No major lymphadenopathy noted. Course Quality Measures none Orders Category Date Time Status EKG (ED ONLY) *Do not use* NOW Care 08/19/25 20:23 Completed Douglass [Urinary Catheter] QS Care 08/20/25 00:55 Active Douglass to [facility] Routine Care 08/20/25 00:56 Ordered Transfuse,blood/blood products NOW Care 08/20/25 00:51 Active EKG (ED Only) Stat Exams 08/19/25 20:23 Draft US venous doppler LE BI Stat Exams 08/20/25 03:04 Taken XR chest 1V portable Stat Exams 08/19/25 20:58 Completed B-Type Natriuretic Peptide Stat Lab 08/19/25 21:48 Completed CBC Stat Lab 08/19/25 21:48 Completed Comprehensive Metabolic Panel Stat Lab 08/19/25 21:48 Completed Lipase Stat Lab 08/20/25 05:17 Completed Magnesium Stat Lab 08/19/25 21:48 Completed Packed Cells [Red Blood Cells] Stat Lab 08/20/25 00:51 Completed Troponin I Stat Lab 08/19/25 21:48 Completed Type and Screen Stat Lab 08/19/25 23:44 Completed Urinalysis, C/S if Indicated Stat Lab 08/19/25 21:50 Completed Furosemide Inj [Lasix Inj] Med 08/20/25 00:55 Discontinued 40 mg IVP X1 ONE Lidocaine 2% Viscous [Xylocaine 2% Viscous] Med 08/20/25 05:16 Discontinued 15 ml PO X1 ONE mg Hyd/Al Hyd/[place] Susp [Maalox Susp] Med 08/20/25 05:16 Discontinued 30 ml PO X1 ONE Vital Signs Vital signs: Vital Signs Temperature 98.2 F 08/19/25 20:34 Pulse Rate 81 08/19/25 20:34 Respiratory Rate 18 08/19/25 20:34 Blood Pressure 140/51 H 08/19/25 20:34 Pulse Oximetry (%) 96 08/19/25 20:34 Oxygen Delivery Method Room Air 08/19/25 20:34 Shortness of Breath / Dyspnea MDM Narrative MDM Narrative:: Scribe Attestation: Lisa Arteaga, am scribing for and in the presence of Dr. Momin. Provider Notation: Although this document has been carefully reviewed, there may still be some phonetic and other typographical errors. These errors are purely grammatical due to imperfections in the software program and should not be construed in any way to compromise the substance of the patient's medical care during this visit. Patient presenting with Hx of Chronic Anemia, DM, Hypercholesterolemia, and Diastolic Heart Failure presents with fluid retention despite doubling dose of Lasix last week. Reports abdominal discomfort, and reduced PO intake. Notes persistent persistent edema of BLE. Please see PE findings. Laboratory findings, including CBC and serum chemistries, pertinent for evidence of acute renal failure with Potassium of 5.5, CO2 of 16, Creatinine of 10, and GFR of 4. Lipase elevated of 384 suggestive of acute pancreatitis. Received IV Lasix with minimal response and appears anasarctic. CXR demonstrates pulmonary venous congestion and doppler LE is negative. Hospitalist consulted and agrees to admit, but requests abdominal CT. Final diagnoses include Acute Renal Failure, Anasarca, and Acute Pancreatitis. Patient data External records reviewed:: [facility] previous records (08/10/25 23:12 Subconjunctival hemorrhage.) Clinical information provided by:: patient Social determinants that could affect healthcare access:: none Patient has the following chronic illnesses:: Edema, Hypertension, Sleep Apnea, Cirrhosis, Esophageal Varices, Irritable Bowel, Obesity, Renal Disease, Arthritis, Degenerative Disk Disease, Gout, Cataracts, Anemia, Depression and Anxiety How is presenting disease/condition affected by chronic disease/condition?: exacerbated by Evaluation data The following diagnostics were reviewed and interpreted by me:: lab results, radiology exam(s) and EKG tracing(s) (EKG at 20:29 shows normal sinus rhythm at 79, normal axis, no ectopy, no signs of acute ischemia, per my interpretation.) Lab and/or radiology exams considered but not ordered:: None Interpretation Summary: RADIOLOGY Chest X-Ray: FINDINGS: Moderate enlargement cardiac contour. Moderate vascular congestion. No pneumonia or cassi pulmonary edema IMPRESSION: Moderate enlargement cardiac contour Moderate vascular congestion Venous Doppler Study: Findings: [place]edo scale, color flow and spectral Doppler evaluation of the Bilateral lower extremity deep veins were performed. The greater saphenous vein confluence, common femoral, femoral, popliteal and calf veins are patent and compressible. Normal respiratory variation is noted. There is no evidence of occlusive or nonocclusive thrombus. No fluid collection is demonstrated on the submitted images. Impression: No sonographic evidence of deep venous thrombosis in the bilateral lower extremities Medications / Prescriptions Medications or Prescriptions considered but not ordered:: None Medication administrations:: Medication Administration History Discontinued Medications Al Hydrox/Mg Hydrox/Simethicone (Mg Hyd/Al Hyd/[place] (Maalox Reg) Susp 30 Ml Udc) 30 ml PO X1 ONE Stop: 08/20/25 05:17 Last Admin: 08/20/25 05:36 Dose: 30 ml Documented By: KIKO Furosemide (Furosemide Inj 10 Mg/Ml 4ml Vial) 40 mg IVP X1 ONE Stop: 08/20/25 00:56 Last Admin: 08/20/25 01:27 Dose: 40 mg Documented By: KIKO Lidocaine HCl (Lidocaine Viscous 2% 15 Ml Udc) 15 ml PO X1 ONE Stop: 08/20/25 05:17 Last Admin: 08/20/25 05:36 Dose: 15 ml Documented By: KIKO See above if any Consultations Consultation(s) initiated? (list below): Yes Consultation #1 (Physician, Specialty, Details): Discussed with resident physician, Dr. Oswald, for admission. Reviewed the patient?s HPI, PMHx, lab and/or radiology results. Discussed treatment plan. Will consult an admission to the hospitalist. Time: 05:45 Diagnosis Shortness of Breath Differential Diagnosis: congestive heart failure, community acquired pneumonia (DVT, PE), pulmonary embolism and other (GERD, Ulcer, Gastritis, Cirrhosis, Pancreatis) Most likely diagnosis given after review of the tests above:: Acute Renal Failure, Anasarca, and Acute Pancreatitis. Admission Indicated Admission indicated?: indicated Explain why admission is indicated or not indicated:: Acute Renal Failure, Anasarca, and Acute Pancreatitis. Admission Request Was there a request for admission?: No Disposition Plan Disposition Plan: Admit Discharge Plan Plan Patient Disposition: Admit Acute Care w/in Hospital Prescriptions/Referrals Prescriptions/Med Rec: No Action ursodiol 300 mg Capsule 300 mg PO TID insulin glargine [Basaglar KwikPen U-100 Insulin] 100 unit/mL (3 mL) Insulin Pen 35 unit SUBCUT BID gabapentin 400 mg capsule 400 mg PO BID Patient Comments: TAKE ONE CAPSULE BY MOUTH TWICE DAILY FOR NERVE PAIN propranolol 10 mg tablet 10 mg PO BID Patient Comments: TAKE ONE TABLET BY MOUTH TWICE DAILY FOR BLOOD PRESSURE atorvastatin 10 mg tablet 10 mg PO HS Patient Comments: TAKE ONE TABLET BY MOUTH EVERY DAY FOR CHOLESTEROL cholecalciferol (vitamin D3) [Vitamin D3] 25 mcg (1,000 unit) Tablet 25 mcg PO QDAY ascorbic acid (vitamin C) [Vitamin C] 1,000 mg Tablet 1,000 mg PO DAILY Ozempic 0.25 mg or 0.5 mg (2 mg/3 mL) pen injector 0.5 mg SUBCUT .abdullahi week Patient Comments: INJECT 0.5 MG SUBCUTANEOUSLY EVERY WEEK FOR DIABETES medroxyprogesterone 10 mg tablet 10 mg PO 3XD Rx Instructions: 3 tablets daily zinc sulfate 50 mg zinc (220 mg) Capsule 50 mg PO QDAY furosemide 20 mg tablet 20 mg PO DAILY Qty: 7 0RF Patient Comments: TAKE ONE TABLET BY MOUTH EVERY MORNING A DIURETIC medroxyprogesterone 5 mg tablet 5 mg PO DAILY Patient Comments: TAKE ONE TABLET BY MOUTH EVERY DAY hydrocodone-acetaminophen 10-325 mg tablet 1 tab PO Q12H PRN (Reason: pain) Patient Comments: TAKE ONE TABLET BY MOUTH EVERY TWELVE HOURS NEEDED FOR PAIN lactulose 10 gram/15 mL solution 20 g PO TID Qty: 3000 0RF amlodipine 5 mg Tablet 10 mg PO QDAY 60 Days Qty: 120 0RF insulin aspart U-100 100 unit/mL (3 mL) Insulin Pen 20 unit SUBCUT TIDPC 90 Days Qty: 15 0RF Rx Instructions: TID after meals (DME) FreeStyle Isaac 3 [place] Misc See Rx Instructions .Route Qty: 1 0RF Rx Instructions: As directed (DME) FreeStyle Isaac 3 Sensor Device See Rx Instructions .Route Qty: 1 3RF Rx Instructions: As directed colchicine 0.6 mg tablet 0.6 mg PO Q OTHER DAY 90 Days Qty: 45 0RF hydralazine 25 mg Tablet 25 mg PO TID 90 Days Qty: 270 0RF Referrals: Flip Ferraro MD [Primary Care Provider, Family Practice] - In 1 week Problem List Clinical Impression: Acute renal failure, Anasarca, Acute pancreatitis Patient/Caregiver Discharge Instructions Print Language: Burkinan Stand Alone Forms: Lucie Award Info., Patient Portal Info Letter
[2025-08-20] MEDS: FUROSEMIDE INJ 10 MG/ML 4ML VIAL 40 MG IVP ×3 (01:27→21:30)
--- NOTE | 2025-08-20 03:04 | XR_ITS ---
Examination: Venous duplex lower extremity sonogram, bilateral. Date and time of exam: August 20, 2025, 0339 hours INDICATION: Shortness of breath leg pain beginning 2 weeks ago Technique: Multiple sonographic images of the deep venous system have been obtained. B-mode/2-D grayscale imaging of vascular structures and Doppler spectral analysis (waveforms) and color performed Both legs are examined. Findings: Deep venous systems do not demonstrate abnormal echogenicity. All visualized deep veins exhibit compressibility. All visualized deep veins exhibit augmentation. Impression: Negative for deep vein thrombosis
--- NOTE | 2025-08-20 04:52 | PRELIM_ITS ---
Bilateral lower extremity venous Doppler ultrasound. August 20, 2025 at 0339 hours Clinical history: R/O DVT. Technique: Duplex scan of the bilateral lower extremity deep venous systems was performed utilizing 2D grayscale imaging, Doppler spectral analysis and color flow Doppler and with compression. Comparison: No prior study is available for comparison. Findings: [place] scale, color flow and spectral Doppler evaluation of the Bilateral lower extremity deep veins were performed. The greater saphenous vein confluence, common femoral, femoral, popliteal and calf veins are patent and compressible. Normal respiratory variation is noted. There is no evidence of occlusive or nonocclusive thrombus. No fluid collection is demonstrated on the submitted images. Impression: No sonographic evidence of deep venous thrombosis in the bilateral lower extremities. Report Electronically Signed By: Eladio Navarro 08/20/2025 4:51:52 AM [EST]
[2025-08-20] MEDS: LIDOCAINE VISCOUS 2% 15 ML UDC PO (05:36)
[2025-08-20] MEDS: MG HYD/AL HYD/SIME (Maalox Reg) SUSP 30 ML UDC PO (05:36)
--- NOTE | 2025-08-20 05:49 | XR_ITS ---
Examination: CT abdomen and pelvis without contrast. Coronal 3-D reconstructions. Sagittal 2-D reconstructions. Date and time of exam: August 20, 2025, 0621 hours INDICATIONS: Abdominal pain shortness of breath for low urine output today, clinical diagnosis abscess COMPARISON: May 08, 2025 CTDI: vol (mGy): 23.1 DLP: (mGycm): 1462 Technique: Axial images of the abdomen have been obtained, 3 mm slice thickness Intravenous contrast material has not been administered. Low dose protocols were performed. One or more of the following dose reduction techniques were used; automated exposure control, adjustment of the mA and/or KV according to patient size, use of iterative reconstruction technique. Findings: Cirrhosis, liver nodular in contour, no definite liver lesions Marked splenomegaly Perigastric varices Anasarca Mild ascites Opaque material which may represent embolization material at the splenic hilum Moderate renal scarring, no hydronephrosis Colonic wall and small bowel boswell are thickened, hepatic colopathy enteropathy pattern No pelvic mass Urinary bladder is contracted around a Douglass catheter No abdominal or pelvic abscess Prominent osteopenia IMPRESSION: Cirrhosis, prominent splenomegaly Mild to moderate ascites Perigastric varices Anasarca Moderate renal scarring no hydronephrosis Normal appendix Hepatic colopathy hepatic enteropathy no bowel obstruction No abdominal or pelvic abscess
--- NOTE | 2025-08-20 07:56 | PC.NURSE ---
blood transfused prior to this RN assuming care, This RN transferred VS from [facility] to [facility] for last set of VS.
--- NOTE | 2025-08-20 08:46 | EDNOTE_ITS ---
Emergency Room Addendum <Aleah Urena MD - Last Filed: 08/20/25 13:00> Addendum Narrative: Patient is a 55-year-old female with medical history notable for ROSE cirrhosis, chronic kidney disease, thrombocytopenia is in emergency department shortness of breath. Prior provider evaluated patient. Ordered labs, CT abdomen pelvis without contrast, chest x-ray EKG and bilateral lower extremity ultrasound. Concern for metabolic disturbance, ACS, pneumonia, fluid overload among others. EKG performed yesterday at 2028 interpreted by me notable for sinus rhythm normal intervals nonspecific T wave changes, not a cardiac alert. Chest x-ray with moderate vascular congestion and cardiomegaly, bilateral lower extremity ultrasounds without evidence of DVT. CT abdomen pelvis without contrast notable for cirrhosis, prominent splenomegaly, mild to moderate ascites, perigastric varices, anasarca, renal scarring without hydronephrosis, hepatic enteropathy. Labs with evidence of hemoglobin 7, patient was given blood in the emergency department. Patient with thrombocytopenia platelets 43 however improved from prior. Patient with mild hypokalemia potassium 5.5, patient is having cramps, will provide medication for management. Bicarb is 16 normal gap. Creatinine is 10, previously 3.4. Patient without any significant transaminitis. Troponin is 0.106, previously not elevated, BNP is 295 slightly elevated from prior. Urinalysis positive for leuk esterase 23 white blood cells 8 red blood cells 41 squames patient without dysuria less likely infected but will send for culture. Lipase elevated 300. 9:03a discussed case with patient's computer networking instructor Dr. Augustin, recommends that we place a dialysis catheter will need dialysis today. I discussed with him the patient's platelets of 42, and that I would be repeating the CBC to see if platelets improved following the blood transfusion that she already received. If platelets are less than 50,000 I will provide patient with a unit of platelets prior to placement of the dialysis catheter. Recommend that we treat the patient's hyperkalemia. I ordered calcium, Kayexalate, insulin and dextrose. I discussed case with the hospitalist team a, accepts patient for admission. Critical Care, 60 mins Due to a high probability of clinically significant, life threatening deterioration, the patient required my highest level of preparedness to intervene emergently and I personally spent this critical care time directly and personally managing the patient. This critical care time included obtaining a history; examining the patient; pulse oximetry; ordering and review of studies; arranging urgent treatment with development of a management plan; evaluation of patient's response to treatment; frequent reassessment; and, discussions with other providers. This critical care time was performed to assess and manage the high probability of imminent, life-threatening deterioration that could result in multi-organ failure. It was exclusive of separately billable procedures and treating other patients and teaching time. Please see MDM section and the rest of the note for further information on patient assessment and treatment. 1022: Patient repeat CBC shows platelets count of 34. Ordered platelet transfusion. 1026: Discussed test HPI, PMHx, lab, radiology results and/or management with parquet floor layer's helper Dr. Peterson. the troponin is going up. Will evaluate patient 11:35a was notified by nursing staff that there are no platelets in the hospital nor in the region. Given patient's downtrending platelet count, and cirrhosis patient has a high risk of bleed. Discussed with patient's computer networking instructor Dr. Neil whether we can hold off on dialysis until IR is able to place the dialysis catheter or if the patient needs emergent dialysis at this time. States that we can do frequent renal panels and have close monitoring of the patient and hold off on dialysis until Friday as long as our interventional radiologist feels comfortable with placement given her thrombocytopenia. Also recommends ICU admission for closer monitoring. If patient clinically deteriorates and requires emergent dialysis, where benefit outweighs the risk of placing a dialysis catheter with thrombocytopenia, let them know that I would gladly place a dialysis catheter. I did discuss with Dr. Alfonso, should patient's not cirrhosis, and thrombocytopenia in the 30s. States that he feels comfortable placing the dialysis catheter on Friday. Consulted ICU, Dr. Drake will evaluate the patient 1240: Consulted with Dr. Drake. Patient can go to the floor, no ICU admission required at this time. If patient clinical condition deteriorates, ICU is happy to help with dialysis catheter. Will consult. 1251: Hospitalist made aware. Patient will be admitted. Diagnoses: -Acute renal failure -Anasarca -Acute on chronic kidney failure -Acute hyperkalemia -Elevated troponin -Shortness of breath -Symptomatic anemia -Thrombocytopenia -Pancreatitis <Xenia Hansen - Last Filed: 08/20/25 12:55> Addendum Narrative: Patient is a 55-year-old female with medical history notable for ROSE cirrhosis, chronic kidney disease, thrombocytopenia is in emergency department shortness of breath. Prior provider evaluated patient. Ordered labs, CT abdomen pelvis without contrast, chest x-ray EKG and bilateral lower extremity ultrasound. Concern for metabolic disturbance, ACS, pneumonia, fluid overload among others. EKG performed yesterday at 2028 interpreted by me notable for sinus rhythm normal intervals nonspecific T wave changes, not a cardiac alert. Chest x-ray with moderate vascular congestion and cardiomegaly, bilateral lower extremity ultrasounds without evidence of DVT. CT abdomen pelvis without contrast notable for cirrhosis, prominent splenomegaly, mild to moderate ascites, perigastric varices, anasarca, renal scarring without hydronephrosis, hepatic enteropathy. Labs with evidence of hemoglobin 7, patient was given blood in the emergency department. Patient with thrombocytopenia platelets 43 however improved from prior. Patient with mild hypokalemia potassium 5.5, patient is having cramps, will provide medication for management. Bicarb is 16 normal gap. Creatinine is 10, previously 3.4. Patient without any significant transaminitis. Troponin is 0.106, previously not elevated, BNP is 295 slightly elevated from prior. Urinalysis positive for leuk esterase 23 white blood cells 8 red blood cells 41 squames patient without dysuria less likely infected but will send for culture. Lipase elevated 300. 9:03a discussed case with patient's computer networking instructor Dr. Augustin, recommends that we place a dialysis catheter will need dialysis today. I discussed with him the patient's platelets of 42, and that I would be repeating the CBC to see if platelets improved following the blood transfusion that she already received. If platelets are less than 50,000 I will provide patient with a unit of platelets prior to placement of the dialysis catheter. Recommend that we treat the patient's hyperkalemia. I ordered calcium, Kayexalate, insulin and dextrose. I discussed case with the hospitalist team a, accepts patient for admission. Critical Care, 60 mins Due to a high probability of clinically significant, life threatening deterioration, the patient required my highest level of preparedness to intervene emergently and I personally spent this critical care time directly and personally managing the patient. This critical care time included obtaining a history; examining the patient; pulse oximetry; ordering and review of studies; arranging urgent treatment with development of a management plan; evaluation of patient's response to treatment; frequent reassessment; and, discussions with other providers. This critical care time was performed to assess and manage the high probability of imminent, life-threatening deterioration that could result in multi-organ failure. It was exclusive of separately billable procedures and treating other patients and teaching time. Please see MDM section and the rest of the note for further information on patient assessment and treatment. 1022: Patient repeat CBC shows platelets count of 34. Ordered platelet transfusion. 1026: Discussed test HPI, PMHx, lab, radiology results and/or management with parquet floor layer's helper Dr. Peterson. the troponin is going up. Will evaluate patient 11:35a was notified by nursing staff that there are no platelets in the hospital nor in the region. Given patient's downtrending platelet count, and cirrhosis patient has a high risk of bleed. Discussed with patient's computer networking instructor Dr. Neil whether we can hold off on dialysis until IR is able to place the dialysis catheter or if the patient needs emergent dialysis at this time. States that we can do frequent renal panels and have close monitoring of the patient and hold off on dialysis until Friday as long as our interventional radiologist feels comfortable with placement given her thrombocytopenia. Also recommends ICU admission for closer monitoring. I did discuss with Dr. Alfonso, should patient's not cirrhosis, and thrombocytopenia in the 30s. States that he feels comfortable placing the dialysis catheter on Friday. Consulted ICU, Dr. Drake will evaluate the patient 1240: Consulted with Dr. Drake. Patient can go to the floor, no ICU admission required at this time. 1251: Hospitalist made aware. Patient will be admitted. Diagnoses: -Acute renal failure -Anasarca -Acute on chronic kidney failure -Acute hyperkalemia -Elevated troponin -Shortness of breath -Symptomatic anemia -Thrombocytopenia -Pancreatitis Results <Aleah Urena MD - Last Filed: 08/20/25 13:00> Objective Laboratory: Laboratory Last Values WBC 3.0 Thou/mm3 (3.6-11.0) L 08/20/25 09:18 RBC 2.49 Miln/mm3 (4.00-5.20) L 08/20/25 09:18 Hgb 7.6 g/dL (12.0-16.0) L 08/20/25 09:18 Hct 23.4 % (36.0-46.0) L 08/20/25 09:18 MCV 94 fL (80-100) 08/20/25 09:18 MCH 30.5 pg (25.0-35.0) 08/20/25 09:18 MCHC 32.5 g/dl (31.0-37.0) 08/20/25 09:18 RDW Std Deviation 55.2 fL (36.4-46.3) H 08/20/25 09:18 Plt Count 34 Thou/mm3 (140-440) L D 08/20/25 09:18 Neut % (Auto) 68 % (37-80) 08/20/25 09:18 Lymph % (Auto) 14 % (10-50) 08/20/25 09:18 Davis % (Auto) 16 % (0-12) H 08/20/25 09:18 Eos % (Auto) 2 % (0-10) 08/20/25 09:18 Baso % (Auto) 0 % (0-2.5) 08/20/25 09:18 Neut # (Auto) 2.1 Thou/mm3 (1.8-7.7) 08/20/25 09:18 Lymph # (Auto) 0.4 Thou/mm3 (1.0-4.8) L 08/20/25 09:18 Davis # (Auto) 0.5 Thou/mm3 (0.0-0.8) 08/20/25 09:18 Eos # (Auto) 0.1 Thou/mm3 (0.0-0.5) 08/20/25 09:18 Baso # (Auto) 0.0 Thou/mm3 (0.0-0.2) 08/20/25 09:18 Immature Gran # (Auto) 0.04 Thou/mm3 (0.00-0.00) H 08/20/25 09:18 Absolute Nucleated RBC 0.00 Thou/mm3 (0.00-0.00) 08/20/25 09:18 Immature Gran % 1 % (0-0) H 08/20/25 09:18 Nucleated RBC % 0 /100 WBC (0) 08/20/25 09:18 VBG pH 7.38 (7.33-7.66) 08/20/25 09:18 VBG pCO2 29 mmHg (36-56) L 08/20/25 09:18 VBG pO2 72 mmHg (15-58) H 08/20/25 09:18 VBG O2 Sat (Sergio) 93 % (96-97) L 08/20/25 09:18 VBG Base Excess -8 (-3-3) L 08/20/25 09:18 Sodium Cancelled 08/20/25 05:17 Potassium Cancelled 08/20/25 05:17 Chloride Cancelled 08/20/25 05:17 Carbon Dioxide Cancelled 08/20/25 05:17 Anion Gap Cancelled 08/20/25 05:17 BUN Cancelled 08/20/25 05:17 Creatinine Cancelled 08/20/25 05:17 Estim Creat Clear Calc Cancelled 08/20/25 05:17 eGFR Cancelled 08/20/25 05:17 BUN/Creatinine Ratio Cancelled 08/20/25 05:17 Glucose Cancelled 08/20/25 05:[address] Glu mg/dL 140 mg/dL (80-131) H 08/20/25 09:18 Hemoglobin A1c 6.5 % Hgb (4.8-6.0) H 08/20/25 09:18 Calculated Osmolality Cancelled 08/20/25 05:17 Lactic Acid 1.4 mMol/L (0.4-2.0) 08/20/25 09:18 Calcium Cancelled 08/20/25 05:17 Corrected Calcium 9.4 mg/dL (8.5-10.1) 08/19/25 21:48 Magnesium 2.5 mg/dL (1.6-2.6) 08/19/25 21:48 Total Bilirubin 1.2 mg/dL (0.3-1.2) 08/19/25 21:48 AST 45 U/L (0-34) H 08/19/25 21:48 ALT 24 U/L (10-49) 08/19/25 21:48 Alkaline Phosphatase 71 U/L (46-116) 08/19/25 21:48 Troponin I 0.124 ng/mL (0.0-0.045) H* 08/20/25 09:18 B-Natriuretic Peptide 295 pg/mL (0-100) H 08/19/25 21:48 Total Protein 6.7 gm/dL (5.7-8.2) 08/19/25 21:48 Albumin 3.1 gm/dL (3.5-5.0) L 08/19/25 21:48 Globulin 3.6 gm/dL (2.3-3.5) H 08/19/25 21:48 Albumin/Globulin Ratio 0.9 (1.2-2.2) L 08/19/25 21:48 Lipase Cancelled 08/20/25 05:17 Ur Collection Type Clean Catch 08/19/25 21:50 Urine Color Yellow (Lt Yel-Yel) 08/19/25 21:50 Urine Clarity Turbid (Clear/Hazy) A 08/19/25 21:50 Urine pH 5.5 (5.0-7.0) 08/19/25 21:50 Ur Specific [place] 1.019 (1.001-1.035) 08/19/25 21:50 Urine Protein Trace (Neg - Trace) 08/19/25 21:50 Urine Glucose (UA) Negative (Negative) 08/19/25 21:50 Urine Ketones Negative (Negative) 08/19/25 21:50 Urine Blood Trace (Negative) 08/19/25 21:50 Urine Nitrite Negative (Negative) 08/19/25 21:50 Urine Bilirubin Negative (Negative) 08/19/25 21:50 Urine Urobilinogen (Auto) Negative mg/dL (0.0-1.0) 08/19/25 21:50 Ur Leukocyte Esterase Positive (Negative) 08/19/25 21:50 Urine RBC 8 /hpf (0-3) H 08/19/25 21:50 Urine WBC 23 /hpf (0-5) H 08/19/25 21:50 Ur Squamous Epith Cells 41 /hpf (0-5) H 08/19/25 21:50 Urine Bacteria 1+ (None) A 08/19/25 21:50 Ur Culture Indicated? Contaminated 08/19/25 21:50 Misc Test Result Platelets confirmed 08/20/25 09:18 Blood Type A Negative 08/19/25 23:44 Antibody Screen NEGATIVE 08/19/25 23:44 Crossmatch See Detail 08/19/25 23:44 Blood Bank Wristband ID Yes 08/19/25 23:44 <Xenia Tyrone - Last Filed: 08/20/25 12:55> Objective Laboratory: Laboratory Last Values WBC 3.0 Thou/mm3 (3.6-11.0) L 08/20/25 09:18 RBC 2.49 Miln/mm3 (4.00-5.20) L 08/20/25 09:18 Hgb 7.6 g/dL (12.0-16.0) L 08/20/25 09:18 Hct 23.4 % (36.0-46.0) L 08/20/25 09:18 MCV 94 fL (80-100) 08/20/25 09:18 MCH 30.5 pg (25.0-35.0) 08/20/25 09:18 MCHC 32.5 g/dl (31.0-37.0) 08/20/25 09:18 RDW Std Deviation 55.2 fL (36.4-46.3) H 08/20/25 09:18 Plt Count 34 Thou/mm3 (140-440) L D 08/20/25 09:18 Neut % (Auto) 68 % (37-80) 08/20/25 09:18 Lymph % (Auto) 14 % (10-50) 08/20/25 09:18 Davis % (Auto) 16 % (0-12) H 08/20/25 09:18 Eos % (Auto) 2 % (0-10) 08/20/25 09:18 Baso % (Auto) 0 % (0-2.5) 08/20/25 09:18 Neut # (Auto) 2.1 Thou/mm3 (1.8-7.7) 08/20/25 09:18 Lymph # (Auto) 0.4 Thou/mm3 (1.0-4.8) L 08/20/25 09:18 Davis # (Auto) 0.5 Thou/mm3 (0.0-0.8) 08/20/25 09:18 Eos # (Auto) 0.1 Thou/mm3 (0.0-0.5) 08/20/25 09:18 Baso # (Auto) 0.0 Thou/mm3 (0.0-0.2) 08/20/25 09:18 Immature Gran # (Auto) 0.04 Thou/mm3 (0.00-0.00) H 08/20/25 09:18 Absolute Nucleated RBC 0.00 Thou/mm3 (0.00-0.00) 08/20/25 09:18 Immature Gran % 1 % (0-0) H 08/20/25 09:18 Nucleated RBC % 0 /100 WBC (0) 08/20/25 09:18 VBG pH 7.38 (7.33-7.66) 08/20/25 09:18 VBG pCO2 29 mmHg (36-56) L 08/20/25 09:18 VBG pO2 72 mmHg (15-58) H 08/20/25 09:18 VBG O2 Sat (Sergio) 93 % (96-97) L 08/20/25 09:18 VBG Base Excess -8 (-3-3) L 08/20/25 09:18 Sodium Cancelled 08/20/25 05:17 Potassium Cancelled 08/20/25 05:17 Chloride Cancelled 08/20/25 05:17 Carbon Dioxide Cancelled 08/20/25 05:17 Anion Gap Cancelled 08/20/25 05:17 BUN Cancelled 08/20/25 05:17 Creatinine Cancelled 08/20/25 05:17 Estim Creat Clear Calc Cancelled 08/20/25 05:17 eGFR Cancelled 08/20/25 05:17 BUN/Creatinine Ratio Cancelled 08/20/25 05:17 Glucose Cancelled 08/20/25 05:[address] Glu mg/dL 140 mg/dL (80-131) H 08/20/25 09:18 Hemoglobin A1c 6.5 % Hgb (4.8-6.0) H 08/20/25 09:18 Calculated Osmolality Cancelled 08/20/25 05:17 Lactic Acid 1.4 mMol/L (0.4-2.0) 08/20/25 09:18 Calcium Cancelled 08/20/25 05:17 Corrected Calcium 9.4 mg/dL (8.5-10.1) 08/19/25 21:48 Magnesium 2.5 mg/dL (1.6-2.6) 08/19/25 21:48 Total Bilirubin 1.2 mg/dL (0.3-1.2) 08/19/25 21:48 AST 45 U/L (0-34) H 08/19/25 21:48 ALT 24 U/L (10-49) 08/19/25 21:48 Alkaline Phosphatase 71 U/L (46-116) 08/19/25 21:48 Troponin I 0.124 ng/mL (0.0-0.045) H* 08/20/25 09:18 B-Natriuretic Peptide 295 pg/mL (0-100) H 08/19/25 21:48 Total Protein 6.7 gm/dL (5.7-8.2) 08/19/25 21:48 Albumin 3.1 gm/dL (3.5-5.0) L 08/19/25 21:48 Globulin 3.6 gm/dL (2.3-3.5) H 08/19/25 21:48 Albumin/Globulin Ratio 0.9 (1.2-2.2) L 08/19/25 21:48 Lipase Cancelled 08/20/25 05:17 Ur Collection Type Clean Catch 08/19/25 21:50 Urine Color Yellow (Lt Yel-Yel) 08/19/25 21:50 Urine Clarity Turbid (Clear/Hazy) A 08/19/25 21:50 Urine pH 5.5 (5.0-7.0) 08/19/25 21:50 Ur Specific [place] 1.019 (1.001-1.035) 08/19/25 21:50 Urine Protein Trace (Neg - Trace) 08/19/25 21:50 Urine Glucose (UA) Negative (Negative) 08/19/25 21:50 Urine Ketones Negative (Negative) 08/19/25 21:50 Urine Blood Trace (Negative) 08/19/25 21:50 Urine Nitrite Negative (Negative) 08/19/25 21:50 Urine Bilirubin Negative (Negative) 08/19/25 21:50 Urine Urobilinogen (Auto) Negative mg/dL (0.0-1.0) 08/19/25 21:50 Ur Leukocyte Esterase Positive (Negative) 08/19/25 21:50 Urine RBC 8 /hpf (0-3) H 08/19/25 21:50 Urine WBC 23 /hpf (0-5) H 08/19/25 21:50 Ur Squamous Epith Cells 41 /hpf (0-5) H 08/19/25 21:50 Urine Bacteria 1+ (None) A 08/19/25 21:50 Ur Culture Indicated? Contaminated 08/19/25 21:50 Misc Test Result Platelets confirmed 08/20/25 09:18 Blood Type A Negative 08/19/25 23:44 Antibody Screen NEGATIVE 08/19/25 23:44 Crossmatch See Detail 08/19/25 23:44 Blood Bank Wristband ID Yes 08/19/25 23:44 Imaging: Procedure(s): CT abdomen pelvis wo con Accession Number(s): [id number] cc: Lew Momin DO; Flip Ferraro MD; Gustavo Alfonso MD~ Examination: CT abdomen and pelvis without contrast. Coronal 3-D reconstructions. Sagittal 2-D reconstructions. Date and time of exam: August 20, 2025, 0621 hours INDICATIONS: Abdominal pain shortness of breath for low urine output today, clinical diagnosis abscess COMPARISON: May 08, 2025 CTDI: vol (mGy): 23.1 DLP: (mGycm): 1462 Technique: Axial images of the abdomen have been obtained, 3 mm slice thickness Intravenous contrast material has not been administered. Low dose protocols were performed. One or more of the following dose reduction techniques were used; automated exposure control, adjustment of the mA and/or KV according to patient size, use of iterative reconstruction technique. Findings: Cirrhosis, liver nodular in contour, no definite liver lesions Marked splenomegaly Perigastric varices Anasarca Mild ascites Opaque material which may represent embolization material at the splenic hilum Moderate renal scarring, no hydronephrosis Colonic wall and small bowel boswell are thickened, hepatic colopathy enteropathy pattern No pelvic mass Urinary bladder is contracted around a Douglass catheter No abdominal or pelvic abscess Prominent osteopenia IMPRESSION: Cirrhosis, prominent splenomegaly Mild to moderate ascites Perigastric varices Anasarca Moderate renal scarring no hydronephrosis Normal appendix Hepatic colopathy hepatic enteropathy no bowel obstruction No abdominal or pelvic abscess Dictated By: Gustavo Alfonso MD Procedure(s): US venous doppler LE BI Accession Number(s): [id number] cc: Lew Momin DO; Flip Ferrrao MD; Gustavo Alfonso MD~ Examination: Venous duplex lower extremity sonogram, bilateral. Date and time of exam: August 20, 2025, 0339 hours INDICATION: Shortness of breath leg pain beginning 2 weeks ago Technique: Multiple sonographic images of the deep venous system have been obtained. B-mode/2-D grayscale imaging of vascular structures and Doppler spectral analysis (waveforms) and color performed Both legs are examined. Findings: Deep venous systems do not demonstrate abnormal echogenicity. All visualized deep veins exhibit compressibility. All visualized deep veins exhibit augmentation. Impression: Negative for deep vein thrombosis Dictated By: Gustavo Alfonso MD Procedure(s): XR chest 1V portable Accession Number(s): [id number] cc: Flip Ferraro MD; Gustavo Alfonso MD; Edvin Yao PA-C~ EXAMINATION: AP chest single view TECHNIQUE: Portable AP chest single view Date and time: August 19, 2025, 2114 hours INDICATIONS: Shortness of breath chest pain today. FINDINGS: Moderate enlargement cardiac contour. Moderate vascular congestion. No pneumonia or cassi pulmonary edema IMPRESSION: Moderate enlargement cardiac contour Moderate vascular congestion Dictated By: Gustavo Alfonso MD
[2025-08-20 09:23] LABS: Base Excess, Venous -8 (-3-3); Lactate (Lactic Acid) 1.4 mMol/L (0.4-2.0); O2 Saturation, Venous 93 % (96-97); PCO2, Venous 29 mmHg (36-56); PO2, Venous 72 mmHg (15-58); pH, Venous 7.38 (7.33-7.66)
[2025-08-20 09:37] LABS: Basophils # (Auto) 0.0 Thou/mm3 (0.0-0.2); Basophils % (Auto) 0 % (0-2.5); Eosinophils # (Auto) 0.1 Thou/mm3 (0.0-0.5); Eosinophils % (Auto) 2 % (0-10); Hematocrit 23.4 % (36.0-46.0); Immature Granulocytes Auto 0.04 Thou/mm3 (0.00-0.00); Lymphocytes # (Auto) 0.4 Thou/mm3 (1.0-4.8); Lymphocytes % (Auto) 14 % (10-50); Mean Corpuscular HGB Conc 32.5 g/dl (31.0-37.0); Mean Corpuscular Hemoglobin 30.5 pg (25.0-35.0); Mean Corpuscular Volume 94 fL (80-100); Monocytes # (Auto) 0.5 Thou/mm3 (0.0-0.8); Monocytes % (Auto) 16 % (0-12); Neutrophils # (Auto) 2.1 Thou/mm3 (1.8-7.7); Neutrophils % (Auto) 68 % (37-80); Nucleated Red Blood Cell # 0.00 Thou/mm3 (0.00-0.00); Nucleated Red Blood Cell % 0 /100 WBC (0); RDW Standard Deviation 55.2 fL (36.4-46.3); Red Blood Count 2.49 Miln/mm3 (4.00-5.20); White Blood Count 3.0 Thou/mm3 (3.6-11.0)
[2025-08-20 09:38] LABS: Hemoglobin 7.6 g/dL (12.0-16.0); Platelet Count 34 Thou/mm3 (140-440)
[2025-08-20] MEDS: INSULIN HUM REGULAR 1 UNIT/0.01 ML (PER UNIT) 5 UNIT IV (09:40)
[2025-08-20] MEDS: SOD POLYSTYRENE SULFON SUSP 15 GM/60 ML BTL 30 GM PO (09:41)
[2025-08-20] MEDS: CALCIUM GLUCONATE 10% INJ 1 GM/10 ML VIAL IV (09:41)
[2025-08-20] MEDS: DEXTROSE 50%-WATER INJ 50 ML SYRINGE IV (09:42)
[2025-08-20 09:54] LABS: Troponin I 0.124 ng/mL (0.0-0.045)
[2025-08-20 10:05] LABS: Slide Review Platelets confirmed
--- NOTE | 2025-08-20 10:17 | ESHP_ITS ---
<Statement entered by Darian Gonzalez MD - 08/30/25 08:32> I reviewed above note and agree with findings and plans. I have also personally examined the patient with medicine team and went over assessment and plan with medical team including industrial design intern and resident physician. <Statement entered by Nydia Jay MD - 08/20/25 15:25> Ms. Hopper is a 55-year-old female with a past medical history of hypertension, hyperlipidemia, insulin-dependent type 2 diabetes mellitus, gout, history of severe thrombocytopenia secondary to moderate hypersplenism & Cirrhosis and CKD presented to the ED complaining of worsening shortness of breath and 3+ pitting edema in the lower extremities. In the ED patient's hemoglobin is 7 and platelets 43, patient is status post 1 unit PRBC and platelets are ordered however not transfused. ED consulted nephrology for worsening kidney function with fluid overload state. Nephrology recommended urgent dialysis, however temporary dialysis catheter was deferred due to patient's worsening thrombocytopenia. Patient will need tunneled dialysis catheter by IR on Friday. Nephrology recommended to repeat renal panel every 4 hours to continue to monitor kidney function and continue diuresing. If patient decompensates then will have to emergently place a temporary dialysis catheter for urgent dialysis. ICU is consulted in case patient decompensates over night. Will aggressively diurese with Lasix 3 times daily with strict ins and outs with goal of 2 to 3 L output. Nephrology is on board, PPD skin test is ordered as well as hepatitis panel. Patient was seen and examined by me personally. I have directly supervised and reviewed documentation by the team resident and agree with its findings. ------- Plan of care was discussed with the attending, Dr. Lisa Jay, PGY-2 Documentation for date of: 08/20/25 HPI History of Present Illness Chief complaint: Shortness of breath and fatigue History of present illness: Ms Hopper is a 55 year old woman with PMH significant for cirrhosis, NAFLD, CKD IV, Severe thrombocytiopenia, htn, gout, t2dm, grade 1 esophageal varices w several hospital admissions in the past year who presented with shortness of breath and fatigue. She states that she had recent embolization procedure done in [place] for varices, she states that after that procedure on 08/10 she started to experience worsening shortness of breath and noticed that her lower extremities had increased swelling. she endorses some mild epigastric tenderness. 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, NAFLD, CKD stage 4, severe thrombocytopenia 2/2 cirrhosis and moderate hypersplenism, recurrent necrotizing fasciitis, HTN, T2DM, gout, Grade 1 esophageal varices, gastric varices SUR/12 splenic artery embolization in [place], I&D of necrotizing fasciitis, cholecystectomy, appendectomy Meds: Glargine 35 BID, lantus 20 TID with meals Social: Lives at home with her children in [facility] [place], pt states that she is able to ambulate/navigate with significant effort, using four wheel walker, Quit smoking 2015 (previously smoked 2-3 cigarettes on social occasions), quit drinking May 2024 (previously only on social occasions), denies recreational drug use Exam Vital Signs Temp Pulse Resp BP Pulse Ox O2 Del Method 98.4 F 88 16 145/46 H 97 Room Air 08/20/25 09:12 08/20/25 09:12 08/20/25 09:12 08/20/25 09:12 08/20/25 09:12 08/20/25 09:12 Narrative Exam GENERAL: Short of breath laying on her left side. AAO x3, HEENT: Head AT/ NC. Mucous membranes moist. PERRL. NECK: Supple, no lymphadenopathy, ample anterior soft tissue, large neck circumference CARDIOVASCULAR: RRR. Normal S1/S2, 2+ pitting edema of bilateral LEs. L>R to the bilateral knees. RESPIRATORY: Bilateral crackles on auscultation GASTROINTESTINAL: Abdomen obese soft, non tender no palpable masses. Bowel sounds present MUSCULOSKELETAL:? No cyanosis or edema, no visible joint swelling. NEUROLOGICAL: CN II-XII grossly intact. No focal deficits. Sensation intact, symmetric. PSYCHIATRIC: Awake and alert, not agitated, normal mood and affect. SKIN: No obvious rashes, no jaundice, normal turgor. Results: Labs 08/20/25 09:18 08/19/25 21:48 Labs: Short CBC 08/19/25 08/20/25 Range/Units 21:48 09:18 WBC 4.4 3.0 L (3.6-11.0) Thou/mm3 Hgb 7.0 L 7.6 L (12.0-16.0) g/dL Hct 22.3 L 23.4 L (36.0-46.0) % Plt Count 43 L D 34 L D (140-440) Thou/mm3 BMP 08/19/25 21:48 Sodium 135 L Potassium 5.5 H Chloride 105 Carbon Dioxide 16.0 L BUN 87 H Creatinine 10.4 H* Glucose 206 H Calcium 8.7 Cardiac Enzymes 08/19/25 08/20/25 Range/Units 21:48 09:18 Troponin I 0.106 H* 0.124 H* (0.0-0.045) ng/mL Liver Function 08/19/25 Range/Units 21:48 Total Bilirubin 1.2 (0.3-1.2) mg/dL AST 45 H (0-34) U/L ALT 24 (10-49) U/L Alkaline Phosphatase 71 (46-116) U/L Albumin 3.1 L (3.5-5.0) gm/dL Urine 08/19/25 Range/Units 21:50 Urine Color Yellow (Lt Yel-Yel) Urine Clarity Turbid A (Clear/Hazy) Urine pH 5.5 (5.0-7.0) Ur Specific Frost 1.019 (1.001-1.035) Urine Protein Trace (Neg - Trace) Urine Glucose (UA) Negative (Negative) ABG Interpretation ABG results: 08/20/25 09:18 VBG pH 7.38 VBG pCO2 29 L VBG pO2 72 H VBG Base Excess -8 L Quality Measures Quality Measures VTE prophylaxis Medications Home Medications and Allergies Home Medications ?Medication ?Instructions ?Recorded ?Confirmed ?Type insulin glargine 100 unit/mL (3 35 unit subcut BID 11/1707/25/25 History mL) subcutaneous pen (Basaglar KwikPen U-100 Insulin) ursodiol 300 mg capsule 300 mg PO TID 09/30/1807/25 History ascorbic acid (vitamin C) 1,000 mg 1,000 mg PO DAILY 0 10/27/23 07/25/25 History tablet (Vitamin C) atorvastatin 10 mg tablet 10 mg PO HS 10/27/23 5 History cholecalciferol (vitamin D3) 25 25 mcg PO QDAY 4 07/25/25 History mcg (1,000 unit) tablet (Vitamin D3) gabapentin 400 mg capsule 400 mg PO BID 10/27/2307/25 History propranolol 10 mg tablet 10 mg PO BID 10/27/23 History medroxyprogesterone 10 mg tablet 10 mg PO 3XD 01/05/25 07/25/25 History semaglutide 0.25 mg or 0.5 mg (2 0.5 mg subcut .abdullahi orozco 01/05/25 07/25/25 History mg/3 mL) subcutaneous pen injector (Ozempic) zinc sulfate 50 mg zinc (220 mg) 50 mg PO QDAY 5 07/25/25 History capsule hydrocodone 10 mg-acetaminophen 1 tab PO Q12H PRN pain 05/08/25 07/25/25 History 325 mg tablet medroxyprogesterone 5 mg tablet 5 mg PO DAILY 05/08/25 07/25/25 History Allergies Allergy/AdvReac Type Severity Reaction Status Date / Time tramadol Allergy Severe Hives Verified 08/19/25 20:21 ciprofloxacin Allergy Mild Rash Verified 08/19/25 20:21 hydroxyzine Allergy Headache Verified 08/19/25 20:21 Iodinated Contrast Media Allergy Verified 08/19/25 20:21 Visit Medications Acetaminophen (Acetaminophen 325 Mg Tablet) 650 mg PO Q6H PRN PRN Reason: Fever >100.4 and pain Stop: 09/19/25 10:07 Dextrose (Dextrose 50%-Water Inj 50 Ml Syringe) 25 ml IV Q15MIN PRN PRN Reason: BG 50-70 responsive npo pt Stop: 09/19/25 10:13 Dextrose (Dextrose 50%-Water Inj 50 Ml Syringe) 50 ml IV Q15MIN PRN PRN Reason: BG <50 OR BG <70 & pt unresponsive Stop: 09/19/25 10:13 Glucagon (Glucagon Inj 1 Mg Vial) 1 mg IM Q15MIN PRN PRN Reason: BG <70, and no IV access Insulin Human Lispro (Insulin Lispro (Admelog) 1 Unit/0.01 Ml Unit) 0 unit SC AC SHERYL; Protocol Stop: 09/19/25 11:29 Ondansetron HCl (Ondansetron Inj 2 Mg/Ml Inj 2 Ml) 4 mg IVP Q6H PRN; Protocol PRN Reason: NAUSEA OR VOMITING Stop: 09/19/25 10:07 Pantoprazole Sodium (Pantoprazole Inj 40 Mg Vial) 40 mg IVP QDAY SHERYL Stop: 09/19/25 10:14 Discontinued Medications Al Hydrox/Mg Hydrox/Simethicone (Mg Hyd/Al Hyd/Chacho (Maalox Reg) Susp 30 Ml Udc) 30 ml PO X1 ONE Stop: 08/20/25 05:17 Last Admin: 08/20/25 05:36 Dose: 30 ml Calcium Gluconate (Calcium Gluconate 10% Inj 1 Gm/10 Ml Vial) 1 gm IV X1 ONE Stop: 08/20/25 09:02 Last Admin: 08/20/25 09:41 Dose: 1 gm Dextrose (Dextrose 50%-Water Inj 50 Ml Syringe) 50 ml IV X1 ONE Stop: 08/20/25 09:02 Last Admin: 08/20/25 09:42 Dose: 50 ml Furosemide (Furosemide Inj 10 Mg/Ml 4ml Vial) 40 mg IVP X1 ONE Stop: 08/20/25 00:56 Last Admin: 08/20/25 01:27 Dose: 40 mg Hydromorphone HCl (Hydromorphone Inj 2 Mg/Ml Vial) 1 mg IVP X1 ONE Stop: 08/20/25 10:09 Insulin Human Regular (Insulin Hum Regular 1 Unit/0.01 Ml (Per Unit)) 5 unit IV X1 ONE Stop: 08/20/25 09:02 Last Admin: 08/20/25 09:40 Dose: 5 unit Lidocaine HCl (Lidocaine Viscous 2% 15 Ml Udc) 15 ml PO X1 ONE Stop: 08/20/25 05:17 Last Admin: 08/20/25 05:36 Dose: 15 ml Sodium Polystyrene Sulfonate (Sod Polystyrene Sulfon Susp 15 Gm/60 Ml Btl) 30 gm PO X1 ONE Stop: 08/20/25 09:02 Last Admin: 08/20/25 09:41 Dose: 30 gm Tuberculin PPD (Tuberculin Ppd Inj 5 Unit/0.1 Ml Dose) 5 unit ID X1 ONE Stop: 08/20/25 09:14 Assessment & Plan Plan Ms Hopper is a 55 year old woman with a hx significant for advanced CKD that has now progressed to ESRD, HFpEF 55-60 12/2024, HLD, HTN, who presented with malaise and shortness of breath, found to be significantly volume overloaded, with elevated BUN and Cr, admitted for dialysis vs diuresis, given pt with severe thrombocytopenia 2/2 cirrhosis defer placing temp hd line.Nephrology consulted, Dr Neil. Plan for IV diuresis. Hx of Advanced CKD, now with ESRD Chronic Normocytic Anemia HyperKalemia AGAMA Cr 10.4, eGFR 4, BUN 87 Dx - PPD TB skin test - Acute Hepatitis Panel Pending - Coag pending PT INR Tx - Dr. Neil Consulted, appreciate recs - HD deferred given thrombocytopenia 2/2 cirrhosis - Continue with IV diuresis with Lasix Acute CHF exaccerbation HFpEF (echo 12/2024 w EF 55-60%) Troponinemia Weight on admission 129.27 kg Likely 2/2 ESRD (see above) BNP 200s Plan Cardiology Consulted, Nicholas: suspect demand ischemia given non specific st elevation on ekg and trop elevation Trend troponin, till peaked : 0.106-->0.124 Strict I and O Daily Weights Lasix 40 IV TID will likely improve with HD (see ESRD above) UTI Dx UA with Turbid urine, with positive leukocyte esterase and wbc and 1+ bacteria, Repeat UA with reflex UCx, initial collection was contaminated. Tx Ceftriaxone 1gm IV QD (08/20- Cirrhosis 2/2 ROSE 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 [place] Moderate Ascites Thrombocytopenia PLT 34 pending med rec (pt previously on propranalol 20 BID ) hep panel pending ammonia pending Plan Resume Lactulose 20 TID Acute pancreatitis Ruled out pt had recent procedure in [place] for embolization of gastric varicies, on 08/10, CTAP with no pancreatitis Lipase elevated 300s pt does endorse some mid epigastric pain, could be post procedural inflammation. -will ctm with serial physical exams Type 2 DM, insulin dependent A1c 6.5 Home regimen 35 U long acting BID , 20 U short acting tid with meals, Ozempic SC qweekly Uses freestyle merna Plan ISS Step 3 Degludec 15 HTN hold home amlodipine 10 mg PO qd iso tid iv diuresis HLD cont home atorvastatin 10 mg qhs Gout - hold home Ursodiole mg po tid iso ESRD (see above) Diabetic Neuropathy - cont home gapabentin 400 mg po qd - PT consulted, pt states that she ambulates with a 4 wheel walker and that she has fear of walking with 2 wheel walker. PHUONG Large neck circumference. pt states that she was diagnosed with phuong, but never recieved CPAP machine at home Plan Discharge with CPAP CPAP qhs prn while inpatient Chronic LBP NORCO ? at home Dispo: Tele, ongoing IV diuresis , plan for outpatient HD, CHF exaccerbation likely 2/2 ESRD Diet: Renal Diet, carb consistent Bowel Reg: Lactulose 20 TID VTE ppx: hold heparin so temp hd cath can be placed, and in setting of thrombocytopenia <50. SCD GI ppx: protonix 40 qd Code status: FULL Plan discussed with my attending Dr. Gonzalez and my senior Dr. Pierre King MD PGY1
[2025-08-20] MEDS: HYDROmorphone INJ 2 MG/ML VIAL 1 MG IVP (10:21)
[2025-08-20 11:35] LABS: Glucose Estimated Average 140 mg/dL (80-131); Hemoglobin A1C 6.5 % Hgb (4.8-6.0)
--- NOTE | 2025-08-20 11:41 | PD.IMCONS ---
HPI Data of Consult Requesting Physician: Darian Gonzalez MD Primary Care Provider: Flip Ferraro MD Consult Narrative History of present illness: 55F with history of HTN, biliary cirrhosis, CDK, DM, and HFpEF (LVEF 55 to 60%) Patient seen emergency room fatigue tiredness shortness of breathPatient's troponin was minimally elevated at 0.105 0.12Cardiology consultation requested EKG shows nonspecific ST-T wave changes cc:: cc: Darian Gonzalez MD Meds Home Medications and Allergies Home Medications ?Medication ?Instructions ?Recorded ?Confirmed ?Type insulin glargine 100 unit/mL (3 35 unit subcut BID 09/30/18 07/25/25 History mL) subcutaneous pen (Basaglar KwikPen U-100 Insulin) ursodiol 300 mg capsule 300 mg PO TID 09/30/18 07/25/25 History ascorbic acid (vitamin C) 1,000 mg 1,000 mg PO DAILY 10/27/23 07/25/25 History tablet (Vitamin C) atorvastatin 10 mg tablet 10 mg PO HS 10/27/23 07/25/25 History cholecalciferol (vitamin D3) 25 25 mcg PO QDAY 10/27/23 07/25/25 History mcg (1,000 unit) tablet (Vitamin D3) gabapentin 400 mg capsule 400 mg PO BID 10/27/23 07/25/25 History propranolol 10 mg tablet 10 mg PO BID 10/27/23 07/25/25 History medroxyprogesterone 10 mg tablet 10 mg PO 3XD 01/05/25 07/25/25 History semaglutide 0.25 mg or 0.5 mg (2 0.5 mg subcut .abdullahi week 01/05/25 07/25/25 History mg/3 mL) subcutaneous pen injector (Ozempic) zinc sulfate 50 mg zinc (220 mg) 50 mg PO QDAY 01/05/25 07/25/25 History capsule hydrocodone 10 mg-acetaminophen 1 tab PO Q12H PRN pain 05/08/25 07/25/25 History 325 mg tablet medroxyprogesterone 5 mg tablet 5 mg PO DAILY 05/08/25 07/25/25 History Allergies Allergy/AdvReac Type Severity Reaction Status Date / Time tramadol Allergy Severe Hives Verified 08/19/25 20:21 ciprofloxacin Allergy Mild Rash Verified 08/19/25 20:21 hydroxyzine Allergy Headache Verified 08/19/25 20:21 Iodinated Contrast Media Allergy Verified 08/19/25 20:21 Exam Vital Signs Temp Pulse Resp BP Pulse Ox O2 Del Method 98.3 F 80 16 142/58 H 97 Room Air 08/20/25 11:24 08/20/25 11:24 08/20/25 11:24 08/20/25 11:24 08/20/25 11:24 08/20/25 11:24 Routine HEENT Exam Head: Present normocephalic and atraumatic Eye: Present EOMI and PERRL ENT: Present mucous membranes moist Routine Neck Exam Neck: Present supple and trachea midline Routine Respiratory Exam Respiratory: Present chest non-tender, lungs clear, normal breath sounds and no resp distress Routine Cardiovascular Exam Cardiovascular: Present RRR Routine Abdominal Exam Abdominal: Present soft and normoactive bowel sounds Routine Extremities Exam Extremities: Present full ROM Routine Skin Exam Skin: Present intact, dry and warm Routine Neurological Exam Neurological: Present alert, oriented X3 and CN II-XII intact Routine Psychiatric Exam Psychiatric: Present normal affect and normal thought process Results Labs 08/20/25 09:18 08/19/25 21:48 Labs: Short CBC 08/19/25 08/20/25 Range/Units 21:48 09:18 WBC 4.4 3.0 L (3.6-11.0) Thou/mm3 Hgb 7.0 L 7.6 L (12.0-16.0) g/dL Hct 22.3 L 23.4 L (36.0-46.0) % Plt Count 43 L D 34 L D (140-440) Thou/mm3 BMP 08/19/25 21:48 Sodium 135 L Potassium 5.5 H Chloride 105 Carbon Dioxide 16.0 L BUN 87 H Creatinine 10.4 H* Glucose 206 H Calcium 8.7 Cardiac Enzymes 08/19/25 08/20/25 Range/Units 21:48 09:18 Troponin I 0.106 H* 0.124 H* (0.0-0.045) ng/mL Liver Function 08/19/25 Range/Units 21:48 Total Bilirubin 1.2 (0.3-1.2) mg/dL AST 45 H (0-34) U/L ALT 24 (10-49) U/L Alkaline Phosphatase 71 (46-116) U/L Albumin 3.1 L (3.5-5.0) gm/dL Urine 08/19/25 Range/Units 21:50 Urine Color Yellow (Lt Yel-Yel) Urine Clarity Turbid A (Clear/Hazy) Urine pH 5.5 (5.0-7.0) Ur Specific Cord 1.019 (1.001-1.035) Urine Protein Trace (Neg - Trace) Urine Glucose (UA) Negative (Negative) ABG Interpretation ABG results: 08/20/25 09:18 VBG pH 7.38 VBG pCO2 29 L VBG pO2 72 H VBG Base Excess -8 L Assessment and Plan Assessment and plan (1) Elevated troponin: Status: Acute (2) Acute on chronic kidney failure: Status: Acute (3) Anasarca: Status: Acute (4) Acute renal failure: Status: Acute Additional Assessment & Plan Additional Plan: Likely demand ischemia causing borderline elevation of troponin Echocardiographic exam done in December shows normal LV function Continue medical management
[2025-08-20 13:23] LABS: INR 1.4 (0.9-1.3); Prothrombin Time 14.7 Seconds (9.0-12.2)
--- NOTE | 2025-08-20 13:48 | ESCONSULT_ITS ---
HPI Data of Consult Requesting Physician: Darian Gonzalez MD Admitting Provider: Darian Gonzalez MD Attending Provider: Darian Gonzalez MD Primary Care Provider: Flip Ferraro MD Consult Narrative Reason for consult: thrombocytopenia History of present illness: ICU team was asked to see 55-year-old female with Hypertension, thrombocytopenia, cirrhosis, CKD stage IV, insulin-dependent type 2 diabetes, necrotizing fasciitis, and HFpEF (LVEF 55 to 60%) after the patient presented to the ER due to increasing shortness of breath and was found to have thrombocytopenia with platelets of 34. On assessment patient stated that since August 10 she has been feeling more shortness of breath worsening when she lays flat and she states that she has been having fluid overload since then. Patient stated that she has been mostly bedbound also around this time and that her urine output has also decreased during this time. She also mentioned that she was on Lasix 40 mg daily for around the last month and has been taking it daily. On further assessment patient stated that she also had a procedure done where they went in her right groin area for some procedure and the veins, but patient is unable to accurately state what was done as this was done in [place] and she does not remember what it was for. She then mentioned that she was supposed to get TIPS, but that her flight engineer instructor stated that she had 2 low platelets in order to do the procedure therefore was deferred for some time. Patient denies having any chest pain, abdominal pain, fevers, cough, or generalized weakness. Patient did mention that she has had an abscess in her groin area with self drained and currently is not draining anything. ED course: Initially came in afebrile and mildly hypertensive. Initial labs were relevant for neutropenia, anemia, thrombocytopenia, coagulopathy, JULIUS on CKD, hyperkalemia, metabolic acidosis, troponinemia, and UA was positive for bacteria. Initial imaging included venous Doppler which was negative for DVTs and abdomen/pelvis CT which shows cirrhosis, mild to moderate ascites, perigastric varices, anasarca, moderate renal scarring without hydronephrosis, and hepatic colopathy. In the ED patient got Lasix 40 x 1 and hyperkalemia cocktail. PMH: As above Social Hx: Denies any current smoking, drugs, alcohol Surgical Hx: Hysterectomy and I&D for necrotizing fasciitis ICU team was consulted due to thrombocytopenia. cc:: cc: Darian Gonzalez MD Review of Systems Review of Systems Systems Reviewed: All systems reviewed, normal except as documented Past Medical History Past Medical History CARDIAC: Positive Edema and Hypertension RESPIRATORY: Positive Sleep Apnea GASTROINTESTINAL: Positive Gastrointestinal Disorders, Cirrhosis, Esophageal Varices, Irritable Bowel and Obesity GENITOURINARY: Positive Renal Disease REPRODUCTIVE: Positive Previous Pregnancies MUSCULOSKELETAL: Positive Arthritis, Degenerative Disk Disease and Gout ENT: Positive Cataracts ENDOCRINE: Positive Endocrine Disorders HEMATOLOGIC: Positive Blood Disorders and Anemia PSYCHO/SOCIAL: Positive Depression and Anxiety OTHER HISTORY: Positive Blood Transfusions, MRSA and Measles Family History FAMILY HISTORY: Positive Family Cardiac Disorders and Family Surgery Surgical History SURGICAL: Positive Abdominal Surgery, Tubal Ligation and Section Social History SMOKING STATUS: Former smoker SECOND HAND EXPOSURE: Yes Exam Vital Signs Temp Pulse Resp BP Pulse Ox O2 Del Method 98.3 F 80 16 142/58 H 97 Room Air 08/20/25 11:24 08/20/25 11:24 08/20/25 11:24 08/20/25 11:24 08/20/25 11:24 08/20/25 11:24 Narrative Exam Gen: A&O X 3, NAD, obese HEENT: NCAT, EOMI, Pupils reactive LUX, not icteric. External ears normal. No rhinorrhea. Moist mucous membranes. Neck: Supple, full range of motion, no observable masses, No meningeal sign. Lungs: Mild respiratory distress, clear bilateral. CV: RRR, no murmurs. Abdomen: Soft, nondistended, No rebound tenderness, open wound in pubic fat pad w/o any drainage. R groin open puncture wound from previous femoral access. MSK: No joint swelling, no redness, peripheral pulses presents, 3+ peripheral edema all the way up to upper portion of the abdomen. Skin: No rashes, petechiae, lesions. Neuro: No focal neurological deficits appreciated, sensory and motor intact. Psych: Cooperative, appropriate mood and effect. Results Labs 08/20/25 09:18 08/19/25 21:48 Labs: Short CBC 08/19/25 08/20/25 Range/Units 21:48 09:18 WBC 4.4 3.0 L (3.6-11.0) Thou/mm3 Hgb 7.0 L 7.6 L (12.0-16.0) g/dL Hct 22.3 L 23.4 L (36.0-46.0) % Plt Count 43 L D 34 L D (140-440) Thou/mm3 BMP 08/19/25 08/20/25 21:48 05:17 Sodium 135 L Cancelled Potassium 5.5 H Cancelled Chloride 105 Cancelled Carbon Dioxide 16.0 L Cancelled BUN 87 H Cancelled Creatinine 10.4 H* Cancelled Glucose 206 H Cancelled Calcium 8.7 Cancelled Cardiac Enzymes 08/19/25 08/20/25 Range/Units 21:48 09:18 Troponin I 0.106 H* 0.124 H* (0.0-0.045) ng/mL Liver Function 08/19/25 Range/Units 21:48 Total Bilirubin 1.2 (0.3-1.2) mg/dL AST 45 H (0-34) U/L ALT 24 (10-49) U/L Alkaline Phosphatase 71 (46-116) U/L Albumin 3.1 L (3.5-5.0) gm/dL Urine 08/19/25 Range/Units 21:50 Urine Color Yellow (Lt Yel-Yel) Urine Clarity Turbid A (Clear/Hazy) Urine pH 5.5 (5.0-7.0) Ur Specific [place] 1.019 (1.001-1.035) Urine Protein Trace (Neg - Trace) Urine Glucose (UA) Negative (Negative) ABG Interpretation ABG results: 08/20/25 09:18 VBG pH 7.38 VBG pCO2 29 L VBG pO2 72 H VBG Base Excess -8 L Quality Measures Quality Measures none Medications Home Medications and Allergies Home Medications ?Medication ?Instructions ?Recorded ?Confirmed ?Type insulin glargine 100 unit/mL (3 35 unit subcut BID 11/1707/25/25 History mL) subcutaneous pen (Basaglar KwikPen U-100 Insulin) ursodiol 300 mg capsule 300 mg PO TID 09/30/1807/25 History ascorbic acid (vitamin C) 1,000 mg 1,000 mg PO DAILY 0 10/27/23 07/25/25 History tablet (Vitamin C) atorvastatin 10 mg tablet 10 mg PO HS 10/27/23 5 History cholecalciferol (vitamin D3) 25 25 mcg PO QDAY 4 07/25/25 History mcg (1,000 unit) tablet (Vitamin D3) gabapentin 400 mg capsule 400 mg PO BID 10/27/2307/25 History propranolol 10 mg tablet 10 mg PO BID 10/27/23 History medroxyprogesterone 10 mg tablet 10 mg PO 3XD 01/05/25 07/25/25 History semaglutide 0.25 mg or 0.5 mg (2 0.5 mg subcut .abdullahi orozco 01/05/25 07/25/25 History mg/3 mL) subcutaneous pen injector (Ozempic) zinc sulfate 50 mg zinc (220 mg) 50 mg PO QDAY 5 07/25/25 History capsule hydrocodone 10 mg-acetaminophen 1 tab PO Q12H PRN pain 05/08/25 07/25/25 History 325 mg tablet medroxyprogesterone 5 mg tablet 5 mg PO DAILY 05/08/25 07/25/25 History Allergies Allergy/AdvReac Type Severity Reaction Status Date / Time tramadol Allergy Severe Hives Verified 08/19/25 20:21 ciprofloxacin Allergy Mild Rash Verified 08/19/25 20:21 hydroxyzine Allergy Headache Verified 08/19/25 20:21 Iodinated Contrast Media Allergy Verified 08/19/25 20:21 Visit Medications Acetaminophen (Acetaminophen 325 Mg Tablet) 650 mg PO Q6H PRN PRN Reason: Fever >100.4 and pain Stop: 09/19/25 10:07 Dextrose (Dextrose 50%-Water Inj 50 Ml Syringe) 25 ml IV Q15MIN PRN PRN Reason: BG 50-70 responsive npo pt Stop: 09/19/25 10:13 Dextrose (Dextrose 50%-Water Inj 50 Ml Syringe) 50 ml IV Q15MIN PRN PRN Reason: BG <50 OR BG <70 & pt unresponsive Stop: 09/19/25 10:13 Glucagon (Glucagon Inj 1 Mg Vial) 1 mg IM Q15MIN PRN PRN Reason: BG <70, and no IV access Ceftriaxone Sodium/Dextrose (Rocephin/D5w 1gm Iv Premix) 1 gm in 50 mls @ 100 mls/hr IV QDAY SHERYL Stop: 08/27/25 13:04 Insulin Degludec (Insulin Degludec 5 Unit/0.05 Ml (Per 5 Units)) 15 unit [facility] Stop: 09/19/25 20:59 Insulin Human Lispro (Insulin Lispro (Admelog) 1 Unit/0.01 Ml Unit) 0 unit [facility]; Protocol Stop: 09/19/25 11:29 Last Admin: 08/20/25 11:59 Dose: Not Given Ondansetron HCl (Ondansetron Inj 2 Mg/Ml Inj 2 Ml) 4 mg IVP Q6H PRN; Protocol PRN Reason: NAUSEA OR VOMITING Stop: 09/19/25 10:07 Pantoprazole Sodium (Pantoprazole Inj 40 Mg Vial) 40 mg IVP QDAY [facility] Stop: 09/19/25 10:14 Last Admin: 08/20/25 11:59 Dose: 40 mg Discontinued Medications Al Hydrox/Mg Hydrox/Simethicone (Mg Hyd/Al Hyd/[place] (Maalox Reg) Susp 30 Ml Udc) 30 ml PO X1 ONE Stop: 08/20/25 05:17 Last Admin: 08/20/25 05:36 Dose: 30 ml Calcium Gluconate (Calcium Gluconate 10% Inj 1 Gm/10 Ml Vial) 1 gm IV X1 ONE Stop: 08/20/25 09:02 Last Admin: 08/20/25 09:41 Dose: 1 gm Dextrose (Dextrose 50%-Water Inj 50 Ml Syringe) 50 ml IV X1 ONE Stop: 08/20/25 09:02 Last Admin: 08/20/25 09:42 Dose: 50 ml Furosemide (Furosemide Inj 10 Mg/Ml 4ml Vial) 40 mg IVP X1 ONE Stop: 08/20/25 00:56 Last Admin: 08/20/25 01:27 Dose: 40 mg Hydromorphone HCl (Hydromorphone Inj 2 Mg/Ml Vial) 1 mg IVP X1 ONE Stop: 08/20/25 10:09 Last Admin: 08/20/25 10:21 Dose: 1 mg Insulin Human Regular (Insulin Hum Regular 1 Unit/0.01 Ml (Per Unit)) 5 unit IV X1 ONE Stop: 08/20/25 09:02 Last Admin: 08/20/25 09:40 Dose: 5 unit Lidocaine HCl (Lidocaine Viscous 2% 15 Ml Udc) 15 ml PO X1 ONE Stop: 08/20/25 05:17 Last Admin: 08/20/25 05:36 Dose: 15 ml Sodium Polystyrene Sulfonate (Sod Polystyrene Sulfon Susp 15 Gm/60 Ml Btl) 30 gm PO X1 ONE Stop: 08/20/25 09:02 Last Admin: 08/20/25 09:41 Dose: 30 gm Tuberculin PPD (Tuberculin Ppd Inj 5 Unit/0.1 Ml Dose) 5 unit ID X1 ONE Stop: 08/20/25 09:14 Assessment & Plan Plan 55-year-old female with Hypertension, thrombocytopenia, cirrhosis, CKD stage IV, insulin-dependent type 2 diabetes, necrotizing fasciitis, and HFpEF (LVEF 55 to 60%) admitted to the telemetry floors due to anasarca as well as acute renal failure. Neurology: No active disease Cardiovascular: #Acute decompensated heart failure exacerbation #Anasarca #Hx of HFpEF (EF 55 to 60%) Patient's last echo on 12/2024 that showed an EF of 55 to 60% Patient states that around August 10 she started feeling worsening shortness of breath and she is unaware when her leg started to swell. On physical exam patient had 3+ peripheral edema from the feet all the way up to the upper part of the abdomen as well as dyspnea. BNP was 295 Bedside echo showed good contractility of the heart with no visible wall motion abnormalities nor signs of tamponade or PE. Recommendations as follows: Aggressive diuresis Strict VIVEK's Fluid restrictions Daily weights close monitoring of patient's renal function #NSTEMI likely type II Patient troponins were 0.106 and up trended to 0.124 Patient denies any chest pain EKG did not show any ST elevations Likely secondary to CHF exacerbation Follow-up on repeat troponins Respiratory #Dyspnea Patient was supposedly having some difficulty breathing, but was saturating well on room air Likely in the setting of CHF exacerbation versus obesity Chest x-ray showed vascular congestion chest x-ray showed vascular congestion Recommendations as follows: Treat underlying CHF exacerbation and fluid overload status GI #Hx of cirrhosis Patient does have a history of cirrhosis and currently sees a flight engineer instructor as outpatient AST mildly elevated at 45 Follow-up with daily LFTs Renal #Acute renal failure #Oliguria 3Hx of CKD IV Patient does have a history of CKD stage IV Patient stated that since August 10 she has been having decreased urine output Patient's creatinine was 10.4 from her baseline around 3.4 Could be secondary to CHF exacerbation due to fluid overload status versus use of daily diuretics versus less likely worsening kidney function from diabetic nephropathy Patient does have good urine output and had around 800 cc of urine during assessment Recommendations as follows: Diuresis Strict VIVEK's Nephrology consult Possibility of hemodialysis catheter placement due to possibility of needing hemodialysis #Hyperkalemia Patient potassium was 5.5 Likely in the setting of acute renal failure Recommendations to follow Repeat renal panel Consider hemodialysis if worsening hyperkalemia refractory to hyperkalemia cocktail #Non-anion gap metabolic acidosis Bicarb 16 Can be in the setting of acute renal failure Follow-up with repeat renal panel No active disease Heme #Thrombocytopenia Patient's platelets were 34 today, but patient does have a history of thrombocytopenia for which she follows a flour broker outpatient Platelets in the past have been as low as 13 Likely in the setting of cirrhosis Recommendations as follows: Consider transfusing if patient has any signs of active bleeding or is due for any surgical interventions Can consider steroids if concern for ITP vs desmopressin Follow-up on daily CBCs #Normocytic normochromic anemia Patient's hemoglobin 7.6 and baseline is around 7-8 No active signs of bleeding Could be likely secondary to anemia of chronic disease Follow-up on daily CBCs #Leukopenia WBC 3 Likely secondary to chronic disease Follow-up on daily CBCs Endo #Hx of IDDM Continue with degludec and ISS hypoglycemia protocol ID #Hx of necrotizing fasciitis #Abscess of groin fat pad Patient does have an abscess which appears to have ruptured by itself on the groin fat pad No purulent discharge visualized Patient has not spiked any fevers Given history of necrotizing fasciitis should consider if patient deteriorates Recommendation as follows Continue with antibiotic coverage, consider broadening if patient deteriorates Closely monitor for any changes including discharge or expansion of abscess. MSK No active disease Lines: PIV Drips: none Vent: none Diet: Renal and carb consistent DVT prophylaxis: No chemical prophylaxis in the setting of thrombocytopenia and low hemoglobin CODE STATUS: Full code Reason of hospitalization: Patient admitted due to anasarca and acute renal failure Thank you for allowing us to be part of the patient's care. ICU team will sign off, please feel free to reach out if any further questions. Case disclosed with Attending Dr. Vidal Hernandez PGY2 Disclaimer: Even though this this note was dictated by speech recognition and even though it was carefully revised there may still be minor errors in promos executive producer due to voice recognition software.
[2025-08-20] MEDS: cefTRIAXone/D5w 1gm IV premix 1 GM/50 ML BAG IV (15:50)
[2025-08-20 16:14] LABS: Ammonia 138 uMol/L (11-32)
[2025-08-20 16:40] LABS: Albumin, Serum 3.2 gm/dL (3.5-5.0); Anion Gap 13 (7-16); BUN/Creatinine Ratio 9 Ratio (12-20); Blood Urea Nitrogen 98 mg/dL (9-23); Calcium 8.3 mg/dL (8.3-10.6); Calcium (Corrected) 8.9 mg/dL (8.5-10.1); Carbon Dioxide 16.7 mMol/L (20.0-31.0); Chloride 108 mMol/L (98-107); Creatinine (Component) 10.7 mg/dL (0.6-1.3); Estimated Creatinine Clearance 7.7 mL/min (>60); Glucose 165 mg/dL (74-106); Osmolality,Calculated 310 (275-295); Potassium 5.5 mMol/L (3.4-5.1); Sodium 138 mMol/L (136-145); eGFR 4 See Note
[2025-08-20 16:50] LABS: Troponin I 0.118 ng/mL (0.0-0.045)
[2025-08-20 16:51] LABS: Phosphorous 10.8 mg/dL (2.4-5.1)
[2025-08-20] MEDS: TUBERCULIN PPD INJ 5 UNIT/0.1 ML DOSE ID (17:57)
[2025-08-20 20:56] LABS: Albumin, Serum 3.0 gm/dL (3.5-5.0); Anion Gap 13 (7-16); BUN/Creatinine Ratio 9 Ratio (12-20); Blood Urea Nitrogen 99 mg/dL (9-23); Calcium 8.4 mg/dL (8.3-10.6); Calcium (Corrected) 9.2 mg/dL (8.5-10.1); Carbon Dioxide 16.9 mMol/L (20.0-31.0); Chloride 107 mMol/L (98-107); Creatinine (Component) 10.6 mg/dL (0.6-1.3); Estimated Creatinine Clearance 7.7 mL/min (>60); Glucose 203 mg/dL (74-106); Osmolality,Calculated 310 (275-295); Potassium 5.1 mMol/L (3.4-5.1); Sodium 137 mMol/L (136-145); eGFR 4 See Note
[2025-08-20 21:27] LABS: Phosphorous 10.4 mg/dL (2.4-5.1)
[2025-08-20] MEDS: GABAPENTIN 100 MG CAPSULE 400 MG PO (21:29)
[2025-08-20] MEDS: INSULIN DEGLUDEC 5 UNIT/0.05 ML (PER 5 UNITS) 15 UNIT SC (21:29)
[2025-08-20] MEDS: LACTULOSE SYRUP 20 GM/30 ML UDC PO (21:30)
[2025-08-20] MEDS: PROPRANOLOL 10 MG TABLET PO (21:30)
[2025-08-21] VITALS (15 sets, daily range): BP systolic 119–147; BP diastolic 48–61; PULSE 67–99; RESP 14–98; TEMP 36.1–36.6; O2SAT 92–100; BMI 63.1
[2025-08-21 01:14] LABS: Albumin, Serum 3.0 gm/dL (3.5-5.0); Anion Gap 14 (7-16); BUN/Creatinine Ratio 8 Ratio (12-20); Blood Urea Nitrogen 87 mg/dL (9-23); Calcium 8.4 mg/dL (8.3-10.6); Calcium (Corrected) 9.2 mg/dL (8.5-10.1); Carbon Dioxide 16.8 mMol/L (20.0-31.0); Chloride 106 mMol/L (98-107); Creatinine (Component) 10.6 mg/dL (0.6-1.3); Estimated Creatinine Clearance 7.7 mL/min (>60); Glucose 183 mg/dL (74-106); Osmolality,Calculated 305 (275-295); Potassium 5.0 mMol/L (3.4-5.1); Sodium 137 mMol/L (136-145); eGFR 4 See Note
[2025-08-21 01:24] LABS: Phosphorous 10.6 mg/dL (2.4-5.1)
[2025-08-21 01:26] LABS: Troponin I 0.111 ng/mL (0.0-0.045)
[2025-08-21] MEDS: LACTULOSE SYRUP 20 GM/30 ML UDC PO ×3 (05:17→21:40)
[2025-08-21] MEDS: FUROSEMIDE INJ 10 MG/ML 4ML VIAL 40 MG IVP ×3 (05:17→21:40)
[2025-08-21 05:47] LABS: Basophils # (Auto) 0.0 Thou/mm3 (0.0-0.2); Basophils % (Auto) 0 % (0-2.5); Eosinophils # (Auto) 0.0 Thou/mm3 (0.0-0.5); Eosinophils % (Auto) 1 % (0-10); Hematocrit 23.4 % (36.0-46.0); Immature Granulocytes Auto 0.06 Thou/mm3 (0.00-0.00); Lymphocytes # (Auto) 0.4 Thou/mm3 (1.0-4.8); Lymphocytes % (Auto) 10 % (10-50); Mean Corpuscular HGB Conc 32.5 g/dl (31.0-37.0); Mean Corpuscular Hemoglobin 31.1 pg (25.0-35.0); Mean Corpuscular Volume 96 fL (80-100); Monocytes # (Auto) 0.4 Thou/mm3 (0.0-0.8); Monocytes % (Auto) 11 % (0-12); Neutrophils # (Auto) 2.9 Thou/mm3 (1.8-7.7); Neutrophils % (Auto) 76 % (37-80); Nucleated Red Blood Cell # 0.00 Thou/mm3 (0.00-0.00); Nucleated Red Blood Cell % 0 /100 WBC (0); RDW Standard Deviation 57.9 fL (36.4-46.3); Red Blood Count 2.44 Miln/mm3 (4.00-5.20); White Blood Count 3.8 Thou/mm3 (3.6-11.0)
[2025-08-21 05:48] LABS: Hemoglobin 7.6 g/dL (12.0-16.0); Platelet Count 34 Thou/mm3 (140-440)
[2025-08-21 06:31] LABS: Alanine Aminotransferase 21 U/L (10-49); Albumin, Serum 3.0 gm/dL (3.5-5.0); Albumin/Globulin Ratio 0.9 (1.2-2.2); Alkaline Phosphatase 56 U/L (46-116); Anion Gap 12 (7-16); Aspartate Amino Transferase 38 U/L (0-34); BUN/Creatinine Ratio 8 Ratio (12-20); Bilirubin,Total 1.1 mg/dL (0.3-1.2); Blood Urea Nitrogen 89 mg/dL (9-23); Calcium 8.3 mg/dL (8.3-10.6); Calcium (Corrected) 9.1 mg/dL (8.5-10.1); Carbon Dioxide 15.3 mMol/L (20.0-31.0); Chloride 109 mMol/L (98-107); Creatinine (Component) 10.8 mg/dL (0.6-1.3); Estimated Creatinine Clearance 8.6 mL/min (>60); Globulin 3.5 gm/dL (2.3-3.5); Glucose 180 mg/dL (74-106); Magnesium 2.6 mg/dL (1.6-2.6); Osmolality,Calculated 304 (275-295); Potassium 5.0 mMol/L (3.4-5.1); Sodium 136 mMol/L (136-145); Total Protein 6.5 gm/dL (5.7-8.2); eGFR 4 See Note
[2025-08-21 06:32] LABS: Phosphorous 11.3 mg/dL (2.4-5.1)
[2025-08-21 06:34] LABS: Troponin I 0.097 ng/mL (0.0-0.045)
[2025-08-21 06:43] LABS: Slide Review Platelets confirmed
--- NOTE | 2025-08-21 07:13 | ESPR_ITS ---
<Statement entered by Darian Gonzalez MD - 08/30/25 08:33> I reviewed above note and agree with findings and plans. I have also personally examined the patient with medicine team and went over assessment and plan with medical team including international freight forwarder and resident physician. <Statement entered by Nydia Jay MD - 08/21/25 16:21> Pt is seen at bedside, reports significant improvement in shortness of breath, currently saturating on room air. Pt is net negative 1.2L. Will continue IV diuresis, LE pitting has improved to 2+ today.Platelet count is 34, pt is schedule to get tunneled dialysis cath tomorrow by IR then will undergo 3 sessions of dialysis before discharge. Patient was seen and examined by me personally. I have directly supervised and reviewed documentation by the team resident and agree with its findings. ------- Plan of care was discussed with the attending, Dr. Lisa Jay, PGY-2 Documentation for date of: 08/21/25 Subjective Subjective Interval history: NAEO. Patient reports improved shortness of breath. Denies chest pain, abdominal pain, LE pain. Continues to have b/l LE swelling Net negative -1045 mL, making urine Exam Vital Signs Temp Pulse Resp BP Pulse Ox O2 Del Method 97.0 F 71 19 136/57 H 96 Room Air 08/21/25 04:00 08/21/25 05:17 08/21/25 04:00 08/21/25 05:17 08/21/25 04:00 08/21/25 04:00 Narrative Exam GENERAL: Short of breath laying on her left side. AAO x3, HEENT: Head AT/ NC. Mucous membranes moist. PERRL. NECK: Supple, no lymphadenopathy, ample anterior soft tissue, large neck circumference CARDIOVASCULAR: RRR. Normal S1/S2, 2+ pitting edema of bilateral LEs. L>R to the bilateral knees. RESPIRATORY: Bilateral crackles on auscultation (mildly improved from previous exam) GASTROINTESTINAL: Abdomen obese soft, non tender no palpable masses. Bowel sounds present MUSCULOSKELETAL:? No cyanosis or edema, no visible joint swelling. NEUROLOGICAL: CN II-XII grossly intact. No focal deficits. Sensation intact, symmetric. PSYCHIATRIC: Awake and alert, not agitated, normal mood and affect. SKIN: No obvious rashes, no jaundice, normal turgor. Objective Labs 08/21/25 05:12 08/21/25 05:12 Labs: Laboratory Results - last 24 hr 08/19/25 08/20/25 08/20/25 23:44 00:25 05:17 WBC RBC Hgb Hct MCV MCH MCHC RDW Std Deviation Plt Count Neut % (Auto) Lymph % (Auto) [place] % (Auto) Eos % (Auto) Baso % (Auto) Neut # (Auto) Lymph # (Auto) [place] # (Auto) Eos # (Auto) Baso # (Auto) Immature Gran # (Auto) Absolute Nucleated RBC Immature Gran % Nucleated RBC % PT INR VBG pH VBG pCO2 VBG pO2 VBG O2 Sat (Sergio) VBG Base Excess Sodium 137 Cancelled Potassium 5.0 D Cancelled Chloride 106 Cancelled Carbon Dioxide 16.8 L Cancelled Anion Gap 14 Cancelled BUN 87 H Cancelled Creatinine 10.6 H* Cancelled Estim Creat Clear Calc 7.7 L Cancelled eGFR 4 L* Cancelled BUN/Creatinine Ratio 8 L Cancelled Glucose [address] Glu mg/dL Hemoglobin A1c Calculated Osmolality 305 H Cancelled Lactic Acid Calcium 8.4 Cancelled Corrected Calcium 9.2 Phosphorus 10.6 H Magnesium Total Bilirubin AST ALT Alkaline Phosphatase Ammonia Troponin I 0.111 H* Total Protein Albumin 3.0 L Globulin Albumin/Globulin Ratio Lipase Cancelled Misc Test Result Blood Type A Negative Antibody Screen NEGATIVE Crossmatch See Detail Blood Bank Wristband ID Yes Blood Bank Comment PLATP Ready 08/20/25 08/20/25 08/20/25 09:18 15:41 20:08 WBC 3.0 L RBC 2.49 L Hgb 7.6 L Hct 23.4 L MCV 94 MCH 30.5 MCHC 32.5 RDW Std Deviation 55.2 H Plt Count 34 L D Neut % (Auto) 68 Lymph % (Auto) 14 [place] % (Auto) 16 H Eos % (Auto) 2 Baso % (Auto) 0 Neut # (Auto) 2.1 Lymph # (Auto) 0.4 L [place] # (Auto) 0.5 Eos # (Auto) 0.1 Baso # (Auto) 0.0 Immature Gran # (Auto) 0.04 H Absolute Nucleated RBC 0.00 Immature Gran % 1 H Nucleated RBC % 0 PT 14.7 H INR 1.4 H VBG pH 7.38 VBG pCO2 29 L VBG pO2 72 H VBG O2 Sat (Sergio) 93 L VBG Base Excess -8 L Sodium 138 137 Potassium 5.5 H D 5.1 Chloride 108 H 107 Carbon Dioxide 16.7 L 16.9 L Anion Gap 13 13 BUN 98 H 99 H Creatinine 10.7 H* 10.6 H* Estim Creat Clear Calc 7.7 L 7.7 L eGFR 4 L* 4 L* BUN/Creatinine Ratio 9 L 9 L Glucose [address] Glu mg/dL 140 H Hemoglobin A1c 6.5 H Calculated Osmolality 310 H 310 H Lactic Acid 1.4 Calcium 8.3 8.4 Corrected Calcium 8.9 9.2 Phosphorus 10.8 H 10.4 H Magnesium Total Bilirubin AST ALT Alkaline Phosphatase Ammonia 138 H* Troponin I 0.124 H* 0.118 H* Total Protein Albumin 3.2 L 3.0 L Globulin Albumin/Globulin Ratio Lipase Misc Test Result Platelets confirmed Blood Type Antibody Screen Crossmatch Blood Bank Wristband ID Blood Bank Comment 08/21/25 05:12 WBC 3.8 RBC 2.44 L Hgb 7.6 L Hct 23.4 L MCV 96 MCH 31.1 MCHC 32.5 RDW Std Deviation 57.9 H Plt Count 34 L Neut % (Auto) 76 Lymph % (Auto) 10 [place] % (Auto) 11 Eos % (Auto) 1 Baso % (Auto) 0 Neut # (Auto) 2.9 Lymph # (Auto) 0.4 L [place] # (Auto) 0.4 Eos # (Auto) 0.0 Baso # (Auto) 0.0 Immature Gran # (Auto) 0.06 H Absolute Nucleated RBC 0.00 Immature Gran % 2 H Nucleated RBC % 0 PT INR VBG pH VBG pCO2 VBG pO2 VBG O2 Sat (Sergio) VBG Base Excess Sodium 136 Potassium 5.0 Chloride 109 H Carbon Dioxide 15.3 L Anion Gap 12 BUN 89 H Creatinine 10.8 H* Estim Creat Clear Calc 8.6 L eGFR 4 L* BUN/Creatinine Ratio 8 L Glucose [address] Glu mg/dL Hemoglobin A1c Calculated Osmolality 304 H Lactic Acid Calcium 8.3 Corrected Calcium 9.1 Phosphorus 11.3 H Magnesium 2.6 Total Bilirubin 1.1 AST 38 H ALT 21 Alkaline Phosphatase 56 D Ammonia Troponin I 0.097 H* Total Protein 6.5 Albumin 3.0 L Globulin 3.5 Albumin/Globulin Ratio 0.9 L Lipase Misc Test Result Platelets confirmed Blood Type Antibody Screen Crossmatch Blood Bank Wristband ID Blood Bank Comment ABG Interpretation ABG results: 08/20/25 09:18 VBG pH 7.38 VBG pCO2 29 L VBG pO2 72 H VBG Base Excess -8 L Quality Measures Quality Measures none Assessment & Plan Assessment Current Active Medications: Generic Name Dose Route Start Last Admin Trade Name Freq PRN Reason Stop Dose Admin Acetaminophen 650 mg 08/20/25 10:08 Acetaminophen 325 Mg Tablet PO 09/19/25 10:07 Q6H PRN Fever >100.4 and pain Hydrocodone Bitart/Acetaminophen 1 tab 08/20/25 22:40 08/20/25 22:57 Hydrocodone/Apap 10/325 Tab PO 08/25/25 17:05 1 tab Q6HR PRN Administration PAIN Dextrose 25 ml 08/20/25 10:14 Dextrose 50%-Water Inj 50 Ml Syringe IV 09/19/25 10:13 Q15MIN PRN BG 50-70 responsive npo pt Dextrose 50 ml 08/20/25 10:14 Dextrose 50%-Water Inj 50 Ml Syringe IV 09/19/25 10:13 Q15MIN PRN BG <50 OR BG <70 & pt unresponsive Furosemide 40 mg 08/20/25 14:00 08/21/25 05:17 Furosemide Inj 10 Mg/Ml 4ml Vial IVP 09/19/25 13:59 40 mg TID SHERYL Administration Gabapentin 400 mg 08/20/25 21:00 08/20/25 21:29 Gabapentin 100 Mg Capsule PO 09/19/25 20:59 400 mg BID SHERYL Administration Glucagon 1 mg 08/20/25 10:14 Glucagon Inj 1 Mg Vial IM Q15MIN PRN BG <70, and no IV access Ceftriaxone Sodium/Dextrose 1 gm in 50 mls @ 100 mls/hr 08/20/25 13:05 08/20/25 15:50 Rocephin/D5w 1gm Iv Premix IV 08/27/25 13:04 100 mls/hr QDAY SHERYL Administration Insulin Degludec 15 unit 08/20/25 21:00 08/20/25 21:29 Insulin Degludec 5 Unit/0.05 Ml (Per 5 Units) SC 09/19/25 20:59 15 unit HS SHERYL Administration Insulin Human Lispro 0 unit 08/20/25 11:30 08/20/25 16:54 Insulin Lispro (Admelog) 1 Unit/0.01 Ml Unit SC 09/19/25 11:29 Not Given AC SHERYL Protocol Lactulose 20 gm 08/20/25 22:00 08/21/25 05:17 Lactulose Syrup 20 Gm/30 Ml Udc PO 09/19/25 21:59 20 gm TID SHERYL Administration Protocol Ondansetron HCl 4 mg 08/20/25 10:08 Ondansetron Inj 2 Mg/Ml Inj 2 Ml IVP 09/19/25 10:07 Q6H PRN NAUSEA OR VOMITING Protocol Pantoprazole Sodium 40 mg 08/21/25 09:00 Pantoprazole 40 Mg Tablet PO 09/20/25 08:59 QDAY SHERYL Propranolol HCl 10 mg 08/20/25 21:00 08/20/25 21:30 Propranolol 10 Mg Tablet PO 09/19/25 20:59 10 mg BID SHERYL Administration Sodium Bicarbonate 650 mg 08/21/25 14:00 Sodium Bicarbonate 650 Mg Tablet PO 09/20/25 13:59 TID SHERYL Plan Ms Hopper is a 55 year old woman with a hx significant for advanced CKD that has now progressed to ESRD, HFpEF 55-60 12/2024, HLD, HTN, who presented with malaise and shortness of breath, found to be significantly volume overloaded, with elevated BUN and Cr, admitted for dialysis vs diuresis, given pt with severe thrombocytopenia 2/2 cirrhosis defer placing temp hd line.Nephrology consulted, Dr Neil. Plan for IV diuresis. Hx of Advanced CKD, now with ESRD Chronic Normocytic Anemia HyperKalemia Hyperphosphatemia AGAMA Worsening BUN, low bicarb, electrolyte abnormalities Plan: - Pending PPD TB skin test - Dr. Neil consulted, appreciate recs - IR to be placed TDC 08/22, then 3 days dialysis followed by outpatient dialysis - Continue IV lasix as below - sodium bicarb tab 650 mg PO TID Acute CHF exaccerbation HFpEF (echo 12/2024 w EF 55-60%) Type II NSTEMI, troponins downtrending Weight on admission 129.27 kg Likely 2/2 ESRD (see above) BNP 200s Trend troponin, till peaked : 0.106-->0.124 --> 0.097 Plan: - Cardiology Consulted, ruby Peterson recs - Strict I and O - Daily Weights - Lasix 40 IV TID - will likely improve with HD (see ESRD above) UTI - r/o UA with Turbid urine, with positive leukocyte esterase and wbc and 1+ bacteria, Repeat UA with reflex UCx, initial collection was contaminated. 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 [place] Moderate Ascites Coagulopathy Hyperammonemia Thrombocytopenia PLT 34 Ammonia 138 PT 14.7, INR 1.4 Plan: - Lactulose 20 TID - Pending hepatitis panel Acute pancreatitis Ruled out pt had recent procedure in [place] for embolization of gastric varicies, on 08/10, CTAP with no pancreatitis Lipase elevated 300s Plan: - will ctm with serial physical exams Type 2 DM, insulin dependent A1c 6.5 Home regimen 35 U long acting BID , 20 U short acting tid with meals, Ozempic SC qweekly Uses freestyle merna Plan: - ISS Step 3 - Degludec 15 HTN Plan: - hold home amlodipine 10 mg PO qd iso tid iv diuresis HLD Plan: - Atorvastatin 10 mg PO DHS Gout - hold home Ursodiole mg po tid iso ESRD (see above) Diabetic Neuropathy Plan: - Gabapentin 400 mg PO BID - PT consulted, pt states that she ambulates with a 4 wheel walker and that she has fear of walking with 2 wheel walker. PHUONG Large neck circumference. pt states that she was diagnosed with phuong, but never recieved CPAP machine at home Plan: - Discharge with CPAP - CPAP qhs prn while inpatient Chronic LBP Plan: - [place] 10 q6h PRN Dispo: Tele, ongoing IV diuresis , plan for outpatient HD, CHF exaccerbation likely 2/2 ESRD Diet: Renal Diet, carb consistent Bowel Reg: Lactulose 20 TID VTE ppx: hold heparin so temp hd cath can be placed, and in setting of thrombocytopenia <50. SCD GI ppx: protonix 40 qd Code status: FULL Plan discussed with my attending Dr. Gonzalez and my senior Dr. Pierre Reddy MD PGY1
[2025-08-21] MEDS: PANTOPRAZOLE 40 MG TABLET PO (08:10)
[2025-08-21] MEDS: PROPRANOLOL 10 MG TABLET PO ×2 (08:10→20:26)
[2025-08-21] MEDS: GABAPENTIN 100 MG CAPSULE 400 MG PO ×2 (08:11→20:26)
[2025-08-21] MEDS: cefTRIAXone/D5w 1gm IV premix 1 GM/50 ML BAG IV (08:11)
[2025-08-21] MEDS: INSULIN LISPRO (AdmeLOG) 1 UNIT/0.01 ML UNIT SC ×3 (11:21→20:25)
--- NOTE | 2025-08-21 12:41 | PC.NURSE ---
Spoke with patient's son about home medication list, he forgot to bring it, he stated he will bring it in the morning or this afternoon.
[2025-08-21 13:18] LABS: Collection Type, Urine Catheter
[2025-08-21] MEDS: SODIUM BICARBONATE 650 MG TABLET PO ×2 (13:33→21:40)
[2025-08-21 13:45] LABS: Bacteria,Urine Rare; Bilirubin,Urine Negative (Negative); Blood,Urine 3+ (Negative); Color,Urine Yellow (Lt Yel-Yel); Culture Indicated,Urine Not Indicated; Glucose, Urine Negative (Negative); Ketones,Urine Negative (Negative); Leukocyte Esterase,Urine Positive (Negative); Nitrite,Urine Negative (Negative); PH,Urine 5.0 (5.0-7.0); Protein,Urine 1+ (Neg - Trace); RBC,Urine 244 /hpf (0-3); Specific Gravity,Urine 1.014 (1.001-1.035); Squamous Epithelial Cell,Urine 2 /hpf (0-5); Urobilinogen,Urine Negative mg/dL (0.0-1.0); WBC,Urine 9 /hpf (0-5)
[2025-08-21 13:47] LABS: Clarity,Urine Hazy (Clear/Hazy)
--- NOTE | 2025-08-21 16:01 | PC.SS ---
Command Center Analyst (KASHIF) Adelina met with the patient and son Eduardo at bedside to complete an initial assessment and discuss a discharge plan. Patient is confused/sleepy, assessment completed with son, Eduardo. Patient is Sharonda Hopper, 55 y/o [place]utanese-speaking female residing with family at [address] [place] [address] Lesa Gaona APRIL. Patient surrogate medical decision maker is her son, Derick Dc, . Patient is unemployed. Per son, patient at baseline is independent with no DME; however, lately, due to lower extremity edema patient has not been able to ambulate. The patient's PCP is from [facility] in [place]. The patient's son is in the process of IHSS. SW educated the patient's son on Medicare and social security benefits due to ESRD on hemodialysis. Patient's d/c plan is home with family care and private transportation. Surrogate medical decision maker: Son, Derick, Discharge plan: Home Discharge round: Patient is on IV diuretics. Pending a dialysis catheter 08/22/25, do three rounds of dialysis?d/c home.
--- NOTE | 2025-08-21 16:51 | PD.NEPHCONS ---
History of Present Illness Data of Consult Consult date: 08/21/25 Requesting Physician: Darian Gonzalez MD Primary Care Provider: Flip Ferraro MD Consult Narrative History of present illness: Tele consult via face-time 55-year-old female with a past medical history of hypertension, hyperlipidemia, insulin-dependent type 2 diabetes mellitus, gout, history of severe thrombocytopenia secondary to moderate hypersplenism & Cirrhosis and CKD presented to the ED complaining of worsening shortness of breath and 3+ pitting edema in the lower extremities. Nephrology is consulted for renal failure and to arrange dialysis. Pt c/o shortness breath. Pt has volume overload. cc:: cc: Darian Gonzalez MD Review of Systems Review of Systems Systems Reviewed: All systems reviewed, normal except as documented Meds Home Medications and Allergies Home Medications ?Medication ?Instructions ?Recorded ?Confirmed ?Type insulin glargine 100 unit/mL (3 35 unit subcut BID 09/30/18 08/20/25 History mL) subcutaneous pen (Basaglar KwikPen U-100 Insulin) ursodiol 300 mg capsule 300 mg PO TID 09/30/18 08/20/25 History ascorbic acid (vitamin C) 1,000 mg 1,000 mg PO DAILY 10/27/23 08/20/25 History tablet (Vitamin C) atorvastatin 10 mg tablet 10 mg PO HS 10/27/23 08/20/25 History cholecalciferol (vitamin D3) 25 25 mcg PO QDAY 10/27/23 08/20/25 History mcg (1,000 unit) tablet (Vitamin D3) gabapentin 400 mg capsule 400 mg PO BID 10/27/23 08/20/25 History propranolol 10 mg tablet 10 mg PO BID 10/27/23 08/20/25 History medroxyprogesterone 10 mg tablet 5 mg PO HS 01/05/25 08/20/25 History semaglutide 0.25 mg or 0.5 mg (2 0.5 mg subcut .abdullahi week 01/05/25 08/20/25 History mg/3 mL) subcutaneous pen injector (Ozempic) zinc sulfate 50 mg zinc (220 mg) 50 mg PO QDAY 01/05/25 08/20/25 History capsule hydrocodone 10 mg-acetaminophen 1 tab PO Q12H PRN pain 05/08/25 08/20/25 History 325 mg tablet medroxyprogesterone 5 mg tablet 5 mg PO DAILY 05/08/25 08/20/25 History B complex-vitamin C-folic acid .ROUTE 08/20/25 History ferrous sulfate 325 mg (65 mg 325 mg PO BID 08/20/25 08/20/25 History iron) tablet,delayed release Allergies Allergy/AdvReac Type Severity Reaction Status Date / Time tramadol Allergy Severe Hives Verified 08/19/25 20:21 ciprofloxacin Allergy Mild Rash Verified 08/19/25 20:21 hydroxyzine Allergy Headache Verified 08/19/25 20:21 Iodinated Contrast Media Allergy Verified 08/19/25 20:21 Exam Vital Signs Temp Pulse Resp BP Pulse Ox O2 Del Method 97.8 F 70 18 143/59 H 100 Room Air 08/21/25 15:56 08/21/25 15:56 08/21/25 15:56 08/21/25 15:56 08/21/25 15:56 08/21/25 15:56 Narrative Exam Pt seen on face time Pt looks comfortable no acute distress edema and swelling noted Results Labs 08/22/25 05:35 08/22/25 05:35 Labs: Short CBC 08/21/25 Range/Units 05:12 WBC 3.8 (3.6-11.0) Thou/mm3 Hgb 7.6 L (12.0-16.0) g/dL Hct 23.4 L (36.0-46.0) % Plt Count 34 L (140-440) Thou/mm3 BMP 08/20/25 08/20/25 08/20/25 00:25 15:41 20:08 Sodium 137 138 137 Potassium 5.0 D 5.5 H D 5.1 Chloride 106 108 H 107 Carbon Dioxide 16.8 L 16.7 L 16.9 L BUN 87 H 98 H 99 H Creatinine 10.6 H* 10.7 H* 10.6 H* Glucose 183 H 165 H 203 H Calcium 8.4 8.3 8.4 08/21/25 05:12 Sodium 136 Potassium 5.0 Chloride 109 H Carbon Dioxide 15.3 L BUN 89 H Creatinine 10.8 H* Glucose 180 H Calcium 8.3 Cardiac Enzymes 08/20/25 08/20/25 08/20/25 Range/Units 00:25 09:18 15:41 Troponin I 0.111 H* 0.124 H* 0.118 H* (0.0-0.045) ng/mL 08/21/25 Range/Units 05:12 Troponin I 0.097 H* (0.0-0.045) ng/mL Liver Function 08/20/25 08/20/25 08/20/25 Range/Units 00:25 15:41 20:08 Total Bilirubin (0.3-1.2) mg/dL AST (0-34) U/L ALT (10-49) U/L Alkaline Phosphatase (46-116) U/L Albumin 3.0 L 3.2 L 3.0 L (3.5-5.0) gm/dL 08/21/25 Range/Units 05:12 Total Bilirubin 1.1 (0.3-1.2) mg/dL AST 38 H (0-34) U/L ALT 21 (10-49) U/L Alkaline Phosphatase 56 D (46-116) U/L Albumin 3.0 L (3.5-5.0) gm/dL Urine 08/21/25 Range/Units 13:15 Urine Color Yellow (Lt Yel-Yel) Urine Clarity Hazy (Clear/Hazy) Urine pH 5.0 (5.0-7.0) Ur Specific Indian 1.014 (1.001-1.035) Urine Protein 1+ A (Neg - Trace) Urine Glucose (UA) Negative (Negative) ABG Interpretation ABG results: 08/20/25 09:18 VBG pH 7.38 VBG pCO2 29 L VBG pO2 72 H VBG Base Excess -8 L Assessment & Plan Assessment and plan (1) Elevated troponin: Status: Acute (2) Acute on chronic kidney failure: Status: Acute Assessment and plan: Pt has worsening of renal failure Pt has advanced kidney disease recommended hemodialysis Pt consented for HD Dialysis orders are placed requested to place dialysis catheter by ER physician, but could no be done due to low platelets waiting on IR to place dialysis catheter Pt consented for dialysis risks and benefits are explained Case manage to arrange out pt dialysis (3) Anasarca: Status: Acute (4) Acute renal failure: Status: Acute
[2025-08-21] MEDS: ATORVASTATIN CALCIUM 10 MG TABLET PO (20:25)
[2025-08-21] MEDS: INSULIN DEGLUDEC 5 UNIT/0.05 ML (PER 5 UNITS) 15 UNIT SC (20:25)
[2025-08-21 21:00] LABS: Hepatitis A Antibody IgM Non Reactive (Non React); Hepatitis B Core Antibody IgM Non Reactive (Non React); Hepatitis B Surface Antigen Non Reactive (Non React); Hepatitis C Antibody Non Reactive (Non React)
[2025-08-22] VITALS (31 sets, daily range): BP systolic 96–162; BP diastolic 46–76; PULSE 66–81; RESP 15–19; TEMP 36.2–37; O2SAT 94–100; BMI 62.1
--- NOTE | 2025-08-22 | XR_ITS ---
PROCEDURE: Non-tunneled central venous catheter placement Procedural Personnel Attending physician(s): Mika Carlson MD Pre-procedure diagnosis: Renal failure, volume overload Post-procedure diagnosis: Same Indication: Performance of hemodialysis Complications: No immediate complications. PROCEDURE SUMMARY: - Venous access with ultrasound guidance (72414) - Non-tunneled central venous catheter insertion with fluoroscopic guidance (54891, [id number]) - Additional procedure(s): None PROCEDURE DETAILS: Pre-procedure History and imaging of central venous access reviewed: Yes Consent: Informed consent for the procedure including risks, benefits and alternatives was obtained and time-out was performed prior to the procedure. Preparation: The site was prepared and draped using all elements of maximal sterile barrier technique including sterile gloves, sterile gown, cap, mask, large sterile sheet, sterile ultrasound probe cover, hand hygiene and cutaneous antisepsis with chlorhexidine or a comparable alternative. Anesthesia/sedation 5 cc subcutaneous local lidocaine 1% Access Local anesthesia was administered. The vessel was sonographically evaluated and determined to be patent. Real time ultrasound was used to visualize needle entry into the vessel and a permanent image was not stored. Vein accessed: Internal jugular vein Access technique: Micropuncture set with 21 gauge needle Venography Indication for venography: Not performed Vein catheterized: Not applicable Findings: Not applicable Catheter placement The access site was dilated and the catheter was placed into the vein over a wire under fluoroscopic guidance. The catheter tip location was fluoroscopically verified and a permanent image was stored. A sterile dressing was applied. Catheter placed: VAST CATH, 13 Turkmen by 20 cm Catheter flush: Heparin 1000 units/mL Catheter securement technique: Non-absorbable suture Radiation Dose 0.9 minutes, 35.44 mGy Additional Details Estimated blood loss (mL): Less than 10 Standardized report: [email or web address] IMPRESSION: Insertion of right-sided non-tunneled dialysis/pheresis catheter, with tip in the expected location of the right atrium. PLAN: Catheter ready for immediate use. Attestation Signer name: Mika Carlson MD I attest that I was present for the entire procedure. I agree with the report as written. No unintentionally retained devices were noted upon review of the images.
[2025-08-22] MEDS: FUROSEMIDE INJ 10 MG/ML 4ML VIAL 40 MG IVP ×2 (05:32→17:40)
[2025-08-22 06:12] LABS: Basophils # (Auto) 0.0 Thou/mm3 (0.0-0.2); Basophils % (Auto) 0 % (0-2.5); Eosinophils # (Auto) 0.1 Thou/mm3 (0.0-0.5); Eosinophils % (Auto) 1 % (0-10); Hematocrit 23.1 % (36.0-46.0); Immature Granulocytes Auto 0.03 Thou/mm3 (0.00-0.00); Lymphocytes # (Auto) 0.4 Thou/mm3 (1.0-4.8); Lymphocytes % (Auto) 12 % (10-50); Mean Corpuscular HGB Conc 32.0 g/dl (31.0-37.0); Mean Corpuscular Hemoglobin 31.2 pg (25.0-35.0); Mean Corpuscular Volume 98 fL (80-100); Monocytes # (Auto) 0.4 Thou/mm3 (0.0-0.8); Monocytes % (Auto) 13 % (0-12); Neutrophils # (Auto) 2.5 Thou/mm3 (1.8-7.7); Neutrophils % (Auto) 73 % (37-80); Nucleated Red Blood Cell # 0.00 Thou/mm3 (0.00-0.00); Nucleated Red Blood Cell % 0 /100 WBC (0); RDW Standard Deviation 56.2 fL (36.4-46.3); Red Blood Count 2.37 Miln/mm3 (4.00-5.20); White Blood Count 3.5 Thou/mm3 (3.6-11.0)
[2025-08-22 06:15] LABS: Hemoglobin 7.4 g/dL (12.0-16.0); Platelet Count 32 Thou/mm3 (140-440)
[2025-08-22 07:08] LABS: Slide Review Platelets confirmed
[2025-08-22 07:13] LABS: Alanine Aminotransferase 19 U/L (10-49); Albumin, Serum 3.0 gm/dL (3.5-5.0); Albumin/Globulin Ratio 0.8 (1.2-2.2); Alkaline Phosphatase 56 U/L (46-116); Anion Gap 14 (7-16); Aspartate Amino Transferase 32 U/L (0-34); BUN/Creatinine Ratio 9 Ratio (12-20); Bilirubin,Total 1.0 mg/dL (0.3-1.2); Blood Urea Nitrogen 102 mg/dL (9-23); Calcium 8.2 mg/dL (8.3-10.6); Calcium (Corrected) 9.0 mg/dL (8.5-10.1); Carbon Dioxide 17.7 mMol/L (20.0-31.0); Chloride 107 mMol/L (98-107); Creatinine (Component) 11.4 mg/dL (0.6-1.3); Estimated Creatinine Clearance 8.1 mL/min (>60); Globulin 3.6 gm/dL (2.3-3.5); Glucose 199 mg/dL (74-106); Magnesium 2.6 mg/dL (1.6-2.6); Osmolality,Calculated 315 (275-295); Potassium 5.0 mMol/L (3.4-5.1); Sodium 139 mMol/L (136-145); Total Protein 6.6 gm/dL (5.7-8.2); eGFR 4 See Note
[2025-08-22 07:16] LABS: Phosphorous 10.8 mg/dL (2.4-5.1)
--- NOTE | 2025-08-22 07:45 | ESPR_ITS ---
<Statement entered by Darian Gonzalez MD - 08/30/25 08:39> I reviewed above note and agree with findings and plans. I have also personally examined the patient with medicine team and went over assessment and plan with medical team including automotive internet sales manager and resident physician. <Statement entered by Nydia Jay MD - 08/23/25 15:31> Pt is seen at bedside, pt was not able to get a tunneled dialysis cath today. The worsening kidney function, BUN and fluid overload state. Will order Vas-cath for urgent dialysis session. Pt will undergo 3 sessions of dialysis inpatient and then continue outpatient therafter. Patient was seen and examined by me personally. I have directly supervised and reviewed documentation by the team resident and agree with its findings. ------- Plan of care was discussed with the attending, Dr. Lisa Jay, PGY-2 Documentation for date of: 08/22/25 Subjective Subjective Interval history: NAEO. RR 14-26. BP 130-140s/50-60s. spO2 99% on 3L O2. Net positive 540 mL. Had diffuse shaking this AM, most likely 2/2 uremia Patient to get vasccath for dialysis today rather than tunneled dialysis catheter due to thrombocytopenia. Jonatan, son: [phone] Exam Vital Signs Temp Pulse Resp BP Pulse Ox O2 Del Method O2 Flow Rate 97.1 F 72 17 141/52 H 99 Nasal Cannula 3 08/22/25 04:00 08/22/25 05:32 08/22/25 04:00 08/22/25 05:32 08/22/25 04:00 08/22/25 04:00 08/22/25 04:00 Narrative Exam General: No acute distress, well nourished, obese Eye: PERRL, EOMI, normal conjunctiva, no scleral icterus HENT: Normocephalic, atraumatic, normal hearing, moist oral mucosa. ample anterior soft tissue, large neck circumference Neck: Supple, non-tender, no JVD, no lymphadenopathy Lungs: Bilateral crackles on auscultation (mildly improved from previous exam) Heart: Normal S1 and S2, no S3 or S4 appreciated. Normal rate and regular rhythm, no murmurs, rubs gallops.2+ pitting edema of bilateral LEs. L>R to the bilateral knees. Abdomen: Soft, non-tender, non-distended, normal bowel sounds. No guarding or rebound tenderness. Musculoskeletal: Normal range of motion and strength, no tenderness or swelling Skin: Skin is warm, dry, no rashes or lesions. Neurologic: Alert, awake and oriented x3. CN II-XII grossly intact. No focal neuro deficits. No signs of meningeal irritation noted. Diffuse shaking Psychiatric: Cooperative, appropriate mood and affect Objective Labs 08/22/25 05:35 08/22/25 05:35 Labs: Laboratory Results - last 24 hr 08/20/25 08/21/25 08/22/25 09:18 13:15 05:35 WBC 3.5 L RBC 2.37 L Hgb 7.4 L Hct 23.1 L MCV 98 MCH 31.2 MCHC 32.0 RDW Std Deviation 56.2 H Plt Count 32 L Neut % (Auto) 73 Lymph % (Auto) 12 [place] % (Auto) 13 H Eos % (Auto) 1 Baso % (Auto) 0 Neut # (Auto) 2.5 Lymph # (Auto) 0.4 L [place] # (Auto) 0.4 Eos # (Auto) 0.1 Baso # (Auto) 0.0 Immature Gran # (Auto) 0.03 H Absolute Nucleated RBC 0.00 Immature Gran % 1 H Nucleated RBC % 0 Sodium 139 Potassium 5.0 Chloride 107 Carbon Dioxide 17.7 L Anion Gap 14 BUN 102 H* Creatinine 11.4 H* D Estim Creat Clear Calc 8.1 L eGFR 4 L* BUN/Creatinine Ratio 9 L Glucose 199 H Calculated Osmolality 315 H Calcium 8.2 L Corrected Calcium 9.0 Phosphorus 10.8 H Magnesium 2.6 Total Bilirubin 1.0 AST 32 ALT 19 Alkaline Phosphatase 56 Total Protein 6.6 Albumin 3.0 L Globulin 3.6 H Albumin/Globulin Ratio 0.8 L Ur Collection Type Catheter Urine Color Yellow Urine Clarity Hazy Urine pH 5.0 Ur Specific [place] 1.014 Urine Protein 1+ A Urine Glucose (UA) Negative Urine Ketones Negative Urine Blood 3+ A Urine Nitrite Negative Urine Bilirubin Negative Urine Urobilinogen (Auto) Negative Ur Leukocyte Esterase Positive Urine RBC 244 H Urine WBC 9 H Ur Squamous Epith Cells 2 Urine Bacteria Rare Ur Culture Indicated? Not Indicated Hepatitis A IgM Ab Non Reactive Hep Bs Antigen Non Reactive Hep B Core IgM Ab Non Reactive Hepatitis C Antibody Non Reactive Misc Test Result Platelets confirmed ABG Interpretation ABG results: 08/20/25 09:18 VBG pH 7.38 VBG pCO2 29 L VBG pO2 72 H VBG Base Excess -8 L Quality Measures Quality Measures none Assessment & Plan Assessment Current Active Medications: Generic Name Dose Route Start Last Admin Trade Name Freq PRN Reason Stop Dose Admin Acetaminophen 650 mg 08/20/25 10:08 Acetaminophen 325 Mg Tablet PO 09/19/25 10:07 Q6H PRN Fever >100.4 and pain Hydrocodone Bitart/Acetaminophen 1 tab 08/20/25 22:40 08/21/25 16:17 Hydrocodone/Apap 10/325 Tab PO 08/25/25 17:05 1 tab Q6HR PRN Administration PAIN Atorvastatin Calcium 10 mg 08/21/25 21:00 08/21/25 20:25 Atorvastatin Calcium 10 Mg Tablet PO 09/20/25 20:59 10 mg HS SHERYL Administration Dextrose 25 ml 08/20/25 10:14 Dextrose 50%-Water Inj 50 Ml Syringe IV 09/19/25 10:13 Q15MIN PRN BG 50-70 responsive npo pt Dextrose 50 ml 08/20/25 10:14 Dextrose 50%-Water Inj 50 Ml Syringe IV 09/19/25 10:13 Q15MIN PRN BG <50 OR BG <70 & pt unresponsive Furosemide 40 mg 08/20/25 14:00 08/22/25 05:32 Furosemide Inj 10 Mg/Ml 4ml Vial IVP 09/19/25 13:59 40 mg TID SHERYL Administration Gabapentin 400 mg 08/20/25 21:00 08/21/25 20:26 Gabapentin 100 Mg Capsule PO 09/19/25 20:59 400 mg BID SHEYRL Administration Glucagon 1 mg 08/20/25 10:14 Glucagon Inj 1 Mg Vial IM Q15MIN PRN BG <70, and no IV access Insulin Degludec 15 unit 08/20/25 21:00 08/21/25 20:25 Insulin Degludec 5 Unit/0.05 Ml (Per 5 Units) SC 09/19/25 20:59 15 unit HS SHERYL Administration Insulin Human Lispro 0 unit 08/21/25 11:30 08/21/25 20:25 Insulin Lispro (Admelog) 1 Unit/0.01 Ml Unit SC 09/20/25 11:29 2 unit ACHS SHERYL Administration Protocol Lactulose 20 gm 08/20/25 22:00 08/22/25 05:20 Lactulose Syrup 20 Gm/30 Ml Udc PO 09/19/25 21:59 Not Given TID SHERYL Protocol Ondansetron HCl 4 mg 08/20/25 10:08 Ondansetron Inj 2 Mg/Ml Inj 2 Ml IVP 09/19/25 10:07 Q6H PRN NAUSEA OR VOMITING Protocol Pantoprazole Sodium 40 mg 08/21/25 09:00 08/21/25 08:10 Pantoprazole 40 Mg Tablet PO 09/20/25 08:59 40 mg QDAY SHERYL Administration Propranolol HCl 10 mg 08/20/25 21:00 08/21/25 20:26 Propranolol 10 Mg Tablet PO 09/19/25 20:59 10 mg BID SHERYL Administration Sodium Bicarbonate 650 mg 08/21/25 14:00 08/22/25 05:20 Sodium Bicarbonate 650 Mg Tablet PO 09/20/25 13:59 Not Given TID SHERYL Plan Ms Hopper is a 55 year old woman with a hx significant for advanced CKD that has now progressed to ESRD, HFpEF 55-60 12/2024, HLD, HTN, who presented with malaise and shortness of breath, found to be significantly volume overloaded, with elevated BUN and Cr, admitted for dialysis vs diuresis, given pt with severe thrombocytopenia 2/2 cirrhosis defer placing temp hd line.Nephrology consulted, Dr Neil. Plan for IV diuresis. #Hx of Advanced CKD, now with ESRD #Chronic Normocytic Anemia #Hyperkalemia #Hyperphosphatemia #AGAMA Worsening BUN, Cr, low bicarb, electrolyte abnormalities Plan: - Pending PPD TB skin test - Dr. Neil consulted, appreciate recs - IR to be placed vasc cath 08/22, then 3 days dialysis, followed by outpatient dialysis. 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 [place] #Moderate Ascites #Coagulopathy #Hyperammonemia #Thrombocytopenia - downtrending On admit: Ammonia 138, PT 14.7, INR 1.4, plt 43 Hepatitis panel nonreactive MELD: 23, 19.6% 3 month mortality Plan: - Lactulose 20 TID - Lasix as above #Type 2 DM, insulin dependent A1c 6.5 Home regimen 35 U long acting BID , 20 U short acting tid with meals, Ozempic SC qweekly Uses freestyle merna Plan: - ISS Step 2 - Degludec 15 #HTN Plan: - Amlodipine 10 mg PO daily #HLD Plan: - Atorvastatin 10 mg PO DHS Gout Plan: - hold home Ursodiole mg PO TID i/s/o ESRD (see above) Diabetic Neuropathy Ambulates with a 4 wheel walker Plan: - Gabapentin 400 mg PO BID - PT consulted #PHUONG Large neck circumference. Daignosed with PHUONG, never recieved CPAP machine at home Plan: - Discharge with CPAP - CPAP qhs prn while inpatient #Chronic low back pain Plan: - [place] 10 mg q6h PRN Checklist Dispo: Pending vasc cath, dialysis Lines: PIV Diet: Renal Diet, carb consistent Bowel Reg: Lactulose 20 TID VTE ppx: SCD given low plt GI ppx: Pantoprazole 40 mg IV daily Pain mgmt: Tylenol PRN, [place] 10 mg q6h PRN Code status: full Plan discussed with my attending Dr. Gonzalez and my senior Dr. Pierre Reddy MD PGY1
[2025-08-22 08:53] LABS: INR 1.4 (0.9-1.3); Partial Thromboplastin Time 32.2 Seconds (22.0-36.0); Prothrombin Time 14.8 Seconds (9.0-12.2)
--- NOTE | 2025-08-22 09:16 | PC.NURSE ---
spoke with Md seay of dr. beckford recommendation to perform a temporary hemodialyis catheter. per md seay orders temporary dialysis catheter to be inserted.
[2025-08-22] MEDS: HEPARIN SOD LOCK SYR 100 UNIT/ML 500 UNIT IV (10:45)
[2025-08-22] MEDS: LIDOCAINE INJ PF 1% 30 ML VIAL 4 ML EPID (10:49)
[2025-08-22] MEDS: HEPARIN SOD INJ 1000 UNIT/ML VIAL 3100 UNIT INDWELLCAT (11:05)
--- NOTE | 2025-08-22 11:21 | PC.PT ---
PT approached patient for PT eval at 1023 but patient was not in room. RN informed PT that patient was getting a procedure done at 1000 and was not back yet. Will re-attempt PT eval when patient is not in a procedure. RN made aware.
--- NOTE | 2025-08-22 11:42 | PC.NURSE ---
patient transferred back to room via gurney. patient alert and oriented. gcs of 15. hand off report given to Justyna orozco. Justyna orozco and I assessed dressing and site. site is soft, flat, non-tender, and no hematoma present. dressing is clean, dry and intact. per md beckford order may use dialysis catheter.
--- NOTE | 2025-08-22 12:11 | PC.SS ---
Follow up note: Patient will need new hemodialysis with Dr. Neil. Patient received vas cath today. SS submitted all documentation to [facility] off [address] for review for o/p chair time. They will need to submit for prior auth
--- NOTE | 2025-08-22 13:00 | ESPR_ITS ---
Documentation for date of: 08/22/25 Subjective Subjective Interval history: Patient denies cardiac symptoms Blood pressure stable Exam Vital Signs Temp Pulse Resp BP Pulse Ox O2 Del Method O2 Flow Rate 98.6 F 71 18 117/54 L 97 Nasal Cannula 2 08/22/25 12:34 08/22/25 12:47 08/22/25 12:34 08/22/25 12:47 08/22/25 12:34 08/22/25 11:06 08/22/25 12:34 Routine HEENT Exam Head: Present normocephalic and atraumatic Eye: Present EOMI and PERRL ENT: Present mucous membranes moist Routine Neck Exam Neck: Present supple and trachea midline Routine Respiratory Exam Respiratory: Present chest non-tender, lungs clear, normal breath sounds and no resp distress Routine Cardiovascular Exam Cardiovascular: Present RRR Routine Abdominal Exam Abdominal: Present soft and normoactive bowel sounds Routine Extremities Exam Extremities: Present full ROM Routine Skin Exam Skin: Present intact, dry and warm Routine Neurological Exam Neurological: Present alert, oriented X3 and CN II-XII intact Routine Psychiatric Exam Psychiatric: Present normal affect and normal thought process Objective Labs 08/22/25 05:35 08/22/25 05:35 Labs: Laboratory Results - last 24 hr 08/20/25 08/21/25 08/22/25 09:18 13:15 05:35 WBC 3.5 L RBC 2.37 L Hgb 7.4 L Hct 23.1 L MCV 98 MCH 31.2 MCHC 32.0 RDW Std Deviation 56.2 H Plt Count 32 L Neut % (Auto) 73 Lymph % (Auto) 12 [place] % (Auto) 13 H Eos % (Auto) 1 Baso % (Auto) 0 Neut # (Auto) 2.5 Lymph # (Auto) 0.4 L [place] # (Auto) 0.4 Eos # (Auto) 0.1 Baso # (Auto) 0.0 Immature Gran # (Auto) 0.03 H Absolute Nucleated RBC 0.00 Immature Gran % 1 H Nucleated RBC % 0 PT 14.8 H INR 1.4 H APTT 32.2 Sodium 139 Potassium 5.0 Chloride 107 Carbon Dioxide 17.7 L Anion Gap 14 BUN 102 H* Creatinine 11.4 H* D Estim Creat Clear Calc 8.1 L eGFR 4 L* BUN/Creatinine Ratio 9 L Glucose 199 H Calculated Osmolality 315 H Calcium 8.2 L Corrected Calcium 9.0 Phosphorus 10.8 H Magnesium 2.6 Total Bilirubin 1.0 AST 32 ALT 19 Alkaline Phosphatase 56 Total Protein 6.6 Albumin 3.0 L Globulin 3.6 H Albumin/Globulin Ratio 0.8 L Ur Collection Type Catheter Urine Color Yellow Urine Clarity Hazy Urine pH 5.0 Ur Specific [place] 1.014 Urine Protein 1+ A Urine Glucose (UA) Negative Urine Ketones Negative Urine Blood 3+ A Urine Nitrite Negative Urine Bilirubin Negative Urine Urobilinogen (Auto) Negative Ur Leukocyte Esterase Positive Urine RBC 244 H Urine WBC 9 H Ur Squamous Epith Cells 2 Urine Bacteria Rare Ur Culture Indicated? Not Indicated Hepatitis A IgM Ab Non Reactive Hep Bs Antigen Non Reactive Hep B Core IgM Ab Non Reactive Hepatitis C Antibody Non Reactive Misc Test Result Platelets confirmed ABG Interpretation ABG results: 08/20/25 09:18 VBG pH 7.38 VBG pCO2 29 L VBG pO2 72 H VBG Base Excess -8 L Assessment & Plan A&P Narrative Likely demand ischemia causing borderline elevation of troponin Echocardiographic exam done in December shows normal LV function Continue medical management Time Spent With Patient Time: Total time spent is greater than 50% in coordination of care (as documented) at patient's floor/unit and/or counseling patient:
[2025-08-22] MEDS: HEPARIN SOD INJ 1000 UNIT/ML VIAL 10 ML 3100 UNIT INDWELLCAT (14:41)
[2025-08-22] MEDS: SODIUM BICARBONATE 650 MG TABLET PO ×2 (15:19→20:33)
[2025-08-22] MEDS: INSULIN LISPRO (AdmeLOG) 1 UNIT/0.01 ML UNIT SC ×2 (17:39→20:32)
--- NOTE | 2025-08-22 19:21 | PC.NURSE ---
Son to bring patients home meds in 08/23 so we can complete the med rec
[2025-08-22] MEDS: ATORVASTATIN CALCIUM 10 MG TABLET PO (20:33)
[2025-08-22] MEDS: INSULIN DEGLUDEC 5 UNIT/0.05 ML (PER 5 UNITS) 15 UNIT SC (20:33)
[2025-08-22] MEDS: GABAPENTIN 100 MG CAPSULE 400 MG PO (20:33)
[2025-08-22] MEDS: PROPRANOLOL 10 MG TABLET PO (20:33)
[2025-08-23] VITALS (40 sets, daily range): BP systolic 98–161; BP diastolic 34–98; PULSE 70–94; RESP 14–99; TEMP 36.1–36.6; O2SAT 94–100; BMI 60.1; BMI 60.5
[2025-08-23] MEDS: LACTULOSE SYRUP 20 GM/30 ML UDC PO ×2 (05:12→13:10)
[2025-08-23] MEDS: FUROSEMIDE INJ 10 MG/ML 4ML VIAL 40 MG IVP ×2 (05:12→17:57)
[2025-08-23] MEDS: SODIUM BICARBONATE 650 MG TABLET PO ×3 (05:12→21:01)
[2025-08-23 05:40] LABS: Basophils # (Auto) 0.0 Thou/mm3 (0.0-0.2); Basophils % (Auto) 0 % (0-2.5); Eosinophils # (Auto) 0.0 Thou/mm3 (0.0-0.5); Eosinophils % (Auto) 1 % (0-10); Hematocrit 21.3 % (36.0-46.0); Immature Granulocytes Auto 0.04 Thou/mm3 (0.00-0.00); Lymphocytes # (Auto) 0.3 Thou/mm3 (1.0-4.8); Lymphocytes % (Auto) 10 % (10-50); Mean Corpuscular HGB Conc 31.9 g/dl (31.0-37.0); Mean Corpuscular Hemoglobin 30.6 pg (25.0-35.0); Mean Corpuscular Volume 96 fL (80-100); Monocytes # (Auto) 0.5 Thou/mm3 (0.0-0.8); Monocytes % (Auto) 15 % (0-12); Neutrophils # (Auto) 2.3 Thou/mm3 (1.8-7.7); Neutrophils % (Auto) 73 % (37-80); Nucleated Red Blood Cell # 0.00 Thou/mm3 (0.00-0.00); Nucleated Red Blood Cell % 0 /100 WBC (0); RDW Standard Deviation 53.7 fL (36.4-46.3); Red Blood Count 2.22 Miln/mm3 (4.00-5.20); White Blood Count 3.2 Thou/mm3 (3.6-11.0)
[2025-08-23 05:52] LABS: Hemoglobin 6.8 g/dL (12.0-16.0)
[2025-08-23 05:54] LABS: Platelet Count 24 Thou/mm3 (140-440)
[2025-08-23 06:23] LABS: Alanine Aminotransferase 15 U/L (10-49); Albumin, Serum 2.7 gm/dL (3.5-5.0); Albumin/Globulin Ratio 0.8 (1.2-2.2); Alkaline Phosphatase 54 U/L (46-116); Anion Gap 12 (7-16); Aspartate Amino Transferase 25 U/L (0-34); BUN/Creatinine Ratio 9 Ratio (12-20); Bilirubin,Total 0.9 mg/dL (0.3-1.2); Blood Urea Nitrogen 86 mg/dL (9-23); Calcium 8.2 mg/dL (8.3-10.6); Calcium (Corrected) 9.2 mg/dL (8.5-10.1); Carbon Dioxide 21.6 mMol/L (20.0-31.0); Chloride 104 mMol/L (98-107); Creatinine (Component) 9.8 mg/dL (0.6-1.3); Estimated Creatinine Clearance 9.2 mL/min (>60); Globulin 3.2 gm/dL (2.3-3.5); Glucose 184 mg/dL (74-106); Magnesium 2.1 mg/dL (1.6-2.6); Osmolality,Calculated 306 (275-295); Potassium 4.3 mMol/L (3.4-5.1); Sodium 138 mMol/L (136-145); Total Protein 5.9 gm/dL (5.7-8.2); eGFR 4 See Note
[2025-08-23 06:42] LABS: Phosphorous 9.3 mg/dL (2.4-5.1)
--- NOTE | 2025-08-23 07:44 | ESPR_ITS ---
<Statement entered by Nydia Jay MD - 08/23/25 15:51> Pt is seen at bedside, Pt underwent first dialysis session yesterday and is scheduled for second today. On labs Hgb is 6.8 2 units of pRBCs and 1 bag of platelets is ordered with dialysis today. repeat H-H is ordered. Will order tunneled dialysis by IR which Pt will need before discharge. Patient was seen and examined by me personally. I have directly supervised and reviewed documentation by the team resident and agree with its findings. ------- Plan of care was discussed with the attending, Dr. Enid Jay, PGY-2 Documentation for date of: 08/23/25 Subjective Subjective Interval history: patient seen and examined while in HD She is tolerating well. Day 2 of HD Hgb 6.8 so 2 units prbc to be given with hd she continues with 40 lasix IV BID elevated phos, start on sevalamer TID give unit of PLT, prior to tunneld cath placement by Dr. Helms Exam Vital Signs Temp Pulse Resp BP Pulse Ox O2 Del Method O2 Flow Rate 97.2 F 70 15 108/64 98 Nasal Cannula 2 08/23/25 04:00 08/23/25 05:12 08/23/25 04:00 08/23/25 05:12 08/23/25 04:00 08/23/25 04:00 08/23/25 04:00 Narrative Exam General: No acute distress, well nourished, obese Eye: PERRL, EOMI, normal conjunctiva, no scleral icterus HENT: Normocephalic, atraumatic, normal hearing, moist oral mucosa. ample anterior soft tissue, large neck circumference Neck: Supple, non-tender, no JVD, no lymphadenopathy Lungs: Bilateral crackles on auscultation (mildly improved from previous exam) on 1-2 L NC Heart: Normal S1 and S2, no S3 or S4 appreciated. Normal rate and regular rhythm, no murmurs, rubs gallops.2+ pitting edema of bilateral LEs. L>R to the bilateral mid shins, worse at the ankles and feet. Abdomen: Soft, non-tender, non-distended, normal bowel sounds. No guarding or rebound tenderness. Musculoskeletal: Normal range of motion and strength, no tenderness or swelling Skin: Skin is warm, dry, no rashes or lesions. Neurologic: Alert, awake and oriented x3. CN II-XII grossly intact. No focal neuro deficits. No signs of meningeal irritation noted. Diffuse shaking Psychiatric: Cooperative, appropriate mood and affect Objective Labs 08/23/25 04:31 08/23/25 04:31 Labs: Laboratory Results - last 24 hr 08/22/25 08/23/25 05:35 04:31 WBC 3.2 L RBC 2.22 L Hgb 6.8 L* Hct 21.3 L* MCV 96 MCH 30.6 MCHC 31.9 RDW Std Deviation 53.7 H Plt Count 24 L* D Neut % (Auto) 73 Lymph % (Auto) 10 [place] % (Auto) 15 H Eos % (Auto) 1 Baso % (Auto) 0 Neut # (Auto) 2.3 Lymph # (Auto) 0.3 L [place] # (Auto) 0.5 Eos # (Auto) 0.0 Baso # (Auto) 0.0 Immature Gran # (Auto) 0.04 H Absolute Nucleated RBC 0.00 Immature Gran % 1 H Nucleated RBC % 0 PT 14.8 H INR 1.4 H APTT 32.2 Sodium 138 Potassium 4.3 D Chloride 104 Carbon Dioxide 21.6 Anion Gap 12 BUN 86 H Creatinine 9.8 H* D Estim Creat Clear Calc 9.2 L eGFR 4 L* BUN/Creatinine Ratio 9 L Glucose 184 H Calculated Osmolality 306 H Calcium 8.2 L Corrected Calcium 9.2 Phosphorus 9.3 H Magnesium 2.1 Total Bilirubin 0.9 AST 25 ALT 15 Alkaline Phosphatase 54 Total Protein 5.9 Albumin 2.7 L Globulin 3.2 Albumin/Globulin Ratio 0.8 L ABG Interpretation ABG results: 08/20/25 09:18 VBG pH 7.38 VBG pCO2 29 L VBG pO2 72 H VBG Base Excess -8 L Quality Measures Quality Measures VTE prophylaxis Assessment & Plan Assessment Current Active Medications: Generic Name Dose Route Start Last Admin Trade Name Freq PRN Reason Stop Dose Admin Acetaminophen 650 mg 08/20/25 10:08 Acetaminophen 325 Mg Tablet PO 09/19/25 10:07 Q6H PRN Fever >100.4 and pain Hydrocodone Bitart/Acetaminophen 1 tab 08/20/25 22:40 08/23/25 05:12 Hydrocodone/Apap 10/325 Tab PO 08/25/25 17:05 1 tab Q6HR PRN Administration PAIN Amlodipine Besylate 10 mg 08/23/25 09:00 Amlodipine Besylate 5 Mg Tablet PO 09/22/25 08:59 QDAY SHERYL Atorvastatin Calcium 10 mg 08/21/25 21:00 08/22/25 20:33 Atorvastatin Calcium 10 Mg Tablet PO 09/20/25 20:59 10 mg HS SHERYL Administration Dextrose 25 ml 08/20/25 10:14 Dextrose 50%-Water Inj 50 Ml Syringe IV 09/19/25 10:13 Q15MIN PRN BG 50-70 responsive npo pt Dextrose 50 ml 08/20/25 10:14 Dextrose 50%-Water Inj 50 Ml Syringe IV 09/19/25 10:13 Q15MIN PRN BG <50 OR BG <70 & pt unresponsive Epoetin Bryce 10,000 unit 08/23/25 10:30 Epoetin Bryce-Epbx Inj 10,000 Unit/Ml Vial (Esrd) SC 08/23/25 10:31 X1 ONE Furosemide 40 mg 08/22/25 18:00 08/23/25 05:12 Furosemide Inj 10 Mg/Ml 4ml Vial IVP 09/21/25 17:59 40 mg BIDD SHERYL Administration Gabapentin 400 mg 08/20/25 21:00 08/22/25 20:33 Gabapentin 100 Mg Capsule PO 09/19/25 20:59 400 mg BID SHERYL Administration Glucagon 1 mg 08/20/25 10:14 Glucagon Inj 1 Mg Vial IM Q15MIN PRN BG <70, and no IV access Heparin Sodium (Porcine) 3,100 unit 08/22/25 12:44 08/22/25 14:41 Heparin Sod Inj 1000 Unit/Ml Vial 10 Ml INDWELLCAT 09/05/25 12:43 3,100 unit PRN PRN Administration DIALYSIS Insulin Degludec 15 unit 08/20/25 21:00 08/22/25 20:33 Insulin Degludec 5 Unit/0.05 Ml (Per 5 Units) SC 09/19/25 20:59 15 unit HS SHERYL Administration Insulin Human Lispro 0 unit 08/22/25 07:51 08/22/25 20:32 Insulin Lispro (Admelog) 1 Unit/0.01 Ml Unit SC 09/20/25 11:29 3 unit ACHS SHERYL Administration Protocol Lactulose 20 gm 08/20/25 22:00 08/23/25 05:12 Lactulose Syrup 20 Gm/30 Ml Udc PO 09/19/25 21:59 20 gm TID SHERYL Administration Protocol Ondansetron HCl 4 mg 08/20/25 10:08 Ondansetron Inj 2 Mg/Ml Inj 2 Ml IVP 09/19/25 10:07 Q6H PRN NAUSEA OR VOMITING Protocol Pantoprazole Sodium 40 mg 08/22/25 09:00 08/22/25 09:44 Pantoprazole Inj 40 Mg Vial IV 09/21/25 08:59 40 mg QDAY SHERYL Administration Propranolol HCl 10 mg 08/20/25 21:00 08/22/25 20:33 Propranolol 10 Mg Tablet PO 09/19/25 20:59 10 mg BID SHERYL Administration Sodium Bicarbonate 650 mg 08/21/25 14:00 08/23/25 05:12 Sodium Bicarbonate 650 Mg Tablet PO 09/20/25 13:59 650 mg TID SHERYL Administration Plan Ms Hopper is a 55 year old woman with a hx significant for advanced CKD that has now progressed to ESRD, HFpEF 55-60 12/2024, HLD, HTN, who presented with malaise and shortness of breath, found to be significantly volume overloaded, with elevated BUN and Cr, admitted for dialysis vs diuresis, given pt with severe thrombocytopenia 2/2 cirrhosis defer Nephrology consulted, Dr Neil. Plan for IV diuresis and dialysis, pending tunneled cath placement. #Hx of Advanced CKD, now with ESRD #Chronic Normocytic Anemia #Hyperkalemia #Hyperphosphatemia #AGAMA Worsening BUN, Cr, low bicarb, electrolyte abnormalities Day 2/3 of HD (tolerating well), recieved 2 unit PRBC with HD and 1 unit platelet Plan: - Pending PPD TB skin test - Dr. Neil consulted, appreciate recs - IR to be placed vasc cath 08/22, then 3 days dialysis, followed by outpatient dialysis. - pending tunneled HD cath placement after PLT transfusion - Continue IV lasix as below - sodium bicarb tab 650 mg PO TID - start sevalamer 800 mg PO TID 08/23 - pending iron studing and ferritin #Acute CHF exaccerbation #HFpEF (echo 12/2024 w EF 55-60%) #Type II NSTEMI - troponin downtrending Weight on admission 129.27 kg Likely 2/2 ESRD (see above) BNP 200s Trend troponin, till peaked : 0.106-->0.124 --> 0.097 Plan: - Cardiology Consulted, ruby Peterson recs - Strict I and O - Daily Weights - Lasix 40 IV TID --> BID given decreased preload evident in BP trend - will likely improve with HD (see ESRD above) - Propranolol 10 mg PO BID (home med) #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 [place] #Moderate Ascites #Coagulopathy #Hyperammonemia #Thrombocytopenia - downtrending On admit: Ammonia 138, PT 14.7, INR 1.4, plt 43 Hepatitis panel nonreactive MELD: 23, 19.6% 3 month mortality Plan: - Lactulose 20 TID - Lasix as above #Type 2 DM, insulin dependent A1c 6.5 Home regimen 35 U long acting BID , 20 U short acting tid with meals, Ozempic SC qweekly Uses freestyle merna Plan: - ISS Step 2 - Degludec 15 #HTN Plan: - Amlodipine 10 mg PO daily #HLD Plan: - Atorvastatin 10 mg PO DHS Gout Plan: - hold home Ursodiole mg PO TID i/s/o ESRD (see above) Diabetic Neuropathy Ambulates with a 4 wheel walker Plan: - Gabapentin 400 mg PO BID - PT consulted #PHUONG Large neck circumference. Daignosed with PHUONG, never recieved CPAP machine at home Plan: - Discharge with CPAP - CPAP qhs prn while inpatient #Chronic low back pain Plan: - [place] 10 mg q6h PRN Checklist Dispo: Pending tunneled cath, dialysis, IV duresis with lasix. plan for outpatient hd. Lines: PIV Diet: Renal Diet, carb consistent Bowel Reg: Lactulose 20 TID VTE ppx: SCD given low plt GI ppx: Pantoprazole 40 mg IV daily Pain mgmt: Tylenol PRN, [place] 10 mg q6h PRN Code status: full Plan discussed with my attending Dr. Rossi and my senior Dr. Pierre King MD PGY1 Attending Provider Attestation/Addendum I have seen and examined the patient. I was physically present for the blank portions of the services provided including history, physical exam, diagnosis, treatment plans and orders. I agree with assessment and plan of care as documented by residents. Patient was seen and examined at bedside this morning. Appears comfortable, alert and oriented, denies any new complaints. Underwent hemodialysis, tolerated well. Noted to have hemoglobin of 6.8 this morning, received 2 units of PRBC along with hemodialysis. Patient also received a dose of Epogen. With anemia and platelet level of 24, we will hold chemical DVT prophylaxis and start her on SCDs. Noted mild crackles on auscultation, 2+ pedal edema bilaterally, left slightly worse than the right. No obvious source of bleeding, we will obtain anemia workup including iron panel, ferritin, folate and B12. Continues to be on Lasix 40 mg IV twice daily, also had 2 L of fluid removed during hemodialysis. Hemodialysis catheter placement, will receive a unit of platelets before the procedure. Continues to be on lactulose for end-stage liver disease. Continues to be on insulin regimen for diabetes. Even though this this note was carefully revised there may still be minor errors in bottle washer machine due to voice recognition software. Trinidad Rossi MD
--- NOTE | 2025-08-23 09:00 | PC.PT ---
Upon chart review PT noticed patient had low H&H with values of Hgb 6.8 and Hct 21.3. Per RN, patient will be receiving a blood transfusion during her dialysis session. Will hold PT eval for today and re-attempt at anther time.
[2025-08-23] MEDS: EPOETIN ALFA-EPBX INJ 10,000 UNIT/ML VIAL (ESRD) 10000 UNIT SC (09:19)
--- NOTE | 2025-08-23 09:24 | PC.SS ---
Follow up note: Today is day 2 of dialysis treatment. SS contacted [facility] to verify o/p dialysis chair time. They have patient's schedule as every //Sat @ 4;30a.m. They are closed for the holiday and are discusing the start date.
[2025-08-23] MEDS: HEPARIN SOD INJ 1000 UNIT/ML VIAL 10 ML 3100 UNIT INDWELLCAT (09:50)
[2025-08-23 10:21] LABS: Slide Review Platelets confirmed
[2025-08-23] MEDS: SEVELAMER CARBONATE 800 MG TABLET PO ×2 (11:34→17:57)
[2025-08-23] MEDS: GABAPENTIN 100 MG CAPSULE 400 MG PO ×2 (11:34→20:58)
[2025-08-23] MEDS: PROPRANOLOL 10 MG TABLET PO ×2 (11:35→20:59)
[2025-08-23] MEDS: INSULIN LISPRO (AdmeLOG) 1 UNIT/0.01 ML UNIT SC ×3 (11:46→21:08)
[2025-08-23 15:42] LABS: Hematocrit 26.5 % (36.0-46.0)
[2025-08-23 15:51] LABS: Hemoglobin 8.6 g/dL (12.0-16.0)
[2025-08-23] MEDS: ATORVASTATIN CALCIUM 10 MG TABLET PO (20:59)
[2025-08-23] MEDS: INSULIN DEGLUDEC 5 UNIT/0.05 ML (PER 5 UNITS) 15 UNIT SC (21:08)
[2025-08-24] VITALS (31 sets, daily range): BP systolic 97–159; BP diastolic 48–71; PULSE 69–81; RESP 12–20; TEMP 36–36.9; O2SAT 92–100; BMI 60.1; BMI 12.0
[2025-08-24] MEDS: LACTULOSE SYRUP 20 GM/30 ML UDC PO ×2 (05:30→15:12)
[2025-08-24] MEDS: SODIUM BICARBONATE 650 MG TABLET PO ×3 (05:30→21:02)
[2025-08-24] MEDS: FUROSEMIDE INJ 10 MG/ML 4ML VIAL 40 MG IVP ×2 (05:30→17:35)
[2025-08-24 05:54] LABS: Basophils # (Auto) 0.0 Thou/mm3 (0.0-0.2); Basophils % (Auto) 0 % (0-2.5); Eosinophils # (Auto) 0.1 Thou/mm3 (0.0-0.5); Eosinophils % (Auto) 2 % (0-10); Hematocrit 24.7 % (36.0-46.0); Immature Granulocytes Auto 0.06 Thou/mm3 (0.00-0.00); Lymphocytes # (Auto) 0.5 Thou/mm3 (1.0-4.8); Lymphocytes % (Auto) 14 % (10-50); Mean Corpuscular HGB Conc 32.8 g/dl (31.0-37.0); Mean Corpuscular Hemoglobin 30.9 pg (25.0-35.0); Mean Corpuscular Volume 94 fL (80-100); Monocytes # (Auto) 0.6 Thou/mm3 (0.0-0.8); Monocytes % (Auto) 19 % (0-12); Neutrophils # (Auto) 2.0 Thou/mm3 (1.8-7.7); Neutrophils % (Auto) 63 % (37-80); Nucleated Red Blood Cell # 0.02 Thou/mm3 (0.00-0.00); Nucleated Red Blood Cell % 1 /100 WBC (0); RDW Standard Deviation 55.8 fL (36.4-46.3); Red Blood Count 2.62 Miln/mm3 (4.00-5.20); White Blood Count 3.2 Thou/mm3 (3.6-11.0)
[2025-08-24 06:21] LABS: Ferritin 146 ng/mL (7.3-270.7); Iron 58 mcg/dL (50-170); Percent Iron Saturation 25 % (20-55); Total Iron Binding Capacity 232 mcg/dL (250-425); Unsaturated Iron Binding 174 (225-295)
[2025-08-24 06:31] LABS: Alanine Aminotransferase 14 U/L (10-49); Albumin, Serum 2.8 gm/dL (3.5-5.0); Albumin/Globulin Ratio 0.8 (1.2-2.2); Alkaline Phosphatase 45 U/L (46-116); Anion Gap 11 (7-16); Aspartate Amino Transferase 30 U/L (0-34); BUN/Creatinine Ratio 7 Ratio (12-20); Bilirubin,Total 1.1 mg/dL (0.3-1.2); Blood Urea Nitrogen 57 mg/dL (9-23); Calcium 7.8 mg/dL (8.3-10.6); Calcium (Corrected) 8.8 mg/dL (8.5-10.1); Carbon Dioxide 24.0 mMol/L (20.0-31.0); Chloride 102 mMol/L (98-107); Creatinine (Component) 7.9 mg/dL (0.6-1.3); Estimated Creatinine Clearance 11.2 mL/min (>60); Folate > 24.00 ng/mL (>5.38); Globulin 3.5 gm/dL (2.3-3.5); Glucose 185 mg/dL (74-106); Magnesium 2.1 mg/dL (1.6-2.6); Osmolality,Calculated 294 (275-295); Phosphorous 7.2 mg/dL (2.4-5.1); Potassium 4.1 mMol/L (3.4-5.1); Sodium 137 mMol/L (136-145); Total Protein 6.3 gm/dL (5.7-8.2); eGFR 6 See Note
[2025-08-24 06:54] LABS: Hemoglobin 8.1 g/dL (12.0-16.0); Platelet Count 23 Thou/mm3 (140-440)
[2025-08-24] MEDS: GABAPENTIN 100 MG CAPSULE 400 MG PO ×2 (08:34→21:02)
--- NOTE | 2025-08-24 08:50 | PC.NURSE ---
Consulted Dr. Carlson regarding order for perm cath insertion, current platelet 23 thou/mm3. Dr. Carlson stated he will not do procedure with platelet level of 23. Hospitalist jose angel santamaria called and made aware and will call Dr. Carlson to discuss plan of care.
--- NOTE | 2025-08-24 09:12 | PD.RESDS ---
Planned Discharge Date 08/24/25 DS: Providers Provider Date of admission: 08/20/25 10:08 Primary care physician: Flip Ferraro MD Admitting Provider: Darian Gonzalez MD Attending Provider on Admission: Trinidad Rossi MD Consults: 08/20/25 10:16 Consult to Nephrology Stat Comment: Consulting Provider: Nathaniel Neil 08/20/25 10:28 Consult to Cardiology Stat Comment: Consulting Provider: Kenia Peterson 08/20/25 13:26 Referral Physical Therapy Routine Comment: Physician Instructions: 08/22/25 17:04 Referral Wound Care Routine Comment: Attending Provider on DC: Trinidad Rossi MD Discharging Provider: Trinidad Rossi MD DS: Diagnosis Problem List Completed Was Problem List Reviewed/Reconciled?: Yes Hospital Course Hospital Course Hospital course: Hospital Course Patient stable and medically cleared for discharge Diagnoses Discharge instructions Time Spent with Patient Time attestation: Total time spent providing and/or coordinating discharge services: Exam Vital Signs Temp Pulse Resp BP Pulse Ox O2 Del Method O2 Flow Rate 98.0 F 70 14 100/54 L 99 Nasal Cannula 2 08/24/25 07:30 08/24/25 09:00 08/24/25 07:30 08/24/25 09:00 08/24/25 07:30 08/24/25 04:00 08/24/25 07:30 Discharge Plan Problem List Was Problem List Reviewed/Reconciled?: Yes Plan Care Plan Goals: -Please continue with your dialysis sessions Friday, Friday, Friday -For your thigh wound, please continue seeing the wound care nurses outpatient. - Some changes were made to your medications, - your blood pressure was elevated so you were started on amlodipine 10mg once a day - please take your iron supplement every other day. - you were started on a medication called sevelamer carbonate to help with your phosphate levels, please take 800 mg three times a day with meals. - your lasix dose was changed to 40 mg once a day - your gabapentin was changed because you started dialysis please only take gabapentin 300 mg three times a week after dialysis -Follow up with PCP within 1 week of discharge, if you do not have a primary care physician you can come see us at the [facility] by calling [phone] -Continue rest of medications as previously prescribed -Return to the ED or call EMS if symptoms return and/or worsen Prescriptions/Referrals Prescriptions/Med Rec: New amlodipine 10 mg tablet 10 mg PO QDAY 30 Days Qty: 30 0RF furosemide [Lasix] 40 mg tablet 40 mg PO QDAY 30 Days Qty: 30 0RF gabapentin 300 mg tablet extended release 24 hr 300 mg PO .3 times a week 30 Days Qty: 30 0RF Rx Instructions: 3 times a week after dialysis session sevelamer carbonate 800 mg Tablet 800 mg PO TIDWM 30 Days Qty: 90 0RF Continued ursodiol 300 mg Capsule 300 mg PO TID insulin glargine [Basaglar KwikPen U-100 Insulin] 100 unit/mL (3 mL) Insulin Pen 35 unit SUBCUT BID propranolol 10 mg tablet 10 mg PO BID Patient Comments: TAKE ONE TABLET BY MOUTH TWICE DAILY FOR BLOOD PRESSURE atorvastatin 10 mg tablet 10 mg PO HS Patient Comments: TAKE ONE TABLET BY MOUTH EVERY DAY FOR CHOLESTEROL cholecalciferol (vitamin D3) [Vitamin D3] 25 mcg (1,000 unit) Tablet 50 mcg PO QDAY ascorbic acid (vitamin C) [Vitamin C] 1,000 mg Tablet 1,000 mg PO DAILY Ozempic 0.25 mg or 0.5 mg (2 mg/3 mL) pen injector 0.5 mg SUBCUT . Patient Comments: INJECT 0.5 MG SUBCUTANEOUSLY EVERY WEEK FOR DIABETES medroxyprogesterone 10 mg tablet 10 mg PO BID zinc sulfate 50 mg zinc (220 mg) Capsule 50 mg PO QDAY medroxyprogesterone 5 mg tablet 5 mg PO DAILY Patient Comments: TAKE ONE TABLET BY MOUTH EVERY DAY hydrocodone-acetaminophen 10-325 mg tablet 1 tab PO Q12H PRN (Reason: pain) Patient Comments: TAKE ONE TABLET BY MOUTH EVERY TWELVE HOURS NEEDED FOR PAIN lactulose 10 gram/15 mL solution 20 g PO TID Qty: 3000 0RF insulin aspart U-100 100 unit/mL (3 mL) Insulin Pen 20 unit SUBCUT TIDPC 90 Days Qty: 15 0RF Rx Instructions: TID after meals (DME) FreeStyle Isaac 3 [place] Misc See Rx Instructions .Route Qty: 1 0RF Rx Instructions: As directed (DME) FreeStyle Isaac 3 Sensor Device See Rx Instructions .Route Qty: 1 3RF Rx Instructions: As directed colchicine 0.6 mg tablet 0.6 mg PO Q OTHER DAY 90 Days Qty: 45 0RF B complex-vitamin C-folic acid [Arlene-Kathrin] 1 tab .Route DAILY Changed ferrous sulfate 325 mg (65 mg iron) tablet,delayed release (DR/EC) 325 mg PO Q OTHER DAY 30 Days Qty: 15 0RF Patient Comments: TAKE ONE TABLET BY MOUTH EVERY DAY Held metolazone 5 mg tablet 5 mg PO DAILY Hold Instructions: Resume on 09/07/25. Hold until you see your mathematician research Patient Comments: TAKE ONE TABLET BY MOUTH EVERY MORNING BEFORE furosemide A DIURETIC Discontinued gabapentin 400 mg capsule 400 mg PO BID Patient Comments: TAKE ONE CAPSULE BY MOUTH TWICE DAILY FOR NERVE PAIN furosemide 20 mg tablet 20 mg PO DAILY Qty: 7 0RF Patient Comments: TAKE ONE TABLET BY MOUTH EVERY MORNING A DIURETIC Referrals: Flip Ferraro MD [Primary Care Provider, Family Practice] Patient/Caregiver Discharge Instructions Other Discharge Activity Instructions:: Follow up with [facility] Dialysis Center [facility], #[phone]. Chair time: Fri/Fri/Fri. @ 4:30a.m. with a start date on Friday, the 26 of August at 8:30a.m. Print Language: Luxembourgish
--- NOTE | 2025-08-24 09:13 | PC.SS ---
Addendum entered by Justyna Granados 08/24/25 09:26: SS spoke to [facility] and they provided a start date of Friday the 26 of August at 8:30a.m. Original Note: Follow up note: Patient is pending a tunnel dialysis cath placement. Poss d/c today or tomorrow. SS left dialysis a message regarding start date for treatment.
--- NOTE | 2025-08-24 09:26 | PC.NURSE ---
Spoke to Mary in medical lab scientist, tried to call Roula back to give report on patient, not available.
--- NOTE | 2025-08-24 09:40 | XR_ITS ---
PROCEDURE: Conversion of nontunneled dialysis catheter to tunneled dialysis catheter Procedural Personnel Attending physician(s): Mika Carlson MD Pre-procedure diagnosis: Renal failure Post-procedure diagnosis: Same Indication (QCDR): Performance of hemodialysis Complications: No immediate complications. PROCEDURE SUMMARY: - Conversion of nontunneled dialysis catheter to tunneled dialysis catheter - Removal of nontunneled dialysis catheter PROCEDURE DETAILS: Pre-procedure History and imaging of central venous access reviewed: Yes Consent: Informed consent for the procedure including risks, benefits and alternatives was obtained and time-out was performed prior to the procedure. Preparation: The site was prepared and draped using all elements of maximal sterile barrier technique including sterile gloves, sterile gown, cap, mask, large sterile sheet, sterile ultrasound probe cover, hand hygiene and cutaneous antisepsis with chlorhexidine or a comparable alternative. Anesthesia/sedation 2 g IV Ancef 25 mcg IV fentanyl Sedation time: 30 minutes Catheter placement Patient was prepped and draped in the usual sterile manner. 1% lidocaine was injected subcutaneously around the pre-existing right internal jugular nontunneled central venous catheter and along the right chest wall at the site of tunneled catheter placement. An incision was made near the venous access site and the catheter was tunneled subcutaneously to the venous access site. A wire was inserted via the pre-existing nontunneled dialysis catheter which was removed over the wire. The new tunneled catheter was advanced via a peel-away sheath into the vein under fluoroscopic guidance. Catheter tip location was fluoroscopically verified and a permanent image was stored. Catheter placed: Medcomp 14 Azer[place] 24 cm split tip hemodialysis catheter Catheter cuff-to-tip length (cm): 19 Catheter flush: Heparin (1000 units/mL) Closure A sterile dressing was applied. Access site closure technique: Absorbable suture Catheter securement technique: Absorbable suture Radiation Dose 25.61 mGy Additional Details Estimated blood loss (mL): Less than 10 Standardized report: [id number] IMPRESSION: Conversion of pre-existing right internal jugular nontunneled dialysis catheter for a new tunneled right-sided tunneled dialysis catheter, with tip in the expected location of the right atrium. Catheter ready for immediate use. Attestation Signer name: Mika Carlson MD I attest that I was present for the entire procedure. I agree with the report as written. No unintentionally retained devices were noted upon review of the images.
[2025-08-24 10:36] LABS: Slide Review Platelets confirmed
[2025-08-24] MEDS: ceFAZolin/D5W 2 GM IV 2 GM/100 ML BAG IV (11:00)
[2025-08-24] MEDS: fentaNYL CIT INJ 50 mCg/ML AMP 2ML 25 MCG IVP (11:08)
[2025-08-24] MEDS: LIDOCAINE INJ PF 1% 30 ML VIAL 12 ML INFL (11:10)
[2025-08-24] MEDS: HEPARIN SOD LOCK SYR 100 UNIT/ML 500 UNIT STFIELD (11:10)
[2025-08-24] MEDS: HEPARIN SOD INJ 1000 UNIT/ML VIAL 3300 UNIT INDWELLCAT (11:50)
--- NOTE | 2025-08-24 12:28 | PC.NURSE ---
1153 patient is awake, alert, breathing unlabored, s/p dialysis catheter exchange, no bleeding noted to right IJ catheter site, report given to Lucia BONNER, patient transferred back to room 262 with tele box
[2025-08-24] MEDS: SEVELAMER CARBONATE 800 MG TABLET PO ×2 (12:59→17:35)
--- NOTE | 2025-08-24 14:30 | PC.SS ---
Addendum entered by Justyna Granados 08/24/25 15:00: SS updated dialysis change of discharge plans and discharge date. Original Note: Follow up note: SS spoke to PT who states they were able to do a PT eval mid day and recommend SNF short term. SS updated physician team that we will need prior authorization. SS spoke to patient who prefers [facility]. [facility]
--- NOTE | 2025-08-24 15:58 | ESPR_ITS ---
<Statement entered by Nydia Jay MD - 08/24/25 17:50> Pt is seen at beside, underwent tunneled dialysis cath today and 3rd session of dialysis. Pt outptient dialysis chair time is MWF. PT eval recommended SNF. pending authorization. Patient was seen and examined by me personally. I have directly supervised and reviewed documentation by the team resident and agree with its findings. ------- Plan of care was discussed with the attending, Dr. Rito Jay, PGY-2 Documentation for date of: 08/24/25 Subjective Subjective Interval history: Patient seen and examined at bedside had tunneled hd cath placed today PT evaluated pt and recommend SNF, pending auth Exam Vital Signs Temp Pulse Resp BP Pulse Ox O2 Del Method O2 Flow Rate 97.6 F 73 17 158/70 H 99 Nasal Cannula 2 08/24/25 12:00 08/24/25 12:00 08/24/25 12:00 08/24/25 12:00 08/24/25 12:00 08/24/25 12:00 08/24/25 12:00 Narrative Exam General: No acute distress, well nourished, obese Eye: PERRL, EOMI, normal conjunctiva, no scleral icterus HENT: Normocephalic, atraumatic, normal hearing, moist oral mucosa. ample anterior soft tissue, large neck circumference Neck: Supple, non-tender, no JVD, no lymphadenopathy, tunneled hd cath placed today Lungs: trace crackles bilaterally Heart: Normal S1 and S2, no S3 or S4 appreciated. Normal rate and regular rhythm, no murmurs, rubs gallops.2+ pitting edema of bilateral LEs. L>R at the ankles and feet. Abdomen: Soft, non-tender, non-distended, normal bowel sounds. No guarding or rebound tenderness. Musculoskeletal: Normal range of motion and strength, no tenderness or swelling Skin: Skin is warm, dry, no rashes or lesions. Neurologic: Alert, awake and oriented x3. CN II-XII grossly intact. No focal neuro deficits. No signs of meningeal irritation noted. Psychiatric: Cooperative, appropriate mood and affect Objective Labs 08/25/25 04:58 08/25/25 04:58 Labs: Laboratory Results - last 24 hr 08/23/25 08/24/25 08:25 05:10 WBC 3.2 L RBC 2.62 L Hgb 8.1 L Hct 24.7 L MCV 94 MCH 30.9 MCHC 32.8 RDW Std Deviation 55.8 H Plt Count 23 L* Neut % (Auto) 63 Lymph % (Auto) 14 [place] % (Auto) 19 H Eos % (Auto) 2 Baso % (Auto) 0 Neut # (Auto) 2.0 Lymph # (Auto) 0.5 L [place] # (Auto) 0.6 Eos # (Auto) 0.1 Baso # (Auto) 0.0 Immature Gran # (Auto) 0.06 H Absolute Nucleated RBC 0.02 H Immature Gran % 2 H Nucleated RBC % 1 H Sodium 137 Potassium 4.1 Chloride 102 Carbon Dioxide 24.0 Anion Gap 11 BUN 57 H Creatinine 7.9 H* D Estim Creat Clear Calc 11.2 L eGFR 6 L* BUN/Creatinine Ratio 7 L Glucose 185 H Calculated Osmolality 294 Calcium 7.8 L Corrected Calcium 8.8 Phosphorus 7.2 H Magnesium 2.1 Iron 58 TIBC 232 L Iron Saturation 25 Unsat Iron Binding 174 L Ferritin 146 Total Bilirubin 1.1 AST 30 ALT 14 Alkaline Phosphatase 45 L Total Protein 6.3 Albumin 2.8 L Globulin 3.5 Albumin/Globulin Ratio 0.8 L Folate > 24.00 Misc Test Result Platelets confirmed Blood Type A Negative Antibody Screen NEGATIVE Crossmatch See Detail Blood Bank Wristband ID Yes Blood Bank Comment PLATP Ready ABG Interpretation ABG results: 08/20/25 09:18 VBG pH 7.38 VBG pCO2 29 L VBG pO2 72 H VBG Base Excess -8 L Quality Measures Quality Measures VTE prophylaxis Assessment & Plan Assessment Current Active Medications: Generic Name Dose Route Start Last Admin Trade Name Freq PRN Reason Stop Dose Admin Acetaminophen 650 mg 08/20/25 10:08 Acetaminophen 325 Mg Tablet PO 09/19/25 10:07 Q6H PRN Fever >100.4 and pain Hydrocodone Bitart/Acetaminophen 1 tab 08/20/25 22:40 08/24/25 09:36 Hydrocodone/Apap 10/325 Tab PO 08/25/25 17:05 1 tab Q6HR PRN Administration PAIN Amlodipine Besylate 10 mg 08/23/25 09:00 08/24/25 08:31 Amlodipine Besylate 5 Mg Tablet PO 09/22/25 08:59 Not Given QDAY SHERYL Atorvastatin Calcium 10 mg 08/21/25 21:00 08/23/25 20:59 Atorvastatin Calcium 10 Mg Tablet PO 09/20/25 20:59 10 mg HS SHERYL Administration Dextrose 25 ml 08/20/25 10:14 Dextrose 50%-Water Inj 50 Ml Syringe IV 09/19/25 10:13 Q15MIN PRN BG 50-70 responsive npo pt Dextrose 50 ml 08/20/25 10:14 Dextrose 50%-Water Inj 50 Ml Syringe IV 09/19/25 10:13 Q15MIN PRN BG <50 OR BG <70 & pt unresponsive Furosemide 40 mg 08/22/25 18:00 08/24/25 05:30 Furosemide Inj 10 Mg/Ml 4ml Vial IVP 09/21/25 17:59 40 mg BIDD SHERYL Administration Gabapentin 400 mg 08/20/25 21:00 08/24/25 08:34 Gabapentin 100 Mg Capsule PO 09/19/25 20:59 400 mg BID SHERYL Administration Glucagon 1 mg 08/20/25 10:14 Glucagon Inj 1 Mg Vial IM Q15MIN PRN BG <70, and no IV access Heparin Sodium (Porcine) 3,100 unit 08/22/25 12:44 08/23/25 09:50 Heparin Sod Inj 1000 Unit/Ml Vial 10 Ml INDWELLCAT 09/05/25 12:43 3,100 unit PRN PRN Administration DIALYSIS Insulin Degludec 15 unit 08/20/25 21:00 08/23/25 21:08 Insulin Degludec 5 Unit/0.05 Ml (Per 5 Units) SC 09/19/25 20:59 15 unit HS SHERYL Administration Insulin Human Lispro 0 unit 08/22/25 07:51 08/24/25 13:04 Insulin Lispro (Admelog) 1 Unit/0.01 Ml Unit SC 09/20/25 11:29 Not Given ACHS SHERYL Protocol Lactulose 20 gm 08/20/25 22:00 08/24/25 15:12 Lactulose Syrup 20 Gm/30 Ml Udc PO 09/19/25 21:59 20 gm TID SHERYL Administration Protocol Ondansetron HCl 4 mg 08/20/25 10:08 Ondansetron Inj 2 Mg/Ml Inj 2 Ml IVP 09/19/25 10:07 Q6H PRN NAUSEA OR VOMITING Protocol Pantoprazole Sodium 40 mg 08/22/25 09:00 08/24/25 08:34 Pantoprazole Inj 40 Mg Vial IV 09/21/25 08:59 40 mg QDAY SHERYL Administration Propranolol HCl 10 mg 08/20/25 21:00 08/24/25 08:31 Propranolol 10 Mg Tablet PO 09/19/25 20:59 Not Given BID SHERYL Sevelamer Carbonate 800 mg 08/23/25 12:00 08/24/25 12:59 Sevelamer Carbonate 800 Mg Tablet PO 09/22/25 11:59 800 mg TIDWM SHERYL Administration Sodium Bicarbonate 650 mg 08/21/25 14:00 08/24/25 15:12 Sodium Bicarbonate 650 Mg Tablet PO 09/20/25 13:59 650 mg TID SHERYL Administration Plan Ms Hopper is a 55 year old woman with a hx significant for advanced CKD that has now progressed to ESRD, HFpEF 55-60 12/2024, HLD, HTN, who presented with malaise and shortness of breath, found to be significantly volume overloaded, with elevated BUN and Cr, admitted for dialysis vs diuresis, given pt with severe thrombocytopenia 2/2 cirrhosis defer Nephrology consulted, Dr Neil. Plan for IV diuresis and dialysis, s/p tunneled cath placement. pt pending authorization for snf, pt recommended. #Hx of Advanced CKD, now with ESRD #Chronic Normocytic Anemia #Hyperkalemia #Hyperphosphatemia #AGAMA Worsening BUN, Cr, low bicarb, electrolyte abnormalities Day 2/3 of HD (tolerating well), received 2 unit PRBC with HD and 1 unit platelet Plan: - Dr. Neil consulted, appreciate recs - s/p tunneled HD cath placement after PLT, ctm for hematoma formation or increased oozing given thrombocytopenia - Continue IV lasix as below - sodium bicarb tab 650 mg PO TID - start sevalamer 800 mg PO TID 08/23 #Acute CHF exaccerbation #HFpEF (echo 12/2024 w EF 55-60%) #Type II NSTEMI - troponin downtrending Weight on admission 129.27 kg Likely 2/2 ESRD (see above) BNP 200s Trend troponin, till peaked : 0.106-->0.124 --> 0.097 Plan: - Cardiology Consulted, Nicholas, appreciate recs - Strict I and O - Daily Weights - Lasix 40 IV TID --> BID given decreased preload evident in BP trend - will likely improve with HD (see ESRD above) - Propranolol 10 mg PO BID (home med) #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 [place] #Moderate Ascites #Coagulopathy #Hyperammonemia #Thrombocytopenia - downtrending On admit: Ammonia 138, PT 14.7, INR 1.4, plt 43 Hepatitis panel nonreactive MELD: 23, 19.6% 3 month mortality Plan: - Lactulose 20 TID - Lasix as above #Type 2 DM, insulin dependent A1c 6.5 Home regimen 35 U long acting BID , 20 U short acting tid with meals, Ozempic SC qweekly Uses freestyle merna Plan: - ISS Step 2 - Degludec 15 #HTN Plan: - Amlodipine 10 mg PO daily #HLD Plan: - Atorvastatin 10 mg PO DHS Gout Plan: - hold home Ursodiole mg PO TID i/s/o ESRD (see above) Diabetic Neuropathy Ambulates with a 4 wheel walker Plan: - Gabapentin 400 mg PO BID - PT consulted, recommend snf #PHUONG Large neck circumference. Daignosed with PHUONG, never recieved CPAP machine at home Plan: - Discharge with CPAP - CPAP qhs prn while inpatient #Chronic low back pain Plan: - [place] 10 mg q6h PRN Checklist Dispo: s/p tunneled cath, dialysis, IV duresis with lasix. plan for outpatient hd. pending snf auth Lines: PIV Diet: Renal Diet, carb consistent Bowel Reg: Lactulose 20 TID VTE ppx: SCD given low plt GI ppx: Pantoprazole 40 mg IV daily Pain mgmt: Tylenol PRN, [place] 10 mg q6h PRN Code status: full Plan discussed with my attending Dr. Rossi and my senior Dr. Pierre King MD PGY1 Attending Provider Attestation/Addendum I have seen and examined the patient. I was physically present for the blank portions of the services provided including history, physical exam, diagnosis, treatment plans and orders. I agree with assessment and plan of care as documented by residents. Patient seen and examined at bedside this morning. Appears comfortable and denies any new complaints. Underwent hemodialysis catheter placement. Continues to be on IV diuresis, sevelamer. Continues to be on insulin regimen for diabetes. Underwent physical therapy evaluation, PT recommended SNF placement. Even though this this note was carefully revised there may still be minor errors in public policy professor due to voice recognition software. Trinidad Rossi MD
[2025-08-24] MEDS: INSULIN LISPRO (AdmeLOG) 1 UNIT/0.01 ML UNIT SC ×2 (17:34→21:03)
[2025-08-24 18:40] LABS: OBS Developer Expiration Date 2027-02-28; OBS Performed By loped2; OBS QC OK? Yes; Occult Blood, Stool Positive (Negative)
[2025-08-24] MEDS: PROPRANOLOL 10 MG TABLET PO (21:02)
[2025-08-24] MEDS: ATORVASTATIN CALCIUM 10 MG TABLET PO (21:02)
[2025-08-24] MEDS: INSULIN DEGLUDEC 5 UNIT/0.05 ML (PER 5 UNITS) 15 UNIT SC (21:03)
--- NOTE | 2025-08-24 22:10 | PC.NURSE ---
PT DESAT TO 70% WHILE SLEEPING ON ROOM AIR. PT EASILY AWAKEN TO CALL OF NAME ,AND SPO2 WENT UP TO 96%. PT STATED SHE PREFERS TO USE O2 WHILE SLEEPING, 2LPM O2 BY NC APPLIED, SATS 97%. ON CONTINUOS PULSE OX. CALL LIGHT WITHIN REACH.
[2025-08-25] VITALS (31 sets, daily range): BP systolic 108–166; BP diastolic 45–66; PULSE 70–84; RESP 15–23; TEMP 36.3–36.9; O2SAT 97–100; BMI 60.1; BMI 12.0
[2025-08-25 05:37] LABS: Basophils # (Auto) 0.0 Thou/mm3 (0.0-0.2); Basophils % (Auto) 0 % (0-2.5); Eosinophils # (Auto) 0.1 Thou/mm3 (0.0-0.5); Eosinophils % (Auto) 2 % (0-10); Hematocrit 23.7 % (36.0-46.0); Immature Granulocytes Auto 0.05 Thou/mm3 (0.00-0.00); Lymphocytes # (Auto) 0.4 Thou/mm3 (1.0-4.8); Lymphocytes % (Auto) 12 % (10-50); Mean Corpuscular HGB Conc 31.6 g/dl (31.0-37.0); Mean Corpuscular Hemoglobin 30.2 pg (25.0-35.0); Mean Corpuscular Volume 96 fL (80-100); Monocytes # (Auto) 0.5 Thou/mm3 (0.0-0.8); Monocytes % (Auto) 14 % (0-12); Neutrophils # (Auto) 2.3 Thou/mm3 (1.8-7.7); Neutrophils % (Auto) 70 % (37-80); Nucleated Red Blood Cell # 0.00 Thou/mm3 (0.00-0.00); Nucleated Red Blood Cell % 0 /100 WBC (0); RDW Standard Deviation 55.5 fL (36.4-46.3); Red Blood Count 2.48 Miln/mm3 (4.00-5.20); White Blood Count 3.2 Thou/mm3 (3.6-11.0)
[2025-08-25 05:41] LABS: Hemoglobin 7.5 g/dL (12.0-16.0)
[2025-08-25 05:42] LABS: Platelet Count 24 Thou/mm3 (140-440)
[2025-08-25] MEDS: FUROSEMIDE INJ 10 MG/ML 4ML VIAL 40 MG IVP ×2 (05:53→17:17)
[2025-08-25] MEDS: SODIUM BICARBONATE 650 MG TABLET PO (05:53)
[2025-08-25] MEDS: LACTULOSE SYRUP 20 GM/30 ML UDC PO (05:56)
[2025-08-25 05:58] LABS: Slide Review Platelets confirmed
[2025-08-25 06:24] LABS: Alanine Aminotransferase 13 U/L (10-49); Albumin, Serum 2.6 gm/dL (3.5-5.0); Albumin/Globulin Ratio 0.7 (1.2-2.2); Alkaline Phosphatase 51 U/L (46-116); Anion Gap 11 (7-16); Aspartate Amino Transferase 26 U/L (0-34); BUN/Creatinine Ratio 7 Ratio (12-20); Bilirubin,Total 0.8 mg/dL (0.3-1.2); Blood Urea Nitrogen 50 mg/dL (9-23); Calcium 7.7 mg/dL (8.3-10.6); Calcium (Corrected) 8.8 mg/dL (8.5-10.1); Carbon Dioxide 26.0 mMol/L (20.0-31.0); Chloride 99 mMol/L (98-107); Creatinine (Component) 7.1 mg/dL (0.6-1.3); Estimated Creatinine Clearance 12.4 mL/min (>60); Globulin 3.6 gm/dL (2.3-3.5); Glucose 258 mg/dL (74-106); Magnesium 2.0 mg/dL (1.6-2.6); Osmolality,Calculated 294 (275-295); Phosphorous 6.8 mg/dL (2.4-5.1); Potassium 4.0 mMol/L (3.4-5.1); Sodium 136 mMol/L (136-145); Total Protein 6.2 gm/dL (5.7-8.2); eGFR 6 See Note
--- NOTE | 2025-08-25 07:23 | PD.RESPRO ---
Documentation for date of: 08/25/25 Subjective Subjective Interval history: patient seen and examined while in HD Given downtrending hgb, she is recieving 1 unit prbc with hd she reports improved symptoms GI consulted given fobt positive and c/f upper gi bleed given hx of varices , npo at midnight pending EGD tomorrow Exam Vital Signs Temp Pulse Resp BP Pulse Ox O2 Del Method O2 Flow Rate 98.2 F 74 20 120/60 99 Nasal Cannula 2 08/25/25 04:00 08/25/25 05:53 08/25/25 04:00 08/25/25 05:53 08/25/25 04:00 08/25/25 04:00 08/25/25 04:00 Narrative Exam General: No acute distress, well nourished, obese, seen in HD Eye: PERRL, EOMI, normal conjunctiva, no scleral icterus HENT: Normocephalic, atraumatic, normal hearing, moist oral mucosa. ample anterior soft tissue, large neck circumference Neck: Supple, non-tender, no JVD, no lymphadenopathy, tunneled hd cath in the R chest, with no signs of hematoma or excesssive oozing from site. Lungs: trace crackles bilaterally , on 2L Heart: Normal S1 and S2, no S3 or S4 appreciated. Normal rate and regular rhythm, no murmurs, rubs gallops.2+ pitting edema of bilateral LEs. L>R at the ankles and feet up to the mid shins Abdomen: Soft, non-tender, non-distended, normal bowel sounds. No guarding or rebound tenderness. Musculoskeletal: Normal range of motion and strength, no tenderness or swelling Skin: Skin is warm, dry, no rashes or lesions. Neurologic: Alert, awake and oriented x3. CN II-XII grossly intact. No focal neuro deficits. No signs of meningeal irritation noted. Psychiatric: Cooperative, appropriate mood and affect Objective Labs 08/25/25 04:58 08/25/25 04:58 Labs: Laboratory Results - last 24 hr 08/23/25 08/24/25 08/24/25 08: 05:10 17:12 WBC RBC Hgb Hct MCV MCH MCHC RDW Std Deviation Plt Count Neut % (Auto) Lymph % (Auto) Fergus % (Auto) Eos % (Auto) Baso % (Auto) Neut # (Auto) Lymph # (Auto) Fergus # (Auto) Eos # (Auto) Baso # (Auto) Immature Gran # (Auto) Absolute Nucleated RBC Immature Gran % Nucleated RBC % Sodium Potassium Chloride Carbon Dioxide Anion Gap BUN Creatinine Estim Creat Clear Calc eGFR BUN/Creatinine Ratio Glucose Calculated Osmolality Calcium Corrected Calcium Phosphorus Magnesium Total Bilirubin AST ALT Alkaline Phosphatase Total Protein Albumin Globulin Albumin/Globulin Ratio Stool Occult Blood Positive A Misc Test Result Platelets confirmed Blood Type A Negative Antibody Screen NEGATIVE Crossmatch See Detail Blood Bank Wristband ID Yes Blood Bank Comment PLATP Ready 08/25/25 04:58 WBC 3.2 L RBC 2.48 L Hgb 7.5 L Hct 23.7 L MCV 96 MCH 30.2 MCHC 31.6 RDW Std Deviation 55.5 H Plt Count 24 L* Neut % (Auto) 70 Lymph % (Auto) 12 Fergus % (Auto) 14 H Eos % (Auto) 2 Baso % (Auto) 0 Neut # (Auto) 2.3 Lymph # (Auto) 0.4 L Fergus # (Auto) 0.5 Eos # (Auto) 0.1 Baso # (Auto) 0.0 Immature Gran # (Auto) 0.05 H Absolute Nucleated RBC 0.00 Immature Gran % 2 H Nucleated RBC % 0 Sodium 136 Potassium 4.0 Chloride 99 Carbon Dioxide 26.0 Anion Gap 11 BUN 50 H Creatinine 7.1 H* D Estim Creat Clear Calc 12.4 L eGFR 6 L* BUN/Creatinine Ratio 7 L Glucose 258 H D Calculated Osmolality 294 Calcium 7.7 L Corrected Calcium 8.8 Phosphorus 6.8 H Magnesium 2.0 Total Bilirubin 0.8 AST 26 ALT 13 Alkaline Phosphatase 51 Total Protein 6.2 Albumin 2.6 L Globulin 3.6 H Albumin/Globulin Ratio 0.7 L Stool Occult Blood Misc Test Result Platelets confirmed Blood Type Antibody Screen Crossmatch Blood Bank Wristband ID Blood Bank Comment ABG Interpretation ABG results: 08/20/25 09:18 VBG pH 7.38 VBG pCO2 29 L VBG pO2 72 H VBG Base Excess -8 L Quality Measures Quality Measures VTE prophylaxis Assessment & Plan Assessment Current Active Medications: Generic Name Dose Route Start Last Admin Trade Name Freq PRN Reason Stop Dose Admin Acetaminophen 650 mg 08/20/25 10:08 Acetaminophen 325 Mg Tablet PO 09/19/25 10:07 Q6H PRN Fever >100.4 and pain Hydrocodone Bitart/Acetaminophen 1 tab 08/20/25 22:40 08/24/25 20:48 Hydrocodone/Apap 10/325 Tab PO 08/25/25 17:05 1 tab Q6HR PRN Administration PAIN Amlodipine Besylate 10 mg 08/23/25 09:00 08/24/25 08:31 Amlodipine Besylate 5 Mg Tablet PO 09/22/25 08:59 Not Given QDAY SHERYL Atorvastatin Calcium 10 mg 08/21/25 21:00 08/24/25 21:02 Atorvastatin Calcium 10 Mg Tablet PO 09/20/25 20:59 10 mg HS SHERYL Administration Dextrose 25 ml 08/20/25 10:14 Dextrose 50%-Water Inj 50 Ml Syringe IV 09/19/25 10:13 Q15MIN PRN BG 50-70 responsive npo pt Dextrose 50 ml 08/20/25 10:14 Dextrose 50%-Water Inj 50 Ml Syringe IV 09/19/25 10:13 Q15MIN PRN BG <50 OR BG <70 & pt unresponsive Furosemide 40 mg 08/22/25 18:00 08/25/25 05:53 Furosemide Inj 10 Mg/Ml 4ml Vial IVP 09/21/25 17:59 40 mg BIDD SHERYL Administration Gabapentin 400 mg 08/20/25 21:00 08/24/25 21:02 Gabapentin 100 Mg Capsule PO 09/19/25 20:59 400 mg BID SHERYL Administration Glucagon 1 mg 08/20/25 10:14 Glucagon Inj 1 Mg Vial IM Q15MIN PRN BG <70, and no IV access Heparin Sodium (Porcine) 3,100 unit 08/22/25 12:44 08/23/25 09:50 Heparin Sod Inj 1000 Unit/Ml Vial 10 Ml INDWELLCAT 09/05/25 12:43 3,100 unit PRN PRN Administration DIALYSIS Insulin Degludec 15 unit 08/20/25 21:00 08/24/25 21:03 Insulin Degludec 5 Unit/0.05 Ml (Per 5 Units) SC 09/19/25 20:59 15 unit HS SHERYL Administration Insulin Human Lispro 0 unit 08/22/25 07:51 08/24/25 21:03 Insulin Lispro (Admelog) 1 Unit/0.01 Ml Unit SC 09/20/25 11:29 4 unit ACHS SHERYL Administration Protocol Lactulose 20 gm 11/22/25 22:00 08/25/25 05:56 Lactulose Syrup 20 Gm/30 Ml Udc PO 09/19/25 21:59 20 gm TID SHERYL Administration Protocol Ondansetron HCl 4 mg 08/20/25 10:08 Ondansetron Inj 2 Mg/Ml Inj 2 Ml IVP 09/19/25 10:07 Q6H PRN NAUSEA OR VOMITING Protocol Pantoprazole Sodium 40 mg 08/22/25 09:00 08/24/25 08:34 Pantoprazole Inj 40 Mg Vial IV 09/21/25 08:59 40 mg QDAY SHERYL Administration Propranolol HCl 10 mg 08/20/25 21:00 08/24/25 21:02 Propranolol 10 Mg Tablet PO 09/19/25 20:59 10 mg BID SHERYL Administration Sevelamer Carbonate 800 mg 08/23/25 12:00 08/24/25 17:35 Sevelamer Carbonate 800 Mg Tablet PO 09/22/25 11:59 800 mg TIDWM SHERYL Administration Sodium Bicarbonate 650 mg 08/21/25 14:00 08/25/25 05:53 Sodium Bicarbonate 650 Mg Tablet PO 09/20/25 13:59 650 mg TID SHERYL Administration Plan Ms Hopper is a 55 year old woman with a hx significant for advanced CKD that has now progressed to ESRD, HFpEF 55-60 12/2024, HLD, HTN, who presented with malaise and shortness of breath, found to be significantly volume overloaded, with elevated BUN and Cr, Nephrology consulted, Dr Neil. started on dialysis, s/p tunneled cath placement. pt pending authorization for snf, pt recommended. GI consulted and pending EGD. 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 Ny: gastritis, gastric varices, banding not attempted given low PLT, grade 1 esophageal varices that were too small to band. recommend peptic ulcer diet, Plan - GI consulted, appreciate recs - Protonix IV twice daily - NPO at midnight pending EGD tomorrow. #Hx of Advanced CKD, now with ESRD #Chronic Normocytic Anemia #Hyperkalemia - resolved #Hyperphosphatemia- downtrending Worsening BUN, Cr, low bicarb, electrolyte abnormalities Day 2/3 of HD (tolerating well), received 2 unit PRBC with HD and 1 unit platelet Plan: - Dr. Neil consulted, appreciate recs - s/p tunneled HD cath placement after PLT - Continue IV lasix as below - sodium bicarb tab 650 mg PO TID - start sevalamer 800 mg PO TID 08/23 #Acute CHF exaccerbation #HFpEF (echo 12/2024 w EF 55-60%) #Type II NSTEMI - troponin downtrending Weight on admission 129.27 kg Likely 2/2 ESRD (see above) BNP 200s Trend troponin, till peaked : 0.106-->0.124 --> 0.097 Plan: - Cardiology Consulted, Nicholas, appreciate recs - Strict I and O - Daily Weights - Lasix 40 IV TID --> BID given decreased preload evident in BP trend - will likely improve with HD (see ESRD above) - Propranolol 10 mg PO BID (home med) #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 [place] #Moderate Ascites #Coagulopathy #Hyperammonemia #Thrombocytopenia - downtrending On admit: Ammonia 138, PT 14.7, INR 1.4, plt 43 Hepatitis panel nonreactive MELD: 23, 19.6% 3 month mortality Plan: - Lactulose 20 TID - Lasix as above #Type 2 DM, insulin dependent A1c 6.5 Home regimen 35 U long acting BID , 20 U short acting tid with meals, Ozempic SC qweekly Uses freestyle merna Plan: - ISS Step 2 - Degludec 15 -->20 #HTN Plan: - Amlodipine 10 mg PO daily #HLD Plan: - Atorvastatin 10 mg PO DHS Gout Plan: - hold home Ursodiole mg PO TID i/s/o ESRD (see above) Diabetic Neuropathy Ambulates with a 4 wheel walker Plan: - Gabapentin 400 mg PO BID - PT consulted, recommend snf #PHUONG Large neck circumference. patient desats to 70s on NC when sleeping, needs to use cpap at night. Daignosed with PHUONG, never recieved CPAP machine at home Plan: - Discharge with CPAP - CPAP qhs while inpatient #Chronic low back pain Plan: - [place] 10 mg q6h PRN #orthostatic tremors prior ED presntation with tremors, had been evaluated by Dr. Yessica LP performed in 11/2024, recommended outpatient follow up as needed. pt is also very deconditioned given she is largely bed bound, plan for snf for continued PT and strengthening. Checklist Dispo: s/p tunneled cath, dialysis, IV duresis with lasix. plan for outpatient hd. pending snf auth Lines: PIV Diet: Renal Diet, carb consistent Bowel Reg: Lactulose 20 TID VTE ppx: SCD given low plt GI ppx: Pantoprazole 40 mg IV twice daily Pain mgmt: Tylenol PRN, [place] 10 mg q6h PRN Code status: full Plan discussed with my attending Dr. Rossi and my senior Dr. Pierre King MD PGY1 Attending Provider Attestation/Addendum I have seen and examined the patient. I was physically present for the blank portions of the services provided including history, physical exam, diagnosis, treatment plans and orders. I agree with assessment and plan of care as documented by residents. Patient seen and examined at bedside this morning. Appears comfortable and denies any new complaints. Underwent hemodialysis, tolerated well. Noted to have downtrending hemoglobin, receiving 1 unit of PRBC along with hemodialysis. Patient had positive FOBT, we will obtain GI consult for evaluation of GI bleeding and start patient on Protonix IV twice daily. Patient is planned for EGD tomorrow, we will keep her n.p.o. after midnight. Even though this this note was carefully revised there may still be minor errors in engine dynamometer tester due to voice recognition software. Trinidad Rossi MD
[2025-08-25] MEDS: INSULIN LISPRO (AdmeLOG) 1 UNIT/0.01 ML UNIT SC ×3 (07:41→21:24)
[2025-08-25] MEDS: GABAPENTIN 100 MG CAPSULE 400 MG PO ×2 (08:26→21:24)
[2025-08-25] MEDS: SEVELAMER CARBONATE 800 MG TABLET PO ×2 (08:26→17:17)
--- NOTE | 2025-08-25 11:10 | PD.IMCONS ---
HPI Data of Consult Requesting Physician: Trinidad Rossi MD Primary Care Provider: Flip Ferraro MD Consult Narrative Reason for consult: Hemoccult positive stool drop in H&H to 6.8 and 21.3 History of present illness: 55 years old female I been consulted for a hemoglobin of 6.8 and 21.3 requiring blood transfusion Patient has been in the hospital since 08/19/2025 when her presenting hemoglobin hematocrit of 7.0 and 22.3 with a platelet count of 43,000 It did drop down to 6.8 and 21.3 requiring blood transfusion and it went up to 8.6 and 28.5 Hemoglobin subsequently dropped to now 7.5 requiring blood transfusion today Patient does have a history of end-stage renal disease on hemodialysis She has a history of Neumann cirrhosis with thrombocytopenia leukopenia and at 1 point she was on a transplant list but taken off because of the morbid obesity Upper endoscopy on 01/06/2025 showed 1+ esophageal varices diffuse gastritis and hypertensive portal gastropathy No history of any cassi blood in the stool but she is Hemoccult positive cc:: cc: Trinidad Rossi MD Review of Systems Review of Systems Systems Reviewed: All systems reviewed, normal except as documented Past Medical History Surgical History OTHER SURGICAL HX: As in the history of present illness Meds Home Medications and Allergies Home Medications ?Medication ?Instructions ?Recorded ?Confirmed ?Type insulin glargine 100 unit/mL (3 35 unit subcut BID 09/30/18 08/20/25 History mL) subcutaneous pen (Basaglar KwikPen U-100 Insulin) ursodiol 300 mg capsule 300 mg PO TID 09/30/18 08/20/25 History ascorbic acid (vitamin C) 1,000 mg 1,000 mg PO DAILY 10/27/23 08/20/25 History tablet (Vitamin C) atorvastatin 10 mg tablet 10 mg PO HS 10/27/23 08/20/25 History cholecalciferol (vitamin D3) 25 50 mcg PO QDAY 10/27/23 08/23/25 History mcg (1,000 unit) tablet (Vitamin D3) propranolol 10 mg tablet 10 mg PO BID 10/27/23 08/20/25 History medroxyprogesterone 10 mg tablet 10 mg PO BID 01/05/25 08/23/25 History semaglutide 0.25 mg or 0.5 mg (2 0.5 mg subcut .abdullahi week 01/05/25 08/20/25 History mg/3 mL) subcutaneous pen injector (Ozempic) zinc sulfate 50 mg zinc (220 mg) 50 mg PO QDAY 01/05/25 08/20/25 History capsule hydrocodone 10 mg-acetaminophen 1 tab PO Q12H PRN pain 05/08/25 08/20/25 History 325 mg tablet medroxyprogesterone 5 mg tablet 5 mg PO DAILY 05/08/25 08/20/25 History B complex-vitamin C-folic acid 1 tab .Route DAILY 08/20/25 08/23/25 History metolazone 5 mg tablet 5 mg PO DAILY 08/23/25 08/23/25 History Held on 08/24/25. Instructions: Resume on 09/07/25. 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 Allergies Allergy/AdvReac Type Severity Reaction Status Date / Time tramadol Allergy Severe Hives Verified 08/19/25 20:21 ciprofloxacin Allergy Mild Rash Verified 08/19/25 20:21 hydroxyzine Allergy Headache Verified 08/19/25 20:21 Iodinated Contrast Media Allergy Verified 08/19/25 20:21 Exam Vital Signs Temp Pulse Resp BP Pulse Ox O2 Del Method O2 Flow Rate 98.0 F 71 16 121/55 L 98 Nasal Cannula 2 08/25/25 09:49 08/25/25 11:00 08/25/25 09:49 08/25/25 11:00 08/25/25 09:49 08/25/25 08:00 08/25/25 09:49 Constitutional Comments: Alert oriented Routine Respiratory Exam Comments: Normal to auscultation Routine Abdominal Exam Comments: Soft nontender Results Labs 08/25/25 04:58 08/25/25 04:58 Labs: Short CBC 08/25/25 Range/Units 04:58 WBC 3.2 L (3.6-11.0) Thou/mm3 Hgb 7.5 L (12.0-16.0) g/dL Hct 23.7 L (36.0-46.0) % Plt Count 24 L* (140-440) Thou/mm3 BMP 08/25/25 04:58 Sodium 136 Potassium 4.0 Chloride 99 Carbon Dioxide 26.0 BUN 50 H Creatinine 7.1 H* D Glucose 258 H D Calcium 7.7 L Liver Function 08/25/25 Range/Units 04:58 Total Bilirubin 0.8 (0.3-1.2) mg/dL AST 26 (0-34) U/L ALT 13 (10-49) U/L Alkaline Phosphatase 51 (46-116) U/L Albumin 2.6 L (3.5-5.0) gm/dL ABG Interpretation ABG results: 08/20/25 09:18 VBG pH 7.38 VBG pCO2 29 L VBG pO2 72 H VBG Base Excess -8 L Assessment and Plan Additional Assessment & Plan Additional Plan: # Hemoccult positive stool with drop in hemoglobin hematocrit requiring blood transfusion on a weekly basis Plan N.p.o. midnight tonight except p.o. meds Consent obtained in the dialysis room for fiberoptic esophagogastroduodenoscopy with possible biopsy possible therapeutic intervention under intravenous moderate sedation scheduled for tomorrow morning Depending on the results of the upper endoscopy patient may need a colonoscopy prior to discharge and as there is no record of colonoscopy on board although she claims she had a colonoscopy in the last 2 [address] 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
[2025-08-25] MEDS: EPOETIN ALFA-EPBX INJ 10,000 UNIT/ML VIAL (ESRD) 10000 UNIT SC (11:35)
[2025-08-25] MEDS: HEPARIN SOD INJ 1000 UNIT/ML VIAL 10 ML 3300 UNIT INDWELLCAT (11:50)
--- NOTE | 2025-08-25 15:07 | PC.SS ---
Rounding note: EGD pending for 08/26/25. PT eval submitted via [facility] to [facility]. Stephanie requesting SS schedule transportation for 1st HD session when patient discharges.
[2025-08-25] MEDS: ATORVASTATIN CALCIUM 10 MG TABLET PO (21:24)
[2025-08-25] MEDS: INSULIN DEGLUDEC 5 UNIT/0.05 ML (PER 5 UNITS) 20 UNIT SC (21:24)
[2025-08-25] MEDS: PROPRANOLOL 10 MG TABLET PO (21:25)
[2025-08-26] VITALS (19 sets, daily range): BP systolic 96–156; BP diastolic 43–74; PULSE 67–78; RESP 12–99; TEMP 36.2–37.3; O2SAT 92–99; BMI 59.0
[2025-08-26] MEDS: FUROSEMIDE INJ 10 MG/ML 4ML VIAL 40 MG IVP (05:16)
[2025-08-26 05:53] LABS: Basophils # (Auto) 0.0 Thou/mm3 (0.0-0.2); Basophils % (Auto) 0 % (0-2.5); Eosinophils # (Auto) 0.1 Thou/mm3 (0.0-0.5); Eosinophils % (Auto) 2 % (0-10); Hematocrit 28.5 % (36.0-46.0); Hemoglobin 9.2 g/dL (12.0-16.0); Immature Granulocytes Auto 0.09 Thou/mm3 (0.00-0.00); Lymphocytes # (Auto) 0.4 Thou/mm3 (1.0-4.8); Lymphocytes % (Auto) 11 % (10-50); Mean Corpuscular HGB Conc 32.3 g/dl (31.0-37.0); Mean Corpuscular Hemoglobin 30.9 pg (25.0-35.0); Mean Corpuscular Volume 96 fL (80-100); Monocytes # (Auto) 0.6 Thou/mm3 (0.0-0.8); Monocytes % (Auto) 16 % (0-12); Neutrophils # (Auto) 2.5 Thou/mm3 (1.8-7.7); Neutrophils % (Auto) 68 % (37-80); Nucleated Red Blood Cell # 0.00 Thou/mm3 (0.00-0.00); Nucleated Red Blood Cell % 0 /100 WBC (0); RDW Standard Deviation 55.0 fL (36.4-46.3); Red Blood Count 2.98 Miln/mm3 (4.00-5.20); White Blood Count 3.6 Thou/mm3 (3.6-11.0)
[2025-08-26 05:57] LABS: Platelet Count 24 Thou/mm3 (140-440)
[2025-08-26 06:37] LABS: Alanine Aminotransferase 9 U/L (10-49); Albumin, Serum 2.8 gm/dL (3.5-5.0); Albumin/Globulin Ratio 0.7 (1.2-2.2); Alkaline Phosphatase 49 U/L (46-116); Anion Gap 10 (7-16); Aspartate Amino Transferase 26 U/L (0-34); BUN/Creatinine Ratio 6 Ratio (12-20); Bilirubin,Total 1.2 mg/dL (0.3-1.2); Blood Urea Nitrogen 39 mg/dL (9-23); Calcium 8.3 mg/dL (8.3-10.6); Calcium (Corrected) 9.3 mg/dL (8.5-10.1); Carbon Dioxide 28.4 mMol/L (20.0-31.0); Chloride 99 mMol/L (98-107); Creatinine (Component) 6.1 mg/dL (0.6-1.3); Estimated Creatinine Clearance 14.3 mL/min (>60); Globulin 3.8 gm/dL (2.3-3.5); Glucose 226 mg/dL (74-106); Magnesium 2.0 mg/dL (1.6-2.6); Osmolality,Calculated 290 (275-295); Phosphorous 5.6 mg/dL (2.4-5.1); Potassium 4.1 mMol/L (3.4-5.1); Sodium 137 mMol/L (136-145); Total Protein 6.6 gm/dL (5.7-8.2); eGFR 8 See Note
[2025-08-26] MEDS: cefTRIAXone/D5w 1gm IV premix 1 GM/50 ML BAG IV (08:13)
[2025-08-26] MEDS: SEVELAMER CARBONATE 800 MG TABLET PO (08:14)
[2025-08-26] MEDS: PROPRANOLOL 10 MG TABLET PO ×2 (08:16→20:41)
[2025-08-26] MEDS: GABAPENTIN 100 MG CAPSULE 400 MG PO ×2 (08:17→20:40)
--- NOTE | 2025-08-26 08:21 | ESPR_ITS ---
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 AM blood glucose better controlled today on 20 degludec. Exam Vital Signs Temp Pulse Resp BP Pulse Ox O2 Del Method O2 Flow Rate 98.2 F 74 14 134/61 H 99 Room Air 1 08/26/25 04:00 08/26/25 08:16 08/26/25 08:13 08/26/25 08:16 08/26/25 04:00 08/26/25 04:00 08/26/25 00:00 Narrative Exam General: No acute distress, well nourished, obese, seen at bedside Eye: PERRL, EOMI, normal conjunctiva, no scleral icterus HENT: Normocephalic, atraumatic, normal hearing, moist oral mucosa. ample anterior soft tissue, large neck circumference Neck: Supple, non-tender, no JVD, no lymphadenopathy, tunneled hd cath in the R chest, some bruising noted on the chest near cath, picture was taken. Lungs: trace crackles bilaterally , on 2L Heart: Normal S1 and S2, no S3 or S4 appreciated. Normal rate and regular rhythm, no murmurs, rubs gallops.2+ pitting edema of bilateral LEs. L>R at the ankles and feet up to the mid shins Abdomen: Soft, non-tender, non-distended, normal bowel sounds. No guarding or rebound tenderness. Musculoskeletal: Normal range of motion and strength, no tenderness or swelling Skin: Skin is warm, dry, no rashes or lesions. Neurologic: Alert, awake and oriented x3. CN II-XII grossly intact. No focal neuro deficits. No signs of meningeal irritation noted. Psychiatric: Cooperative, appropriate mood and affect Objective Labs 08/26/25 05:25 08/26/25 05:25 Labs: Laboratory Results - last 24 hr 08/23/25 08/26/25 08:25 05:25 WBC 3.6 RBC 2.98 L Hgb 9.2 L D Hct 28.5 L MCV 96 MCH 30.9 MCHC 32.3 RDW Std Deviation 55.0 H Plt Count 24 L* Neut % (Auto) 68 Lymph % (Auto) 11 [place] % (Auto) 16 H Eos % (Auto) 2 Baso % (Auto) 0 Neut # (Auto) 2.5 Lymph # (Auto) 0.4 L [place] # (Auto) 0.6 Eos # (Auto) 0.1 Baso # (Auto) 0.0 Immature Gran # (Auto) 0.09 H Absolute Nucleated RBC 0.00 Immature Gran % 3 H Nucleated RBC % 0 Sodium 137 Potassium 4.1 Chloride 99 Carbon Dioxide 28.4 Anion Gap 10 BUN 39 H Creatinine 6.1 H* D Estim Creat Clear Calc 14.3 L eGFR 8 L* BUN/Creatinine Ratio 6 L Glucose 226 H Calculated Osmolality 290 Calcium 8.3 Corrected Calcium 9.3 Phosphorus 5.6 H Magnesium 2.0 Total Bilirubin 1.2 AST 26 ALT 9 L Alkaline Phosphatase 49 Total Protein 6.6 Albumin 2.8 L Globulin 3.8 H Albumin/Globulin Ratio 0.7 L Blood Type A Negative Antibody Screen NEGATIVE Crossmatch See Detail Blood Bank Wristband ID Yes Blood Bank Comment PLATP Ready ABG Interpretation ABG results: 08/20/25 09:18 VBG pH 7.38 VBG pCO2 29 L VBG pO2 72 H VBG Base Excess -8 L Quality Measures Quality Measures VTE prophylaxis Assessment & Plan Assessment Current Active Medications: Generic Name Dose Route Start Last Admin Trade Name Elissa PRN Reason Stop Dose Admin Acetaminophen 650 mg 08/25/25 07:58 Acetaminophen 325 Mg Tablet PO 09/19/25 10:07 Q6H PRN Fever >100.4 and pain 1-3 Amlodipine Besylate 10 mg 08/23/25 09:00 08/26/25 08:14 Amlodipine Besylate 5 Mg Tablet PO 09/22/25 08:59 10 mg QDAY SHERYL Administration Atorvastatin Calcium 10 mg 08/21/25 21:00 08/25/25 21:24 Atorvastatin Calcium 10 Mg Tablet PO 09/20/25 20:59 10 mg HS SHERYL Administration Dextrose 25 ml 08/20/25 10:14 Dextrose 50%-Water Inj 50 Ml Syringe IV 09/19/25 10:13 Q15MIN PRN BG 50-70 responsive npo pt Dextrose 50 ml 08/20/25 10:14 Dextrose 50%-Water Inj 50 Ml Syringe IV 09/19/25 10:13 Q15MIN PRN BG <50 OR BG <70 & pt unresponsive Furosemide 40 mg 08/22/25 18:00 08/26/25 05:16 Furosemide Inj 10 Mg/Ml 4ml Vial IVP 09/21/25 17:59 40 mg BIDD SHERYL Administration Gabapentin 400 mg 08/20/25 21:00 08/26/25 08:17 Gabapentin 100 Mg Capsule PO 09/19/25 20:59 400 mg BID SHERYL Administration Glucagon 1 mg 08/20/25 10:14 Glucagon Inj 1 Mg Vial IM Q15MIN PRN BG <70, and no IV access Heparin Sodium (Porcine) 3,300 unit 08/25/25 11:40 08/25/25 11:50 Heparin Sod Inj 1000 Unit/Ml Vial 10 Ml INDWELLCAT 09/05/25 12:43 3,300 unit PRN PRN Administration DIALYSIS Octreotide Acetate 1,000 mcg/ 102 mls @ 5.1 mls/hr 08/26/25 08:00 Sodium Chloride IV 08/31/25 07:59 .Q20H SHERYL Protocol 50 MCG/HR Ceftriaxone Sodium/Dextrose 1 gm in 50 mls @ 100 mls/hr 08/26/25 07:45 08/26/25 08:13 Rocephin/D5w 1gm Iv Premix IV 09/02/25 07:44 100 mls/hr QDAY SHERYL Administration Insulin Degludec 20 unit 08/25/25 21:00 08/25/25 21:24 Insulin Degludec 5 Unit/0.05 Ml (Per 5 Units) SC 09/24/25 20:59 20 unit HS SHERYL Administration Insulin Human Lispro 0 unit 08/25/25 09:45 08/26/25 08:06 Insulin Lispro (Admelog) 1 Unit/0.01 Ml Unit SC 09/20/25 09:44 Not Given ACHS SHERYL Protocol Lactulose 20 gm 08/20/25 22:00 08/26/25 05:16 Lactulose Syrup 20 Gm/30 Ml Udc PO 09/19/25 21:59 Not Given TID SHERYL Protocol Ondansetron HCl 4 mg 08/20/25 10:08 Ondansetron Inj 2 Mg/Ml Inj 2 Ml IVP 09/19/25 10:07 Q6H PRN NAUSEA OR VOMITING Protocol Pantoprazole Sodium 40 mg 08/25/25 21:00 08/26/25 08:14 Pantoprazole Inj 40 Mg Vial IVP 09/24/25 20:59 40 mg BID SHERYL Administration Propranolol HCl 10 mg 08/20/25 21:00 08/26/25 08:16 Propranolol 10 Mg Tablet PO 09/19/25 20:59 10 mg BID SHERYL Administration Sevelamer Carbonate 800 mg 08/23/25 12:00 08/26/25 08:14 Sevelamer Carbonate 800 Mg Tablet PO 09/22/25 11:59 800 mg TIDWM SHERYL Administration Plan Ms Hopper is a 55 year old woman with a hx significant for advanced CKD that has now progressed to ESRD, HFpEF 55-60 12/2024, HLD, HTN, who presented with malaise and shortness of breath, found to be significantly volume overloaded, with elevated BUN and Cr, Nephrology consulted, Dr Neil. started on dialysis, s/p tunneled cath placement. pt pending authorization for snf, pt recommended. GI consulted and pending EGD. 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 Ny: gastritis, gastric varices, banding not attempted given low PLT, grade 1 esophageal varices that were too small to band. recommend peptic ulcer diet, Plan - GI consulted, appreciate recs - Protonix IV twice daily - Ceftriaxone1 gm qd (08/26- - Octreotide 50 mcg/hr (08/26- - NPO pending EGD 08/26 . #Hx of Advanced CKD, now with ESRD #Chronic Normocytic Anemia #Hyperkalemia - resolved #Hyperphosphatemia- downtrending Worsening BUN, Cr, low bicarb, electrolyte abnormalities Day 2/3 of HD (tolerating well), received 2 unit PRBC with HD and 1 unit platelet Plan: - Dr. 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 Plan: - Lactulose 20 TID - Lasix as above - CTM chest for increased bruising or signs of hematoma at tunneled hd site. #Type 2 DM, insulin dependent A1c 6.5 Home regimen 35 U long acting BID , 20 U short acting tid with meals, Ozempic SC qweekly Uses freestyle merna Plan: - ISS Step 2 - Degludec 15 -->20 #HTN Plan: - Amlodipine 10 mg PO daily #HLD Plan: - Atorvastatin 10 mg PO DHS Gout Plan: - hold home Ursodiole mg PO TID i/s/o ESRD (see above) Diabetic Neuropathy Ambulates with a 4 wheel walker Plan: - Gabapentin 400 mg PO BID - PT consulted, recommend snf #PHUONG Large neck circumference. patient desats to 70s on NC when sleeping, needs to use cpap at night. Daignosed with PHUONG, never recieved CPAP machine at home Plan: - Discharge with CPAP - CPAP qhs while inpatient #Chronic low back pain Plan: - [place] 10 mg q6h PRN #orthostatic tremors prior ED presntation with tremors, had been evaluated by Dr. Juan, LP performed in 11/2024, recommended outpatient follow up as needed. pt is also very deconditioned given she is largely bed bound, plan for snf for continued PT and strengthening. 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 Plan - wound care consulted, appreciate recs Checklist Dispo: s/p tunneled cath, dialysis, IV duresis with lasix. plan for outpatient hd. pending snf auth and EGD for acute hgb drop requiring blood transfusions Lines: PIV Diet: Renal Diet, carb consistent Bowel Reg: Lactulose 20 TID VTE ppx: SCD given low plt GI ppx: Pantoprazole 40 mg IV twice daily Pain mgmt: Tylenol PRN, [place] 10 mg q6h PRN Code status: full Plan discussed with my attending Dr. Enid King MD PGY1 Attending Provider Attestation/Addendum I have seen and examined the patient. I was physically present for the blank portions of the services provided including history, physical exam, diagnosis, treatment plans and orders. I agree with assessment and plan of care as documented by residents. Patient seen and examined at bedside this morning. Appears comfortable and denies any new complaints. Hemoglobin improved after blood transfusion yesterday during hemodialysis. Platelet level remained stable at 24. With history of liver disease and esophageal varices, we will start her on octreotide and IV Rocephin. Patient has not been having good urinary output despite IV Lasix, likely in setting of ESRD. We will discontinue IV Lasix. Patient is planned for EGD today with GI. Currently NPO. Even though this this note was carefully revised there may still be minor errors in dedicated regional driver due to voice recognition software. Trinidad Rossi MD
--- NOTE | 2025-08-26 08:51 | PC.SS ---
Addendum entered by Justyna Granados 08/26/25 10:20: SS received a call from [facility] who will look into TPN assisted as an option. Stephanie @ [facility] will get back to us. LTAC may be an alternate option. Original Note: Follow up note: Patient is pending EGD and colonoscopy. Patient is also pending authorization for SNF at [facility] for short term placement. Possible d/c Friday. If so, patient will start o/p dialysis Friday.
[2025-08-26] MEDS: OCTREOTIDE ACET INJ 1,000 MCG in SODIUM CHLORIDE 0.9% 100 ML 5.1 MCG IV (08:57)
[2025-08-26] MEDS: DiphenhydrAMINE ELIX 25 MG/10 ML UDC 12.5 MG PO (10:42)
[2025-08-26 12:36] LABS: Slide Review Platelets confirmed
--- NOTE | 2025-08-26 16:28 | PC.NURSE ---
pt arrived to floor via hospital bed. no signs of distress. AAOx4, stable vitals, NPO for EGD today
--- NOTE | 2025-08-26 16:57 | PC.NURSE ---
pt to endo via hospital bed
[2025-08-26] MEDS: SODIUM CHLORIDE 0.9% 500 ML 500 ML 125 ML IV (17:17)
--- NOTE | 2025-08-26 17:38 | SUR.PHASEI ---
Pt. arrived to recovery via bed, eyes closed, responds to verbal commands, VSS, no c/o pain or nausea at this time, pt. receiving 4 liters 02 via NC, lung sounds clear, diminished at bases, equal expansion landry., landry. lower extremity pitting edema noted, blood glucose 129 on arrival, report received from Dr. Hernandez and Marsha BONNER.
--- NOTE | 2025-08-26 18:08 | SUR.PHASEI ---
Called and gave report on pt. s/p egd to Alice BONNER on M/S unit.
--- NOTE | 2025-08-26 18:10 | PC.NURSE ---
pt to room from EGD, stable vitals, no signs of distress, requesting beef broth.
--- NOTE | 2025-08-26 18:20 | SUR.PHASEI ---
Pt. transferred to room 357 via bed by staff, VSS, no c/o pain or nausea at this time, IV saline locked, pt. sitting up tolerating ice chips, Alice BONNER assumed care of pt.
[2025-08-26] MEDS: NA SU/NAHCO3/KC/PEG (Golytely) 4,000 ML BTL 4000 ML PO (18:38)
[2025-08-26] MEDS: ATORVASTATIN CALCIUM 10 MG TABLET PO (20:40)
[2025-08-26] MEDS: INSULIN DEGLUDEC 5 UNIT/0.05 ML (PER 5 UNITS) 20 UNIT SC (20:46)
[2025-08-26] MEDS: INSULIN LISPRO (AdmeLOG) 1 UNIT/0.01 ML UNIT SC (20:47)
[2025-08-27] VITALS (29 sets, daily range): BP systolic 106–147; BP diastolic 46–91; PULSE 64–82; RESP 15–25; TEMP 36.1–37; O2SAT 94–100; BMI 61.0
[2025-08-27] MEDS: OCTREOTIDE ACET INJ 1,000 MCG in SODIUM CHLORIDE 0.9% 100 ML 5.1 MCG IV (04:25)
[2025-08-27 06:34] LABS: Basophils # (Auto) 0.0 Thou/mm3 (0.0-0.2); Basophils % (Auto) 1 % (0-2.5); Eosinophils # (Auto) 0.1 Thou/mm3 (0.0-0.5); Eosinophils % (Auto) 3 % (0-10); Hematocrit 31.5 % (36.0-46.0); Hemoglobin 9.7 g/dL (12.0-16.0); Immature Granulocytes Auto 0.07 Thou/mm3 (0.00-0.00); Lymphocytes # (Auto) 0.5 Thou/mm3 (1.0-4.8); Lymphocytes % (Auto) 12 % (10-50); Mean Corpuscular HGB Conc 30.8 g/dl (31.0-37.0); Mean Corpuscular Hemoglobin 31.0 pg (25.0-35.0); Mean Corpuscular Volume 101 fL (80-100); Monocytes # (Auto) 0.5 Thou/mm3 (0.0-0.8); Monocytes % (Auto) 12 % (0-12); Neutrophils # (Auto) 2.9 Thou/mm3 (1.8-7.7); Neutrophils % (Auto) 71 % (37-80); Nucleated Red Blood Cell # 0.00 Thou/mm3 (0.00-0.00); Nucleated Red Blood Cell % 0 /100 WBC (0); RDW Standard Deviation 58.7 fL (36.4-46.3); Red Blood Count 3.13 Miln/mm3 (4.00-5.20); White Blood Count 4.1 Thou/mm3 (3.6-11.0)
[2025-08-27 07:01] LABS: Alanine Aminotransferase < 7 U/L (10-49); Albumin, Serum 2.9 gm/dL (3.5-5.0); Albumin/Globulin Ratio 0.7 (1.2-2.2); Alkaline Phosphatase 52 U/L (46-116); Anion Gap 11 (7-16); Aspartate Amino Transferase 29 U/L (0-34); BUN/Creatinine Ratio 7 Ratio (12-20); Bilirubin,Total 1.3 mg/dL (0.3-1.2); Blood Urea Nitrogen 45 mg/dL (9-23); Calcium 9.0 mg/dL (8.3-10.6); Calcium (Corrected) 9.9 mg/dL (8.5-10.1); Carbon Dioxide 29.0 mMol/L (20.0-31.0); Chloride 97 mMol/L (98-107); Creatinine (Component) 6.8 mg/dL (0.6-1.3); Estimated Creatinine Clearance 12.8 mL/min (>60); Globulin 3.9 gm/dL (2.3-3.5); Glucose 174 mg/dL (74-106); Magnesium 2.1 mg/dL (1.6-2.6); Osmolality,Calculated 289 (275-295); Phosphorous 7.4 mg/dL (2.4-5.1); Potassium 4.1 mMol/L (3.4-5.1); Sodium 137 mMol/L (136-145); Total Protein 6.8 gm/dL (5.7-8.2); eGFR 7 See Note
[2025-08-27 07:04] LABS: Platelet Count 30 Thou/mm3 (140-440)
[2025-08-27 07:46] LABS: Slide Review Platelets confirmed
--- NOTE | 2025-08-27 07:55 | ESPR_ITS ---
<Statement entered by Nydia Jay MD - 08/27/25 14:40> Pt is seen at bedside, currently undergoing golytly prep for colonoscopy. Pt underwent EGD and no active bleeding was identified. Will continue inpatient dialysis as per her schedule MWF. Pt has hyperphosphatemia despite sevelamer because it was held due to patient's n.p.o. status yesterday. Pt no longer appears to be fluid overloaded, saturating on room air, denies SOB therefore will DC lasixs. Hgb be is stable , also pending SNF authorization Patient was seen and examined by me personally. I have directly supervised and reviewed documentation by the team resident and agree with its findings. ------- Plan of care was discussed with the attending, Dr. Enid Jay, PGY-2 Documentation for date of: 08/27/25 Subjective Subjective Interval history: NAEO. VSS. Started GoLytely colonoscopy prep this AM, pending colonoscopy tonight if BMs clear Exam Vital Signs Temp Pulse Resp BP Pulse Ox O2 Del Method O2 Flow Rate 97.0 F 65 15 147/76 H 100 Room Air 4 08/27/25 04:00 08/27/25 04:09 08/27/25 04:00 08/27/25 04:00 08/27/25 04:00 08/27/25 04:00 08/26/25 17:48 Narrative Exam General: No acute distress, well nourished, obese Eye: PERRL, EOMI, normal conjunctiva, no scleral icterus HENT: Normocephalic, atraumatic, normal hearing, moist oral mucosa. ample anterior soft tissue, large neck circumference Neck: Supple, non-tender, no JVD, no lymphadenopathy, tunneled hd cath in the R chest, some bruising noted on the chest near cath Lungs: trace crackles bilaterally , on 2L Heart: Normal S1 and S2, no S3 or S4 appreciated. Normal rate and regular rhythm, no murmurs, rubs gallops.2+ pitting edema of bilateral LEs. L>R at the ankles and feet up to the mid shins Abdomen: Soft, non-tender, non-distended, normal bowel sounds. No guarding or rebound tenderness. Musculoskeletal: Normal range of motion and strength, no tenderness or swelling Skin: Skin is warm, dry, no rashes or lesions. Neurologic: Alert, awake and oriented x3. CN II-XII grossly intact. No focal neuro deficits. No signs of meningeal irritation noted. Psychiatric: Cooperative, appropriate mood and affect Objective Labs 08/28/25 05:38 08/28/25 05:38 Labs: Laboratory Results - last 24 hr 08/23/25 08/26/25 08/27/25 08:25 05:25 05:46 WBC 4.1 RBC 3.13 L Hgb 9.7 L Hct 31.5 L MCV 101 H MCH 31.0 MCHC 30.8 L RDW Std Deviation 58.7 H Plt Count 30 L D Neut % (Auto) 71 Lymph % (Auto) 12 [place] % (Auto) 12 Eos % (Auto) 3 Baso % (Auto) 1 Neut # (Auto) 2.9 Lymph # (Auto) 0.5 L [place] # (Auto) 0.5 Eos # (Auto) 0.1 Baso # (Auto) 0.0 Immature Gran # (Auto) 0.07 H Absolute Nucleated RBC 0.00 Immature Gran % 2 H Nucleated RBC % 0 Sodium 137 Potassium 4.1 Chloride 97 L Carbon Dioxide 29.0 Anion Gap 11 BUN 45 H Creatinine 6.8 H* D Estim Creat Clear Calc 12.8 L eGFR 7 L* BUN/Creatinine Ratio 7 L Glucose 174 H D Calculated Osmolality 289 Calcium 9.0 Corrected Calcium 9.9 Phosphorus 7.4 H Magnesium 2.1 Total Bilirubin 1.3 H AST 29 ALT < 7 L Alkaline Phosphatase 52 Total Protein 6.8 Albumin 2.9 L Globulin 3.9 H Albumin/Globulin Ratio 0.7 L Misc Test Result Platelets confirmed Platelets confirmed Crossmatch See Detail ABG Interpretation ABG results: 08/20/25 09:18 VBG pH 7.38 VBG pCO2 29 L VBG pO2 72 H VBG Base Excess -8 L Quality Measures Quality Measures VTE prophylaxis Assessment & Plan Assessment Current Active Medications: Generic Name Dose Route Start Last Admin Trade Name Freq PRN Reason Stop Dose Admin Hydrocodone Bitart/Acetaminophen 1 tab 08/26/25 10:15 08/26/25 20:41 Hydrocodone/Apap 10/325 Tab PO 08/31/25 10:14 1 tab BID SHERYL Administration Amlodipine Besylate 10 mg 08/23/25 09:00 08/26/25 08:14 Amlodipine Besylate 5 Mg Tablet PO 09/22/25 08:59 10 mg QDAY SHERYL Administration Atorvastatin Calcium 10 mg 08/21/25 21:00 08/26/25 20:40 Atorvastatin Calcium 10 Mg Tablet PO 09/20/25 20:59 10 mg HS SHERYL Administration Dextrose 25 ml 08/20/25 10:14 Dextrose 50%-Water Inj 50 Ml Syringe IV 09/19/25 10:13 Q15MIN PRN BG 50-70 responsive npo pt Dextrose 50 ml 08/20/25 10:14 Dextrose 50%-Water Inj 50 Ml Syringe IV 09/19/25 10:13 Q15MIN PRN BG <50 OR BG <70 & pt unresponsive Gabapentin 400 mg 08/20/25 21:00 08/26/25 20:40 Gabapentin 100 Mg Capsule PO 09/19/25 20:59 400 mg BID SHERYL Administration Glucagon 1 mg 08/20/25 10:14 Glucagon Inj 1 Mg Vial IM Q15MIN PRN BG <70, and no IV access Heparin Sodium (Porcine) 3,300 unit 08/25/25 11:40 08/25/25 11:50 Heparin Sod Inj 1000 Unit/Ml Vial 10 Ml INDWELLCAT 09/05/25 12:43 3,300 unit PRN PRN Administration DIALYSIS Octreotide Acetate 1,000 mcg/ 102 mls @ 5.1 mls/hr 08/26/25 08:00 08/27/25 04:25 Sodium Chloride IV 08/31/25 07:59 50 mcg/hr .Q20H SHERYL 5.1 mls/hr Protocol Administration 50 MCG/HR Ceftriaxone Sodium/Dextrose 1 gm in 50 mls @ 100 mls/hr 08/26/25 07:45 08/26/25 08:13 Rocephin/D5w 1gm Iv Premix IV 09/02/25 07:44 100 mls/hr QDAY SHERYL Administration Albumin Human 25 gm in 100 mls @ 100 mls/hr 08/27/25 07:42 Albuminex 25% Ivpb IV Q30MIN PRN DIALYSIS Insulin Degludec 20 unit 08/25/25 21:00 08/26/25 20:46 Insulin Degludec 5 Unit/0.05 Ml (Per 5 Units) SC 09/24/25 20:59 20 unit HS SHERYL Administration Insulin Human Lispro 0 unit 08/25/25 09:45 08/26/25 20:47 Insulin Lispro (Admelog) 1 Unit/0.01 Ml Unit SC 09/20/25 09:44 4 unit ACHS SHERYL Administration Protocol Lactulose 20 gm 08/20/25 22:00 08/27/25 05:41 Lactulose Syrup 20 Gm/30 Ml Udc PO 09/19/25 21:59 Not Given TID SHERYL Protocol Ondansetron HCl 4 mg 08/20/25 10:08 Ondansetron Inj 2 Mg/Ml Inj 2 Ml IVP 09/19/25 10:07 Q6H PRN NAUSEA OR VOMITING Protocol Pantoprazole Sodium 40 mg 08/25/25 21:00 08/26/25 20:38 Pantoprazole Inj 40 Mg Vial IVP 09/24/25 20:59 40 mg BID SHERYL Administration Propranolol HCl 10 mg 08/20/25 21:00 08/26/25 20:41 Propranolol 10 Mg Tablet PO 09/19/25 20:59 10 mg BID SHERYL Administration Sevelamer Carbonate 800 mg 08/23/25 12:00 08/26/25 16:42 Sevelamer Carbonate 800 Mg Tablet PO 09/22/25 11:59 Not Given TIDWM SHERYL Plan Ms Hopper is a 55 year old woman with a hx significant for advanced CKD that has now progressed to ESRD, HFpEF 55-60 12/2024, HLD, HTN, who presented with malaise and shortness of breath, found to be significantly volume overloaded, with elevated BUN and Cr, Nephrology consulted, Dr Neil. started on dialysis, s/p tunneled cath placement. pt pending authorization for snf, pt recommended. GI consulted and pending EGD. 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 Ny: gastritis, gastric varices, banding not attempted given low PLT, grade 1 esophageal varices that were too small to band. EGD 08/26: Esophagitis, gastritis w/ hemorrhage (characterized by congestion/edema). No bx taken Plan: - GI consulted, appreciate recs - Clear liquid diet. Started GoLytely prep. Pending colonoscopy - Protonix IV twice daily - Ceftriaxone1 gm qd (08/26- 08/27) for SBP ppx - d/c - Octreotide 50 mcg/hr (08/26-08/27) - d/c #Hx of Advanced CKD, now with ESRD #Chronic Normocytic Anemia #Hyperkalemia - resolved #Hyperphosphatemia Worsening BUN, Cr, low bicarb, electrolyte abnormalities Completed 3 days of consecutive HD (tolerating well), has tunneled dialysis catheter Plan: - Dr. 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 Plan: - Lactulose 20 TID - CTM chest for increased bruising or signs of hematoma at tunneled hd site. #Type 2 DM, insulin dependent A1c 6.5 Home regimen 35 U long acting BID , 20 U short acting tid with meals, Ozempic SC qweekly Uses freestyle merna Plan: - ISS Step 2 - Degludec 20 #HTN Plan: - Amlodipine 10 mg PO daily #HLD Plan: - Atorvastatin 10 mg PO DHS #Gout Plan: - hold home Ursodiole mg PO TID i/s/o ESRD (see above) #Diabetic Neuropathy Ambulates with a 4 wheel walker Plan: - Gabapentin 400 mg PO BID - PT consulted, recommend snf #PHUONG Large neck circumference. patient desats to 70s on NC when sleeping, needs to use cpap at night. Daignosed with PHUONG, never recieved CPAP machine at home Plan: - Discharge with CPAP - CPAP qhs while inpatient #Chronic low back pain Plan: - [place] 10 mg q6h PRN #Orthostatic tremors Prior ED presntation with tremors, had been evaluated by Dr. Juan. LP 11/2024, recommended outpatient follow up as needed. 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 Plan - wound care consulted, appreciate recs Checklist Dispo: pending colonoscopy Lines: PIV Diet: Renal Diet, carb consistent Bowel Reg: Lactulose 20 TID VTE ppx: SCD given low plt GI ppx: Pantoprazole 40 mg IV twice daily Pain mgmt: Tylenol PRN, [place] 10 mg q6h PRN Code status: full Plan discussed wit Dr. Carolee Jay and Dr. Enid Reddy MD PGY1 Attending Provider Attestation/Addendum I have seen and examined the patient. I was physically present for the blank portions of the services provided including history, physical exam, diagnosis, treatment plans and orders. I agree with assessment and plan of care as documented by residents. Even though this this note was carefully revised there may still be minor errors in content coordinator due to voice recognition software. Trinidad Rossi MD
[2025-08-27] MEDS: PROPRANOLOL 10 MG TABLET PO ×2 (14:36→20:45)
[2025-08-27] MEDS: GABAPENTIN 100 MG CAPSULE 400 MG PO ×2 (14:36→20:45)
[2025-08-27] MEDS: SEVELAMER CARBONATE 800 MG TABLET PO (14:37)
[2025-08-27] MEDS: NA SU/NAHCO3/KC/PEG (Golytely) 4,000 ML BTL 4000 ML PO (14:38)
--- NOTE | 2025-08-27 16:23 | PC.SS ---
Rounding: Pending colonoscopy, dc plan [facility] pending auth
--- NOTE | 2025-08-27 18:06 | ESPR_ITS ---
Documentation for date of: 08/27/25 Subjective Subjective Interval history: Patient evaluated Hemoglobin hematocrit 9.7 and 31.5 Exam Vital Signs Temp Pulse Resp BP Pulse Ox O2 Del Method O2 Flow Rate 97.6 F 82 18 130/91 H 96 Room Air 2 08/27/25 16:00 08/27/25 16:58 08/27/25 16:00 08/27/25 16:00 08/27/25 16:00 08/27/25 12:00 08/27/25 13:45 Objective Labs 08/27/25 05:46 08/27/25 05:46 Labs: Laboratory Results - last 24 hr 08/27/25 05:46 WBC 4.1 RBC 3.13 L Hgb 9.7 L Hct 31.5 L MCV 101 H MCH 31.0 MCHC 30.8 L RDW Std Deviation 58.7 H Plt Count 30 L D Neut % (Auto) 71 Lymph % (Auto) 12 [place] % (Auto) 12 Eos % (Auto) 3 Baso % (Auto) 1 Neut # (Auto) 2.9 Lymph # (Auto) 0.5 L [place] # (Auto) 0.5 Eos # (Auto) 0.1 Baso # (Auto) 0.0 Immature Gran # (Auto) 0.07 H Absolute Nucleated RBC 0.00 Immature Gran % 2 H Nucleated RBC % 0 Sodium 137 Potassium 4.1 Chloride 97 L Carbon Dioxide 29.0 Anion Gap 11 BUN 45 H Creatinine 6.8 H* D Estim Creat Clear Calc 12.8 L eGFR 7 L* BUN/Creatinine Ratio 7 L Glucose 174 H D Calculated Osmolality 289 Calcium 9.0 Corrected Calcium 9.9 Phosphorus 7.4 H Magnesium 2.1 Total Bilirubin 1.3 H AST 29 ALT < 7 L Alkaline Phosphatase 52 Total Protein 6.8 Albumin 2.9 L Globulin 3.9 H Albumin/Globulin Ratio 0.7 L Misc Test Result Platelets confirmed Impressions Impression: Anemia blood loss GoLytely prep in progress for a colonoscopy ABG Interpretation ABG results: 08/20/25 09:18 VBG pH 7.38 VBG pCO2 29 L VBG pO2 72 H VBG Base Excess -8 L Assessment & Plan A&P Narrative # Hemoccult positive stool with drop in hemoglobin hematocrit requiring blood transfusion on a weekly basis Plan N.p.o. midnight tonight except p.o. meds Consent obtained in the dialysis room for fiberoptic esophagogastroduodenoscopy with possible biopsy possible therapeutic intervention under intravenous moderate sedation scheduled for tomorrow morning Depending on the results of the upper endoscopy patient may need a colonoscopy prior to discharge and as there is no record of colonoscopy on board although she claims she had a colonoscopy in the last [address] Browning in [place] Other medical problems include # End-stage renal disease on hemodialysis # End-stage liver disease due to ROSE cirrhosis with leukopenia and thrombocytopenia Thank you very much for the opportunity to participate in the care of this patient Time Spent With Patient Time: Total time spent is greater than 50% in coordination of care (as documented) at patient's floor/unit and/or counseling patient:
[2025-08-27] MEDS: ATORVASTATIN CALCIUM 10 MG TABLET PO (20:44)
[2025-08-28] VITALS (13 sets, daily range): BP systolic 90–133; BP diastolic 49–64; PULSE 62–76; RESP 10–99; TEMP 36.1–36.6; O2SAT 91–99; BMI 59.8
[2025-08-28 06:15] LABS: Basophils # (Auto) 0.0 Thou/mm3 (0.0-0.2); Basophils % (Auto) 1 % (0-2.5); Eosinophils # (Auto) 0.1 Thou/mm3 (0.0-0.5); Eosinophils % (Auto) 2 % (0-10); Hematocrit 26.5 % (36.0-46.0); Immature Granulocytes Auto 0.03 Thou/mm3 (0.00-0.00); Lymphocytes # (Auto) 0.5 Thou/mm3 (1.0-4.8); Lymphocytes % (Auto) 17 % (10-50); Mean Corpuscular HGB Conc 32.1 g/dl (31.0-37.0); Mean Corpuscular Hemoglobin 31.4 pg (25.0-35.0); Mean Corpuscular Volume 98 fL (80-100); Monocytes # (Auto) 0.5 Thou/mm3 (0.0-0.8); Monocytes % (Auto) 16 % (0-12); Neutrophils # (Auto) 2.1 Thou/mm3 (1.8-7.7); Neutrophils % (Auto) 64 % (37-80); Nucleated Red Blood Cell # 0.00 Thou/mm3 (0.00-0.00); Nucleated Red Blood Cell % 0 /100 WBC (0); RDW Standard Deviation 56.3 fL (36.4-46.3); Red Blood Count 2.71 Miln/mm3 (4.00-5.20); White Blood Count 3.2 Thou/mm3 (3.6-11.0)
[2025-08-28 06:21] LABS: Hemoglobin 8.5 g/dL (12.0-16.0)
[2025-08-28 06:22] LABS: Platelet Count 22 Thou/mm3 (140-440)
[2025-08-28 06:23] LABS: Slide Review Platelets confirmed
[2025-08-28 06:40] LABS: Alanine Aminotransferase < 7 U/L (10-49); Albumin, Serum 2.6 gm/dL (3.5-5.0); Albumin/Globulin Ratio 0.7 (1.2-2.2); Alkaline Phosphatase 45 U/L (46-116); Anion Gap 10 (7-16); Aspartate Amino Transferase 24 U/L (0-34); BUN/Creatinine Ratio 5 Ratio (12-20); Bilirubin,Total 1.2 mg/dL (0.3-1.2); Blood Urea Nitrogen 28 mg/dL (9-23); Calcium 8.0 mg/dL (8.3-10.6); Calcium (Corrected) 9.1 mg/dL (8.5-10.1); Carbon Dioxide 29.2 mMol/L (20.0-31.0); Chloride 99 mMol/L (98-107); Creatinine (Component) 5.7 mg/dL (0.6-1.3); Estimated Creatinine Clearance 15.4 mL/min (>60); Globulin 3.5 gm/dL (2.3-3.5); Glucose 153 mg/dL (74-106); Magnesium 1.9 mg/dL (1.6-2.6); Osmolality,Calculated 284 (275-295); Phosphorous 6.0 mg/dL (2.4-5.1); Potassium 4.4 mMol/L (3.4-5.1); Sodium 138 mMol/L (136-145); Total Protein 6.1 gm/dL (5.7-8.2); eGFR 8 See Note
[2025-08-28] MEDS: GABAPENTIN 100 MG CAPSULE 400 MG PO ×2 (08:33→21:25)
[2025-08-28] MEDS: SEVELAMER CARBONATE 800 MG TABLET PO ×3 (08:33→17:25)
[2025-08-28] MEDS: PROPRANOLOL 10 MG TABLET PO ×2 (08:34→21:26)
--- NOTE | 2025-08-28 08:48 | ESPR_ITS ---
Documentation for date of: 08/28/25 Subjective Subjective Interval history: NAEO. VSS. Almost clear BM, on GoLytely. Patient evaluated at bedside, no new concerns at this time. Exam Vital Signs Temp Pulse Resp BP Pulse Ox O2 Del Method O2 Flow Rate 97.8 F 65 18 122/52 L 97 Room Air 2 08/28/25 08:00 08/28/25 08:34 08/28/25 08:00 08/28/25 08:34 08/28/25 08:00 08/28/25 04:00 08/27/25 19:42 Narrative Exam General: No acute distress, well nourished, obese Eye: PERRL, EOMI, normal conjunctiva, no scleral icterus HENT: Normocephalic, atraumatic, normal hearing, moist oral mucosa. ample anterior soft tissue, large neck circumference Neck: Supple, non-tender, no JVD, no lymphadenopathy, tunneled hd cath in the R chest, some bruising noted on the chest near cath (slightly worse than previous exam) Lungs: trace crackles bilaterally , on 2L Heart: Normal S1 and S2, no S3 or S4 appreciated. Normal rate and regular rhythm, no murmurs, rubs gallops.2+ pitting edema of bilateral LEs. L>R at the ankles and feet up to the mid shins Abdomen: Soft, non-tender, non-distended, normal bowel sounds. No guarding or rebound tenderness. Musculoskeletal: Normal range of motion and strength, no tenderness or swelling Skin: Skin is warm, dry, no rashes or lesions. Neurologic: Alert, awake and oriented x3. CN II-XII grossly intact. No focal neuro deficits. No signs of meningeal irritation noted. Psychiatric: Cooperative, appropriate mood and affect Objective Labs 08/29/25 05:02 08/29/25 13:13 Labs: Laboratory Results - last 24 hr 08/28/25 05:38 WBC 3.2 L RBC 2.71 L Hgb 8.5 L Hct 26.5 L MCV 98 MCH 31.4 MCHC 32.1 RDW Std Deviation 56.3 H Plt Count 22 L* D Neut % (Auto) 64 Lymph % (Auto) 17 [place] % (Auto) 16 H Eos % (Auto) 2 Baso % (Auto) 1 Neut # (Auto) 2.1 Lymph # (Auto) 0.5 L [place] # (Auto) 0.5 Eos # (Auto) 0.1 Baso # (Auto) 0.0 Immature Gran # (Auto) 0.03 H Absolute Nucleated RBC 0.00 Immature Gran % 1 H Nucleated RBC % 0 Sodium 138 Potassium 4.4 Chloride 99 Carbon Dioxide 29.2 Anion Gap 10 BUN 28 H Creatinine 5.7 H* D Estim Creat Clear Calc 15.4 L eGFR 8 L* BUN/Creatinine Ratio 5 L Glucose 153 H Calculated Osmolality 284 Calcium 8.0 L Corrected Calcium 9.1 Phosphorus 6.0 H Magnesium 1.9 Total Bilirubin 1.2 AST 24 ALT < 7 L Alkaline Phosphatase 45 L Total Protein 6.1 Albumin 2.6 L Globulin 3.5 Albumin/Globulin Ratio 0.7 L Misc Test Result Platelets confirmed ABG Interpretation ABG results: 08/20/25 09:18 VBG pH 7.38 VBG pCO2 29 L VBG pO2 72 H VBG Base Excess -8 L Quality Measures Quality Measures VTE prophylaxis Assessment & Plan Assessment Current Active Medications: Generic Name Dose Route Start Last Admin Trade Name Freq PRN Reason Stop Dose Admin Hydrocodone Bitart/Acetaminophen 1 tab 08/26/25 10:15 08/28/25 08:34 Hydrocodone/Apap 10/325 Tab PO 08/31/25 10:14 1 tab BID SHERYL Administration Amlodipine Besylate 10 mg 08/23/25 09:00 08/28/25 08:34 Amlodipine Besylate 5 Mg Tablet PO 09/22/25 08:59 10 mg QDAY SHERYL Administration Atorvastatin Calcium 10 mg 08/21/25 21:00 08/27/25 20:44 Atorvastatin Calcium 10 Mg Tablet PO 09/20/25 20:59 10 mg HS SHERYL Administration Dextrose 25 ml 08/20/25 10:14 Dextrose 50%-Water Inj 50 Ml Syringe IV 09/19/25 10:13 Q15MIN PRN BG 50-70 responsive npo pt Dextrose 50 ml 08/20/25 10:14 Dextrose 50%-Water Inj 50 Ml Syringe IV 09/19/25 10:13 Q15MIN PRN BG <50 OR BG <70 & pt unresponsive Gabapentin 400 mg 08/20/25 21:00 08/28/25 08:33 Gabapentin 100 Mg Capsule PO 09/19/25 20:59 400 mg BID SHERYL Administration Glucagon 1 mg 08/20/25 10:14 Glucagon Inj 1 Mg Vial IM Q15MIN PRN BG <70, and no IV access Heparin Sodium (Porcine) 3,300 unit 08/25/25 11:40 08/25/25 11:50 Heparin Sod Inj 1000 Unit/Ml Vial 10 Ml INDWELLCAT 09/05/25 12:43 3,300 unit PRN PRN Administration DIALYSIS Albumin Human 25 gm in 100 mls @ 100 mls/hr 08/27/25 07:42 Albuminex 25% Ivpb IV Q30MIN PRN DIALYSIS Magnesium Sulfate 4 gm in 50 mls @ 12.5 mls/hr 08/28/25 08:46 Magnesium Sulfate Ivpb IV 08/28/25 12:45 X1 ONE Insulin Degludec 20 unit 08/25/25 21:00 08/27/25 21:13 Insulin Degludec 5 Unit/0.05 Ml (Per 5 Units) SC 09/24/25 20:59 Not Given HS SHERYL Insulin Human Lispro 0 unit 08/28/25 00:01 08/28/25 05:52 Insulin Lispro (Admelog) 1 Unit/0.01 Ml Unit SC 09/27/25 00:00 Not Given Q6H SHERYL Protocol Lactulose 20 gm 08/20/25 22:00 08/28/25 05:51 Lactulose Syrup 20 Gm/30 Ml Udc PO 09/19/25 21:59 Not Given TID SHERYL Protocol Ondansetron HCl 4 mg 08/20/25 10:08 Ondansetron Inj 2 Mg/Ml Inj 2 Ml IVP 09/19/25 10:07 Q6H PRN NAUSEA OR VOMITING Protocol Pantoprazole Sodium 40 mg 08/25/25 21:00 08/28/25 08:34 Pantoprazole Inj 40 Mg Vial IVP 09/24/25 20:59 40 mg BID SHERYL Administration Propranolol HCl 10 mg 08/20/25 21:00 08/28/25 08:34 Propranolol 10 Mg Tablet PO 09/19/25 20:59 10 mg BID SHERYL Administration Sevelamer Carbonate 800 mg 08/23/25 12:00 08/28/25 08:33 Sevelamer Carbonate 800 Mg Tablet PO 09/22/25 11:59 800 mg TIDWM SHERYL Administration Plan Ms Hopper is a 55 year old woman with a hx significant for advanced CKD that has now progressed to ESRD, HFpEF 55-60 12/2024, HLD, HTN, who presented with malaise and shortness of breath, found to be significantly volume overloaded, with elevated BUN and Cr, Nephrology consulted, Dr Neil. started on dialysis, s/p tunneled cath placement. pt pending authorization for snf, pt recommended. GI consulted and pending EGD. 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 Ny: gastritis, gastric varices, banding not attempted given low PLT, grade 1 esophageal varices that were too small to band. EGD 08/26: Esophagitis, gastritis w/ hemorrhage (characterized by congestion/edema). No bx taken s/p Ceftriaxone1 gm qd (08/26- 08/27) for SBP ppx, Octreotide 50 mcg/hr (08/26- 08/27) Plan: - GI consulted, appreciate recs - Clear liquid diet. Started GoLytely prep. Pending colonoscopy - Protonix IV twice daily #Hx of Advanced CKD, now with ESRD #Chronic Normocytic Anemia #Hyperkalemia - resolved #Hyperphosphatemia Worsening BUN, Cr, low bicarb, electrolyte abnormalities Completed 3 days of consecutive HD (tolerating well), has tunneled dialysis catheter Plan: - Dr. 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 Plan: - Lactulose 20 TID - CTM chest for increased bruising or signs of hematoma at tunneled hd site. #Type 2 DM, insulin dependent A1c 6.5 Home regimen 35 U long acting BID , 20 U short acting tid with meals, Ozempic SC qweekly Uses freestyle merna Plan: - ISS Step 2 - Degludec 20 #HTN Plan: - Amlodipine 10 mg PO daily #HLD Plan: - Atorvastatin 10 mg PO DHS #Gout Plan: - hold home Ursodiole mg PO TID i/s/o ESRD (see above) #Diabetic Neuropathy Ambulates with a 4 wheel walker Plan: - Gabapentin 400 mg PO BID - PT consulted, recommend snf #PHUONG Large neck circumference. patient desats to 70s on NC when sleeping, needs to use cpap at night. Daignosed with PHUONG, never recieved CPAP machine at home Plan: - Discharge with CPAP - CPAP qhs while inpatient #Chronic low back pain Plan: - [place] 10 mg q6h PRN #Orthostatic tremors Prior ED presntation with tremors, had been evaluated by Dr. Juan. LP 11/2024, recommended outpatient follow up as needed. 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 Plan - wound care consulted, appreciate recs Checklist Dispo: pending colonoscopy Lines: PIV Diet: Renal Diet, carb consistent Bowel Reg: Lactulose 20 TID VTE ppx: SCD given low plt GI ppx: Pantoprazole 40 mg IV twice daily Pain mgmt: Tylenol PRN, [place] 10 mg q6h PRN Code status: full Plan discussed Dr. Enid Reddy MD PGY1 Attending Provider Attestation/Addendum I have seen and examined the patient. I was physically present for the blank portions of the services provided including history, physical exam, diagnosis, treatment plans and orders. I agree with assessment and plan of care as documented by residents. Even though this this note was carefully revised there may still be minor errors in sap bi developer due to voice recognition software. Trinidad Rossi MD
[2025-08-28] MEDS: Magnesium Sulfate 4 GM Ivpb 4 GM/50 ML BAG IV (09:01)
--- NOTE | 2025-08-28 09:44 | EKG_ITS ---
[facility] Test Date: 2025-08-28 Pat Name: YAQUELIN STONE 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
[2025-08-28] MEDS: NA SU/NAHCO3/KC/PEG (Golytely) 4,000 ML BTL 4000 ML PO (11:08)
--- NOTE | 2025-08-28 14:10 | PD.NEPHPROG ---
Documentation for date of: 08/28/25 Subjective Subjective Interval history: Tele consult via face-time 55-year-old female with a past medical history of hypertension, hyperlipidemia, insulin-dependent type 2 diabetes mellitus, gout, history of severe thrombocytopenia secondary to moderate hypersplenism & Cirrhosis and CKD presented to the ED complaining of worsening shortness of breath and 3+ pitting edema in the lower extremities. Nephrology is consulted for renal failure and to arrange dialysis. Pt c/o shortness breath. Pt has volume overload. Patient is seen and examined. Patient is doing better. Patient is getting dialysis 3 times a week now. Exam Vital Signs Temp Pulse Resp BP Pulse Ox O2 Del Method O2 Flow Rate 97.4 F 62 18 118/49 L 98 Room Air 2 08/28/25 11:53 08/28/25 12:00 08/28/25 11:53 08/28/25 11:53 08/28/25 11:53 08/28/25 11:53 08/28/25 11:15 Narrative Exam GEN. APPEARANCE: Patient is a well-hydrated, well-nourished in no acute distress. HEENT: Patient is normocephalic, atraumatic, EOMI, PERRLA. Throat is without erythema or exudate. Moist oral mucosa. NECK: Neck is supple, no JVD or bruits. CARDIOVASCULAR: Heart is regular in rhythm. S1 and S2 normal. LUNGS\CHEST: Bilateral basal crackles ABDOMEN: Abdomen is soft, nontender, with normal bowel sounds. No pulsatile masses. No rebound, rigidity, or guarding. Normal inspection and palpation. EXTREMITIES: Normal inspection and palpation. No edema, clubbing, or cyanosis. SKIN: Skin is warm and dry without rashes. Normal inspection. MUSCULOSKELETAL: +1-2 edema NEURO: Patient is awake, alert and oriented into 3. No focal weakness or numbness. PSYCHIATRIC: Normal mood and affect. Denies homicidal or suicidal ideation. GENITOURINARY: No CVA tenderness. No flank masses. No suprapubic tenderness or swelling. LYMPHATICS: No adenopathy noted in the inguinal, axillary, or cervical chains. Objective Labs 08/28/25 05:38 08/28/25 05:38 Labs: Laboratory Results - last 24 hr 08/28/25 05:38 WBC 3.2 L RBC 2.71 L Hgb 8.5 L Hct 26.5 L MCV 98 MCH 31.4 MCHC 32.1 RDW Std Deviation 56.3 H Plt Count 22 L* D Neut % (Auto) 64 Lymph % (Auto) 17 [place] % (Auto) 16 H Eos % (Auto) 2 Baso % (Auto) 1 Neut # (Auto) 2.1 Lymph # (Auto) 0.5 L [place] # (Auto) 0.5 Eos # (Auto) 0.1 Baso # (Auto) 0.0 Immature Gran # (Auto) 0.03 H Absolute Nucleated RBC 0.00 Immature Gran % 1 H Nucleated RBC % 0 Sodium 138 Potassium 4.4 Chloride 99 Carbon Dioxide 29.2 Anion Gap 10 BUN 28 H Creatinine 5.7 H* D Estim Creat Clear Calc 15.4 L eGFR 8 L* BUN/Creatinine Ratio 5 L Glucose 153 H Calculated Osmolality 284 Calcium 8.0 L Corrected Calcium 9.1 Phosphorus 6.0 H Magnesium 1.9 Total Bilirubin 1.2 AST 24 ALT < 7 L Alkaline Phosphatase 45 L Total Protein 6.1 Albumin 2.6 L Globulin 3.5 Albumin/Globulin Ratio 0.7 L Misc Test Result Platelets confirmed ABG Interpretation ABG results: 08/20/25 09:18 VBG pH 7.38 VBG pCO2 29 L VBG pO2 72 H VBG Base Excess -8 L Assessment & Plan Assessment and plan (1) Elevated troponin: Status: Acute (2) Acute on chronic kidney failure: Status: Acute (3) Anasarca: Status: Acute (4) Acute renal failure: Status: Acute Assessment and plan: Continue with dialysis as needed. Patient had dialysis yesterday Setting up outpatient dialysis.
--- NOTE | 2025-08-28 17:40 | PD.IMPROG ---
Documentation for date of: 08/28/25 Subjective Subjective Interval history: Patient is still not clear Additional GoLytely being given Hemoglobin downtrending to 8.5 and 26.5 Exam Vital Signs Temp Pulse Resp BP Pulse Ox O2 Del Method O2 Flow Rate 97.0 F 76 17 118/53 L 94 L Room Air 2 08/28/25 16:00 08/28/25 16:00 08/28/25 16:00 08/28/25 16:00 08/28/25 16:00 08/28/25 16:00 08/28/25 11:15 Objective Labs 08/28/25 05:38 08/28/25 05:38 Labs: Laboratory Results - last 24 hr 08/28/25 05:38 WBC 3.2 L RBC 2.71 L Hgb 8.5 L Hct 26.5 L MCV 98 MCH 31.4 MCHC 32.1 RDW Std Deviation 56.3 H Plt Count 22 L* D Neut % (Auto) 64 Lymph % (Auto) 17 [place] % (Auto) 16 H Eos % (Auto) 2 Baso % (Auto) 1 Neut # (Auto) 2.1 Lymph # (Auto) 0.5 L [place] # (Auto) 0.5 Eos # (Auto) 0.1 Baso # (Auto) 0.0 Immature Gran # (Auto) 0.03 H Absolute Nucleated RBC 0.00 Immature Gran % 1 H Nucleated RBC % 0 Sodium 138 Potassium 4.4 Chloride 99 Carbon Dioxide 29.2 Anion Gap 10 BUN 28 H Creatinine 5.7 H* D Estim Creat Clear Calc 15.4 L eGFR 8 L* BUN/Creatinine Ratio 5 L Glucose 153 H Calculated Osmolality 284 Calcium 8.0 L Corrected Calcium 9.1 Phosphorus 6.0 H Magnesium 1.9 Total Bilirubin 1.2 AST 24 ALT < 7 L Alkaline Phosphatase 45 L Total Protein 6.1 Albumin 2.6 L Globulin 3.5 Albumin/Globulin Ratio 0.7 L Misc Test Result Platelets confirmed Impressions Impression: Anemia blood loss Downtrending hemoglobin hematocrit GoLytely prep to continue Colonoscopy tentatively rescheduled for tomorrow ABG Interpretation ABG results: 08/20/25 09:18 VBG pH 7.38 VBG pCO2 29 L VBG pO2 72 H VBG Base Excess -8 L Assessment & Plan A&P Narrative # Hemoccult positive stool with drop in hemoglobin hematocrit requiring blood transfusion on a weekly basis Plan N.p.o. midnight tonight except p.o. meds Consent obtained in the dialysis room for fiberoptic esophagogastroduodenoscopy with possible biopsy possible therapeutic intervention under intravenous moderate sedation scheduled for tomorrow morning Depending on the results of the upper endoscopy patient may need a colonoscopy prior to discharge and as there is no record of colonoscopy on board although she claims she had a colonoscopy in the last [address] 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
--- NOTE | 2025-08-28 20:02 | PC.NURSE ---
Patient pending colonoscopy. Patient is not yet clear. Patient stated during assistance with ADL's that I plan eating tonight . HA Butler told patient that Dr. Ny will come check on her soon.
[2025-08-28] MEDS: ATORVASTATIN CALCIUM 10 MG TABLET PO (21:25)
[2025-08-28] MEDS: INSULIN DEGLUDEC 5 UNIT/0.05 ML (PER 5 UNITS) 20 UNIT SC (21:28)
--- NOTE | 2025-08-28 22:40 | PC.NURSE ---
HA Butler attempted to contact Dr. Ny to get answers to patient concerns. Dr. Ny did not answer call.
--- NOTE | 2025-08-28 23:12 | PC.NURSE ---
Dr. Ny spoke with patient over the phone. Pt wanting to eat due to Dr. Ny not having done colonoscopy. Dr. Ny told patient he will do it in the AM. Pt. okayed to not eat and wait for colonoscopy in the AM.
[2025-08-28] MEDS: ZOLPIDEM 5 MG TABLET PO (23:17)
[2025-08-29] VITALS (38 sets, daily range): BP systolic 96–138; BP diastolic 39–60; PULSE 56–76; RESP 12–21; TEMP 36.1–36.7; O2SAT 92–100; BMI 61.9
[2025-08-29 05:48] LABS: Basophils # (Auto) 0.0 Thou/mm3 (0.0-0.2); Basophils % (Auto) 0 % (0-2.5); Eosinophils # (Auto) 0.1 Thou/mm3 (0.0-0.5); Eosinophils % (Auto) 2 % (0-10); Hematocrit 29.1 % (36.0-46.0); Hemoglobin 9.2 g/dL (12.0-16.0); Immature Granulocytes Auto 0.03 Thou/mm3 (0.00-0.00); Lymphocytes # (Auto) 0.5 Thou/mm3 (1.0-4.8); Lymphocytes % (Auto) 16 % (10-50); Mean Corpuscular HGB Conc 31.6 g/dl (31.0-37.0); Mean Corpuscular Hemoglobin 31.3 pg (25.0-35.0); Mean Corpuscular Volume 99 fL (80-100); Monocytes # (Auto) 0.4 Thou/mm3 (0.0-0.8); Monocytes % (Auto) 13 % (0-12); Neutrophils # (Auto) 2.2 Thou/mm3 (1.8-7.7); Neutrophils % (Auto) 68 % (37-80); Nucleated Red Blood Cell # 0.00 Thou/mm3 (0.00-0.00); Nucleated Red Blood Cell % 0 /100 WBC (0); RDW Standard Deviation 55.9 fL (36.4-46.3); Red Blood Count 2.94 Miln/mm3 (4.00-5.20); White Blood Count 3.2 Thou/mm3 (3.6-11.0)
[2025-08-29 05:54] LABS: Platelet Count 23 Thou/mm3 (140-440)
[2025-08-29 06:19] LABS: Alanine Aminotransferase < 7 U/L (10-49); Albumin, Serum 2.7 gm/dL (3.5-5.0); Albumin/Globulin Ratio 0.7 (1.2-2.2); Alkaline Phosphatase 49 U/L (46-116); Anion Gap 11 (7-16); Aspartate Amino Transferase 34 U/L (0-34); BUN/Creatinine Ratio 5 Ratio (12-20); Bilirubin,Total 1.4 mg/dL (0.3-1.2); Blood Urea Nitrogen 34 mg/dL (9-23); Calcium 8.2 mg/dL (8.3-10.6); Calcium (Corrected) 9.2 mg/dL (8.5-10.1); Carbon Dioxide 29.0 mMol/L (20.0-31.0); Chloride 99 mMol/L (98-107); Creatinine (Component) 6.4 mg/dL (0.6-1.3); Estimated Creatinine Clearance 14.1 mL/min (>60); Globulin 3.8 gm/dL (2.3-3.5); Glucose 97 mg/dL (74-106); Magnesium 2.7 mg/dL (1.6-2.6); Osmolality,Calculated 285 (275-295); Phosphorous 6.9 mg/dL (2.4-5.1); Potassium 4.5 mMol/L (3.4-5.1); Sodium 139 mMol/L (136-145); Total Protein 6.5 gm/dL (5.7-8.2); eGFR 7 See Note
[2025-08-29 07:19] LABS: Slide Review Platelets confirmed
[2025-08-29] MEDS: GABAPENTIN 100 MG CAPSULE 400 MG PO ×2 (09:50→21:30)
[2025-08-29] MEDS: ALBUMIN HUMAN-KJDA 25% IVPB 25 GM/100 ML BTL IV (11:48)
--- NOTE | 2025-08-29 11:51 | PC.NURSE ---
BP RECHECKED, TRENDING UP BUT REMAINS LOW. UF GOAL LOWERED TO 2.5L TOLERATED, WILL CONT. TO MONITOR
--- NOTE | 2025-08-29 11:56 | PC.NURSE ---
BP RECHECK AND CONT'S. TO TREND DOWN. PT REMAINS ASYMPTOMATIC AND DENIES ALL S/S OF HYPOTENSION. UF GOAL LOERED TO 2L TOLERATED, WILL CONT. TO MONITOR
--- NOTE | 2025-08-29 13:23 | PC.NURSE ---
TX TIME DECREASED TO 2HRS AND 30 MIN PER ORDER OF MD GRULLON SO PT CAN MAKE IT IN TIME FOR SCHEDULED COLONOSCOPY, ORDER VERIFIED AND OKAYED BY MD WHITMORE. UF GOAL AT 3 L TOLERATED.
--- NOTE | 2025-08-29 13:47 | ESPR_ITS ---
<Statement entered by Willis Ta MD - 08/29/25 14:50> No acute overnight events. Seen and examined at bedside resting comfortably in bed. She was not clear last night and requires additional GoLytely in preparation for her colonoscopy. Nephrology also following and plans for dialysis today. Labs show stable leukopenia, improving hemoglobin from 8.5 to 9.2, and stable thrombocytopenia. Chem panel consistent with ESRD and will undergo dialysis today as previously mentioned. T bili noted to be increasing but likely from liver disease. Will follow-up colonoscopy results and GI recommendations thereafter if she is clear. ----- Note reviewed and agree with care plan as documented. Please refer to the note below for further details. Plan discussed with attending physician Dr. Enid Ta MD PGY-2 Internal Medicine Documentation for date of: 08/29/25 Subjective Subjective Interval history: No acute events overnight. Patient was seen and examined at bedside. Saturating well on room air. Patient already completed 3 courses of GoLytely. Per patient he had an episode of diarrhea last morning. She reports no acute complaint, no shortness of breath, no palpitation, no weakness, no chills and no pain. Nephrology also following and plans for dialysis today. Colonoscopy done today which showed internal hemorrhoids recommendation to repeat colonoscopy in 5 years for surveillance. Labs reviewed and significant for hemoglobin 9.2 (improved from yesterday 8.5). Hematocrit 29.1. Leukopenia with WBC 3.2., Thrombocytopenia with platelet 23, BUN 4, creatinine 6.4, GFR 7, T. bili 1.9 ( increase from 1.4, likely due to liver disease. Albumin 3.1. Exam Vital Signs Temp Pulse Resp BP Pulse Ox O2 Del Method O2 Flow Rate 98.0 F 59 L 18 111/50 L 98 Nasal Cannula 2 08/29/25 13:40 08/29/25 13:40 08/29/25 13:40 08/29/25 13:40 08/29/25 13:40 08/29/25 08:00 08/29/25 13:40 Narrative Exam General: No acute distress, well nourished, obese Eye: PERRL, EOMI, normal conjunctiva, no scleral icterus HENT: Normocephalic, atraumatic, normal hearing, moist oral mucosa. ample anterior soft tissue, large neck circumference Neck: Supple, non-tender, no JVD, no lymphadenopathy, tunneled hd cath in the R chest, some bruising noted on the chest near cath Lungs: Clear to auscultation, bilateral air entry, no wheezing or rales. Heart: Normal S1 and S2, no S3 or S4 appreciated. Normal rate and regular rhythm, no murmurs, rubs gallops. Abdomen: Soft, non-tender, non-distended, normal bowel sounds. No guarding or rebound tenderness. Musculoskeletal: Normal range of motion and strength, no tenderness or swelling Skin: Skin is warm, dry, no rashes or lesions. 3+ pitting edema of bilateral LE at the ankles and feet up to the mid shins Neurologic: Alert, awake and oriented x3. CN II-XII grossly intact. No focal neuro deficits. No signs of meningeal irritation noted. Psychiatric: Cooperative, appropriate mood and affect Objective Labs 08/29/25 05:02 08/29/25 13:13 Labs: Laboratory Results - last 24 hr 08/29/25 05:02 WBC 3.2 L RBC 2.94 L Hgb 9.2 L Hct 29.1 L MCV 99 MCH 31.3 MCHC 31.6 RDW Std Deviation 55.9 H Plt Count 23 L* Neut % (Auto) 68 Lymph % (Auto) 16 [place] % (Auto) 13 H Eos % (Auto) 2 Baso % (Auto) 0 Neut # (Auto) 2.2 Lymph # (Auto) 0.5 L [place] # (Auto) 0.4 Eos # (Auto) 0.1 Baso # (Auto) 0.0 Immature Gran # (Auto) 0.03 H Absolute Nucleated RBC 0.00 Immature Gran % 1 H Nucleated RBC % 0 Sodium 139 Potassium 4.5 Chloride 99 Carbon Dioxide 29.0 Anion Gap 11 BUN 34 H Creatinine 6.4 H* D Estim Creat Clear Calc 14.1 L eGFR 7 L* BUN/Creatinine Ratio 5 L Glucose 97 D Calculated Osmolality 285 Calcium 8.2 L Corrected Calcium 9.2 Phosphorus 6.9 H Magnesium 2.7 H Total Bilirubin 1.4 H AST 34 ALT < 7 L Alkaline Phosphatase 49 Total Protein 6.5 Albumin 2.7 L Globulin 3.8 H Albumin/Globulin Ratio 0.7 L Misc Test Result Platelets confirmed ABG Interpretation ABG results: 08/20/25 09:18 VBG pH 7.38 VBG pCO2 29 L VBG pO2 72 H VBG Base Excess -8 L Quality Measures Quality Measures VTE prophylaxis Assessment & Plan Assessment Current Active Medications: Generic Name Dose Route Start Last Admin Trade Name Freq PRN Reason Stop Dose Admin Hydrocodone Bitart/Acetaminophen 1 tab 08/26/25 10:15 08/29/25 09:50 Hydrocodone/Apap 10/325 Tab PO 08/31/25 10:14 1 tab BID SHERYL Administration Amlodipine Besylate 10 mg 08/23/25 09:00 08/29/25 09:21 Amlodipine Besylate 5 Mg Tablet PO 09/22/25 08:59 Not Given QDAY SHERYL Atorvastatin Calcium 10 mg 08/21/25 21:00 08/28/25 21:25 Atorvastatin Calcium 10 Mg Tablet PO 09/20/25 20:59 10 mg HS SHERYL Administration Dextrose 25 ml 08/20/25 10:14 Dextrose 50%-Water Inj 50 Ml Syringe IV 09/19/25 10:13 Q15MIN PRN BG 50-70 responsive npo pt Dextrose 50 ml 08/20/25 10:14 Dextrose 50%-Water Inj 50 Ml Syringe IV 09/19/25 10:13 Q15MIN PRN BG <50 OR BG <70 & pt unresponsive Gabapentin 400 mg 08/20/25 21:00 08/29/25 09:50 Gabapentin 100 Mg Capsule PO 09/19/25 20:59 400 mg BID SHERYL Administration Glucagon 1 mg 08/20/25 10:14 Glucagon Inj 1 Mg Vial IM Q15MIN PRN BG <70, and no IV access Heparin Sodium (Porcine) 3,300 unit 08/25/25 11:40 08/25/25 11:50 Heparin Sod Inj 1000 Unit/Ml Vial 10 Ml INDWELLCAT 09/05/25 12:43 3,300 unit PRN PRN Administration DIALYSIS Albumin Human 25 gm in 100 mls @ 100 mls/hr 08/27/25 07:42 08/29/25 11:48 Albuminex 25% Ivpb IV 100 mls/hr Q30MIN PRN Administration DIALYSIS Insulin Degludec 20 unit 08/25/25 21:00 08/28/25 21:28 Insulin Degludec 5 Unit/0.05 Ml (Per 5 Units) SC 09/24/25 20:59 20 unit HS SHERYL Administration Insulin Human Lispro 0 unit 08/28/25 00:01 08/29/25 11:58 Insulin Lispro (Admelog) 1 Unit/0.01 Ml Unit SC 09/27/25 00:00 Not Given Q6H SHERYL Protocol Lactulose 20 gm 08/20/25 22:00 08/29/25 05:16 Lactulose Syrup 20 Gm/30 Ml Udc PO 09/19/25 21:59 Not Given TID SHERYL Protocol Ondansetron HCl 4 mg 08/20/25 10:08 Ondansetron Inj 2 Mg/Ml Inj 2 Ml IVP 09/19/25 10:07 Q6H PRN NAUSEA OR VOMITING Protocol Pantoprazole Sodium 40 mg 08/25/25 21:00 08/29/25 09:50 Pantoprazole Inj 40 Mg Vial IVP 09/24/25 20:59 40 mg BID SHERYL Administration Propranolol HCl 10 mg 08/20/25 21:00 08/29/25 09:22 Propranolol 10 Mg Tablet PO 09/19/25 20:59 Not Given BID SHERYL Sevelamer Carbonate 800 mg 08/23/25 12:00 08/29/25 11:58 Sevelamer Carbonate 800 Mg Tablet PO 09/22/25 11:59 Not Given TIDWM SHERYL Plan Ms Hopper is a 55 year old woman with a hx significant for advanced CKD that has now progressed to ESRD, HFpEF 55-60 12/2024, HLD, HTN, who presented with malaise and shortness of breath, found to be significantly volume overloaded, with elevated BUN and Cr, Nephrology consulted, Dr Neil. started on dialysis, s/p tunneled cath placement. pt pending authorization for snf, pt recommended. #Acute posthemorrhagic anemia #GI bleed #Grade II internal hemorrhoids #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 Concern for upper GI bleed due to low hemoglobin and hematocrit and hx of esophageal varices..Patient received 6 blood transfusions with HD s/p 5U pRBC, 2U plt. FOBT + Last EGD 12/[address] Ny: gastritis, gastric varices, banding not attempted given low PLT, grade 1 esophageal varices that were too small to band. EGD 08/26: Esophagitis, gastritis w/ hemorrhage (characterized by congestion/edema). No bx taken s/p Ceftriaxone1 gm qd (08/26- 08/27) for SBP ppx, Octreotide 50 mcg/hr (08/26- 08/27) Colonoscopy 08/29: Show internal hemorrhoids grade 1 Plan: - GI consulted, appreciate recs-repeat colonoscopy in 5 years for surveillance - Daily CBCs - Transfuse hemoglobin less than 7 - Continue Protonix 40mg IVP BID #Hx of Advanced CKD, now with ESRD #Chronic Normocytic Anemia #Hyperkalemia - resolved #Hyperphosphatemia #Hypermagnesemia Worsening BUN, Cr, low bicarb, electrolyte abnormalities Completed 3 days of consecutive HD (tolerating well), has tunneled dialysis catheter. 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 Plan: - Lactulose 20 TID - CTM chest for increased bruising or signs of hematoma at tunneled hd site. #HFpEF (echo 12/2024 w EF 55-60%) #Type II NSTEMI #Acute CHF exacerbation - resolved Weight on admission 129.27 kg Likely 2/2 ESRD (see above) BNP 200s Trend troponin, till peaked : 0.106-->0.124 --> 0.097- stop trending s/p Lasix (held given low urine output, getting dialysis) Plan: - Cardiology consulted, appreciate recs - Strict I and O - Daily Weights #Type 2 DM, insulin dependent A1c 6.5 Home regimen 35 U long acting BID , 20 U short acting tid with meals, Ozempic SC qweekly Uses freestyle merna Plan: - ISS Step 2 - Degludec 20 #Diabetic Neuropathy Ambulates with a 4 wheel walker Plan: - Gabapentin 400 mg PO BID - PT consulted, recommend snf #HTN Plan: - Amlodipine 10 mg PO daily #HLD Plan: - Atorvastatin 10 mg PO DHS #Gout Plan: - hold home Ursodiole mg PO TID i/s/o ESRD (see above) #PHUONG Large neck circumference. patient desats to 70s on NC when sleeping, needs to use cpap at night. Daignosed with PHUONG, never recieved CPAP machine at home Plan: - Discharge with CPAP - CPAP qhs while inpatient #Chronic low back pain Plan: - [place] 10 mg q6h PRN #Orthostatic tremors Prior ED presntation with tremors, had been evaluated by Dr. Juan. LP 11/2024, recommended outpatient follow up as needed. 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 Plan - wound care consulted, appreciate recs Hospital management: Lines: peripheral IV Diet: renal Bowel: Lactulose 20 TID GI prophylaxis: Pantoprazole 40 mg IV twice daily DVT prophylaxis: SCD given low platlets CODE STATUS: Full code Patient seen and assessed under supervision of attending physician Dr. Rossi and discuss with senior resident Dr. Ed Ta PGY-2 Elyssa Cruz MD PGY-1, Internal Medicine Please note: this document was transcribed using voice recognition technology; minor inaccuracies may be present. Attending Provider Attestation/Addendum I have seen and examined the patient. I was physically present for the blank portions of the services provided including history, physical exam, diagnosis, treatment plans and orders. I agree with assessment and plan of care as documented by residents. Patient seen and examined at bedside this afternoon. No acute overnight events. Vital signs are stable, lab results show stable hemoglobin, platelet continues to be low. Had elevation in bilirubin, rest of the chemistry panel are also stable. Underwent colonoscopy today with gastroenterology, was found to have internal hemorrhoids grade 2, no active bleeding. Pending placement awaiting insurance authorization. Even though this this note was carefully revised there may still be minor errors in copy supervisor due to voice recognition software. Trinidad Rossi MD
[2025-08-29] MEDS: SODIUM CHLORIDE 0.9% 500 ML 500 ML 125 ML IV (14:20)
[2025-08-29 14:45] LABS: Alanine Aminotransferase < 7 U/L (10-49); Albumin, Serum 3.1 gm/dL (3.5-5.0); Albumin/Globulin Ratio 0.8 (1.2-2.2); Alkaline Phosphatase 53 U/L (46-116); Anion Gap 11 (7-16); Aspartate Amino Transferase 35 U/L (0-34); BUN/Creatinine Ratio 6 Ratio (12-20); Bilirubin,Total 1.9 mg/dL (0.3-1.2); Blood Urea Nitrogen 23 mg/dL (9-23); Calcium 8.4 mg/dL (8.3-10.6); Calcium (Corrected) 9.1 mg/dL (8.5-10.1); Carbon Dioxide 29.8 mMol/L (20.0-31.0); Chloride 98 mMol/L (98-107); Creatinine (Component) 4.0 mg/dL (0.6-1.3); Estimated Creatinine Clearance 22.5 mL/min (>60); Globulin 3.9 gm/dL (2.3-3.5); Glucose 76 mg/dL (74-106); Osmolality,Calculated 280 (275-295); Potassium 3.6 mMol/L (3.4-5.1); Sodium 139 mMol/L (136-145); Total Protein 7.0 gm/dL (5.7-8.2); eGFR 13 See Note
--- NOTE | 2025-08-29 14:58 | SUR.PHASEI ---
1458: Pt. AAOx4, vitals stable, breathing unlabored, no complaint of pain or nausea, no dressing in place, report received from Peter BONNER.
[2025-08-29] MEDS: HEPARIN SOD INJ 1000 UNIT/ML VIAL 10 ML 3300 UNIT INDWELLCAT (15:22)
--- NOTE | 2025-08-29 15:45 | SUR.PHASEI ---
1545: Pt. AAOx4, vitals stable, breathing unlabored, no complaint of pain or nausea, no dressing in place, no active bleed noted, pt. able to pass flatus, pt. tolerated bites of jello well, gave report to Alice BONNER prior to transfer to room 357.
[2025-08-29] MEDS: FUROSEMIDE INJ 10 MG/ML 4ML VIAL 40 MG IVP (18:17)
[2025-08-29] MEDS: SEVELAMER CARBONATE 800 MG TABLET PO (18:18)
[2025-08-29] MEDS: ATORVASTATIN CALCIUM 10 MG TABLET PO (21:30)
--- NOTE | 2025-08-29 21:30 | PC.NURSE ---
notified Dr. Burgos regarding patient's blood glucose of 398, patient has long acting insulin due at 2100 but patient's short acting insulin is still Q6hrs, patient is back on a diet, was NPO for procedure, per doctor will switch back insulin ACHS.
[2025-08-29] MEDS: INSULIN DEGLUDEC 5 UNIT/0.05 ML (PER 5 UNITS) 20 UNIT SC (21:32)
[2025-08-29] MEDS: INSULIN LISPRO (AdmeLOG) 1 UNIT/0.01 ML UNIT SC (21:32)
--- NOTE | 2025-08-29 22:16 | PC.NURSE ---
called Dr. Suresh regarding patient requesting if she can have ambien PO to help her sleep, patient states she had one last night, upon checking chart patient got a one time dose 5 mg, per doctor will check patient's chart.
[2025-08-30] VITALS (30 sets, daily range): BP systolic 93–166; BP diastolic 43–63; PULSE 64–77; RESP 16–18; TEMP 36.5–36.9; O2SAT 98–99; BMI 61.9; BMI 13.0
[2025-08-30] MEDS: ZOLPIDEM 5 MG TABLET PO (00:02)
--- NOTE | 2025-08-30 05:35 | PC.NURSE ---
called Dr. Suresh regarding patient's BP of 99/53, HR in the 60s. Patient has IV lasix for 0600, per doctor to hold dose for now. Patient requesting benadryl, c/o itchiness, per doctor to hold off on benadryl due to patient's BP on the lower side and make her more drowsy, informed patient, states understaning.
[2025-08-30 06:07] LABS: Basophils # (Auto) 0.0 Thou/mm3 (0.0-0.2); Basophils % (Auto) 0 % (0-2.5); Eosinophils # (Auto) 0.1 Thou/mm3 (0.0-0.5); Eosinophils % (Auto) 2 % (0-10); Hematocrit 25.9 % (36.0-46.0); Immature Granulocytes Auto 0.02 Thou/mm3 (0.00-0.00); Lymphocytes # (Auto) 0.4 Thou/mm3 (1.0-4.8); Lymphocytes % (Auto) 12 % (10-50); Mean Corpuscular HGB Conc 32.8 g/dl (31.0-37.0); Mean Corpuscular Hemoglobin 32.1 pg (25.0-35.0); Mean Corpuscular Volume 98 fL (80-100); Monocytes # (Auto) 0.5 Thou/mm3 (0.0-0.8); Monocytes % (Auto) 18 % (0-12); Neutrophils # (Auto) 2.0 Thou/mm3 (1.8-7.7); Neutrophils % (Auto) 67 % (37-80); Nucleated Red Blood Cell # 0.00 Thou/mm3 (0.00-0.00); Nucleated Red Blood Cell % 0 /100 WBC (0); RDW Standard Deviation 54.8 fL (36.4-46.3); Red Blood Count 2.65 Miln/mm3 (4.00-5.20); White Blood Count 3.0 Thou/mm3 (3.6-11.0)
[2025-08-30 06:21] LABS: Alanine Aminotransferase < 7 U/L (10-49); Albumin, Serum 2.7 gm/dL (3.5-5.0); Alkaline Phosphatase 48 U/L (46-116); Anion Gap 9 (7-16); Aspartate Amino Transferase 35 U/L (0-34); BUN/Creatinine Ratio 4 Ratio (12-20); Bilirubin,Total 1.2 mg/dL (0.3-1.2); Blood Urea Nitrogen 23 mg/dL (9-23); Calcium 8.3 mg/dL (8.3-10.6); Calcium (Corrected) 9.3 mg/dL (8.5-10.1); Carbon Dioxide 25.8 mMol/L (20.0-31.0); Chloride 100 mMol/L (98-107); Creatinine (Component) 5.8 mg/dL (0.6-1.3); Estimated Creatinine Clearance 15.5 mL/min (>60); Glucose 225 mg/dL (74-106); Magnesium 2.1 mg/dL (1.6-2.6); Osmolality,Calculated 280 (275-295); Phosphorous 5.6 mg/dL (2.4-5.1); Potassium 4.1 mMol/L (3.4-5.1); Sodium 135 mMol/L (136-145); eGFR 8 See Note
[2025-08-30 07:01] LABS: Hemoglobin 8.5 g/dL (12.0-16.0)
[2025-08-30 07:02] LABS: Platelet Count 19 Thou/mm3 (140-440)
[2025-08-30] MEDS: SEVELAMER CARBONATE 800 MG TABLET PO ×3 (07:19→17:42)
[2025-08-30] MEDS: INSULIN LISPRO (AdmeLOG) 1 UNIT/0.01 ML UNIT SC ×3 (07:20→20:33)
[2025-08-30 09:27] LABS: Slide Review Platelets confirmed
[2025-08-30] MEDS: ALBUMIN HUMAN-KJDA 25% IVPB 25 GM/100 ML BTL IV (10:03)
--- NOTE | 2025-08-30 10:09 | PC.NURSE ---
BP RENDING DOWN, PT DENIES ALL S/S OF HYPOTENSION. WILL ADMIN PRN ALBUMIN AND CONT. TO MONITOR
--- NOTE | 2025-08-30 13:21 | ESPR_ITS ---
<Statement entered by Willis Ta MD - 08/30/25 16:52> No acute overnight events. Seen and examined at bedside and resting comfortably in bed. She was on NC as she likely has PHUONG but denies any shortness of breath. She underwent an additional round of dialysis and tolerated well. She was able to undergo her colonoscopy that revealed internal hemorrhoids and recommendation for repeat colonoscopy in 5 years for surveillance. Touched base with nephrology and confirmed that patient does indeed have a tunneled dialysis catheter despite documentation. Platelet count continues to downtrend and will order repeat in the evening and if less than 10 will require transfusion. Otherwise, will consult hematology for further evaluation of her pancytopenia and await recommendations. ----- Note reviewed and agree with care plan as documented. Please refer to the note below for further details. Plan discussed with attending physician Dr. Mackenzie Ta MD PGY-2 Internal Medicine Documentation for date of: 08/30/25 Subjective Subjective Interval history: No acute events overnight. Patient was seen and examined at bedside today vitals within normal limit saturating well on room air. Patient endorses endorse itchiness for which she received Benadryl 25 mg x 1. Labs were reviewed and were significant for WBC of 3.0, hemoglobin 8.5, hematocrit 25.9, patient is not actively bleeding no emesis, no melena, hematochezia. Thrombocytopenia with platelet count of 19. Consulted hematology Dr. Ortiz,pending evaluation. Patient was dialyzed today with a fluid output of 2200cc Exam Vital Signs Temp Pulse Resp BP Pulse Ox O2 Del Method O2 Flow Rate 98.2 F 69 18 102/51 L 99 Nasal Cannula 2 08/30/25 10:53 08/30/25 10:53 08/30/25 10:53 08/30/25 10:53 08/30/25 10:53 08/30/25 04:00 08/30/25 10:53 Narrative Exam General: No acute distress, well nourished, obese Eye: PERRL, EOMI, normal conjunctiva, no scleral icterus HENT: Normocephalic, atraumatic, normal hearing, moist oral mucosa. Ample anterior soft tissue, large neck circumference Neck: Supple, non-tender, no JVD, no lymphadenopathy, tunneled hd cath in the R chest, some bruising noted on the chest near cath Lungs: Clear to auscultation, bilateral air entry, no wheezing or rales. Heart: Normal S1 and S2, no S3 or S4 appreciated. Normal rate and regular rhythm, no murmurs, rubs gallops. Abdomen: Soft, non-tender, non-distended, normal bowel sounds. No guarding or rebound tenderness. Musculoskeletal: Normal range of motion and strength, no tenderness or swelling Skin: Skin is warm, dry, no rashes or lesions. 3+ pitting edema of bilateral LE at the ankles and feet up to the mid shins, +2 periorbital edema Neurologic: Alert, awake and oriented x3. CN II-XII grossly intact. No focal neuro deficits. No signs of meningeal irritation noted. Psychiatric: Cooperative, appropriate mood and affect Objective Labs 08/31/25 04:41 08/31/25 04:41 Labs: Laboratory Results - last 24 hr 08/29/25 08/30/25 13:13 05:25 WBC 3.0 L RBC 2.65 L Hgb 8.5 L Hct 25.9 L MCV 98 MCH 32.1 MCHC 32.8 RDW Std Deviation 54.8 H Plt Count 19 L* Neut % (Auto) 67 Lymph % (Auto) 12 [place] % (Auto) 18 H Eos % (Auto) 2 Baso % (Auto) 0 Neut # (Auto) 2.0 Lymph # (Auto) 0.4 L [place] # (Auto) 0.5 Eos # (Auto) 0.1 Baso # (Auto) 0.0 Immature Gran # (Auto) 0.02 H Absolute Nucleated RBC 0.00 Immature Gran % 1 H Nucleated RBC % 0 Sodium 139 135 L Potassium 3.6 D 4.1 D Chloride 98 100 Carbon Dioxide 29.8 25.8 Anion Gap 11 9 BUN 23 23 Creatinine 4.0 H D 5.8 H* D Estim Creat Clear Calc 22.5 L 15.5 L eGFR 13 L* 8 L* BUN/Creatinine Ratio 6 L 4 L Glucose 76 225 H D Calculated Osmolality 280 280 Calcium 8.4 8.3 Corrected Calcium 9.1 9.3 Phosphorus 5.6 H Magnesium 2.1 Total Bilirubin 1.9 H D 1.2 D AST 35 H 35 H ALT < 7 L < 7 L Alkaline Phosphatase 53 48 Total Protein 7.0 Albumin 3.1 L 2.7 L Globulin 3.9 H Albumin/Globulin Ratio 0.8 L Misc Test Result Platelets confirmed ABG Interpretation ABG results: 08/20/25 09:18 VBG pH 7.38 VBG pCO2 29 L VBG pO2 72 H VBG Base Excess -8 L Quality Measures Quality Measures VTE prophylaxis Assessment & Plan Assessment Current Active Medications: Generic Name Dose Route Start Last Admin Trade Name Freq PRN Reason Stop Dose Admin Hydrocodone Bitart/Acetaminophen 1 tab 08/26/25 10:15 08/30/25 11:52 Hydrocodone/Apap 10/325 Tab PO 08/31/25 10:14 1 tab BID SHERYL Administration Amlodipine Besylate 10 mg 08/23/25 09:00 08/30/25 11:44 Amlodipine Besylate 5 Mg Tablet PO 09/22/25 08:59 Not Given QDAY SHERYL Atorvastatin Calcium 10 mg 08/21/25 21:00 08/29/25 21:30 Atorvastatin Calcium 10 Mg Tablet PO 09/20/25 20:59 10 mg HS SHERYL Administration Dextrose 25 ml 08/20/25 10:14 Dextrose 50%-Water Inj 50 Ml Syringe IV 09/19/25 10:13 Q15MIN PRN BG 50-70 responsive npo pt Dextrose 50 ml 08/20/25 10:14 Dextrose 50%-Water Inj 50 Ml Syringe IV 09/19/25 10:13 Q15MIN PRN BG <50 OR BG <70 & pt unresponsive Furosemide 40 mg 08/29/25 18:00 08/30/25 05:37 Furosemide Inj 10 Mg/Ml 4ml Vial IVP 09/28/25 17:59 Not Given BIDD SHERYL Gabapentin 300 mg 08/31/25 09:00 Gabapentin 300 Mg Capsule PO 09/30/25 08:59 QDAY SHERYL Glucagon 1 mg 08/20/25 10:14 Glucagon Inj 1 Mg Vial IM Q15MIN PRN BG <70, and no IV access Heparin Sodium (Porcine) 3,300 unit 08/25/25 11:40 08/29/25 15:22 Heparin Sod Inj 1000 Unit/Ml Vial 10 Ml INDWELLCAT 09/05/25 12:43 3,300 unit PRN PRN Administration DIALYSIS Albumin Human 25 gm in 100 mls @ 100 mls/hr 08/27/25 07:42 08/30/25 10:03 Albuminex 25% Ivpb IV 100 mls/hr Q30MIN PRN Administration DIALYSIS Insulin Degludec 20 unit 08/25/25 21:00 08/29/25 21:32 Insulin Degludec 5 Unit/0.05 Ml (Per 5 Units) SC 09/24/25 20:59 20 unit HS SHERYL Administration Insulin Human Lispro 0 unit 08/29/25 21:15 08/30/25 11:45 Insulin Lispro (Admelog) 1 Unit/0.01 Ml Unit SC 09/28/25 21:14 Not Given ACHS SHERYL Protocol Lactulose 20 gm 08/20/25 22:00 08/30/25 05:42 Lactulose Syrup 20 Gm/30 Ml Udc PO 09/19/25 21:59 Not Given TID SHERYL Protocol Ondansetron HCl 4 mg 08/20/25 10:08 Ondansetron Inj 2 Mg/Ml Inj 2 Ml IVP 09/19/25 10:07 Q6H PRN NAUSEA OR VOMITING Protocol Pantoprazole Sodium 40 mg 08/25/25 21:00 08/30/25 11:52 Pantoprazole Inj 40 Mg Vial IVP 09/24/25 20:59 40 mg BID SHERYL Administration Propranolol HCl 10 mg 08/20/25 21:00 08/30/25 11:44 Propranolol 10 Mg Tablet PO 09/19/25 20:59 Not Given BID SHERYL Sevelamer Carbonate 800 mg 08/23/25 12:00 08/30/25 11:52 Sevelamer Carbonate 800 Mg Tablet PO 09/22/25 11:59 800 mg TIDWM SHERYL Administration Plan Ms Hopper is a 55 year old woman with a hx significant for advanced CKD that has now progressed to ESRD, HFpEF 55-60 12/2024, HLD, HTN, who presented with malaise and shortness of breath, found to be significantly volume overloaded, with elevated BUN and Cr, Nephrology consulted, Dr Neil. started on dialysis, s/p tunneled cath placement. pt pending authorization for snf, pt recommended. #Anemia #Leukopenia #Thrombocytopenia #Pancytopenia Patient has signs of end-stage liver disease as all cell lines are low, abnormal coag panel, low albumin, elevated T. bili. Etiology of pancytopenia may be related to ESLD in addition to ESRD. However, may be underlying hematological disorder and will consult hematology. - Hematology consulted, appreciate recommendations #Acute posthemorrhagic anemia #GI bleed #Grade II internal hemorrhoids #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 Concern for upper GI bleed due to low hemoglobin and hematocrit and hx of esophageal varices..Patient received 6 blood transfusions with HD s/p 5U pRBC, 2U plt. FOBT + Last EGD 12/[address] Ny: gastritis, gastric varices, banding not attempted given low PLT, grade 1 esophageal varices that were too small to band. EGD 08/26: Esophagitis, gastritis w/ hemorrhage (characterized by congestion/edema). No bx taken s/p Ceftriaxone1 gm qd (08/26- 08/27) for SBP ppx, Octreotide 50 mcg/hr (08/26- 08/27) Colonoscopy 08/29: Show internal hemorrhoids grade 1 Plan: - GI consulted, appreciate recs-repeat colonoscopy in 5 years for surveillance - Daily CBCs - Transfuse hemoglobin less than 7 - Continue Protonix 40mg IVP BID #Hx of Advanced CKD, now with ESRD #Chronic Normocytic Anemia #Severe persistent thrombocytopenia #Severe leukopenia #Hyperkalemia - resolved #Hyperphosphatemia #Hypermagnesemia Worsening BUN, Cr, low bicarb, electrolyte abnormalities Completed 3 days of consecutive HD (tolerating well), has tunneled dialysis catheter. 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 Plan: - Lactulose 20 TID - CTM chest for increased bruising or signs of hematoma at tunneled hd site. #HFpEF (echo 12/2024 w EF 55-60%) #Type II NSTEMI #Acute CHF exacerbation - resolved Weight on admission 129.27 kg Likely 2/2 ESRD (see above) BNP 200s Trend troponin, till peaked : 0.106-->0.124 --> 0.097- stop trending s/p Lasix (held given low urine output, getting dialysis) Plan: - Cardiology consulted, appreciate recs - Strict I and O - Daily Weights #Type 2 DM, insulin dependent A1c 6.5 Home regimen 35 U long acting BID , 20 U short acting tid with meals, Ozempic SC qweekly Uses freestyle merna Plan: - ISS Step 2 - Degludec 20 #Diabetic Neuropathy Ambulates with a 4 wheel walker Plan: - Gabapentin 400 mg PO BID - PT consulted, recommend snf #HTN Plan: - Amlodipine 10 mg PO daily #HLD Plan: - Atorvastatin 10 mg PO DHS #Gout Plan: - hold home Ursodiole mg PO TID i/s/o ESRD (see above) #PHUONG Large neck circumference. patient desats to 70s on NC when sleeping, needs to use cpap at night. Daignosed with PHUONG, never recieved CPAP machine at home Plan: - Discharge with CPAP - CPAP qhs while inpatient #Chronic low back pain Plan: - [facility] 10 mg q6h PRN #Orthostatic tremors Prior ED presntation with tremors, had been evaluated by Dr. Juan. LP 11/2024, recommended outpatient follow up as needed. 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 Plan - wound care consulted, appreciate recs Hospital management: Lines: peripheral IV Diet: renal Bowel: Lactulose 20 TID GI prophylaxis: Pantoprazole 40 mg IV twice daily DVT prophylaxis: SCD given low platelets CODE STATUS: Full code Patient seen and assessed under supervision of attending physician Dr. Rossi and discuss with senior resident Dr. Ed Ta PGY-2 Elyssa Cruz MD PGY-1, Internal Medicine Please note: this document was transcribed using voice recognition technology; minor inaccuracies may be present. Attending Provider Attestation/Addendum I, Maria Fernanda Mann DO, attest that I was physically present for the blank portions of the service and evaluated the patient with the resident and I reviewed and discussed the case with the resident and agree with the resident's findings and plans of care as documented above Patient seen and evaluated this AM. She states she is doing well. Patient underwent dialysis this AM. She remains on 2L/NC. Patient continues to have 3+ pitting edema in b/l LE. Per catheter placement report, a nontunneled catheter was placed. However, per nephrology, they state that the HD catheter is tunneled. Catheter site is ecchymotic due to thrombocytopenia 2/2 to liver disease. Heme/onc consulted due to thrombocytopenia. Will continue with dialysis treatments due to anasarca and diuresis. Patient denies any chest pain, abdominal pain, fevers, chills, nausea, vomiting or shortness of breath.
[2025-08-30 13:27] LABS: Albumin/Globulin Ratio 0.7 (1.2-2.2); Globulin 3.8 gm/dL (2.3-3.5); Total Protein 6.5 gm/dL (5.7-8.2)
--- NOTE | 2025-08-30 13:41 | PC.SS ---
Addendum entered by Justyna Granados 08/30/25 14:48: SS received update that we have auth. Clarification: Patient does have a perm cath per physician team. D/c held due to biopsy results positive for cancer. Original Note: SS followed up with authorization. Stephanie @ [facility] states they are in communication with insurance co. it is in review. Possible late discharge today. Facility will need a date of when patient is getting perm vas cath prior to taking her.
[2025-08-30] MEDS: FUROSEMIDE INJ 10 MG/ML 4ML VIAL 40 MG IVP (17:42)
[2025-08-30] MEDS: ATORVASTATIN CALCIUM 10 MG TABLET PO (20:26)
[2025-08-30] MEDS: INSULIN DEGLUDEC 5 UNIT/0.05 ML (PER 5 UNITS) 20 UNIT SC (20:33)
[2025-08-30] MEDS: PROPRANOLOL 10 MG TABLET PO (20:34)
--- NOTE | 2025-08-30 21:17 | ESPR_ITS ---
Documentation for date of: 08/30/25 Subjective Subjective Interval history: Patient evaluated at hemoglobin hematocrit 8.5 and 25.9 Exam Vital Signs Temp Pulse Resp BP Pulse Ox O2 Del Method O2 Flow Rate 97.7 F 76 17 99/63 98 Nasal Cannula 2 08/30/25 20:00 08/30/25 20:34 08/30/25 20:07 08/30/25 20:34 08/30/25 20:07 08/30/25 20:00 08/30/25 20:07 Objective Labs 08/30/25 05:25 08/30/25 05:25 Labs: Laboratory Results - last 24 hr 08/30/25 05:25 WBC 3.0 L RBC 2.65 L Hgb 8.5 L Hct 25.9 L MCV 98 MCH 32.1 MCHC 32.8 RDW Std Deviation 54.8 H Plt Count 19 L* Neut % (Auto) 67 Lymph % (Auto) 12 [place] % (Auto) 18 H Eos % (Auto) 2 Baso % (Auto) 0 Neut # (Auto) 2.0 Lymph # (Auto) 0.4 L [place] # (Auto) 0.5 Eos # (Auto) 0.1 Baso # (Auto) 0.0 Immature Gran # (Auto) 0.02 H Absolute Nucleated RBC 0.00 Immature Gran % 1 H Nucleated RBC % 0 Sodium 135 L Potassium 4.1 D Chloride 100 Carbon Dioxide 25.8 Anion Gap 9 BUN 23 Creatinine 5.8 H* D Estim Creat Clear Calc 15.5 L eGFR 8 L* BUN/Creatinine Ratio 4 L Glucose 225 H D Calculated Osmolality 280 Calcium 8.3 Corrected Calcium 9.3 Phosphorus 5.6 H Magnesium 2.1 Total Bilirubin 1.2 D AST 35 H ALT < 7 L Alkaline Phosphatase 48 Total Protein 6.5 Albumin 2.7 L Globulin 3.8 H Albumin/Globulin Ratio 0.7 L Misc Test Result Platelets confirmed Impressions Impression: Anemia blood loss Internal hemorrhoids Gastritis Recommend outpatient capsule endoscopy to be referred by the PCP to a tertiary center ABG Interpretation ABG results: 08/20/25 09:18 VBG pH 7.38 VBG pCO2 29 L VBG pO2 72 H VBG Base Excess -8 L Assessment & Plan A&P Narrative # Hemoccult positive stool with drop in hemoglobin hematocrit requiring blood transfusion on a weekly basis Plan N.p.o. midnight tonight except p.o. meds Consent obtained in the dialysis room for fiberoptic esophagogastroduodenoscopy with possible biopsy possible therapeutic intervention under intravenous moderate sedation scheduled for tomorrow morning Depending on the results of the upper endoscopy patient may need a colonoscopy prior to discharge and as there is no record of colonoscopy on board although she claims she had a colonoscopy in the last 2 [address] Brow[place] in [place] Other medical problems include # End-stage renal disease on hemodialysis # End-stage liver disease due to ROSE cirrhosis with leukopenia and thrombocytopenia Thank you very much for the opportunity to participate in the care of this patient Time Spent With Patient Time: Total time spent is greater than 50% in coordination of care (as documented) at patient's floor/unit and/or counseling patient:
[2025-08-30 21:59] LABS: Basophils # (Auto) 0.0 Thou/mm3 (0.0-0.2); Basophils % (Auto) 1 % (0-2.5); Eosinophils # (Auto) 0.1 Thou/mm3 (0.0-0.5); Eosinophils % (Auto) 3 % (0-10); Hematocrit 24.3 % (36.0-46.0); Immature Granulocytes Auto 0.01 Thou/mm3 (0.00-0.00); Lymphocytes # (Auto) 0.3 Thou/mm3 (1.0-4.8); Lymphocytes % (Auto) 14 % (10-50); Mean Corpuscular HGB Conc 32.1 g/dl (31.0-37.0); Mean Corpuscular Hemoglobin 31.2 pg (25.0-35.0); Mean Corpuscular Volume 97 fL (80-100); Monocytes # (Auto) 0.3 Thou/mm3 (0.0-0.8); Monocytes % (Auto) 16 % (0-12); Neutrophils # (Auto) 1.2 Thou/mm3 (1.8-7.7); Neutrophils % (Auto) 66 % (37-80); Nucleated Red Blood Cell # 0.00 Thou/mm3 (0.00-0.00); Nucleated Red Blood Cell % 0 /100 WBC (0); RDW Standard Deviation 55.5 fL (36.4-46.3); Red Blood Count 2.50 Miln/mm3 (4.00-5.20); White Blood Count 1.8 Thou/mm3 (3.6-11.0)
[2025-08-30 22:02] LABS: Hemoglobin 7.8 g/dL (12.0-16.0)
[2025-08-30 22:05] LABS: Platelet Count 17 Thou/mm3 (140-440)
[2025-08-30 22:14] LABS: Slide Review Platelets confirmed
[2025-08-31] VITALS (29 sets, daily range): BP systolic 103–169; BP diastolic 50–68; PULSE 68–87; RESP 13–21; TEMP 36.2–37.1; O2SAT 97–100; BMI 60.5; BMI 13.0
[2025-08-31] MEDS: FUROSEMIDE INJ 10 MG/ML 4ML VIAL 40 MG IVP (05:50)
[2025-08-31 06:19] LABS: Basophils # (Auto) 0.0 Thou/mm3 (0.0-0.2); Basophils % (Auto) 1 % (0-2.5); Eosinophils # (Auto) 0.1 Thou/mm3 (0.0-0.5); Eosinophils % (Auto) 2 % (0-10); Hematocrit 24.5 % (36.0-46.0); Immature Granulocytes Auto 0.01 Thou/mm3 (0.00-0.00); Lymphocytes # (Auto) 0.3 Thou/mm3 (1.0-4.8); Lymphocytes % (Auto) 13 % (10-50); Mean Corpuscular HGB Conc 32.2 g/dl (31.0-37.0); Mean Corpuscular Hemoglobin 31.3 pg (25.0-35.0); Mean Corpuscular Volume 97 fL (80-100); Monocytes # (Auto) 0.4 Thou/mm3 (0.0-0.8); Monocytes % (Auto) 19 % (0-12); Neutrophils # (Auto) 1.4 Thou/mm3 (1.8-7.7); Neutrophils % (Auto) 65 % (37-80); Nucleated Red Blood Cell # 0.00 Thou/mm3 (0.00-0.00); Nucleated Red Blood Cell % 0 /100 WBC (0); RDW Standard Deviation 56.8 fL (36.4-46.3); Red Blood Count 2.52 Miln/mm3 (4.00-5.20); White Blood Count 2.1 Thou/mm3 (3.6-11.0)
[2025-08-31 06:25] LABS: Hemoglobin 7.9 g/dL (12.0-16.0); Platelet Count 17 Thou/mm3 (140-440)
[2025-08-31 06:39] LABS: Alanine Aminotransferase < 7 U/L (10-49); Albumin, Serum 2.9 gm/dL (3.5-5.0); Albumin/Globulin Ratio 0.8 (1.2-2.2); Alkaline Phosphatase 42 U/L (46-116); Anion Gap 11 (7-16); Aspartate Amino Transferase 32 U/L (0-34); BUN/Creatinine Ratio 4 Ratio (12-20); Bilirubin,Total 1.4 mg/dL (0.3-1.2); Blood Urea Nitrogen 22 mg/dL (9-23); Calcium 8.2 mg/dL (8.3-10.6); Calcium (Corrected) 9.1 mg/dL (8.5-10.1); Carbon Dioxide 27.8 mMol/L (20.0-31.0); Chloride 99 mMol/L (98-107); Creatinine (Component) 5.5 mg/dL (0.6-1.3); Estimated Creatinine Clearance 16.4 mL/min (>60); Globulin 3.8 gm/dL (2.3-3.5); Glucose 140 mg/dL (74-106); Magnesium 1.8 mg/dL (1.6-2.6); Osmolality,Calculated 280 (275-295); Phosphorous 4.3 mg/dL (2.4-5.1); Potassium 4.2 mMol/L (3.4-5.1); Sodium 138 mMol/L (136-145); Total Protein 6.7 gm/dL (5.7-8.2); eGFR 9 See Note
[2025-08-31] MEDS: SEVELAMER CARBONATE 800 MG TABLET PO ×3 (08:12→18:01)
[2025-08-31] MEDS: GABAPENTIN 300 MG CAPSULE PO (08:13)
[2025-08-31] MEDS: PROPRANOLOL 10 MG TABLET PO ×2 (08:14→20:39)
[2025-08-31 09:57] LABS: Slide Review Platelets confirmed
--- NOTE | 2025-08-31 10:41 | ESPR_ITS ---
<Statement entered by Willis Ta MD - 08/31/25 14:35> No acute overnight events. Seen and examined at bedside and patient resting comfortably in bed. States that her itchiness has improved with Benadryl. She has no complaints at this time and will touch base with hematology for consult for pancytopenia. In afternoon, patient noted to have a large bright red bloody bowel movement for which a stat H&H was obtained. GI made aware and will update once H&H results. Will follow up on recommendations afterwards. Otherwise, outpatient dialysis and SNF set up once patient is stable for discharge. ----- Note reviewed and agree with care plan as documented. Please refer to the note below for further details. Plan discussed with attending physician Dr. Mackenzie Ta MD PGY-2 Internal Medicine Documentation for date of: 08/31/25 Subjective Subjective Interval history: No acute events overnight. Patient receive Benadryl x1 for itching. Today, pt was seen and eaxminded at bedside. No complaints, except for itchiness around the back area. She noted alleviation with Benadryl, hence started the schedule benadryl 25mg prn q6h. Labs are reviewed and no significant change from yesterday. Platelet count maintained at 17, replete with 1 unit pheresis and 15 unit cryoprecipitate. Creatinine slightly improved from 5.8-5.5. Patient reports an urge to urinate but has had minimal urine output since admission, with the last Douglass catheter reading showing 250 mL. On examination, urine was noted to be dark red for the first time. A bladder scan and urinalysis have been ordered to monitor for hematuria. Bladder scan result was negligible, stop furosemide since pt is not anuric. Additionally, the patient had a 2 bowel movement today with bright red blood per rectum and clots, prompting an order for a STAT hemoglobin/hematocrit (H/H) check. Hg 7.6 and Hct 24.2m slight decreased from morning labs. Spoke to , recommend repeat CBC at 7pm and will follow-up with the patient. States the bleeding might be due to internal hemorrhoid anorectal bleed. If the patient continues to have anorectal bleed, she might need banding. Consulted assembler radio and electrical Dr. Ortiz, about thrombocytopenia and leukopenia, will see the patient. Exam Vital Signs Temp Pulse Resp BP Pulse Ox O2 Del Method O2 Flow Rate 97.7 F 71 16 114/56 L 97 Room Air 2 08/31/25 07:54 08/31/25 08:14 08/31/25 07:54 08/31/25 08:14 08/31/25 07:54 08/31/25 07:54 08/31/25 07:26 Narrative Exam Narrative Exam General: No acute distress, well nourished, obese Eye: PERRL, EOMI, normal conjunctiva, no scleral icterus HENT: Normocephalic, atraumatic, normal hearing, moist oral mucosa. Ample anterior soft tissue, large neck circumference Neck: Supple, non-tender, no JVD, no lymphadenopathy, tunneled hd cath in the R chest, catheter site is ecchymotic Lungs: Clear to auscultation, bilateral air entry, no wheezing or rales. Heart: Normal S1 and S2, no S3 or S4 appreciated. Normal rate and regular rhythm, no murmurs, rubs gallops. Abdomen: Soft, non-tender, non-distended, normal bowel sounds. No guarding or rebound tenderness. Musculoskeletal: Normal range of motion and strength, no tenderness or swelling Skin: Skin is warm, dry, no rashes or lesions. 3+ pitting edema of bilateral LE at the ankles and feet up to the mid shins, +1 periorbital edema Neurologic: Alert, awake and oriented x3. CN II-XII grossly intact. No focal neuro deficits. No signs of meningeal irritation noted. Psychiatric: Cooperative, appropriate mood and affect Objective Labs 09/01/25 05:20 09/01/25 05:20 Labs: Laboratory Results - last 24 hr 08/30/25 08/30/25 08/31/25 05:25 21:39 04:41 WBC 1.8 L 2.1 L RBC 2.50 L 2.52 L Hgb 7.8 L 7.9 L Hct 24.3 L 24.5 L MCV 97 97 MCH 31.2 31.3 MCHC 32.1 32.2 RDW Std Deviation 55.5 H 56.8 H Plt Count 17 L* 17 L* Neut % (Auto) 66 65 Lymph % (Auto) 14 13 [place] % (Auto) 16 H 19 H Eos % (Auto) 3 2 Baso % (Auto) 1 1 Neut # (Auto) 1.2 L 1.4 L Lymph # (Auto) 0.3 L 0.3 L [place] # (Auto) 0.3 0.4 Eos # (Auto) 0.1 0.1 Baso # (Auto) 0.0 0.0 Immature Gran # (Auto) 0.01 H 0.01 H Absolute Nucleated RBC 0.00 0.00 Immature Gran % 1 H 1 H Nucleated RBC % 0 0 Sodium 138 Potassium 4.2 Chloride 99 Carbon Dioxide 27.8 Anion Gap 11 BUN 22 Creatinine 5.5 H* Estim Creat Clear Calc 16.4 L eGFR 9 L* BUN/Creatinine Ratio 4 L Glucose 140 H D Calculated Osmolality 280 Calcium 8.2 L Corrected Calcium 9.1 Phosphorus 4.3 Magnesium 1.8 Total Bilirubin 1.4 H AST 32 ALT < 7 L Alkaline Phosphatase 42 L Total Protein 6.5 6.7 Albumin 2.9 L Globulin 3.8 H 3.8 H Albumin/Globulin Ratio 0.7 L 0.8 L Misc Test Result Platelets confirmed Platelets confirmed ABG Interpretation ABG results: 08/20/25 09:18 VBG pH 7.38 VBG pCO2 29 L VBG pO2 72 H VBG Base Excess -8 L Quality Measures Quality Measures VTE prophylaxis Assessment & Plan Assessment Current Active Medications: Generic Name Dose Route Start Last Admin Trade Name Freq PRN Reason Stop Dose Admin Amlodipine Besylate 10 mg 08/23/25 09:00 08/31/25 08:13 Amlodipine Besylate 5 Mg Tablet PO 09/22/25 08:59 Not Given QDAY SHERYL Atorvastatin Calcium 10 mg 08/21/25 21:00 08/30/25 20:26 Atorvastatin Calcium 10 Mg Tablet PO 09/20/25 20:59 10 mg HS SHERYL Administration Dextrose 25 ml 08/20/25 10:14 Dextrose 50%-Water Inj 50 Ml Syringe IV 09/19/25 10:13 Q15MIN PRN BG 50-70 responsive npo pt Dextrose 50 ml 08/20/25 10:14 Dextrose 50%-Water Inj 50 Ml Syringe IV 09/19/25 10:13 Q15MIN PRN BG <50 OR BG <70 & pt unresponsive Diphenhydramine HCl 25 mg 08/31/25 08:07 Diphenhydramine 25 Mg Capsule PO 09/30/25 08:06 Q6HR PRN ITCHING Furosemide 40 mg 08/29/25 18:00 08/31/25 05:50 Furosemide Inj 10 Mg/Ml 4ml Vial IVP 09/28/25 17:59 40 mg BIDD SHERYL Administration Gabapentin 300 mg 08/31/25 09:00 08/31/25 08:13 Gabapentin 300 Mg Capsule PO 09/30/25 08:59 300 mg QDAY SHERYL Administration Glucagon 1 mg 08/20/25 10:14 Glucagon Inj 1 Mg Vial IM Q15MIN PRN BG <70, and no IV access Heparin Sodium (Porcine) 3,300 unit 08/25/25 11:40 08/29/25 15:22 Heparin Sod Inj 1000 Unit/Ml Vial 10 Ml INDWELLCAT 09/05/25 12:43 3,300 unit PRN PRN Administration DIALYSIS Albumin Human 25 gm in 100 mls @ 100 mls/hr 08/27/25 07:42 08/30/25 10:03 Albuminex 25% Ivpb IV 100 mls/hr Q30MIN PRN Administration DIALYSIS Insulin Degludec 20 unit 08/25/25 21:00 08/30/25 20:33 Insulin Degludec 5 Unit/0.05 Ml (Per 5 Units) SC 09/24/25 20:59 20 unit HS SHERYL Administration Insulin Human Lispro 0 unit 08/29/25 21:15 08/31/25 08:11 Insulin Lispro (Admelog) 1 Unit/0.01 Ml Unit SC 09/28/25 21:14 Not Given ACHS [facility] Protocol Lactulose 20 gm 08/20/25 22:00 08/31/25 05:51 Lactulose Syrup 20 Gm/30 Ml Udc PO 09/19/25 21:59 Not Given TID [facility] Protocol Ondansetron HCl 4 mg 08/20/25 10:08 Ondansetron Inj 2 Mg/Ml Inj 2 Ml IVP 09/19/25 10:07 Q6H PRN NAUSEA OR VOMITING Protocol Pantoprazole Sodium 40 mg 08/25/25 21:00 08/31/25 08:14 Pantoprazole Inj 40 Mg Vial IVP 09/24/25 20:59 40 mg BID SHERYL Administration Propranolol HCl 10 mg 08/20/25 21:00 08/31/25 08:14 Propranolol 10 Mg Tablet PO 09/19/25 20:59 10 mg BID SHERYL Administration Sevelamer Carbonate 800 mg 08/23/25 12:00 08/31/25 08:12 Sevelamer Carbonate 800 Mg Tablet PO 09/22/25 11:59 800 mg TIDWM SHERYL Administration Plan Ms Hopper is a 55 year old woman with a hx significant for advanced CKD that has now progressed to ESRD, HFpEF 55-60 12/2024, HLD, HTN, who presented with malaise and shortness of breath, found to be significantly volume overloaded, with elevated BUN and Cr, Nephrology consulted, Dr Neil. started on dialysis, s/p tunneled cath placement. pt pending authorization for snf, pt recommended. #Anemia #Leukopenia #Thrombocytopenia #Pancytopenia Patient has signs of end-stage liver disease as all cell lines are low, abnormal coag panel, low albumin, elevated T. bili. Etiology of pancytopenia may be related to ESLD in addition to ESRD. However, may be underlying hematological disorder and will consult hematology. 08/31 [id number]-> transfuse 1 unit Pheresesis and 15 unit cryoprecipitate - Hematology Dr. Ortiz consulted, appreciate recommendations #Acute posthemorrhagic anemia #New onset hematochezia and hematuria #GI bleed #Grade II internal hemorrhoids #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 Concern for upper GI bleed due to low hemoglobin and hematocrit and hx of esophageal varices..Patient received 6 blood transfusions with HD s/p 5U pRBC, 2U plt. FOBT + Last EGD 12/[address] Ny: gastritis, gastric varices, banding not attempted given low PLT, grade 1 esophageal varices that were too small to band. EGD 08/26: Esophagitis, gastritis w/ hemorrhage (characterized by congestion/edema). No bx taken s/p Ceftriaxone1 gm qd (08/26- 08/27) for SBP ppx, Octreotide 50 mcg/hr (08/26- 08/27) Colonoscopy 08/29: Show internal hemorrhoids grade 1- GI reccomend repeat colonoscopy in 5 years for surveillance 08/31: had 2 bowel movement today with bright red blood per rectum with clots, hematuria, GI informed.Will f/u. The anorectal bleeding might be due to internal hemorrhoids bleeding Plan: - GI consulted, appreciate recs- repeat CBC at 7pm, will see the pt tonight. - Daily CBCs - Transfuse hemoglobin less than 7 - Continue Protonix 40mg IVP BID #Hx of Advanced CKD, now with ESRD on HD #Chronic Normocytic Anemia #Severe persistent thrombocytopenia #Severe leukopenia #Hyperkalemia - resolved #Hyperphosphatemia #Hypermagnesemia Worsening BUN, Cr, low bicarb, electrolyte abnormalities Completed 3 days of consecutive HD (tolerating well), has tunneled dialysis catheter. 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 Plan: - Lactulose 20 TID - CTM chest for increased bruising or signs of hematoma at tunneled hd site. #HFpEF (echo 12/2024 w EF 55-60%) #Type II NSTEMI #Acute CHF exacerbation - resolved Weight on admission 129.27 kg Likely 2/2 ESRD (see above) BNP 200s Trend troponin, till peaked : 0.106-->0.124 --> 0.097- stop trending s/p Lasix (held given low urine output, getting dialysis) Plan: - Cardiology consulted, appreciate recs - Strict I and O - Daily Weights #Type 2 DM, insulin dependent A1c 6.5 Home regimen 35 U long acting BID , 20 U short acting tid with meals, Ozempic SC qweekly Uses freestyle merna Plan: - ISS Step 2 - Degludec 20 #Diabetic Neuropathy Ambulates with a 4 wheel walker Plan: - Gabapentin 400 mg PO BID - PT consulted, recommend snf #HTN Plan: - Amlodipine 10 mg PO daily #HLD Plan: - Atorvastatin 10 mg PO DHS #Gout Plan: - hold home Ursodiole mg PO TID i/s/o ESRD (see above) #PHUONG Large neck circumference. patient desats to 70s on NC when sleeping, needs to use cpap at night. Daignosed with PHUONG, never recieved CPAP machine at home Plan: - Discharge with CPAP - CPAP qhs while inpatient #Chronic low back pain Plan: - [place] 10 mg q6h PRN #Orthostatic tremors Prior ED presntation with tremors, had been evaluated by Dr. Juan. LP 11/2024, recommended outpatient follow up as needed. 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 Plan - wound care consulted, appreciate recs Hospital management: Lines: peripheral IV Diet: renal Bowel: Lactulose 20 TID GI prophylaxis: Pantoprazole 40 mg IV twice daily DVT prophylaxis: SCD given low platelets CODE STATUS: Full code Patient seen and assessed under supervision of attending physician Dr.K Mann and discuss with senior resident Dr. Ed Ta PGY-2 Elyssa Cruz MD PGY-1, Internal Medicine Please note: this document was transcribed using voice recognition technology; minor inaccuracies may be present. Attending Provider Attestation/Addendum Jenni, Maria Fernanda Mann, , attest that I was physically present for the blank portions of the service and evaluated the patient with the resident and I reviewed and discussed the case with the resident and agree with the resident's findings and plans of care as documented above Patient seen and evaluated this AM. She states that she is feeling well and has no acute complaints at this time. However, patient passed 2 large bloody bowel movements with clots this afternoon. Platelet count has been low at 17. Will give 1 unit of platelets and cryoprecipitate. Case was discussed with hematology and recommended vitamin K, cryoprecipitate and platelet transfusion as well due to end-stage renal disease and liver disease. Will continue to trend H&H. GI made aware of large bright red bloody BM. Patient otherwise has no acute complaints. She reports that she makes minimal urine. Urine appears very dark. Will discontinue furosemide. Continue dialysis per nephro schedule. She continues to bilateral lower EXTR.
--- NOTE | 2025-08-31 10:50 | PC.SS ---
Follow up note: Patient already has prior auth. Patient has o/p dialysis schedule and perm cath placed. Pending d/c to [facility] once stable
--- NOTE | 2025-08-31 11:16 | ESPR_ITS ---
Documentation for date of: 08/31/25 Subjective Subjective Interval history: Patient evaluated hemoglobin hematocrit 7.6 and 23.7 Exam Vital Signs Temp Pulse Resp BP Pulse Ox O2 Del Method O2 Flow Rate 97.7 F 71 16 114/56 L 97 Room Air 2 08/31/25 07:54 08/31/25 08:14 08/31/25 07:54 08/31/25 08:14 08/31/25 07:54 08/31/25 07:54 08/31/25 07:26 Objective Labs 09/01/25 16:25 09/01/25 05:20 Labs: Laboratory Results - last 24 hr 08/30/25 08/30/25 08/31/25 05:25 21:39 04:41 WBC 1.8 L 2.1 L RBC 2.50 L 2.52 L Hgb 7.8 L 7.9 L Hct 24.3 L 24.5 L MCV 97 97 MCH 31.2 31.3 MCHC 32.1 32.2 RDW Std Deviation 55.5 H 56.8 H Plt Count 17 L* 17 L* Neut % (Auto) 66 65 Lymph % (Auto) 14 13 [place] % (Auto) 16 H 19 H Eos % (Auto) 3 2 Baso % (Auto) 1 1 Neut # (Auto) 1.2 L 1.4 L Lymph # (Auto) 0.3 L 0.3 L [place] # (Auto) 0.3 0.4 Eos # (Auto) 0.1 0.1 Baso # (Auto) 0.0 0.0 Immature Gran # (Auto) 0.01 H 0.01 H Absolute Nucleated RBC 0.00 0.00 Immature Gran % 1 H 1 H Nucleated RBC % 0 0 Sodium 138 Potassium 4.2 Chloride 99 Carbon Dioxide 27.8 Anion Gap 11 BUN 22 Creatinine 5.5 H* Estim Creat Clear Calc 16.4 L eGFR 9 L* BUN/Creatinine Ratio 4 L Glucose 140 H D Calculated Osmolality 280 Calcium 8.2 L Corrected Calcium 9.1 Phosphorus 4.3 Magnesium 1.8 Total Bilirubin 1.4 H AST 32 ALT < 7 L Alkaline Phosphatase 42 L Total Protein 6.5 6.7 Albumin 2.9 L Globulin 3.8 H 3.8 H Albumin/Globulin Ratio 0.7 L 0.8 L Misc Test Result Platelets confirmed Platelets confirmed Impressions Impression: On and off rectal bleeding with a relatively stable hemoglobin hematocrit Will continue to bleed as the colonoscopy has shown internal hemorrhoids they were not large enough at the time of the colonoscopy to do any intervention ABG Interpretation ABG results: 08/20/25 09:18 VBG pH 7.38 VBG pCO2 29 L VBG pO2 72 H VBG Base Excess -8 L Assessment & Plan A&P Narrative # Hemoccult positive stool with drop in hemoglobin hematocrit requiring blood transfusion on a weekly basis Plan N.p.o. midnight tonight except p.o. meds Consent obtained in the dialysis room for fiberoptic esophagogastroduodenoscopy with possible biopsy possible therapeutic intervention under intravenous moderate sedation scheduled for tomorrow morning Depending on the results of the upper endoscopy patient may need a colonoscopy prior to discharge and as there is no record of colonoscopy on board although she claims she had a colonoscopy in the last 2 [address] Brow[place] in [place] Other medical problems include # End-stage renal disease on hemodialysis # End-stage liver disease due to ROSE cirrhosis with leukopenia and thrombocytopenia Thank you very much for the opportunity to participate in the care of this patient Time Spent With Patient Time: Total time spent is greater than 50% in coordination of care (as documented) at patient's floor/unit and/or counseling patient:
[2025-08-31] MEDS: INSULIN LISPRO (AdmeLOG) 1 UNIT/0.01 ML UNIT SC ×3 (11:36→20:39)
--- NOTE | 2025-08-31 14:22 | PC.SS ---
Follow up note: SS spoke to patient who changed her mind and wants to go to another facility with a preference of [facility]. SS resent inquiry to [facility]. Spoke to Marsha and she is agreeable and will have a bed ready by tomorrow. Patient d/c was held due to her having a bm with blood in stool.
[2025-08-31 14:30] LABS: Hematocrit 24.2 % (36.0-46.0)
[2025-08-31 14:53] LABS: Hemoglobin 7.6 g/dL (12.0-16.0)
--- NOTE | 2025-08-31 16:12 | ESCONSULT_ITS ---
RE: YAQUELIN STONE : 1970 DATE OF CONSULTATION: 08/31/2025 REFERRING PHYSICIAN: Dr. Tammie King. REASON FOR CONSULTATION: 1. Thrombocytopenia. 2. Renal failure on dialysis. 3. Liver cirrhosis. 4. Hypersplenism. HISTORY OF PRESENT ILLNESS: Mrs. Stone is a 55-year-old female who was admitted because of severe shortness of breath. Patient mentioned that she was having this shortness of breath with 3+ pitting edema and her shortness of breath was getting worse. It is noted that she had a past history of hypertension, hyperlipidemia, insulin-dependent type 2 diabetes mellitus, history of thrombocytopenia secondary to moderate hypersplenism and cirrhosis, chronic kidney disease and she is having a bleeding and because of this low platelet counts, this consultation is obtained. It is noted from the record that patient has a stage IV kidney disease, a severe thrombocytopenia. She had a recent embolization procedure in [place] for varices that was done on 08/10. Denies any other systemic symptom. PAST MEDICAL HISTORY: As mentioned, cirrhosis, stage IV kidney disease and end- stage renal disease, cirrhosis, moderate hypersplenism, recurrent necrotizing fasciitis, type 2 diabetes mellitus, gout, esophageal varices, gastric varices. SOCIAL HISTORY: Quit smoking in 2015, previously used 2 to 3 cigarettes on special occasion. Quit drink in May 2024; previously on special occasion. Denies use of illicit drug. FAMILY HISTORY: No information. PHYSICAL EXAMINATION: GENERAL: She is alert, obese. VITAL SIGNS: Her vitals were stable except the BP was 134/56 at 15:15. HEENT: Pupil are reactive to light and accommodation. Sclerae nonicteric. NECK: Supple. There are no JVD or palpable mass. LUNGS: Good air entry bilaterally. They are clear to auscultation. HEART: Regular. ABDOMEN: Soft. Bowel sounds are present. EXTREMITY: More than 3+ pitting edema bilaterally. CBS: Patient moves her lower extremities and follow simple command. PLAN AND RECOMMENDATION: I agree with your present plan of treatment. Her blood work today: WBC count 2.1, hemoglobin 7.6, hematocrit 24.2 with normal indices; platelet count of 17,000. I had a discussion with Dr. Maria Fernanda Mann earlier and mentioned to her that if she is developing bleeding, one can give her a platelet transfusion and also give her a cryoprecipitate and also give her vitamin C and vitamin K. Hopefully that will help with the bleeding, but because of her hypersplenism and chronic thrombocytopenia, one can give the platelet depending on the clinical situation. One can monitor her closely. Patient asked simple question, they were answered to her satisfaction. I thank you, Dr. Tammie King, for letting me participate in the care of this interesting patient. If you have any question, please feel free to contact me. DT: 15:54:11 TT: 16:11:00 Ref: [id number] - TID: [id number]
[2025-08-31 17:10] LABS: Fibrinogen 256 mg/dL (175-375)
[2025-08-31 19:46] LABS: Basophils # (Auto) 0.0 Thou/mm3 (0.0-0.2); Basophils % (Auto) 1 % (0-2.5); Eosinophils # (Auto) 0.0 Thou/mm3 (0.0-0.5); Eosinophils % (Auto) 2 % (0-10); Hematocrit 23.8 % (36.0-46.0); Immature Granulocytes Auto 0.01 Thou/mm3 (0.00-0.00); Lymphocytes # (Auto) 0.2 Thou/mm3 (1.0-4.8); Lymphocytes % (Auto) 13 % (10-50); Mean Corpuscular HGB Conc 31.5 g/dl (31.0-37.0); Mean Corpuscular Hemoglobin 30.6 pg (25.0-35.0); Mean Corpuscular Volume 97 fL (80-100); Monocytes # (Auto) 0.2 Thou/mm3 (0.0-0.8); Monocytes % (Auto) 13 % (0-12); Neutrophils # (Auto) 1.2 Thou/mm3 (1.8-7.7); Neutrophils % (Auto) 71 % (37-80); Nucleated Red Blood Cell # 0.00 Thou/mm3 (0.00-0.00); Nucleated Red Blood Cell % 0 /100 WBC (0); RDW Standard Deviation 56.4 fL (36.4-46.3); Red Blood Count 2.45 Miln/mm3 (4.00-5.20); White Blood Count 1.7 Thou/mm3 (3.6-11.0)
[2025-08-31 19:49] LABS: Hemoglobin 7.5 g/dL (12.0-16.0)
[2025-08-31 19:50] LABS: Platelet Count 15 Thou/mm3 (140-440)
[2025-08-31 19:51] LABS: Slide Review Platelets confirmed
[2025-08-31] MEDS: ATORVASTATIN CALCIUM 10 MG TABLET PO (20:39)
[2025-08-31] MEDS: INSULIN DEGLUDEC 5 UNIT/0.05 ML (PER 5 UNITS) 20 UNIT SC (20:40)
[2025-09-01] VITALS (45 sets, daily range): BP systolic 104–160; BP diastolic 44–75; PULSE 5–75; RESP 16–99; TEMP 36.2–37.3; O2SAT 90–99; BMI 60.3
[2025-09-01 04:18] LABS: Collection Type, Urine Catheter
[2025-09-01 04:51] LABS: Bacteria,Urine 3+; Bilirubin,Urine Negative (Negative); Blood,Urine 3+ (Negative); Budding Yeast,Urine Present; Clarity,Urine Turbid (Clear/Hazy); Color,Urine Orange (Lt Yel-Yel); Glucose, Urine Negative (Negative); Ketones,Urine Negative (Negative); Leukocyte Esterase,Urine Positive (Negative); Nitrite,Urine Negative (Negative); PH,Urine 5.0 (5.0-7.0); Protein,Urine 1+ (Neg - Trace); RBC,Urine 1842 /hpf (0-3); Specific Gravity,Urine 1.021 (1.001-1.035); Squamous Epithelial Cell,Urine 32 /hpf (0-5); Urobilinogen,Urine Negative mg/dL (0.0-1.0); WBC,Urine 277 /hpf (0-5)
[2025-09-01 05:51] LABS: Basophils # (Auto) 0.0 Thou/mm3 (0.0-0.2); Basophils % (Auto) 1 % (0-2.5); Eosinophils # (Auto) 0.0 Thou/mm3 (0.0-0.5); Eosinophils % (Auto) 2 % (0-10); Hematocrit 23.7 % (36.0-46.0); Immature Granulocytes Auto 0.01 Thou/mm3 (0.00-0.00); Lymphocytes # (Auto) 0.3 Thou/mm3 (1.0-4.8); Lymphocytes % (Auto) 15 % (10-50); Mean Corpuscular HGB Conc 32.1 g/dl (31.0-37.0); Mean Corpuscular Hemoglobin 31.1 pg (25.0-35.0); Mean Corpuscular Volume 97 fL (80-100); Monocytes # (Auto) 0.3 Thou/mm3 (0.0-0.8); Monocytes % (Auto) 15 % (0-12); Neutrophils # (Auto) 1.4 Thou/mm3 (1.8-7.7); Neutrophils % (Auto) 68 % (37-80); Nucleated Red Blood Cell # 0.00 Thou/mm3 (0.00-0.00); Nucleated Red Blood Cell % 0 /100 WBC (0); RDW Standard Deviation 56.8 fL (36.4-46.3); Red Blood Count 2.44 Miln/mm3 (4.00-5.20); White Blood Count 2.0 Thou/mm3 (3.6-11.0)
[2025-09-01 06:43] LABS: Alanine Aminotransferase < 7 U/L (10-49); Albumin, Serum 3.0 gm/dL (3.5-5.0); Albumin/Globulin Ratio 0.8 (1.2-2.2); Alkaline Phosphatase 46 U/L (46-116); Anion Gap 10 (7-16); Aspartate Amino Transferase 25 U/L (0-34); BUN/Creatinine Ratio 5 Ratio (12-20); Bilirubin,Total 1.4 mg/dL (0.3-1.2); Blood Urea Nitrogen 34 mg/dL (9-23); Calcium 8.5 mg/dL (8.3-10.6); Calcium (Corrected) 9.3 mg/dL (8.5-10.1); Carbon Dioxide 27.6 mMol/L (20.0-31.0); Chloride 99 mMol/L (98-107); Creatinine (Component) 6.7 mg/dL (0.6-1.3); Estimated Creatinine Clearance 13.2 mL/min (>60); Globulin 3.7 gm/dL (2.3-3.5); Glucose 202 mg/dL (74-106); Magnesium 1.9 mg/dL (1.6-2.6); Osmolality,Calculated 287 (275-295); Phosphorous 4.2 mg/dL (2.4-5.1); Potassium 4.2 mMol/L (3.4-5.1); Sodium 137 mMol/L (136-145); Total Protein 6.7 gm/dL (5.7-8.2); eGFR 7 See Note
[2025-09-01 07:51] LABS: Hemoglobin 7.6 g/dL (12.0-16.0); Platelet Count 13 Thou/mm3 (140-440)
--- NOTE | 2025-09-01 08:48 | PC.NURSE ---
BP CONT'S. TO TREND DOWN. PT REMAINS ASYMPTOMATIC AND DENIES ALL S/S OF HYPOTENSION, UF GOAL LOWERED TO 2L TOLERATED WILL CONT. TO MONITOR
[2025-09-01 09:10] LABS: INR 1.5 (0.9-1.3); Prothrombin Time 15.1 Seconds (9.0-12.2)
[2025-09-01 09:17] LABS: Slide Review Platelets confirmed
--- NOTE | 2025-09-01 09:26 | ESPR_ITS ---
<Statement entered by Willis Ta MD - 09/01/25 12:52> No acute overnight events. Seen and examined at bedside and during dialysis, resting comfortably in bed. Continues to have dark red urine in bag and had bright red blood in rectum. Was transfused 1 unit platelets and 11 units of cryoprecipitate but morning labs showed that platelets had decreased compared to yesterday. Touched base with GI who will evaluate the patient today. Also touched base with oncology who is recommending to give vitamin C and K. UA significant for 1800 RBCs and will obtained microscopy for further evaluation. Will continue to monitor and transfuse as needed given that she is actively bleeding. ----- Note reviewed and agree with care plan as documented. Please refer to the note below for further details. Plan discussed with attending physician Dr. Mackenzie Ta MD PGY-2 Internal Medicine Documentation for date of: 09/01/25 Subjective Subjective Interval history: Overnight patient had another red blood per rectum. Repeat CBC was unchanged with hemoglobin 7.5 hematocrit 33.8 and platelet count 15. GI doctor was made aware, plans to see patient later today. Urinalysis positive for leukocytes esterase, urine RBC 1842, urine WBC 277, hematuria 2+, urine yeast present, no casts noted. Today patient was seen and examined at bedside with no active complaint., She denies chest pain, shortness of breath, muscle ache. A.m. labs unchanged from prior, however noted decreased platelet count 13. Real Estate Sales Agent Dr Ortiz was made aware, and no new recommendation was made. Patient received 1 unit platelet transfusion today. Started patient on vitamin C. Urine culture was ordered. Dialysis today- 2700cc output Exam Vital Signs Temp Pulse Resp BP Pulse Ox O2 Del Method O2 Flow Rate 98.0 F 64 18 104/55 L 98 Nasal Cannula 1 09/01/25 08:06 09/01/25 09:15 09/01/25 08:06 09/01/25 09:15 09/01/25 08:06 09/01/25 05:10 09/01/25 08:06 Narrative Exam Narrative Exam General: No acute distress, well nourished, obese Eye: PERRL, EOMI, normal conjunctiva, no scleral icterus HENT: Normocephalic, atraumatic, normal hearing, moist oral mucosa. Ample anterior soft tissue, large neck circumference Neck: Supple, non-tender, no JVD, no lymphadenopathy, tunneled hd cath in the R chest, catheter site is ecchymotic Lungs: Clear to auscultation, bilateral air entry, no wheezing or rales. Heart: Normal S1 and S2, no S3 or S4 appreciated. Normal rate and regular rhythm, no murmurs, rubs gallops. Abdomen: Soft, non-tender, non-distended, normal bowel sounds. No guarding or rebound tenderness. Musculoskeletal: Normal range of motion and strength, no tenderness or swelling Skin: Skin is warm, dry, no rashes or lesions. 3+ pitting edema of bilateral LE at the ankles and feet up to the mid shins Neurologic: Alert, awake and oriented x3. CN II-XII grossly intact. No focal neuro deficits. No signs of meningeal irritation noted. Psychiatric: Cooperative, appropriate mood and affect Objective Labs 09/02/25 05:05 09/02/25 05:05 Labs: Laboratory Results - last 24 hr 08/23/25 08/31/25 08/31/25 08:25 04:41 14:18 WBC RBC Hgb 7.6 L Hct 24.2 L MCV MCH MCHC RDW Std Deviation Plt Count Neut % (Auto) Lymph % (Auto) [place] % (Auto) Eos % (Auto) Baso % (Auto) Neut # (Auto) Lymph # (Auto) [place] # (Auto) Eos # (Auto) Baso # (Auto) Immature Gran # (Auto) Absolute Nucleated RBC Immature Gran % Nucleated RBC % PT INR Fibrinogen 256 Sodium Potassium Chloride Carbon Dioxide Anion Gap BUN Creatinine Estim Creat Clear Calc eGFR BUN/Creatinine Ratio Glucose Calculated Osmolality Calcium Corrected Calcium Phosphorus Magnesium Total Bilirubin AST ALT Alkaline Phosphatase Total Protein Albumin Globulin Albumin/Globulin Ratio Ur Collection Type Urine Color Urine Clarity Urine pH Ur Specific [place] Urine Protein Urine Glucose (UA) Urine Ketones Urine Blood Urine Nitrite Urine Bilirubin Urine Urobilinogen (Auto) Ur Leukocyte Esterase Urine RBC Urine WBC Ur Squamous Epith Cells Urine Bacteria Urine Yeast (Budding) Misc Test Result Platelets confirmed Blood Type Antibody Screen Crossmatch See Detail Blood Bank Wristband ID Blood Bank Comment 08/31/25 08/31/25 09/01/25 17:20 19:26 03:30 WBC 1.7 L RBC 2.45 L Hgb 7.5 L Hct 23.8 L MCV 97 MCH 30.6 MCHC 31.5 RDW Std Deviation 56.4 H Plt Count 15 L* Neut % (Auto) 71 Lymph % (Auto) 13 [place] % (Auto) 13 H Eos % (Auto) 2 Baso % (Auto) 1 Neut # (Auto) 1.2 L Lymph # (Auto) 0.2 L [place] # (Auto) 0.2 Eos # (Auto) 0.0 Baso # (Auto) 0.0 Immature Gran # (Auto) 0.01 H Absolute Nucleated RBC 0.00 Immature Gran % 1 H Nucleated RBC % 0 PT INR Fibrinogen Sodium Potassium Chloride Carbon Dioxide Anion Gap BUN Creatinine Estim Creat Clear Calc eGFR BUN/Creatinine Ratio Glucose Calculated Osmolality Calcium Corrected Calcium Phosphorus Magnesium Total Bilirubin AST ALT Alkaline Phosphatase Total Protein Albumin Globulin Albumin/Globulin Ratio Ur Collection Type Catheter Urine Color [place] A Urine Clarity Turbid A Urine pH 5.0 Ur Specific [place] 1.021 Urine Protein 1+ A Urine Glucose (UA) Negative Urine Ketones Negative Urine Blood 3+ A Urine Nitrite Negative Urine Bilirubin Negative Urine Urobilinogen (Auto) Negative Ur Leukocyte Esterase Positive Urine RBC 1842 H Urine WBC 277 H Ur Squamous Epith Cells 32 H Urine Bacteria 3+ A Urine Yeast (Budding) Present A Misc Test Result Platelets confirmed Blood Type A Negative Antibody Screen NEGATIVE Crossmatch Blood Bank Wristband ID Yes Blood Bank Comment PLATP Ready 09/01/25 05:20 WBC 2.0 L RBC 2.44 L Hgb 7.6 L Hct 23.7 L MCV 97 MCH 31.1 MCHC 32.1 RDW Std Deviation 56.8 H Plt Count 13 L* Neut % (Auto) 68 Lymph % (Auto) 15 [place] % (Auto) 15 H Eos % (Auto) 2 Baso % (Auto) 1 Neut # (Auto) 1.4 L Lymph # (Auto) 0.3 L [place] # (Auto) 0.3 Eos # (Auto) 0.0 Baso # (Auto) 0.0 Immature Gran # (Auto) 0.01 H Absolute Nucleated RBC 0.00 Immature Gran % 1 H Nucleated RBC % 0 PT 15.1 H INR 1.5 H Fibrinogen Sodium 137 Potassium 4.2 Chloride 99 Carbon Dioxide 27.6 Anion Gap 10 BUN 34 H Creatinine 6.7 H* D Estim Creat Clear Calc 13.2 L eGFR 7 L* BUN/Creatinine Ratio 5 L Glucose 202 H D Calculated Osmolality 287 Calcium 8.5 Corrected Calcium 9.3 Phosphorus 4.2 Magnesium 1.9 Total Bilirubin 1.4 H AST 25 ALT < 7 L Alkaline Phosphatase 46 Total Protein 6.7 Albumin 3.0 L Globulin 3.7 H Albumin/Globulin Ratio 0.8 L Ur Collection Type Urine Color Urine Clarity Urine pH Ur Specific [place] Urine Protein Urine Glucose (UA) Urine Ketones Urine Blood Urine Nitrite Urine Bilirubin Urine Urobilinogen (Auto) Ur Leukocyte Esterase Urine RBC Urine WBC Ur Squamous Epith Cells Urine Bacteria Urine Yeast (Budding) Misc Test Result Platelets confirmed Blood Type Antibody Screen Crossmatch Blood Bank Wristband ID Blood Bank Comment ABG Interpretation ABG results: 08/20/25 09:18 VBG pH 7.38 VBG pCO2 29 L VBG pO2 72 H VBG Base Excess -8 L Quality Measures Quality Measures VTE prophylaxis Assessment & Plan Assessment Current Active Medications: Generic Name Dose Route Start Last Admin Trade Name Freq PRN Reason Stop Dose Admin Hydrocodone Bitart/Acetaminophen 1 tab 08/31/25 13:44 09/01/25 04:28 Hydrocodone/Apap 10/325 Tab PO 09/05/25 13:43 1 tab Q6HR PRN Administration back pain Amlodipine Besylate 10 mg 08/23/25 09:00 08/31/25 08:13 Amlodipine Besylate 5 Mg Tablet PO 09/22/25 08:59 Not Given QDAY SHERYL Ascorbic Acid 1,000 mg 09/01/25 09:00 Ascorbic Acid 250 Mg Tablet PO 10/01/25 08:59 DAILY SHERYL Atorvastatin Calcium 10 mg 08/21/25 21:00 08/31/25 20:39 Atorvastatin Calcium 10 Mg Tablet PO 09/20/25 20:59 10 mg HS SHERYL Administration Dextrose 25 ml 08/20/25 10:14 Dextrose 50%-Water Inj 50 Ml Syringe IV 09/19/25 10:13 Q15MIN PRN BG 50-70 responsive npo pt Dextrose 50 ml 08/20/25 10:14 Dextrose 50%-Water Inj 50 Ml Syringe IV 09/19/25 10:13 Q15MIN PRN BG <50 OR BG <70 & pt unresponsive Diphenhydramine HCl 25 mg 08/31/25 08:07 08/31/25 18:02 Diphenhydramine 25 Mg Capsule PO 09/30/25 08:06 25 mg Q6HR PRN Administration ITCHING Gabapentin 300 mg 08/31/25 09:00 08/31/25 08:13 Gabapentin 300 Mg Capsule PO 09/30/25 08:59 300 mg QDAY SHERYL Administration Glucagon 1 mg 08/20/25 10:14 Glucagon Inj 1 Mg Vial IM Q15MIN PRN BG <70, and no IV access Heparin Sodium (Porcine) 3,300 unit 08/25/25 11:40 08/29/25 15:22 Heparin Sod Inj 1000 Unit/Ml Vial 10 Ml INDWELLCAT 09/05/25 12:43 3,300 unit On Hold: 08/31/25 14:50 PRN PRN Administration DIALYSIS Albumin Human 25 gm in 100 mls @ 100 mls/hr 08/27/25 07:42 08/30/25 10:03 Albuminex 25% Ivpb IV 100 mls/hr Q30MIN PRN Administration DIALYSIS Phytonadione 1 mg/ Sodium 50.5 mls @ 101 mls/hr 09/01/25 09:00 Chloride IV 09/03/25 09:29 QDAY SHERYL Insulin Degludec 20 unit 08/25/25 21:00 08/31/25 20:40 Insulin Degludec 5 Unit/0.05 Ml (Per 5 Units) SC 09/24/25 20:59 20 unit HS SHERYL Administration Insulin Human Lispro 0 unit 08/29/25 21:15 09/01/25 09:07 Insulin Lispro (Admelog) 1 Unit/0.01 Ml Unit SC 09/28/25 21:14 Not Given ACHS [facility] Protocol Lactulose 20 gm 08/20/25 22:00 09/01/25 05:00 Lactulose Syrup 20 Gm/30 Ml Udc PO 09/19/25 21:59 Not Given TID [facility] Protocol Ondansetron HCl 4 mg 08/20/25 10:08 Ondansetron Inj 2 Mg/Ml Inj 2 Ml IVP 09/19/25 10:07 Q6H PRN NAUSEA OR VOMITING Protocol Pantoprazole Sodium 40 mg 09/01/25 09:15 Pantoprazole 40 Mg Tablet PO 10/01/25 09:14 BID SHERYL Propranolol HCl 10 mg 08/20/25 21:00 08/31/25 20:39 Propranolol 10 Mg Tablet PO 09/19/25 20:59 10 mg BID SHERYL Administration Sevelamer Carbonate 800 mg 08/23/25 12:00 09/01/25 09:08 Sevelamer Carbonate 800 Mg Tablet PO 09/22/25 11:59 Not Given TIDWM SHERYL Plan Ms Hopper is a 55 year old woman with a hx significant for advanced CKD that has now progressed to ESRD, HFpEF 55-60 12/2024, HLD, HTN, who presented with malaise and shortness of breath, found to be significantly volume overloaded, with elevated BUN and Cr, Nephrology consulted, Dr Neil. started on dialysis, s/p tunneled cath placement. pt pending authorization for snf, pt recommended. #Anemia #Leukopenia #Thrombocytopenia #Pancytopenia Patient has signs of end-stage liver disease as all cell lines are low, abnormal coag panel, low albumin, elevated T. bili. Etiology of pancytopenia may be related to ESLD in addition to ESRD. However, may be underlying hematological disorder and will consult hematology. 08/31 [id number]-> transfuse 1 unit Pheresesis and 15 unit cryoprecipitate( so far pt received 11) 09/01: Platelets 13-> transfuse 1 unit Pheresesis - Hematology Dr. Ortiz consulted, appreciate recommendations- will follow - resume home Vitamin C 1000mg daily #Acute posthemorrhagic anemia #New onset hematochezia and hematuria #GI bleed #Grade II internal hemorrhoids #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 Concern for upper GI bleed due to low hemoglobin and hematocrit and hx of esophageal varices..Patient received 6 blood transfusions with HD s/p 5U pRBC, 2U plt. FOBT + Last EGD 12/[address] Ny: gastritis, gastric varices, banding not attempted given low PLT, grade 1 esophageal varices that were too small to band. EGD 08/26: Esophagitis, gastritis w/ hemorrhage (characterized by congestion/edema). No bx taken s/p Ceftriaxone1 gm qd (08/26- 08/27) for SBP ppx, Octreotide 50 mcg/hr (08/26- 08/27) Colonoscopy 08/29: Show internal hemorrhoids grade 1- GI reccomend repeat colonoscopy in 5 years for surveillance 08/31: had 2 bowel movement today with bright red blood per rectum with clots, hematuria, GI informed. Will f/u. The anorectal bleeding might be due to internal hemorrhoids bleeding Plan: - GI consulted, appreciate recs- serial CBC, will see the pt today. - Daily CBCs - Transfuse hemoglobin less than 7 - Continue Protonix 40mg IVP BID #Hematuria #Acute Cystitis Acute patient does report urgency to urinate however she has been anuric since admission. She denies dysuria and burning sensation. 08/31-Urinalysis positive for leukocytes esterase, urine RBC 1842, urine WBC 277, hematuria 2+, urine yeast present, no casts noted. Urine color is dark red. Patient is afebrile with WBC 2.0, leukopenia. Plan - Urine culture ordered - Continue to monitor urine output #Hx of Advanced CKD, now with ESRD on HD #Chronic Normocytic Anemia #Severe persistent thrombocytopenia #Severe leukopenia #Hyperkalemia - resolved #Hyperphosphatemia- resolved #Hypermagnesemia- resolved Worsening BUN, Cr, low bicarb, electrolyte abnormalities Completed 3 days of consecutive HD (tolerating well), has tunneled dialysis catheter. HD MWF Conversion of of nontunneled dialysis catheter to tunneled 08/24 Received 3 units of platelet transfusion Dialysis 08/20, 08/22, 08/23, 08/24, 08/25, 08/27, 08/29,08/30, 09/01 - Stopped lasix 40 mg IVP BID Plan: - Nephrology Dr. 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 Plan: - Lactulose 20 TID - CTM chest for increased bruising or signs of hematoma at tunneled hd site. #HFpEF (echo 12/2024 w EF 55-60%) #Type II NSTEMI #Acute CHF exacerbation - resolved Weight on admission 129.27 kg Likely 2/2 ESRD (see above) BNP 200s Trend troponin, till peaked : 0.106-->0.124 --> 0.097- stop trending s/p Lasix (held given low urine output, getting dialysis) Plan: - Cardiology consulted, appreciate recs - Strict I and O - Daily Weights #Type 2 DM, insulin dependent A1c 6.5 Home regimen 35 U long acting BID , 20 U short acting tid with meals, Ozempic SC qweekly Uses freestyle merna Plan: - ISS Step 2 - Degludec 20 #Diabetic Neuropathy Ambulates with a 4 wheel walker Plan: - Gabapentin 400 mg PO BID - PT consulted, recommend snf #HTN Plan: - Amlodipine 10 mg PO daily #HLD Plan: - Atorvastatin 10 mg PO DHS #Gout Plan: - hold home Ursodiole mg PO TID i/s/o ESRD (see above) #PHUONG Large neck circumference. patient desats to 70s on NC when sleeping, needs to use cpap at night. Daignosed with PHUONG, never recieved CPAP machine at home Plan: - Discharge with CPAP - CPAP qhs while inpatient #Chronic low back pain Plan: - [place] 10 mg q6h PRN #Orthostatic tremors Prior ED presntation with tremors, had been evaluated by Dr. Juan. LP 11/2024, recommended outpatient follow up as needed. 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 Plan - wound care consulted, appreciate recs Hospital management: Lines: peripheral IV Diet: renal Bowel: Lactulose 20 TID GI prophylaxis: Pantoprazole 40 mg IV twice daily DVT prophylaxis: SCD given low platelets CODE STATUS: Full code Patient seen and assessed under supervision of attending physician Dr.K Mann and discuss with senior resident Dr. Ed Ta PGY-2 Elyssa Cruz MD PGY-1, Internal Medicine Please note: this document was transcribed using voice recognition technology; minor inaccuracies may be present. Attending Provider Attestation/Addendum Maria Fernanda Arteaga, DO, attest that I was physically present for the blank portions of the service and evaluated the patient with the resident and I reviewed and discussed the case with the resident and agree with the resident's findings and plans of care as documented above Patient seen and evaluated this AM during dialysis. She states she is doing well. However, she continues to have bloody bowel movements overnight. Will trend h/h. GI made aware regarding BRBPR. Will transfuse 1 unit of platelets as bleeding is likely due to thrombocytopenia
[2025-09-01] MEDS: HEPARIN SOD INJ 1000 UNIT/ML VIAL 10 ML 3300 UNIT INDWELLCAT (11:40)
[2025-09-01] MEDS: ASCORBIC ACID 250 MG TABLET 1000 MG PO (13:38)
[2025-09-01] MEDS: GABAPENTIN 300 MG CAPSULE PO (13:39)
[2025-09-01] MEDS: PANTOPRAZOLE 40 MG TABLET PO ×2 (13:39→21:09)
[2025-09-01] MEDS: PROPRANOLOL 10 MG TABLET PO ×2 (13:40→21:09)
[2025-09-01] MEDS: LACTULOSE SYRUP 20 GM/30 ML UDC PO (13:42)
[2025-09-01 16:52] LABS: Basophils # (Auto) 0.0 Thou/mm3 (0.0-0.2); Basophils % (Auto) 1 % (0-2.5); Eosinophils # (Auto) 0.0 Thou/mm3 (0.0-0.5); Eosinophils % (Auto) 3 % (0-10); Hematocrit 23.8 % (36.0-46.0); Immature Granulocytes Auto 0.01 Thou/mm3 (0.00-0.00); Lymphocytes # (Auto) 0.2 Thou/mm3 (1.0-4.8); Lymphocytes % (Auto) 16 % (10-50); Mean Corpuscular HGB Conc 31.1 g/dl (31.0-37.0); Mean Corpuscular Hemoglobin 30.3 pg (25.0-35.0); Mean Corpuscular Volume 98 fL (80-100); Monocytes # (Auto) 0.2 Thou/mm3 (0.0-0.8); Monocytes % (Auto) 17 % (0-12); Neutrophils # (Auto) 0.9 Thou/mm3 (1.8-7.7); Neutrophils % (Auto) 63 % (37-80); Nucleated Red Blood Cell # 0.00 Thou/mm3 (0.00-0.00); Nucleated Red Blood Cell % 0 /100 WBC (0); RDW Standard Deviation 57.4 fL (36.4-46.3); Red Blood Count 2.44 Miln/mm3 (4.00-5.20)
[2025-09-01 17:09] LABS: Hemoglobin 7.4 g/dL (12.0-16.0); Platelet Count 12 Thou/mm3 (140-440); White Blood Count 1.4 Thou/mm3 (3.6-11.0)
[2025-09-01 17:51] LABS: Slide Review Platelets confirmed
--- NOTE | 2025-09-01 19:58 | ESPR_ITS ---
Documentation for date of: 09/01/25 Subjective Subjective Interval history: Patient continues to have hematochezia Hemoglobin hematocrit reasonably staying stable in the 7.5 range The very problem is the low platelet count at 12,000 My suggestion will be to correct the platelet count and I think the bleeding will stop But I will also attempt flexible sigmoidoscopy tomorrow with banding of the internal hemorrhoids Exam Vital Signs Temp Pulse Resp BP Pulse Ox O2 Del Method O2 Flow Rate 98.3 F 74 18 160/70 H 98 Nasal Cannula 1 09/01/25 18:45 09/01/25 18:45 09/01/25 18:45 09/01/25 18:45 09/01/25 18:45 09/01/25 16:00 09/01/25 18:45 Objective Labs 09/01/25 16:25 09/01/25 05:20 Labs: Laboratory Results - last 24 hr 08/31/25 09/01/25 09/01/25 17:20 03:30 05:20 WBC 2.0 L RBC 2.44 L Hgb 7.6 L Hct 23.7 L MCV 97 MCH 31.1 MCHC 32.1 RDW Std Deviation 56.8 H Plt Count 13 L* Neut % (Auto) 68 Lymph % (Auto) 15 [place] % (Auto) 15 H Eos % (Auto) 2 Baso % (Auto) 1 Neut # (Auto) 1.4 L Lymph # (Auto) 0.3 L [place] # (Auto) 0.3 Eos # (Auto) 0.0 Baso # (Auto) 0.0 Immature Gran # (Auto) 0.01 H Absolute Nucleated RBC 0.00 Immature Gran % 1 H Nucleated RBC % 0 PT 15.1 H INR 1.5 H Sodium 137 Potassium 4.2 Chloride 99 Carbon Dioxide 27.6 Anion Gap 10 BUN 34 H Creatinine 6.7 H* D Estim Creat Clear Calc 13.2 L eGFR 7 L* BUN/Creatinine Ratio 5 L Glucose 202 H D Calculated Osmolality 287 Calcium 8.5 Corrected Calcium 9.3 Phosphorus 4.2 Magnesium 1.9 Total Bilirubin 1.4 H AST 25 ALT < 7 L Alkaline Phosphatase 46 Total Protein 6.7 Albumin 3.0 L Globulin 3.7 H Albumin/Globulin Ratio 0.8 L Ur Collection Type Catheter Urine Color [place] A Urine Clarity Turbid A Urine pH 5.0 Ur Specific [place] 1.021 Urine Protein 1+ A Urine Glucose (UA) Negative Urine Ketones Negative Urine Blood 3+ A Urine Nitrite Negative Urine Bilirubin Negative Urine Urobilinogen (Auto) Negative Ur Leukocyte Esterase Positive Urine RBC 1842 H Urine WBC 277 H Ur Squamous Epith Cells 32 H Urine Bacteria 3+ A Urine Yeast (Budding) Present A Misc Test Result Platelets confirmed Blood Type A Negative Antibody Screen NEGATIVE Blood Bank Wristband ID Yes Blood Bank Comment PLATP Ready 09/01/25 16:25 WBC 1.4 L* RBC 2.44 L Hgb 7.4 L Hct 23.8 L MCV 98 MCH 30.3 MCHC 31.1 RDW Std Deviation 57.4 H Plt Count 12 L* Neut % (Auto) 63 Lymph % (Auto) 16 [place] % (Auto) 17 H Eos % (Auto) 3 Baso % (Auto) 1 Neut # (Auto) 0.9 L Lymph # (Auto) 0.2 L [place] # (Auto) 0.2 Eos # (Auto) 0.0 Baso # (Auto) 0.0 Immature Gran # (Auto) 0.01 H Absolute Nucleated RBC 0.00 Immature Gran % 1 H Nucleated RBC % 0 PT INR Sodium Potassium Chloride Carbon Dioxide Anion Gap BUN Creatinine Estim Creat Clear Calc eGFR BUN/Creatinine Ratio Glucose Calculated Osmolality Calcium Corrected Calcium Phosphorus Magnesium Total Bilirubin AST ALT Alkaline Phosphatase Total Protein Albumin Globulin Albumin/Globulin Ratio Ur Collection Type Urine Color Urine Clarity Urine pH Ur Specific [place] Urine Protein Urine Glucose (UA) Urine Ketones Urine Blood Urine Nitrite Urine Bilirubin Urine Urobilinogen (Auto) Ur Leukocyte Esterase Urine RBC Urine WBC Ur Squamous Epith Cells Urine Bacteria Urine Yeast (Budding) Misc Test Result Platelets confirmed Blood Type Antibody Screen Blood Bank Wristband ID Blood Bank Comment Impressions Impression: Rectal bleeding Schedule flexible sigmoidoscopy for banding of the internal hemorrhoids Thrombocytopenia Once the platelet count improves the bleeding per rectum should improve ABG Interpretation ABG results: 08/20/25 09:18 VBG pH 7.38 VBG pCO2 29 L VBG pO2 72 H VBG Base Excess -8 L Assessment & Plan A&P Narrative # Hemoccult positive stool with drop in hemoglobin hematocrit requiring blood transfusion on a weekly basis Plan N.p.o. midnight tonight except p.o. meds Consent obtained in the dialysis room for fiberoptic esophagogastroduodenoscopy with possible biopsy possible therapeutic intervention under intravenous moderate sedation scheduled for tomorrow morning Depending on the results of the upper endoscopy patient may need a colonoscopy prior to discharge and as there is no record of colonoscopy on board although she claims she had a colonoscopy in the last 2 [address] 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
[2025-09-01] MEDS: ATORVASTATIN CALCIUM 10 MG TABLET PO (21:09)
[2025-09-02] VITALS (25 sets, daily range): BP systolic 98–138; BP diastolic 37–69; PULSE 60–90; RESP 15–98; TEMP 36.1–37; O2SAT 91–100; BMI 59.4
[2025-09-02 05:54] LABS: Basophils # (Auto) 0.0 Thou/mm3 (0.0-0.2); Basophils % (Auto) 1 % (0-2.5); Eosinophils # (Auto) 0.1 Thou/mm3 (0.0-0.5); Eosinophils % (Auto) 4 % (0-10); Hematocrit 22.4 % (36.0-46.0); Immature Granulocytes Auto 0.00 Thou/mm3 (0.00-0.00); Lymphocytes # (Auto) 0.2 Thou/mm3 (1.0-4.8); Lymphocytes % (Auto) 18 % (10-50); Mean Corpuscular HGB Conc 32.1 g/dl (31.0-37.0); Mean Corpuscular Hemoglobin 31.6 pg (25.0-35.0); Mean Corpuscular Volume 98 fL (80-100); Monocytes # (Auto) 0.3 Thou/mm3 (0.0-0.8); Monocytes % (Auto) 20 % (0-12); Neutrophils # (Auto) 0.8 Thou/mm3 (1.8-7.7); Neutrophils % (Auto) 58 % (37-80); Nucleated Red Blood Cell # 0.00 Thou/mm3 (0.00-0.00); Nucleated Red Blood Cell % 0 /100 WBC (0); RDW Standard Deviation 57.0 fL (36.4-46.3); Red Blood Count 2.28 Miln/mm3 (4.00-5.20)
[2025-09-02 06:01] LABS: Hemoglobin 7.2 g/dL (12.0-16.0); Platelet Count 14 Thou/mm3 (140-440); White Blood Count 1.3 Thou/mm3 (3.6-11.0)
[2025-09-02 06:21] LABS: Slide Review Platelets confirmed
[2025-09-02 06:35] LABS: Alanine Aminotransferase < 7 U/L (10-49); Albumin, Serum 2.8 gm/dL (3.5-5.0); Albumin/Globulin Ratio 0.8 (1.2-2.2); Alkaline Phosphatase 44 U/L (46-116); Anion Gap 9 (7-16); Aspartate Amino Transferase 28 U/L (0-34); Bilirubin,Total 1.5 mg/dL (0.3-1.2); Blood Urea Nitrogen 28 mg/dL (9-23); Calcium 8.3 mg/dL (8.3-10.6); Calcium (Corrected) 9.3 mg/dL (8.5-10.1); Carbon Dioxide 30.7 mMol/L (20.0-31.0); Chloride 100 mMol/L (98-107); Globulin 3.6 gm/dL (2.3-3.5); Glucose 142 mg/dL (74-106); Magnesium 1.9 mg/dL (1.6-2.6); Osmolality,Calculated 286 (275-295); Phosphorous 3.8 mg/dL (2.4-5.1); Potassium 4.0 mMol/L (3.4-5.1); Sodium 140 mMol/L (136-145); Total Protein 6.4 gm/dL (5.7-8.2)
[2025-09-02 06:56] LABS: BUN/Creatinine Ratio 5 Ratio (12-20); Creatinine (Component) 5.5 mg/dL (0.6-1.3); Estimated Creatinine Clearance 15.9 mL/min (>60); eGFR 9 See Note
--- NOTE | 2025-09-02 07:43 | CHAP ---
Responded to a Rapid Response (07:43). Patient was gone from the room. No family was present.
--- NOTE | 2025-09-02 07:43 | PC.NURSE ---
Pt slow to respond, Not as alert, unable to give her name, where she is or the date. Rapid Response called by MD and Code Stroke called.
--- NOTE | 2025-09-02 07:43 | PC.NURSE ---
[employer] called. Pt. less responsive, slow to answer, Knows her name, responds slowly to , knows she is in the hospital. Code Stroke called. [employer] team arrived.
--- NOTE | 2025-09-02 07:45 | PC.NURSE ---
Blood sugar 120. BP 131/42, pulse 64, Respirations 18, o2sat 100% on 1 liter.
--- NOTE | 2025-09-02 07:45 | PC.NURSE ---
BS- 120, Neuro cart obtained, New orders.
--- NOTE | 2025-09-02 07:45 | XR_ITS ---
Examination: CT brain head without contrast. 2-D sagittal coronal reconstructions Date and time of exam: September 02, 2025, 0805 hours, comparison May 08, 2025 INDICATIONS: Stroke alert, onset focal neurologic deficit today CTDI: vol (mGy): 61 DLP: (mGycm): 1284 Technique: Multiple CT axial sections of the brain have been obtained, 5 mm slice thickness. Contrast has not been administered. 2-D sagittal, coronal reconstructions have been obtained Low dose protocols were performed. One or more of the following dose reduction techniques were used; automated exposure control, adjustment of the mA and/or KV according to patient size, use of iterative reconstruction technique. Findings: No significant ventricular enlargement. Intra-axial or extra-axial hemorrhage density is not seen. No mass effect or midline shift Basal cisterns are not remarkable. Fourth ventricle is midline. Cranial vault intact. Impression: Negative for acute hemorrhage, mass effect or midline shift
--- NOTE | 2025-09-02 07:50 | PC.NURSE ---
Pt taken to CT scan via bed to R/O stroke.
--- NOTE | 2025-09-02 07:50 | PC.NURSE ---
Taken to CT scan, via bed.
--- NOTE | 2025-09-02 08:42 | PD.TNEURO ---
Tele Neuro Consultation Consultation Date 09/02/25 Most Recent Vital Signs Last Vital Signs Temp 97.6 F 09/02/25 04:00 Pulse 61 09/02/25 04:00 Resp 18 09/02/25 04:00 BP 138/60 H 09/02/25 04:00 Pulse Ox 99 09/02/25 04:00 O2 Del Method Nasal Cannula 09/02/25 04:00 O2 Flow Rate 1 09/02/25 04:00 Laboratory-Coagulation Panel PT 15.1 Seconds (9.0-12.2) H 09/01/25 05:20 INR 1.5 (0.9-1.3) H 09/01/25 05:20 APTT 32.2 Seconds (22.0-36.0) 08/22/25 05:35 Fibrinogen 256 mg/dL (175-375) 08/31/25 14:18 Consultation Narrative [facility] Tele[facility]rology Consult [facility] Patient Name:???Sharonda Hopper Date of :???1970 Identification Number:??? Date of Service:???09/02/2025 07:51:44 Diagnosis:?G93.41 - Encephalopathy Metabolic Impression: ?55yo F with a history of advanced CKD now progressed to ESRD, ESLD, severe thrombocytopenia with active GI and bleeding, now with AMS. Exam most consistent with a toxic/metabolic encephalopathy. CT head negative. Not an interventional candidate as LKW > 4.5 hours ago, active GI/ bleeding, thrombocytopenia, and poor baseline functional status. Our recommendations are outlined below. Recommendations: ? Stroke/Telemetry Floor ? Neuro Checks (Q4) ? Bedside Swallow Eval ? DVT Prophylaxis ? IV Fluids, Normal Saline ? Head of Bed 30 Degrees ? Euglycemia and Avoid Hyperthermia (PRN Acetaminophen) ?Hold [place], Gabapentin. ?Ammonia level pending. ?If no improvement in mentation with holding meds, correction of metabolic derangements, and dialysis treatment then recommend a routine brain MRI without contrast. Sign Out: ? Discussed with Rapid Response Team Advanced Imaging:Advanced Imaging Deferred because: Stroke not suspected with clinical presentation and exam Metrics: Last Known Well: 09/01/2025 13:00:00 Activation Time: 09/02/2025 07:51:44 Initial Response Time: 09/02/2025 07:52:37Symptoms: AMS. Initial patient interaction: 09/02/2025 08:08:14 NIHSS Assessment Completed: 09/02/2025 08:17:37Patient is not a candidate for Thrombolytic. Thrombolytic Medical Decision: 09/02/2025 08:17:38Patient was not deemed candidate for Thrombolytic because of following reasons: LKW outside 4.5 hr window. . Recent gastrointestinal or urinary tract hemorrhage (within previous 21 days) . Low Platelet count <100 000/mm3 . CT Head: I personally reviewed all the CT images that were available to me and it showed: no acute changes. Primary Provider Notified of Diagnostic Impression and Management Plan on: 09/02/2025 08:25:23 Spoke With: Dr. Ta Able to Reach 09/02/2025 08:25:23 History of Present Illness:Patient is a 55 year old Female. Inpatient stroke alert was called for symptoms of AMS. 55yo F with a history of advanced CKD now progressed to ESRD, ESLD, severe thrombocytopenia with active GI and bleeding, now with AMS. LKW 1300 yesterday per bedside staff. Patient had been A&Ox3, fully conversant up until yesterday afternoon. 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 She last received [place] yesterday morning. No reported seizure activity or significant change in vitals overnight. Per staff, patient refusing lactulose but having frequent bloody bowel movements. ? Past Medical History: ?Hypertension ?Diabetes Mellitus ?Hyperlipidemia ?There is no history of Stroke ?There is no history of Seizures Medications: No Anticoagulant use? No Antiplatelet use Reviewed EMR for current medications Allergies:? Reviewed Social History: Drug Use: No Family History: There is no family history of premature cerebrovascular disease pertinent to this consultation ROS : 14 Points Review of Systems was performed and was negative except mentioned in HPI. Past Surgical History: There Is No Surgical History Contributory To Today?s Visit ? Examination: BP(131/42),?Pulse(64),?Blood Glucose(120) 1A: Level of Consciousness - Arouses to minor stimulation?+ 1 1B: Ask Month and Age - Could Not Answer Either Question Correctly?+ 2 1C: Blink Eyes & Squeeze Hands - Performs Both Tasks?+ 0 2: Test Horizontal Extraocular Movements - Normal?+ 0 3: Test Visual Martinez - No Visual Loss?+ 0 4: Test Facial Palsy (Use Grimace if Obtunded) - Normal symmetry?+ 0 5A: Test Left Arm Motor Drift - No Drift for 10 Seconds?+ 0 5B: Test Right Arm Motor Drift - No Drift for 10 Seconds?+ 0 6A: Test Left Leg Motor Drift - Drift, but doesn't hit bed?+ 1 6B: Test Right Leg Motor Drift - Drift, but doesn't hit bed?+ 1 7: Test Limb Ataxia (FNF/Heel-Sheppard) - No Ataxia?+ 0 8: Test Sensation - Normal; No sensory loss?+ 0 9: Test Language/Aphasia - Normal; No aphasia?+ 0 10: Test Dysarthria - Normal?+ 0 11: Test Extinction/Inattention - No abnormality?+ 0 NIHSS Score:?5 NIHSS Free Text :?Able to repeat and follow several simple commands, perseverative speech; intermittent myoclonus in all 4 extremities Pre-Morbid Modified Era Scale: 3 Points = Moderate disability; requiring some help, but able to walk without assistance Spoke with :?Dr. Uto This consult was conducted in real time using interactive audio and video technology. Patient was informed of the technology being used for this visit and agreed to proceed. Patient located in hospital and provider located at home/office setting. Patient is being evaluated for possible acute neurologic impairment and high probability of imminent or life-threatening deterioration. I spent total of 35 minutes providing care to this patient, including time for face to face visit via telemedicine, review of medical records, imaging studies and discussion of findings with providers, the patient and/or family. Dr Suhas Ramirez [facility] For Inpatient follow-up with [facility] physician please call [facility] at . As we are not an outpatient service for any post hospital discharge needs please contact the hospital for assistance. If you have any questions for the [facility] physicians or need to reconsult for clinical or diagnostic changes please contact us via [facility] at . Non-radiologist review of imaging performed to assist with emergent clinical decision-making. Remote physician workstations do not possess the same resolution, calibration, or diagnostic capabilities as hospital-based radiology reading stations, and formal radiologist read is necessary. Signature :Stacye Ramirez
--- NOTE | 2025-09-02 09:00 | PC.SS ---
follow up note: SS spoke to Marsha @ [facility] and they can no longer accept patient due to Bipap PRN. SS updated patient's son who is agreeable for patient to [facility]. Auth already provided. Patient's d/c was held for further work up due to blood in stool. Angela, RN @ [facility] called late yesterday and will need an update on patient's tentative d/c date.
[2025-09-02] MEDS: ASCORBIC ACID 250 MG TABLET 1000 MG PO (10:12)
[2025-09-02] MEDS: PROPRANOLOL 10 MG TABLET PO ×2 (10:13→20:45)
[2025-09-02] MEDS: PANTOPRAZOLE 40 MG TABLET PO ×2 (10:14→20:45)
--- NOTE | 2025-09-02 10:42 | PC.NURSE ---
pt having multifocal PVC's and bigeminey. Denies any symptoms. notified. States cardiology on board and aware. Not concerned at this time.
[2025-09-02 11:21] LABS: Ammonia 91 uMol/L (11-32)
[2025-09-02] MEDS: LACTULOSE SYRUP 20 GM/30 ML UDC PO ×2 (13:22→21:17)
--- NOTE | 2025-09-02 14:17 | ESPR_ITS ---
<Statement entered by Willis Ta MD - 09/02/25 17:08> Overnight patient had 4 episodes of bright red blood per rectum. In a.m. upon evaluation patient had change in mentation as she was not able to follow commands and answer questions appropriately. Given that she has had multiple sources of bleeding, there were concerns for intracranial bleed and rapid response/tripler was called. CT head was obtained and was negative for acute hemorrhage. Teleneurology recommended to hold gabapentin, [place], and Benadryl, in addition to any other psychoactive medications as primary suspicion for metabolic etiology. Recheck of ammonia came back at 99 with prior value of 138. Patient has been refusing lactulose but will start rifaximin. Touch base with hematology, recommending to continue with vitamins and cryoprecipitate. Ordered 2 additional units of platelets to be transfused today. GI aware of condition and plan for flexible sigmoidoscopy today. ----- Note reviewed and agree with care plan as documented. Please refer to the note below for further details. Plan discussed with attending physician Dr. Mackenzie Ta MD PGY-2 Internal Medicine Documentation for date of: 09/02/25 Subjective Subjective Interval history: Overnight, the patient experienced 4 additional episodes of hematochezia. Today, the patient was examined at bedside and found to have altered mental status. Per RN patient has been refusing lactulose, which might be affecting the patient mentation.The patient was alert and oriented to person only (x1) and exhibited word-finding aphasia, difficulty following commands, and myoclonic jerking. A stroke protocol was initiated, and the NIHSS score was 5. Teleneurology was consulted and recommended stopping sedating medications. Held [place], gabapentin, and Benadryl. The head CT was negative for acute hemorrhage. A recheck of the ammonia level was 99, down from a prior value of 138. The patient's vitals remained stable, and oxygen saturation was maintained well on 2L via nasal cannula. Labs were reviewed and showed worsening leukopenia with a WBC of 1.3, a downtrending hemoglobin and hematocrit, and continued low platelet count despite four units of platelet pheresis and three pulls of cryoprecipitate. The pancytopenia is attributed to consumption coagulopathy and ESRD/ESLD. Given the patient's coagulation panel, DIC versus ITP is suspected. GI is aware of the patient's condition and has planned for a flexible sigmoidoscopy today. Exam Vital Signs Temp Pulse Resp BP Pulse Ox O2 Del Method O2 Flow Rate 98.0 F 66 20 118/37 L 98 Nasal Cannula 1 09/02/25 12:21 09/02/25 12:21 09/02/25 12:21 09/02/25 12:21 09/02/25 12:21 09/02/25 12:00 09/02/25 12:21 Narrative Exam Narrative Exam General:A&Ox1 (fluctuating mentation), difficulty following commands, myoclonic jerking UE>LE,obese Eye: PERRL, EOMI, normal conjunctiva, no scleral icterus HENT: Normocephalic, atraumatic, normal hearing, moist oral mucosa. Ample anterior soft tissue, large neck circumference Neck: Supple, non-tender, no JVD, no lymphadenopathy, tunneled hd cath in the R chest, catheter site is ecchymotic Lungs: Clear to auscultation, bilateral air entry, no wheezing or rales. Heart: Normal S1 and S2, no S3 or S4 appreciated. Normal rate and regular rhythm, no murmurs, rubs gallops. Abdomen: Soft, non-tender, non-distended, normal bowel sounds. No guarding or rebound tenderness. Musculoskeletal: Normal range of motion and strength, no tenderness or swelling Skin: Skin is warm, dry, no rashes or lesions. 3+ pitting edema of bilateral LE at the ankles and feet up to the mid shins Neurologic: Alert, awake and oriented x1. CN II-XII grossly intact. No focal neuro deficits. No signs of meningeal irritation noted. Psychiatric: Cooperative, appropriate mood and affect Objective Labs 09/03/25 06:16 09/03/25 06:16 Labs: Laboratory Results - last 24 hr 08/31/25 09/01/25 09/02/25 17:20 16:25 05:05 WBC 1.4 L* 1.3 L* RBC 2.44 L 2.28 L Hgb 7.4 L 7.2 L Hct 23.8 L 22.4 L MCV 98 98 MCH 30.3 31.6 MCHC 31.1 32.1 RDW Std Deviation 57.4 H 57.0 H Plt Count 12 L* 14 L* Neut % (Auto) 63 58 Lymph % (Auto) 16 18 [place] % (Auto) 17 H 20 H Eos % (Auto) 3 4 Baso % (Auto) 1 1 Neut # (Auto) 0.9 L 0.8 L Lymph # (Auto) 0.2 L 0.2 L [place] # (Auto) 0.2 0.3 Eos # (Auto) 0.0 0.1 Baso # (Auto) 0.0 0.0 Immature Gran # (Auto) 0.01 H 0.00 Absolute Nucleated RBC 0.00 0.00 Immature Gran % 1 H 0 Nucleated RBC % 0 0 Sodium 140 Potassium 4.0 Chloride 100 Carbon Dioxide 30.7 Anion Gap 9 BUN 28 H Creatinine 5.5 H* D Estim Creat Clear Calc 15.9 L eGFR 9 L* BUN/Creatinine Ratio 5 L Glucose 142 H D Calculated Osmolality 286 Calcium 8.3 Corrected Calcium 9.3 Phosphorus 3.8 Magnesium 1.9 Total Bilirubin 1.5 H AST 28 ALT < 7 L Alkaline Phosphatase 44 L Ammonia Total Protein 6.4 Albumin 2.8 L Globulin 3.6 H Albumin/Globulin Ratio 0.8 L Misc Test Result Platelets confirmed Platelets confirmed Blood Type A Negative Antibody Screen NEGATIVE Blood Bank Wristband ID Yes Blood Bank Comment PLATP Ready 09/02/25 10:25 WBC RBC Hgb Hct MCV MCH MCHC RDW Std Deviation Plt Count Neut % (Auto) Lymph % (Auto) [place] % (Auto) Eos % (Auto) Baso % (Auto) Neut # (Auto) Lymph # (Auto) [place] # (Auto) Eos # (Auto) Baso # (Auto) Immature Gran # (Auto) Absolute Nucleated RBC Immature Gran % Nucleated RBC % Sodium Potassium Chloride Carbon Dioxide Anion Gap BUN Creatinine Estim Creat Clear Calc eGFR BUN/Creatinine Ratio Glucose Calculated Osmolality Calcium Corrected Calcium Phosphorus Magnesium Total Bilirubin AST ALT Alkaline Phosphatase Ammonia 91 H* Total Protein Albumin Globulin Albumin/Globulin Ratio Misc Test Result Blood Type Antibody Screen Blood Bank Wristband ID Blood Bank Comment ABG Interpretation ABG results: 08/20/25 09:18 VBG pH 7.38 VBG pCO2 29 L VBG pO2 72 H VBG Base Excess -8 L Quality Measures Quality Measures VTE prophylaxis Assessment & Plan Assessment Current Active Medications: Generic Name Dose Route Start Last Admin Trade Name Freq PRN Reason Stop Dose Admin Hydrocodone Bitart/Acetaminophen 1 tab 08/31/25 13:44 09/01/25 04:28 Hydrocodone/Apap 10/325 Tab PO 09/05/25 13:43 1 tab On Hold: 09/02/25 08:28 Q6HR PRN Administration back pain Amlodipine Besylate 10 mg 08/23/25 09:00 09/02/25 10:14 Amlodipine Besylate 5 Mg Tablet PO 09/22/25 08:59 10 mg QDAY SHERYL Administration Ascorbic Acid 1,000 mg 09/01/25 09:00 09/02/25 10:12 Ascorbic Acid 250 Mg Tablet PO 10/01/25 08:59 1,000 mg DAILY SHERYL Administration Atorvastatin Calcium 10 mg 08/21/25 21:00 09/01/25 21:09 Atorvastatin Calcium 10 Mg Tablet PO 09/20/25 20:59 10 mg HS SHERYL Administration Dextrose 25 ml 08/20/25 10:14 Dextrose 50%-Water Inj 50 Ml Syringe IV 09/19/25 10:13 Q15MIN PRN BG 50-70 responsive npo pt Dextrose 50 ml 08/20/25 10:14 Dextrose 50%-Water Inj 50 Ml Syringe IV 09/19/25 10:13 Q15MIN PRN BG <50 OR BG <70 & pt unresponsive Diphenhydramine HCl 25 mg 08/31/25 08:07 08/31/25 18:02 Diphenhydramine 25 Mg Capsule PO 09/30/25 08:06 25 mg On Hold: 09/02/25 08:35 Q6HR PRN Administration ITCHING Gabapentin 300 mg 08/31/25 09:00 09/01/25 13:39 Gabapentin 300 Mg Capsule PO 09/30/25 08:59 300 mg On Hold: 09/02/25 08:27 QDAY SHERYL Administration Glucagon 1 mg 08/20/25 10:14 Glucagon Inj 1 Mg Vial IM Q15MIN PRN BG <70, and no IV access Heparin Sodium (Porcine) 3,300 unit 08/25/25 11:40 08/29/25 15:22 Heparin Sod Inj 1000 Unit/Ml Vial 10 Ml INDWELLCAT 09/05/25 12:43 3,300 unit On Hold: 08/31/25 14:50 PRN PRN Administration DIALYSIS Albumin Human 25 gm in 100 mls @ 100 mls/hr 08/27/25 07:42 08/30/25 10:03 Albuminex 25% Ivpb IV 100 mls/hr Q30MIN PRN Administration DIALYSIS Insulin Degludec 20 unit 09/02/25 21:00 Insulin Degludec 5 Unit/0.05 Ml (Per 5 Units) SC 10/02/25 20:59 HS SHERYL Insulin Human Lispro 0 unit 08/29/25 21:15 09/02/25 12:29 Insulin Lispro (Admelog) 1 Unit/0.01 Ml Unit SC 09/28/25 21:14 Not Given ACHS SHERYL Protocol Lactulose 20 gm 08/20/25 22:00 09/02/25 13:22 Lactulose Syrup 20 Gm/30 Ml Udc PO 09/19/25 21:59 20 gm TID SHERYL Administration Protocol Ondansetron HCl 4 mg 08/20/25 10:08 Ondansetron Inj 2 Mg/Ml Inj 2 Ml IVP 09/19/25 10:07 Q6H PRN NAUSEA OR VOMITING Protocol Pantoprazole Sodium 40 mg 09/01/25 09:15 09/02/25 10:14 Pantoprazole 40 Mg Tablet PO 10/01/25 09:14 40 mg BID SHERYL Administration Propranolol HCl 10 mg 08/20/25 21:00 09/02/25 10:13 Propranolol 10 Mg Tablet PO 09/19/25 20:59 10 mg BID SHERYL Administration Rifaximin 550 mg 09/02/25 12:30 09/02/25 13:22 Rifaximin 550 Mg Tablet PO 09/09/25 12:29 550 mg BID SHERYL Administration Sevelamer Carbonate 800 mg 08/23/25 12:00 09/02/25 12:29 Sevelamer Carbonate 800 Mg Tablet PO 09/22/25 11:59 Not Given TIDWM SHERYL Plan Ms Hopper is a 55 year old woman with a hx significant for advanced CKD that has now progressed to ESRD, HFpEF 55-60 12/2024, HLD, HTN, who presented with malaise and shortness of breath, found to be significantly volume overloaded, with elevated BUN and Cr, Nephrology consulted, Dr Neil. started on dialysis, s/p tunneled cath placement. pt pending authorization for snf, pt recommended. #Metabolic encephalopathy Patient mentation was altered this morning associated with word-finding aphasia, difficulty following commands, and myoclonic jerking. She reported pulm initiated. CT was done and was negative for acute hemorrhage. HELD medication that affects mentation: [place], gabapentin and Benadryl. Recheck ammonia is 91, prior 08/20 was 138. Given patient's history of ESRD and ESLD and negative consult due to metabolic derangement. Plan - Continue to monitor mentation fluctuation - Started rifaximin 550 mg p.o. twice daily - Continue lactulose 20 mg p.o. 3 times daily - Holding Benadryl, [place], gabapentin( 09/02) #?DIC vs ITP #Anemia #Leukopenia(worsening) #Thrombocytopenia #Pancytopenia Patient has signs of end-stage liver disease as all cell lines are low, abnormal coag panel, low albumin, elevated T. bili. Etiology of pancytopenia may be related to ESLD in addition to ESRD. However, may be underlying hematological disorder and will consult hematology. 08/31 Plts 17-> transfuse 1 unit Pheresesis and 15 unit cryoprecipitate( so far pt received 11) 09/01: pls 13-> transfuse 1 unit Pheresesis 09/02 plt 14->14: transfuse 1 unit Pheresesis, 1 pending. Completed cryoprecipitate DDX: DIC vs ITP vs TTP Given the patient?s lab values, including thrombocytopenia (platelets <30), prolonged PT and aPTT, and evidence of active bleeding (hematochezia and hematuria), there is concern for DIC. Despite a normal fibrinogen level, which typically suggests that DIC is less likely, the patient's multiple organ dysfunction, particularly with liver and renal involvement, may be impairing the production and clearance of coagulation factors.The patient has been receiving appropriate transfusion support, including PRBCs, platelets, and cryoprecipitate, to address coagulation factor consumption. However, despite these interventions, the patient's CMP and CMP remains abnormal. Additionally, while there is suspicion for thrombotic thrombocytopenic purpura due to altered mental status and progressive renal failure, prior peripheral smear results were normal, which makes this diagnosis less likely. - 05/08/2015 peripheral blood smear showed severe thrombocytopenia and leukopenia with no morphologic abnormalities, moderate normocytic anemia without hemolysis Plan - Started Neutropenic precautions - Peripheral blood smear ordered, pending - Hematology Dr. Ortiz consulted, appreciate recommendations-transfuse platelet and cryoprecipitate as needed - Continue home Vitamin C 1000mg daily - Close monitoring of platelet counts, coagulation parameters, and renal function consideration for further diagnostic testing may be warranted if the clinical picture continues to evolve #Acute posthemorrhagic anemia #New onset hematochezia and hematuria #GI bleed #Grade II internal hemorrhoids #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 Concern for upper GI bleed due to low hemoglobin and hematocrit and hx of esophageal varices..Patient received 6 blood transfusions with HD s/p 5U pRBC, 2U plt. FOBT + Last EGD 12/[address] Ny: gastritis, gastric varices, banding not attempted given low PLT, grade 1 esophageal varices that were too small to band. EGD 08/26: Esophagitis, gastritis w/ hemorrhage (characterized by congestion/edema). No bx taken s/p Ceftriaxone1 gm qd (08/26- 08/27) for SBP ppx, Octreotide 50 mcg/hr (08/26- 08/27) Colonoscopy 08/29: Show internal hemorrhoids grade 1- GI reccomend repeat colonoscopy in 5 years for surveillance 08/31: had 2 bowel movement today with bright red blood per rectum with clots, hematuria, GI informed. Will f/u. The anorectal bleeding might be due to internal hemorrhoids bleeding 09/01: 4 more hematochezia episodes with clots Plan: - GI consulted, appreciate recs-flexible sigmoidoscopy plan for today - Daily CBCs - Transfuse hemoglobin less than 7 - Continue Protonix 40mg IVP BID #Hematuria #Acute Cystitis Acute patient does report urgency to urinate however she has been anuric since admission. She denies dysuria and burning sensation. 08/31-Urinalysis positive for leukocytes esterase, urine RBC 1842, urine WBC 277, hematuria 2+, urine yeast present, no casts noted. Urine color is dark red. Patient is afebrile with WBC 2.0, leukopenia. - Urine culture - >100,000 colonies/ml mixed sidra,possible Plan - Continue to monitor urine output #Hx of Advanced CKD, now with ESRD on HD #Chronic Normocytic Anemia #Severe persistent thrombocytopenia #Severe leukopenia Worsening BUN, Cr, low bicarb, electrolyte abnormalities Completed 3 days of consecutive HD (tolerating well), has tunneled dialysis catheter. HD MWF Conversion of of nontunneled dialysis catheter to tunneled 08/24 Received 3 units of platelet transfusion Dialysis 08/20, 08/22, 08/23, 08/24, 08/25, 08/27, 08/29,08/30, 09/01 - Stopped lasix 40 mg IVP BID Plan: - Nephrology Dr. 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 Plan: - Lactulose 20 TID - CTM chest for increased bruising or signs of hematoma at tunneled hd site. #HFpEF (echo 12/2024 w EF 55-60%) #Type II NSTEMI #Acute CHF exacerbation - resolved Weight on admission 129.27 kg Likely 2/2 ESRD (see above) BNP 200s Trend troponin, till peaked : 0.106-->0.124 --> 0.097- stop trending s/p Lasix (held given low urine output, getting dialysis) Plan: - Cardiology consulted, appreciate recs - Strict I and O - Daily Weights #Type 2 DM, insulin dependent A1c 6.5 Home regimen 35 U long acting BID , 20 U short acting tid with meals, Ozempic SC qweekly Uses freestyle merna Plan: - ISS Step 2 - Degludec 20 #Diabetic Neuropathy Ambulates with a 4 wheel walker Plan: - hold Gabapentin 400 mg PO BID - PT consulted, recommend snf #HTN Plan: - Amlodipine 10 mg PO daily #HLD Plan: - Atorvastatin 10 mg PO DHS #Gout Plan: - hold home Ursodiole mg PO TID i/s/o ESRD (see above) #PHUONG Large neck circumference. patient desats to 70s on NC when sleeping, needs to use cpap at night. Daignosed with PHUONG, never recieved CPAP machine at home Plan: - Discharge with CPAP - CPAP qhs while inpatient #Chronic low back pain Plan: - held [place] 10 mg q6h PRN #Orthostatic tremors Prior ED presntation with tremors, had been evaluated by Dr. Juan. LP 11/2024, recommended outpatient follow up as needed. 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 Plan - wound care consulted, appreciate recs #Hyperkalemia - resolved #Hyperphosphatemia- resolved #Hypermagnesemia- resolved Hospital management: Lines: peripheral IV Diet: renal Bowel: Lactulose 20 TID GI prophylaxis: Pantoprazole 40 mg IV twice daily DVT prophylaxis: SCD given low platelets CODE STATUS: Full code Patient seen and assessed under supervision of attending physician Dr.K Mann and discuss with senior resident Dr. Ed Ta PGY-2 Elyssa Cruz MD PGY-1, Internal Medicine Please note: this document was transcribed using voice recognition technology; minor inaccuracies may be present. Attending Provider Attestation/Addendum I, Maria Fernanda Mann, DO, attest that I was physically present for the blank portions of the service and evaluated the patient with the resident and I reviewed and discussed the case with the resident and agree with the resident's findings and plans of care as documented above Patient seen and eval this a.m. Patient is very confused. She is alert, but very disoriented, unable to state her name, birthdate or location. Stroke alert was called this morning due to more for profound myoclonic jerking in her upper extremities along with the altered mental status and aphasia. CT head was done showing no acute intracranial hemorrhages as that was the main concern due to thrombocytopenia. Case is discussed with dietist, recommends 2 pools of cryoprecipitate. Will also transfuse platelets as patient continued to have 4 large bloody bowel movements at night. No available thrombopoietin agents in this hospital. H&H has otherwise been unchanged. Patient did refuse to take lactulose and ammonia level was noted to be elevated at 91. Per telemetry neuro, suspect metabolic encephalopathy due to gabapentin, [place] and Benadryl. Will also start on rifaximin due to hepatic encephalopathy and elevated ammonia levels. She is scheduled for sigmoidoscopy today in the evening by GI. Patient is otherwise able to follow some simple commands, moving all 4 extremities. Son is at bedside and discussed overall guarded condition due to end-stage liver disease and end-stage renal disease leading to thrombocytopenia and anemia, as well as elevated ammonia levels. All questions and concerns were addressed to patient's son's satisfaction.
[2025-09-02] MEDS: SODIUM CHLORIDE 0.9% 500 ML 500 ML 20 ML IV (17:12)
[2025-09-02 17:15] LABS: Path Review Blood Smear Sent to Pathologist
--- NOTE | 2025-09-02 17:48 | SUR.PHASEI ---
pt received from OR in recovery bay 5. pt awake and alert, breathing unlabored on nc 4l. v/s stable. report received from [facility].
--- NOTE | 2025-09-02 18:25 | SUR.PHASEI ---
pt awake and alert, breathing unlabored on 2l nc. v/s stable. report called to Mohini BONNER. pt will be transferred to room at this time.
[2025-09-02 18:33] LABS: Basophils # (Auto) 0.0 Thou/mm3 (0.0-0.2); Basophils % (Auto) 1 % (0-2.5); Eosinophils # (Auto) 0.0 Thou/mm3 (0.0-0.5); Eosinophils % (Auto) 2 % (0-10); Hematocrit 22.5 % (36.0-46.0); Immature Granulocytes Auto 0.00 Thou/mm3 (0.00-0.00); Lymphocytes # (Auto) 0.3 Thou/mm3 (1.0-4.8); Lymphocytes % (Auto) 20 % (10-50); Mean Corpuscular HGB Conc 31.6 g/dl (31.0-37.0); Mean Corpuscular Hemoglobin 31.0 pg (25.0-35.0); Mean Corpuscular Volume 98 fL (80-100); Monocytes # (Auto) 0.2 Thou/mm3 (0.0-0.8); Monocytes % (Auto) 17 % (0-12); Neutrophils # (Auto) 0.7 Thou/mm3 (1.8-7.7); Neutrophils % (Auto) 60 % (37-80); Nucleated Red Blood Cell # 0.00 Thou/mm3 (0.00-0.00); Nucleated Red Blood Cell % 0 /100 WBC (0); RDW Standard Deviation 58.5 fL (36.4-46.3); Red Blood Count 2.29 Miln/mm3 (4.00-5.20)
[2025-09-02 18:36] LABS: Hemoglobin 7.1 g/dL (12.0-16.0)
[2025-09-02 18:37] LABS: Platelet Count 13 Thou/mm3 (140-440); Slide Review Platelets confirmed; White Blood Count 1.2 Thou/mm3 (3.6-11.0)
[2025-09-02] MEDS: INSULIN DEGLUDEC 5 UNIT/0.05 ML (PER 5 UNITS) 20 UNIT SC (20:44)
[2025-09-02] MEDS: INSULIN LISPRO (AdmeLOG) 1 UNIT/0.01 ML UNIT SC (20:44)
[2025-09-02] MEDS: ATORVASTATIN CALCIUM 10 MG TABLET PO (20:45)
[2025-09-02 21:58] LABS: Basophils # (Auto) 0.0 Thou/mm3 (0.0-0.2); Basophils % (Auto) 1 % (0-2.5); Eosinophils # (Auto) 0.0 Thou/mm3 (0.0-0.5); Eosinophils % (Auto) 2 % (0-10); Hematocrit 20.6 % (36.0-46.0); Immature Granulocytes Auto 0.01 Thou/mm3 (0.00-0.00); Lymphocytes # (Auto) 0.3 Thou/mm3 (1.0-4.8); Lymphocytes % (Auto) 18 % (10-50); Mean Corpuscular HGB Conc 31.6 g/dl (31.0-37.0); Mean Corpuscular Hemoglobin 31.9 pg (25.0-35.0); Mean Corpuscular Volume 101 fL (80-100); Monocytes # (Auto) 0.2 Thou/mm3 (0.0-0.8); Monocytes % (Auto) 12 % (0-12); Neutrophils # (Auto) 0.9 Thou/mm3 (1.8-7.7); Neutrophils % (Auto) 66 % (37-80); Nucleated Red Blood Cell # 0.00 Thou/mm3 (0.00-0.00); Nucleated Red Blood Cell % 0 /100 WBC (0); RDW Standard Deviation 60.0 fL (36.4-46.3); Red Blood Count 2.04 Miln/mm3 (4.00-5.20)
[2025-09-02 22:07] LABS: White Blood Count 1.4 Thou/mm3 (3.6-11.0)
[2025-09-02 22:19] LABS: Hemoglobin 6.5 g/dL (12.0-16.0); Platelet Count 14 Thou/mm3 (140-440)
[2025-09-02 22:20] LABS: Slide Review Platelets confirmed
[2025-09-03] VITALS (44 sets, daily range): BP systolic 96–147; BP diastolic 39–67; PULSE 60–75; RESP 15–22; TEMP 36.4–37.6; O2SAT 97–100; BMI 60.8
[2025-09-03] MEDS: LACTULOSE SYRUP 20 GM/30 ML UDC PO ×2 (05:32→21:34)
[2025-09-03 07:02] LABS: Basophils # (Auto) 0.0 Thou/mm3 (0.0-0.2); Basophils % (Auto) 0 % (0-2.5); Eosinophils # (Auto) 0.0 Thou/mm3 (0.0-0.5); Eosinophils % (Auto) 3 % (0-10); Hematocrit 21.9 % (36.0-46.0); Immature Granulocytes Auto 0.01 Thou/mm3 (0.00-0.00); Lymphocytes # (Auto) 0.3 Thou/mm3 (1.0-4.8); Lymphocytes % (Auto) 23 % (10-50); Mean Corpuscular HGB Conc 31.5 g/dl (31.0-37.0); Mean Corpuscular Hemoglobin 30.4 pg (25.0-35.0); Mean Corpuscular Volume 97 fL (80-100); Monocytes # (Auto) 0.3 Thou/mm3 (0.0-0.8); Monocytes % (Auto) 18 % (0-12); Neutrophils # (Auto) 0.8 Thou/mm3 (1.8-7.7); Neutrophils % (Auto) 56 % (37-80); Nucleated Red Blood Cell # 0.00 Thou/mm3 (0.00-0.00); Nucleated Red Blood Cell % 0 /100 WBC (0); RDW Standard Deviation 58.4 fL (36.4-46.3); Red Blood Count 2.27 Miln/mm3 (4.00-5.20)
[2025-09-03 07:10] LABS: White Blood Count 1.5 Thou/mm3 (3.6-11.0)
[2025-09-03 07:12] LABS: Hemoglobin 6.9 g/dL (12.0-16.0); Platelet Count 14 Thou/mm3 (140-440)
[2025-09-03 07:24] LABS: Alanine Aminotransferase 11 U/L (10-49); Albumin, Serum 3.0 gm/dL (3.5-5.0); Albumin/Globulin Ratio 0.9 (1.2-2.2); Alkaline Phosphatase 53 U/L (46-116); Anion Gap 10 (7-16); Aspartate Amino Transferase 36 U/L (0-34); BUN/Creatinine Ratio 6 Ratio (12-20); Bilirubin,Total 2.1 mg/dL (0.3-1.2); Blood Urea Nitrogen 38 mg/dL (9-23); Calcium 8.5 mg/dL (8.3-10.6); Calcium (Corrected) 9.3 mg/dL (8.5-10.1); Carbon Dioxide 30.7 mMol/L (20.0-31.0); Chloride 98 mMol/L (98-107); Creatinine (Component) 6.4 mg/dL (0.6-1.3); Estimated Creatinine Clearance 13.9 mL/min (>60); Globulin 3.5 gm/dL (2.3-3.5); Glucose 122 mg/dL (74-106); Magnesium 2.0 mg/dL (1.6-2.6); Osmolality,Calculated 287 (275-295); Phosphorous 4.1 mg/dL (2.4-5.1); Potassium 4.1 mMol/L (3.4-5.1); Sodium 139 mMol/L (136-145); Total Protein 6.5 gm/dL (5.7-8.2); eGFR 7 See Note
[2025-09-03 08:28] LABS: Slide Review Platelets confirmed
[2025-09-03 08:30] LABS: Path Review Blood Smear Sent to Pathologist
[2025-09-03] MEDS: ASCORBIC ACID 250 MG TABLET 1000 MG PO (09:54)
[2025-09-03] MEDS: PANTOPRAZOLE 40 MG TABLET PO ×2 (09:55→21:34)
[2025-09-03] MEDS: PROPRANOLOL 10 MG TABLET PO (09:55)
[2025-09-03] MEDS: cefTRIAXone/D5w 1gm IV premix 1 GM/50 ML BAG IV (09:56)
--- NOTE | 2025-09-03 12:28 | ESPR_ITS ---
<Statement entered by Erin Daniels MD - 09/03/25 14:57> Patient was seen and examined at bedside, today vital signs within normal limits, her hemoglobin yesterday went down to 6.5, got 1 unit of blood transfusion however her hemoglobin posttransfusion was 6.9, platelets still low at 14, WBC 1.5, she reported that for the past 24 hours she only had 1 drop of rectal bleed. Regarding her pancytopenia she reported that she had bone marrow biopsy was done by computer technology teacher in [place] her name is Bud Dickson, we will reach out to her office on Friday for the results. Her level of consciousness has significantly improved and she is oriented x 4 she is currently on rifaximin and lactulose treatment we also ordered for the patient ceftriaxone for treatment of possible SBP we added also for the patient lactulose twice daily and rifaximin for her hepatic encephalopathy. Patient will have another session of hemodialysis today by Dr. Morgan. - Patient's plan and care discussed with my attending, Dr. Mackenzie Daniels MD Internal Medicine PGY-3 Documentation for date of: 09/03/25 Subjective Subjective Interval history: Overnight team ordered 1 unit PRBC and platelet transfusion. Patient received Tylenol for pain. GI did flexible sigmoidoscopy which showed internal hemorrhoid grade 4 and was banded. The patient was seen and examined at bedside. Patient mentation significantly improved today. Patient is alert and oriented x 4. Patient is able aware that possibility for acute cephalopathy may be due to increased ammonia level she is refused lactulose for the past few days. However now she is agreeable to continue to taking LACTULOSE .Vitals are stable. labs are reviewed and patient is getting dialyzed today. History significant for downtrending hemoglobin 6.5 and hematocrit 20.6. Patient will get transfused in dialysis . Started the patient desmopressin 40mg IVP x1 and Rocephin 1 gm GI infection prophylaxis. Urine close improved from dark red to a clear appearance After and extensive discussion regarding her current diagnoses and management plan, the patient reported previously seen computer technology teacher in [place]. Stated that she underwent a bone marrow biopsy in May when her platelet count was 27. According to the patient biopsy result reported as normal. Will contact oncology Chani Dickson MD ([facility]) to obtained official biopsy result. Exam Vital Signs Temp Pulse Resp BP Pulse Ox O2 Del Method O2 Flow Rate 97.8 F 75 16 128/60 99 Nasal Cannula 2 09/03/25 08:00 09/03/25 09:55 09/03/25 08:00 09/03/25 09:55 09/03/25 08:00 09/03/25 08:00 09/03/25 08:00 Narrative Exam General: A&Ox4 awake, conversant, myoclonic jerking UE>LE (improved),obese Eye: PERRL, EOMI, normal conjunctiva, no scleral icterus HENT: Normocephalic, atraumatic, normal hearing, moist oral mucosa. Ample anterior soft tissue, large neck circumference Neck: Supple, non-tender, no JVD, no lymphadenopathy, tunneled hd cath in the R chest, catheter site is ecchymotic( improving) Lungs: Clear to auscultation, bilateral air entry, no wheezing or rales. Heart: Normal S1 and S2, no S3 or S4 appreciated. Normal rate and regular rhythm, no murmurs, rubs gallops. Abdomen: Soft, non-tender, non-distended, normal bowel sounds. No guarding or rebound tenderness. Musculoskeletal: Normal range of motion and strength, no tenderness or swelling Skin: Skin is warm, dry, no rashes or lesions. 3+ pitting edema of bilateral LE at the ankles and feet up to the mid shins (improving) Neurologic: Alert, awake and oriented x1. CN II-XII grossly intact. No focal neuro deficits. No signs of meningeal irritation noted. Psychiatric: Cooperative, appropriate mood and affect Objective Labs 09/03/25 06:16 09/03/25 06:16 Labs: Laboratory Results - last 24 hr 08/31/25 09/02/25 09/02/25 17:20 05:05 18:14 WBC 1.2 L* RBC 2.29 L Hgb 7.1 L Hct 22.5 L MCV 98 MCH 31.0 MCHC 31.6 RDW Std Deviation 58.5 H Plt Count 13 L* Neut % (Auto) 60 Lymph % (Auto) 20 Alfalfa % (Auto) 17 H Eos % (Auto) 2 Baso % (Auto) 1 Neut # (Auto) 0.7 L Lymph # (Auto) 0.3 L Alfalfa # (Auto) 0.2 Eos # (Auto) 0.0 Baso # (Auto) 0.0 Immature Gran # (Auto) 0.00 Absolute Nucleated RBC 0.00 Immature Gran % 0 Nucleated RBC % 0 Smear Path Review Sent to Pathologist Sodium Potassium Chloride Carbon Dioxide Anion Gap BUN Creatinine Estim Creat Clear Calc eGFR BUN/Creatinine Ratio Glucose Calculated Osmolality Calcium Corrected Calcium Phosphorus Magnesium Total Bilirubin AST ALT Alkaline Phosphatase Total Protein Albumin Globulin Albumin/Globulin Ratio Misc Test Result Platelets confirmed Blood Type A Negative Antibody Screen NEGATIVE Crossmatch See Detail Blood Bank Wristband ID Yes Blood Bank Comment PLATP Ready 09/02/25 09/02/25 09/03/25 21:45 23:05 06:16 WBC 1.4 L* 1.5 L RBC 2.04 L 2.27 L Hgb 6.5 L* 6.9 L* Hct 20.6 L* 21.9 L* MCV 101 H 97 MCH 31.9 30.4 MCHC 31.6 31.5 RDW Std Deviation 60.0 H 58.4 H Plt Count 14 L* 14 L* Neut % (Auto) 66 56 Lymph % (Auto) 18 23 Alfalfa % (Auto) 12 18 H Eos % (Auto) 2 3 Baso % (Auto) 1 0 Neut # (Auto) 0.9 L 0.8 L Lymph # (Auto) 0.3 L 0.3 L Alfalfa # (Auto) 0.2 0.3 Eos # (Auto) 0.0 0.0 Baso # (Auto) 0.0 0.0 Immature Gran # (Auto) 0.01 H 0.01 H Absolute Nucleated RBC 0.00 0.00 Immature Gran % 1 H 1 H Nucleated RBC % 0 0 Smear Path Review Sent to Pathologist Sodium 139 Potassium 4.1 Chloride 98 Carbon Dioxide 30.7 Anion Gap 10 BUN 38 H Creatinine 6.4 H* D Estim Creat Clear Calc 13.9 L eGFR 7 L* BUN/Creatinine Ratio 6 L Glucose 122 H Calculated Osmolality 287 Calcium 8.5 Corrected Calcium 9.3 Phosphorus 4.1 Magnesium 2.0 Total Bilirubin 2.1 H D AST 36 H ALT 11 Alkaline Phosphatase 53 D Total Protein 6.5 Albumin 3.0 L Globulin 3.5 Albumin/Globulin Ratio 0.9 L Misc Test Result Platelets confirmed Platelets confirmed Blood Type Antibody Screen Crossmatch See Detail Blood Bank Wristband ID Blood Bank Comment Cancelled 09/03/25 08:40 WBC RBC Hgb Hct MCV MCH MCHC RDW Std Deviation Plt Count Neut % (Auto) Lymph % (Auto) Alfalfa % (Auto) Eos % (Auto) Baso % (Auto) Neut # (Auto) Lymph # (Auto) Alfalfa # (Auto) Eos # (Auto) Baso # (Auto) Immature Gran # (Auto) Absolute Nucleated RBC Immature Gran % Nucleated RBC % Smear Path Review Sodium Potassium Chloride Carbon Dioxide Anion Gap BUN Creatinine Estim Creat Clear Calc eGFR BUN/Creatinine Ratio Glucose Calculated Osmolality Calcium Corrected Calcium Phosphorus Magnesium Total Bilirubin AST ALT Alkaline Phosphatase Total Protein Albumin Globulin Albumin/Globulin Ratio Misc Test Result Blood Type A Negative Antibody Screen NEGATIVE Crossmatch See Detail Blood Bank Wristband ID Yes Blood Bank Comment PLATP Ready ABG Interpretation ABG results: 08/20/25 09:18 VBG pH 7.38 VBG pCO2 29 L VBG pO2 72 H VBG Base Excess -8 L Quality Measures Quality Measures VTE prophylaxis Assessment & Plan Assessment Current Active Medications: Generic Name Dose Route Start Last Admin Trade Name Freq PRN Reason Stop Dose Admin Hydrocodone Bitart/Acetaminophen 1 tab 08/31/25 13:44 09/01/25 04:28 Hydrocodone/Apap 10/325 Tab PO 09/05/25 13:43 1 tab On Hold: 09/02/25 08:28 Q6HR PRN Administration back pain Amlodipine Besylate 10 mg 08/23/25 09:00 09/03/25 09:55 Amlodipine Besylate 5 Mg Tablet PO 09/22/25 08:59 10 mg QDAY SHERYL Administration Ascorbic Acid 1,000 mg 09/01/25 09:00 09/03/25 09:54 Ascorbic Acid 250 Mg Tablet PO 10/01/25 08:59 1,000 mg DAILY SHERYL Administration Atorvastatin Calcium 10 mg 08/21/25 21:00 09/02/25 20:45 Atorvastatin Calcium 10 Mg Tablet PO 09/20/25 20:59 10 mg HS SHERYL Administration Desmopressin Acetate 40 mcg 09/03/25 14:00 Desmopressin Acetate 4 Mcg/Ml Vial IVP 09/03/25 14:01 X1 ONE Dextrose 25 ml 08/20/25 10:14 Dextrose 50%-Water Inj 50 Ml Syringe IV 09/19/25 10:13 Q15MIN PRN BG 50-70 responsive npo pt Dextrose 50 ml 08/20/25 10:14 Dextrose 50%-Water Inj 50 Ml Syringe IV 09/19/25 10:13 Q15MIN PRN BG <50 OR BG <70 & pt unresponsive Diphenhydramine HCl 25 mg 08/31/25 08:07 08/31/25 18:02 Diphenhydramine 25 Mg Capsule PO 09/30/25 08:06 25 mg On Hold: 09/02/25 08:35 Q6HR PRN Administration ITCHING Epoetin Bryce 10,000 unit 09/03/25 13:00 Epoetin Bryce-Epbx Inj 10,000 Unit/Ml Vial (Non-Esrd) SC 09/03/25 13:01 X1 ONE Gabapentin 300 mg 08/31/25 09:00 09/01/25 13:39 Gabapentin 300 Mg Capsule PO 09/30/25 08:59 300 mg On Hold: 09/02/25 08:27 QDAY SHERYL Administration Glucagon 1 mg 08/20/25 10:14 Glucagon Inj 1 Mg Vial IM Q15MIN PRN BG <70, and no IV access Heparin Sodium (Porcine) 3,300 unit 08/25/25 11:40 09/01/25 11:40 Heparin Sod Inj 1000 Unit/Ml Vial 10 Ml INDWELLCAT 09/05/25 12:43 3,300 unit On Hold: 08/31/25 14:50 PRN PRN Administration DIALYSIS Albumin Human 25 gm in 100 mls @ 100 mls/hr 08/27/25 07:42 08/30/25 10:03 Albuminex 25% Ivpb IV 100 mls/hr Q30MIN PRN Administration DIALYSIS Sodium Chloride 500 mls @ 20 mls/hr 09/02/25 17:12 09/02/25 17:12 Ns IV 09/03/25 17:11 20 mls/hr .Q24H ONE Administration Ceftriaxone Sodium/Dextrose 1 gm in 50 mls @ 100 mls/hr 09/03/25 09:00 09/03/25 09:56 Rocephin/D5w 1gm Iv Premix IV 09/10/25 08:59 100 mls/hr QDAY SHERYL Administration Insulin Degludec 20 unit 09/02/25 21:00 09/02/25 20:44 Insulin Degludec 5 Unit/0.05 Ml (Per 5 Units) SC 10/02/25 20:59 20 unit HS SHERYL Administration Insulin Human Lispro 0 unit 08/29/25 21:15 09/03/25 11:30 Insulin Lispro (Admelog) 1 Unit/0.01 Ml Unit SC 09/28/25 21:14 Not Given ACHS SHERYL Protocol Lactulose 20 gm 08/20/25 22:00 09/03/25 05:32 Lactulose Syrup 20 Gm/30 Ml Udc PO 09/19/25 21:59 20 gm TID SHERYL Administration Protocol Ondansetron HCl 4 mg 08/20/25 10:08 Ondansetron Inj 2 Mg/Ml Inj 2 Ml IVP 09/19/25 10:07 Q6H PRN NAUSEA OR VOMITING Protocol Pantoprazole Sodium 40 mg 09/01/25 09:15 09/03/25 09:55 Pantoprazole 40 Mg Tablet PO 10/01/25 09:14 40 mg BID SHERYL Administration Propranolol HCl 10 mg 08/20/25 21:00 09/03/25 09:55 Propranolol 10 Mg Tablet PO 09/19/25 20:59 10 mg BID SHERYL Administration Rifaximin 550 mg 09/02/25 12:30 09/03/25 09:56 Rifaximin 550 Mg Tablet PO 09/09/25 12:29 550 mg BID SHERYL Administration Sevelamer Carbonate 800 mg 08/23/25 12:00 09/03/25 09:53 Sevelamer Carbonate 800 Mg Tablet PO 09/22/25 11:59 Not Given TIDWM SHERYL Plan Ms Hopper is a 55 year old woman with a hx significant for advanced CKD that has now progressed to ESRD, HFpEF 55-60 12/2024, HLD, HTN, who presented with malaise and shortness of breath, found to be significantly volume overloaded, with elevated BUN and Cr, Nephrology consulted, Dr Neil. Started on dialysis, s/p tunneled cath placement. Currently getting transfused for reccurent thrombocytopenia leukopenia. #Coagulopathy #Anemia #Leukopenia(improving) #Thrombocytopenia #Pancytopenia Patient has signs of end-stage liver disease as all cell lines are low, abnormal coag panel, low albumin, elevated T. bili. Etiology of pancytopenia may be related to ESLD in addition to ESRD. However, may be underlying hematological disorder and will consult hematology. 08/31 Plts 17-> transfuse 1 unit Pheresesis and 15 unit cryoprecipitate( so far pt received 11) 09/01: pls 13-> transfuse 1 unit Pheresesis 09/02 plt 14->14: transfuse 1 unit Pheresesis, 1 pending. Completed cryoprecipitate 09/03 plt->: 2 units PRBC and 2 unit platelet DDX: DIC vs ITP vs TTP Given the patient?s lab values, including thrombocytopenia (platelets <30), prolonged PT and aPTT, and evidence of active bleeding (hematochezia and hematuria), there is concern for DIC. Despite a normal fibrinogen level, which typically suggests that DIC is less likely, the patient's multiple organ dysfunction, particularly with liver and renal involvement, may be impairing the production and clearance of coagulation factors.The patient has been receiving appropriate transfusion support, including PRBCs, platelets, and cryoprecipitate, to address coagulation factor consumption. However, despite these interventions, the patient's CMP and CMP remains abnormal. Additionally, while there is suspicion for thrombotic thrombocytopenic purpura due to altered mental status and progressive renal failure, prior peripheral smear results were normal, which makes this diagnosis less likely. - 05/08/2015 peripheral blood smear showed severe thrombocytopenia and leukopenia with no morphologic abnormalities, moderate normocytic anemia without hemolysis Plan - Neutropenic precautions - Peripheral blood smear ordered, pending - Hematology Dr. Ortiz consulted, appreciate recommendations-transfuse platelet and cryoprecipitate as needed - Continue home Vitamin C 1000mg daily - Close monitoring of platelet counts, coagulation parameters, and renal function consideration for further diagnostic testing may be warranted if the clinical picture continues to evolve #Acute posthemorrhagic anemia # Hematochezia and hematuria #GI bleed #Grade II internal hemorrhoids-> Grade IV, banded #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 Concern for upper GI bleed due to low hemoglobin and hematocrit and hx of esophageal varices..Patient received 6 blood transfusions with HD s/p 5U pRBC, 2U plt. FOBT + Last EGD 12/[address] Ny: gastritis, gastric varices, banding not attempted given low PLT, grade 1 esophageal varices that were too small to band. EGD 08/26: Esophagitis, gastritis w/ hemorrhage (characterized by congestion/edema). No bx taken s/p Ceftriaxone1 gm qd (08/26- 08/27) for SBP ppx, Octreotide 50 mcg/hr (08/26- 08/27) Colonoscopy 08/29: Show internal hemorrhoids grade 1- GI reccomend repeat colonoscopy in 5 years for surveillance 08/31: had 2 bowel movement today with bright red blood per rectum with clots, hematuria, GI informed. Will f/u. The anorectal bleeding might be due to internal hemorrhoids bleeding 09/01: 4 more hematochezia episodes with clots 09/02: Flexible sigmoidoscopy showed hemorrhage of anus and rectum with fourth degree hemorrhoids, banded. Plan: - GI consulted, appreciate recs-flexible sigmoidoscopy completed. Advance diet as tolerated - Transfuse hemoglobin less than 7 - Continue Protonix 40mg IVP BID #Metabolic encephalopathy(resolve) Patient mentation was altered this morning associated with word-finding aphasia, difficulty following commands, and myoclonic jerking. She reported pulm initiated. CT was done and was negative for acute hemorrhage. HELD medication that affects mentation: Sutter, gabapentin and Benadryl. Recheck ammonia is 91, prior 08/20 was 138. Given patient's history of ESRD and ESLD and negative consult due to metabolic derangement. Plan - Continue to monitor mentation fluctuation - Started rifaximin 550 mg p.o. twice daily - Continue lactulose 20 mg p.o. 3 times daily - Holding Benadryl, Sutter, gabapentin( 09/02) #Hematuria (resolving) #Acute Cystitis Acute patient does report urgency to urinate however she has been anuric since admission. She denies dysuria and burning sensation. 08/31-Urinalysis positive for leukocytes esterase, urine RBC 1842, urine WBC 277, hematuria 2+, urine yeast present, no casts noted. Urine color is dark red. Patient is afebrile with WBC 2.0, leukopenia. - Urine culture - >100,000 colonies/ml mixed sidra,possible 09/03-urine close improved from dark red to a clear appearance Plan - Continue to monitor urine output #Hx of Advanced CKD, now with ESRD on HD #Chronic Normocytic Anemia #Severe persistent thrombocytopenia #Severe leukopenia Worsening BUN, Cr, low bicarb, electrolyte abnormalities Completed 3 days of consecutive HD (tolerating well), has tunneled dialysis catheter. HD MWF Conversion of of nontunneled dialysis catheter to tunneled 08/24 Received 3 units of platelet transfusion Dialysis 08/20, 08/22, 08/23, 08/24, 08/25, 08/27, 08/29,08/30, 09/01, 09/03 - Stopped lasix 40 mg IVP BID Plan: - Nephrology Dr. 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 Plan: - Lactulose 20 TID - CTM chest for increased bruising or signs of hematoma at tunneled hd site. #HFpEF (echo 12/2024 w EF 55-60%) #Type II NSTEMI #Acute CHF exacerbation - resolved Weight on admission 129.27 kg Likely 2/2 ESRD (see above) BNP 200s Trend troponin, till peaked : 0.106-->0.124 --> 0.097- stop trending s/p Lasix (held given low urine output, getting dialysis) Plan: - Cardiology consulted, appreciate recs - Strict I and O - Daily Weights #Type 2 DM, insulin dependent A1c 6.5 Home regimen 35 U long acting BID , 20 U short acting tid with meals, Ozempic SC qweekly Uses freestyle merna Plan: - ISS Step 2 - Degludec 20 #Diabetic Neuropathy Ambulates with a 4 wheel walker Plan: - hold Gabapentin 400 mg PO BID - PT consulted, recommend snf #HTN Plan: - Amlodipine 10 mg PO daily #HLD Plan: - Atorvastatin 10 mg PO DHS #Gout Plan: - hold home Ursodiole mg PO TID i/s/o ESRD (see above) #PHUONG Large neck circumference. patient desats to 70s on NC when sleeping, needs to use cpap at night. Daignosed with PHUONG, never recieved CPAP machine at home Plan: - Discharge with CPAP - CPAP qhs while inpatient #Chronic low back pain Plan: - held Sutter 10 mg q6h PRN #Orthostatic tremors Prior ED presntation with tremors, had been evaluated by Dr. Juan. LP 11/2024, recommended outpatient follow up as needed. 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 Plan - wound care consulted, appreciate recs #Hyperkalemia - resolved #Hyperphosphatemia- resolved #Hypermagnesemia- resolved Hospital management: Lines: peripheral IV Diet: renal Bowel: Lactulose 20 TID GI prophylaxis: Pantoprazole 40 mg IV twice daily DVT prophylaxis: SCD given low platelets CODE STATUS: Full code Patient assessed under supervision of attending physician Dr.K Mann and senior resident Dr. Daniels PGY-3 Elyssa Cruz MD PGY-1, Internal Medicine Please note: this document was transcribed using voice recognition technology; minor inaccuracies may be present. Attending Provider Attestation/Addendum I, Maria Fernanda Mann, , attest that I was physically present for the blank portions of the service and evaluated the patient with the resident and I reviewed and discussed the case with the resident and agree with the resident's findings and plans of care as documented above Patient seen and eval this a.m. Mental status is now back to normal. No further episodes of bleeding. However, H&H noted to downtrend and currently hemoglobin is 6.9. Will transfuse 1 unit of PRBCs during dialysis today. Patient received cryoprecipitate and platelets due to bleeding. Will also give DDAVP due to concern for bleed. If patient continues to have rectal bleeding, may benefit from TXA. Patient states that she has always had low platelets and revealed that her baseline platelet count in May was about 27. She also underwent bone marrow biopsy by her computer technology teacher in [place] during which she was told reportedly that she has no bone marrow issues. Patient states that she is now aware that she must take her lactulose given the episode of altered mental status that occurred yesterday. She is to undergo dialysis today. She continues to have 2+ pitting edema in bilateral lower extremities.
[2025-09-03] MEDS: EPOETIN ALFA-EPBX INJ 10,000 UNIT/ML VIAL (NON-ESRD) 10000 UNIT SC (14:12)
[2025-09-03 17:24] LABS: Hematocrit 27.5 % (36.0-46.0); Hemoglobin 9.0 g/dL (12.0-16.0)
[2025-09-03] MEDS: SEVELAMER CARBONATE 800 MG TABLET PO (17:37)
[2025-09-03] MEDS: DESMOPRESSIN ACETATE 4 MCG/ML VIAL 40 MCG IVP (18:21)
--- NOTE | 2025-09-03 19:49 | ESPR_ITS ---
Documentation for date of: 09/03/25 Subjective Subjective Interval history: Status post band ligation of the bleeding internal hemorrhoid Hemoglobin hematocrit 9.0 and 27.5 Exam Vital Signs Temp Pulse Resp BP Pulse Ox O2 Del Method O2 Flow Rate 98 F 64 16 118/52 L 99 Nasal Cannula 2 09/03/25 16:47 09/03/25 16:47 09/03/25 16:47 09/03/25 16:47 09/03/25 16:47 09/03/25 12:00 09/03/25 16:47 Objective Labs 09/03/25 17:12 09/03/25 06:16 Labs: Laboratory Results - last 24 hr 08/31/25 09/02/25 09/02/25 17:20 21:45 23:05 WBC 1.4 L* RBC 2.04 L Hgb 6.5 L* Hct 20.6 L* MCV 101 H MCH 31.9 MCHC 31.6 RDW Std Deviation 60.0 H Plt Count 14 L* Neut % (Auto) 66 Lymph % (Auto) 18 [place] % (Auto) 12 Eos % (Auto) 2 Baso % (Auto) 1 Neut # (Auto) 0.9 L Lymph # (Auto) 0.[address] # (Auto) 0.2 Eos # (Auto) 0.0 Baso # (Auto) 0.0 Immature Gran # (Auto) 0.01 H Absolute Nucleated RBC 0.00 Immature Gran % 1 H Nucleated RBC % 0 Smear Path Review Sodium Potassium Chloride Carbon Dioxide Anion Gap BUN Creatinine Estim Creat Clear Calc eGFR BUN/Creatinine Ratio Glucose Calculated Osmolality Calcium Corrected Calcium Phosphorus Magnesium Total Bilirubin AST ALT Alkaline Phosphatase Total Protein Albumin Globulin Albumin/Globulin Ratio Misc Test Result Platelets confirmed Blood Type A Negative Antibody Screen NEGATIVE Crossmatch See Detail See Detail Blood Bank Wristband ID Yes Blood Bank Comment PLATP Ready Cancelled 09/03/25 09/03/25 09/03/25 06:16 08:40 17:12 WBC 1.5 L RBC 2.27 L Hgb 6.9 L* 9.0 L D Hct 21.9 L* 27.5 L MCV 97 MCH 30.4 MCHC 31.5 RDW Std Deviation 58.4 H Plt Count 14 L* Neut % (Auto) 56 Lymph % (Auto) 23 [place] % (Auto) 18 H Eos % (Auto) 3 Baso % (Auto) 0 Neut # (Auto) 0.8 L Lymph # (Auto) 0.[address] [place] # (Auto) 0.3 Eos # (Auto) 0.0 Baso # (Auto) 0.0 Immature Gran # (Auto) 0.01 H Absolute Nucleated RBC 0.00 Immature Gran % 1 H Nucleated RBC % 0 Smear Path Review Sent to Pathologist Sodium 139 Potassium 4.1 Chloride 98 Carbon Dioxide 30.7 Anion Gap 10 BUN 38 H Creatinine 6.4 H* D Estim Creat Clear Calc 13.9 L eGFR 7 L* BUN/Creatinine Ratio 6 L Glucose 122 H Calculated Osmolality 287 Calcium 8.5 Corrected Calcium 9.3 Phosphorus 4.1 Magnesium 2.0 Total Bilirubin 2.1 H D AST 36 H ALT 11 Alkaline Phosphatase 53 D Total Protein 6.5 Albumin 3.0 L Globulin 3.5 Albumin/Globulin Ratio 0.9 L Misc Test Result Platelets confirmed Blood Type A Negative Antibody Screen NEGATIVE Crossmatch See Detail Blood Bank Wristband ID Yes Blood Bank Comment PLATP Ready Impressions Impression: Lower GI bleeding secondary to large ulcerated internal hemorrhoid requiring band ligation Continue to monitor CBC ABG Interpretation ABG results: 08/20/25 09:18 VBG pH 7.38 VBG pCO2 29 L VBG pO2 72 H VBG Base Excess -8 L Assessment & Plan A&P Narrative # Hemoccult positive stool with drop in hemoglobin hematocrit requiring blood transfusion on a weekly basis Plan N.p.o. midnight tonight except p.o. meds Consent obtained in the dialysis room for fiberoptic esophagogastroduodenoscopy with possible biopsy possible therapeutic intervention under intravenous moderate sedation scheduled for tomorrow morning Depending on the results of the upper endoscopy patient may need a colonoscopy prior to discharge and as there is no record of colonoscopy on board although she claims she had a colonoscopy in the last 2 [address] 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
[2025-09-03] MEDS: INSULIN LISPRO (AdmeLOG) 1 UNIT/0.01 ML UNIT SC (21:34)
[2025-09-03] MEDS: ATORVASTATIN CALCIUM 10 MG TABLET PO (21:34)
[2025-09-03] MEDS: INSULIN DEGLUDEC 5 UNIT/0.05 ML (PER 5 UNITS) 20 UNIT SC (21:35)
[2025-09-03] MEDS: ACETAMINOPHEN 325 MG TABLET 650 MG PO (22:58)
[2025-09-04] VITALS (10 sets, daily range): BP systolic 105–132; BP diastolic 49–62; PULSE 65–73; RESP 15–20; TEMP 36.8–37.6; O2SAT 95–100; BMI 60.8
[2025-09-04] MEDS: LACTULOSE SYRUP 20 GM/30 ML UDC PO (05:07)
[2025-09-04 06:36] LABS: Alanine Aminotransferase 10 U/L (10-49); Albumin, Serum 3.0 gm/dL (3.5-5.0); Albumin/Globulin Ratio 0.8 (1.2-2.2); Alkaline Phosphatase 52 U/L (46-116); Anion Gap 7 (7-16); Aspartate Amino Transferase 46 U/L (0-34); BUN/Creatinine Ratio 4 Ratio (12-20); Bilirubin,Total 1.8 mg/dL (0.3-1.2); Blood Urea Nitrogen 23 mg/dL (9-23); Calcium 8.3 mg/dL (8.3-10.6); Calcium (Corrected) 9.1 mg/dL (8.5-10.1); Carbon Dioxide 28.0 mMol/L (20.0-31.0); Chloride 101 mMol/L (98-107); Creatinine (Component) 5.2 mg/dL (0.6-1.3); Estimated Creatinine Clearance 17.1 mL/min (>60); Globulin 3.8 gm/dL (2.3-3.5); Glucose 181 mg/dL (74-106); Magnesium 1.9 mg/dL (1.6-2.6); Osmolality,Calculated 280 (275-295); Phosphorous 3.7 mg/dL (2.4-5.1); Potassium 4.4 mMol/L (3.4-5.1); Sodium 136 mMol/L (136-145); Total Protein 6.8 gm/dL (5.7-8.2); eGFR 9 See Note
[2025-09-04 08:04] LABS: Basophils # (Auto) 0.0 Thou/mm3 (0.0-0.2); Basophils % (Auto) 1 % (0-2.5); Eosinophils # (Auto) 0.1 Thou/mm3 (0.0-0.5); Eosinophils % (Auto) 3 % (0-10); Hematocrit 24.9 % (36.0-46.0); Immature Granulocytes Auto 0.01 Thou/mm3 (0.00-0.00); Lymphocytes # (Auto) 0.5 Thou/mm3 (1.0-4.8); Lymphocytes % (Auto) 24 % (10-50); Mean Corpuscular HGB Conc 32.1 g/dl (31.0-37.0); Mean Corpuscular Hemoglobin 30.4 pg (25.0-35.0); Mean Corpuscular Volume 95 fL (80-100); Monocytes # (Auto) 0.3 Thou/mm3 (0.0-0.8); Monocytes % (Auto) 16 % (0-12); Neutrophils # (Auto) 1.1 Thou/mm3 (1.8-7.7); Neutrophils % (Auto) 57 % (37-80); Nucleated Red Blood Cell # 0.00 Thou/mm3 (0.00-0.00); Nucleated Red Blood Cell % 0 /100 WBC (0); RDW Standard Deviation 61.3 fL (36.4-46.3); Red Blood Count 2.63 Miln/mm3 (4.00-5.20); White Blood Count 2.0 Thou/mm3 (3.6-11.0)
[2025-09-04 08:15] LABS: Hemoglobin 8.0 g/dL (12.0-16.0)
[2025-09-04 08:16] LABS: Platelet Count 18 Thou/mm3 (140-440)
[2025-09-04 08:17] LABS: Slide Review Platelets confirmed
[2025-09-04] MEDS: PANTOPRAZOLE 40 MG TABLET PO ×2 (09:58→20:51)
[2025-09-04] MEDS: SEVELAMER CARBONATE 800 MG TABLET PO ×3 (09:59→17:03)
[2025-09-04] MEDS: ASCORBIC ACID 250 MG TABLET 1000 MG PO (10:00)
[2025-09-04] MEDS: PROPRANOLOL 10 MG TABLET PO ×2 (10:00→20:51)
[2025-09-04] MEDS: cefTRIAXone/D5w 1gm IV premix 1 GM/50 ML BAG IV (10:06)
[2025-09-04] MEDS: INSULIN LISPRO (AdmeLOG) 1 UNIT/0.01 ML UNIT SC ×3 (11:43→20:52)
--- NOTE | 2025-09-04 13:42 | ESPR_ITS ---
<Statement entered by Willis Ta MD - 09/04/25 14:22> No acute overnight events. Seen and examined at bedside and patient resting comfortably in bed. She remains alert and oriented after starting her lactulose and rifaximin. Vital signs stable. CBC shows slight improvement in blood counts as WBCs increased and platelets increased. Repeat H&H after transfusion of 3 units PRBC showed hemoglobin 9.0 and a.m. labs showed hemoglobin 8.0 but no bloody bowel movements overnight. Of note, she had undergone sigmoidoscopy and found to have grade 4 internal hemorrhoids with 1 band successfully placed at another large, ulcerated internal hemorrhoid that was bleeding with a blood clot and a band ligator was also placed and hemorrhage was controlled. Medically cleared for discharge and [facility]. ----- Note reviewed and agree with care plan as documented. Please refer to the note below for further details. Plan discussed with attending physician Dr. Mackenzie Ta MD PGY-2 Internal Medicine Documentation for date of: 09/04/25 Subjective Subjective Interval history: Ms. Mcdonough is pleasant during conversation and expresses understanding of the need for medication adherence. She endorses that the lactulose that was prescribed for her was thought to be for bowel movements, but upon the medical team's reinforcement for the need to take the lactulose irregardless she understood. VSS, patient continues to be pancytopenic at her baseline. Other labs and lytes are WNL. Ms. Hopper endorses chronic pain on 10 of Ethel but the team has emphasized the need to be conservative with any medications that may alter her mental status given the previous episode of encephalopathy necessitating HD. Exam Vital Signs Temp Pulse Resp BP Pulse Ox O2 Del Method O2 Flow Rate 98.3 F 73 17 118/58 L 95 Nasal Cannula 1 09/04/25 12:00 09/04/25 12:00 09/04/25 12:00 09/04/25 12:00 09/04/25 12:00 09/04/25 12:09/04/25 12:00 Narrative Exam General: alert and oriented to self/place/year, no acute distress, able to speak full sentences; mordbidly obsese, expressing muscle/achy pain in LLE HEENT: NC/AT, mucous membranes moist, bilateral sclera anicteric Cardiovascular: regular rate and rhythm, S1/S2 present, no murmurs appreciated Pulmonary: clear to auscultation bilaterally, no rales/rhonchi/wheezes Abdominal: soft, nontender, present bowel sounds Musculoskeletal: no peripheral edema Skin: Warm, well-perfused; bilateral ecchymoses at sites of IV's, antecubital area(s) Objective Labs 09/05/25 04:48 09/05/25 04:48 Labs: Laboratory Results - last 24 hr 09/03/25 09/03/25 09/04/25 08:40 17:12 05:10 WBC RBC Hgb 9.0 L D Hct 27.5 L MCV MCH MCHC RDW Std Deviation Plt Count Neut % (Auto) Lymph % (Auto) [place] % (Auto) Eos % (Auto) Baso % (Auto) Neut # (Auto) Lymph # (Auto) [place] # (Auto) Eos # (Auto) Baso # (Auto) Immature Gran # (Auto) Absolute Nucleated RBC Immature Gran % Nucleated RBC % Sodium 136 Potassium 4.4 Chloride 101 Carbon Dioxide 28.0 Anion Gap 7 BUN 23 Creatinine 5.2 H* D Estim Creat Clear Calc 17.1 L eGFR 9 L* BUN/Creatinine Ratio 4 L Glucose 181 H D Calculated Osmolality 280 Calcium 8.3 Corrected Calcium 9.1 Phosphorus 3.7 Magnesium 1.9 Total Bilirubin 1.8 H AST 46 H ALT 10 Alkaline Phosphatase 52 Total Protein 6.8 Albumin 3.0 L Globulin 3.8 H Albumin/Globulin Ratio 0.8 L Misc Test Result Blood Type A Negative Antibody Screen NEGATIVE Crossmatch See Detail Blood Bank Wristband ID Yes Blood Bank Comment PLATP Ready 09/04/25 07:25 WBC 2.0 L RBC 2.63 L Hgb 8.0 L Hct 24.9 L MCV 95 MCH 30.4 MCHC 32.1 RDW Std Deviation 61.3 H Plt Count 18 L* D Neut % (Auto) 57 Lymph % (Auto) 24 [place] % (Auto) 16 H Eos % (Auto) 3 Baso % (Auto) 1 Neut # (Auto) 1.1 L Lymph # (Auto) 0.5 L [place] # (Auto) 0.3 Eos # (Auto) 0.1 Baso # (Auto) 0.0 Immature Gran # (Auto) 0.01 H Absolute Nucleated RBC 0.00 Immature Gran % 1 H Nucleated RBC % 0 Sodium Potassium Chloride Carbon Dioxide Anion Gap BUN Creatinine Estim Creat Clear Calc eGFR BUN/Creatinine Ratio Glucose Calculated Osmolality Calcium Corrected Calcium Phosphorus Magnesium Total Bilirubin AST ALT Alkaline Phosphatase Total Protein Albumin Globulin Albumin/Globulin Ratio Misc Test Result Platelets confirmed Blood Type Antibody Screen Crossmatch Blood Bank Wristband ID Blood Bank Comment ABG Interpretation ABG results: 08/20/25 09:18 VBG pH 7.38 VBG pCO2 29 L VBG pO2 72 H VBG Base Excess -8 L Quality Measures Quality Measures VTE prophylaxis Assessment & Plan Assessment Current Active Medications: Generic Name Dose Route Start Last Admin Trade Name Freq PRN Reason Stop Dose Admin Acetaminophen 650 mg 09/03/25 22:48 09/03/25 22:58 Acetaminophen 325 Mg Tablet PO 10/03/25 22:47 650 mg Q4HR PRN Administration Fever >101F or pain 1-6 Amlodipine Besylate 10 mg 08/23/25 09:00 09/04/25 10:06 Amlodipine Besylate 5 Mg Tablet PO 09/22/25 08:59 10 mg QDAY SHERYL Administration Ascorbic Acid 1,000 mg 09/01/25 09:00 09/04/25 10:00 Ascorbic Acid 250 Mg Tablet PO 10/01/25 08:59 1,000 mg DAILY SHERYL Administration Atorvastatin Calcium 10 mg 08/21/25 21:00 09/03/25 21:34 Atorvastatin Calcium 10 Mg Tablet PO 09/20/25 20:59 10 mg HS SHERYL Administration Dextrose 25 ml 08/20/25 10:14 Dextrose 50%-Water Inj 50 Ml Syringe IV 09/19/25 10:13 Q15MIN PRN BG 50-70 responsive npo pt Dextrose 50 ml 08/20/25 10:14 Dextrose 50%-Water Inj 50 Ml Syringe IV 09/19/25 10:13 Q15MIN PRN BG <50 OR BG <70 & pt unresponsive Diphenhydramine HCl 25 mg 08/31/25 08:07 08/31/25 18:02 Diphenhydramine 25 Mg Capsule PO 09/30/25 08:06 25 mg On Hold: 09/02/25 08:35 Q6HR PRN Administration ITCHING Gabapentin 300 mg 08/31/25 09:00 09/01/25 13:39 Gabapentin 300 Mg Capsule PO 09/30/25 08:59 300 mg On Hold: 09/02/25 08:27 QDAY SHERYL Administration Glucagon 1 mg 08/20/25 10:14 Glucagon Inj 1 Mg Vial IM Q15MIN PRN BG <70, and no IV access Heparin Sodium (Porcine) 3,300 unit 08/25/25 11:40 09/01/25 11:40 Heparin Sod Inj 1000 Unit/Ml Vial 10 Ml INDWELLCAT 09/05/25 12:43 3,300 unit On Hold: 08/31/25 14:50 PRN PRN Administration DIALYSIS Albumin Human 25 gm in 100 mls @ 100 mls/hr 08/27/25 07:42 08/30/25 10:03 Albuminex 25% Ivpb IV 100 mls/hr Q30MIN PRN Administration DIALYSIS Ceftriaxone Sodium/Dextrose 1 gm in 50 mls @ 100 mls/hr 09/03/25 09:00 09/04/25 10:06 Rocephin/D5w 1gm Iv Premix IV 09/10/25 08:59 100 mls/hr QDAY SHERYL Administration Insulin Degludec 20 unit 09/02/25 21:00 09/03/25 21:35 Insulin Degludec 5 Unit/0.05 Ml (Per 5 Units) SC 10/02/25 20:59 20 unit HS SHERYL Administration Insulin Human Lispro 0 unit 08/29/25 21:15 09/04/25 11:43 Insulin Lispro (Admelog) 1 Unit/0.01 Ml Unit SC 09/28/25 21:14 4 unit ACHS SHERYL Administration Protocol Lactulose 20 gm 08/20/25 22:00 09/04/25 05:07 Lactulose Syrup 20 Gm/30 Ml Udc PO 09/19/25 21:59 20 gm TID SHERYL Administration Protocol Ondansetron HCl 4 mg 08/20/25 10:08 Ondansetron Inj 2 Mg/Ml Inj 2 Ml IVP 09/19/25 10:07 Q6H PRN NAUSEA OR VOMITING Protocol Pantoprazole Sodium 40 mg 09/01/25 09:15 09/04/25 09:58 Pantoprazole 40 Mg Tablet PO 10/01/25 09:14 40 mg BID SHERYL Administration Propranolol HCl 10 mg 08/20/25 21:00 09/04/25 10:00 Propranolol 10 Mg Tablet PO 09/19/25 20:59 10 mg BID SHERYL Administration Rifaximin 550 mg 09/02/25 12:30 09/04/25 09:59 Rifaximin 550 Mg Tablet PO 09/09/25 12:29 550 mg BID SHERYL Administration Sevelamer Carbonate 800 mg 08/23/25 12:00 09/04/25 11:43 Sevelamer Carbonate 800 Mg Tablet PO 09/22/25 11:59 800 mg TIDWM SHERYL Administration Plan Ms Hopper is a 55 year old woman with a hx significant for advanced CKD that has now progressed to ESRD, HFpEF 55-60 12/2024, HLD, HTN, who presented with malaise and shortness of breath, found to be significantly volume overloaded, with elevated BUN and Cr, Nephrology consulted, Dr Neil. Started on dialysis, s/p tunneled cath placement. Currently getting transfused for reccurent thrombocytopenia leukopenia. #Coagulopathy #Anemia #Leukopenia(improving) #Thrombocytopenia #Pancytopenia Patient has signs of end-stage liver disease as all cell lines are low, abnormal coag panel, low albumin, elevated T. bili. Etiology of pancytopenia may be related to ESLD in addition to ESRD. However, may be underlying hematological disorder and will consult hematology. 08/31 Plts 17-> transfuse 1 unit Pheresesis and 15 unit cryoprecipitate( so far pt received 11) 09/01: pls 13-> transfuse 1 unit Pheresesis 09/02 plt 14->14: transfuse 1 unit Pheresesis, 1 pending. Completed cryoprecipitate 09/03 plt->: 2 units PRBC and 2 unit platelet DDX: DIC vs ITP vs TTP Given the patient?s lab values, including thrombocytopenia (platelets <30), prolonged PT and aPTT, and evidence of active bleeding (hematochezia and hematuria), there is concern for DIC. Despite a normal fibrinogen level, which typically suggests that DIC is less likely, the patient's multiple organ dysfunction, particularly with liver and renal involvement, may be impairing the production and clearance of coagulation factors.The patient has been receiving appropriate transfusion support, including PRBCs, platelets, and cryoprecipitate, to address coagulation factor consumption. However, despite these interventions, the patient's CMP and CMP remains abnormal. Additionally, while there is suspicion for thrombotic thrombocytopenic purpura due to altered mental status and progressive renal failure, prior peripheral smear results were normal, which makes this diagnosis less likely. - 05/08/2015 peripheral blood smear showed severe thrombocytopenia and leukopenia with no morphologic abnormalities, moderate normocytic anemia without hemolysis 09/04: H&H today improved, Hgb 8.0 from yesterday's 6.9; more likely hemodilutional than active bleeding Plan - Neutropenic precautions - Peripheral blood smear ordered, pending - Hematology Dr. Ortiz consulted, appreciate recommendations-transfuse platelet and cryoprecipitate as needed - Continue home Vitamin C 1000mg daily - Close monitoring of platelet counts, coagulation parameters, and renal function consideration for further diagnostic testing may be warranted if the clinical picture continues to evolve #Acute posthemorrhagic anemia # Hematochezia and hematuria #GI bleed #Grade II internal hemorrhoids-> Grade IV, banded #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 Concern for upper GI bleed due to low hemoglobin and hematocrit and hx of esophageal varices..Patient received 6 blood transfusions with HD s/p 5U pRBC, 2U plt. FOBT + Last EGD 12/[address] Ny: gastritis, gastric varices, banding not attempted given low PLT, grade 1 esophageal varices that were too small to band. EGD 08/26: Esophagitis, gastritis w/ hemorrhage (characterized by congestion/edema). No bx taken s/p Ceftriaxone1 gm qd (08/26- 08/27) for SBP ppx, Octreotide 50 mcg/hr (08/26- 08/27) Colonoscopy 08/29: Show internal hemorrhoids grade 1- GI reccomend repeat colonoscopy in 5 years for surveillance 08/31: had 2 bowel movement today with bright red blood per rectum with clots, hematuria, GI informed. Will f/u. The anorectal bleeding might be due to internal hemorrhoids bleeding 09/01: 4 more hematochezia episodes with clots 09/02: Flexible sigmoidoscopy showed hemorrhage of anus and rectum with fourth degree hemorrhoids, banded. 09/04: improving hemoglobin and hematocrit Plan: - GI consulted, appreciate recs-flexible sigmoidoscopy completed. Advance diet as tolerated; on Renal diet - Transfuse hemoglobin less than 7 - Continue Protonix 40mg IVP BID #Metabolic encephalopathy(resolve) Patient mentation was previously altered in AM associated with word-finding aphasia, difficulty following commands, and myoclonic jerking. She reported pulm initiated. CT was done and was negative for acute hemorrhage. HELD medication that affects mentation: Ethel, gabapentin and Benadryl. Recheck ammonia is 91, prior 08/20 was 138. Given patient's history of ESRD and ESLD and negative consult due to metabolic derangement. Plan - Continue to monitor mentation fluctuation - rifaximin 550 mg p.o. twice daily - Continue lactulose 20 mg p.o. 3 times daily - Holding Benadryl, Ethel, gabapentin( 09/02) #Hematuria (resolving) #Acute Cystitis Acute patient does report urgency to urinate however she has been anuric since admission. She denies dysuria and burning sensation. 08/31-Urinalysis positive for leukocytes esterase, urine RBC 1842, urine WBC 277, hematuria 2+, urine yeast present, no casts noted. Urine color is dark red. Patient is afebrile with WBC 2.0, leukopenia. - Urine culture - >100,000 colonies/ml mixed sidra,possible 09/03-urine close improved from dark red to a clear appearance Plan - Continue to monitor urine output #Hx of Advanced CKD, now with ESRD on HD #Chronic Normocytic Anemia #Severe persistent thrombocytopenia #Severe leukopenia Worsening BUN, Cr, low bicarb, electrolyte abnormalities Completed 3 days of consecutive HD (tolerating well), has tunneled dialysis catheter. HD MWF Conversion of of nontunneled dialysis catheter to tunneled 08/24 Received 3 units of platelet transfusion Dialysis 08/20, 08/22, 08/23, 08/24, 08/25, 08/27, 08/29,08/30, 09/01, 09/03 - Stopped lasix 40 mg IVP BID Plan: - Nephrology Dr. 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 Plan: - Lactulose 20 TID - CTM chest for increased bruising or signs of hematoma at tunneled hd site. #HFpEF (echo 12/2024 w EF 55-60%) #Type II NSTEMI #Acute CHF exacerbation - resolved Weight on admission 129.27 kg Likely 2/2 ESRD (see above) BNP 200s Trend troponin, till peaked : 0.106-->0.124 --> 0.097- stop trending s/p Lasix (held given low urine output, getting dialysis) Plan: - Cardiology consulted, appreciate recs - Strict I and O - Daily Weights #Type 2 DM, insulin dependent A1c 6.5 Home regimen 35 U long acting BID , 20 U short acting tid with meals, Ozempic SC qweekly Uses freestyle merna Plan: - ISS Step 2 - Degludec 20 #Diabetic Neuropathy Ambulates with a 4 wheel walker Plan: - hold Gabapentin 400 mg PO BID - PT consulted, recommend snf #HTN Plan: - Amlodipine 10 mg PO daily #HLD Plan: - Atorvastatin 10 mg PO DHS #Gout Plan: - hold home Ursodiole mg PO TID i/s/o ESRD (see above) #PHUONG Large neck circumference. patient desats to 70s on NC when sleeping, needs to use cpap at night. Daignosed with PHUONG, never recieved CPAP machine at home Plan: - Discharge with CPAP - CPAP qhs while inpatient #Chronic low back pain Plan: - held Ethel 10 mg q6h PRN #Orthostatic tremors Prior ED presntation with tremors, had been evaluated by Dr. Juan. LP 11/2024, recommended outpatient follow up as needed. 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 Plan - wound care consulted, appreciate recs #Hyperkalemia - resolved #Hyperphosphatemia- resolved #Hypermagnesemia- resolved Hospital management: Lines: peripheral IV Diet: renal Bowel: Lactulose 20 TID GI prophylaxis: Pantoprazole 40 mg IV twice daily DVT prophylaxis: SCD given low platelets CODE STATUS: Full code Patient seen and discussed with attending physician Dr. Maria Fernanda Mann and senior resident Dr. Willis Ozuna MD, PGY-1 Attending Provider Attestation/Addendum I, Maria Fernanda Mann, DO, attest that I was physically present for the blank portions of the service and evaluated the patient with the resident and I reviewed and discussed the case with the resident and agree with the resident's findings and plans of care as documented above Patient seen and eval this a.m. Patient is resting comfortably and states that she is feeling well. She has not had any bloody bowel movements and hemoglobin has been improved after receiving 3 units of PRBCs yesterday with dialysis. Platelet count has also improved. Patient encouraged to drink her lactulose. She is hemodynamically stable at this time. Will plan for [facility] when she receives her dialysis schedule. Lower extremity edema appears much improved with trace pitting edema bilaterally.
--- NOTE | 2025-09-04 15:00 | PC.SS ---
Discharge rounds: Patient is a new dialysis. The patient does not need a BiPAP. Patient is expected to d/c tomorrow, 09/05/2025, to [facility], as confirmed with Stephanie?pending schedule outpatient dialysis chair. Stephanie from [facility] requested that set up [facility] for the first dialysis appointment.
--- NOTE | 2025-09-04 16:18 | PD.IMPROG ---
Documentation for date of: 09/04/25 Subjective Subjective Interval history: Slight drop in hemoglobin hematocrit at 8.0 and 24.9 Status post banding of the internal hemorrhoid which was the cause of bleeding Exam Vital Signs Temp Pulse Resp BP Pulse Ox O2 Del Method O2 Flow Rate 98.3 F 73 17 118/58 L 95 Nasal Cannula 1 09/04/25 12:00 09/04/25 12:00 09/04/25 12:00 09/04/25 12:00 09/04/25 12:00 09/04/25 12:00 09/04/25 12:00 Objective Labs 09/04/25 07:25 09/04/25 05:10 Labs: Laboratory Results - last 24 hr 09/03/25 09/03/25 09/04/25 08:40 17:12 05:10 WBC RBC Hgb 9.0 L D Hct 27.5 L MCV MCH MCHC RDW Std Deviation Plt Count Neut % (Auto) Lymph % (Auto) [place] % (Auto) Eos % (Auto) Baso % (Auto) Neut # (Auto) Lymph # (Auto) [place] # (Auto) Eos # (Auto) Baso # (Auto) Immature Gran # (Auto) Absolute Nucleated RBC Immature Gran % Nucleated RBC % Sodium 136 Potassium 4.4 Chloride 101 Carbon Dioxide 28.0 Anion Gap 7 BUN 23 Creatinine 5.2 H* D Estim Creat Clear Calc 17.1 L eGFR 9 L* BUN/Creatinine Ratio 4 L Glucose 181 H D Calculated Osmolality 280 Calcium 8.3 Corrected Calcium 9.1 Phosphorus 3.7 Magnesium 1.9 Total Bilirubin 1.8 H AST 46 H ALT 10 Alkaline Phosphatase 52 Total Protein 6.8 Albumin 3.0 L Globulin 3.8 H Albumin/Globulin Ratio 0.8 L Misc Test Result Blood Type A Negative Antibody Screen NEGATIVE Crossmatch See Detail Blood Bank Wristband ID Yes Blood Bank Comment PLATP Ready 09/04/25 07:25 WBC 2.0 L RBC 2.63 L Hgb 8.0 L Hct 24.9 L MCV 95 MCH 30.4 MCHC 32.1 RDW Std Deviation 61.3 H Plt Count 18 L* D Neut % (Auto) 57 Lymph % (Auto) 24 [place] % (Auto) 16 H Eos % (Auto) 3 Baso % (Auto) 1 Neut # (Auto) 1.1 L Lymph # (Auto) 0.5 L [place] # (Auto) 0.3 Eos # (Auto) 0.1 Baso # (Auto) 0.0 Immature Gran # (Auto) 0.01 H Absolute Nucleated RBC 0.00 Immature Gran % 1 H Nucleated RBC % 0 Sodium Potassium Chloride Carbon Dioxide Anion Gap BUN Creatinine Estim Creat Clear Calc eGFR BUN/Creatinine Ratio Glucose Calculated Osmolality Calcium Corrected Calcium Phosphorus Magnesium Total Bilirubin AST ALT Alkaline Phosphatase Total Protein Albumin Globulin Albumin/Globulin Ratio Misc Test Result Platelets confirmed Blood Type Antibody Screen Crossmatch Blood Bank Wristband ID Blood Bank Comment Impressions Impression: Rectal bleeding status post band ligation continue to monitor CBC ABG Interpretation ABG results: 08/20/25 09:18 VBG pH 7.38 VBG pCO2 29 L VBG pO2 72 H VBG Base Excess -8 L Assessment & Plan A&P Narrative # Hemoccult positive stool with drop in hemoglobin hematocrit requiring blood transfusion on a weekly basis Plan N.p.o. midnight tonight except p.o. meds Consent obtained in the dialysis room for fiberoptic esophagogastroduodenoscopy with possible biopsy possible therapeutic intervention under intravenous moderate sedation scheduled for tomorrow morning Depending on the results of the upper endoscopy patient may need a colonoscopy prior to discharge and as there is no record of colonoscopy on board although she claims she had a colonoscopy in the last 2 [address] 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
[2025-09-04] MEDS: ATORVASTATIN CALCIUM 10 MG TABLET PO (20:52)
[2025-09-04] MEDS: INSULIN DEGLUDEC 5 UNIT/0.05 ML (PER 5 UNITS) 20 UNIT SC (20:53)
[2025-09-05] VITALS (7 sets, daily range): BP systolic 126–140; BP diastolic 54–62; PULSE 63–100; RESP 14–24; TEMP 36.4–37.1; O2SAT 92–98; BMI 60.4
[2025-09-05] MEDS: LACTULOSE SYRUP 20 GM/30 ML UDC PO ×2 (05:52→14:31)
[2025-09-05 06:09] LABS: Basophils # (Auto) 0.0 Thou/mm3 (0.0-0.2); Basophils % (Auto) 0 % (0-2.5); Eosinophils # (Auto) 0.1 Thou/mm3 (0.0-0.5); Eosinophils % (Auto) 4 % (0-10); Hematocrit 25.3 % (36.0-46.0); Immature Granulocytes Auto 0.02 Thou/mm3 (0.00-0.00); Lymphocytes # (Auto) 0.4 Thou/mm3 (1.0-4.8); Lymphocytes % (Auto) 19 % (10-50); Mean Corpuscular HGB Conc 31.2 g/dl (31.0-37.0); Mean Corpuscular Hemoglobin 30.2 pg (25.0-35.0); Mean Corpuscular Volume 97 fL (80-100); Monocytes # (Auto) 0.3 Thou/mm3 (0.0-0.8); Monocytes % (Auto) 15 % (0-12); Neutrophils # (Auto) 1.4 Thou/mm3 (1.8-7.7); Neutrophils % (Auto) 61 % (37-80); Nucleated Red Blood Cell # 0.00 Thou/mm3 (0.00-0.00); Nucleated Red Blood Cell % 0 /100 WBC (0); RDW Standard Deviation 60.5 fL (36.4-46.3); Red Blood Count 2.62 Miln/mm3 (4.00-5.20); White Blood Count 2.2 Thou/mm3 (3.6-11.0)
[2025-09-05 06:12] LABS: Hemoglobin 7.9 g/dL (12.0-16.0); Platelet Count 20 Thou/mm3 (140-440)
[2025-09-05 06:17] LABS: Slide Review Platelets confirmed
[2025-09-05 06:44] LABS: Alanine Aminotransferase 8 U/L (10-49); Albumin, Serum 3.1 gm/dL (3.5-5.0); Albumin/Globulin Ratio 0.8 (1.2-2.2); Alkaline Phosphatase 58 U/L (46-116); Anion Gap 10 (7-16); Aspartate Amino Transferase 30 U/L (0-34); BUN/Creatinine Ratio 6 Ratio (12-20); Bilirubin,Total 1.4 mg/dL (0.3-1.2); Blood Urea Nitrogen 34 mg/dL (9-23); Calcium 8.6 mg/dL (8.3-10.6); Calcium (Corrected) 9.3 mg/dL (8.5-10.1); Carbon Dioxide 28.4 mMol/L (20.0-31.0); Chloride 98 mMol/L (98-107); Creatinine (Component) 6.1 mg/dL (0.6-1.3); Estimated Creatinine Clearance 14.5 mL/min (>60); Globulin 3.9 gm/dL (2.3-3.5); Glucose 209 mg/dL (74-106); Magnesium 1.9 mg/dL (1.6-2.6); Osmolality,Calculated 285 (275-295); Phosphorous 3.4 mg/dL (2.4-5.1); Potassium 4.0 mMol/L (3.4-5.1); Sodium 136 mMol/L (136-145); Total Protein 7.0 gm/dL (5.7-8.2); eGFR 8 See Note
[2025-09-05] MEDS: SEVELAMER CARBONATE 800 MG TABLET PO ×2 (07:32→11:32)
[2025-09-05] MEDS: INSULIN LISPRO (AdmeLOG) 1 UNIT/0.01 ML UNIT SC (07:34)
[2025-09-05] MEDS: PROPRANOLOL 10 MG TABLET PO (09:02)
[2025-09-05] MEDS: PANTOPRAZOLE 40 MG TABLET PO (09:03)
[2025-09-05] MEDS: cefTRIAXone/D5w 1gm IV premix 1 GM/50 ML BAG IV (09:03)
[2025-09-05] MEDS: ASCORBIC ACID 250 MG TABLET 1000 MG PO (09:03)
[2025-09-05] MEDS: INSULIN DEGLUDEC 5 UNIT/0.05 ML (PER 5 UNITS) SC (09:04)
--- NOTE | 2025-09-05 09:06 | PC.SS ---
Addendum entered by Effie Trevizo 09/05/25 12:51: SS updated Son, Derick Dc, on change of chair as well as DC today fr 1530 going to [facility] Original Note: SS spoke to EMILY Bhatt who provided SS with new chair time TTHSAT 11am, SS updated [facility] Stephanie
--- NOTE | 2025-09-05 09:39 | PD.RESPRO ---
Documentation for date of: 09/05/25 Exam Vital Signs Temp Pulse Resp BP Pulse Ox O2 Del Method O2 Flow Rate 97.6 F 69 19 129/56 L 94 L Room Air 1 09/05/25 08:00 09/05/25 09:03 09/05/25 08:00 09/05/25 09:03 09/05/25 08:00 09/05/25 08:00 09/05/25 04:00 Objective Labs 09/05/25 04:48 09/05/25 04:48 Labs: Laboratory Results - last 24 hr 09/05/25 04:48 WBC 2.2 L RBC 2.62 L Hgb 7.9 L Hct 25.3 L MCV 97 MCH 30.2 MCHC 31.2 RDW Std Deviation 60.5 H Plt Count 20 L* Neut % (Auto) 61 Lymph % (Auto) 19 [place] % (Auto) 15 H Eos % (Auto) 4 Baso % (Auto) 0 Neut # (Auto) 1.4 L Lymph # (Auto) 0.4 L [place] # (Auto) 0.3 Eos # (Auto) 0.1 Baso # (Auto) 0.0 Immature Gran # (Auto) 0.02 H Absolute Nucleated RBC 0.00 Immature Gran % 1 H Nucleated RBC % 0 Sodium 136 Potassium 4.0 Chloride 98 Carbon Dioxide 28.4 Anion Gap 10 BUN 34 H Creatinine 6.1 H* D Estim Creat Clear Calc 14.5 L eGFR 8 L* BUN/Creatinine Ratio 6 L Glucose 209 H Calculated Osmolality 285 Calcium 8.6 Corrected Calcium 9.3 Phosphorus 3.4 Magnesium 1.9 Total Bilirubin 1.4 H AST 30 ALT 8 L Alkaline Phosphatase 58 Total Protein 7.0 Albumin 3.1 L Globulin 3.9 H Albumin/Globulin Ratio 0.8 L Misc Test Result Platelets confirmed ABG Interpretation ABG results: 08/20/25 09:18 VBG pH 7.38 VBG pCO2 29 L VBG pO2 72 H VBG Base Excess -8 L Quality Measures Quality Measures VTE prophylaxis Assessment & Plan Assessment Current Active Medications: Generic Name Dose Route Start Last Admin Trade Name Freq PRN Reason Stop Dose Admin Acetaminophen 650 mg 09/03/25 22:48 09/03/25 22:58 Acetaminophen 325 Mg Tablet PO 10/03/25 22:47 650 mg Q4HR PRN Administration Fever >101F or pain 1-6 Amlodipine Besylate 10 mg 08/23/25 09:00 09/05/25 09:03 Amlodipine Besylate 5 Mg Tablet PO 09/22/25 08:59 10 mg QDAY SHERYL Administration Ascorbic Acid 1,000 mg 09/01/25 09:00 09/05/25 09:03 Ascorbic Acid 250 Mg Tablet PO 10/01/25 08:59 1,000 mg DAILY SHERYL Administration Atorvastatin Calcium 10 mg 08/21/25 21:00 09/04/25 20:52 Atorvastatin Calcium 10 Mg Tablet PO 09/20/25 20:59 10 mg HS SHERYL Administration Dextrose 25 ml 08/20/25 10:14 Dextrose 50%-Water Inj 50 Ml Syringe IV 09/19/25 10:13 Q15MIN PRN BG 50-70 responsive npo pt Dextrose 50 ml 08/20/25 10:14 Dextrose 50%-Water Inj 50 Ml Syringe IV 09/19/25 10:13 Q15MIN PRN BG <50 OR BG <70 & pt unresponsive Diphenhydramine HCl 25 mg 08/31/25 08:07 08/31/25 18:02 Diphenhydramine 25 Mg Capsule PO 09/30/25 08:06 25 mg On Hold: 09/02/25 08:35 Q6HR PRN Administration ITCHING Gabapentin 300 mg 08/31/25 09:00 09/01/25 13:39 Gabapentin 300 Mg Capsule PO 09/30/25 08:59 300 mg On Hold: 09/02/25 08:27 QDAY SHERYL Administration Glucagon 1 mg 08/20/25 10:14 Glucagon Inj 1 Mg Vial IM Q15MIN PRN BG <70, and no IV access Heparin Sodium (Porcine) 3,300 unit 08/25/25 11:40 09/01/25 11:40 Heparin Sod Inj 1000 Unit/Ml Vial 10 Ml INDWELLCAT 09/05/25 12:43 3,300 unit On Hold: 08/31/25 14:50 PRN PRN Administration DIALYSIS Albumin Human 25 gm in 100 mls @ 100 mls/hr 08/27/25 07:42 08/30/25 10:03 Albuminex 25% Ivpb IV 100 mls/hr Q30MIN PRN Administration DIALYSIS Ceftriaxone Sodium/Dextrose 1 gm in 50 mls @ 100 mls/hr 09/03/25 09:00 09/05/25 09:03 Rocephin/D5w 1gm Iv Premix IV 09/10/25 08:59 100 mls/hr QDAY SHERYL Administration Insulin Degludec 25 unit 09/05/25 21:00 Insulin Degludec 5 Unit/0.05 Ml (Per 5 Units) SC 10/05/25 20:59 HS SHERYL Insulin Human Lispro 0 unit 08/29/25 21:15 09/05/25 07:34 Insulin Lispro (Admelog) 1 Unit/0.01 Ml Unit SC 09/28/25 21:14 3 unit ACHS SHERYL Administration Protocol Lactulose 20 gm 08/20/25 22:00 09/05/25 05:52 Lactulose Syrup 20 Gm/30 Ml Udc PO 09/19/25 21:59 20 gm TID SHERYL Administration Protocol Ondansetron HCl 4 mg 08/20/25 10:08 Ondansetron Inj 2 Mg/Ml Inj 2 Ml IVP 09/19/25 10:07 Q6H PRN NAUSEA OR VOMITING Protocol Pantoprazole Sodium 40 mg 09/01/25 09:15 09/05/25 09:03 Pantoprazole 40 Mg Tablet PO 10/01/25 09:14 40 mg BID SHERYL Administration Propranolol HCl 10 mg 08/20/25 21:00 09/05/25 09:02 Propranolol 10 Mg Tablet PO 09/19/25 20:59 10 mg BID SHERYL Administration Rifaximin 550 mg 09/02/25 12:30 09/05/25 09:03 Rifaximin 550 Mg Tablet PO 09/09/25 12:29 550 mg BID SHERYL Administration Sevelamer Carbonate 800 mg 08/23/25 12:00 09/05/25 07:32 Sevelamer Carbonate 800 Mg Tablet PO 09/22/25 11:59 800 mg TIDWM SHERYL Administration
--- NOTE | 2025-09-05 11:29 | ESDS_ITS ---
<Statement entered by Maria Fernanda Mann DO - 09/06/25 13:26> I, Maria Fernanda Mann DO, attest that I was physically present for the blank portions of the service and evaluated the patient with the resident and I reviewed and discussed the case with the resident and agree with the resident's findings and plans of care as documented above <Statement entered by Willis Ta MD - 09/05/25 15:05> Note reviewed and agree with care plan as documented. Please refer to the note below for further details. Plan discussed with attending physician Dr. Mackenzie Ta MD PGY-2 Internal Medicine Planned Discharge Date 09/05/25 DS: Providers Provider Date of admission: 08/20/25 10:08 Primary care physician: Flip Ferraro MD Admitting Provider: Darian Gonzalez MD Attending Provider on Admission: Maria Fernanda Mann DO Consults: 08/20/25 10:16 Consult to Nephrology Stat Comment: Consulting Provider: Nathaniel Neil 08/20/25 10:28 Consult to Cardiology Stat Comment: Consulting Provider: Kenia Peterson 08/20/25 13:26 Referral Physical Therapy Routine Comment: Physician Instructions: 08/22/25 17:04 Referral Wound Care Routine Comment: 08/25/25 09:39 Consult to Gastroenterology Routine Comment: acute on chronic anemia requiring blood transfusio Consulting Provider: Kajal Ny 08/30/25 13:42 Consult to Hematology Stat Comment: Thrombocytopenia Consulting Provider: Vaibhav Ortiz Attending Provider on DC: Maria Fernanda Mann DO Discharging Provider: Maria Fernanda Mann DO Anticipated date of discharge: 09/05/25 DS: Diagnosis Problem List Completed Was Problem List Reviewed/Reconciled?: Yes Hospital Course Hospital Course Hospital course: Summary Ms Hopper is a 55 year old woman with a hx significant for advanced CKD that progressed to ESRD, HFpEF 55-60 12/2024, HLD, HTN,ESLD, who presented to the ED on 08/20/2025 with malaise and shortness of breath. She was found to be significantly volume overloaded with elevated BUN and creatinine. Nephrology (Dr. Neil) was consulted, and she was admitted for ESRD management and emergent hemodialysis. She underwent tunneled catheter placement on 08/24/2025 and initiated regular dialysis, resulting in improvement of her renal panel. During hospitalization, the patient developed pancytopenia with thrombocytopenia and leukopenia. Hematology (Dr. Ortiz) was consulted. She received 4 units PRBC, 4 units platelet transfusions, and 15 units cryoprecipitate, resulting in improved H&H and platelet count (from 13 to 20 at discharge). Ms. Hopper experienced multiple episodes of hematochezia. Colonoscopy on 08/29 revealed Grade I internal hemorrhoids; symptoms persisted, and flexible sigmoidoscopy on 09/02 revealed Grade IV internal hemorrhoids, which were banded, resolving the hematochezia. The patient also experienced an acute episode of metabolic encephalopathy after initially refusing lactulose. Stroke protocol was initiated; imaging was negative. Outpatient medications including [place], gabapentin, and Benadryl were continued. Mental status improved with resumption of lactulose. Other medical issues were addressed appropriately throughout the hospital course, and the patient showed overall clinical improvement. Patient to be discharged to a retirement facility with ongoing management as per nephrology, hematology, and gastroenterology recommendations. Discharge recommendation: -Please continue with your dialysis sessions Friday, Friday, Friday -For your thigh wound, please continue seeing the wound care nurses outpatient -Some changes were made to your medications, - your blood pressure was elevated so you were started on amlodipine 10mg once a day - please take your iron supplement every other day. - you were started on a medication called sevelamer carbonate to help with your phosphate levels, please take 800 mg three times a day with meals. - your Gabapentin was changed because you started dialysis please only take Gabapentin 300 mg three times a week after dialysis -Follow up with PCP within 1 week of discharge, if you do not have a primary care physician you can come see us at the [facility] by calling [phone] -Continue rest of medications as previously prescribed -Return to the ED or call EMS if symptoms return and/or worsen Hospital Diagnoses: #Coagulopathy #Leukopenia(improving) #Pancytopenia #Severe persistent thrombocytopenia #Chronic Normocytic Anemia #Acute posthemorrhagic anemia # Hematochezia and hematuria #GI bleed #Grade II internal hemorrhoids-> Grade IV, banded #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 #Metabolic encephalopathy(resolve) #Hematuria (resolving) #Acute Cystitis #Hx of Advanced CKD, now with ESRD on HD #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 [place] #Moderate Ascites #Hyperammonemia #HFpEF (echo 12/2024 w EF 55-60%) #Type II NSTEMI #Acute CHF exacerbation - resolved #Type 2 DM, insulin dependent #Diabetic Neuropathy #HTN #HLD #Gout #PHUONG #Chronic low back pain #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 Time Spent with Patient Time attestation: Total time spent providing and/or coordinating discharge services: Time spent: Greater than 30 minutes Exam Vital Signs Temp Pulse Resp BP Pulse Ox O2 Del Method O2 Flow Rate 97.6 F 69 19 129/56 L 94 L Room Air 1 09/05/25 08:00 09/05/25 09:03 09/05/25 08:00 09/05/25 09:03 09/05/25 08:00 09/05/25 08:00 09/05/25 04:00 Narrative Exam General: alert and oriented to self/place/year, no acute distress, able to speak full sentences; mordbidly obsese, expressing muscle/achy pain in LLE HEENT: NC/AT, mucous membranes moist, bilateral sclera anicteric Cardiovascular: regular rate and rhythm, S1/S2 present, no murmurs appreciated Pulmonary: clear to auscultation bilaterally, no rales/rhonchi/wheezes Abdominal: soft, nontender, present bowel sounds Musculoskeletal: Bilateral pitting edema Skin: Warm, well-perfused; bilateral ecchymoses at sites of IV's, antecubital area(s) Discharge Plan Plan Patient Disposition: Xfer Skilled Nsg Fac (SNF) Disposition Comment: [facility] Patient condition on transfer: Stable Care Plan Goals: -Please continue with your dialysis sessions Friday, Friday, Friday -For your thigh wound, please continue seeing the wound care nurses outpatient -Some changes were made to your medications, - your blood pressure was elevated so you were started on amlodipine 10mg once a day - please take your iron supplement every other day. - you were started on a medication called sevelamer carbonate to help with your phosphate levels, please take 800 mg three times a day with meals. - your Gabapentin was changed because you started dialysis please only take Gabapentin 300 mg three times a week after dialysis -Follow up with PCP within 1 week of discharge, if you do not have a primary care physician you can come see us at the [facility] by calling [phone] -Continue rest of medications as previously prescribed -Return to the ED or call EMS if symptoms return and/or worsen Prescriptions/Referrals Prescriptions/Med Rec: New amlodipine 10 mg tablet 10 mg PO QDAY 30 Days Qty: 30 0RF gabapentin 300 mg tablet extended release 24 hr 300 mg PO .3 times a week 30 Days Qty: 30 0RF Rx Instructions: 3 times a week after dialysis session sevelamer carbonate 800 mg Tablet 800 mg PO TIDWM 30 Days Qty: 90 0RF insulin degludec 200 unit/mL (3 mL) insulin pen 20 unit subcut HS 30 Days Qty: 3 0RF rifaximin 550 mg tablet 550 mg PO BID 30 Days Qty: 60 0RF insulin lispro 100 unit/mL Solution 0 unit subcut ACHS 30 Days Qty: 3 0RF Continued ursodiol 300 mg Capsule 300 mg PO TID propranolol 10 mg tablet 10 mg PO BID Patient Comments: TAKE ONE TABLET BY MOUTH TWICE DAILY FOR BLOOD PRESSURE atorvastatin 10 mg tablet 10 mg PO HS Patient Comments: TAKE ONE TABLET BY MOUTH EVERY DAY FOR CHOLESTEROL cholecalciferol (vitamin D3) [Vitamin D3] 25 mcg (1,000 unit) Tablet 50 mcg PO QDAY ascorbic acid (vitamin C) [Vitamin C] 1,000 mg Tablet 1,000 mg PO DAILY medroxyprogesterone 10 mg tablet 10 mg PO BID zinc sulfate 50 mg zinc (220 mg) Capsule 50 mg PO QDAY medroxyprogesterone 5 mg tablet 5 mg PO DAILY Patient Comments: TAKE ONE TABLET BY MOUTH EVERY DAY hydrocodone-acetaminophen 10-325 mg tablet 1 tab PO Q12H PRN (Reason: pain) Patient Comments: TAKE ONE TABLET BY MOUTH EVERY TWELVE HOURS NEEDED FOR PAIN lactulose 10 gram/15 mL solution 20 g PO TID Qty: 3000 0RF (DME) FreeStyle Isaac 3 [place] Misc See Rx Instructions .Route Qty: 1 0RF Rx Instructions: As directed (DME) FreeStyle Isaac 3 Sensor Device See Rx Instructions .Route Qty: 1 3RF Rx Instructions: As directed colchicine 0.6 mg tablet 0.6 mg PO Q OTHER DAY 90 Days Qty: 45 0RF B complex-vitamin C-folic acid [Arlene-Kathrin] 1 tab .Route DAILY Changed ferrous sulfate 325 mg (65 mg iron) tablet,delayed release (DR/EC) 325 mg PO Q OTHER DAY 30 Days Qty: 15 0RF Patient Comments: TAKE ONE TABLET BY MOUTH EVERY DAY Held metolazone 5 mg tablet 5 mg PO DAILY Hold Instructions: Resume on 09/07/25. Hold until you see your arson investigator Patient Comments: TAKE ONE TABLET BY MOUTH EVERY MORNING BEFORE furosemide A DIURETIC Discontinued insulin glargine [Basaglar KwikPen U-100 Insulin] 100 unit/mL (3 mL) Insulin Pen 35 unit SUBCUT BID gabapentin 400 mg capsule 400 mg PO BID Patient Comments: TAKE ONE CAPSULE BY MOUTH TWICE DAILY FOR NERVE PAIN Ozempic 0.25 mg or 0.5 mg (2 mg/3 mL) pen injector 0.5 mg SUBCUT .abdullahi week Patient Comments: INJECT 0.5 MG SUBCUTANEOUSLY EVERY WEEK FOR DIABETES furosemide 20 mg tablet 20 mg PO DAILY Qty: 7 0RF Patient Comments: TAKE ONE TABLET BY MOUTH EVERY MORNING A DIURETIC insulin aspart U-100 100 unit/mL (3 mL) Insulin Pen 20 unit SUBCUT TIDPC 90 Days Qty: 15 0RF Rx Instructions: TID after meals Referrals: Flip Ferraro MD [Primary Care Provider, Family Practice] Patient/Caregiver Discharge Instructions Other Discharge Activity Instructions:: Follow up with [facility] Dialysis Center [facility], #[phone]. Chair time: Mon/Wed/Fri. @ 4:30a.m. Education Materials: Erythropoietin (Blood), Treating Cirrhosis, Understanding Cirrhosis, Kidney Disease Potassium in Diet, Kidney Disease Fluid Intake Print Language: Greenlandic Stand Alone Forms: [facility] Award Info., Patient Portal Info Letter Discharge Order Discharge Orders: Discharge (Routine); Ordered 09/05/25 Ordered By: Elyssa Cruz Quality Discharge Quality Measures VTE prophylaxis (SCD)
--- NOTE | 2025-09-05 11:50 | ESPR_ITS ---
Documentation for date of: 09/05/25 Subjective Subjective Interval history: Hemoglobin hematocrit 8.6 and 28.6 Exam Vital Signs Temp Pulse Resp BP Pulse Ox O2 Del Method O2 Flow Rate 97.6 F 69 19 129/56 L 94 L Room Air 1 09/05/25 08:00 09/05/25 09:03 09/05/25 08:00 09/05/25 09:03 09/05/25 08:00 09/05/25 08:00 09/05/25 04:00 Objective Labs 09/05/25 04:48 09/05/25 04:48 Labs: Laboratory Results - last 24 hr 09/05/25 04:48 WBC 2.2 L RBC 2.62 L Hgb 7.9 L Hct 25.3 L MCV 97 MCH 30.2 MCHC 31.2 RDW Std Deviation 60.5 H Plt Count 20 L* Neut % (Auto) 61 Lymph % (Auto) 19 [place] % (Auto) 15 H Eos % (Auto) 4 Baso % (Auto) 0 Neut # (Auto) 1.4 L Lymph # (Auto) 0.4 L [place] # (Auto) 0.3 Eos # (Auto) 0.1 Baso # (Auto) 0.0 Immature Gran # (Auto) 0.02 H Absolute Nucleated RBC 0.00 Immature Gran % 1 H Nucleated RBC % 0 Sodium 136 Potassium 4.0 Chloride 98 Carbon Dioxide 28.4 Anion Gap 10 BUN 34 H Creatinine 6.1 H* D Estim Creat Clear Calc 14.5 L eGFR 8 L* BUN/Creatinine Ratio 6 L Glucose 209 H Calculated Osmolality 285 Calcium 8.6 Corrected Calcium 9.3 Phosphorus 3.4 Magnesium 1.9 Total Bilirubin 1.4 H AST 30 ALT 8 L Alkaline Phosphatase 58 Total Protein 7.0 Albumin 3.1 L Globulin 3.9 H Albumin/Globulin Ratio 0.8 L Misc Test Result Platelets confirmed Impressions Impression: Lower GI bleed secondary to inflamed ulcerated internal hemorrhoid requiring medication No bleeding since then okay to discharge patient home to be followed by the PCP ABG Interpretation ABG results: 08/20/25 09:18 VBG pH 7.38 VBG pCO2 29 L VBG pO2 72 H VBG Base Excess -8 L Assessment & Plan A&P Narrative # Hemoccult positive stool with drop in hemoglobin hematocrit requiring blood transfusion on a weekly basis Plan N.p.o. midnight tonight except p.o. meds Consent obtained in the dialysis room for fiberoptic esophagogastroduodenoscopy with possible biopsy possible therapeutic intervention under intravenous moderate sedation scheduled for tomorrow morning Depending on the results of the upper endoscopy patient may need a colonoscopy prior to discharge and as there is no record of colonoscopy on board although she claims she had a colonoscopy in the last 2 [address] 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
--- NOTE | 2025-09-05 12:46 | PC.SS ---
SS set up transport for pt going to [facility] Trip #[id number] SS also set up first chair transport Trip #[id number] for tomorrow pickup from [facility] going to [facility] for first chair at 0930
--- NOTE | 2025-09-19 15:04 | PC.SS ---
LILIAN received call from Stephanie at [facility] who states [facility] did not send PASRR assessment when pt d/c to their facility. LILIAN has sent PASRR assessment through file exchange upon Stephanie's request.
== END 2025-09-05 15:38 | disposition skilled nursing facility (03) | DRG 952 ==
LOC: SERX 08-20 08:36 → SERHOLD 08-20 10:30 → S2NX 08-20 14:07 → S3NX 08-26 16:30 → S2NX 09-01 05:11
PROVIDERS: Nurse Anesthetist, Certified Registered; Physician Assistant; Specialist; Student in an Organized Health Care Education/Training Program; Admitting Provider Internal Medicine; Emergency Provider Emergency Medicine; PCP Family Medicine; Visit Provider Internal Medicine
PROC: (CPT 43239; principal; 2025-08-26 15:45)
PROC: 0DJD8ZZ Inspection of Lower Intestinal Tract, Via Natural or Artificial Opening Endoscopic (ICD-10-PCS; CPT 45378; principal; 2025-08-29 13:45)
DX: N17.9 Acute kidney failure, unspecified (principal); N18.6 End stage renal disease; E11.40 Type 2 diabetes mellitus with diabetic neuropathy, unspecified; M10.9 Gout, unspecified; D69.59 Other secondary thrombocytopenia; D73.1 Hypersplenism; K74.60 Unspecified cirrhosis of liver; Z87.891 Personal history of nicotine dependence; E87.5 Hyperkalemia; I50.33 Acute on chronic diastolic (congestive) heart failure; R18.8 Other ascites; Z79.4 Long term (current) use of insulin; G47.33 Obstructive sleep apnea (adult) (pediatric); G89.29 Other chronic pain; E83.39 Other disorders of phosphorus metabolism; I13.2 Hypertensive heart and chronic kidney disease with heart failure and with stage 5 chronic kidney disease, or end stage renal disease; I21.A1 Myocardial infarction type 2; E78.00 Pure hypercholesterolemia, unspecified; E11.22 Type 2 diabetes mellitus with diabetic chronic kidney disease; D63.1 Anemia in chronic kidney disease; E66.01 Morbid (severe) obesity due to excess calories; D62 Acute posthemorrhagic anemia; Z68.44 Body mass index [BMI] 60.0-69.9, adult; E83.41 Hypermagnesemia; E87.6 Hypokalemia; E87.20 Acidosis, unspecified; I85.10 Secondary esophageal varices without bleeding; K74.5 Biliary cirrhosis, unspecified; K75.81 Nonalcoholic steatohepatitis (NASH); K76.82 Hepatic encephalopathy; K76.6 Portal hypertension; L02.214 Cutaneous abscess of groin; N30.01 Acute cystitis with hematuria; M72.6 Necrotizing fasciitis; K72.10 Chronic hepatic failure without coma; R47.01 Aphasia; K64.0 First degree hemorrhoids; K64.1 Second degree hemorrhoids; K85.90 Acute pancreatitis without necrosis or infection, unspecified; Z74.01 Bed confinement status; Z79.85 Long-term (current) use of injectable non-insulin antidiabetic drugs; Z79.899 Other long term (current) drug therapy; Z90.710 Acquired absence of both cervix and uterus; Z67.11 Type A blood, Rh negative; Z99.2 Dependence on renal dialysis
CPT/HCPCS: 36415; 51702; 70450; 71045; 74176; 76937; 77001; 80048; 80053; 80069; 80074; 81001; 82140; 82270; 82728; 82746; 82803; 83036; 83540; 83550; 83605; 83690; 83735; 83880; 84100; 84484; 85014; 85018; 85025; 85384; 85610; 85730; 86580; 86850; 86900; 86901; 86923; 86927; 86965; 87086; 87635; 93005; 93225; 93970; 96374; 96375; 97163; 99285; A4314; A4649; C1752; C1769; C1894; J0612; J0689; J0696; J1171; J1200; J1642; J1643; J1815; J1938; J2354; J2470; J2597; J3010; J3475; J3490; J7050; J7999; P9012; P9016; P9035; P9047; Q5105; Q5106; A9270